=== PATIENT | male | born 1940 | race Caucasian/White ===

== ENCOUNTER 2016-07-21 14:41 | Emergency (ER) | payer MEDICARE ==
[2016-07-21 14:49] VITALS: TEMP 97
[2016-07-21] MEDS ORDERED: MORPHINE SULFATE 4 MG/ML SYRINGE IV STA (15:13)
[2016-07-21] MEDS ORDERED: SODIUM CHLORIDE 0.9% 1,000 ML IV STA ×2 (15:13)
[2016-07-21] MEDS ORDERED: HYDROcodone/APAP 10-325MG 1 EACH TAB PO ONE (16:03)
[2016-07-21 16:07] LABS: Basophils # (A) 0.1 k/uL (0-0.2); Basophils % (A) 1 %; CHCM 32.4; Eosinophils # (A) 0.5 k/uL (0-0.7); Eosinophils % (A) 4 %; HCT 34.2 % (39.0-53.0); HGB 10.5 gm/dL (13.0-17.5); Hypochromasia Slight; Luc # (Auto) 0.14; Luc % (Auto) 1; Lymphocytes # (A) 1.5 k/uL (1.0-4.8); Lymphocytes % (A) 13 %; MCH 29.5 pg (25.0-35.0); MCHC 30.6 g/dL (31.0-37.0); MCV 96.3 fL (80.0-100.0); Mean Platelet Volume 7.4; Monocytes # (A) 0.8 k/uL (0-1.0); Monocytes % (A) 7 %; Neutrophils # (A) 8.6 k/uL (1.3-7.7); Neutrophils % (A) 75 %; Poikilocytosis Slight; RBC 3.55 m/uL (4.30-5.90); RDW 14.4 % (11.5-15.5); WBC 11.6 k/uL (3.8-10.6); WBC (Perox) 11.73
[2016-07-21] MEDS ORDERED: HYDROcodone/APAP 5-325MG 1 EACH TAB PO STA (16:07)
[2016-07-21 16:19] LABS: Calcium 9.4 mg/dL (8.4-10.2); Magnesium 1.5 mg/dL (1.6-2.3); Phosphorous 4.2 mg/dL (2.5-4.5); Potassium 3.7 mmol/L (3.5-5.1); Total Bilirubin 0.6 mg/dL (0.2-1.3); Total Protein 7.1 g/dL (6.3-8.2)
[2016-07-21 16:21] LABS: INR 1.1 (<1.1); Partial Thromboplastin Time 22.4 sec (22.0-30.0)
[2016-07-21 16:27] LABS: Creatine Kinase 54 U/L (55-170)
[2016-07-21 16:39] LABS: Troponin I <0.012 ng/mL (0.000-0.034)
--- NOTE | 2016-07-21 17:01 | CT ---
EXAMINATION TYPE: CT brain wo con DATE OF EXAM: 07/21/2016 4:57 PM COMPARISON: NONE HISTORY: Patient complains of posterior head pain and left arm numbness. CT DLP: 902.4 mGycm Automated exposure control for dose reduction was used. FINDINGS: There is mild cerebral cortical atrophy. There is no mass effect or midline shift. There is no sign o f intracranial hemorrhage. The calvarium is intact. IMPRESSION: Mild atrophy. No acute intracranial abnormality.
--- NOTE | 2016-07-21 17:09 | ED ---
General Adult HPI - General Chief complaint: Headache Stated complaint: head & shoulder pain-post op Time Seen by Provider: 07/21/16 15:04 Source: patient, RN notes reviewed, old records reviewed Mode of arrival: wheelchair Limitations: no limitations - History of Present Illness Initial comments: This is a 76-year-old male here for evaluation a. Patient's coming in for evaluation of multiple complaints. Most complaints heavy-duty with weakness and fatigue. Patient received going to increased stress with severe surgery, CABG, infection to incision, and prolonged hospitalization rehab. Hospitalization and again rehab. Patient states he is having left shoulder pain which is mechanical, worse with movement. No chest pain no shortness of breath no abdominal pain occasional headaches. No modifying factors for symptoms. No fevers no trauma. - Related Data Home Medications Medication Instructions Recorded Confirmed Ipratropium-Albuterol Nebulize 3 ml INHALATION RT-TID 06/19/16 07/22/16 [Duoneb 0.5 mg-3 mg/3 ml Soln] Pantoprazole [Protonix] 40 mg PO DAILY 06/19/16 07/22/16 Sennosides-Docusate Sodium 2 tab PO HS 06/19/16 07/22/16 [Senokot-S] metFORMIN HCL [Glucophage] 500 mg PO BID 06/19/16 07/22/16 Aspirin 325 mg PO HS 07/21/16 07/22/16 Atorvastatin [Lipitor] 40 mg PO HS 07/21/16 07/22/16 Cholecalciferol [Vitamin D3] 1,000 unit PO HS 07/21/16 07/22/16 amLODIPine [Norvasc] 5 mg PO DAILY 07/21/16 07/22/16 Allopurinol [Zyloprim] 150 mg PO DAILY 07/22/16 07/22/16 Melatonin 1 mg PO HS 07/22/16 07/22/16 Psyllium Husk 100% [Metamucil 6 gm PO DAILY 07/22/16 07/22/16 Packet] Previous Rx's Medication Instructions Recorded Clopidogrel [Plavix] 75 mg PO DAILY tab 06/12/16 Metoprolol Tartrate [Lopressor] 150 mg PO BID #0 06/26/16 Vancomycin 1,750 mg IVPB Q24HR #21 bag 07/25/16 Diclofenac Sodium Gel [Voltaren 4 gm TOPICAL QID tube 07/26/16 Gel] HYDROcodone/APAP 5-325MG [[place] 1 tab PO Q4HR PRN #20 tab 07/26/16 5-325] Mupirocin 2% Oint [Bactroban 2% 1 applic TOPICAL DAILY applic 07/26/16 Oint] Petrolatum, White [Aquaphor] 1 applic TOPICAL DAILY applic 07/26/16 Allergies Allergy/AdvReac Type Severity Reaction Status Date / Time No Known Allergies Allergy Verified 07/22/16 08:22 Review of Systems ROS Statement: Those systems with pertinent positive or pertinent negative responses have been documented in the HPI. ROS Other: All systems not noted in ROS Statement are negative. Past Medical History Past Medical History: Cancer, Hyperlipidemia, Hypertension, Musculoskeletal Disorder, Sleep Apnea/CPAP/BIPAP Additional Past Medical History / Comment(s): GOUT,SKIN CA 2005, CHRONIC BACK PAIN,CONSTIPATION,BLISTERS ON LEGS, TESTICALS SWELING, BOTTOM REDDEND NO OPEN AREA History of Any Multi-Drug Resistant Organisms: None Reported Past Surgical History: Cholecystectomy, Coronary Bypass/CABG, Heart Catheterization, Joint Replacement, Tonsillectomy Additional Past Surgical History / Comment(s): COLONOSCOPY, EGD, CANCEROUS SKIN LESIONS REMOVED, TOTAL RIGHT KNEE REPLACEMENT, QUAD BYPASS Past Anesthesia/Blood Transfusion Reactions: Previous Problems w/ Anesthesia Additional Past Anesthesia/Blood Transfusion Reaction / Comment(s): HAD A HARD TIME COMING OUT OF ANESTHESIA AFTER CHOLECYSTECTOMY Past Psychological History: No Psychological Hx Reported Additional Psychological History / Comment(s): HAD CABG -WENT TO [facility] FOR REHAB. STATED THAT PT AHS BEEN GETTING UP WALKING TID. USES W/C FOR LONG DISTANCE. 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 No illnesses when he was there. No animal exposures. There is no family home with his . No extensive travels. Tobacco smoking stopped in 1988. No significant alcohol use Smoking Status: Former smoker Past Alcohol Use History: Occasional Past Drug Use History: None Reported - Past Family History Father Family Medical History: Vascular Disorder Additional Family Medical History / Comment(s): POOR CIRCULATION-HAD AMPUTATIONS D/T POOR CIRCULATION Mother Family Medical History: Cancer General Exam - General Exam Comments Initial Comments: Tenderness to left shoulder Limitations: no limitations General appearance: alert, in no apparent distress Head exam: Present: atraumatic, normocephalic, normal inspection Eye exam: Present: normal appearance, PERRL, EOMI. Absent: scleral icterus, conjunctival injection, periorbital swelling ENT exam: Present: normal exam, mucous membranes moist Neck exam: Present: normal inspection. Absent: tenderness, meningismus, lymphadenopathy Respiratory exam: Present: normal lung sounds bilaterally. Absent: respiratory distress, wheezes, rales, rhonchi, stridor Cardiovascular Exam: Present: regular rate, normal rhythm, normal heart sounds. Absent: systolic murmur, diastolic murmur, rubs, gallop, clicks GI/Abdominal exam: Present: soft, normal bowel sounds. Absent: distended, tenderness, guarding, rebound, rigid Extremities exam: Present: normal inspection, full ROM, normal capillary refill. Absent: tenderness, pedal edema, joint swelling, calf tenderness Back exam: Present: normal inspection Neurological exam: Present: alert, oriented X3, CN II-XII intact Psychiatric exam: Present: normal affect, normal mood Skin exam: Present: warm, dry, intact, normal color. Absent: rash Course Vital Signs 07/21/16 07/21/16 07/21/16 14:43 15:30 16:00 Temperature 97.0 F L Pulse Rate 90 90 Pulse Rate [ 90 Rivet Sorter ] Respiratory 22 20 Rate Blood Pressure 185/75 185/79 O2 Sat by Pulse 88 L 96 Oximetry 07/21/16 07/21/16 17:00 18:00 Temperature Pulse Rate 88 90 Pulse Rate [ Rivet Sorter ] Respiratory 18 20 Rate Blood Pressure 179/78 179/80 O2 Sat by Pulse 95 95 Oximetry EKG Findings - EKG Comments: EKG Findings:: EKG shows normal sinus rhythm rate of 91, pO2 2, QRS 86, QTC 452 Medical Decision Making - Medical Decision Making 76 male to the ER with postoperative symptoms. Patient having issues with pain left shoulder pain, chest pain. Headache. All studies are negative at this time, lab work is normal, patient does have urinary tract infection, we'll start antibiotics and patient can be discharged home outpatient spelled with greater than 15 minutes regarding medical conditions, activity level, patient feels good with plan - Lab Data Result diagrams: 07/21/16 15:55 07/21/16 15:55 Lab Results 07/21/16 07/21/16 07/21/16 Range/Units 15:55 15:55 15:55 WBC 11.6 H (3.8-10.6) k/uL RBC 3.55 L (4.30-5.90) m/uL Hgb 10.5 L (13.0-17.5) gm/dL Hct 34.2 L (39.0-53.0) % MCV 96.3 (80.0-100.0) fL MCH 29.5 (25.0-35.0) pg MCHC 30.6 L (31.0-37.0) g/dL RDW 14.4 (11.5-15.5) % Plt Count 474 H (150-450) k/uL Neutrophils % 75 % Lymphocytes % 13 % Monocytes % 7 % Eosinophils % 4 % Basophils % 1 % Neutrophils # 8.6 H (1.3-7.7) k/uL Lymphocytes # 1.5 (1.0-4.8) k/uL Monocytes # 0.8 (0-1.0) k/uL Eosinophils # 0.5 (0-0.7) k/uL Basophils # 0.1 (0-0.2) k/uL Hypochromasia Slight Poikilocytosis Slight PT (9.0-12.0) sec INR (<1.1) APTT (22.0-30.0) sec Sodium 141 (137-145) mmol/L Potassium 3.7 (3.5-5.1) mmol/L Chloride 94 L (98-107) mmol/L Carbon Dioxide 32 H (22-30) mmol/L Anion Gap 15 mmol/L BUN 16 (9-20) mg/dL Creatinine 1.42 H (0.66-1.25) mg/dL Est GFR (MDRD) Af Amer 59 (>60 ml/min/1.73 sqM) Est GFR (MDRD) Non-Af 49 (>60 ml/min/1.73 sqM) Glucose 115 H (74-99) mg/dL Plasma Lactic Acid Paul (0.7-2.0) mmol/L Calcium 9.4 (8.4-10.2) mg/dL Phosphorus 4.2 (2.5-4.5) mg/dL Magnesium 1.5 L (1.6-2.3) mg/dL Total Bilirubin 0.6 (0.2-1.3) mg/dL AST 25 (17-59) U/L ALT 29 (21-72) U/L Alkaline Phosphatase 89 (38-126) U/L Total Creatine Kinase 54 L (55-170) U/L CK-MB (CK-2) 1.0 (0.0-2.4) ng/mL CK-MB (CK-2) Rel Index 1.9 Troponin I <0.012 (0.000-0.034) ng/mL NT-Pro-B Natriuret Pep pg/mL Total Protein 7.1 (6.3-8.2) g/dL Albumin 4.2 (3.5-5.0) g/dL Urine Color Urine Appearance (Clear) Urine pH (5.0-8.0) Ur Specific [place] (1.001-1.035) Urine Protein (Negative) Urine Glucose (UA) (Negative) Urine Ketones (Negative) Urine Blood (Negative) Urine Nitrate (Negative) Urine Bilirubin (Negative) Urine Urobilinogen (<2.0) mg/dL Ur Leukocyte Esterase (Negative) Urine RBC (0-5) /hpf Urine WBC (0-5) /hpf Ur Squamous Epith Cells (0-4) /hpf Hyaline Casts (0-2) /lpf Urine Mucus (None) /hpf 07/21/16 07/21/16 07/21/16 Range/Units 15:55 15:55 15:55 WBC (3.8-10.6) k/uL RBC (4.30-5.90) m/uL Hgb (13.0-17.5) gm/dL Hct (39.0-53.0) % MCV (80.0-100.0) fL MCH (25.0-35.0) pg MCHC (31.0-37.0) g/dL RDW (11.5-15.5) % Plt Count (150-450) k/uL Neutrophils % % Lymphocytes % % Monocytes % % Eosinophils % % Basophils % % Neutrophils # (1.3-7.7) k/uL Lymphocytes # (1.0-4.8) k/uL Monocytes # (0-1.0) k/uL Eosinophils # (0-0.7) k/uL Basophils # (0-0.2) k/uL Hypochromasia Poikilocytosis PT 11.0 (9.0-12.0) sec INR 1.1 (<1.1) APTT 22.4 (22.0-30.0) sec Sodium (137-145) mmol/L Potassium (3.5-5.1) mmol/L Chloride (98-107) mmol/L Carbon Dioxide (22-30) mmol/L Anion Gap mmol/L BUN (9-20) mg/dL Creatinine (0.66-1.25) mg/dL Est GFR (MDRD) Af Amer (>60 ml/min/1.73 sqM) Est GFR (MDRD) Non-Af (>60 ml/min/1.73 sqM) Glucose (74-99) mg/dL Plasma Lactic Acid Paul 1.4 (0.7-2.0) mmol/L Calcium (8.4-10.2) mg/dL Phosphorus (2.5-4.5) mg/dL Magnesium (1.6-2.3) mg/dL Total Bilirubin (0.2-1.3) mg/dL AST (17-59) U/L ALT (21-72) U/L Alkaline Phosphatase (38-126) U/L Total Creatine Kinase (55-170) U/L CK-MB (CK-2) (0.0-2.4) ng/mL CK-MB (CK-2) Rel Index Troponin I (0.000-0.034) ng/mL NT-Pro-B Natriuret Pep 2400 pg/mL Total Protein (6.3-8.2) g/dL Albumin (3.5-5.0) g/dL Urine Color Urine Appearance (Clear) Urine pH (5.0-8.0) Ur Specific [place] (1.001-1.035) Urine Protein (Negative) Urine Glucose (UA) (Negative) Urine Ketones (Negative) Urine Blood (Negative) Urine Nitrate (Negative) Urine Bilirubin (Negative) Urine Urobilinogen (<2.0) mg/dL Ur Leukocyte Esterase (Negative) Urine RBC (0-5) /hpf Urine WBC (0-5) /hpf Ur Squamous Epith Cells (0-4) /hpf Hyaline Casts (0-2) /lpf Urine Mucus (None) /hpf 07/21/16 Range/Units 17:52 WBC (3.8-10.6) k/uL RBC (4.30-5.90) m/uL Hgb (13.0-17.5) gm/dL Hct (39.0-53.0) % MCV (80.0-100.0) fL MCH (25.0-35.0) pg MCHC (31.0-37.0) g/dL RDW (11.5-15.5) % Plt Count (150-450) k/uL Neutrophils % % Lymphocytes % % Monocytes % % Eosinophils % % Basophils % % Neutrophils # (1.3-7.7) k/uL Lymphocytes # (1.0-4.8) k/uL Monocytes # (0-1.0) k/uL Eosinophils # (0-0.7) k/uL Basophils # (0-0.2) k/uL Hypochromasia Poikilocytosis PT (9.0-12.0) sec INR (<1.1) APTT (22.0-30.0) sec Sodium (137-145) mmol/L Potassium (3.5-5.1) mmol/L Chloride (98-107) mmol/L Carbon Dioxide (22-30) mmol/L Anion Gap mmol/L BUN (9-20) mg/dL Creatinine (0.66-1.25) mg/dL Est GFR (MDRD) Af Amer (>60 ml/min/1.73 sqM) Est GFR (MDRD) Non-Af (>60 ml/min/1.73 sqM) Glucose (74-99) mg/dL Plasma Lactic Acid Paul (0.7-2.0) mmol/L Calcium (8.4-10.2) mg/dL Phosphorus (2.5-4.5) mg/dL Magnesium (1.6-2.3) mg/dL Total Bilirubin (0.2-1.3) mg/dL AST (17-59) U/L ALT (21-72) U/L Alkaline Phosphatase (38-126) U/L Total Creatine Kinase (55-170) U/L CK-MB (CK-2) (0.0-2.4) ng/mL CK-MB (CK-2) Rel Index Troponin I (0.000-0.034) ng/mL NT-Pro-B Natriuret Pep pg/mL Total Protein (6.3-8.2) g/dL Albumin (3.5-5.0) g/dL Urine Color Light Yellow Urine Appearance Clear (Clear) Urine pH 5.5 (5.0-8.0) Ur Specific [place] 1.006 (1.001-1.035) Urine Protein Trace H (Negative) Urine Glucose (UA) Negative (Negative) Urine Ketones Negative (Negative) Urine Blood Negative (Negative) Urine Nitrate Negative (Negative) Urine Bilirubin Negative (Negative) Urine Urobilinogen <2.0 (<2.0) mg/dL Ur Leukocyte Esterase Moderate H (Negative) Urine RBC 2 (0-5) /hpf Urine WBC 16 H (0-5) /hpf Ur Squamous Epith Cells 4 (0-4) /hpf Hyaline Casts 1 (0-2) /lpf Urine Mucus Rare H (None) /hpf - Radiology Data Radiology results: report reviewed (CT brain, negative for acute disease, chest shoulder), image reviewed Disposition Clinical Impression: Weakness, UTI (urinary tract infection) Disposition: HOME SELF-CARE Condition: Good Instructions: Weakness (ED), Urinary Tract Infection in Men (ED) Referrals: Martinez Yoo MD [Primary Care Provider] - 1-2 days
--- NOTE | 2016-07-21 17:21 | XR ---
EXAMINATION TYPE: XR chest 2V DATE OF EXAM: 07/21/2016 5:07 PM COMPARISON: 06/24/2016 HISTORY: Shoulder pain. Chest pain TECHNIQUE: Frontal and lateral views of the chest are obtained. FINDINGS: There is blunting of costophrenic angles. There is infiltrate at the left lung base. There is mild pulmonary congestion. There are chest leads. There are sternal wires. IMPRESSION: There are pleural effusions and mild infiltrates at the lung bases. There is probably mi ld heart failure. No change compared to last exam.
--- NOTE | 2016-07-21 17:22 | XR ---
EXAMINATION TYPE: XR clavicle LT DATE OF EXAM: 07/21/2016 5:07 PM COMPARISON: NONE HISTORY: Shoulder pain TECHNIQUE: 2 views FINDINGS: There is narrowing and spurring at the AC joint. There is obliteration of the subacromial j oint space. I see no fracture. IMPRESSION: Severe subacromial impingement consistent with chronic rotator cuff tear. Osteoarthritis of the AC joint. No fracture seen.
--- NOTE | 2016-07-21 17:23 | XR ---
EXAMINATION TYPE: XR shoulder complete LT DATE OF EXAM: 07/21/2016 5:08 PM COMPARISON: NONE HISTORY: Shoulder pain TECHNIQUE: 4 views FINDINGS: There is spurring at the glenohumeral joint. There is obliteration of subacromial joint spa ce. There is spurring at the AC joint. IMPRESSION: Osteoarthritis. No fracture. Subacromial impingement consistent with chronic rotator cuff tear.
[2016-07-21 18:24] LABS: Appearance,Urine Clear (Clear); Bilirubin,Urine Negative (Negative); Glucose,Urine (UA) Negative (Negative); Ketones,Urine Negative (Negative); Leukocyte Esterase,Urine Moderate (Negative); Mucus,Urine Rare /hpf; Nitrite,Urine Negative (Negative); PH, Urine 5.5 (5.0-8.0); Particle Count 1666; Protein,Urine Trace (Negative); RBC,Urine 2 /hpf (0-5); Specific Gravity,Urine 1.006 (1.001-1.035); Squamous Epithelial Cell,Urine 4 /hpf (0-4); UA Billing (MACRO vs. MICRO) MICRO; Urobilinogen,Urine <2.0 mg/dL (<2.0); WBC,Urine 16 /hpf (0-5)
[2016-07-21 18:47] VITALS: BP 179/80; PULSE 90; RESP 20
== END 2016-07-21 18:15 | disposition home or self-care (01) ==
LOC: EC 14:41
DX: N39.0 Urinary tract infection, site not specified (principal); R53.1 Weakness; R91.8 Other nonspecific abnormal finding of lung field; J90 Pleural effusion, not elsewhere classified; I10 Essential (primary) hypertension; E78.5 Hyperlipidemia, unspecified; M10.9 Gout, unspecified; M19.012 Primary osteoarthritis, left shoulder; Z87.891 Personal history of nicotine dependence; Z95.1 Presence of aortocoronary bypass graft; G47.30 Sleep apnea, unspecified; Z79.899 Other long term (current) drug therapy; Z79.84 Long term (current) use of oral hypoglycemic drugs; Z79.02 Long term (current) use of antithrombotics/antiplatelets
CPT/HCPCS: 36415; 70450; 71020; 80053; 81001; 82550; 82553; 83605; 83735; 83880; 84100; 84484; 85025; 85610; 85730; 87086; 93005; 99284

== ENCOUNTER 2016-07-22 05:44 | Inpatient (IN) | payer MEDICARE ==
[2016-07-22] MEDS ORDERED: IBUPROFEN 600 MG TAB PO STA (05:49)
[2016-07-22] MEDS ORDERED: ACETAMINOPHEN TAB 500 MG TAB PO STA (05:49)
[2016-07-22] MEDS ORDERED: SODIUM CHLORIDE 0.9% 1,000 ML IV STA (05:49)
[2016-07-22] MEDS ORDERED: LEVOFLOXACIN 750MG-D5W PMX 750 MG in DEXTROSE/WATER 1 150ML.BAG IVPB STA (05:53)
[2016-07-22] MEDS ORDERED: SODIUM CHLORIDE 0.9% 500 ML IV STA (05:57)
--- NOTE | 2016-07-22 05:57 | ED ---
General Adult HPI - General Source: patient, EMS, RN notes reviewed Mode of arrival: EMS Limitations: no limitations <Steve Rico - Last Filed: 07/22/16 06:41> <Joe Sanabria - Last Filed: 07/22/16 09:14> - General Chief complaint: Weakness Stated complaint: fall, diarrhea, weakness Time Seen by Provider: 07/22/16 05:45 - History of Present Illness Initial comments: This is a 76-year-old male who presents to the emergency department after having been seen within the last 24 hours and emergency department. Patient was home went to the bathroom was unable to get off the toilet he was too weak all over. Patient's was there and she was unable to assist him enough weak he could off the toilet. Patient states he just feels completely fatigued. He was told earlier that he had a urinary tract infection. Patient denies any shortness of breath or difficulty breathing he states he does have an occasional cough. Patient denies any abdominal pain he denies nausea vomiting states she did have some diarrhea tonight. Patient denies any headache. Patient denies lightheadedness or dizziness patient denies any focal weakness or numbness. Patient's only complaint is that he is generally weak and fatigued. (Steve Rico) - Related Data Home Medications Medication Instructions Recorded Confirmed Furosemide [Lasix] 40 mg PO DAILY 06/19/16 07/22/16 Ipratropium-Albuterol Nebulize 3 ml INHALATION RT-TID 06/19/16 07/22/16 [Duoneb 0.5 mg-3 mg/3 ml Soln] Pantoprazole [Protonix] 40 mg PO DAILY 06/19/16 07/22/16 Sennosides-Docusate Sodium 2 tab PO HS 06/19/16 07/22/16 [Senokot-S] metFORMIN HCL [Glucophage] 500 mg PO BID 06/19/16 07/22/16 ALPRAZolam [Xanax] 0.25 mg PO TID 07/21/16 07/22/16 Aspirin 325 mg PO HS 07/21/16 07/22/16 Atorvastatin [Lipitor] 40 mg PO HS 07/21/16 07/22/16 Cholecalciferol [Vitamin D3] 1,000 unit PO HS 07/21/16 07/22/16 amLODIPine [Norvasc] 5 mg PO DAILY 07/21/16 07/22/16 Allopurinol [Zyloprim] 150 mg PO DAILY 07/22/16 07/22/16 Melatonin 1 mg PO HS 07/22/16 07/22/16 Psyllium Husk 100% [Metamucil] 6 gm PO DAILY 07/22/16 07/22/16 Previous Rx's Medication Instructions Recorded Clopidogrel [Plavix] 75 mg PO DAILY tab 06/12/16 HYDROcodone/APAP 5-325MG [[place] 1 tab PO Q4HR PRN #20 tab 06/26/16 5-325] Metoprolol Tartrate [Lopressor] 150 mg PO BID #0 06/26/16 Allergies Allergy/AdvReac Type Severity Reaction Status Date / Time No Known Allergies Allergy Verified 07/22/16 08:22 Review of Systems ROS Other: All systems not noted in ROS Statement are negative. <Steve Rico - Last Filed: 07/22/16 06:41> ROS Other: All systems not noted in ROS Statement are negative. <Joe Sanabria - Last Filed: 07/22/16 09:14> ROS Statement: Those systems with pertinent positive or pertinent negative responses have been documented in the HPI. Past Medical History Past Medical History: Cancer, Hyperlipidemia, Hypertension, Musculoskeletal Disorder, Sleep Apnea/CPAP/BIPAP Additional Past Medical History / Comment(s): GOUT,SKIN CA 2005, CHRONIC BACK PAIN,CONSTIPATION,BLISTERS ON LEGS, TESTICALS SWELING, BOTTOM REDDEND NO OPEN AREA History of Any Multi-Drug Resistant Organisms: None Reported Past Surgical History: Cholecystectomy, Coronary Bypass/CABG, Heart Catheterization, Joint Replacement, Tonsillectomy Additional Past Surgical History / Comment(s): COLONOSCOPY, EGD, CANCEROUS SKIN LESIONS REMOVED, TOTAL RIGHT KNEE REPLACEMENT, QUAD BYPASS Past Anesthesia/Blood Transfusion Reactions: Previous Problems w/ Anesthesia Additional Past Anesthesia/Blood Transfusion Reaction / Comment(s): HAD A HARD TIME COMING OUT OF ANESTHESIA AFTER CHOLECYSTECTOMY Past Psychological History: No Psychological Hx Reported Additional Psychological History / Comment(s): HAD CABG -WENT TO [facility] FOR REHAB. STATED THAT PT AHS BEEN GETTING UP WALKING TID. USES W/C FOR LONG DISTANCE. 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 No illnesses when he was there. No animal exposures. There is no family home with his . No extensive travels. Tobacco smoking stopped in 1988. No significant alcohol use Smoking Status: Former smoker Past Alcohol Use History: Occasional Past Drug Use History: None Reported - Past Family History Father Family Medical History: Vascular Disorder Additional Family Medical History / Comment(s): POOR CIRCULATION-HAD AMPUTATIONS D/T POOR CIRCULATION Mother Family Medical History: Cancer <Steve Rico - Last Filed: 07/22/16 06:41> General Exam Limitations: no limitations <Steve Rico - Last Filed: 07/22/16 06:41> <Joe Sanabria - Last Filed: 07/22/16 09:14> - General Exam Comments Initial Comments: GENERAL: Patient is well-developed and well-nourished. Patient is nontoxic and well- hydrated and is in mild distress. Patient feels febrile ENT: Neck is soft and supple. No significant lymphadenopathy is noted. Oropharynx is clear. Moist mucous membranes. Neck has full range of motion without eliciting any pain. EYES: The sclera were anicteric and conjunctiva were pink and moist. Extraocular movements were intact and pupils were equal round and reactive to light. Eyelids were unremarkable. PULMONARY: Diminished breath sounds with some crackles in the bases CARDIOVASCULAR: There is a regular rate and rhythm without any murmurs gallops or rubs. ABDOMEN: Soft and nontender with normal bowel sounds. No palpable organomegaly was noted. There is no palpable pulsatile mass. SKIN: Skin is clear with no lesions or rashes and otherwise unremarkable. NEUROLOGIC: Patient is alert and oriented x3. Cranial nerves II through XII are grossly intact. Motor and sensory are also intact. Normal speech, volume and content. Symmetrical smile. MUSCULOSKELETAL: Normal extremities with adequate strength and full range of motion. 2+ edema. LYMPHATICS: No significant lymphadenopathy is noted PSYCHIATRIC: Normal psychiatric evaluation. (Steve Rico) Medical Decision Making <Steve Rico - Last Filed: 07/22/16 06:41> - Lab Data Result diagrams: 07/22/16 06:50 07/22/16 06:50 <Joe Sanabria - Last Filed: 07/22/16 09:14> - Medical Decision Making Dr. Ferro will be taking over care of this patient at 7 AM (Steve Rico) I receive this patient has a sign out from Dr. Rico, to arrange the patient's admission once his studies had returned. The patient's lactic acid is now elevated. Discussed the case with Dr. Barcenas, who will admit the patient. The patient will have infectious disease consultation with Dr. Lala. Antibiotic coverage started by Dr. Rico, and additional cultures are pending. ( Joe Sanabria) - Lab Data Lab Results 07/22/16 07/22/16 07/22/16 Range/Units 06:50 06:50 06:50 WBC 13.1 H (3.8-10.6) k/uL RBC 3.83 L (4.30-5.90) m/uL Hgb 11.1 L (13.0-17.5) gm/dL Hct 36.7 L (39.0-53.0) % MCV 95.8 (80.0-100.0) fL MCH 29.1 (25.0-35.0) pg MCHC 30.4 L (31.0-37.0) g/dL RDW 14.4 (11.5-15.5) % Plt Count 481 H (150-450) k/uL Neutrophils % (Manual) 86.0 % Band Neutrophils % 7.0 % Lymphocytes % (Manual) 3.0 % Monocytes % (Manual) 3.0 % Eosinophils % (Manual) 1.0 % Neutrophils # (Manual) 12.2 H (1.3-7.7) k/uL Lymphocytes # (Manual) 0.4 L (1.0-4.8) k/uL Monocytes # (Manual) 0.4 (0-1.0) k/uL Eosinophils # (Manual) 0.1 (0-0.7) k/uL Nucleated RBCs 0 (0-0) /100 WBC Manual Slide Review Performed Hypochromasia Moderate Poikilocytosis Slight Sodium 143 (137-145) mmol/L Potassium 4.2 (3.5-5.1) mmol/L Chloride 96 L (98-107) mmol/L Carbon Dioxide 29 (22-30) mmol/L Anion Gap 18 mmol/L BUN 21 H (9-20) mg/dL Creatinine 1.43 H (0.66-1.25) mg/dL Est GFR (MDRD) Af Amer 59 (>60 ml/min/1.73 sqM) Est GFR (MDRD) Non-Af 48 (>60 ml/min/1.73 sqM) Glucose 142 H (74-99) mg/dL Plasma Lactic Acid Paul 2.3 H* (0.7-2.0) mmol/L Calcium 9.4 (8.4-10.2) mg/dL Total Bilirubin 0.9 (0.2-1.3) mg/dL AST 38 (17-59) U/L ALT 30 (21-72) U/L Alkaline Phosphatase 75 (38-126) U/L Total Protein 7.4 (6.3-8.2) g/dL Albumin 4.2 (3.5-5.0) g/dL Disposition <Steve Rico - Last Filed: 07/22/16 06:41> <Joe Sanabria - Last Filed: 07/22/16 09:14> Clinical Impression: Sepsis Disposition: ADMITTED IP TO THIS [facility] Condition: Poor
[2016-07-22 07:08] LABS: CH 30.2; CHCM 31.7; HCT 36.7 % (39.0-53.0); HDW 3.85; HGB 11.1 gm/dL (13.0-17.5); Hypochromasia Moderate; Immature Gran Flag Marked; MCH 29.1 pg (25.0-35.0); MCHC 30.4 g/dL (31.0-37.0); MCV 95.8 fL (80.0-100.0); Mean Platelet Volume 7.4; Poikilocytosis Slight; RBC 3.83 m/uL (4.30-5.90); RDW 14.4 % (11.5-15.5); WBC 13.1 k/uL (3.8-10.6); WBC (Perox) 12.81
[2016-07-22 07:21] LABS: Calcium 9.4 mg/dL (8.4-10.2); Total Bilirubin 0.9 mg/dL (0.2-1.3)
[2016-07-22 07:26] LABS: Potassium 4.2 mmol/L (3.5-5.1); Total Protein 7.4 g/dL (6.3-8.2)
[2016-07-22 07:53] LABS: Add Differential Manual Differential
[2016-07-22 07:54] LABS: Manual Review Performed; Nucleated Red Blood Cells 0 /100 WBC (0-0); Total Cells Counted 100
[2016-07-22] MEDS ORDERED: IV VANCOMYCIN PER PHARMACY 1 EACH MISC MISCELLANE PRN (08:52)
[2016-07-22] MEDS ORDERED: SODIUM CHLORIDE 0.9% 1,000 ML IV ONE (08:54)
[2016-07-22] MEDS ORDERED: ENOXAPARIN 120 MG/0.8 ML SYRINGE SQ STA (09:00)
[2016-07-22] MEDS ORDERED: VANCOMYCIN 1,750 MG in SODIUM CHLORIDE 0.9% 250 ML IVPB STA (09:03)
[2016-07-22 10:15] LABS: INR 1.1 (<1.1); Prothrombin Time 10.7 sec (9.0-12.0)
[2016-07-22 10:23] LABS: Partial Thromboplastin Time 20.8 sec (22.0-30.0)
[2016-07-22 10:26] LABS: Creatine Kinase MB 1.5 ng/mL (0.0-2.4); Troponin I 0.027 ng/mL (0.000-0.034)
--- NOTE | 2016-07-22 11:35 | US ---
EXAMINATION TYPE: US venous doppler duplex LE DATE OF EXAM: 07/22/2016 10:21 AM COMPARISON: Prior leg venous Doppler 23 December 2013 CLINICAL HISTORY: Bilateral leg pain and swelling. Grayscale, color Doppler, spectral Doppler imaging performed of the deep veins of the lower extremiti es. SIDE PERFORMED: Bilateral VESSELS IMAGED: External Iliac Vein (EIV) Common Femoral Vein Deep Femoral Vein Greater Saphenous Vein * Femoral Vein Popliteal Vein Small Saphenous Vein * Proximal Calf Veins (* superficial vessels) TECHNOLOGIST IMPRESSION: Right Leg: Negative for DVT Left Leg: Negative for DVT, left popliteal fossa: 5.1 x 1.7 x 2.5cm hypoechoic area medial to vessel s, possible Newell's cyst IMPRESSION: No evidence of venous thrombosis within the deep veins of the lower extremities is visua iza. 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
[2016-07-22] MEDS ORDERED: LIDOCAINE 2% INJ 20 MG/ML SQ ONE (15:58)
--- NOTE | 2016-07-22 16:47 | IR ---
EXAMINATION TYPE: IR cvc insert >=5 years DATE OF EXAM: 07/22/2016 4:19 PM COMPARISON: NONE CLINICAL HISTORY: Sepsis Needs long-term intravenous access for antibiotics. PROCEDURE: After informed consent, the skin overlying the right brachial vein was localized with ultrasound and noted to be compressible and patent. An ultrasound image was obtained and submitted on the patient's chart. The overlying skin was prepped and draped and Lidocaine was used for local anesthesia. A sk in ilia was made with a scalpel. Access was gained to the vein under ultrasound guidance with a 21 g auge needle and a 0.018 inch wire was advanced. Access site was dilated with Peel-Away sheath and ca theter tailored to the appropriate length and advanced such that the distal tip is at the cavoatrial junction. Spot image was obtained verifying placement. Catheter was fixed to the skin with suture a nd a sterile dressing was placed following hemostasis. Catheter was aspirated and flushed with salin e. Patient was discharged in stable condition without complication. Maximal barrier technique is uti lized. Ultrasound image is documented on the chart. Ultrasound used with sterile technique. Fluoro time and fluoroscopic images submitted to document procedure: 0.7 minutes fluoroscopy time, 50 intraoperative C-arm images IMPRESSION: STATUS POST ULTRASOUND AND FLUOROSCOPIC GUIDED PICC LINE PLACEMENT, READY FOR USE. THIS PROCEDURE WAS PERFORMED BY THE UNDERSIGNED.
--- NOTE | 2016-07-22 18:49 | P.CONS ---
History of Present Illness - Reason for Consult Consult date: 07/22/16 - Chief Complaint Generalized weakness and diarrhea - History of Present Illness Pleasant 76-year-old male presented to Hospital originally on 2015. The point, he had chest pain and was having a 6 weeks timeframe of increasing shortness of breath. On the day of presentation he was outside doing yard work he develops to be in chest pain became clammy and was brought to hospital. It evidence of a non-ST myocardial infarction. Cardiac catheterization was performed evidence of severe coronary disease as well as left distal main thrombosis. He was then taken to the operating room and had a four-vessel coronary artery bypass grafting procedure his sternum required repair with a cable and plate system. He did go to [facility] rehab for rehabilitation after his stay because he was so weak. 3 days before his second admission on 06/19/2016 he was or any of some difficulty with the sternal wound. Is unable bit of drainage. As he was admitted and infectious disease consultation occurred. He had evidence of an Acientobacter infection at that site. It was treated with antibiotic therapy. Marked improvement and was discharged. Subsequently he is then brought to the home setting after his rehab stay. She'll relatively well until the last 48 hours. The patient's relates that the occupational therapist, the home and they noticed that he was unable to raise his left arm. He has been evaluated and likely has a tear to his left shoulder. Although this was noted the patient was started have increasing difficulties with not feeling well. He was becoming much more weak. He developed significant amounts of diarrhea but there is evidence of any melena or hematochezia. He became dehydrated and was brought back to the emergency room again today. He subsequently has been admitted is receiving fluids. There is concerns. The fever to 102 and there could be a urinary tract infection versus sepsis. His lactic acid was elevated. It is tender patient has been admitted to selective care. He is feeling slightly better since he received some fluids. IV access was a great difficulty and a PICC line has now been placed. Review of Systems HEENT:Denies headache or acute visual change. Denies sinus or mouth discomforts. Denies neck stiffness or pain. Denies significant oral cavity pain. Denies difficulty on swallowing. Lungs: Has dyspnea on exertion with minimal cough. He is not having severe sputum production and no hemoptysis. Cardiovascular: Not having chest pain. But does have dyspnea on exertion. Is having chest wall discomfort. He is not having syncope. Gastrointestinal:Denies nausea, vomiting, , constipation, hematemesis, melena, hematochezia. Musculoskeletal: denies significant myalgias or arthralgias. No new joint swelling. Denies new back pain. Skin: Denies new rash or lesions. No new ulcers or wounds are related.. Neuro: Denies headache or visual change. Denies any new onset weakness or difficulty with ambulation. Denies falls or seizures. Psychiatric:Denies anxiety or depression. Endocrine: Severe fatigue and has been having some mild weight loss. Past Medical History Past Medical History: Coronary Artery Disease (CAD), Cancer, Hyperlipidemia, Hypertension, Musculoskeletal Disorder, Sleep Apnea/CPAP/BIPAP Additional Past Medical History / Comment(s): Pt recently admitted to [facility] with infected sternal wound/leg blisters post CABG. He currently has a packed wound on his sternum. 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 History of Any Multi-Drug Resistant Organisms: None Reported Past Surgical History: Cholecystectomy, Coronary Bypass/CABG, Heart Catheterization, Joint Replacement, Tonsillectomy Additional Past Surgical History / Comment(s): PICC line insertion/removed, bilateral caract removals, COLONOSCOPY, EGD, CANCEROUS SKIN LESIONS REMOVED, TOTAL RIGHT KNEE REPLACEMENT, 06-04-16 QUAD BYPASS Past Anesthesia/Blood Transfusion Reactions: Previous Problems w/ Anesthesia Additional Past Anesthesia/Blood Transfusion Reaction / Comm: HAD A HARD TIME COMING OUT OF ANESTHESIA AFTER CHOLECYSTECTOMY Past Psychological History: No Psychological Hx Reported Additional Psychological History / Comment(s): Pt had CABG 06/04/16 and went to [facility] for rehab. He completed rehab and came home. Spouse states he then developed a sternal wound infection/blisters on legs and went back into [facility] and was discharged to [facility] again. He has again returned home. He was ambulating without device. His spouse was driving him to [employer]. 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 Was in the [employer] and was in the [employer] [place]. No illnesses when he was there. No animal exposures. There is no family home with his . No extensive travels. Tobacco smoking stopped in 1988. No significant alcohol use Smoking Status: Former smoker Past Alcohol Use History: Occasional Additional Past Alcohol Use History / Comment(s): Pt quit smoking in 1988 Past Drug Use History: None Reported - Past Family History Father Family Medical History: Vascular Disorder Additional Family Medical History / Comment(s): POOR CIRCULATION-HAD AMPUTATIONS D/T POOR CIRCULATION Mother Family Medical History: Cancer Medications and Allergies Home Medications and Allergies Comment(s): Laboratory Results WBC 13.1 k/uL (3.8-10.6) H 07/22/16 06:50 RBC 3.83 m/uL (4.30-5.90) L 07/22/16 06:50 Hgb 11.1 gm/dL (13.0-17.5) L 07/22/16 06:50 Hct 36.7 % (39.0-53.0) L 07/22/16 06:50 MCV 95.8 fL (80.0-100.0) 07/22/16 06:50 MCH 29.1 pg (25.0-35.0) 07/22/16 06:50 MCHC 30.4 g/dL (31.0-37.0) L 07/22/16 06:50 RDW 14.4 % (11.5-15.5) 07/22/16 06:50 Plt Count 481 k/uL (150-450) H 07/22/16 06:50 Neutrophils % (Manual) 86.0 % 07/22/16 06:50 Band Neutrophils % 7.0 % 07/22/16 06:50 Lymphocytes % (Manual) 3.0 % 07/22/16 06:50 Monocytes % (Manual) 3.0 % 07/22/16 06:50 Eosinophils % (Manual) 1.0 % 07/22/16 06:50 Neutrophils # (Manual) 12.2 k/uL (1.3-7.7) H 07/22/16 06:50 Lymphocytes # (Manual) 0.4 k/uL (1.0-4.8) L 07/22/16 06:50 Monocytes # (Manual) 0.4 k/uL (0-1.0) 07/22/16 06:50 Eosinophils # (Manual) 0.1 k/uL (0-0.7) 07/22/16 06:50 Nucleated RBCs 0 /100 WBC (0-0) 07/22/16 06:50 Manual Slide Review Performed 07/22/16 06:50 Hypochromasia Moderate 07/22/16 06:50 Poikilocytosis Slight 07/22/16 06:50 PT 10.7 sec (9.0-12.0) 07/22/16 06:50 INR 1.1 (<1.1) 07/22/16 06:50 APTT 20.8 sec (22.0-30.0) L 07/22/16 06:50 Sodium 143 mmol/L (137-145) 07/22/16 06:50 Potassium 4.2 mmol/L (3.5-5.1) 07/22/16 06:50 Chloride 96 mmol/L (98-107) L 07/22/16 06:50 Carbon Dioxide 29 mmol/L (22-30) 07/22/16 06:50 Anion Gap 18 mmol/L 07/22/16 06:50 BUN 21 mg/dL (9-20) H 07/22/16 06:50 Creatinine 1.43 mg/dL (0.66-1.25) H 07/22/16 06:50 Est GFR (MDRD) Af Amer 59 (>60 ml/min/1.73 sqM) 07/22/16 06:50 Est GFR (MDRD) Non-Af 48 (>60 ml/min/1.73 sqM) 07/22/16 06:50 Glucose 142 mg/dL (74-99) H 07/22/16 06:50 Plasma Lactic Acid Paul 1.3 mmol/L (0.7-2.0) 07/22/16 11:45 Calcium 9.4 mg/dL (8.4-10.2) 07/22/16 06:50 Total Bilirubin 0.9 mg/dL (0.2-1.3) 07/22/16 06:50 AST 38 U/L (17-59) 07/22/16 06:50 ALT 30 U/L (21-72) 07/22/16 06:50 Alkaline Phosphatase 75 U/L (38-126) 07/22/16 06:50 Total Creatine Kinase 132 U/L (55-170) 07/22/16 06:50 CK-MB (CK-2) 1.5 ng/mL (0.0-2.4) 07/22/16 06:50 CK-MB (CK-2) Rel Index 1.1 07/22/16 06:50 Troponin I 0.027 ng/mL (0.000-0.034) 07/22/16 06:50 Total Protein 7.4 g/dL (6.3-8.2) 07/22/16 06:50 Albumin 4.2 g/dL (3.5-5.0) 07/22/16 06:50 Cortisol 27 ug/dL 07/22/16 06:50 Influenza Type A RNA Not Detected (Not Detectd) 07/22/16 10:29 Influenza Type B (PCR) Not Detected (Not Detectd) 07/22/16 10:29 Home Medications Medication Instructions Recorded Confirmed Type Furosemide [Lasix] 40 mg PO DAILY 06/19/16 07/22/16 History Ipratropium-Albuterol Nebulize 3 ml INHALATION RT-TID 06/19/16 07/22/16 History [Duoneb 0.5 mg-3 mg/3 ml Soln] Pantoprazole [Protonix] 40 mg PO DAILY 06/19/16 07/22/16 History Sennosides-Docusate Sodium 2 tab PO HS 06/19/16 07/22/16 History [Senokot-S] metFORMIN HCL [Glucophage] 500 mg PO BID 06/19/16 07/22/16 History ALPRAZolam [Xanax] 0.25 mg PO TID 07/21/16 07/22/16 History Aspirin 325 mg PO HS 07/21/16 07/22/16 History Atorvastatin [Lipitor] 40 mg PO HS 07/21/16 07/22/16 History Cholecalciferol [Vitamin D3] 1,000 unit PO HS 07/21/16 07/22/16 History amLODIPine [Norvasc] 5 mg PO DAILY 07/21/16 07/22/16 History Allopurinol [Zyloprim] 150 mg PO DAILY 07/22/16 07/22/16 History Melatonin 1 mg PO HS 07/22/16 07/22/16 History Psyllium Husk 100% [Metamucil] 6 gm PO DAILY 07/22/16 07/22/16 History Allergies Allergy/AdvReac Type Severity Reaction Status Date / Time No Known Allergies Allergy Verified 07/22/16 08:22 Physical Exam Vitals: Vital Signs Temp Pulse Pulse Resp BP BP Pulse Ox 07/22/16 16:00 97.4 F L 83 18 142/67 95 07/22/16 15:00 79 16 127/55 100 07/22/16 13:45 98.1 F 86 16 151/67 07/22/16 12:57 83 18 125/59 97 07/22/16 11:27 90 18 155/70 94 L Intake and Output 07/22/16 07/22/16 07/22/16 06:59 14:59 22:59 Output Total 0 Balance 0 Output: Urine 0 Other: Voiding Method Urinal Pleasant superobese 76-year-old male who is supine in bed. Relates that he's feeling somewhat poorly but better than last night. HEENT: Anicteric conjunctiva are pink and moist nasal mucosa grossly intact without significant lesions, there is dry oral mucosa without thrush. Poor dentition Neck: The neck is supple without significant lymphadenopathy or thyromegaly. Lungs: Symmetrical air entry is noted. There are crackles in the left base. Few expiratory wheezes are noted. No lanie bronchial sounds are noted. Heart: Regular with an audible S1 and S2 soft S4 no distinct murmur click or rub is noted. PMI was not palpable Abdomen: Obese Positive bowel sounds soft and nontender without palpable masses or organomegaly. There was no guarding or rebound. Extremities: The upper extremities have excellent pulses they are symmetric, no significant petechiae or telangiectasia. No splinter hemorrhages were noted. PICC line is applied to the left arm. Does have complaint of some pain upon range of motion to the left shoulder. The bilateral extremities evidence of the chronic edema from his venous stasis. However improved from the last evaluation. There however free dry. Prior surgical wounds are all healed at this time. There is no open ulcerations or drainage. The peripheral pulses are 2+ and symmetric bilaterally. Neuro: Awake alert oriented to person place and time. There are no acute new gross focal sensory motor deficits. Results CBC & Chem 7: 07/22/16 06:50 07/22/16 06:50 Labs: Laboratory Results WBC 13.1 k/uL (3.8-10.6) H 07/22/16 06:50 RBC 3.83 m/uL (4.30-5.90) L 07/22/16 06:50 Hgb 11.1 gm/dL (13.0-17.5) L 07/22/16 06:50 Hct 36.7 % (39.0-53.0) L 07/22/16 06:50 MCV 95.8 fL (80.0-100.0) 07/22/16 06:50 MCH 29.1 pg (25.0-35.0) 07/22/16 06:50 MCHC 30.4 g/dL (31.0-37.0) L 07/22/16 06:50 RDW 14.4 % (11.5-15.5) 07/22/16 06:50 Plt Count 481 k/uL (150-450) H 07/22/16 06:50 Neutrophils % (Manual) 86.0 % 07/22/16 06:50 Band Neutrophils % 7.0 % 07/22/16 06:50 Lymphocytes % (Manual) 3.0 % 07/22/16 06:50 Monocytes % (Manual) 3.0 % 07/22/16 06:50 Eosinophils % (Manual) 1.0 % 07/22/16 06:50 Neutrophils # (Manual) 12.2 k/uL (1.3-7.7) H 07/22/16 06:50 Lymphocytes # (Manual) 0.4 k/uL (1.0-4.8) L 07/22/16 06:50 Monocytes # (Manual) 0.4 k/uL (0-1.0) 07/22/16 06:50 Eosinophils # (Manual) 0.1 k/uL (0-0.7) 07/22/16 06:50 Nucleated RBCs 0 /100 WBC (0-0) 07/22/16 06:50 Manual Slide Review Performed 07/22/16 06:50 Hypochromasia Moderate 07/22/16 06:50 Poikilocytosis Slight 07/22/16 06:50 PT 10.7 sec (9.0-12.0) 07/22/16 06:50 INR 1.1 (<1.1) 07/22/16 06:50 APTT 20.8 sec (22.0-30.0) L 07/22/16 06:50 Sodium 143 mmol/L (137-145) 07/22/16 06:50 Potassium 4.2 mmol/L (3.5-5.1) 07/22/16 06:50 Chloride 96 mmol/L (98-107) L 07/22/16 06:50 Carbon Dioxide 29 mmol/L (22-30) 07/22/16 06:50 Anion Gap 18 mmol/L 07/22/16 06:50 BUN 21 mg/dL (9-20) H 07/22/16 06:50 Creatinine 1.43 mg/dL (0.66-1.25) H 07/22/16 06:50 Est GFR (MDRD) Af Amer 59 (>60 ml/min/1.73 sqM) 07/22/16 06:50 Est GFR (MDRD) Non-Af 48 (>60 ml/min/1.73 sqM) 07/22/16 06:50 Glucose 142 mg/dL (74-99) H 07/22/16 06:50 Plasma Lactic Acid Paul 1.3 mmol/L (0.7-2.0) 07/22/16 11:45 Calcium 9.4 mg/dL (8.4-10.2) 07/22/16 06:50 Total Bilirubin 0.9 mg/dL (0.2-1.3) 07/22/16 06:50 AST 38 U/L (17-59) 07/22/16 06:50 ALT 30 U/L (21-72) 07/22/16 06:50 Alkaline Phosphatase 75 U/L (38-126) 07/22/16 06:50 Total Creatine Kinase 132 U/L (55-170) 07/22/16 06:50 CK-MB (CK-2) 1.5 ng/mL (0.0-2.4) 07/22/16 06:50 CK-MB (CK-2) Rel Index 1.1 07/22/16 06:50 Troponin I 0.027 ng/mL (0.000-0.034) 07/22/16 06:50 Total Protein 7.4 g/dL (6.3-8.2) 07/22/16 06:50 Albumin 4.2 g/dL (3.5-5.0) 07/22/16 06:50 Cortisol 27 ug/dL 07/22/16 06:50 Influenza Type A RNA Not Detected (Not Detectd) 07/22/16 10:29 Influenza Type B (PCR) Not Detected (Not Detectd) 07/22/16 10:29 Assessment and Plan (1) Sepsis Narrative/Plan: 76-year-old male presented to Hospital from home with a 48 hour history of feeling poorly. He presented emergency center and thought maybe he had a urinary tract infection. Was initiated to some oral antibiotic therapy. However the following hours continue to worsen. He became weak and was having worsening diarrhea was having difficulties trying to navigate the home. Apparently his brought him to Hospital via EMS. At presentation there was evidence of sepsis with a elevation of his leukocytosis as well as elevated lactic acid. he is responding well to fluid resuscitation. He is having some diarrhea and that is of concern and a C. difficile toxin been requested. He seems responded to fluid resuscitation. The lactic acidosis is improved. There is a concern to urinary tract infection as etiology for sepsis. Blood cultures are process. Urine cultures in process. He also has a difficulty with the erythema to the bilateral lower extremities. He constantly vancomycin therapy was initiated and also ceftriaxone is being started the possibility of a urinary tract infection. Will be monitored has cultures become available. Local wound care will be applied to the sternal wound with the Aquacel silver rope. Aquaphor to the bilateral lower extremities are wrapped. The to injury to the right foot topical mupirocin and Band-Aid is added. Status: Acute (2) UTI (urinary tract infection) Status: Acute (3) Leukocytosis Status: Acute (4) Elevated lactic acid level Status: Acute
[2016-07-22] MEDS: PETROLATUM, WHITE OINT 50 GM TUBE TOPICAL SCH (20:43)
[2016-07-22] MEDS: MUPIROCIN 2% OINT 22 GM TUBE TOPICAL SCH (20:43)
[2016-07-22] MEDS: METOPROLOL TARTRATE 50 MG TAB PO SCH (22:33)
[2016-07-22] MEDS: ALPRAZolam 0.25 MG TAB PO SCH (22:33)
[2016-07-22] MEDS: SENNOSIDES-DOCUSATE SODIUM 1 EACH TAB PO SCH (22:34)
[2016-07-22] MEDS: PSYLLIUM HUSK 100% 6 GM PACKET PO SCH (22:34)
[2016-07-23] MEDS: HYDROcodone/APAP 5-325MG 1 EACH TAB PO PRN ×2 (00:10→20:32)
[2016-07-23] MEDS: VANCOMYCIN 1,750 MG in SODIUM CHLORIDE 0.9% 250 ML IVPB SCH (05:55)
--- NOTE | 2016-07-23 06:21 | HP ---
DATE OF ADMISSION: 07/22/2016 PRESENTING COMPLAINT: Weak and tired. HISTORY OF PRESENTING COMPLAINT: This is a very pleasant 76-year-old patient known to me from prior admissions. Patient was here in the hospital also from 06/19/16 to 06/26/16. Patient recently has had a coronary artery bypass and was admitted on last admission with infection of the bypass wound. Cultures were positive for Acinetobacter baumannii and patient was discharged on ciprofloxacin 500 mg p.o. b.i.d. for 28 tablets the last tablet being yesterday. Other chronic stable medical conditions include coronary artery disease, hyperlipidemia, hypertension, sleep apnea, osteoarthritis. The patient over the last ( ) feeling very weak and tired, decreased oral intake. Did have 2 large bowel movements in the night. Denies any fever or any abdominal pain. Just run down. Decreased appetite. REVIEW OF SYSTEMS: CONSTITUTIONAL: Tired. HEENT: None. RESPIRATORY: Some shortness of breath. CARDIOVASCULAR: None. GASTROINTESTINAL: None. GENITOURINARY: None. MUSCULOSKELETAL: None. DERMATOLOGICAL: No more drainage from the incisional sternal wound site. LYMPHATICS: None. PSYCHIATRY: Feels a bit low. NEUROLOGICAL: None. Past medical history of hyperlipidemia, hypertension, sleep apnea, skin cancer, gout, osteoarthritis, diverticular disease, coronary artery disease. PAST SURGICAL HISTORY: Cholecystectomy, colonoscopy, EGD, right total knee replacement, coronary artery bypass. SOCIAL HISTORY: Smoked about a pack for about 25 years; stopped about 30 years ago. . 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 Family history of cancer. ALLERGIES: None. HOME MEDICATIONS: 1. Glucophage 500 mg p.o. b.i.d. 2. Norvasc 5 mg p.o. daily. 3. Senokot-S 2 tablets p.o. q.h.s. 4. Metamucil 6 grams p.o. daily. 5. Protonix 40 mg p.o. daily. 6. Lopressor 150 mg p.o. b.i.d. 7. Melatonin 1 mg p.o. q.h.s. 8. DuoNeb t.i.d. 9. Fairburn 5 one tablet q.4 p.r.n. 10. Lasix 40 mg p.o. daily. 11. Plavix 75 mg p.o. daily. 12. Vitamin D3, 1000 units p.o. q.h.s. 13. Lipitor 40 mg q.h.s. 14. Aspirin 325 p.o. q.h.s. 15. Allopurinol 150 mg p.o. daily. 16. Xanax 0.25 p.o. t.i.d. On examination, temperature 98.1, pulse 107, respirations 18, blood pressure 152/71, pulse ox 93% on 2 L. GENERAL APPEARANCE: Well built, BMI of 33.5. Lying in bed, very tired appearing. EYES: Pupils equal. Conjunctivae normal. HENT: Oral cavity normal. NECK: JVD unable to assess. Mass not palpable. RESPIRATORY: Effort increased. LUNGS: Diminished breath sounds. CARDIOVASCULAR: First and sounds normal. No edema. Boris wrap on the lower extremity. ABDOMEN: Soft, nontender. Liver and spleen not palpable. LYMPHATIC: No lymph nodes palpable in neck or axillae. PSYCHIATRY: Alert and oriented x3. Mood and affect slightly low-appearing. NEUROLOGICAL: Pupils equal. Cranial nerves grossly intact. Power and sensation grossly intact. INVESTIGATIONS: White count 13.1, hemoglobin 11.1, increased neutrophils. Potassium 4.2. BUN 21, creatinine 1.43. Lactic acid 2.3. ASSESSMENT: 1. This is a patient feeling extremely exhausted, weak, tired, rundown in a patient who just completed treatment for sternal wound infection with ciprofloxacin secondary to Acinetobacter baumannii. 2. Coronary artery disease with recent coronary artery bypass. 3. Morbid obesity, body mass index greater than ( ). 4. Hyperlipidemia, chronic. 5. Essential hypertension. 6. Chronic sleep apnea. 7. Primary osteoarthritis of multiple joints, bilateral. PLAN: Home medications are continued. Patient is put empirically on ceftriaxone and vancomycin. Care was discussed with the patient. Dr. Lala was consulted. Will follow.
[2016-07-23] MEDS: metFORMIN 500 MG TAB PO SCH ×2 (06:49→17:19)
[2016-07-23] MEDS: PANTOPRAZOLE 40 MG TABLET PO SCH (06:49)
[2016-07-23] MEDS ORDERED: LEVOFLOXACIN 750MG-D5W PMX 750 MG in DEXTROSE/WATER 1 150ML.BAG IVPB SCH (08:00)
[2016-07-23] MEDS: IPRATROPIUM-ALBUTEROL 3 ML NEB INHALATION SCH ×3 (08:41→20:15)
[2016-07-23] MEDS: MUPIROCIN 2% OINT 22 GM TUBE TOPICAL SCH (08:59)
[2016-07-23] MEDS ORDERED: FUROSEMIDE 40 MG TAB PO SCH (09:00)
--- NOTE | 2016-07-23 09:04 | XR ---
EXAMINATION TYPE: XR chest 2V DATE OF EXAM: 07/23/2016 8:26 AM COMPARISON: 06/24/2016 HISTORY: Shortness of breath FINDINGS: There are bilateral pleural effusions with cardiomegaly and bibasilar infiltrate. There is a diffuse interstitial pattern. Postoperative change and PICC line noted. Arthropathy of the shoulders. IMPRESSION: 1. Stable bilateral infiltrate and pleural effusion. Mild venous congestion not excluded.
[2016-07-23] MEDS: amLODIPine 5 MG TAB PO SCH (09:05)
[2016-07-23] MEDS: CLOPIDOGREL 75 MG TAB PO SCH (09:05)
[2016-07-23] MEDS: ALLOPURINOL 300 MG TAB PO SCH (09:05)
[2016-07-23] MEDS: METOPROLOL TARTRATE 50 MG TAB PO SCH ×2 (09:05→20:30)
[2016-07-23] MEDS: PSYLLIUM HUSK 100% 6 GM PACKET PO SCH (09:06)
[2016-07-23] MEDS: ALPRAZolam 0.25 MG TAB PO SCH ×3 (09:11→20:31)
[2016-07-23 09:12] LABS: Basophils # (A) 0.1 k/uL (0-0.2); Basophils % (A) 1 %; CH 30.2; CHCM 32.5; Eosinophils # (A) 0.5 k/uL (0-0.7); Eosinophils % (A) 5 %; HCT 33.4 % (39.0-53.0); HDW 4.11; HGB 10.7 gm/dL (13.0-17.5); Hypochromasia Slight; Luc # (Auto) 0.22; Luc % (Auto) 2; Lymphocytes # (A) 1.3 k/uL (1.0-4.8); Lymphocytes % (A) 12 %; MCH 29.7 pg (25.0-35.0); MCHC 31.9 g/dL (31.0-37.0); MCV 93.2 fL (80.0-100.0); Mean Platelet Volume 7.5; Monocytes # (A) 0.8 k/uL (0-1.0); Monocytes % (A) 7 %; Neutrophils # (A) 8.6 k/uL (1.3-7.7); Neutrophils % (A) 75 %; Poikilocytosis Moderate; RBC 3.59 m/uL (4.30-5.90); RDW 14.1 % (11.5-15.5); WBC 11.5 k/uL (3.8-10.6); WBC (Perox) 11.57
[2016-07-23 09:49] LABS: Anion Gap 15 mmol/L; Blood Urea Nitrogen 24 mg/dL (9-20); Calcium 9.7 mg/dL (8.4-10.2); Carbon Dioxide 31 mmol/L (22-30); Chloride 99 mmol/L (98-107); Glucose 133 mg/dL (74-99); Non-African American GFR(MDRD) 50 (>60 ml/min/1.73 sqM); Potassium 3.6 mmol/L (3.5-5.1); Sodium 145 mmol/L (137-145)
--- NOTE | 2016-07-23 12:29 | P.GSCN ---
History of Present Illness Consult date: 07/23/16 Reason for Consult: Patient known to us, status post quadruple coronary artery bypass grafting and sternal plating by Dr. Jacobs on 06/04/2016, dictated by superficial Acinetobacter sternal wound infection Requesting physician: Brannon Barcenas History of present illness: Patient is a 76 years old gentleman known to us status post quadruple coronary artery bypass grafting and sternal plating on 06/04/[address] Jacobs. Patient was readmitted early June with some drainage in the lower sternotomy aspect that grew Acinetobacter and was treated locally as it was superficial. Patient received IV antibiotics and was discharged on by mouth antibiotics that he just finished. Patient was readmitted for generalized weakness and diarrhea and near syncope. He denies fever or chills, chest pain. He overall had been feeling progressively better till this recent deterioration Past Medical History Past Medical History: Coronary Artery Disease (CAD), Cancer, Hyperlipidemia, Hypertension, Musculoskeletal Disorder, Sleep Apnea/CPAP/BIPAP Additional Past Medical History / Comment(s): Pt recently admitted to [facility] with infected sternal wound/leg blisters post CABG. He currently has a packed wound on his sternum. 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 History of Any Multi-Drug Resistant Organisms: None Reported Past Surgical History: Cholecystectomy, Coronary Bypass/CABG, Heart Catheterization, Joint Replacement, Tonsillectomy Additional Past Surgical History / Comment(s): PICC line insertion/removed, bilateral caract removals, COLONOSCOPY, EGD, CANCEROUS SKIN LESIONS REMOVED, TOTAL RIGHT KNEE REPLACEMENT, 06-04-16 QUAD BYPASS Past Anesthesia/Blood Transfusion Reactions: Previous Problems w/ Anesthesia Additional Past Anesthesia/Blood Transfusion Reaction / Comm: HAD A HARD TIME COMING OUT OF ANESTHESIA AFTER CHOLECYSTECTOMY Past Psychological History: No Psychological Hx Reported Additional Psychological History / Comment(s): Pt had CABG 06/04/16 and went to [facility] for rehab. He completed rehab and came home. Spouse states he then developed a sternal wound infection/blisters on legs and went back into [facility] and was discharged to [facility] again. He has again returned home. He was ambulating without device. His spouse was driving him to [place]. 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 No illnesses when he was there. No animal exposures. There is no family home with his . No extensive travels. Tobacco smoking stopped in 1988. No significant alcohol use Smoking Status: Former smoker Past Alcohol Use History: Occasional Additional Past Alcohol Use History / Comment(s): Pt quit smoking in 1988 Past Drug Use History: None Reported - Past Family History Father Family Medical History: Vascular Disorder Additional Family Medical History / Comment(s): POOR CIRCULATION-HAD AMPUTATIONS D/T POOR CIRCULATION Mother Family Medical History: Cancer Medications and Allergies Home Medications Medication Instructions Recorded Confirmed Type Furosemide [Lasix] 40 mg PO DAILY 06/19/16 07/22/16 History Ipratropium-Albuterol Nebulize 3 ml INHALATION RT-TID 06/19/16 07/22/16 History [Duoneb 0.5 mg-3 mg/3 ml Soln] Pantoprazole [Protonix] 40 mg PO DAILY 06/19/16 07/22/16 History Sennosides-Docusate Sodium 2 tab PO HS 06/19/16 07/22/16 History [Senokot-S] metFORMIN HCL [Glucophage] 500 mg PO BID 06/19/16 07/22/16 History ALPRAZolam [Xanax] 0.25 mg PO TID 07/21/16 07/22/16 History Aspirin 325 mg PO HS 07/21/16 07/22/16 History Atorvastatin [Lipitor] 40 mg PO HS 07/21/16 07/22/16 History Cholecalciferol [Vitamin D3] 1,000 unit PO 07/21/16 07/22/16 History amLODIPine [Norvasc] 5 mg PO DAILY 07/21/16 07/22/16 History Allopurinol [Zyloprim] 150 mg PO DAILY 07/22/16 07/22/16 History Melatonin 1 mg PO HS 07/22/16 07/22/16 History Psyllium Husk 100% [Metamucil] 6 gm PO DAILY 07/22/16 07/22/16 History Allergies Allergy/AdvReac Type Severity Reaction Status Date / Time No Known Allergies Allergy Verified 07/22/16 08:22 Surgical - Exam Vital Signs Temp Pulse Resp BP Pulse Ox 102 F H 117 H 20 178/75 93 L 07/22/16 05:46 07/22/16 05:46 07/22/16 05:46 07/22/16 05:46 07/22/16 05:46 - Genitourinary No scrotal edema - Rectum Deferred left stellate sternotomy incision is well-healed except for a very small opening in its distal aspect with scant bloody discharge. This no erythema. Sternum is solid stable. Patient has bilateral lower except edema with erythema and some blistering. Results - Labs 07/23/16 08:49 07/23/16 08:49 Abnormal Lab Results - Last 24 Hours (Table) 07/23/16 07/23/16 Range/Units 08:49 08:49 WBC 11.5 H (3.8-10.6) k/uL RBC 3.59 L (4.30-5.90) m/uL Hgb 10.7 L (13.0-17.5) gm/dL Hct 33.4 L (39.0-53.0) % Plt Count 477 H (150-450) k/uL Neutrophils # 8.6 H (1.3-7.7) k/uL Carbon Dioxide 31 H (22-30) mmol/L BUN 24 H (9-20) mg/dL Creatinine 1.40 H (0.66-1.25) mg/dL Glucose 133 H (74-99) mg/dL Microbiology - Last 24 Hours (Table) 07/22/16 23:15 Blood Culture Gram Stain - Preliminary Blood Diabetes panel 07/23/16 Range/Units 08:49 Sodium 145 (137-145) mmol/L Potassium 3.6 (3.5-5.1) mmol/L Chloride 99 (98-107) mmol/L Carbon Dioxide 31 H (22-30) mmol/L BUN 24 H (9-20) mg/dL Creatinine 1.40 H (0.66-1.25) mg/dL Glucose 133 H (74-99) mg/dL Calcium 9.7 (8.4-10.2) mg/dL Calcium panel 07/23/16 Range/Units 08:49 Calcium 9.7 (8.4-10.2) mg/dL Pituitary panel 07/23/16 Range/Units 08:49 Sodium 145 (137-145) mmol/L Potassium 3.6 (3.5-5.1) mmol/L Chloride 99 (98-107) mmol/L Carbon Dioxide 31 H (22-30) mmol/L BUN 24 H (9-20) mg/dL Creatinine 1.40 H (0.66-1.25) mg/dL Glucose 133 H (74-99) mg/dL Calcium 9.7 (8.4-10.2) mg/dL Adrenal panel 07/23/16 Range/Units 08:49 Sodium 145 (137-145) mmol/L Potassium 3.6 (3.5-5.1) mmol/L Chloride 99 (98-107) mmol/L Carbon Dioxide 31 H (22-30) mmol/L BUN 24 H (9-20) mg/dL Creatinine 1.40 H (0.66-1.25) mg/dL Glucose 133 H (74-99) mg/dL Calcium 9.7 (8.4-10.2) mg/dL Assessment and Plan Plan: 76 years old gentleman status post quadruple coronary artery bypass grafting and sternal plating, gated by superficial sternal wound infection. The sternum is solid stable and the drainage is scant. There are signs of fluid overload on top of his known's venous insufficiency. Continue local care. ID to decide regarding antibiotic therapy. Needs better afterload reduction. He would also benefit from wrapping both his lower extremities. Thank you for the privilege of this consult
[2016-07-23] MEDS: PETROLATUM, WHITE OINT 50 GM TUBE TOPICAL SCH (15:37)
--- NOTE | 2016-07-23 18:57 | P.PN ---
Subjective Principal diagnosis: Sepsis Pleasant 76-year-old male presented to Hospital originally on 2015. The point, he had chest pain and was having a 6 weeks timeframe of increasing shortness of breath. On the day of presentation he was outside doing yard work he develops to be in chest pain became clammy and was brought to hospital. It evidence of a non-ST myocardial infarction. Cardiac catheterization was performed evidence of severe coronary disease as well as left distal main thrombosis. He was then taken to the operating room and had a four-vessel coronary artery bypass grafting procedure his sternum required repair with a cable and plate system. He did go to [facility] rehab for rehabilitation after his stay because he was so weak. 3 days before his second admission on 06/19/2016 he was or any of some difficulty with the sternal wound. Is unable bit of drainage. As he was admitted and infectious disease consultation occurred. He had evidence of an Acientobacter infection at that site. It was treated with antibiotic therapy. Marked improvement and was discharged. Subsequently he is then brought to the home setting after his rehab stay. She'll relatively well until the last 48 hours. The patient's relates that the occupational therapist, the home and they noticed that he was unable to raise his left arm. He has been evaluated and likely has a tear to his left shoulder. Although this was noted the patient was started have increasing difficulties with not feeling well. He was becoming much more weak. He developed significant amounts of diarrhea but there is evidence of any melena or hematochezia. He became dehydrated and was brought back to the emergency room again today. He subsequently has been admitted is receiving fluids. There is concerns. The fever to 102 and there could be a urinary tract infection versus sepsis. His lactic acid was elevated. He is feeling definitely better today after fluids and antibiotic therapy. Would like to have a true recliner chair to sit and since he has such a bad back. IV access was a great difficulty and a PICC line has now been placed. Objective - Vital Signs Vital signs: Vital Signs Temp 98 F 07/23/16 15:36 Pulse 93 07/23/16 15:36 Resp 16 07/23/16 15:36 BP 178/75 07/23/16 15:36 Pulse Ox 93 L 07/23/16 15:36 Intake & Output 07/22/16 07/23/1607/23/17 18:59 06:59 18:59 Intake Total 100 720 Output Total 300 500 200 Balance -300 -400 520 Weight 141.4 kg Intake: Intake, IV Titration 100 Amount Sodium Chloride 0.9% 1, 100 000 ml @ 100 mls/hr IV . Q10H ONE Rx#:[id number] Oral 720 Output: Urine 0 500 200 Post Void Residual 300 Other: Voiding Method Urinal Urinal Urinal # Voids 1 - Exam Pleasant superobese 76-year-old male who is supine in bed. Relates that he's feeling somewhat poorly but better than last night. HEENT: Anicteric conjunctiva are pink and moist nasal mucosa grossly intact without significant lesions, there is dry oral mucosa without thrush. Poor dentition Neck: The neck is supple without significant lymphadenopathy or thyromegaly. Lungs: Symmetrical air entry is noted. There are crackles in the left base. Few expiratory wheezes are noted. No lanie bronchial sounds are noted. Heart: Regular with an audible S1 and S2 soft S4 no distinct murmur click or rub is noted. PMI was not palpable The sternal wound and the chest wall is small was repacked with the silver dressing yesterday, Hydrofera Blue was being used prior Abdomen: Obese Positive bowel sounds soft and nontender without palpable masses or organomegaly. There was no guarding or rebound. Extremities: The upper extremities have excellent pulses they are symmetric, no significant petechiae or telangiectasia. No splinter hemorrhages were noted. PICC line is applied to the left arm. Does have complaint of some pain upon range of motion to the left shoulder. The bilateral extremities evidence of the chronic edema from his venous stasis. However improved from the last evaluation. There however free dry. Prior surgical wounds are all healed at this time. There is no open ulcerations or drainage. The peripheral pulses are 2+ and symmetric bilaterally. Neuro: Awake alert oriented to person place and time. There are no acute new gross focal sensory motor deficits. - Labs CBC & Chem 7: 07/23/16 08:49 07/23/16 08:49 Labs: Abnormal Lab Results - Last 24 Hours (Table) 07/23/16 07/23/16 Range/Units 08:49 08:49 WBC 11.5 H (3.8-10.6) k/uL RBC 3.59 L (4.30-5.90) m/uL Hgb 10.7 L (13.0-17.5) gm/dL Hct 33.4 L (39.0-53.0) % Plt Count 477 H (150-450) k/uL Neutrophils # 8.6 H (1.3-7.7) k/uL Carbon Dioxide 31 H (22-30) mmol/L BUN 24 H (9-20) mg/dL Creatinine 1.40 H (0.66-1.25) mg/dL Glucose 133 H (74-99) mg/dL Microbiology - Last 24 Hours (Table) 07/22/16 22:25 Urine Culture - Preliminary Urine,Voided 07/22/16 23:15 Blood Culture Gram Stain - Preliminary Blood Laboratory Results WBC 11.5 k/uL (3.8-10.6) H 07/23/16 08:49 RBC 3.59 m/uL (4.30-5.90) L 07/23/16 08:49 Hgb 10.7 gm/dL (13.0-17.5) L 07/23/16 08:49 Hct 33.4 % (39.0-53.0) L 07/23/16 08:49 MCV 93.2 fL (80.0-100.0) 07/23/16 08:49 MCH 29.7 pg (25.0-35.0) 07/23/16 08:49 MCHC 31.9 g/dL (31.0-37.0) 07/23/16 08:49 RDW 14.1 % (11.5-15.5) 07/23/16 08:49 Plt Count 477 k/uL (150-450) H 07/23/16 08:49 Neutrophils % 75 % 07/23/16 08:49 Neutrophils % (Manual) 86.0 % 07/22/16 06:50 Band Neutrophils % 7.0 % 07/22/16 06:50 Lymphocytes % 12 % 07/23/16 08:49 Lymphocytes % (Manual) 3.0 % 07/22/16 06:50 Monocytes % 7 % 07/23/16 08:49 Monocytes % (Manual) 3.0 % 07/22/16 06:50 Eosinophils % 5 % 07/23/16 08:49 Eosinophils % (Manual) 1.0 % 07/22/16 06:50 Basophils % 1 % 07/23/16 08:49 Neutrophils # 8.6 k/uL (1.3-7.7) H 07/23/16 08:49 Neutrophils # (Manual) 12.2 k/uL (1.3-7.7) H 07/22/16 06:50 Lymphocytes # 1.3 k/uL (1.0-4.8) 07/23/16 08:49 Lymphocytes # (Manual) 0.4 k/uL (1.0-4.8) L 07/22/16 06:50 Monocytes # 0.8 k/uL (0-1.0) 07/23/16 08:49 Monocytes # (Manual) 0.4 k/uL (0-1.0) 07/22/16 06:50 Eosinophils # 0.5 k/uL (0-0.7) 07/23/16 08:49 Eosinophils # (Manual) 0.1 k/uL (0-0.7) 07/22/16 06:50 Basophils # 0.1 k/uL (0-0.2) 07/23/16 08:49 Nucleated RBCs 0 /100 WBC (0-0) 07/22/16 06:50 Manual Slide Review Performed 07/22/16 06:50 Hypochromasia Slight 07/23/16 08:49 Poikilocytosis Moderate 07/23/16 08:49 PT 10.7 sec (9.0-12.0) 07/22/16 06:50 INR 1.1 (<1.1) 07/22/16 06:50 APTT 20.8 sec (22.0-30.0) L 07/22/16 06:50 Sodium 145 mmol/L (137-145) 07/23/16 08:49 Potassium 3.6 mmol/L (3.5-5.1) 07/23/16 08:49 Chloride 99 mmol/L (98-107) 07/23/16 08:49 Carbon Dioxide 31 mmol/L (22-30) H 07/23/16 08:49 Anion Gap 15 mmol/L 07/23/16 08:49 BUN 24 mg/dL (9-20) H 07/23/16 08:49 Creatinine 1.40 mg/dL (0.66-1.25) H 07/23/16 08:49 Est GFR (MDRD) Af Amer >60 (>60 ml/min/1.73 sqM) 07/23/16 08:49 Est GFR (MDRD) Non-Af 50 (>60 ml/min/1.73 sqM) 07/23/16 08:49 Glucose 133 mg/dL (74-99) H 07/23/16 08:49 Plasma Lactic Acid Paul 1.3 mmol/L (0.7-2.0) 07/22/16 11:45 Calcium 9.7 mg/dL (8.4-10.2) 07/23/16 08:49 Total Bilirubin 0.9 mg/dL (0.2-1.3) 07/22/16 06:50 AST 38 U/L (17-59) 07/22/16 06:50 ALT 30 U/L (21-72) 07/22/16 06:50 Alkaline Phosphatase 75 U/L (38-126) 07/22/16 06:50 Total Creatine Kinase 132 U/L (55-170) 07/22/16 06:50 CK-MB (CK-2) 1.5 ng/mL (0.0-2.4) 07/22/16 06:50 CK-MB (CK-2) Rel Index 1.1 07/22/16 06:50 Troponin I 0.027 ng/mL (0.000-0.034) 07/22/16 06:50 Total Protein 7.4 g/dL (6.3-8.2) 07/22/16 06:50 Albumin 4.2 g/dL (3.5-5.0) 07/22/16 06:50 Cortisol 27 ug/dL 07/22/16 06:50 Influenza Type A RNA Not Detected (Not Detectd) 07/22/16 10:29 Influenza Type B (PCR) Not Detected (Not Detectd) 07/22/16 10:29 Microbiology 07/22/16 22:25 Urine,Voided Urine Culture - Preliminary 07/22/16 23:15 Blood Blood Culture Gram Stain - Preliminary 07/22/16 06:50 Blood Blood Culture - Preliminary No Growth after 24 hours Assessment and Plan (1) Sepsis Narrative/Plan: 76-year-old male presented to Hospital from home with a 48 hour history of feeling poorly. He presented emergency center and thought maybe he had a urinary tract infection. Was initiated to some oral antibiotic therapy. However the following hours continue to worsen. He became weak and was having worsening diarrhea was having difficulties trying to navigate the home. Apparently his brought him to Hospital via EMS. At presentation there was evidence of sepsis with a elevation of his leukocytosis as well as elevated lactic acid. he is responding well to fluid resuscitation. He is having some diarrhea and that is of concern and a C. difficile toxin been requested. He seems responded to fluid resuscitation. The lactic acidosis is improved. There is a concern to urinary tract infection as etiology for sepsis. Blood cultures are process. Urine cultures in process. He also has a difficulty with the erythema to the bilateral lower extremities. Consequently vancomycin therapy was initiated and also ceftriaxone is being started the possibility of a urinary tract infection. There is evidence of the positive culture with gram-positive cocci in the blood. Follow blood cultures have been requested. Await final results were plans for discharge. Local wound care will be applied to the sternal wound with the Aquacel silver rope. Aquaphor to the bilateral lower extremities are wrapped. The to injury to the right foot topical mupirocin and Band-Aid is added. Status: Acute (2) UTI (urinary tract infection) Status: Acute (3) Leukocytosis Status: Acute (4) Elevated lactic acid level Status: Acute
[2016-07-23] MEDS: ASPIRIN 325 MG TAB PO SCH (20:30)
[2016-07-23] MEDS: CHOLECALCIFEROL 1,000 UNIT TAB PO SCH (20:30)
[2016-07-23] MEDS: MELATONIN 1 MG TAB PO SCH (20:30)
[2016-07-23] MEDS: ATORVASTATIN 40 MG TAB PO SCH (20:30)
[2016-07-23] MEDS: SENNOSIDES-DOCUSATE SODIUM 1 EACH TAB PO SCH (20:33)
[2016-07-24] MEDS: PANTOPRAZOLE 40 MG TABLET PO SCH (06:28)
[2016-07-24] MEDS: metFORMIN 500 MG TAB PO SCH ×2 (06:28→17:17)
[2016-07-24] MEDS: VANCOMYCIN 1,750 MG in SODIUM CHLORIDE 0.9% 250 ML IVPB SCH (06:37)
--- NOTE | 2016-07-24 07:42 | PN ---
DATE OF SERVICE: 07/23/2016 PRESENTING COMPLAINT: Weak and tired. INTERVAL HISTORY: This patient was seen by me yesterday on 07/23/16. I had a very lengthy talk with the patient's at the bedside. She says since the patient has been home he has been very lethargic, hardly walks, appetite has gone down. The patient had one visit to the ER and then gone back home and then again had a bout of diarrhea a few times. Initial presentation to the ER the one before this admission resulted in a positive UA for which patient is on IV ceftriaxone. Patient also recently had cultures positive for Acinetobacter baumannii from the sternal wound site, which has actually healed nicely. Patient's oral intake has been low. The patient does complain of chills at home. Review of systems is done for constitutional, cardiovascular, GI, pulmonary; relevant findings as above. Also, the patient admits to being depressed. Current medications are reviewed that include IV ceftriaxone and vancomycin. On examination, temperature 97.4, pulse 103, respiration 20, blood pressure 146/67, pulse ox 91% on 2 L. GENERAL APPEARANCE: Sitting up on a chair, lethargic, but arousable. EYES: Pupils equal. Conjunctivae normal. NECK: JVD unable to assess. Mass not palpable. RESPIRATORY: Effort normal. LUNGS: Diminished breath sounds. CARDIOVASCULAR: Heart sounds muffled. ABDOMEN: Distended, soft. Liver and spleen not palpable. PSYCHIATRY: Depressed appearing, answering questions. INVESTIGATIONS: White count 11.5, hemoglobin 10.7. BUN 24, creatinine 1.4. Lactic acid has come down to 1.3. Urine culture has been negative from 07/21/16. ASSESSMENT: 1. Acute urinary tract infection with sepsis, present on admission. 2. Coronary artery disease with recent coronary artery bypass. 3. Morbid obesity, body mass index greater than 40. 4. Hyperlipidemia, chronic. 5. Essential hypertension. 6. Chronic sleep apnea. 7. Primary osteoarthritis of multiple joints, bilateral. 8. Possible significant depression. PLAN: I had a lengthy talk with the patient's . At this point, we will continue with ceftriaxone. Dr. Lala is on the case. Lactic acidosis has improved. Will get a psychiatry consultation. Other medication and treatment plan is to continue. Will keep a close eye on patient's blood pressure. Repeat labs. Also initially noted that one set of blood cultures from 07/22/16 is growing staph aureus.
[2016-07-24] MEDS: IPRATROPIUM-ALBUTEROL 3 ML NEB INHALATION SCH ×3 (08:32→21:14)
--- NOTE | 2016-07-24 08:33 | P.PN ---
Progress Note - Text CV Surgery Nursing Patient sleeping, awakens with some difficulty, no distress noted, no specific complaints. Vital Signs: Afebrile, T-max 97.6F Vital Signs - 24 hr 07/23/16 07/23/16 07/23/16 08:57 09:00 09:10 Temperature 97.4 F L Pulse Rate 84 100 Pulse Rate [ 103 H Pulse Oximetery ] Respiratory 20 Rate Blood Pressure 176/74 [Left Arm] O2 Sat by Pulse 85 L Oximetry 07/23/16 07/23/16 07/23/16 12:00 13:10 15:36 Temperature 97.5 F L 98 F Pulse Rate Pulse Rate [ 76 72 93 Pulse Oximetery ] Respiratory 16 16 Rate Blood Pressure 146/67 109/55 178/75 [Left Arm] O2 Sat by Pulse 91 L 93 L 93 L Oximetry 07/23/16 07/23/16 07/24/16 20:00 20:16 00:00 Temperature 97.3 F L 97.1 F L Pulse Rate 100 Pulse Rate [ 98 78 Pulse Oximetery ] Respiratory 18 18 Rate Blood Pressure 179/77 144/66 [Left Arm] O2 Sat by Pulse 94 L 94 L Oximetry 07/24/16 04:00 Temperature 97.6 F Pulse Rate Pulse Rate [ 79 Pulse Oximetery ] Respiratory 18 Rate Blood Pressure 140/63 [Left Arm] O2 Sat by Pulse 96 Oximetry Labs: Short CBC 07/23/16 Range/Units 08:49 WBC 11.5 H (3.8-10.6) k/uL Hgb 10.7 L (13.0-17.5) gm/dL Hct 33.4 L (39.0-53.0) % Plt Count 477 H (150-450) k/uL Neutrophils # 8.6 H (1.3-7.7) k/uL BMP 07/23/16 08:49 Sodium 145 Potassium 3.6 Chloride 99 Carbon Dioxide 31 H BUN 24 H Creatinine 1.40 H Glucose 133 H Calcium 9.7 labs today pending Lungs: Respirations are even and nonlabored, breath sounds diminished bilaterally O2 sat: 96% on 3 L of oxygen delivered via nasal cannula Heart: S1S2, regular rate and rhythm, portable telemetry shows a normal sinus rhythm to sinus tachycardia without ectopy. Sternum: stable, chest incision was small open area at the inferior end of the incision, dressing soaked with serous fluid. Abdomen: Soft, Positive bowel sounds present in all 4 quadrants. U/O: Adequate Intake & Output 07/22/16 07/23/16 07/24/16 07/25/16 06:59 06:59 06:59 06:59 Intake Total 100 720 180 Output Total 800 680 Balance -700 40 180 Weight 108.862 kg 141.4 kg 142.2 kg Active Medications Acetaminophen/Hydrocodone Bitart (Barton 5-325) 1 each PO Q4HR PRN PRN Reason: Pain Last Admin: 07/23/16 20:32 Dose: 1 each Albuterol/Ipratropium (Duoneb 0.5 Mg-3 Mg/3 Ml Soln) 3 ml INHALATION RT-TID [facility] Last Admin: 07/23/16 20:15 Dose: 3 ml Allopurinol (Zyloprim) 150 mg PO DAILY [facility] Last Admin: 07/23/16 09:05 Dose: 150 mg Amlodipine Besylate (Norvasc) 5 mg PO DAILY [facility] Last Admin: 07/23/16 09:05 Dose: 5 mg Aspirin (Aspirin) 325 mg PO HS [facility] Last Admin: 07/23/16 20:30 Dose: 325 mg Atorvastatin Calcium (Lipitor) 40 mg PO HS [facility] Last Admin: 07/23/16 20:30 Dose: 40 mg Cholecalciferol (Vitamin D3) 1,000 unit PO HS [facility] Last Admin: 07/23/16 20:30 Dose: 1,000 unit Clopidogrel Bisulfate (Plavix) 75 mg PO DAILY [facility] Last Admin: 07/23/16 09:05 Dose: 75 mg Vancomycin HCl 1,750 mg/ (Sodium Chloride) 250 mls @ 125 mls/hr IVPB Q24H [facility] Last Admin: 07/24/16 06:37 Dose: 125 mls/hr Ceftriaxone Sodium 1,000 mg/ (Sodium Chloride) 50 mls @ 100 mls/hr IVPB Q24HR [facility] Last Admin: 07/23/16 09:04 Dose: 100 mls/hr Melatonin (Melatonin) 1 mg PO HS [facility] Last Admin: 07/23/16 20:30 Dose: 1 mg Metformin HCl (Glucophage) 500 mg PO BID-W/MEALS [facility] Last Admin: 07/24/16 06:28 Dose: 500 mg Metoprolol Tartrate (Lopressor) 150 mg PO BID [facility] Last Admin: 07/23/16 20:30 Dose: 150 mg Mupirocin (Bactroban Oint) 1 applic TOPICAL DAILY [facility] Last Admin: 07/23/16 08:59 Dose: Not Given Pantoprazole Sodium (Protonix) 40 mg PO AC-BRKFST [facility] Last Admin: 07/24/16 06:28 Dose: 40 mg Petrolatum (Aquaphor) 1 applic TOPICAL DAILY [facility] Last Admin: 07/23/16 15:37 Dose: 1 applic Psyllium Hydrophilic Mucilloid (Metamucil) 6 gm PO DAILY [facility] Last Admin: 07/23/16 09:06 Dose: 6 gm Senna/Docusate Sodium (Senokot-S) 2 each PO HS [facility] Last Admin: 07/23/16 20:33 Dose: Not Given Sodium Chloride (Saline Flush) 20 ml IV Q4HR PRN PRN Reason: PICC Line Sodium Chloride (Saline Flush) 10 ml IV WEEKLY [facility] Sodium Chloride (Saline Flush) 10 ml IV Q4HR PRN PRN Reason: PICC Line Plan: Status post CABG with local superficial wound dehiscence. Shower daily, local wound care. Appreciate ID input. Monitor blood sugars
[2016-07-24 08:47] LABS: Anion Gap 15 mmol/L; Blood Urea Nitrogen 20 mg/dL (9-20); Calcium 8.9 mg/dL (8.4-10.2); Carbon Dioxide 28 mmol/L (22-30); Chloride 98 mmol/L (98-107); Glucose 124 mg/dL (74-99); Non-African American GFR(MDRD) 60 (>60 ml/min/1.73 sqM); Potassium 3.6 mmol/L (3.5-5.1); Sodium 141 mmol/L (137-145)
[2016-07-24 08:58] LABS: Basophils # (A) 0.1 k/uL (0-0.2); Basophils % (A) 1 %; CH 29.8; CHCM 30.5; Eosinophils # (A) 0.4 k/uL (0-0.7); Eosinophils % (A) 5 %; HCT 33.2 % (39.0-53.0); HDW 3.94; HGB 10.1 gm/dL (13.0-17.5); Hypochromasia Marked; Luc # (Auto) 0.13; Luc % (Auto) 2; Lymphocytes # (A) 1.3 k/uL (1.0-4.8); Lymphocytes % (A) 16 %; MCH 29.8 pg (25.0-35.0); MCHC 30.3 g/dL (31.0-37.0); Mean Platelet Volume 7.4; Monocytes # (A) 0.6 k/uL (0-1.0); Monocytes % (A) 8 %; Neutrophils # (A) 5.7 k/uL (1.3-7.7); Neutrophils % (A) 69 %; Poikilocytosis Slight; RBC 3.38 m/uL (4.30-5.90); WBC 8.2 k/uL (3.8-10.6); WBC (Perox) 8.41
[2016-07-24 08:59] LABS: MCV 98.4 fL (80.0-100.0)
[2016-07-24] MEDS: ALLOPURINOL 300 MG TAB PO SCH (09:19)
[2016-07-24] MEDS: CLOPIDOGREL 75 MG TAB PO SCH (09:20)
[2016-07-24] MEDS: METOPROLOL TARTRATE 50 MG TAB PO SCH ×2 (09:49→20:07)
[2016-07-24] MEDS: PSYLLIUM HUSK 100% 6 GM PACKET PO SCH (09:49)
[2016-07-24 12:00] LABS: Glucose,Whole Blood 130 mg/dL (75-99)
[2016-07-24] MEDS: MUPIROCIN 2% OINT 22 GM TUBE TOPICAL SCH (14:01)
[2016-07-24] MEDS: PETROLATUM, WHITE OINT 50 GM TUBE TOPICAL SCH (14:01)
[2016-07-24] MEDS: amLODIPine 5 MG TAB PO SCH (16:56)
--- NOTE | 2016-07-24 16:56 | P.CON ---
Psychiatric Consult - . Consult date: 07/24/16 Consult:: Mr. Lyn is 76-year-old male readmitted to medicines unit on 07/22/2016 with weakness, fatigue and decreased oral intake. His attending placed a psychiatry consult for evaluation of depression. He stated that he has been in the hospital "off and on" for about 45 days. He talked about incurring a heart attack, having bypass surgery, admission to a rehabilitation program, developing a infection of the bypass wound, readmission to the hospital for treatment of infection and returning to the rehabilitation program. He was "out of the rehabilitation program" for "6 or 7 days" when when he was rehospitalized. He stated he got up at night and had a episode of loss of control of his bowels. After his assisted him in cleaning himself he fell to the floor. He denied history of depression or prior mental health treatment. He denied feeling depressed prior to his physical disabilities. He stated that he feels depressed and admitted to some symptoms of depression such as decreased interest in some activities, decreased energy and decreased appetite. He denies anhedonia and talked pleasurably about his visits with family. He denied impairment in concentration or attention. He denied feeling hopeless, helpless or worthless. He denied thoughts of or suicide. His decreased energy and appetite developed over the last 2 months during his hospitalizations and rehabilitation episodes. He denied feeling anxious or having anxiety symptoms suggestive of panic attack. He denied experiencing obsessions or compulsions. He denied experiencing aberrations of perceptions suggestive of auditory, visual or tactile hallucinations. He denied experiencing a loss of control over her thoughts suggestive of psychotic symptoms. He describes rare use of alcohol and denied use of drugs to get high, help him sleep or changes mood. He denied prior episodes of depression. He denied episodes of elevated mood or sustained irritability consistent with devon or hypomania. He denied history of anxiety or panic attacks. Has been to his second for 27 years. He has 2 children from his first marriage and she brought 1 child to their marriage. 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 He described a close and supportive relationship with his and children. On mental status examination he presented as a casually groomed 76-year-old male with white hair and serrano. He was pleasant on approach, maintained eye contact and attended to the interview. He was sitting comfortably in a chair with his feet propped on the stool. He had no distinguishing features are prominent physical abnormalities. He had a depressed facial expression. He was alert and oriented to person, place and time. He had slight psychomotor retardation but no abnormal involuntary movements. His speech was spontaneous with normal rate, rhythm and volume. His affect was depressed but reactive. He denied suicidal thoughts or wishes. He denied depressive cognitions such as hopelessness, helplessness and worthlessness. He denied obsessions, ruminations and phobias. He denied ideas of reference and did not express paranoid ideation. His thinking was abstract and associations were coherent and logical. Global impression of intellect is average to above. We completed the [facility] Concentration test. His total weighted error score was 4; awaited error score greater than 10 is consistent with a dementia. He knew the month and the year. He was able to register the memory phrase "Yonathan Reyes, [address] [place] [address].". He guessed the correct time within 1 hour actual time. He was able to count backwards 20-1 and name the months of the year in reverse order beginning with June. He missed 2 elements of memory phrase. Impression: He is an elderly male with multiple and severe medical problems. He feels depressed from his medical problems and the impairment on his ability to care for himself. He has some symptoms of depression but does not meet criteria for major depressive disorder. There is no evidence of cognitive impairment or impairment of her ability to make sound medical and personal judgment. Recommendation: He does not require treatment with an antidepressant at this time. His outpatient physician should monitor his mental status and if he begins to express feelings of hopelessness, helplessness, has thoughts of suicide or suicide or withdraws from friends and families then consider a trial of an antidepressant. Thank you for this consult. 07/24/16 16:36
[2016-07-24 17:20] LABS: Glucose,Whole Blood 121 mg/dL (75-99)
[2016-07-24] MEDS: HYDROcodone/APAP 5-325MG 1 EACH TAB PO PRN (18:34)
[2016-07-24] MEDS: SENNOSIDES-DOCUSATE SODIUM 1 EACH TAB PO SCH (20:05)
[2016-07-24] MEDS: ASPIRIN 325 MG TAB PO SCH (20:06)
[2016-07-24] MEDS: CHOLECALCIFEROL 1,000 UNIT TAB PO SCH (20:06)
[2016-07-24] MEDS: ATORVASTATIN 40 MG TAB PO SCH (20:06)
[2016-07-24] MEDS: MELATONIN 1 MG TAB PO SCH (20:06)
[2016-07-24] MEDS: DICLOFENAC SODIUM GEL 100 GM TUBE TOPICAL SCH ×2 (20:08→23:17)
[2016-07-24 20:51] LABS: Glucose,Whole Blood 116 mg/dL (75-99)
--- NOTE | 2016-07-24 21:30 | PN ---
DATE OF SERVICE: 07/24/2016 INTERVAL HISTORY: This is a patient who presented with urinary tract infection. Also rather lethargic put Senna was discontinued. Patient is far more awake now. Patient has some pain in his left knee, which has known severe arthritis, deemed for surgery previously. ( ) had most of his breakfast. is quite happy with his progress diet. He is greatly improved. Review of systems done for constitutional, cardiovascular, GI, probably musculoskeletal; relevant findings as above. Current medications include IV ceftriaxone. On examination, temperature 96.4, pulse 78, respirations 16, blood pressure 120/58, pulse ox 98.3 liters. GENERAL APPEARANCE: Sitting up, awake, smiling. EYES: Pupils equal. Conjunctivae normal. Neck: JVD not raised. Mass not palpable. RESPIRATORY: Effort normal. LUNGS: Diminished breath sounds. CARDIOVASCULAR: Heart sounds muffled. Some edema. ABDOMEN: Soft, nontender. Liver and spleen not palpable. PSYCHIATRY: Alert and oriented x3. Mood and affect much improved. INVESTIGATIONS: White count 8.2, hemoglobin 10.1, BUN 20, creatinine 1.19. ASSESSMENT: 1. Acute urinary tract infection with sepsis, present on admission with clinical improvement. 2. Coronary artery disease, recent coronary artery bypass. 3. Moderate obesity body mass index greater than 40. 4. Hyperlipidemia, chronic. 5. Essential hypertension. 6. Chronic sleep apnea. 7. Primary osteoarthritis of multiple joints, bilateral, especially of the left knee. 8. Depression, ruled out per psychiatry. 9. Positive blood cultures Staph aureus 1 out of 4 could be contaminated, await further classification. PLAN: Patient overall doing much better, talked with the . We will use jesús wrap on left knee and use Voltaren gel. Patient one set of blood culture is growing Staph aureus. This could well be a contaminate. We will await formal results of the same. Physical therapy seen the patient. Will follow.
--- NOTE | 2016-07-24 22:10 | P.PN ---
Subjective Principal diagnosis: Sepsis Pleasant 76-year-old male presented to Hospital originally on 2015. The point, he had chest pain and was having a 6 weeks timeframe of increasing shortness of breath. On the day of presentation he was outside doing yard work he develops to be in chest pain became clammy and was brought to hospital. It evidence of a non-ST myocardial infarction. Cardiac catheterization was performed evidence of severe coronary disease as well as left distal main thrombosis. He was then taken to the operating room and had a four-vessel coronary artery bypass grafting procedure his sternum required repair with a cable and plate system. He did go to [facility] rehab for rehabilitation after his stay because he was so weak. 3 days before his second admission on 06/19/2016 he was or any of some difficulty with the sternal wound. Is unable bit of drainage. As he was admitted and infectious disease consultation occurred. He had evidence of an Acientobacter infection at that site. It was treated with antibiotic therapy. Marked improvement and was discharged. Subsequently he is then brought to the home setting after his rehab stay. She'll relatively well until the last 48 hours. The patient's relates that the occupational therapist, the home and they noticed that he was unable to raise his left arm. He has been evaluated and likely has a tear to his left shoulder. Although this was noted the patient was started have increasing difficulties with not feeling well. He was becoming much more weak. He developed significant amounts of diarrhea but there is evidence of any melena or hematochezia. He became dehydrated and was brought back to the emergency room again today. He subsequently has been admitted is receiving fluids. And now doing much better except complains of pain in the left knee with walking. He is feeling definitely better today after fluids and antibiotic therapy. Would like to have a true recliner chair to sit and since he has such a bad back. IV access was a great difficulty and a PICC line has now been placed. Objective - Vital Signs Vital signs: Vital Signs Temp 97.9 F 07/24/16 20:00 Pulse 80 07/24/16 21:23 Resp 18 07/24/16 20:00 BP 164/70 07/24/16 20:00 Pulse Ox 93 L 07/24/16 20:00 Intake & Output 07/24/16 07/24/16 07/25/16 06:59 18:59 06:59 Intake Total 360 350 Output Total 480 300 900 Balance -480 60 -550 Weight 142.2 kg Intake: Oral 360 350 Output: Urine 100 300 900 Post Void Residual 380 Other: Voiding Method Urinal Urinal Urinal # Voids 1 - Exam Pleasant superobese 76-year-old male who is supine in bed. Relates that he's feeling somewhat poorly but better than last night. HEENT: Anicteric conjunctiva are pink and moist nasal mucosa grossly intact without significant lesions, there is dry oral mucosa without thrush. Poor dentition Neck: The neck is supple without significant lymphadenopathy or thyromegaly. Lungs: Symmetrical air entry is noted. There are crackles in the left base. Few expiratory wheezes are noted. No lanie bronchial sounds are noted. Heart: Regular with an audible S1 and S2 soft S4 no distinct murmur click or rub is noted. PMI was not palpable The sternal wound and the chest wall is small was repacked with the silver dressing yesterday, Hydrofera Blue was being used prior Abdomen: Obese Positive bowel sounds soft and nontender without palpable masses or organomegaly. There was no guarding or rebound. Extremities: The upper extremities have excellent pulses they are symmetric, no significant petechiae or telangiectasia. No splinter hemorrhages were noted. PICC line is applied to the left arm. Does have complaint of some pain upon range of motion to the left shoulder. The bilateral extremities evidence of the chronic edema from his venous stasis. However improved from the last evaluation. No new ulcerations. Prior surgical wounds are all healed at this time. There is no open ulcerations or drainage. The peripheral pulses are 2+ and symmetric bilaterally. Complains of left knee pain but no effusion orn exam, no warmth or erythema of joint. Neuro: Awake alert oriented to person place and time. There are no acute new gross focal sensory motor deficits. - Labs CBC & Chem 7: 07/24/16 08:15 07/24/16 08:15 Labs: Abnormal Lab Results - Last 24 Hours (Table) 07/24/16 07/24/16 07/24/16 Range/Units 08:15 08:15 11:57 RBC 3.38 L (4.30-5.90) m/uL Hgb 10.1 L (13.0-17.5) gm/dL Hct 33.2 L (39.0-53.0) % MCHC 30.3 L (31.0-37.0) g/dL Glucose 124 H (74-99) mg/dL POC Glucose (mg/dL) 130 H (75-99) mg/dL 07/24/16 07/24/16 Range/Units 16:59 20:50 RBC (4.30-5.90) m/uL Hgb (13.0-17.5) gm/dL Hct (39.0-53.0) % MCHC (31.0-37.0) g/dL Glucose (74-99) mg/dL POC Glucose (mg/dL) 121 H 116 H (75-99) mg/dL Microbiology - Last 24 Hours (Table) 07/22/16 23:15 Blood Culture Gram Stain - Final Blood Blood Culture - Final Methicillin resist S. aureus 07/22/16 22:25 Urine Culture - Final Urine,Voided 07/23/16 10:53 Blood Culture - Preliminary Blood No Growth after 24 hours 07/23/16 09:36 Blood Culture - Preliminary Blood No Growth after 24 hours Laboratory Results WBC 8.2 k/uL (3.8-10.6) 07/24/16 08:15 RBC 3.38 m/uL (4.30-5.90) L 07/24/16 08:15 Hgb 10.1 gm/dL (13.0-17.5) L 07/24/16 08:15 Hct 33.2 % (39.0-53.0) L 07/24/16 08:15 MCV 98.4 fL (80.0-100.0) D 07/24/16 08:15 MCH 29.8 pg (25.0-35.0) 07/24/16 08:15 MCHC 30.3 g/dL (31.0-37.0) L 07/24/16 08:15 RDW 14.0 % (11.5-15.5) 07/24/16 08:15 Plt Count 409 k/uL (150-450) 07/24/16 08:15 Neutrophils % 69 % 07/24/16 08:15 Neutrophils % (Manual) 86.0 % 07/22/16 06:50 Band Neutrophils % 7.0 % 07/22/16 06:50 Lymphocytes % 16 % 07/24/16 08:15 Lymphocytes % (Manual) 3.0 % 07/22/16 06:50 Monocytes % 8 % 07/24/16 08:15 Monocytes % (Manual) 3.0 % 07/22/16 06:50 Eosinophils % 5 % 07/24/16 08:15 Eosinophils % (Manual) 1.0 % 07/22/16 06:50 Basophils % 1 % 07/24/16 08:15 Neutrophils # 5.7 k/uL (1.3-7.7) 07/24/16 08:15 Neutrophils # (Manual) 12.2 k/uL (1.3-7.7) H 07/22/16 06:50 Lymphocytes # 1.3 k/uL (1.0-4.8) 07/24/16 08:15 Lymphocytes # (Manual) 0.4 k/uL (1.0-4.8) L 07/22/16 06:50 Monocytes # 0.6 k/uL (0-1.0) 07/24/16 08:15 Monocytes # (Manual) 0.4 k/uL (0-1.0) 07/22/16 06:50 Eosinophils # 0.4 k/uL (0-0.7) 07/24/16 08:15 Eosinophils # (Manual) 0.1 k/uL (0-0.7) 07/22/16 06:50 Basophils # 0.1 k/uL (0-0.2) 07/24/16 08:15 Nucleated RBCs 0 /100 WBC (0-0) 07/22/16 06:50 Manual Slide Review Performed 07/22/16 06:50 Hypochromasia Marked 07/24/16 08:15 Poikilocytosis Slight 07/24/16 08:15 PT 10.7 sec (9.0-12.0) 07/22/16 06:50 INR 1.1 (<1.1) 07/22/16 06:50 APTT 20.8 sec (22.0-30.0) L 07/22/16 06:50 Sodium 141 mmol/L (137-145) 07/24/16 08:15 Potassium 3.6 mmol/L (3.5-5.1) 07/24/16 08:15 Chloride 98 mmol/L (98-107) 07/24/16 08:15 Carbon Dioxide 28 mmol/L (22-30) 07/24/16 08:15 Anion Gap 15 mmol/L 07/24/16 08:15 BUN 20 mg/dL (9-20) 07/24/16 08:15 Creatinine 1.19 mg/dL (0.66-1.25) 07/24/16 08:15 Est GFR (MDRD) Af Amer >60 (>60 ml/min/1.73 sqM) 07/24/16 08:15 Est GFR (MDRD) Non-Af 60 (>60 ml/min/1.73 sqM) 07/24/16 08:15 Glucose 124 mg/dL (74-99) H 07/24/16 08:15 POC Glucose (mg/dL) 116 mg/dL (75-99) H 07/24/16 20:50 POC Glu Telemarketing Agent ID Lore Costello 07/24/16 20:50 Plasma Lactic Acid Paul 1.3 mmol/L (0.7-2.0) 07/22/16 11:45 Calcium 8.9 mg/dL (8.4-10.2) 07/24/16 08:15 Total Bilirubin 0.9 mg/dL (0.2-1.3) 07/22/16 06:50 AST 38 U/L (17-59) 07/22/16 06:50 ALT 30 U/L (21-72) 07/22/16 06:50 Alkaline Phosphatase 75 U/L (38-126) 07/22/16 06:50 Total Creatine Kinase 132 U/L (55-170) 07/22/16 06:50 CK-MB (CK-2) 1.5 ng/mL (0.0-2.4) 07/22/16 06:50 CK-MB (CK-2) Rel Index 1.1 07/22/16 06:50 Troponin I 0.027 ng/mL (0.000-0.034) 07/22/16 06:50 Total Protein 7.4 g/dL (6.3-8.2) 07/22/16 06:50 Albumin 4.2 g/dL (3.5-5.0) 07/22/16 06:50 Cortisol 27 ug/dL 07/22/16 06:50 Influenza Type A RNA Not Detected (Not Detectd) 07/22/16 10:29 Influenza Type B (PCR) Not Detected (Not Detectd) 07/22/16 10:29 Microbiology 07/22/16 23:15 Blood Blood Culture Gram Stain - Final 07/22/16 23:15 Blood Blood Culture - Final Methicillin resist S. aureus 07/22/16 22:25 Urine,Voided Urine Culture - Final 07/23/16 10:53 Blood Blood Culture - Preliminary No Growth after 24 hours 07/23/16 09:36 Blood Blood Culture - Preliminary No Growth after 24 hours 07/22/16 06:50 Blood Blood Culture - Preliminary No Growth after 48 hours The blood culture was just annoitated Assessment and Plan (1) Sepsis Narrative/Plan: 76-year-old male presented to Hospital from home with a 48 hour history of feeling poorly. He presented emergency center and thought maybe he had a urinary tract infection. Was initiated to some oral antibiotic therapy. However the following hours continue to worsen. He became weak and was having worsening diarrhea was having difficulties trying to navigate the home. Apparently his brought him to Hospital via EMS. At presentation there was evidence of sepsis with a elevation of his leukocytosis as well as elevated lactic acid. he is responding well to fluid resuscitation. He is having some diarrhea and that is of concern and a C. difficile toxin been requested. He seems responded to fluid resuscitation. The lactic acidosis is improved. There is a concern to urinary tract infection as etiology for sepsis. Blood cultures are process. Urine cultures in process. He also has a difficulty with the erythema to the bilateral lower extremities. Consequently vancomycin therapy was initiated and also ceftriaxone is being started the possibility of a urinary tract infection. There is evidence of the positive culture with gram-positive cocci in the blood. Follow blood cultures have been requested. Await final results were to arrange plans for discharge. Local wound care will be applied to the sternal wound with the Aquacel silver rope. Aquaphor to the bilateral lower extremities are wrapped. The to injury to the right foot topical mupirocin and Band-Aid is added. earlier today the laboratory reported coagulase negative staph and the final LUCIANA was pending. Consequently the plan would've been and converted to an oral antibiotic. However the laboratory is now annotated the blood culture result. There is evidence of MRSA in the blood culture report This cannot be ignored patient does have IV access. We'll plan a 2 week course of vancomycin therapy for the current bacteremia make of that. This was the bacteremia is not completely clear. The sternal wound is looking quite well at this time. An injured right toe occurred upon his transfer to the hospital and does not appear to be etiology. Edema in the lower extremities is very improved today. To be the source. Status: Acute (2) UTI (urinary tract infection) Status: Acute (3) Leukocytosis Status: Acute (4) Elevated lactic acid level Status: Acute
[2016-07-25] MEDS ORDERED: VANCOMYCIN TROUGH DUE 1 EACH MISC MISCELLANE ONE (05:00)
[2016-07-25 06:04] LABS: Glucose,Whole Blood 117 mg/dL (75-99)
[2016-07-25 06:28] LABS: Anion Gap 14 mmol/L; Blood Urea Nitrogen 19 mg/dL (9-20); Calcium 9.5 mg/dL (8.4-10.2); Carbon Dioxide 30 mmol/L (22-30); Chloride 99 mmol/L (98-107); Glucose 118 mg/dL (74-99); Non-African American GFR(MDRD) >60 (>60 ml/min/1.73 sqM); Potassium 3.6 mmol/L (3.5-5.1); Sodium 143 mmol/L (137-145)
[2016-07-25] MEDS: VANCOMYCIN 1,750 MG in SODIUM CHLORIDE 0.9% 250 ML IVPB SCH ×2 (06:41→21:18)
[2016-07-25] MEDS: PANTOPRAZOLE 40 MG TABLET PO SCH (06:42)
[2016-07-25] MEDS: metFORMIN 500 MG TAB PO SCH ×2 (06:42→17:11)
[2016-07-25] MEDS: IPRATROPIUM-ALBUTEROL 3 ML NEB INHALATION SCH ×3 (07:04→20:40)
[2016-07-25] MEDS ORDERED: Potassium Replacement Protocol 1 EACH MISC MISCELLANE PRN (07:26)
[2016-07-25] MEDS ORDERED: POTASSIUM CHLORIDE ER 20 MEQ TAB.ER PO SCH (08:00)
[2016-07-25] MEDS: PETROLATUM, WHITE OINT 50 GM TUBE TOPICAL SCH (08:14)
[2016-07-25] MEDS: MUPIROCIN 2% OINT 22 GM TUBE TOPICAL SCH (08:14)
[2016-07-25] MEDS: amLODIPine 5 MG TAB PO SCH (08:16)
[2016-07-25] MEDS: DICLOFENAC SODIUM GEL 100 GM TUBE TOPICAL SCH ×4 (08:16→21:18)
[2016-07-25] MEDS: CLOPIDOGREL 75 MG TAB PO SCH (08:16)
[2016-07-25] MEDS: ALLOPURINOL 300 MG TAB PO SCH (08:18)
[2016-07-25] MEDS: METOPROLOL TARTRATE 50 MG TAB PO SCH ×2 (08:19→19:59)
[2016-07-25] MEDS: PSYLLIUM HUSK 100% 6 GM PACKET PO SCH (08:25)
[2016-07-25] MEDS: HYDROcodone/APAP 5-325MG 1 EACH TAB PO PRN ×4 (08:32→20:38)
--- NOTE | 2016-07-25 08:45 | P.PN ---
Subjective Principal diagnosis: Sepsis. Patient's sitting up in a chair in no apparent distress. States he feels a little better than when he came in. Objective - Vital Signs Vital signs: Vital Signs Temp 97.7 F 07/25/16 03:40 Pulse 88 07/25/16 07:19 Resp 18 07/25/16 03:40 BP 166/72 07/25/16 03:40 Pulse Ox 94 L 07/25/16 03:40 Intake & Output 07/24/16 07/25/16 07/25/16 18:59 06:59 18:59 Intake Total 360 1550 180 Output Total 300 1140 Balance 60 410 180 Weight 145.2 kg Intake: Oral 360 1550 180 Output: Urine 300 1140 Other: Voiding Method Urinal Urinal # Voids 1 - Constitutional General appearance: Present: cooperative, morbidly obese, no acute distress - Respiratory Details: Lungs diminished bilaterally. Respirations even and nonlabored. Oxygen saturation on room air 88%, 2 L nasal cannula replaced with rebound oxygen saturation to 94%. Able to achieve 1000 mL on incentive spirometry. - Cardiovascular Details: Clear S1-S2. No murmurs rubs or gallops. Regular rate and rhythm. Sinus rhythm on telemetry. Heart hugger in place. Sternum stable. Pitting edema present bilateral lower extremities, wrapped with Boris wraps. - Gastrointestinal Gastrointestinal Comment(s): Abdomen soft, nontender, nondistended. Active bowel sounds 4 quadrants. No bowel movement in 2 days. Currently on stool softeners. Tolerating diet. - Genitourinary Genitourinary Comment(s): Voiding clear yellow urine per urinal. - Integumentary Integumentary Comment(s): Skin warm, dry. Anterior chest incision healed except open at the inferior site , packed with Aquacel per ID. - Neurologic Neurologic Comment(s): Alert and oriented 3. Following all commands. - Musculoskeletal Musculoskeletal Comment(s): Able to ambulate to and from the bathroom with minimal assistance. - Psychiatric Psychiatric: Present: appropriate affect, intact judgment & insight - Allied health notes Allied health notes reviewed: social work - Labs CBC & Chem 7: 07/24/16 08:15 07/25/16 05:19 Labs: Abnormal Lab Results - Last 24 Hours (Table) 07/24/16 07/24/16 07/24/16 Range/Units 08:15 08:15 11:57 RBC 3.38 L (4.30-5.90) m/uL Hgb 10.1 L (13.0-17.5) gm/dL Hct 33.2 L (39.0-53.0) % MCHC 30.3 L (31.0-37.0) g/dL Glucose 124 H (74-99) mg/dL POC Glucose (mg/dL) 130 H (75-99) mg/dL 07/24/16 07/24/16 07/25/16 Range/Units 16:59 20:50 05:19 RBC (4.30-5.90) m/uL Hgb (13.0-17.5) gm/dL Hct (39.0-53.0) % MCHC (31.0-37.0) g/dL Glucose 118 H (74-99) mg/dL POC Glucose (mg/dL) 121 H 116 H (75-99) mg/dL 07/25/16 Range/Units 06:03 RBC (4.30-5.90) m/uL Hgb (13.0-17.5) gm/dL Hct (39.0-53.0) % MCHC (31.0-37.0) g/dL Glucose (74-99) mg/dL POC Glucose (mg/dL) 117 H (75-99) mg/dL Microbiology - Last 24 Hours (Table) 07/22/16 23:15 Blood Culture Gram Stain - Final Blood Blood Culture - Final Methicillin resist S. aureus 07/22/16 22:25 Urine Culture - Final Urine,Voided 07/23/16 10:53 Blood Culture - Preliminary Blood No Growth after 24 hours 07/23/16 09:36 Blood Culture - Preliminary Blood No Growth after 24 hours Assessment and Plan (1) Coronary artery disease Status: Acute (2) HTN (hypertension) Status: Acute (3) Leukocytosis Status: Acute (4) Sepsis Status: Acute Plan: 1. Continue aspirin, Plavix, Lopressor. 2. Continue vancomycin per infectious disease recommendations. 3. Continue to encourage incentive spirometry use, coughing and deep breathing. 4. Continue to encourage heart hugger use. 5. Increase activity, continue with physical therapy. 6. Monitor labs, vitals. 7. GI, DVT prophylaxis. 8. May transfer to [facility]. with telemetry from our standpoint. Time with Patient: Greater than 30
[2016-07-25 11:54] LABS: Glucose,Whole Blood 100 mg/dL (75-99)
--- NOTE | 2016-07-25 15:13 | XR ---
Left knee HISTORY: Left knee pain 2 views of the left knee No comparisons Marginal spurring is greatest in medial compartment with associated joint space loss, spurring and tonya int space loss also present at the patellofemoral joint. There is likely a small joint effusion. Surg ical clips are present in the soft tissues medially. There are vascular calcifications present. Align ment and bone mineralization are maintained. Enthesophytes present at the insertion of the quadriceps tendon, patellar tendon. Difficult to exclude chondrocalcinosis. 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
[2016-07-25] MEDS ORDERED: LIDOCAINE 1% INJ 10MG/ML (20 ML MDV) SQ ONE (16:28)
--- NOTE | 2016-07-25 16:32 | P.CNOR ---
History of Present Illness - [facility] Consult date: 07/25/16 Requesting physician: Yonathan Lala Consult reason: joint pain (Left knee pain) History of present illness: The patient is a 76-year-old male with a history of multiple medical conditions including gout and osteoarthritis. The patient is status post CABG in June 2016. He was admitted to [facility] on 07/22/2015 due to weakness, sepsis, and possible pneumonia. The patient is currently being followed by medical management, cardiothoracic surgery, and infectious disease. The patient does have a history of a sternal wound and infection post CABG. We were consulted for left knee pain. The patient states the pain started suddenly 2 days ago while ambulating. The patient has had continued weakness since surgery and has not ambulated much post surgery. Dr. Lala recommended orthopedic consultation due to positive blood cultures with MRSA without a clear source of infection. He is recommending a knee aspiration to rule out infection. The patient is a known patient to Dr. Darvin Erickson. He has a history of a right total knee arthroplasty 2 years ago and states the left knee needs to be replaced as well. Today, the patient was evaluated at the bedside with family present. He states overall his is feeling well but complaining of knee pain currently. He denies fever, chills, rigors, chest pain, shortness of breath, and abdominal pain. He states that he does get gout flareups and the last flareup was about 1 year ago. He takes colchicine during his flareups that seems to work well and takes allopurinol daily for gout maintenance. Review of Systems Constitutional: Denies chills, Denies fever, Denies lethargy Cardiovascular: Denies chest pain Respiratory: Denies dyspnea Musculoskeletal: left: knee pain, knee stiffness, knee swelling Past Medical History Past Medical History: Coronary Artery Disease (CAD), Cancer, Hyperlipidemia, Hypertension, Musculoskeletal Disorder, Sleep Apnea/CPAP/BIPAP Additional Past Medical History / Comment(s): Pt recently admitted to [facility] with infected sternal wound/leg blisters post CABG. He currently has a packed wound on his sternum. 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 History of Any Multi-Drug Resistant Organisms: None Reported Past Surgical History: Cholecystectomy, Coronary Bypass/CABG, Heart Catheterization, Joint Replacement, Tonsillectomy Additional Past Surgical History / Comment(s): PICC line insertion/removed, bilateral caract removals, COLONOSCOPY, EGD, CANCEROUS SKIN LESIONS REMOVED, TOTAL RIGHT KNEE REPLACEMENT, 06-04-16 QUAD BYPASS Past Anesthesia/Blood Transfusion Reactions: Previous Problems w/ Anesthesia Additional Past Anesthesia/Blood Transfusion Reaction / Comm: HAD A HARD TIME COMING OUT OF ANESTHESIA AFTER CHOLECYSTECTOMY Past Psychological History: No Psychological Hx Reported Additional Psychological History / Comment(s): Pt had CABG 06/04/16 and went to [facility] for rehab. He completed rehab and came home. Spouse states he then developed a sternal wound infection/blisters on legs and went back into [facility] and was discharged to [facility] again. He has again returned home. He was ambulating without device. His spouse was driving him to [place]. 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 Was in the [employer] and was in the [place] [place]. No illnesses when he was there. No animal exposures. There is no family home with his . No extensive travels. Tobacco smoking stopped in 1988. No significant alcohol use Smoking Status: Former smoker Past Alcohol Use History: Occasional Additional Past Alcohol Use History / Comment(s): Pt quit smoking in 1988 Past Drug Use History: None Reported - Past Family History Father Family Medical History: Vascular Disorder Additional Family Medical History / Comment(s): POOR CIRCULATION-HAD AMPUTATIONS D/T POOR CIRCULATION Mother Family Medical History: Cancer Medications and Allergies Home Medications Medication Instructions Recorded Confirmed Type Furosemide [Lasix] 40 mg PO DAILY 06/19/16 07/22/16 History Ipratropium-Albuterol Nebulize 3 ml INHALATION RT-TID 06/19/16 07/22/16 History [Duoneb 0.5 mg-3 mg/3 ml Soln] Pantoprazole [Protonix] 40 mg PO DAILY 06/19/16 07/22/16 History Sennosides-Docusate Sodium 2 tab PO HS 06/19/16 07/22/16 History [Senokot-S] metFORMIN HCL [Glucophage] 500 mg PO BID 06/19/16 07/22/16 History ALPRAZolam [Xanax] 0.25 mg PO TID 07/21/16 07/22/16 History Aspirin 325 mg PO HS 07/21/16 07/22/16 History Atorvastatin [Lipitor] 40 mg PO HS 07/21/16 07/22/16 History Cholecalciferol [Vitamin D3] 1,000 unit PO HS 07/21/16 07/22/16 History amLODIPine [Norvasc] 5 mg PO DAILY 07/21/16 07/22/16 History Allopurinol [Zyloprim] 150 mg PO DAILY 07/22/16 07/22/16 History Melatonin 1 mg PO HS 07/22/16 07/22/16 History Psyllium Husk 100% [Metamucil] 6 gm PO DAILY 07/22/16 07/22/16 History Allergies Allergy/AdvReac Type Severity Reaction Status Date / Time No Known Allergies Allergy Verified 07/22/16 08:22 Physical Examination The patient is a 76 year old male in no acute distress. He is alert and oriented x3. Focused exam of the left leg reveals a compressive boris wrap to the left lower leg. The knee has mild edema. Small effusion present. Pain on palpation of the lateral and medial joint line. ACL, PCL, MCL, LCL all appear intact. Nato's is mildly positive. Active range of motion of the left knee reveals full extension and flexion to 90 while sitting in chair. Calf is soft nontender. Patient has good foot and ankle motion. There is a small healing wound to the medial aspect of the knee from prior CABG surgery without signs or symptoms of infection. Neurological and circulatory status is intact. Results - Labs Labs: Abnormal Lab Results - Last 24 Hours (Table) 07/24/16 07/24/16 07/25/16 Range/Units 16:59 20:50 05:19 Glucose 118 H (74-99) mg/dL POC Glucose (mg/dL) 121 H 116 H (75-99) mg/dL 07/25/16 07/25/16 Range/Units 06:03 11:31 Glucose (74-99) mg/dL POC Glucose (mg/dL) 117 H 100 H (75-99) mg/dL Microbiology - Last 24 Hours (Table) 07/23/16 10:53 Blood Culture - Preliminary Blood No Growth after 48 hours 07/23/16 09:36 Blood Culture - Preliminary Blood No Growth after 48 hours 07/22/16 23:15 Blood Culture Gram Stain - Final Blood Blood Culture - Final Methicillin resist S. aureus 07/22/16 22:25 Urine Culture - Final Urine,Voided H & H 07/23/16 07/24/16 Range/Units 08:49 08:15 Hgb 10.7 L 10.1 L (13.0-17.5) gm/dL Hct 33.4 L 33.2 L (39.0-53.0) % Result Diagrams: 07/24/16 08:15 07/25/16 05:19 - Diagnostic results Knee x-ray: image reviewed (Medial and patellofemoral osteoarthritis present. There are some skin clips to the medial aspect of the knee. Calcifications are present to the quad tendon and patellar tendon.) Assessment and Plan (1) Left knee pain Status: Acute (2) Primary osteoarthritis of left knee Status: Acute (3) Gout Status: Acute Plan: The clinical and x-ray findings were discussed with the patient and the patient' s family the bedside. The case was also discussed at length with Dr. Newman. Dr. Lala is recommending a knee aspiration to rule out infection. The patient also has a history of gout which may be contributing to acute onset of knee pain. The patient agrees to go forward with a knee aspiration at the bedside. A left knee aspiration was performed under sterile conditions. The patient was injected with lidocaine 1% plain for local anesthesia. I used a 18- gauge needle with a 10 mL syringe to aspirate approximately 1 mL of clear joint fluid with a small amount of sanguinous drainage. No obvious pus noted. No obvious gouty arthritis fluid noted. The fluid was not sent to lab due to lack of adequate fluid aspirated. The patient's leg was wrapped with an Boris wrap. The patient tolerated the procedure well. A septic knee joint is not suspected at this time. We recommend medical management of gout at this time. Continue pain control. The patient will likely be discharged to rehab tomorrow. He is orthopedically stable for discharge. The patient will follow-up on an outpatient basis with Dr. Darvin Erickson once medical current issues have resolved.
[2016-07-25] MEDS ORDERED: LIDOCAINE 2% INJ 20 MG/ML (20 ML MDV) ONE (16:36)
[2016-07-25 17:01] LABS: Glucose,Whole Blood 106 mg/dL (75-99)
--- NOTE | 2016-07-25 19:14 | P.PN ---
Subjective Principal diagnosis: Sepsis Pleasant 76-year-old male presented to Hospital originally on 2015. The point, he had chest pain and was having a 6 weeks timeframe of increasing shortness of breath. On the day of presentation he was outside doing yard work he develops to be in chest pain became clammy and was brought to hospital. It evidence of a non-ST myocardial infarction. Cardiac catheterization was performed evidence of severe coronary disease as well as left distal main thrombosis. He was then taken to the operating room and had a four-vessel coronary artery bypass grafting procedure his sternum required repair with a cable and plate system. He did go to [facility] rehab for rehabilitation after his stay because he was so weak. 3 days before his second admission on 06/19/2016 he was or any of some difficulty with the sternal wound. Is unable bit of drainage. As he was admitted and infectious disease consultation occurred. He had evidence of an Acientobacter infection at that site. It was treated with antibiotic therapy. Marked improvement and was discharged. Subsequently he is then brought to the home setting after his rehab stay. She'll relatively well until the last 48 hours. The patient's relates that the occupational therapist, the home and they noticed that he was unable to raise his left arm. He has been evaluated and likely has a tear to his left shoulder. Although this was noted the patient was started have increasing difficulties with not feeling well. He was becoming much more weak. He developed significant amounts of diarrhea but there is evidence of any melena or hematochezia. He became dehydrated and was brought back to the emergency room again today. He subsequently has been admitted is receiving fluids. And now doing much better except complains of pain in the left knee with walking. He is feeling better today after fluids and antibiotic therapy. Would like to have a true recliner chair to sit and since he has such a bad back. IV access was a great difficulty and a PICC line has now been placed. Is however complaining of some worsening left knee pain. Some warmth was applied yesterday but is still bothering him considerably. With evidence of the MRSA bacteremia at further concern. Objective - Vital Signs Vital signs: Vital Signs Temp 96 F L 07/25/16 16:00 Pulse 91 07/25/16 16:00 Resp 18 07/25/16 16:00 BP 190/79 07/25/16 16:00 Pulse Ox 86 L 07/25/16 11:13 Intake & Output 07/25/16 07/25/16 07/26/16 06:59 18:59 06:59 Intake Total 1550 460 Output Total 1140 Balance 410 460 Weight 145.2 kg Intake: Intake, IV Titration 0 Amount Vancomycin 1,750 mg In 0 Sodium Chloride 0.9% 250 ml @ 125 mls/hr IVPB Q16H JONY Rx#:[id number] Vancomycin 1,750 mg In 0 Sodium Chloride 0.9% 250 ml @ 125 mls/hr IVPB Q24H JONY Rx#:[id number] cefTRIAXone 1,000 mg In 0 Sodium Chloride 0.9% 50 ml @ 100 mls/hr IVPB Q24HR JONY Rx#:[id number] Oral 1550 460 Output: Urine 1140 Other: Voiding Method Urinal Urinal # Voids 1 - Exam Pleasant superobese 76-year-old male who is supine in bed. Relates that he's feeling somewhat poorly but better than last night. HEENT: Anicteric conjunctiva are pink and moist nasal mucosa grossly intact without significant lesions, there is dry oral mucosa without thrush. Poor dentition Neck: The neck is supple without significant lymphadenopathy or thyromegaly. Lungs: Symmetrical air entry is noted. There are crackles in the left base. Few expiratory wheezes are noted. No lanie bronchial sounds are noted. Heart: Regular with an audible S1 and S2 soft S4 no distinct murmur click or rub is noted. PMI was not palpable The sternal wound and the chest wall is small was repacked with the silver dressing yesterday, Hydrofera Blue was being used prior Abdomen: Obese Positive bowel sounds soft and nontender without palpable masses or organomegaly. There was no guarding or rebound. Extremities: The upper extremities have excellent pulses they are symmetric, no significant petechiae or telangiectasia. No splinter hemorrhages were noted. PICC line is applied to the left arm. Does have complaint of some pain upon range of motion to the left shoulder. The bilateral extremities evidence of the chronic edema from his venous stasis. However improved from the last evaluation. No new ulcerations. Prior surgical wounds are all healed at this time. There is no open ulcerations or drainage. The peripheral pulses are 2+ and symmetric bilaterally. Complains of left knee pain but no effusion on exam, or erythema of joint. There is some scant warmth today. The pain did limit his ability to walk. Neuro: Awake alert oriented to person place and time. There are no acute new gross focal sensory motor deficits. - Labs CBC & Chem 7: 07/24/16 08:15 07/25/16 05:19 Labs: Abnormal Lab Results - Last 24 Hours (Table) 07/24/16 07/25/16 07/25/16 Range/Units 20:50 05:19 06:03 Glucose 118 H (74-99) mg/dL POC Glucose (mg/dL) 116 H 117 H (75-99) mg/dL 07/25/16 07/25/16 Range/Units 11:31 16:40 Glucose (74-99) mg/dL POC Glucose (mg/dL) 100 H 106 H (75-99) mg/dL Microbiology - Last 24 Hours (Table) 07/23/16 10:53 Blood Culture - Preliminary Blood No Growth after 48 hours 07/23/16 09:36 Blood Culture - Preliminary Blood No Growth after 48 hours 07/22/16 23:15 Blood Culture Gram Stain - Final Blood Blood Culture - Final Methicillin resist S. aureus Laboratory Results WBC 8.2 k/uL (3.8-10.6) 07/24/16 08:15 RBC 3.38 m/uL (4.30-5.90) L 07/24/16 08:15 Hgb 10.1 gm/dL (13.0-17.5) L 07/24/16 08:15 Hct 33.2 % (39.0-53.0) L 07/24/16 08:15 MCV 98.4 fL (80.0-100.0) D 07/24/16 08:15 MCH 29.8 pg (25.0-35.0) 07/24/16 08:15 MCHC 30.3 g/dL (31.0-37.0) L 07/24/16 08:15 RDW 14.0 % (11.5-15.5) 07/24/16 08:15 Plt Count 409 k/uL (150-450) 07/24/16 08:15 Neutrophils % 69 % 07/24/16 08:15 Neutrophils % (Manual) 86.0 % 07/22/16 06:50 Band Neutrophils % 7.0 % 07/22/16 06:50 Lymphocytes % 16 % 07/24/16 08:15 Lymphocytes % (Manual) 3.0 % 07/22/16 06:50 Monocytes % 8 % 07/24/16 08:15 Monocytes % (Manual) 3.0 % 07/22/16 06:50 Eosinophils % 5 % 07/24/16 08:15 Eosinophils % (Manual) 1.0 % 07/22/16 06:50 Basophils % 1 % 07/24/16 08:15 Neutrophils # 5.7 k/uL (1.3-7.7) 07/24/16 08:15 Neutrophils # (Manual) 12.2 k/uL (1.3-7.7) H 07/22/16 06:50 Lymphocytes # 1.3 k/uL (1.0-4.8) 07/24/16 08:15 Lymphocytes # (Manual) 0.4 k/uL (1.0-4.8) L 07/22/16 06:50 Monocytes # 0.6 k/uL (0-1.0) 07/24/16 08:15 Monocytes # (Manual) 0.4 k/uL (0-1.0) 07/22/16 06:50 Eosinophils # 0.4 k/uL (0-0.7) 07/24/16 08:15 Eosinophils # (Manual) 0.1 k/uL (0-0.7) 07/22/16 06:50 Basophils # 0.1 k/uL (0-0.2) 07/24/16 08:15 Nucleated RBCs 0 /100 WBC (0-0) 07/22/16 06:50 Manual Slide Review Performed 07/22/16 06:50 Hypochromasia Marked 07/24/16 08:15 Poikilocytosis Slight 07/24/16 08:15 PT 10.7 sec (9.0-12.0) 07/22/16 06:50 INR 1.1 (<1.1) 07/22/16 06:50 APTT 20.8 sec (22.0-30.0) L 07/22/16 06:50 Sodium 143 mmol/L (137-145) 07/25/16 05:19 Potassium 3.6 mmol/L (3.5-5.1) 07/25/16 05:19 Chloride 99 mmol/L (98-107) 07/25/16 05:19 Carbon Dioxide 30 mmol/L (22-30) 07/25/16 05:19 Anion Gap 14 mmol/L 07/25/16 05:19 BUN 19 mg/dL (9-20) 07/25/16 05:19 Creatinine 1.13 mg/dL (0.66-1.25) 07/25/16 05:19 Est GFR (MDRD) Af Amer >60 (>60 ml/min/1.73 sqM) 07/25/16 05:19 Est GFR (MDRD) Non-Af >60 (>60 ml/min/1.73 sqM) 07/25/16 05:19 Glucose 118 mg/dL (74-99) H 07/25/16 05:19 POC Glucose (mg/dL) 106 mg/dL (75-99) H 07/25/16 16:40 POC Glu Livestock Producer ID Donny Lemon 07/25/16 16:40 Plasma Lactic Acid Paul 1.3 mmol/L (0.7-2.0) 07/22/16 11:45 Calcium 9.5 mg/dL (8.4-10.2) 07/25/16 05:19 Total Bilirubin 0.9 mg/dL (0.2-1.3) 07/22/16 06:50 AST 38 U/L (17-59) 07/22/16 06:50 ALT 30 U/L (21-72) 07/22/16 06:50 Alkaline Phosphatase 75 U/L (38-126) 07/22/16 06:50 Total Creatine Kinase 132 U/L (55-170) 07/22/16 06:50 CK-MB (CK-2) 1.5 ng/mL (0.0-2.4) 07/22/16 06:50 CK-MB (CK-2) Rel Index 1.1 07/22/16 06:50 Troponin I 0.027 ng/mL (0.000-0.034) 07/22/16 06:50 Total Protein 7.4 g/dL (6.3-8.2) 07/22/16 06:50 Albumin 4.2 g/dL (3.5-5.0) 07/22/16 06:50 Cortisol 27 ug/dL 07/22/16 06:50 Vancomycin Trough 12.0 ug/mL 07/25/16 05:19 Influenza Type A RNA Not Detected (Not Detectd) 07/22/16 10:29 Influenza Type B (PCR) Not Detected (Not Detectd) 07/22/16 10:29 Microbiology 07/23/16 10:53 Blood Blood Culture - Preliminary No Growth after 48 hours 07/23/16 09:36 Blood Blood Culture - Preliminary No Growth after 48 hours 07/22/16 23:15 Blood Blood Culture Gram Stain - Final 07/22/16 23:15 Blood Blood Culture - Final Methicillin resist S. aureus 07/22/16 06:50 Blood Blood Culture - Preliminary No Growth after 72 hours 07/22/16 22:25 Urine,Voided Urine Culture - Final Assessment and Plan (1) Sepsis Narrative/Plan: 76-year-old male presented to Hospital from home with a 48 hour history of feeling poorly. He presented emergency center and thought maybe he had a urinary tract infection. Was initiated to some oral antibiotic therapy. However the following hours continue to worsen. He became weak and was having worsening diarrhea was having difficulties trying to navigate the home. Apparently his brought him to Hospital via EMS. At presentation there was evidence of sepsis with a elevation of his leukocytosis as well as elevated lactic acid. he is responding well to fluid resuscitation. He is having some diarrhea and that is of concern and a C. difficile toxin been requested. He seems responded to fluid resuscitation. The lactic acidosis is improved. There is a concern to urinary tract infection as etiology for sepsis. Blood cultures are process. Urine cultures in process. He also has a difficulty with the erythema to the bilateral lower extremities. Consequently vancomycin therapy was initiated and also ceftriaxone is being started the possibility of a urinary tract infection. There is evidence of the positive culture with gram-positive cocci in the blood. Follow blood cultures have been requested. Await final results were to arrange plans for discharge. Local wound care will be applied to the sternal wound with the Aquacel silver rope. Aquaphor to the bilateral lower extremities are wrapped. The to injury to the right foot topical mupirocin and Band-Aid is added. earlier today the laboratory reported coagulase negative staph and the final LUCIANA was pending. Consequently the plan would've been and converted to an oral antibiotic. However the laboratory annotated the blood culture result. There is evidence of MRSA in the blood culture report This cannot be ignored patient does have IV access. We'll plan a 2 week course of vancomycin therapy for the current bacteremia identified. The source of the bacteremia is not completely clear. The sternal wound is looking quite well at this time. An injured right toe occurred upon his transfer to the hospital and does not appear to be etiology. Edema in the lower extremities is very improved today. Source is not clear but he is at high risk given his many difficulties over time. Fortunately thought blood cultures are negative. Likely will go to extended care. Patient was having significant discomfort in the left knee. Because of this we' ll ask for orthopedic intervention. He does have a known history of gout but with the bacteremia would be concerning the possibility of a septic arthritis and aspiration may be indicated to further evaluate. Status: Acute (2) UTI (urinary tract infection) Status: Acute (3) Leukocytosis Status: Acute (4) Elevated lactic acid level Status: Acute
[2016-07-25] MEDS: CHOLECALCIFEROL 1,000 UNIT TAB PO SCH (19:59)
[2016-07-25] MEDS: SENNOSIDES-DOCUSATE SODIUM 1 EACH TAB PO SCH (19:59)
[2016-07-25] MEDS: ATORVASTATIN 40 MG TAB PO SCH (19:59)
[2016-07-25] MEDS: ASPIRIN 325 MG TAB PO SCH (19:59)
[2016-07-25] MEDS: MELATONIN 1 MG TAB PO SCH (19:59)
[2016-07-25 20:27] LABS: Glucose,Whole Blood 122 mg/dL (75-99)
--- NOTE | 2016-07-25 21:48 | PN ---
DATE OF SERVICE: 07/25/2016 PRESENTING COMPLAINT: This patient presented with UTI; also was encephalopathic, probably from Xanax that was discontinued. Doing much better. Patient also has severe arthritis in the left knee. Awaiting surgery down the road. Patient's blood culture did come back showing MRSA; hence vancomycin has been started. Review systems done for constitutional, cardiovascular, GI, pulmonary; relevant findings as above. Current medications are reviewed that include IV vancomycin. On examination, temperature 96, pulse 99, respiration 18, blood pressure 156/72, pulse ox 93% on 3 L. GENERAL APPEARANCE: Sitting up in a chair. Awake. EYES: Pupils equal. Conjunctivae normal. NECK: JVD not raised. Mass not palpable. RESPIRATORY: Effort normal. LUNGS: Diminished breath sounds. CARDIOVASCULAR: Heart sounds muffled. Mild edema. ABDOMEN: Soft, nontender. Liver and spleen not palpable. PSYCHIATRY: Alert and oriented x3. Mood and affect normal. MUSCULOSKELETAL: Evidence of severe osteoarthritis in the left knee. INVESTIGATIONS: BUN and creatinine are normal. Patient's blood culture from 07/22/16 is growing MRSA. ASSESSMENT: 1. Acute urinary tract infection with sepsis, present on admission. 2. Sepsis with positive methicillin-resistant Staphylococcus aureus in one set. 3. Coronary artery disease with recent coronary artery bypass. 4. Morbid obesity; body mass index greater than 40. 5. Hyperlipidemia, chronic. 6. Essential hypertension. 7. Chronic sleep apnea. 8. Primary osteoarthritis in multiple joints bilaterally, especially in the left knee, severe; due for surgery down the road. 9. Depression ruled out by Psychiatry. PLAN: Patient was put on vancomycin. Continue with Boris wraps on the left knee and Voltaren gel. Orthopedics was consulted, and they did try to tap the left knee; not much was obtained. Looking at placement in ECF. Patient will need about 2 weeks of antibiotics in the form of vancomycin.
[2016-07-26 06:03] LABS: Anion Gap 11 mmol/L; Blood Urea Nitrogen 17 mg/dL (9-20); Calcium 9.5 mg/dL (8.4-10.2); Carbon Dioxide 29 mmol/L (22-30); Chloride 101 mmol/L (98-107); Glucose 111 mg/dL (74-99); Non-African American GFR(MDRD) >60 (>60 ml/min/1.73 sqM); Potassium 3.7 mmol/L (3.5-5.1); Sodium 141 mmol/L (137-145)
[2016-07-26] MEDS: metFORMIN 500 MG TAB PO SCH ×2 (06:42→16:43)
[2016-07-26] MEDS ORDERED: Potassium Replacement Protocol 1 EACH MISC MISCELLANE PRN (06:56)
[2016-07-26] MEDS ORDERED: POTASSIUM CHLORIDE ER 20 MEQ TAB.ER PO SCH (07:00)
--- NOTE | 2016-07-26 07:58 | P.PN ---
Subjective Principal diagnosis: Sepsis. Patient's sitting up in a chair in no apparent distress. States he feels a little better than when he came in. Currently eating breakfast states his knee pain is about the same Objective - Vital Signs Vital signs: Vital Signs Temp 96.9 F L 07/26/16 04:00 Pulse 81 07/26/16 04:00 Resp 18 07/26/16 04:00 BP 144/66 07/26/16 04:00 Pulse Ox 95 07/26/16 04:00 Intake & Output 07/25/16 07/26/16 07/26/16 18:59 06:59 18:59 Intake Total 460 960 220 Balance 460 960 220 Weight 146 kg Intake: Intake, IV Titration 0 Amount Vancomycin 1,750 mg In 0 Sodium Chloride 0.9% 250 ml @ 125 mls/hr IVPB Q16H JONY Rx#:[id number] Vancomycin 1,750 mg In 0 Sodium Chloride 0.9% 250 ml @ 125 mls/hr IVPB Q24H JONY Rx#:[id number] cefTRIAXone 1,000 mg In 0 Sodium Chloride 0.9% 50 ml @ 100 mls/hr IVPB Q24HR JONY Rx#:[id number] Oral 460 960 220 Other: Voiding Method Urinal Urinal # Voids 1 - Constitutional General appearance: Present: morbidly obese, no acute distress - Respiratory Details: Lungs sounds diminished. Respirations even and nonlabored. Currently remains on 3 L nasal cannula. Able to achieve 1000 mL on incentive spirometry. - Cardiovascular Details: Clear S1-S2. No murmurs rubs or gallops. Regular rate and rhythm. Normal sinus rhythm on telemetry. Bilateral lower extremity edema remains with legs Boris wrapped. Heart hugger in place, patient exhibits good use of heart hugger. - Gastrointestinal Gastrointestinal Comment(s): Abdomen soft, nontender, nondistended. Bowel sounds active 4 quadrants. Patient tolerating diet okay. Denies bowel movement 3 days - Genitourinary Genitourinary Comment(s): Voiding clear yellow urine per urinal - Musculoskeletal Musculoskeletal Comment(s): Ambulating to and from the bathroom without incident. - Psychiatric Psychiatric: Present: appropriate affect, intact judgment & insight - Allied health notes Allied health notes reviewed: PT - Labs CBC & Chem 7: 07/24/16 08:15 07/26/16 05:27 Labs: Abnormal Lab Results - Last 24 Hours (Table) 07/25/16 07/25/16 07/25/16 Range/Units 11:31 16:40 20:26 Glucose (74-99) mg/dL POC Glucose (mg/dL) 100 H 106 H 122 H (75-99) mg/dL 07/26/16 Range/Units 05:27 Glucose 111 H (74-99) mg/dL POC Glucose (mg/dL) (75-99) mg/dL Microbiology - Last 24 Hours (Table) 07/23/16 10:53 Blood Culture - Preliminary Blood No Growth after 48 hours 07/23/16 09:36 Blood Culture - Preliminary Blood No Growth after 48 hours 07/22/16 23:15 Blood Culture Gram Stain - Final Blood Blood Culture - Final Methicillin resist S. aureus Assessment and Plan (1) Coronary artery disease Status: Acute (2) HTN (hypertension) Status: Acute (3) Leukocytosis Status: Acute (4) Sepsis Status: Acute Plan: 1. Continue aspirin, Plavix, Lopressor. 2. Continue vancomycin per infectious disease recommendations. 3. Continue to encourage incentive spirometry use, coughing and deep breathing. 4. Continue to encourage heart hugger use. 5. Increase activity, continue with physical therapy. 6. Monitor labs, vitals. 7. GI, DVT prophylaxis. 8. May transfer to W. with telemetry from our standpoint. Time with Patient: Greater than 30
[2016-07-26] MEDS: IPRATROPIUM-ALBUTEROL 3 ML NEB INHALATION SCH ×2 (08:51→12:46)
[2016-07-26] MEDS: PSYLLIUM HUSK 100% 6 GM PACKET PO SCH (09:17)
[2016-07-26] MEDS: DICLOFENAC SODIUM GEL 100 GM TUBE TOPICAL SCH ×3 (09:18→16:43)
[2016-07-26] MEDS: CLOPIDOGREL 75 MG TAB PO SCH (09:19)
[2016-07-26] MEDS: MUPIROCIN 2% OINT 22 GM TUBE TOPICAL SCH (09:19)
[2016-07-26] MEDS: METOPROLOL TARTRATE 50 MG TAB PO SCH (09:19)
[2016-07-26] MEDS: amLODIPine 5 MG TAB PO SCH (09:20)
[2016-07-26] MEDS: ALLOPURINOL 300 MG TAB PO SCH (09:20)
[2016-07-26] MEDS: PETROLATUM, WHITE OINT 50 GM TUBE TOPICAL SCH (09:22)
[2016-07-26] MEDS: HYDROcodone/APAP 5-325MG 1 EACH TAB PO PRN ×3 (10:10→16:47)
[2016-07-26 11:47] LABS: Glucose,Whole Blood 107 mg/dL (75-99)
[2016-07-26 12:09] VITALS: BP 148/66; TEMP 97.5
[2016-07-26 12:43] VITALS: PULSE 80
[2016-07-26] MEDS: VANCOMYCIN 1,750 MG in SODIUM CHLORIDE 0.9% 250 ML IVPB SCH (13:28)
--- NOTE | 2016-07-26 14:56 | DS ---
DATE OF ADMISSION: 07/22/2016 DATE OF DISCHARGE: 07/26/2016 FINAL DIAGNOSES: 1. Sepsis with positive blood cultures growing methicillin-resistant Staphylococcus aureus, present on admission. 2. Possible urinary tract infection on admission. 3. Coronary artery disease with recent coronary artery bypass. 4. Morbid obesity; body mass index greater than 40. 5. Acute metabolic encephalopathy, probably from sepsis and Xanax. 6. Hyperlipidemia, chronic. 7. Essential hypertension. 8. Chronic sleep apnea. 9. Primary osteoarthritis of multiple joints bilaterally, especially the left knee, severe, pending surgery down the road. HOSPITAL COURSE: This is a very pleasant gentleman who recently had a coronary artery bypass, then had a sternal wound infection with Acinetobacter baumannii; completed a course for the same with Deepika. He presented with a sepsis picture. Blood cultures were positive for MRSA; hence he was put on vancomycin. Patient's sternal wound has healed completely. Source could be the leg, though that is healing pretty well. On the day of discharge, care was discussed in detail with the patient and his . Patient was also seen by Psychiatry, who does not feel there is any depression. Overall doing much better. Walked with Physical Therapy. CONSULTATIONS: 1. Dr. Lala, Infectious Disease. 2. Dr. Newman, [facility]. 3. Dr. Gaviria, Cardiothoracic Surgery. DISCHARGE MEDICATIONS: 1. Plavix 75 mg a day. 2. DuoNeb t.i.d. 3. Protonix 40 mg a day. 4. Senokot S two tablets p.o. at bedtime. 5. Glucophage 500 mg p.o. b.i.d. 6. Lopressor 150 mg p.o. b.i.d. 7. Aspirin 325 mg p.o. at bedtime. 8. Lipitor 40 mg at bedtime. 9. Vitamin D3 1000 units p.o. at bedtime. 10. Norvasc 5 mg p.o. daily. 11. Allopurinol 150 mg p.o. daily. 12. Melatonin 1 to 3 mg p.o. at bedtime. 13. Metamucil 6 grams p.o. daily. 14. Vancomycin 750 mg IV piggyback q.24 for a total of 21 days. 15. Voltaren gel 4 grams topically q.i.d. to the left knee. 16. Oxford 5 one tablet p.o. q.4 p.r.n. 17. Bactroban 2% topically daily. 18. Aquaphor topically daily. DISPOSITION: [facility]. LABS: CBC, BMP weekly. Vancomycin trough determined by local pharmacy. Follow up with Dr. Lala in 2 weeks. Follow up with Dr. Yoo after discharge from [facility]. Follow up with Dr. Erickson as needed. Follow up with Dr. Moe at [facility]. On examination, lungs have fair air entry. CARDIOVASCULAR: First and second sounds normal. PSYCH: Alert and oriented x3. Care was discussed in detail with the patient and his . Questions were answered. Discharge planning more than 35 minutes. ADDITIONAL NOTE: Please use Boris wrap on the left knee to improve mobility and stability of the knee.
[2016-07-26 16:42] VITALS: RESP 20
--- NOTE | 2016-07-26 21:22 | P.PN ---
Subjective Principal diagnosis: Sepsis Pleasant 76-year-old male presented to Hospital originally on 2015. The point, he had chest pain and was having a 6 weeks timeframe of increasing shortness of breath. On the day of presentation he was outside doing yard work he develops to be in chest pain became clammy and was brought to hospital. It evidence of a non-ST myocardial infarction. Cardiac catheterization was performed evidence of severe coronary disease as well as left distal main thrombosis. He was then taken to the operating room and had a four-vessel coronary artery bypass grafting procedure his sternum required repair with a cable and plate system. He did go to [facility] rehab for rehabilitation after his stay because he was so weak. 3 days before his second admission on 06/19/2016 he was or any of some difficulty with the sternal wound. Is unable bit of drainage. As he was admitted and infectious disease consultation occurred. He had evidence of an Acientobacter infection at that site. It was treated with antibiotic therapy. Marked improvement and was discharged. Subsequently he is then brought to the home setting after his rehab stay. She'll relatively well until the last 48 hours. The patient's relates that the occupational therapist, the home and they noticed that he was unable to raise his left arm. He has been evaluated and likely has a tear to his left shoulder. Although this was noted the patient was started have increasing difficulties with not feeling well. He was becoming much more weak. He developed significant amounts of diarrhea but there is evidence of any melena or hematochezia. He became dehydrated and was brought back to the emergency room again today. He subsequently has been admitted is receiving fluids. And now doing much better except complains of pain in the left knee with walking. He is feeling better today after fluids and antibiotic therapy. Would like to have a true recliner chair to sit and since he has such a bad back. IV access was a great difficulty and a PICC line has now been placed. did complain of some worsening left knee pain. Because of this orthopedics was consulted. Aspiration was performed without evidence of septic arthritis or of significant gout. Patient is feeling somewhat better today mood is Objective - Vital Signs Vital signs: Vital Signs Temp 97.5 F L 07/26/16 11:59 Pulse 77 07/26/16 11:59 Resp 20 07/26/16 16:00 BP 148/66 07/26/16 11:59 Pulse Ox 96 07/26/16 11:59 Intake & Output 07/26/16 07/26/16 07/27/16 06:59 18:59 06:59 Intake Total 960 595 Balance 960 595 Weight 146 kg Intake: Oral 960 595 Blood Product 0 Other: Voiding Method Urinal Urinal # Voids 1 - Exam Pleasant superobese 76-year-old male who is supine in bed. Relates that he's feeling somewhat poorly but better than last night. HEENT: Anicteric conjunctiva are pink and moist nasal mucosa grossly intact without significant lesions, there is dry oral mucosa without thrush. Poor dentition Neck: The neck is supple without significant lymphadenopathy or thyromegaly. Lungs: Symmetrical air entry is noted. There are crackles in the left base. Few expiratory wheezes are noted. No lanie bronchial sounds are noted. Heart: Regular with an audible S1 and S2 soft S4 no distinct murmur click or rub is noted. PMI was not palpable The sternal wound and the chest wall is small was repacked with the silver dressing yesterday, Hydrofera Blue was being used prior Abdomen: Obese Positive bowel sounds soft and nontender without palpable masses or organomegaly. There was no guarding or rebound. Extremities: The upper extremities have excellent pulses they are symmetric, no significant petechiae or telangiectasia. No splinter hemorrhages were noted. PICC line is applied to the left arm. Does have complaint of some pain upon range of motion to the left shoulder. The bilateral extremities evidence of the chronic edema from his venous stasis. However improved from the last evaluation. No new ulcerations. Prior surgical wounds are all healed at this time. There is no open ulcerations or drainage. The peripheral pulses are 2+ and symmetric bilaterally. Complains of left knee pain but no effusion on exam, or erythema of joint. There is some scant warmth today. The pain is improved today with range of motion of Neuro: Awake alert oriented to person place and time. There are no acute new gross focal sensory motor deficits. - Labs CBC & Chem 7: 07/24/16 08:15 07/26/16 05:27 Labs: Abnormal Lab Results - Last 24 Hours (Table) 07/26/16 07/26/16 Range/Units 05:27 11:44 Glucose 111 H (74-99) mg/dL POC Glucose (mg/dL) 107 H (75-99) mg/dL Microbiology - Last 24 Hours (Table) 07/23/16 10:53 Blood Culture - Preliminary Blood No Growth after 72 hours 07/23/16 09:36 Blood Culture - Preliminary Blood No Growth after 72 hours Laboratory Results WBC 8.2 k/uL (3.8-10.6) 07/24/16 08:15 RBC 3.38 m/uL (4.30-5.90) L 07/24/16 08:15 Hgb 10.1 gm/dL (13.0-17.5) L 07/24/16 08:15 Hct 33.2 % (39.0-53.0) L 07/24/16 08:15 MCV 98.4 fL (80.0-100.0) D 07/24/16 08:15 MCH 29.8 pg (25.0-35.0) 07/24/16 08:15 MCHC 30.3 g/dL (31.0-37.0) L 07/24/16 08:15 RDW 14.0 % (11.5-15.5) 07/24/16 08:15 Plt Count 409 k/uL (150-450) 07/24/16 08:15 Neutrophils % 69 % 07/24/16 08:15 Neutrophils % (Manual) 86.0 % 07/22/16 06:50 Band Neutrophils % 7.0 % 07/22/16 06:50 Lymphocytes % 16 % 07/24/16 08:15 Lymphocytes % (Manual) 3.0 % 07/22/16 06:50 Monocytes % 8 % 07/24/16 08:15 Monocytes % (Manual) 3.0 % 07/22/16 06:50 Eosinophils % 5 % 07/24/16 08:15 Eosinophils % (Manual) 1.0 % 07/22/16 06:50 Basophils % 1 % 07/24/16 08:15 Neutrophils # 5.7 k/uL (1.3-7.7) 07/24/16 08:15 Neutrophils # (Manual) 12.2 k/uL (1.3-7.7) H 07/22/16 06:50 Lymphocytes # 1.3 k/uL (1.0-4.8) 07/24/16 08:15 Lymphocytes # (Manual) 0.4 k/uL (1.0-4.8) L 07/22/16 06:50 Monocytes # 0.6 k/uL (0-1.0) 07/24/16 08:15 Monocytes # (Manual) 0.4 k/uL (0-1.0) 07/22/16 06:50 Eosinophils # 0.4 k/uL (0-0.7) 07/24/16 08:15 Eosinophils # (Manual) 0.1 k/uL (0-0.7) 07/22/16 06:50 Basophils # 0.1 k/uL (0-0.2) 07/24/16 08:15 Nucleated RBCs 0 /100 WBC (0-0) 07/22/16 06:50 Manual Slide Review Performed 07/22/16 06:50 Hypochromasia Marked 07/24/16 08:15 Poikilocytosis Slight 07/24/16 08:15 PT 10.7 sec (9.0-12.0) 07/22/16 06:50 INR 1.1 (<1.1) 07/22/16 06:50 APTT 20.8 sec (22.0-30.0) L 07/22/16 06:50 Sodium 141 mmol/L (137-145) 07/26/16 05:27 Potassium 3.7 mmol/L (3.5-5.1) 07/26/16 05:27 Chloride 101 mmol/L (98-107) 07/26/16 05:27 Carbon Dioxide 29 mmol/L (22-30) 07/26/16 05:27 Anion Gap 11 mmol/L 07/26/16 05:27 BUN 17 mg/dL (9-20) 07/26/16 05:27 Creatinine 1.10 mg/dL (0.66-1.25) 07/26/16 05:27 Est GFR (MDRD) Af Amer >60 (>60 ml/min/1.73 sqM) 07/26/16 05:27 Est GFR (MDRD) Non-Af >60 (>60 ml/min/1.73 sqM) 07/26/16 05:27 Glucose 111 mg/dL (74-99) H 07/26/16 05:27 POC Glucose (mg/dL) 107 mg/dL (75-99) H 07/26/16 11:44 POC Glu Gum Cook ID Donny Lemon 07/26/16 11:44 Plasma Lactic Acid Paul 1.3 mmol/L (0.7-2.0) 07/22/16 11:45 Calcium 9.5 mg/dL (8.4-10.2) 07/26/16 05:27 Total Bilirubin 0.9 mg/dL (0.2-1.3) 07/22/16 06:50 AST 38 U/L (17-59) 07/22/16 06:50 ALT 30 U/L (21-72) 07/22/16 06:50 Alkaline Phosphatase 75 U/L (38-126) 07/22/16 06:50 Total Creatine Kinase 132 U/L (55-170) 07/22/16 06:50 CK-MB (CK-2) 1.5 ng/mL (0.0-2.4) 07/22/16 06:50 CK-MB (CK-2) Rel Index 1.1 07/22/16 06:50 Troponin I 0.027 ng/mL (0.000-0.034) 07/22/16 06:50 Total Protein 7.4 g/dL (6.3-8.2) 07/22/16 06:50 Albumin 4.2 g/dL (3.5-5.0) 07/22/16 06:50 Cortisol 27 ug/dL 07/22/16 06:50 Vancomycin Trough 12.0 ug/mL 07/25/16 05:19 Influenza Type A RNA Not Detected (Not Detectd) 07/22/16 10:29 Influenza Type B (PCR) Not Detected (Not Detectd) 07/22/16 10:29 Microbiology 07/23/16 10:53 Blood Blood Culture - Preliminary No Growth after 72 hours 07/23/16 09:36 Blood Blood Culture - Preliminary No Growth after 72 hours 07/22/16 06:50 Blood Blood Culture - Preliminary No Growth after 96 hours 07/22/16 23:15 Blood Blood Culture Gram Stain - Final 07/22/16 23:15 Blood Blood Culture - Final Methicillin resist S. aureus 07/22/16 22:25 Urine,Voided Urine Culture - Final Assessment and Plan (1) Sepsis Narrative/Plan: 76-year-old male presented to Hospital from home with a 48 hour history of feeling poorly. He presented emergency center and thought maybe he had a urinary tract infection. Was initiated to some oral antibiotic therapy. However the following hours continue to worsen. He became weak and was having worsening diarrhea was having difficulties trying to navigate the home. Apparently his brought him to Hospital via EMS. At presentation there was evidence of sepsis with a elevation of his leukocytosis as well as elevated lactic acid. he is responding well to fluid resuscitation. He is having some diarrhea and that is of concern and a C. difficile toxin been requested. He seems responded to fluid resuscitation. The lactic acidosis is improved. There is a concern to urinary tract infection as etiology for sepsis. Blood cultures are process. Urine cultures in process. He also has a difficulty with the erythema to the bilateral lower extremities. Consequently vancomycin therapy was initiated and also ceftriaxone is being started the possibility of a urinary tract infection. There is evidence of the positive culture with gram-positive cocci in the blood. Follow blood cultures have been requested. Await final results were to arrange plans for discharge. Local wound care will be applied to the sternal wound with the Aquacel silver rope. Aquaphor to the bilateral lower extremities are wrapped. The to injury to the right foot topical mupirocin and Band-Aid is added. earlier today the laboratory reported coagulase negative staph and the final LUCIANA was pending. Consequently the plan would've been and converted to an oral antibiotic. However the laboratory annotated the blood culture result. There is evidence of MRSA in the blood culture report This cannot be ignored patient does have IV access. We'll plan a 2 week course of vancomycin therapy for the current bacteremia identified. The source of the bacteremia is not completely clear. The sternal wound is looking quite well at this time. An injured right toe occurred upon his transfer to the hospital and does not appear to be etiology. Edema in the lower extremities is very improved today. Source is not clear but he is at high risk given his many difficulties over time. Fortunately thought blood cultures are negative. Likely will go to extended care. Patient did significant discomfort in the left knee. now much better today. Orthopedics evaluated with no evidence of joint infection We'll go to extended care to complete is 2 weeks of antibiotic therapy. Is in need of further treatment of his underlying gout Colchicine has been reordered. Status: Acute (2) UTI (urinary tract infection) Status: Acute (3) Leukocytosis Status: Acute (4) Elevated lactic acid level Status: Acute
== END 2016-07-26 17:58 | DRG 871 ==
LOC: EC 05:44 → 6SEL 08:54
PROVIDERS: ADMIT Hospitalist; ATTEND Hospitalist
PROC: 02HV33Z Insertion of Infusion Device into Superior Vena Cava, Percutaneous Approach (ICD-10-PCS; principal; 2016-07-22 15:47)
DX: A41.02 Sepsis due to Methicillin resistant Staphylococcus aureus (principal); G93.41 Metabolic encephalopathy; N39.0 Urinary tract infection, site not specified; E86.0 Dehydration; F03.90 Unspecified dementia, unspecified severity, without behavioral disturbance, psychotic disturbance, mood disturbance, and anxiety; E66.01 Morbid (severe) obesity due to excess calories; E78.5 Hyperlipidemia, unspecified; G47.30 Sleep apnea, unspecified; I10 Essential (primary) hypertension; I25.10 Atherosclerotic heart disease of native coronary artery without angina pectoris; I25.2 Old myocardial infarction; M10.9 Gout, unspecified; G89.29 Other chronic pain; R19.7 Diarrhea, unspecified; M54.9 Dorsalgia, unspecified; K57.90 Diverticulosis of intestine, part unspecified, without perforation or abscess without bleeding; M15.9 Polyosteoarthritis, unspecified; I87.2 Venous insufficiency (chronic) (peripheral); T42.4X5A Adverse effect of benzodiazepines, initial encounter; Z79.02 Long term (current) use of antithrombotics/antiplatelets; Z68.41 Body mass index [BMI] 40.0-44.9, adult; Z79.82 Long term (current) use of aspirin; Z79.899 Other long term (current) drug therapy; Z87.891 Personal history of nicotine dependence; Z95.1 Presence of aortocoronary bypass graft; Z96.651 Presence of right artificial knee joint; Z85.828 Personal history of other malignant neoplasm of skin
CPT/HCPCS: 36415; 36569; 70450; 71020; 76937; 77001; 80048; 80053; 80202; 81001; 82533; 82550; 82553; 83605; 83735; 83880; 84100; 84484; 85025; 85610; 85730; 87040; 87077; 87086; 87186; 87502; 93005; 93965; 93970; 94640; 94760; 96361; 96365; 96372; 99285

== ENCOUNTER 2016-10-25 07:39 | Emergency (ER) | payer MEDICARE ==
--- NOTE | 2016-10-25 08:18 | ED ---
General Adult HPI - General Chief complaint: ENT Stated complaint: NOSEBLEED Time Seen by Provider: 10/25/16 08:07 Source: patient, family, RN notes reviewed Mode of arrival: ambulatory Limitations: no limitations - History of Present Illness Initial comments: Patient is a 76-year-old male who presents emergency room today with a chief complaint of a nosebleed. Patient does admit that it started approximately 7 AM. Patient states he was sitting a chair began bleeding on the left side. States he has had nosebleeds once the past proximate one year ago that he was seen here in the emergency room for. Does admit that he had some nasal clams that he clamped his nose off. States not feeling any bleeding going down the back of throat. At this time does not seem to be bleeding anymore. Patient states is not on any blood thinners. Did noticed that his blood pressure was elevated. Patient denies any other complaints or symptoms. Patient denies any recent fever, chills, shortness of breath, chest pain, back pain, abdominal pain , nausea or vomiting, numbness or tingling, dysuria or hematuria, constipation or diarrhea, headaches or visual changes, or any other complaints. - Related Data Home Medications Medication Instructions Recorded Confirmed Ipratropium-Albuterol Nebulize 3 ml INHALATION RT-TID PRN 06/19/16 10/25/16 [Duoneb 0.5 mg-3 mg/3 ml Soln] Pantoprazole [Protonix] 40 mg PO DAILY 06/19/16 10/25/16 Sennosides-Docusate Sodium 2 tab PO DAILY 06/19/16 10/25/16 [Senokot-S] metFORMIN HCL [Glucophage] 500 mg PO BID 06/19/16 10/25/16 Aspirin 325 mg PO HS 07/21/16 10/25/16 Atorvastatin [Lipitor] 40 mg PO HS 07/21/16 10/25/16 Cholecalciferol [Vitamin D3] 1,000 unit PO HS 07/21/16 10/25/16 amLODIPine [Norvasc] 5 mg PO DAILY 07/21/16 10/25/16 Allopurinol [Zyloprim] 150 mg PO HS 07/22/16 10/25/16 Melatonin 1 mg PO HS 07/22/16 10/25/16 Metoprolol Tartrate [Lopressor] 150 mg PO BID 10/25/16 10/25/16 Previous Rx's Medication Instructions Recorded Clopidogrel [Plavix] 75 mg PO DAILY tab 06/12/16 HYDROcodone/APAP 5-325MG [Bowen 1 tab PO Q4HR PRN #20 tab 07/26/16 5-325] Allergies Allergy/AdvReac Type Severity Reaction Status Date / Time No Known Allergies Allergy Verified 10/25/16 08:28 Review of Systems ROS Statement: Those systems with pertinent positive or pertinent negative responses have been documented in the HPI. ROS Other: All systems not noted in ROS Statement are negative. Past Medical History Past Medical History: Coronary Artery Disease (CAD), Cancer, Hyperlipidemia, Hypertension, Musculoskeletal Disorder, Sleep Apnea/CPAP/BIPAP Additional Past Medical History / Comment(s): Pt recently admitted to [facility] with infected sternal wound/leg blisters post CABG. He currently has a packed wound on his sternum. 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 History of Any Multi-Drug Resistant Organisms: MRSA Date of last positivie culture/infection: 07/22/16 MDRO Source:: Blood Past Surgical History: Cholecystectomy, Coronary Bypass/CABG Additional Past Surgical History / Comment(s): PICC line insertion/removed, bilateral caract removals, COLONOSCOPY, EGD, CANCEROUS SKIN LESIONS REMOVED, TOTAL RIGHT KNEE REPLACEMENT, 06-04-16 QUAD BYPASS Past Anesthesia/Blood Transfusion Reactions: Previous Problems w/ Anesthesia Additional Past Anesthesia/Blood Transfusion Reaction / Comment(s): HAD A HARD TIME COMING OUT OF ANESTHESIA AFTER CHOLECYSTECTOMY Past Psychological History: No Psychological Hx Reported Additional Psychological History / Comment(s): Pt had CABG 06/04/16 and went to [facility] for rehab. He completed rehab and came home. Spouse states he then developed a sternal wound infection/blisters on legs and went back into [facility] and was discharged to [facility] again. He has again returned home. He was ambulating without device. His spouse was driving him to [employer]. 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 Was in the [employer] and was in the [place] [place]. No illnesses when he was there. No animal exposures. There is no family home with his . No extensive travels. Tobacco smoking stopped in 1988. No significant alcohol use Smoking Status: Former smoker Past Alcohol Use History: Occasional Additional Past Alcohol Use History / Comment(s): Pt quit smoking in 1988 Past Drug Use History: None Reported - Past Family History Father Family Medical History: Vascular Disorder Additional Family Medical History / Comment(s): POOR CIRCULATION-HAD AMPUTATIONS D/T POOR CIRCULATION Mother Family Medical History: Cancer General Exam - General Exam Comments Initial Comments: General: The patient is awake and alert, in no distress, and does not appear acutely ill. Eye: Pupils are equal, round and reactive to light, extra-ocular movements are intact. No nystagmus. There is normal conjunctiva bilaterally. No signs of icterus. Ears, nose, mouth and throat: There are moist mucous membranes and no oral lesions. No blood in the posterior pharynx. No active bleeding on the left or right nostril. Neck: The neck is supple, there is no tenderness or JVD. Cardiovascular: There is a regular rate and rhythm. No murmur, rub or gallop is appreciated. Respiratory: Lungs are clear to auscultation, respirations are non-labored, breath sounds are equal. No wheezes, stridor, rales, or rhonchi. Musculoskeletal: Normal ROM, no tenderness. Strength 5/5. Sensation intact. Pulses equal bilaterally 2+. Neurological: A&O x 3. CN II-XII intact, There are no obvious motor or sensory deficits. Coordination appears grossly intact. Speech is normal. Skin: Skin is warm and dry and no rashes or lesions are noted. Psychiatric: Cooperative, appropriate mood & affect, normal judgment. Limitations: no limitations Course Vital Signs 10/25/16 10/25/16 07:44 08:26 Temperature 99.2 F 96.9 F L Pulse Rate 68 62 Respiratory 20 18 Rate Blood Pressure 199/79 149/67 O2 Sat by Pulse 96 Oximetry Medical Decision Making - Medical Decision Making Patient reexamined at this time shows no signs of bleeding. He is been observed here for over an hour in the ER is been up and moving around freely no rebleeding. Posterior pharynx clear. Patient will be discharged home with nasal clams. Advised to cleanse nose for 20 minutes return if bleeding uncontrolled at home. Disposition Clinical Impression: Epistaxis Disposition: HOME SELF-CARE Condition: Good Instructions: Nosebleed (ED) Additional Instructions: Please use nasal clamp the bleeding recurs for 20 minutes. If rebleeding is uncontrolled at home please return here to the emergency room. Please follow- up with ENT as discussed. Please return for any other concerns. Referrals: Martinez Yoo MD [Primary Care Provider] - 1-2 days Sourav Jacobson MD [STAFF PHYSICIAN] - 1-2 days Time of Disposition: 09:15
[2016-10-25 09:38] VITALS: BP 133/59; PULSE 59; RESP 16; TEMP 97.2
== END 2016-10-25 09:26 | disposition home or self-care (01) ==
LOC: EC 07:39
DX: R04.0 Epistaxis (principal); I10 Essential (primary) hypertension; E78.5 Hyperlipidemia, unspecified; M10.9 Gout, unspecified; I25.10 Atherosclerotic heart disease of native coronary artery without angina pectoris; Z95.1 Presence of aortocoronary bypass graft; Z86.14 Personal history of Methicillin resistant Staphylococcus aureus infection; Z85.828 Personal history of other malignant neoplasm of skin; Z87.891 Personal history of nicotine dependence; Z79.82 Long term (current) use of aspirin; Z79.84 Long term (current) use of oral hypoglycemic drugs; Z79.899 Other long term (current) drug therapy
CPT/HCPCS: 99283

== ENCOUNTER 2017-01-11 02:45 | Emergency (ER) | payer MEDICARE ==
[2017-01-11] MEDS ORDERED: NAPROXEN 250 MG TAB PO STA (03:27)
[2017-01-11] MEDS ORDERED: HYDROcodone/APAP 10-325MG 1 EACH TAB PO ONE (03:27)
--- NOTE | 2017-01-11 03:27 | ED ---
General Adult HPI - General Chief complaint: ENT Stated complaint: EAR PAIN POST SURGERY Time Seen by Provider: 01/11/17 03:06 Source: patient, RN notes reviewed, old records reviewed Mode of arrival: ambulatory Limitations: no limitations - History of Present Illness Initial comments: This is a 76-year-old male to ER for evaluation of left ear pain, left sided headache. 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 Symptoms have been going on for 2 days but increasing. No fevers. No other complaints. Patient denies bleeding from the site, patient is taking pain medication at home but with increased pain is concern for abscess - Related Data Home Medications Medication Instructions Recorded Confirmed Ipratropium-Albuterol Nebulize 3 ml INHALATION RT-TID PRN 06/19/16 01/11/17 [Duoneb 0.5 mg-3 mg/3 ml Soln] Pantoprazole [Protonix] 40 mg PO DAILY 06/19/16 01/11/17 Sennosides-Docusate Sodium 2 tab PO DAILY 06/19/16 01/11/17 [Senokot-S] metFORMIN HCL [Glucophage] 500 mg PO BID 06/19/16 01/11/17 Aspirin 325 mg PO HS 07/21/16 01/11/17 Atorvastatin [Lipitor] 40 mg PO HS 07/21/16 01/11/17 Cholecalciferol [Vitamin D3] 1,000 unit PO HS 07/21/16 01/11/17 amLODIPine [Norvasc] 5 mg PO DAILY 07/21/16 01/11/17 Allopurinol [Zyloprim] 150 mg PO HS 07/22/16 01/11/17 Melatonin 1 mg PO HS 07/22/16 01/11/17 Metoprolol Tartrate [Lopressor] 150 mg PO BID 10/25/16 01/11/17 Colchicine [Colcrys] 0.6 mg PO DAILY 01/11/17 01/11/17 Furosemide [Lasix] 40 mg PO DAILY 01/11/17 01/11/17 Psyllium Husk [Metamucil] 0.4 gm PO DAILY PRN 01/11/17 01/11/17 traMADol HCL [Ultram] 50 mg PO Q6HR PRN 01/11/17 01/11/17 Previous Rx's Medication Instructions Recorded Clopidogrel [Plavix] 75 mg PO DAILY tab 06/12/16 Allergies Allergy/AdvReac Type Severity Reaction Status Date / Time No Known Allergies Allergy Verified 01/11/17 02:57 Review of Systems ROS Statement: Those systems with pertinent positive or pertinent negative responses have been documented in the HPI. ROS Other: All systems not noted in ROS Statement are negative. Past Medical History Past Medical History: Coronary Artery Disease (CAD), Cancer, Hyperlipidemia, Hypertension, Musculoskeletal Disorder, Sleep Apnea/CPAP/BIPAP Additional Past Medical History / Comment(s): Pt recently admitted to [facility] with infected sternal wound/leg blisters post CABG. He currently has a packed wound on his sternum. 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: MRSA Date of last positivie culture/infection: 07/22/16 MDRO Source:: Blood Past Surgical History: Cholecystectomy, Coronary Bypass/CABG Additional Past Surgical History / Comment(s): PICC line insertion/removed, bilateral caract removals, COLONOSCOPY, EGD, CANCEROUS SKIN LESIONS REMOVED, TOTAL RIGHT KNEE REPLACEMENT, 06-04-16 QUAD BYPASS Past Anesthesia/Blood Transfusion Reactions: Previous Problems w/ Anesthesia Additional Past Anesthesia/Blood Transfusion Reaction / Comment(s): HAD A HARD TIME COMING OUT OF ANESTHESIA AFTER CHOLECYSTECTOMY Past Psychological History: No Psychological Hx Reported Smoking Status: Former smoker Past Alcohol Use History: Occasional Past Drug Use History: None Reported - Past Family History Father Family Medical History: Vascular Disorder Additional Family Medical History / Comment(s): POOR CIRCULATION-HAD AMPUTATIONS D/T POOR CIRCULATION Mother Family Medical History: Cancer General Exam Limitations: no limitations General appearance: alert, in no apparent distress Head exam: Present: atraumatic, normocephalic, normal inspection Eye exam: Present: normal appearance, PERRL, EOMI. Absent: scleral icterus, conjunctival injection, periorbital swelling ENT exam: Present: normal exam, mucous membranes moist, other (Left ear wound is healing appropriately with good granulation tissue, no surrounding erythema or warmth) Neck exam: Present: normal inspection. Absent: tenderness, meningismus, lymphadenopathy Respiratory exam: Present: normal lung sounds bilaterally. Absent: respiratory distress, wheezes, rales, rhonchi, stridor Cardiovascular Exam: Present: regular rate, normal rhythm, normal heart sounds. Absent: systolic murmur, diastolic murmur, rubs, gallop, clicks GI/Abdominal exam: Present: soft, normal bowel sounds. Absent: distended, tenderness, guarding, rebound, rigid Extremities exam: Present: normal inspection, full ROM, normal capillary refill. Absent: tenderness, pedal edema, joint swelling, calf tenderness Back exam: Present: normal inspection Neurological exam: Present: alert, oriented X3, CN II-XII intact Psychiatric exam: Present: normal affect, normal mood Skin exam: Present: warm, dry, intact, normal color. Absent: rash Course Vital Signs 01/11/17 02:52 Temperature 98.0 F Pulse Rate 64 Respiratory 18 Rate Blood Pressure 194/75 O2 Sat by Pulse 95 Oximetry - Reevaluation(s) Reevaluation #1: 01/11/17 03:45 Patient discussed healing, will follow up with surgeon Medical Decision Making - Medical Decision Making 76 male to the ED with left ear postop from squamous surgery pain. Patient's pain is improved at this time, patient will be discharged home, no signs of infection at this time Disposition Clinical Impression: Postoperative pain Disposition: HOME SELF-CARE Instructions: Earache (ED) Referrals: Martinez Yoo MD [Primary Care Provider] - 1-2 days
[2017-01-11 04:01] VITALS: BP 119/58; PULSE 59; RESP 20; TEMP 97.8
== END 2017-01-11 04:01 | disposition home or self-care (01) ==
LOC: EC 02:45
DX: H92.02 Otalgia, left ear (principal); G89.18 Other acute postprocedural pain; R51 Headache; I25.10 Atherosclerotic heart disease of native coronary artery without angina pectoris; E78.5 Hyperlipidemia, unspecified; I10 Essential (primary) hypertension; M10.9 Gout, unspecified; Z87.891 Personal history of nicotine dependence; Z79.82 Long term (current) use of aspirin; Z79.84 Long term (current) use of oral hypoglycemic drugs; Z79.899 Other long term (current) drug therapy; Z85.828 Personal history of other malignant neoplasm of skin; Z98.61 Coronary angioplasty status; Z98.890 Other specified postprocedural states; Y83.8 Other surgical procedures as the cause of abnormal reaction of the patient, or of later complication, without mention of misadventure at the time of the procedure
CPT/HCPCS: 99283

== ENCOUNTER → 2017-07-09 | Outpatient (CLI) | payer MEDICARE ==
--- NOTE | 2017-07-09 09:48 | US ---
EXAMINATION TYPE: US duplex aorta DATE OF EXAM: 07/09/2017 COMPARISON: US 2011 CLINICAL HISTORY: Z13.6 encounter for screening cardiovascular disease. EXAM MEASUREMENTS: Exam is technically limited by patient body habitus at 308lbs and HT 6'0. Abdominal Aorta: Proximal: 2.1cm Transverse Mid: not visualized Distal: not visualized Bifurcation: not visualized Limitations in imaging are noted. IMPRESSION: Exam is limited by patient body habitus. Consider CT abdomen for better evaluation. No pr oximal abdominal aortic aneurysm evident.
== END | disposition home or self-care (01) ==
LOC: RADUSMAIN 07:22
PROVIDERS: ATTEND Internal Medicine
DX: Z13.6 Encounter for screening for cardiovascular disorders (principal)
CPT/HCPCS: 93979

== ENCOUNTER → 2017-07-22 | Outpatient (CLI) | payer MEDICARE ==
[2017-07-22 15:24] LABS: Blood Urea Nitrogen 26 mg/dL (9-20)
--- NOTE | 2017-07-23 15:06 | CT ---
EXAMINATION TYPE: CT chest abdomen w con DATE OF EXAM: 07/22/2017 INDICATION: Patient complains of difficulty breathing. COMPARISON: 06/19/2016 CT DLP: 2542.7 mGycm CONTRAST: Performed with Oral Contrast and with IV Contrast, patient injected with 80 mL of Omnipaque 300. TECHNIQUE: Axial images at 5 mm thick sections. Reconstructed images in the coronal plane. Delayed images through the kidneys. FINDINGS: CT CHEST: Portion of the thyroid visualized is normal. There is a pleural-based nodule along the mediastinum left measuring 1.8 cm in diameter. This appears better visualized on the current examination at the level of the main pulmonary artery. There is a 1.2 cm pretracheal lymph node. Few scattered small additional lymph nodes are present. The ascending aorta diameter at the level of the main pulmonary artery is 3.9 cm. The main pulmonary artery diameter at the bifurcation is 3.7 cm. Coronary artery calcifications present. CT ABDOMEN: There is an ill-defined density within the mid abdomen. This area measures approximately 6.3 x 2.8 cm size. Series 3 image 77 Portion of this may be volume averaging with adjacent loops of b owel. Contrast within this structure is not evident. This was out of the [id number] on the prior e xams. This was not present on 03/02/2010 CTA of the abdominal aorta. Liver: Normal Spleen: Normal Pancreas: Normal Adrenal glands: The adrenal glands are normal. Gallbladder: Surgically absent Kidneys: No masses are evident. No hydronephrosis is present. Extrarenal pelvis on the left is prese nt. No cysts are present. Delayed images were obtained through the kidneys, which remain unremarkabl e. Aorta: Vascular calcification is within the aorta. Inferior vena cava: Normal. IMPRESSIONS: 1. 1.8 cm mediastinal pleural based nodule at the level of the main pulmonary artery on the left is s omewhat smaller than the prior examination. 2. Resolution of previous pleural effusions and cardiomediastinal junction infiltrate. 3. Ill-defined area within the mid mesenteric abdomen of uncertain etiology. There is a suggestion of some desmoplastic type reaction within this region suspicious for underlying neoplasm. Volume averag ing with adjacent loops of bowel make evaluation of this area difficult. Consider additional workup.
== END ==
LOC: RADCTMAIN 14:38
PROVIDERS: ATTEND Internal Medicine
DX: R91.1 Solitary pulmonary nodule (principal)
CPT/HCPCS: 82565; 84520; 71260; 74160; 36415; Q9967

== ENCOUNTER 2017-09-24 09:04 | Day surgery (SDC) | payer MEDICARE ==
[2017-09-22 10:15] VITALS: BMI 42.0
--- NOTE | 2017-09-24 07:36 | P.GSHP ---
History of Present Illness H&P Date: 09/24/17 CHIEF COMPLAINT: GERD and colon screen HISTORY OF PRESENT ILLNESS: The patient is a 77-year-old male who presents with gastroesophageal reflux disease and need for colon screen. Upper and lower endoscopy were offered for further evaluation and management. PAST MEDICAL HISTORY: Please see list. PAST SURGICAL HISTORY: Please see list. MEDICATIONS: Please see list. ALLERGIES: Please see list. SOCIAL HISTORY: No illicit drug use FAMILY HISTORY: No reports of Crohn disease or ulcerative colitis. REVIEW OF ORGAN SYSTEMS: CONSTITUTIONAL: No reports of fevers or chills. GI: Denies any blood in stools or constipation. PHYSICAL EXAM: VITAL SIGNS: Stable GENERAL: Well-developed pleasant in no acute distress. HEENT: No scleral icterus. Extraocular movements grossly intact. Moist buccal mucosa. NECK: Supple without lymphadenopathy. CHEST: Unlabored respirations. Equal bilateral excursions. CARDIOVASCULAR: Regular rate and rhythm. Distal 2+ pulses. ABDOMEN: Soft, nondistended. MUSCULOSKELETAL: No clubbing, cyanosis, or edema. ASSESSMENT: 1. Gastroesophageal reflux disease 2. Colon screen. PLAN: 1. Recommend proceeding with an upper and lower endoscopy Past Medical History Past Medical History: Coronary Artery Disease (CAD), Cancer, Diabetes Mellitus, GERD/Reflux, Hyperlipidemia, Hypertension, Myocardial Infarction (LA), Musculoskeletal Disorder, Osteoarthritis (OA), Sleep Apnea/CPAP/BIPAP Additional Past Medical History / Comment(s): SKIN CANCER , GOUT CHRONIC BACK, SKIN LESIONS , Last Myocardial Infarction Date:: MAY 2016 History of Any Multi-Drug Resistant Organisms: MRSA Date of last positivie culture/infection: 07/22/16 MDRO Source:: LOWER LEGS Past Surgical History: Cholecystectomy, Coronary Bypass/CABG, Heart Catheterization Additional Past Surgical History / Comment(s): PICC line insertion/removed, bilateral caract removals, COLONOSCOPY, EGD, CANCEROUS SKIN LESIONS REMOVED, TOTAL RIGHT KNEE REPLACEMENT, 06-04-16 QUAD BYPASS Past Anesthesia/Blood Transfusion Reactions: Previous Problems w/ Anesthesia Additional Past Anesthesia/Blood Transfusion Reaction / Comment(s): HAD A HARD TIME COMING OUT OF ANESTHESIA AFTER CHOLECYSTECTOMY Smoking Status: Former smoker - Past Family History Father Family Medical History: Vascular Disorder Additional Family Medical History / Comment(s): POOR CIRCULATION-HAD AMPUTATIONS D/T POOR CIRCULATION Mother Family Medical History: Cancer Additional Family Medical History / Comment(s): STOMACH CANCER Medications and Allergies Home Medications Medication Instructions Recorded Confirmed Type Pantoprazole [Protonix] 40 mg PO DAILY 06/19/16 09/22/17 History metFORMIN HCL [Glucophage] 500 mg PO BID 06/19/16 09/22/17 History Atorvastatin [Lipitor] 40 mg PO HS 07/21/16 09/22/17 History amLODIPine [Norvasc] 5 mg PO DAILY 07/21/16 09/22/17 History Allopurinol [Zyloprim] 150 mg PO DAILY 07/22/16 09/22/17 History Melatonin 1 mg PO HS PRN 07/22/16 09/22/17 History Metoprolol Tartrate [Lopressor] 150 mg PO BID 10/25/16 09/22/17 History Furosemide [Lasix] 40 mg PO DAILY 01/11/17 09/22/17 History Psyllium Husk [Metamucil] 0.4 gm PO DAILY PRN 01/11/17 09/22/17 History traMADol HCL [Ultram] 50 mg PO Q6HR PRN 01/11/17 09/22/17 History Allergies Allergy/AdvReac Type Severity Reaction Status Date / Time No Known Allergies Allergy Verified 09/22/17 09:40
[~2017-09-24 09:04] MED LIST: LACTATED RINGERS 1,000 ML IV SCH
[2017-09-24 10:52] VITALS: TEMP 98.5
[2017-09-24 11:32] LABS: Glucose,Whole Blood 101 mg/dL (75-99)
[2017-09-24] MEDS ORDERED: fentaNYL (PF) 50 MCG/ML 2 ML AMP ONE (11:35)
[2017-09-24] MEDS ORDERED: LIDOCAINE 1% INJ 10MG/ML (20 ML MDV) ONE (11:35)
[2017-09-24] MEDS ORDERED: PROPOFOL 10 MG/ML 20 ML VIAL IV ONE (11:35)
[2017-09-24 12:19] VITALS: RESP 18
[2017-09-24 13:02] VITALS: BP 168/74; PULSE 72
[2017-09-24 13:06] LABS: Glucose,Whole Blood 121 mg/dL (75-99)
--- NOTE | 2017-10-01 10:41 | P.PCN ---
Date of Procedure: 09/24/17 Description of Procedure: PREOPERATIVE DIAGNOSIS: History of intra-abdominal malignancy Abnormal MRI of the abdomen Morbid obesity due to excess calories POSTOPERATIVE DIAGNOSIS: History of intra-abdominal malignancy Abnormal MRI of the abdomen Morbid obesity due to excess calories OPERATION: Esophagogastroduodenoscopy SURGEON: Dana Morales MD ANESTHESIA: MAC. INDICATIONS: The patient is a 77-year-old male who presents with intra-abdominal malignancy. Benefits and risks of the procedure were described. Informed consent was obtained. DESCRIPTION: The patient was brought into the endoscopy suite and laid in the left lateral decubitus position. An Olympus gastroscope was passed along the posterior oropharynx down to the distal esophagus where the squamocolumnar junction was encountered at 45 cm from the incisors. The stomach was entered and no bile reflux was found. Additional findings are listed below. The first through third portion of the duodenum was examined and unremarkable. Retroflexion of the scope confirmed Hill grade 2 lower esophageal valve. The squamocolumnar junction demostrated LA grade A erosive esophagitis. The stomach was desufflated. The patient tolerated the procedure well. FINDINGS: Squamocolumnar junction 45 cm from the incisors. Diaphragmatic hiatus at 45 cm. Hill grade 2 lower esophageal valve. LA grade A erosive esophagitis. No active duodenitis. No active superficial gastritis. RECOMMENDATIONS: Upper endoscopy as needed.
--- NOTE | 2017-10-01 10:46 | P.PCN ---
Date of Procedure: 09/24/17 Description of Procedure: PREOPERATIVE DIAGNOSIS: Colonoscopy screening. Personal history of colon polyps. POSTOPERATIVE DIAGNOSIS: Colonoscopy screening. Personal history of colon polyps. Multiple tubular adenomas throughout the colon. Scattered diverticulosis. OPERATION: Colonoscopy to the ileocecal valve and appendiceal orifice. Colonoscopy with multiple cold forceps biopsies. SURGEON: Dana Morales MD. ANESTHESIA: MAC. INDICATIONS: The patient is a 77-year-old male who presents intra-abdominal malignancy. Benefits and risks were described and informed consent was obtained. DESCRIPTION OF PROCEDURE: The patient had undergone Gatorade, MiraLAX and Dulcolax prep. He had been brought into the operating room and laid in the left lateral decubitus position. After adequate intravenous sedation, the rectum was examined with 2% lidocaine jelly. The prostate was smooth and without abnormality. External hemorrhoids were encountered. The rectal tone was within normal limits. No lesions were palpated in the rectal vault. An Olympus colonoscope was advanced until the ileocecal valve and appendiceal orifice were clearly viewed. The prep was fair with visualization of the mucosal folds. The scope was removed with visualization of each mucosal fold. Scattered diverticulosis was encountered. Multiple colonic polyps were found. No evidence of focal colitis was found. Retroflexion of the scope demonstrated no grade 1 internal hemorrhoids without active bleeding or inflammation. The colon was desufflated. The patient had tolerated the procedure well. Withdrawal time was over 6 minutes. FINDINGS: No internal hemorrhoids. No external hemorrhoids. No arteriovenous malformations. Removal of 3 polyps: - Cold forceps biopsy at cecum, 4 mm polyp. - Cold forceps biopsy at ascending colon, 5 mm polyp. - Cold forceps biopsy at mid transverse colon, 4 mm polyp. Multiple diverticulosis. No focal colitis. RECOMMENDATIONS: Given severity of tubular adenomas, recommend repeat colonoscopy in 3 years, 2020. Plan - Discharge Summary New Discharge Prescriptions: No Action Pantoprazole [Protonix] 40 mg PO DAILY metFORMIN HCL [Glucophage] 500 mg PO BID amLODIPine [Norvasc] 5 mg PO DAILY Atorvastatin [Lipitor] 40 mg PO HS Allopurinol [Zyloprim] 150 mg PO DAILY Melatonin 1 mg PO HS PRN PRN Reason: SLEEP Metoprolol Tartrate [Lopressor] 150 mg PO BID traMADol HCL [Ultram] 50 mg PO Q6HR PRN PRN Reason: Pain Psyllium Husk [Metamucil] 0.4 gm PO DAILY PRN PRN Reason: Constipation Furosemide [Lasix] 40 mg PO DAILY Discharge Medication List Pantoprazole [Protonix] 40 mg PO DAILY 06/19/16 [History] metFORMIN HCL [Glucophage] 500 mg PO BID 06/19/16 [History] Atorvastatin [Lipitor] 40 mg PO HS 07/21/16 [History] amLODIPine [Norvasc] 5 mg PO DAILY 07/21/16 [History] Allopurinol [Zyloprim] 150 mg PO DAILY 07/22/16 [History] Melatonin 1 mg PO HS PRN 07/22/16 [History] Metoprolol Tartrate [Lopressor] 150 mg PO BID 10/25/16 [History] Furosemide [Lasix] 40 mg PO DAILY 01/11/17 [History] Psyllium Husk [Metamucil] 0.4 gm PO DAILY PRN 01/11/17 [History] traMADol HCL [Ultram] 50 mg PO Q6HR PRN 01/11/17 [History] Follow up Appointment(s)/Referral(s): Dana Morales MD [STAFF PHYSICIAN] - 10/14/17 Patient Instructions/Handouts: *Surgery [facility] - (Anesthesia) Endoscopy Discharge Instructions, Colonoscopy (DC), Upper Endoscopy (DC), Colorectal Polyps (GEN) Discharge Disposition: HOME SELF-CARE
== END 2017-09-24 12:40 | disposition home or self-care (01) ==
LOC: ORWHC2ENDO 09:04
PROVIDERS: ATTEND Surgery Plastic and Reconstructive Surgery
DX: Z12.11 Encounter for screening for malignant neoplasm of colon (principal); D12.2 Benign neoplasm of ascending colon; D12.3 Benign neoplasm of transverse colon; K57.90 Diverticulosis of intestine, part unspecified, without perforation or abscess without bleeding; K22.10 Ulcer of esophagus without bleeding; K21.9 Gastro-esophageal reflux disease without esophagitis; Z86.010 Personal history of colon polyps; E66.01 Morbid (severe) obesity due to excess calories; Z68.41 Body mass index [BMI] 40.0-44.9, adult; I25.10 Atherosclerotic heart disease of native coronary artery without angina pectoris; E11.9 Type 2 diabetes mellitus without complications; Z79.84 Long term (current) use of oral hypoglycemic drugs; E78.5 Hyperlipidemia, unspecified; I10 Essential (primary) hypertension; I25.2 Old myocardial infarction; M19.90 Unspecified osteoarthritis, unspecified site; G47.30 Sleep apnea, unspecified; Z99.89 Dependence on other enabling machines and devices; M79.9 Soft tissue disorder, unspecified; M10.9 Gout, unspecified; Z85.828 Personal history of other malignant neoplasm of skin; Z86.14 Personal history of Methicillin resistant Staphylococcus aureus infection; Z95.1 Presence of aortocoronary bypass graft; Z87.891 Personal history of nicotine dependence; Z79.899 Other long term (current) drug therapy
CPT/HCPCS: 88305; 45380; 43235; J2001; J3010; J2704

== ENCOUNTER → 2017-11-01 | Outpatient (CLI) | payer MEDICARE ==
--- NOTE | 2017-11-01 17:25 | PE ---
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 Images are reviewed on the computer in the coronal, a xial, and sagittal planes. Reconstructed rotating images are created on independent workstation and reviewed on the computer. A noncontrast CT is performed in conjunction with the PET scan. SCAN: Initial Scan FINDINGS: SKULL BASE AND NECK: No suspicious hypermetabolic uptake is seen. CHEST, MEDIASTINUM, AND HILAR REGION: No suspicious hypermetabolic uptake is noted. ABDOMEN AND PELVIS: Evaluation is suboptimal due to patient's large body habitus and streak artifact from adjacent upper extremities. In the right posterior mid to lower abdomen there is oval soft tissu e mass measuring roughly 7.3 x 5.8 cm on axial image 161 with heterogeneous mild hypermetabolic uptak e, max SUV values is 5.95. Craniocaudal dimension of mass is roughly 8.2 cm. This appears to have enl arged from Erum CT study. Smaller nodules seen on diagnostic CT are less well seen on current study, significant artifact is no william. OSSEOUS STRUCTURES: No suspicious hypermetabolic uptake is seen. OTHER CT: There is moderate to severe calcified plaque at both carotid bulbs which have medial course . There is moderate to severe glenohumeral joint arthropathy bilaterally. Post CABG changes with mediastinal clips and sternal wires is redemonstrated. Cholecystectomy clips are redemonstrated. Fairly moderate to severe calcified plaque of aorta extending into branch vessels is redemonstrated. There are diverticula suspected in the sigmoid colon. Scattered pelvic phleboliths are noted. Prostate gland is felt enlarged bulging on bladder base, unde rlying BPH is suspected. Correlate clinically. There is moderate to severe multilevel spurring in the thoracolumbar spine with multilevel disc space narrowing. There is moderate to severe joint space loss in both hips. IMPRESSION: Suboptimal study, there is heterogeneous slightly hypermetabolic uptake in biopsy-proven mass or lymphoma right midabdomen. There is no evidence of lymphoma involvement above the diaphragm.
== END | disposition home or self-care (01) ==
LOC: RADPETMAIN 13:58
PROVIDERS: ATTEND Internal Medicine Hematology & Oncology
DX: C96.Z Other specified malignant neoplasms of lymphoid, hematopoietic and related tissue (principal)
CPT/HCPCS: 78815; A9552

== ENCOUNTER 2017-11-12 13:43 | Emergency (ER) | payer MEDICARE ==
--- NOTE | 2017-11-12 15:11 | ED ---
Male Urogenital HPI - General Chief complaint: Urogenital Stated complaint: post op trouble urinating Time Seen by Provider: 11/12/17 14:49 Source: patient, RN notes reviewed Mode of arrival: ambulatory Limitations: no limitations - History of Present Illness Initial comments: This is a 77-year-old male who presents to the emergency department with chief complaint of difficulty urinating. 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 Patient states that the last time he urinated was before surgery yesterday. He states that since that time he has only been dribbling. He denies any pain or discomfort in the suprapubic area. He states he is tender over surgical incision site. He does state that he has been having episodes of dribbling and was able to urinate about "the size of a shot glass." Denies fever, chills, chest pain, shortness of breath, nausea or vomiting, constipation or diarrhea, numbness or tingling, headache or vision changes. - Related Data Home Medications Medication Instructions Recorded Confirmed Pantoprazole [Protonix] 40 mg PO DAILY 06/19/16 09/24/17 metFORMIN HCL [Glucophage] 500 mg PO BID 06/19/16 09/24/17 Atorvastatin [Lipitor] 40 mg PO HS 07/21/16 09/24/17 amLODIPine [Norvasc] 5 mg PO DAILY 07/21/16 09/24/17 Allopurinol [Zyloprim] 150 mg PO DAILY 07/22/16 09/24/17 Melatonin 1 mg PO HS PRN 07/22/16 09/24/17 Metoprolol Tartrate [Lopressor] 150 mg PO BID 10/25/16 09/24/17 Furosemide [Lasix] 40 mg PO DAILY 01/11/17 09/24/17 Psyllium Husk [Metamucil] 0.4 gm PO DAILY PRN 01/11/17 09/24/17 traMADol HCL [Ultram] 50 mg PO Q6HR PRN 01/11/17 09/24/17 Allergies Allergy/AdvReac Type Severity Reaction Status Date / Time No Known Allergies Allergy Verified 09/24/17 10:51 Review of Systems ROS Statement: Those systems with pertinent positive or pertinent negative responses have been documented in the HPI. ROS Other: All systems not noted in ROS Statement are negative. Past Medical History Past Medical History: Coronary Artery Disease (CAD), Cancer, Diabetes Mellitus, GERD/Reflux, Hyperlipidemia, Hypertension, Myocardial Infarction (IA), Musculoskeletal Disorder, Osteoarthritis (OA), Sleep Apnea/CPAP/BIPAP Additional Past Medical History / Comment(s): SKIN CANCER , GOUT CHRONIC BACK, SKIN LESIONS , Last Myocardial Infarction Date:: MAY 2016 History of Any Multi-Drug Resistant Organisms: MRSA Date of last positivie culture/infection: 07/22/16 MDRO Source:: LOWER LEGS Past Surgical History: Cholecystectomy, Coronary Bypass/CABG, Heart Catheterization Additional Past Surgical History / Comment(s): PICC line insertion/removed, bilateral caract removals, COLONOSCOPY, EGD, CANCEROUS SKIN LESIONS REMOVED, TOTAL RIGHT KNEE REPLACEMENT, 06-04-16 QUAD BYPASS Past Anesthesia/Blood Transfusion Reactions: Previous Problems w/ Anesthesia Additional Past Anesthesia/Blood Transfusion Reaction / Comment(s): HAD A HARD TIME COMING OUT OF ANESTHESIA AFTER CHOLECYSTECTOMY Past Psychological History: No Psychological Hx Reported Smoking Status: Former smoker Past Alcohol Use History: None Reported Past Drug Use History: None Reported - Past Family History Father Family Medical History: Vascular Disorder Additional Family Medical History / Comment(s): POOR CIRCULATION-HAD AMPUTATIONS D/T POOR CIRCULATION Mother Family Medical History: Cancer Additional Family Medical History / Comment(s): STOMACH CANCER General Exam - General Exam Comments Initial Comments: General: Awake and alert, well-developed; in no apparent distress. is at bedside. HEENT: Head atraumatic, normocephalic. Pupils are equal, round and reactive to light. Extraocular movements intact. Oropharynx moist without erythema or exudate. Neck: Supple. Normal ROM. Cardiovascular: Regular rate and rhythm. No murmurs, rubs or gallops. Chest symmetrical. Respiratory: Lungs clear to auscultation bilaterally. No wheezes, rales or rhonchi. Normal respiratory effort with no use of accessory muscles. Abdomen: Soft, non-distended. Normal bowel sounds in all 4 quadrants. Incision site dressing in place at mid-abdomen. Musculoskeletal: Normal ROM, no tenderness bilateral upper and lower extremities. Skin: [place], warm and dry without rashes or lesions. Neurological: Alert and oriented x3. CN II-XII grossly intact. Speech is fluent and answers are appropriate. No focal neuro deficits. Psychiatric: Normal mood and affect. No overt signs of depression or anxiety noted. Limitations: no limitations Course Vital Signs 11/12/17 14:41 Temperature 98.3 F Pulse Rate 78 Respiratory 18 Rate Blood Pressure 163/60 O2 Sat by Pulse 95 Oximetry Medical Decision Making - Medical Decision Making This is a 77-year-old male who presented to the emergency department with chief complaint of difficulty urinating. Patient had a laparotomy performed yesterday at [place] where intra-abdominal tumor was biopsied. Patient states that he has not urinated since before surgery yesterday. A Bosch catheter was inserted and there was an output of 700 mL. Patient states that he does not want to drive all the way to [place] to follow up for this urinary retention. He will be given contact information for follow-up with local urology. Patient' s vital signs are stable and he is in no acute distress. He will be discharged home at this time. Recommended following up with urology within 1-2 days. Patient is in agreement with plan and voices understanding. All questions are answered. Disposition Clinical Impression: Acute retention of urine Disposition: HOME SELF-CARE Condition: Good Instructions: Urinary Retention in Men (ED) Additional Instructions: Please follow-up with Dr. Velazquez, urology within 1-2 days. Please follow up with primary care provider within 1-2 days. Return to emergency department if symptoms should worsen or any concerns arise. Is patient prescribed a controlled substance at d/c from ED?: No Referrals: Martinez Yoo MD [Primary Care Provider] - 1-2 days Shaq Velazquez MD [STAFF PHYSICIAN] - 1-2 days Time of Disposition: 15:30
[2017-11-12 15:59] VITALS: BP 154/63; PULSE 72; RESP 16; TEMP 98.2
== END 2017-11-12 15:57 | disposition home or self-care (01) ==
LOC: EC 13:43
DX: R33.9 Retention of urine, unspecified (principal); I25.10 Atherosclerotic heart disease of native coronary artery without angina pectoris; E11.9 Type 2 diabetes mellitus without complications; K21.9 Gastro-esophageal reflux disease without esophagitis; E78.5 Hyperlipidemia, unspecified; I25.2 Old myocardial infarction; I10 Essential (primary) hypertension; M10.9 Gout, unspecified; Z98.890 Other specified postprocedural states; Z86.14 Personal history of Methicillin resistant Staphylococcus aureus infection; Z95.1 Presence of aortocoronary bypass graft; Z79.84 Long term (current) use of oral hypoglycemic drugs; Z79.899 Other long term (current) drug therapy; Z87.891 Personal history of nicotine dependence
CPT/HCPCS: 51702; 99283

== ENCOUNTER → 2017-11-21 | Outpatient (CLI) | payer MEDICARE ==
--- NOTE | 2017-11-21 11:49 | ECHOF ---
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 This was a technically difficult study with suboptimal views. The left ventricular size is normal. There is mild concentric left ventricular hypertrophy. Overa ll left ventricular systolic function is normal with, an EF between 55 - 60 %. The right ventricle is normal in size and function. The left atrium is normal in size. The right atrium is normal in size. Lumason used The aortic valve is trileaflet and appears structurally normal. There is trace mitral regurgitation. Trace tricuspid regurgitation present. The right ventricular systolic pressure, as measured by Dopp ler, is 28.30mmHg. The pulmonic valve was not well visualized. The aortic root size is normal. The pericardium is normal. CONCLUSIONS -------- 1. Sinus rhythm. 2. This was a technically difficult study with suboptimal views. 3. The left ventricular size is normal. 4. There is mild concentric left ventricular hypertrophy. 5. Overall left ventricular systolic function is normal with, an EF between 55 - 60 %. 6. The right ventricle is normal in size and function. 7. The left atrium is normal in size. 8. The right atrium is normal in size. 9. Lumason used 10. The aortic valve is trileaflet and appears structurally normal. 11. There is trace mitral regurgitation. 12. Trace tricuspid regurgitation present. 13. The right ventricular systolic pressure, as measured by Doppler, is 28.30mmHg. 14. The pulmonic valve was not well visualized. 15. The aortic root size is normal. 16. The pericardium is normal. JOB SERVICE SPECIALIST: Chaya Clark RDCS
== END | disposition home or self-care (01) ==
LOC: RADECHMAIN 11:03
PROVIDERS: ATTEND Internal Medicine Hematology & Oncology
DX: Z01.810 Encounter for preprocedural cardiovascular examination (principal); I51.7 Cardiomegaly; C83.33 Diffuse large B-cell lymphoma, intra-abdominal lymph nodes
CPT/HCPCS: 93306; Q9950

== ENCOUNTER → 2017-12-03 | Outpatient (CLI) | payer MEDICARE ==
--- NOTE | 2017-12-03 11:54 | XR ---
EXAMINATION TYPE: XR chest 2V DATE OF EXAM: 12/03/2017 COMPARISON: Prior chest x-ray dated 07/23/2016, chest CT 07/22/2017 HISTORY: Shortness of breath, lymphoma TECHNIQUE: Frontal and lateral views of the chest are obtained. FINDINGS: There is been interval placement of a left subclavian central venous port, the distal tip of the port may be within the superior vena cava or possibly mediastinal vein. There is no evident pn eumothorax. Patchy basilar density is present, patient is post median sternotomy. Heart remains enlar ged. No pneumothorax. Aorta is dense. IMPRESSION: Probable basilar atelectasis. Postop changes, catheter tip as described, cardiomegaly. F ollow-up as indicated.
== END | disposition home or self-care (01) ==
LOC: RADXRMAIN 11:36
PROVIDERS: ATTEND Nurse Practitioner Adult Health
DX: I51.7 Cardiomegaly (principal); C83.33 Diffuse large B-cell lymphoma, intra-abdominal lymph nodes; I10 Essential (primary) hypertension; E78.5 Hyperlipidemia, unspecified; Z95.9 Presence of cardiac and vascular implant and graft, unspecified; Z71.3 Dietary counseling and surveillance
CPT/HCPCS: 71046

== ENCOUNTER → 2018-01-15 | Outpatient (CLI) | payer MEDICARE ==
--- NOTE | 2018-01-16 10:08 | ECHOF ---
Referral Reason:C83.33 Z01.818 MEASUREMENTS -------- HEIGHT: 180.3 cm WEIGHT: 145.1 kg BP: IVSd: 1.3 cm (0.6 - 1.1) LVIDd: 5.1 cm (3.9 - 5.3) LVPWd: 1.2 cm (0.6 - 1.1) IVSs: 1.6 cm LVIDs: 3.2 cm LVPWs: 1.5 cm LAESV Index (A-L): 31.02 ml/m Ao Diam: 3.7 cm (2.0 - 3.7) AV Cusp: 1.8 cm (1.5 - 2.6) LA Diam: 3.5 cm (2.7 - 3.8) MV E Mike: 1.21 m/s MV DecT: 245 ms MV A Mike: 1.19 m/s MV E/A Ratio: 1.02 RAP: 5.00 mmHg RVSP: 53.18 mmHg MV EF SLOPE: 138.87 mm/s (70 - 150) MV EXCURSION: 2.45 cm (> 18.000) FINDINGS -------- Sinus rhythm. This was a technically difficult study with suboptimal views. The left ventricular size is normal. There is mild concentric left ventricular hypertrophy. Overa ll left ventricular systolic function is normal with, an EF between 55 - 60 %. The RV was not well visualized. LA is midly dilated 29-33ml/m2. The right atrium was not well visualized. 3ml of Lumason was utilized for enhancement of images. There is mild aortic valve sclerosis. There is no evidence of aortic regurgitation. There is no e vidence of aortic stenosis. The mitral valve leaflets are mildly thickened. Mild mitral regurgitation is present. Mild tricuspid regurgitation present. There is mild pulmonary hypertension. The right ventricular systolic pressure, as measured by Doppler, is 53.18mmHg. The pulmonic valve was not well visualized. The aortic root size is normal. Normal inferior vena cava with normal inspiratory collapse consistent with estimated right atrial pre ssure of 5 mmHg. There is no pericardial effusion. CONCLUSIONS -------- 1. Sinus rhythm. 2. This was a technically difficult study with suboptimal views. 3. The left ventricular size is normal. 4. There is mild concentric left ventricular hypertrophy. 5. Overall left ventricular systolic function is normal with, an EF between 55 - 60 %. 6. The RV was not well visualized. 7. LA is midly dilated 29-33ml/m2. 8. The right atrium was not well visualized. 9. 3ml of Lumason was utilized for enhancement of images. 10. There is mild aortic valve sclerosis. 11. The mitral valve leaflets are mildly thickened. 12. Mild mitral regurgitation is present. 13. Mild tricuspid regurgitation present. 14. There is mild pulmonary hypertension. 15. The right ventricular systolic pressure, as measured by Doppler, is 53.18mmHg. 16. The pulmonic valve was not well visualized. 17. The aortic root size is normal. 18. There is no pericardial effusion. AIRCRAFT MACHINIST HELPER: Rylan Bueno RDCS
== END | disposition home or self-care (01) ==
LOC: RADECHMAIN 14:55
PROVIDERS: ATTEND Internal Medicine Hematology & Oncology
DX: Z01.818 Encounter for other preprocedural examination (principal); C83.33 Diffuse large B-cell lymphoma, intra-abdominal lymph nodes; I08.3 Combined rheumatic disorders of mitral, aortic and tricuspid valves
CPT/HCPCS: C8929; J1642; Q9950; 93306

== ENCOUNTER → 2018-01-24 | Outpatient (CLI) | payer MEDICARE ==
--- NOTE | 2018-01-24 12:58 | PE ---
EXAMINATION TYPE: PET CT fusion skull to thigh DATE OF EXAM: 01/24/2018 COMPARISON: Prior PET/CT November 01, 2017. CT chest and abdomen July 22, 2017. HISTORY: History of lymphoma diagnosed in abdomen September 2017 completed chemotherapy January 07, 2018 TECHNIQUE: Following the intravenous administration of 12.068 mCi of F-18 FDG, whole body images are performed from the skull base to the midthigh. Images are reviewed on the computer in the coronal, axial, and sagittal planes. Reconstructed rotating images are created on independent workstation and reviewed on the computer. A noncontrast CT is performed in conjunction with the PET scan. SCAN: Subsequent Scan FINDINGS: MEAN SUV MEDIASTINUM: 1.74 MEAN SUV LIVER: 3.34 SKULL BASE AND NECK: No suspicious hypermetabolic uptake is present. CHEST, MEDIASTINUM, AND HILAR REGION: No suspicious hypermetabolic uptake is present. ABDOMEN AND PELVIS: CT exam is suboptimal due to significant artifact related to patient's body habit us and scanning through adjacent upper extremities similar to prior PET/CT. There is persistent centr al mid abdominal soft tissue mass measuring roughly 7.5 x 4.7 cm axial image 167 without hypermetabol ic uptake. No significant change in size from prior PET/CT but enlarged from original PET/CT as noted on prior PET/CT report. Smaller adjacent nodules with mesenteric fat stranding seen on the diagnosti c CT are less well-seen on current PET/CT similar to prior. There is single subcentimeter hypermetabolic focus deep liver with max SUV 5.31 on axial image [address] correlate, this area can be followed. No suspicious areas of hypermetabolic uptake are present. Normal bowel and bladder uptake is seen. OSSEOUS STRUCTURES: No new areas of suspicious hypermetabolic uptake are present. OTHER CT: There is moderate to severe calcified plaque at both carotid bulbs redemonstrated which hav e medial course unchanged from prior. There is moderate to severe glenohumeral joint arthropathy bilaterally redemonstrated. Post CABG changes with mediastinal clips and sternal wires is redemonstrated. Cardiomegaly is again s een. Cholecystectomy clips are redemonstrated. Some generalized mild fat replaced atrophy of pancreas is p resent. Fairly moderate to severe calcified plaque of aorta extending into branch vessels is redemonstrated. There are scattered diverticula in the sigmoid colon. Scattered pelvic phleboliths are noted. Prostate gland is felt enlarged bulging on bladder base, unde rlying BPH is suspected. Correlate clinically. There is moderate to severe multilevel spurring in the thoracolumbar spine with multilevel disc space narrowing. There is moderate to severe joint space loss in both hips. IMPRESSION: No abnormal hypermetabolic uptake in right mid abdominal malignancy or lymphoma on curren t study consistent with positive treatment response. Overall size is stable. New nonspecific subcenti meter hypermetabolic liver focus is noted and can be followed. No convincing evidence of new hypermet abolic adenopathy or metastatic disease elsewise. EORTC Response Criteria: Complete Metabolic Response. MaxSUV <2.5 or equivalent to background Partial Metabolic Response. Primary Tumor Response WHO Category: NC: No Change.
== END | disposition home or self-care (01) ==
LOC: RADPETMAIN 07:24
PROVIDERS: ATTEND Internal Medicine Hematology & Oncology
DX: R93.2 Abnormal findings on diagnostic imaging of liver and biliary tract (principal); C83.33 Diffuse large B-cell lymphoma, intra-abdominal lymph nodes
CPT/HCPCS: 78815; A9552

== ENCOUNTER → 2018-04-25 | Outpatient (CLI) | payer MEDICARE ==
--- NOTE | 2018-04-25 16:46 | PE ---
EXAMINATION TYPE: PET CT fusion skull to thigh DATE OF EXAM: 04/25/2018 COMPARISON: PET/CT January 24, 2018 and older studies November 01, 2017 HISTORY: Lymphoma progress study completed chemotherapy March 11. TECHNIQUE: Following the intravenous administration of 12.347 mCi of F-18 FDG, whole body images are performed from the skull base to the midthigh. Images are reviewed on the computer in the coronal, axial, and sagittal planes. Reconstructed rotating images are created on independent workstation and reviewed on the computer. A noncontrast CT is performed in conjunction with the PET scan. SCAN: Subsequent Scan FINDINGS: Exam noted suboptimal due to artifact related to patient's large body habitus. AVERAGE SUV MEDIASTINUM: 1.42 AVERAGE SUV LIVER: 3.16 SKULL BASE AND NECK: No new areas of suspicious hypermetabolic uptake are seen CHEST, MEDIASTINUM, AND HILAR REGION: No new areas of suspicious hypermetabolic uptake are present. ABDOMEN AND PELVIS: There is redemonstration of central mediastinal masses, reference or largest mass measures roughly 8.3 x 4.0 cm on axial image 168 and remains ametabolic, no significant change from most recent CT. No areas of new hypermetabolic uptake are present. Scattered small soft tissue nodule s remain present. Significant artifact degradation related to patient's body habitus and artifact fro m adjacent upper extremities is once again noted. No suspicious areas of hypermetabolic uptake in the liver are present. Scattered bowel uptake is redemonstrated. OSSEOUS STRUCTURES: No new suspicious hypermetabolic uptake is present. OTHER CT: There is moderate to severe calcified plaque at both carotid bulbs redemonstrated which hav e medial course unchanged from prior. There is moderate to severe glenohumeral joint arthropathy bilaterally redemonstrated. Post CABG changes with mediastinal clips and sternal wires is redemonstrated. Cardiomegaly is again s een. There is stable left subclavian Mediport catheter terminating in SVC. Cholecystectomy clips are redemonstrated. Some generalized mild fat replaced atrophy of pancreas is present. Fairly moderate to severe calcified plaque of aorta extending into branch vessels is redemonstrated. There are scattered diverticula in the sigmoid colon. Scattered pelvic phleboliths are noted. Prostate gland is redemonstrated enlarged bulging on bladder base, underlying BPH is suspected. Correlate clinically. Adjacent pelvic phleboliths are redemonstrat ed. There is moderate to severe multilevel spurring in the thoracolumbar spine with multilevel disc space narrowing. There is moderate to severe joint space loss in both hips. IMPRESSION: Suboptimal study, largest midabdominal lesion stable in size and appearance. No new areas of abnormal hypermetabolic uptake identified. EORTC Response Criteria: Complete Metabolic Response. MaxSUV <2.5 or equivalent to background Primary Tumor Response WHO Category: NC: No Change.
== END | disposition home or self-care (01) ==
LOC: RADPETMAIN 09:42
PROVIDERS: ATTEND Internal Medicine Hematology & Oncology
DX: C83.33 Diffuse large B-cell lymphoma, intra-abdominal lymph nodes (principal)
CPT/HCPCS: 78815; A9552

== ENCOUNTER 2018-07-11 02:05 | Emergency (ER) | payer MEDICARE ==
[2018-07-11 02:14] VITALS: RESP 18
[2018-07-11] MEDS ORDERED: SODIUM CHLORIDE 0.9% 500 ML 500 ML IV STA (02:25)
[2018-07-11] MEDS ORDERED: ONDANSETRON 4 MG/2 ML VIAL IVP STA (02:25)
--- NOTE | 2018-07-11 02:36 | ED ---
General Adult HPI - General Source: patient, family, EMS, RN notes reviewed Mode of arrival: EMS Limitations: no limitations <Tonio Franklin - Last Filed: 07/11/18 04:08> <Joe Sanabria - Last Filed: 07/15/18 09:35> - General Chief complaint: Nausea/Vomiting/Diarrhea Stated complaint: Vomiting Time Seen by Provider: 07/11/18 02:09 - History of Present Illness Initial comments: Patient is a 78-year-old male presenting to the emergency room today by EMS, with chief complaint of symptoms of nausea vomiting started earlier tonight. He admits that approximately 6 hours ago at a p.m. began having some nausea. States he was followed by vomiting. Patient does admit that he became diaphoretic with episodes of vomiting. States that they did call EMS because he does have some generalized weakness that has been a chronic issue being treated for lymphoma. Last dose of chemo with his back in March. Also receiving infusions for chronic lymphoma that he last received in May. Patient's stating they felt that he was given half difficult time getting up the stairs so they called EMS. Patient does admit that he is feeling much better at this time. He states that nausea is improved. Denies any abdominal pain. Denies any other symptoms or complaints. Patient denies any recent fever , chills, shortness of breath, chest pain, back pain, numbness or tingling, headaches or visual changes, or any other complaints. (Tonio Franklin) - Related Data Home Medications Medication Instructions Recorded Confirmed Pantoprazole [Protonix] 40 mg PO DAILY 06/19/16 09/24/17 metFORMIN HCL [Glucophage] 500 mg PO BID 06/19/16 09/24/17 Atorvastatin [Lipitor] 40 mg PO HS 07/21/16 09/24/17 amLODIPine [Norvasc] 5 mg PO DAILY 07/21/16 09/24/17 Allopurinol [Zyloprim] 150 mg PO DAILY 07/22/16 09/24/17 Melatonin 1 mg PO HS PRN 07/22/16 09/24/17 Metoprolol Tartrate [Lopressor] 150 mg PO BID 10/25/16 09/24/17 Furosemide [Lasix] 40 mg PO DAILY 01/11/17 09/24/17 Psyllium Husk [Metamucil] 0.4 gm PO DAILY PRN 01/11/17 09/24/17 traMADol HCL [Ultram] 50 mg PO Q6HR PRN 01/11/17 09/24/17 Previous Rx's Medication Instructions Recorded Ondansetron Odt [Zofran ODT] 4 mg PO Q8HR PRN #10 tab 07/11/18 Allergies Allergy/AdvReac Type Severity Reaction Status Date / Time No Known Allergies Allergy Verified 02/05/18 12:23 Review of Systems ROS Other: All systems not noted in ROS Statement are negative. <Tonio Franklin - Last Filed: 07/11/18 04:08> ROS Other: All systems not noted in ROS Statement are negative. <Joe Sanabria - Last Filed: 07/15/18 09:35> ROS Statement: Those systems with pertinent positive or pertinent negative responses have been documented in the HPI. Past Medical History Past Medical History: Coronary Artery Disease (CAD), Cancer, Diabetes Mellitus, GERD/Reflux, Hyperlipidemia, Hypertension, Myocardial Infarction (VA), Musculoskeletal Disorder, Osteoarthritis (OA), Sleep Apnea/CPAP/BIPAP Additional Past Medical History / Comment(s): SKIN CANCER , GOUT CHRONIC BACK, SKIN LESIONS , Last treatment march 2018. Last Myocardial Infarction Date:: MAY 2016 History of Any Multi-Drug Resistant Organisms: MRSA Date of last positivie culture/infection: 07/22/16 MDRO Source:: LOWER LEGS Past Surgical History: Cholecystectomy, Coronary Bypass/CABG, Heart Catheterization Additional Past Surgical History / Comment(s): PICC line insertion/removed, bilateral caract removals, COLONOSCOPY, EGD, CANCEROUS SKIN LESIONS REMOVED, TOTAL RIGHT KNEE REPLACEMENT, 06-04-16 QUAD BYPASS Past Anesthesia/Blood Transfusion Reactions: Previous Problems w/ Anesthesia Additional Past Anesthesia/Blood Transfusion Reaction / Comment(s): HAD A HARD TIME COMING OUT OF ANESTHESIA AFTER CHOLECYSTECTOMY Past Psychological History: No Psychological Hx Reported Smoking Status: Former smoker - Past Family History Father Family Medical History: Vascular Disorder Additional Family Medical History / Comment(s): POOR CIRCULATION-HAD AMPUTATIONS D/T POOR CIRCULATION Mother Family Medical History: Cancer Additional Family Medical History / Comment(s): STOMACH CANCER <Tonio Franklin - Last Filed: 07/11/18 04:08> General Exam Limitations: no limitations <Tonio Franklin - Last Filed: 07/11/18 04:08> <Joe Sanabria - Last Filed: 07/15/18 09:35> - General Exam Comments Initial Comments: General: The patient is awake and alert, in no distress, and does not appear acutely ill. Eye: There is normal conjunctiva bilaterally. No signs of icterus. Ears, nose, mouth and throat: There are moist mucous membranes and no oral lesions. Neck: The neck is supple, there is no tenderness or JVD. Cardiovascular: There is a regular rate and rhythm. No murmur, rub or gallop is appreciated. Respiratory: Lungs are clear to auscultation, respirations are non-labored, breath sounds are equal. No wheezes, stridor, rales, or rhonchi. Gastrointestinal: Abdomen soft nontender. No rebound or guarding. Musculoskeletal: Normal ROM, no tenderness. Radial pulses equal bilaterally 2+ . Neurological: A&O x 3. CN II-XII intact, There are no obvious motor or sensory deficits. Coordination appears grossly intact. Speech is normal. Skin: Skin is warm and dry and no rashes or lesions are noted. Psychiatric: Cooperative, appropriate mood & affect, normal judgment. (Tonio Franklin) Course <Tonio Franklin - Last Filed: 07/11/18 04:08> <Joe Sanabria - Last Filed: 07/15/18 09:35> Vital Signs 07/11/18 07/11/18 02:09 08:30 Temperature 97.6 F 98.7 F Pulse Rate 90 83 Respiratory 18 18 Rate Blood Pressure 148/68 133/66 O2 Sat by Pulse 97 Oximetry - Reevaluation(s) Reevaluation #1: 07/11/18 04:09 Case discussed and signed out to Dr. Sanabria (Tonio Franklin) EKG Findings - EKG Results: EKG: interpreted by ERMD, sinus rhythm (Rate 96 bpm), normal axis, normal ST/T - VA, Pacemaker, Normal: Myocardial infarction: inferior VA (old age indeterminate) <Joe Sanabria - Last Filed: 07/15/18 09:35> Medical Decision Making - Lab Data Result diagrams: 07/11/18 03:08 <Tonio Franklin - Last Filed: 07/11/18 04:08> - Lab Data Result diagrams: 07/11/18 03:08 07/11/18 07:09 <Joe Sanabria - Last Filed: 07/15/18 09:35> - Medical Decision Making I saw this patient in conjunction with the physician operator/assistant foreman. I performed independent history and physical exam. Agree with case management. I did see the patient and was preparing to admit patient for further symptomatic control but he stated that he is feeling better and would like to go home. Discussed appropriate follow-up and return parameters. (Joe Sanabria) - Lab Data Lab Results 07/11/18 07/11/18 07/11/18 Range/Units 03:08 04:18 07:09 WBC 13.9 H (3.8-10.6) k/uL RBC 3.72 L (4.30-5.90) m/uL Hgb 11.7 L (13.0-17.5) gm/dL Hct 34.3 L (39.0-53.0) % MCV 92.3 (80.0-100.0) fL MCH 31.4 (25.0-35.0) pg MCHC 34.0 (31.0-37.0) g/dL RDW 16.3 H (11.5-15.5) % Plt Count 266 (150-450) k/uL Neutrophils % 87 % Lymphocytes % 6 % Monocytes % 5 % Eosinophils % 1 % Basophils % 0 % Neutrophils # 12.1 H (1.3-7.7) k/uL Lymphocytes # 0.9 L (1.0-4.8) k/uL Monocytes # 0.6 (0-1.0) k/uL Eosinophils # 0.1 (0-0.7) k/uL Basophils # 0.0 (0-0.2) k/uL Poikilocytosis Slight Anisocytosis Slight PT 10.1 (9.0-12.0) sec INR 0.9 (<1.2) APTT 22.1 (22.0-30.0) sec Sodium (137-145) mmol/L Potassium (3.5-5.1) mmol/L Chloride (98-107) mmol/L Carbon Dioxide (22-30) mmol/L Anion Gap mmol/L BUN (9-20) mg/dL Creatinine (0.66-1.25) mg/dL Est GFR (CKD-EPI)AfAm (>60 ml/min/1.73 sqM) Est GFR (CKD-EPI)NonAf (>60 ml/min/1.73 sqM) Glucose (74-99) mg/dL Calcium (8.4-10.2) mg/dL Total Bilirubin (0.2-1.3) mg/dL AST (17-59) U/L ALT (21-72) U/L Alkaline Phosphatase (38-126) U/L Total Creatine Kinase (55-170) U/L CK-MB (CK-2) (0.0-2.4) ng/mL CK-MB (CK-2) Rel Index Troponin I (0.000-0.034) ng/mL Total Protein (6.3-8.2) g/dL Albumin (3.5-5.0) g/dL Amylase (30-110) U/L Lipase (23-300) U/L Urine Color Yellow Urine Appearance Clear (Clear) Urine pH 6.0 (5.0-8.0) Ur Specific [place] 1.014 (1.001-1.035) Urine Protein 1+ H (Negative) Urine Glucose (UA) Negative (Negative) Urine Ketones Negative (Negative) Urine Blood Negative (Negative) Urine Nitrite Negative (Negative) Urine Bilirubin Negative (Negative) Urine Urobilinogen <2.0 (<2.0) mg/dL Ur Leukocyte Esterase Negative (Negative) Urine RBC 1 (0-5) /hpf Urine WBC <1 (0-5) /hpf Urine Bacteria Rare H (None) /hpf Hyaline Casts 3 H (0-2) /lpf Urine Mucus Rare H (None) /hpf 07/11/18 07/11/18 Range/Units 07:09 07:09 WBC (3.8-10.6) k/uL RBC (4.30-5.90) m/uL Hgb (13.0-17.5) gm/dL Hct (39.0-53.0) % MCV (80.0-100.0) fL MCH (25.0-35.0) pg MCHC (31.0-37.0) g/dL RDW (11.5-15.5) % Plt Count (150-450) k/uL Neutrophils % % Lymphocytes % % Monocytes % % Eosinophils % % Basophils % % Neutrophils # (1.3-7.7) k/uL Lymphocytes # (1.0-4.8) k/uL Monocytes # (0-1.0) k/uL Eosinophils # (0-0.7) k/uL Basophils # (0-0.2) k/uL Poikilocytosis Anisocytosis PT (9.0-12.0) sec INR (<1.2) APTT (22.0-30.0) sec Sodium 141 (137-145) mmol/L Potassium 3.4 L (3.5-5.1) mmol/L Chloride 97 L (98-107) mmol/L Carbon Dioxide 33 H (22-30) mmol/L Anion Gap 11 mmol/L BUN 36 H (9-20) mg/dL Creatinine 1.25 (0.66-1.25) mg/dL Est GFR (CKD-EPI)AfAm 65 (>60 ml/min/1.73 sqM) Est GFR (CKD-EPI)NonAf 56 (>60 ml/min/1.73 sqM) Glucose 171 H (74-99) mg/dL Calcium 9.1 (8.4-10.2) mg/dL Total Bilirubin 0.5 (0.2-1.3) mg/dL AST 25 (17-59) U/L ALT 20 L (21-72) U/L Alkaline Phosphatase 82 (38-126) U/L Total Creatine Kinase 73 (55-170) U/L CK-MB (CK-2) 1.3 (0.0-2.4) ng/mL CK-MB (CK-2) Rel Index 1.8 Troponin I 0.018 (0.000-0.034) ng/mL Total Protein 6.7 (6.3-8.2) g/dL Albumin 4.0 (3.5-5.0) g/dL Amylase 56 (30-110) U/L Lipase 274 (23-300) U/L Urine Color Urine Appearance (Clear) Urine pH (5.0-8.0) Ur Specific [place] (1.001-1.035) Urine Protein (Negative) Urine Glucose (UA) (Negative) Urine Ketones (Negative) Urine Blood (Negative) Urine Nitrite (Negative) Urine Bilirubin (Negative) Urine Urobilinogen (<2.0) mg/dL Ur Leukocyte Esterase (Negative) Urine RBC (0-5) /hpf Urine WBC (0-5) /hpf Urine Bacteria (None) /hpf Hyaline Casts (0-2) /lpf Urine Mucus (None) /hpf Disposition <Tonio Franklin - Last Filed: 07/11/18 04:08> Is patient prescribed a controlled substance at d/c from ED?: No <Joe Sanabria - Last Filed: 07/15/18 09:35> Clinical Impression: Vomiting Disposition: HOME SELF-CARE Condition: Fair Instructions: Acute Nausea and Vomiting (ED) Prescriptions: Ondansetron Odt [Zofran ODT] 4 mg PO Q8HR PRN #10 tab PRN Reason: Nausea Referrals: Martinez Yoo MD [Primary Care Provider] - 1-2 days
--- NOTE | 2018-07-11 03:25 | XR ---
EXAMINATION TYPE: XR chest 2V DATE OF EXAM: 07/11/2018 COMPARISON: 12/03/2017 HISTORY: Nausea and vomiting TECHNIQUE: Frontal and lateral views of the chest are obtained. FINDINGS: There is relatively poor inspiration. There is no heart failure. Lungs are clear of infilt rate. There is left subclavian catheter with the tip in the superior vena cava. There are sternal wir es. Bony thorax appears intact. There is small linear density at the right lung base. IMPRESSION: Minimal scarring or subsegmental atelectasis at right lung base without change. Normal h eart.
[2018-07-11 03:32] LABS: Anisocytosis Slight; Basophils % (A) 0 %; Eosinophils # (A) 0.1 k/uL (0-0.7); Eosinophils % (A) 1 %; HCT 34.3 % (39.0-53.0); HGB 11.7 gm/dL (13.0-17.5); Lymphocytes # (A) 0.9 k/uL (1.0-4.8); Lymphocytes % (A) 6 %; MCH 31.4 pg (25.0-35.0); MCV 92.3 fL (80.0-100.0); Mean Platelet Volume 7.6; Monocytes # (A) 0.6 k/uL (0-1.0); Monocytes % (A) 5 %; Neutrophils # (A) 12.1 k/uL (1.3-7.7); Neutrophils % (A) 87 %; Platelet Count 266 k/uL (150-450); Poikilocytosis Slight; RBC 3.72 m/uL (4.30-5.90); RDW 16.3 % (11.5-15.5); WBC 13.9 k/uL (3.8-10.6)
[2018-07-11 04:52] LABS: Appearance,Urine Clear (Clear); Bacteria,Urine Rare /hpf; Bilirubin,Urine Negative (Negative); Blood,Urine Negative (Negative); Color,Urine Yellow; Glucose,Urine (UA) Negative (Negative); Hyaline Casts,Urine 3 /lpf (0-2); Ketones,Urine Negative (Negative); Leukocyte Esterase,Urine Negative (Negative); Mucus,Urine Rare /hpf; Nitrite,Urine Negative (Negative); Protein,Urine 1+ (Negative); RBC,Urine 1 /hpf (0-5); Specific Gravity,Urine 1.014 (1.001-1.035); Urobilinogen,Urine <2.0 mg/dL (<2.0)
[2018-07-11 07:40] LABS: Calcium 9.1 mg/dL (8.4-10.2); Total Bilirubin 0.5 mg/dL (0.2-1.3); Total Protein 6.7 g/dL (6.3-8.2)
[2018-07-11 07:41] LABS: Potassium 3.4 mmol/L (3.5-5.1)
[2018-07-11 07:43] LABS: INR 0.9 (<1.2); Partial Thromboplastin Time 22.1 sec (22.0-30.0); Prothrombin Time 10.1 sec (9.0-12.0)
[2018-07-11 08:01] LABS: Creatine Kinase MB 1.3 ng/mL (0.0-2.4); Troponin I 0.018 ng/mL (0.000-0.034)
[2018-07-11 08:46] VITALS: BP 133/66; PULSE 83; TEMP 98.7
== END 2018-07-11 08:44 | disposition home or self-care (01) ==
LOC: EC 02:05
DX: R11.2 Nausea with vomiting, unspecified (principal); R19.7 Diarrhea, unspecified; R61 Generalized hyperhidrosis; R53.1 Weakness; I25.10 Atherosclerotic heart disease of native coronary artery without angina pectoris; E11.9 Type 2 diabetes mellitus without complications; K21.9 Gastro-esophageal reflux disease without esophagitis; E78.5 Hyperlipidemia, unspecified; I10 Essential (primary) hypertension; I25.2 Old myocardial infarction; M10.9 Gout, unspecified; G47.30 Sleep apnea, unspecified; Z99.89 Dependence on other enabling machines and devices; Z86.14 Personal history of Methicillin resistant Staphylococcus aureus infection; Z85.72 Personal history of non-Hodgkin lymphomas; Z85.828 Personal history of other malignant neoplasm of skin; Z92.21 Personal history of antineoplastic chemotherapy; Z95.1 Presence of aortocoronary bypass graft; Z95.818 Presence of other cardiac implants and grafts; Z96.651 Presence of right artificial knee joint; Z87.891 Personal history of nicotine dependence; Z79.84 Long term (current) use of oral hypoglycemic drugs; Z79.899 Other long term (current) drug therapy
CPT/HCPCS: 99284; 96374; 96375; 82075; 36415; 93005; 80053; 82150; 82550; 82553; 83690; 84484; 85025; 85610; 85730; 81001; 71046; J2405; J1642

== ENCOUNTER 2018-09-20 03:16 | Inpatient (IN) | payer MEDICARE ==
--- NOTE | 2018-09-20 05:28 | ED ---
General Adult HPI - General Chief complaint: Shortness of Breath Stated complaint: SOB Lt Arm Numbness Hx STEMI Time Seen by Provider: 09/20/18 03:34 Source: patient Mode of arrival: wheelchair Limitations: no limitations - History of Present Illness Initial comments: Dictation was produced using [employer] dictation software. please excuse any grammatical, word or spelling errors. Chief Complaint: 78 yo male past medical history multivessel coronary artery bypass grafting, diabetes, GERD, dyslipidemia presents with episode of shortness of breath with left upper extremity paresthesias. History of Present Illness: Patient is 78-year-old male with multiple comorbidities. Patient was admitted today when he awoke because he had episode of shortness of breath. He states along with shortness of breath occurred some left upper extremity paresthesias. He states that his symptoms are similar to when he was diagnosed initially with myocardial infarction. He was then at that time went on to get multiple vessel bypass grafting. Patient states that his symptoms persisted for 30-40 minutes then resolve spontaneously. Patient denied any numbness or weakness to the upper extremity and it occurred after his episode of shortness of breath. Patient was brought by his significant other and their concern for cardiac illness. The ROS documented in this emergency department record has been reviewed and confirmed by me. Those systems with pertinent positive or negative responses have been documented in the HPI. All other systems are other negative and/or noncontributory. PHYSICAL EXAM: General Impression: Alert and oriented x3, not in acute distress HEENT: Normocephalic atraumatic, extra-ocular movements intact, pupils equal and reactive to light bilaterally, mucous membranes moist. Cardiovascular: Heart regular rate and rhythm, S1&S2 audible, no murmurs, rubs or gallops Chest: Lungs clear to auscultation bilaterally, no rhonchi, no wheeze, no rales Abdomen: Bowel sounds present, abdomen soft, non-tender, non-distended, no organomegaly Musculoskeletal: Pulses present and equal in all extremities, no peripheral edema Motor: Power 5/5 bilaterally, no focal deficits noted Neurological: CN II-XII grossly intact, no focal motor or sensory deficits noted Skin: Intact with no visualized rashes Psych: Normal affect and mood ED course: 78-year-old male presents with episode of shortness of breath and lef t upper extremity paresthesias. Vital signs upon arrival are within acceptable limits. Patient denies any symptoms at this time. Laboratory evaluation obtained. CBC shows mild leukocytosis 11.8 likely secondary to stress. Coag panel is unremarkable. Metabolic panel shows baseline elevation of renal markers. Magnesium 1.2. Troponin 0.099. No alternate reason for elevation of troponin at this time. Patient continues to endorse no chest pain and no shortness of breath at this time. There is concern is that patient's symptoms reflect NSTEMI. There is no clinical suspicion of pulmonary embolus at this time given that patient is asymptomatic of chest pain and shortness of breath at this time. Patient started on low-dose heparin. Patient given aspirin. Patient admitted with cardiology consultation. EKG interpretation: Ventricular rate 72, normal sinus rhythm,. Interval 176, QS 90, QTc 459. No AR prolongation, no QTC prolongation, no ST or T-wave changes noted. Overall, this EKG is unremarkable - Related Data Home Medications Medication Instructions Recorded Confirmed Pantoprazole [Protonix] 40 mg PO DAILY 06/19/16 09/24/17 metFORMIN HCL [Glucophage] 500 mg PO BID 06/19/16 09/24/17 Atorvastatin [Lipitor] 40 mg PO HS 07/21/16 09/24/17 amLODIPine [Norvasc] 5 mg PO DAILY 07/21/16 09/24/17 Allopurinol [Zyloprim] 150 mg PO DAILY 07/22/16 09/24/17 Melatonin 1 mg PO HS PRN 07/22/16 09/24/17 Metoprolol Tartrate [Lopressor] 150 mg PO BID 10/25/16 09/24/17 Furosemide [Lasix] 40 mg PO DAILY 01/11/17 09/24/17 Psyllium Husk [Metamucil] 0.4 gm PO DAILY PRN 01/11/17 09/24/17 traMADol HCL [Ultram] 50 mg PO Q6HR PRN 01/11/17 09/24/17 Previous Rx's Medication Instructions Recorded Ondansetron Odt [Zofran ODT] 4 mg PO Q8HR PRN #10 tab 07/11/18 Allergies Allergy/AdvReac Type Severity Reaction Status Date / Time No Known Allergies Allergy Verified 09/20/18 03:32 Review of Systems ROS Statement: Those systems with pertinent positive or pertinent negative responses have been documented in the HPI. ROS Other: All systems not noted in ROS Statement are negative. Past Medical History Past Medical History: Coronary Artery Disease (CAD), Cancer, Diabetes Mellitus, GERD/Reflux, Hyperlipidemia, Hypertension, Myocardial Infarction (CT), Musculoskeletal Disorder, Osteoarthritis (OA), Sleep Apnea/CPAP/BIPAP Additional Past Medical History / Comment(s): SKIN CANCER , GOUT CHRONIC BACK,SKIN LESIONS , Last treatment march 2018. Last Myocardial Infarction Date:: MAY 2016 History of Any Multi-Drug Resistant Organisms: MRSA Date of last positivie culture/infection: 07/22/16 MDRO Source:: LOWER LEGS Past Surgical History: Cholecystectomy, Coronary Bypass/CABG, Heart Catheteri zation Additional Past Surgical History / Comment(s): PICC line insertion/removed, bilateral caract removals, COLONOSCOPY, EGD, CANCEROUS SKIN LESIONS REMOVED, TOTAL RIGHT KNEE REPLACEMENT, 06-04-16 QUAD BYPASS Past Anesthesia/Blood Transfusion Reactions: Previous Problems w/ Anesthesia Additional Past Anesthesia/Blood Transfusion Reaction / Comment(s): HAD A HARD TIME COMING OUT OF ANESTHESIA AFTER CHOLECYSTECTOMY Past Psychological History: No Psychological Hx Reported Smoking Status: Former smoker Past Alcohol Use History: None Reported Past Drug Use History: None Reported - Past Family History Father Family Medical History: Vascular Disorder Additional Family Medical History / Comment(s): POOR CIRCULATION-HAD AMPUTATIONS D/T POOR CIRCULATION Mother Family Medical History: Cancer Additional Family Medical History / Comment(s): STOMACH CANCER General Exam Limitations: no limitations Course Vital Signs 09/20/18 03:29 Temperature 98.0 F Pulse Rate 64 Respiratory 18 Rate Blood Pressure 110/57 O2 Sat by Pulse 95 Oximetry Medical Decision Making - Lab Data Result diagrams: 09/20/18 05:30 09/20/18 05:30 Lab Results 09/20/18 09/20/18 09/20/18 Range/Units 05:30 05:30 05:30 WBC 11.8 H (3.8-10.6) k/uL RBC 4.01 L (4.30-5.90) m/uL Hgb 12.7 L (13.0-17.5) gm/dL Hct 38.2 L (39.0-53.0) % MCV 95.2 (80.0-100.0) fL MCH 31.7 (25.0-35.0) pg MCHC 33.3 (31.0-37.0) g/dL RDW 16.8 H (11.5-15.5) % Plt Count 337 (150-450) k/uL Neutrophils % 74 % Lymphocytes % 16 % Monocytes % 6 % Eosinophils % 2 % Basophils % 1 % Neutrophils # 8.8 H (1.3-7.7) k/uL Lymphocytes # 1.9 (1.0-4.8) k/uL Monocytes # 0.7 (0-1.0) k/uL Eosinophils # 0.3 (0-0.7) k/uL Basophils # 0.1 (0-0.2) k/uL Poikilocytosis Slight Anisocytosis Slight PT 10.2 (9.0-12.0) sec INR 0.9 (<1.2) APTT 19.4 L (22.0-30.0) sec Sodium 140 (137-145) mmol/L Potassium 4.3 (3.5-5.1) mmol/L Chloride 97 L (98-107) mmol/L Carbon Dioxide 29 (22-30) mmol/L Anion Gap 14 mmol/L BUN 44 H (9-20) mg/dL Creatinine 1.34 H (0.66-1.25) mg/dL Est GFR (CKD-EPI)AfAm 59 (>60 ml/min/1.73 sqM) Est GFR (CKD-EPI)NonAf 51 (>60 ml/min/1.73 sqM) Glucose 140 H (74-99) mg/dL Calcium 9.3 (8.4-10.2) mg/dL Magnesium 1.2 L (1.6-2.3) mg/dL Total Bilirubin 0.8 (0.2-1.3) mg/dL AST 37 (17-59) U/L ALT 30 (21-72) U/L Alkaline Phosphatase 75 (38-126) U/L Troponin I (0.000-0.034) ng/mL Total Protein 7.2 (6.3-8.2) g/dL Albumin 4.5 (3.5-5.0) g/dL 09/20/18 Range/Units 05:30 WBC (3.8-10.6) k/uL RBC (4.30-5.90) m/uL Hgb (13.0-17.5) gm/dL Hct (39.0-53.0) % MCV (80.0-100.0) fL MCH (25.0-35.0) pg MCHC (31.0-37.0) g/dL RDW (11.5-15.5) % Plt Count (150-450) k/uL Neutrophils % % Lymphocytes % % Monocytes % % Eosinophils % % Basophils % % Neutrophils # (1.3-7.7) k/uL Lymphocytes # (1.0-4.8) k/uL Monocytes # (0-1.0) k/uL Eosinophils # (0-0.7) k/uL Basophils # (0-0.2) k/uL Poikilocytosis Anisocytosis PT (9.0-12.0) sec INR (<1.2) APTT (22.0-30.0) sec Sodium (137-145) mmol/L Potassium (3.5-5.1) mmol/L Chloride (98-107) mmol/L Carbon Dioxide (22-30) mmol/L Anion Gap mmol/L BUN (9-20) mg/dL Creatinine (0.66-1.25) mg/dL Est GFR (CKD-EPI)AfAm (>60 ml/min/1.73 sqM) Est GFR (CKD-EPI)NonAf (>60 ml/min/1.73 sqM) Glucose (74-99) mg/dL Calcium (8.4-10.2) mg/dL Magnesium (1.6-2.3) mg/dL Total Bilirubin (0.2-1.3) mg/dL AST (17-59) U/L ALT (21-72) U/L Alkaline Phosphatase (38-126) U/L Troponin I 0.099 H* (0.000-0.034) ng/mL Total Protein (6.3-8.2) g/dL Albumin (3.5-5.0) g/dL Disposition Clinical Impression: NSTEMI (non-ST elevated myocardial infarction) Disposition: ADMITTED IP TO THIS [facility] Condition: Critical Is patient prescribed a controlled substance at d/c from ED?: No Referrals: Martinez Yoo MD [Primary Care Provider] - 1-2 days Decision Time: 06:54
[2018-09-20 05:56] LABS: Albumin 4.5 g/dL (3.5-5.0); Calcium 9.3 mg/dL (8.4-10.2); Total Bilirubin 0.8 mg/dL (0.2-1.3); Total Protein 7.2 g/dL (6.3-8.2)
--- NOTE | 2018-09-20 05:56 | XR ---
EXAM: XR Chest, 2 Views CLINICAL HISTORY: Reason: Chest Pain TECHNIQUE: Frontal and lateral views of the chest. COMPARISON: Chest radiographs 07/11/2018 FINDINGS: Lungs: Lungs are clear of focal infiltrates or consolidations. Mild right base subsegmental atelectasis. Pleural space: No evidence of pleural effusion or pneumothorax. Heart: Heart size is within normal limits. Mediastinum: Mediastinal structures are unremarkable. Bones/joints: Post surgical changes of previous median sternotomy. Hypertrophic changes throughout the thoracic spine suggesting diffuse hepatic skeletal hyperostosis. Tubes, lines and devices: Indwelling left sided central venous catheter extends to region of superior vena cava near junction of innominate vein and superior vena cava, unchanged. No significant change since chest x-ray 07/11/2018. IMPRESSION: No evidence of acute cardiopulmonary disease.
[2018-09-20 05:59] LABS: Magnesium 1.2 mg/dL (1.6-2.3); Potassium 4.3 mmol/L (3.5-5.1)
[2018-09-20 06:04] LABS: INR 0.9 (<1.2); Prothrombin Time 10.2 sec (9.0-12.0)
[2018-09-20 06:08] LABS: Anisocytosis Slight; Basophils # (A) 0.1 k/uL (0-0.2); Basophils % (A) 1 %; Eosinophils # (A) 0.3 k/uL (0-0.7); Eosinophils % (A) 2 %; HCT 38.2 % (39.0-53.0); HGB 12.7 gm/dL (13.0-17.5); Lymphocytes # (A) 1.9 k/uL (1.0-4.8); Lymphocytes % (A) 16 %; MCH 31.7 pg (25.0-35.0); MCHC 33.3 g/dL (31.0-37.0); MCV 95.2 fL (80.0-100.0); Mean Platelet Volume 7.2; Monocytes # (A) 0.7 k/uL (0-1.0); Monocytes % (A) 6 %; Neutrophils # (A) 8.8 k/uL (1.3-7.7); Neutrophils % (A) 74 %; Platelet Count 337 k/uL (150-450); Poikilocytosis Slight; RBC 4.01 m/uL (4.30-5.90); RDW 16.8 % (11.5-15.5); WBC 11.8 k/uL (3.8-10.6)
[2018-09-20] MEDS ORDERED: SODIUM CHLORIDE 0.9% 1,000 ML IV STA (06:21)
[2018-09-20 06:40] LABS: Partial Thromboplastin Time 19.4 sec (22.0-30.0)
[2018-09-20] MEDS ORDERED: ASPIRIN 81 MG PO STA (06:51)
[2018-09-20] MEDS: MAGNESIUM SULFATE-D5W PMX 1 GM in DEXTROSE/WATER 1 100ML.BAG IVPB SCH ×2 (06:54→08:35)
[2018-09-20] MEDS ORDERED: NITROGLYCERIN SL TABS 0.4 MG TAB SUBLINGUAL PRN (06:55)
[2018-09-20 07:05] LABS: Creatine Kinase MB 1.1 ng/mL (0.0-2.4)
[2018-09-20 11:23] LABS: Glucose,Whole Blood 187 mg/dL (75-99)
[2018-09-20] MEDS ORDERED: ASPIRIN 81 MG PO PRN (14:33)
[2018-09-20] MEDS ORDERED: HYDROcodone/APAP 5-325MG 1 EACH TAB PO PRN (14:33)
[2018-09-20] MEDS ORDERED: COLCHICINE 0.6 MG EACH PO PRN (14:33)
[2018-09-20] MEDS: amLODIPine 5 MG TAB PO SCH (15:53)
[2018-09-20] MEDS: PANTOPRAZOLE 40 MG TABLET PO SCH (15:53)
[2018-09-20] MEDS: ALLOPURINOL 300 MG TAB PO SCH (15:53)
--- NOTE | 2018-09-20 16:08 | P.CRDCN ---
History of Present Illness Consult date: 09/20/18 History of present illness: This is a 78-year-old gentleman with history of ischemic heart disease with previous bypass surgery done about 2 years ago. Post surgery. Patient developed a sternal infection and had a long rehabitation time. For the last year, Patient has been treated with chemotherapy for lymphoma. Patient is now admitted to the hospital with complaints of intermittent shortness of breath with exertion. Before admission, patient woke up with shortness of breath and some tingling in the left arm. This shortness of breath is not severe as it was when he had myocardial infarctions. Denied any chest pain. His creatinine is 1.3. His troponin was mildly elevated. We're asked to see the patient for further evaluation. Patient had another troponin which is lower than the the troponin that he was was admitted with. The pattern is not consistent with acute myocardial infarctions. EKGs did not reveal any acute changes. His proBNP is within normal limits. His shortness of breath Could be multifactorial but there is no active evidence of CHF, or myocardial infarctions. I will obtain an echocardiogram to assess LV function. Further condition depend upon clinical course Review of Systems As per the chart Past Medical History Past Medical History: Coronary Artery Disease (CAD), Cancer, GERD/Reflux, Hyperlipidemia, Hypertension, Myocardial Infarction (VT), Musculoskeletal Disorder, Osteoarthritis (OA), Sleep Apnea/CPAP/BIPAP Additional Past Medical History / Comment(s): SKIN CANCER , GOUT CHRONIC BACK,SKIN LESIONS , chemo 09/18/2018 Last Myocardial Infarction Date:: MAY 2016 History of Any Multi-Drug Resistant Organisms: MRSA Date of last positivie culture/infection: 07/22/16 MDRO Source:: LOWER LEGS Past Surgical History: Cholecystectomy, Coronary Bypass/CABG, Heart Catheterization Additional Past Surgical History / Comment(s): PICC line insertion/removed, bilateral caract removals, COLONOSCOPY, EGD, CANCEROUS SKIN LESIONS REMOVED, TOTAL RIGHT KNEE REPLACEMENT, 06-04-16 QUAD BYPASS Past Anesthesia/Blood Transfusion Reactions: Previous Problems w/ Anesthesia Additional Past Anesthesia/Blood Transfusion Reaction / Comment(s): HAD A HARD TIME COMING OUT OF ANESTHESIA AFTER CHOLECYSTECTOMY Past Psychological History: No Psychological Hx Reported Smoking Status: Former smoker Past Alcohol Use History: None Reported Additional Past Alcohol Use History / Comment(s): Pt quit smoking in 1988, STARTED SMOKING AT AGE 18 SMOKED 1 PPD Past Drug Use History: None Reported - Past Family History Father Family Medical History: Vascular Disorder Additional Family Medical History / Comment(s): POOR CIRCULATION-HAD AMPUTATIONS D/T POOR CIRCULATION Mother Family Medical History: Cancer Additional Family Medical History / Comment(s): STOMACH CANCER Medications and Allergies Home Medications Medication Instructions Recorded Confirmed Type Pantoprazole [Protonix] 40 mg PO DAILY 06/19/16 09/20/18 History metFORMIN HCL [Glucophage] 500 mg PO BID 06/19/16 09/20/18 History Atorvastatin [Lipitor] 40 mg PO HS 07/21/16 09/20/18 History amLODIPine [Norvasc] 5 mg PO DAILY 07/21/16 09/20/18 History Allopurinol [Zyloprim] 300 mg PO DAILY 07/22/16 09/20/18 History Metoprolol Tartrate [Lopressor] 150 mg PO BID 10/25/16 09/20/18 History Furosemide [Lasix] 40 mg PO DAILY 01/11/17 09/20/18 History Aspirin EC [Ecotrin Low Dose] 162 mg PO DAILY PRN 09/20/18 09/20/18 History Colchicine 0.6 mg PO DAILY PRN 09/20/18 09/20/18 History HYDROcodone/APAP 5-325MG [[place] 1 tab PO DAILY PRN 09/20/18 09/20/18 History 5-325] Metolazone Unknown Dose 1 tab PO DAILY 09/20/18 09/20/18 History Allergies Allergy/AdvReac Type Severity Reaction Status Date / Time No Known Allergies Allergy Verified 09/20/18 07:07 Physical Exam Vitals: Vital Signs Temp Pulse Pulse Resp BP BP Pulse Ox 09/20/18 15:46 97.4 F L 80 19 156/67 94 L 09/20/18 11:04 98.7 F 77 16 125/58 99 09/20/18 10:58 77 18 09/20/18 08:35 97.2 F L 65 18 137/57 96 09/20/18 08:00 98.7 F 77 16 125/58 99 09/20/18 06:51 66 16 127/65 98 09/20/18 03:29 98.0 F 64 18 110/57 95 Intake and Output 09/20/18 09/20/18 09/20/18 06:59 14:59 22:59 Output Total 0 Balance 0 Output: Urine 0 Other: Weight GENERAL EXAM: Patient is alert and oriented and doesn't appear to be in any acute distress HEENT: Normocephalic. Normal reaction of pupils, equal size, normal range of extraocular motion. No erythema or exudates in the throat. NECK: No masses, no nuchal rigidity. CHEST: No chest wall deformity. LUNGS: Diminished air exchang HEART: S1 and S2 normal with no audible mumurs or gallops. Regular rhythm, femorals equal on both sides.. ABDOMEN: No hepatosplenomegaly, normal bowel sounds, no guarding or rigidity. SKIN: No rashes CENTRAL NERVOUS SYSTEM: No focal deficits. EXTREMITIES: Mild edema Results 09/20/18 05:30 09/20/18 05:30 Cardiac Enzymes 09/20/18 09/20/18 09/20/18 Range/Units 05:30 05:30 05:30 AST 37 (17-59) U/L CK-MB (CK-2) 1.1 (0.0-2.4) ng/mL Troponin I 0.099 H* (0.000-0.034) ng/mL 09/20/18 Range/Units 11:40 AST (17-59) U/L CK-MB (CK-2) (0.0-2.4) ng/mL Troponin I 0.071 H* (0.000-0.034) ng/mL Coagulation 09/20/18 Range/Units 05:30 PT 10.2 (9.0-12.0) sec APTT 19.4 L (22.0-30.0) sec CBC 09/20/18 Range/Units 05:30 WBC 11.8 H (3.8-10.6) k/uL RBC 4.01 L (4.30-5.90) m/uL Hgb 12.7 L (13.0-17.5) gm/dL Hct 38.2 L (39.0-53.0) % Plt Count 337 (150-450) k/uL Comprehensive Metabolic Panel 09/20/18 Range/Units 05:30 Sodium 140 (137-145) mmol/L Potassium 4.3 (3.5-5.1) mmol/L Chloride 97 L (98-107) mmol/L Carbon Dioxide 29 (22-30) mmol/L BUN 44 H (9-20) mg/dL Creatinine 1.34 H (0.66-1.25) mg/dL Glucose 140 H (74-99) mg/dL Calcium 9.3 (8.4-10.2) mg/dL AST 37 (17-59) U/L ALT 30 (21-72) U/L Alkaline Phosphatase 75 (38-126) U/L Total Protein 7.2 (6.3-8.2) g/dL Albumin 4.5 (3.5-5.0) g/dL Current Medications Generic Name Dose Route Start Last Admin Trade Name Freq PRN Reason Stop Dose Admin Hydrocodone Bitart/Acetaminophen 1 each 09/20/18 14:33 [place] 5-325 PO DAILY PRN Pain Allopurinol 300 mg 09/20/18 14:45 09/20/18 15:53 Zyloprim PO 300 mg DAILY [facility] Administration Amlodipine Besylate 5 mg 09/20/18 14:45 09/20/18 15:53 Norvasc PO 5 mg DAILY [facility] Administration Aspirin 325 mg 09/21/18 09:00 Aspirin PO DAILY [facility] Aspirin 162 mg 09/20/18 14:33 Aspirin PO DAILY PRN Pain Atorvastatin Calcium 40 mg 09/20/18 21:00 Lipitor PO HS [facility] Colchicine 0.6 mg 09/20/18 14:33 Colcrys PO DAILY PRN GOUT Furosemide 40 mg 09/21/18 09:00 Lasix PO DAILY [facility] Metformin HCl 500 mg 09/20/18 21:00 Glucophage PO BID [facility] Metoprolol Tartrate 150 mg 09/20/18 21:00 Lopressor PO BID [facility] Nitroglycerin 0.4 mg 09/20/18 06:55 Nitrostat SUBLINGUAL Q5M PRN Chest Pain Pantoprazole Sodium 40 mg 09/20/18 14:45 09/20/18 15:53 Protonix PO 40 mg DAILY [facility] Administration Intake and Output 09/20/18 09/20/18 09/20/18 06:59 14:59 22:59 Output Total 0 Balance 0 Output: Urine 0 Other: Weight 09/20/18 05:30 09/20/18 05:30 EKG Interpretations (text) Sinus rhythm Assessment and Plan (1) Dyspnea Current Visit: Yes Status: Acute Code(s): R06.00 - DYSPNEA, UNSPECIFIED SNOMED Code(s): 751698226 (2) Elevated troponin Current Visit: Yes Status: Acute Code(s): R74.8 - ABNORMAL LEVELS OF OTHER SERUM ENZYMES SNOMED Code(s): 958232801 (3) COPD (chronic obstructive pulmonary disease) Current Visit: No Status: Acute Code(s): J44.9 - CHRONIC OBSTRUCTIVE PULMONARY DISEASE, UNSPECIFIED SNOMED Code(s): 01480478 (4) Coronary artery disease Current Visit: No Status: Acute Priority: High Code(s): I25.10 - ATHSCL HEART DISEASE OF [place] CORONARY ARTERY W/O ANG PCTRS SNOMED Code(s): 21058395 Plan: Patient's symptoms are not explained by CHF or myocardial infarctions. No troponins are mildly elevated, the pattern is not consistent with myocardial infarctions. The proBNP is within normal limits. A chest x-ray did not reveal any acute CHF findings. May obtain d-dimer and computed tomography scan to rule out pulmonary emboli. I'll obtain an echocardiogram. Further examination depend upon the clinical course
--- NOTE | 2018-09-20 16:13 | HP ---
HISTORY AND PHYSICAL DATE OF ADMISSION: September 20, 2018. DATE OF SERVICE: September 20, 2018. PRESENTING COMPLAINT: Shortness of breath. HISTORY OF PRESENTING COMPLAINT: A very pleasant 78-year-old patient who follows with Dr. Martinez Yoo. Chronic stable medical conditions include coronary artery disease, hypertension, hyperlipidemia, obstructive sleep apnea, osteoarthritis, GERD, gout. The patient also being treated for lymphoma with chemotherapy. Patient did have induction therapy, nonspontaneous therapy by Dr. Burton. Last night the patient became short of breath and developed pain in the left arm that lasted for a good hour and a half. There was no chest pain. No fever. No chills. No cough. Did feel a bit dizzy and lightheaded. The patient's appetite has been okay. The patient presented to the ER. Patient did have a slight troponin rise, though patient has underlying renal failure. The patient is admitted to rule out a cardiac cause especially in the setting of prior coronary artery disease. The patient normally uses a cane to get about. REVIEW OF SYSTEMS: CONSTITUTIONAL: Tired. HEENT: None. RESPIRATORY as above. CARDIOVASCULAR: As above. GASTROINTESTINAL: Heartburn. GENITOURINARY: None. MUSCULOSKELETAL: Arthritic pain in joints. DERMATOLOGICAL: Some chronic skin changes on the lower extremity. HEMATOLOGICAL: None. LYMPHATICS: none. PSYCHIATRY none. NEUROLOGICAL: None. PAST MEDICAL HISTORY: Coronary artery disease with bypass. Hypertension, hyperlipidemia, obstructive sleep apnea, osteoarthritis, GERD, gout. PAST SURGICAL HISTORY: Cholecystectomy, coronary artery bypass, PICC line, bilateral cataract removed, skin cancer removed, right total knee replacement, coronary artery bypass in 2016. 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 Alcohol occasionally. Smoked a pack a day for over 30 years. Stopped in 1988. Patient is . Uses a cane. FAMILY HISTORY: Stomach cancer. HOME MEDICATIONS: 1. Aspirin 162 mg daily p.r.n. 2. Metolazone 1 tablet p.o. daily. 3. Glucophage 500 mg p.o. b.i.d. 4. Norvasc 5 mg p.o. daily. 5. Protonix 40 mg p.o. daily. 6. Lopressor 50 mg b.i.d. 7. Dexter 5 one tablet p.o. daily p.r.n. 8. Lasix 40 mg p.o. daily. 9. Colchicine 0.6 mg p.o. daily p.r.n. 10.Lipitor 40 mg q.h.s. 11.Allopurinol 300 mg p.o. daily. The patient's BUN and creatinine was 36/1.25 back in June. ASSESSMENT: 1. This patient presented with what could be possible unstable angina with manifesting short of breath, left arm pain with no obvious EKG changes. There was some troponin positive in the setting of renal failure. Will need to rule out a present cardiac cause. 2. Coronary artery disease with prior history of coronary bypass. 3. Hypertension. 4. Hyperlipidemia. 5. Obstructive sleep apnea. 6. Primary osteoarthritis. 7. Chronic gout. 8. Gastroesophageal reflux disease. 9. Lymphoma undergoing chemotherapy. 10.Chronic kidney disease stage 3 probably from nephrosclerosis. 11.Morbid obesity BMI 41.8. 12.Normocytic anemia probably from underlying lymphoma. PLAN: Home medications are resumed. Cardiology was consulted. We will order a 2-D echocardiogram. Serial cardiac enzymes are in place. The patient has no active chest pain at the present time. I will hold off any heparinization. Care was discussed with the patient. Questions were answered. Copy to Dr. Yoo. JOSE J / MENDY: [id number] /
--- NOTE | 2018-09-20 16:13 | HP ---
HISTORY AND PHYSICAL ADDENDUM: DATE OF ADMISSION/DATE OF SERVICE: September 20, 2018 Addendum: EKG tracing personally reviewed by me shows normal sinus rhythm. Chest x-ray film personally reviewed by me shows some chronic changes. Report was read. It says no different from the prior film. MMODL / IJN: [id number] /
[2018-09-20] MEDS: metFORMIN 500 MG TAB PO SCH (20:08)
[2018-09-20] MEDS: METOPROLOL TARTRATE 50 MG TAB PO SCH (20:20)
[2018-09-20] MEDS: ATORVASTATIN 40 MG TAB PO SCH (20:21)
[2018-09-20] MEDS: MELATONIN 5 MG TABLET PO SCH (23:43)
--- NOTE | 2018-09-21 09:00 | P.CONS ---
History of Present Illness - Reason for Consult Consult date: 09/21/18 Possible cellulitis of the lower extremities - History of Present Illness This is a 78-year-old male well-known to ID service as he has history of previous non-ST MO and on heart catheterization was found to have severe coronary artery disease and left distal main thrombosis and subsequently underwent a four-vessel coronary artery bypass graft procedure and sternal repair with cable and plate system. He was in rehab at [facility] for extensive period treated for sternal wound infection with Acientobacter and MRSA bacteremia. Patient has more recently been treated for lower extremity cellulitis and nonhealing ulcers. Patient states his lower extremities were doing very well until about 3 weeks ago and then he developed increasing redness swelling and open wounds. The patient came into the hospital regarding shortness of breath and tingling of his left arm. He has been seen by cardiology and has been cleared of myocardial infarction or heart failure. Echocardiogram is being performed at this time. Patient is expecting to go home later today. He has been afebrile and denies any fever or chills at home. Vital signs have been stable. White count 11.8, creatinine 1.34. No antibiotics have been given. No local wound care has been addressed. The patient also has known history of lymphoma on chemotherapy under the care of Dr. Dr. Burton with most recent PET scan in April 2018 showing the largest mid abdomen region stable in size and appearance. No new abnormal hypermetabolic uptake. Review of Systems All systems: negative Constitutional: Denies anorexia, Denies chills, Denies fatigue, Denies fever, Denies lethargy, Denies malaise, Denies poor appetite, Denies weight loss Eyes: denies blurred vision, denies pain Ears, nose, mouth and throat: Denies dental pain, Denies headache, Denies sore throat, Denies vertigo Cardiovascular: Denies chest pain, Denies shortness of breath Respiratory: Denies cough, Denies cough with sputum, Denies dyspnea, Denies excessive sputum, Denies hemoptysis, Denies home oxygen, Denies respiratory infections, Denies wheezing Gastrointestinal: Reports constipation, Denies abdominal pain, Denies diarrhea, Denies loss of appetite, Denies melena, Denies nausea, Denies vomiting Genitourinary: Denies dysuria Musculoskeletal: Denies frequent falls, Denies myalgias Integumentary: Reports color changes, Reports darkening of skin, Reports sores, Reports wounds, Denies pruritus, Denies rash Neurological: Denies aphasia, Denies change in mentation, Denies change in speech, Denies gait dysfunction, Denies numbness, Denies seizures, Denies weakness Psychiatric: Denies anxiety, Denies depression Endocrine: Denies fatigue, Denies weight change Past Medical History Past Medical History: Coronary Artery Disease (CAD), Cancer, GERD/Reflux, Hyperlipidemia, Hypertension, Myocardial Infarction (MO), Musculoskeletal Disorder, Osteoarthritis (OA), Sleep Apnea/CPAP/BIPAP Additional Past Medical History / Comment(s): SKIN CANCER , GOUT CHRONIC BACK,SKIN LESIONS , chemo 09/18/2018 Last Myocardial Infarction Date:: MAY 2016 History of Any Multi-Drug Resistant Organisms: MRSA Year Discovered:: 07/22/16 MDRO Source:: LOWER LEGS Past Surgical History: Cholecystectomy, Coronary Bypass/CABG, Heart Catheterization Additional Past Surgical History / Comment(s): PICC line insertion/removed, bilateral caract removals, COLONOSCOPY, EGD, CANCEROUS SKIN LESIONS REMOVED, TOTAL RIGHT KNEE REPLACEMENT, 06-04-16 QUAD BYPASS Past Anesthesia/Blood Transfusion Reactions: Previous Problems w/ Anesthesia Additional Past Anesthesia/Blood Transfusion Reaction / Comm: HAD A HARD TIME COMING OUT OF ANESTHESIA AFTER CHOLECYSTECTOMY Past Psychological History: No Psychological Hx Reported Smoking Status: Former smoker Past Alcohol Use History: None Reported Additional Past Alcohol Use History / Comment(s): Pt quit smoking in 1988, STARTED SMOKING AT AGE 18 SMOKED 1 PPD. He denies any illicit drug use, no alcohol use. He is currently living at home with his but did go to [facility] in the past due to sternal wound infection and IV antibiotic needs. He is ambulating without device. 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 He was in the [employer] and was in the [place]. No animal exposures. No extensive travels. Past Drug Use History: None Reported - Past Family History Father Family Medical History: Vascular Disorder Additional Family Medical History / Comment(s): POOR CIRCULATION-HAD AMPUTATIONS D/T POOR CIRCULATION Mother Family Medical History: Cancer Additional Family Medical History / Comment(s): STOMACH CANCER Medications and Allergies Home Medications Medication Instructions Recorded Confirmed Type Pantoprazole [Protonix] 40 mg PO DAILY 06/19/16 09/20/18 History metFORMIN HCL [Glucophage] 500 mg PO BID 06/19/16 09/20/18 History Atorvastatin [Lipitor] 40 mg PO HS 07/21/16 09/20/18 History amLODIPine [Norvasc] 5 mg PO DAILY 07/21/16 09/20/18 History Allopurinol [Zyloprim] 300 mg PO DAILY 07/22/16 09/20/18 History Metoprolol Tartrate [Lopressor] 150 mg PO BID 10/25/16 09/20/18 History Furosemide [Lasix] 40 mg PO DAILY 01/11/17 09/20/18 History Aspirin EC [Ecotrin Low Dose] 162 mg PO DAILY PRN 09/20/18 09/20/18 History Colchicine 0.6 mg PO DAILY PRN 09/20/18 09/20/18 History HYDROcodone/APAP 5-325MG [[place] 1 tab PO DAILY PRN 09/20/18 09/20/18 History 5-325] Metolazone Unknown Dose 1 tab PO DAILY 09/20/18 09/20/18 History Allergies Allergy/AdvReac Type Severity Reaction Status Date / Time No Known Allergies Allergy Verified 09/20/18 07:07 Physical Exam Vitals: Vital Signs Temp Pulse Resp BP Pulse Ox 09/21/18 07:57 95 09/21/18 04:00 98.3 F 70 18 145/60 95 09/21/18 00:00 98.2 F 75 18 144/61 95 09/20/18 20:00 98 F 91 17 153/67 96 09/20/18 16:23 94 L 09/20/18 16:00 80 09/20/18 15:46 97.4 F L 80 19 156/67 94 L 09/20/18 11:04 98.7 F 77 16 125/58 99 09/20/18 10:58 77 18 Intake and Output 09/20/18 09/21/18 09/21/18 22:59 06:59 14:59 Intake Total 180 1240 240 Balance 180 1240 240 Intake: IV 440 normal saline 440 Oral 180 800 240 Other: Voiding Method Toilet Toilet # Voids 1 2 Weight 140.7 kg Gen: This is a morbidly obese 78-year-old male. He is resting in a recliner and appears to be comfortable and in no acute distress. No respiratory distress is noted. HEENT: Head is atraumatic, normocephalic. Pupils equal, round. Sclerae is anicteric. NECK: Supple. No JVD. No lymphadenopathy. No thyromegaly. LUNGS: Clear to auscultation. No wheezes or rhonchi. No intercostal retractions. No accessory muscle usage. HEART: Regular rate and rhythm. No murmur. ABDOMEN: Soft. Bowel sounds are present. No masses. No tenderness. EXTREMITIES: 1+ bilateral lower extreme edema. There is erythema and warmth to bilateral lower extremities more so on the left with few areas of scabbing. Dorsalis pedis is +1 bilaterally. No ulcers on the heels or feet. NEUROLOGICAL: Patient is awake, alert and oriented x3. Cranial nerves 2 through 12 are grossly intact. Results Results: Laboratory Results WBC 11.8 k/uL (3.8-10.6) H 09/20/18 05:30 RBC 4.01 m/uL (4.30-5.90) L 09/20/18 05:30 Hgb 12.7 gm/dL (13.0-17.5) L 09/20/18 05:30 Hct 38.2 % (39.0-53.0) L 09/20/18 05:30 MCV 95.2 fL (80.0-100.0) 09/20/18 05:30 MCH 31.7 pg (25.0-35.0) 09/20/18 05:30 MCHC 33.3 g/dL (31.0-37.0) 09/20/18 05:30 RDW 16.8 % (11.5-15.5) H 09/20/18 05:30 Plt Count 337 k/uL (150-450) 09/20/18 05:30 Neutrophils % 74 % 09/20/18 05:30 Lymphocytes % 16 % 09/20/18 05:30 Monocytes % 6 % 09/20/18 05:30 Eosinophils % 2 % 09/20/18 05:30 Basophils % 1 % 09/20/18 05:30 Neutrophils # 8.8 k/uL (1.3-7.7) H 09/20/18 05:30 Lymphocytes # 1.9 k/uL (1.0-4.8) 09/20/18 05:30 Monocytes # 0.7 k/uL (0-1.0) 09/20/18 05:30 Eosinophils # 0.3 k/uL (0-0.7) 09/20/18 05:30 Basophils # 0.1 k/uL (0-0.2) 09/20/18 05:30 Poikilocytosis Slight 09/20/18 05:30 Anisocytosis Slight 09/20/18 05:30 PT 10.2 sec (9.0-12.0) 09/20/18 05:30 INR 0.9 (<1.2) 09/20/18 05:30 APTT 19.4 sec (22.0-30.0) L 09/20/18 05:30 D-Dimer 0.66 mg/L FEU (<0.60) H 09/20/18 05:30 Sodium 140 mmol/L (137-145) 09/20/18 05:30 Potassium 4.3 mmol/L (3.5-5.1) 09/20/18 05:30 Chloride 97 mmol/L (98-107) L 09/20/18 05:30 Carbon Dioxide 29 mmol/L (22-30) 09/20/18 05:30 Anion Gap 14 mmol/L 09/20/18 05:30 BUN 44 mg/dL (9-20) H 09/20/18 05:30 Creatinine 1.34 mg/dL (0.66-1.25) H 09/20/18 05:30 Est GFR (CKD-EPI)AfAm 59 (>60 ml/min/1.73 sqM) 09/20/18 05:30 Est GFR (CKD-EPI)NonAf 51 (>60 ml/min/1.73 sqM) 09/20/18 05:30 Glucose 140 mg/dL (74-99) H 09/20/18 05:30 POC Glucose (mg/dL) 187 mg/dL (75-99) H 09/20/18 11:21 POC Glu Press Service Reader ID Adarsh, Zaida 09/20/18 11:21 Calcium 9.3 mg/dL (8.4-10.2) 09/20/18 05:30 Magnesium 1.2 mg/dL (1.6-2.3) L 09/20/18 05:30 Total Bilirubin 0.8 mg/dL (0.2-1.3) 09/20/18 05:30 AST 37 U/L (17-59) 09/20/18 05:30 ALT 30 U/L (21-72) 09/20/18 05:30 Alkaline Phosphatase 75 U/L (38-126) 09/20/18 05:30 Total Creatine Kinase 62 U/L (55-170) 09/20/18 05:30 CK-MB (CK-2) 1.1 ng/mL (0.0-2.4) 09/20/18 05:30 CK-MB (CK-2) Rel Index 1.8 09/20/18 05:30 Troponin I 0.055 ng/mL (0.000-0.034) H* 09/20/18 18:05 NT-Pro-B Natriuret Pep 570 pg/mL 09/20/18 11:40 Total Protein 7.2 g/dL (6.3-8.2) 09/20/18 05:30 Albumin 4.5 g/dL (3.5-5.0) 09/20/18 05:30 CBC & Chem 7: 09/20/18 05:30 09/20/18 05:30 Labs: Abnormal Lab Results - Last 24 Hours (Table) 09/20/18 09/20/18 09/20/18 Range/Units 05:30 11:21 11:40 D-Dimer 0.66 H (<0.60) mg/L FEU POC Glucose (mg/dL) 187 H (75-99) mg/dL Troponin I 0.071 H* (0.000-0.034) ng/mL 09/20/18 Range/Units 18:05 D-Dimer (<0.60) mg/L FEU POC Glucose (mg/dL) (75-99) mg/dL Troponin I 0.055 H* (0.000-0.034) ng/mL Assessment and Plan Plan: This is a 78-year-old male well known to ID service due to previous post CABG sternal wound infection with Acinetobacter and MRSA bacteremia. He has recently been treated for lower extremity cellulitis. Patient presents to hospital with complaints of sudden onset of shortness of breath and tingling of the left arm. Acute MO and heart failure have been ruled out by cardiology. Echocardiogram is pending. Patient also presents with bilateral lower extremity cellulitis. Local wound care and antibiotics will be addressed. Continue supportive care. Further recommendations as patient presses. The above dictated assessment and findings were discussed with Dr. Lala. The impression and plan of care have been directed as dictated. Rosa Gray nurse practitioner acting as scribe for Dr. Lala.
[2018-09-21] MEDS: metFORMIN 500 MG TAB PO SCH (09:35)
[2018-09-21] MEDS: ASPIRIN 325 MG TAB PO SCH (09:46)
[2018-09-21] MEDS: METOPROLOL TARTRATE 50 MG TAB PO SCH ×2 (09:46→20:28)
[2018-09-21] MEDS: amLODIPine 5 MG TAB PO SCH (09:46)
[2018-09-21] MEDS: ALLOPURINOL 300 MG TAB PO SCH (09:46)
[2018-09-21] MEDS: PANTOPRAZOLE 40 MG TABLET PO SCH (09:46)
[2018-09-21] MEDS: FUROSEMIDE 40 MG TAB PO SCH (09:46)
[2018-09-21] MEDS ORDERED: LACTULOSE 20 GM/30 ML CUP PO ONE (10:20)
[2018-09-21 11:04] LABS: Anisocytosis Slight; Basophils % (A) 0 %; Eosinophils # (A) 0.2 k/uL (0-0.7); Eosinophils % (A) 2 %; HCT 33.8 % (39.0-53.0); HGB 11.3 gm/dL (13.0-17.5); Lymphocytes # (A) 1.1 k/uL (1.0-4.8); Lymphocytes % (A) 11 %; MCH 32.1 pg (25.0-35.0); MCHC 33.5 g/dL (31.0-37.0); MCV 95.8 fL (80.0-100.0); Mean Platelet Volume 6.4; Monocytes # (A) 0.5 k/uL (0-1.0); Monocytes % (A) 6 %; Neutrophils # (A) 7.8 k/uL (1.3-7.7); Neutrophils % (A) 80 %; Platelet Count 300 k/uL (150-450); Poikilocytosis Slight; RBC 3.53 m/uL (4.30-5.90); RDW 16.8 % (11.5-15.5); WBC 9.8 k/uL (3.8-10.6)
[2018-09-21 11:15] LABS: Anion Gap 10 mmol/L; Blood Urea Nitrogen 29 mg/dL (9-20); Carbon Dioxide 30 mmol/L (22-30); Chloride 100 mmol/L (98-107); Cholesterol 129 mg/dL (<200); Glucose 154 mg/dL (74-99); HDL Cholesterol 34 mg/dL (40-60); LDL Cholesterol,Calculated 54 mg/dL (0-99); Magnesium 1.6 mg/dL (1.6-2.3); Potassium 3.4 mmol/L (3.5-5.1); Sodium 140 mmol/L (137-145); Triglycerides 207 mg/dL (<150)
--- NOTE | 2018-09-21 11:32 | US ---
EXAMINATION TYPE: US venous doppler duplex LE BI DATE OF EXAM: 09/21/2018 11:12 AM COMPARISON: Bilateral lower extremity venous ultrasound July 22, 2016 CLINICAL HISTORY: elevated DD. Patient receiving chemo. Swelling, redness. Difficult exam due to dom ent body habitus SIDE PERFORMED: Bilateral TECHNIQUE: The lower extremity deep venous system is examined utilizing real time linear array sonog pablo with graded compression, doppler sonography and color-flow sonography. VESSELS IMAGED: External Iliac Vein (EIV) Common Femoral Vein Deep Femoral Vein Greater Saphenous Vein * Femoral Vein Popliteal Vein Small Saphenous Vein * Proximal Calf Veins (* superficial vessels) Right Leg: Negative for DVT as visualized Left Leg: Negative for DVT as visualized Grayscale, color doppler, spectral doppler imaging performed of the deep veins of the bilateral lowe r extremities. There is normal flow, compressibility, vascular waveforms. IMPRESSION: Suboptimal study without convincing evidence of acute DVT on this study.
--- NOTE | 2018-09-21 11:51 | ECHOF ---
Referral Reason:Chest pain and cardiomyopathy MEASUREMENTS -------- HEIGHT: 180.3 cm WEIGHT: 140.6 kg BP: 145/60 RVIDd: 3.4 cm (< 3.3) IVSd: 1.7 cm (0.6 - 1.1) LVIDd: 4.0 cm (3.9 - 5.3) LVPWd: 1.4 cm (0.6 - 1.1) IVSs: 1.6 cm LVIDs: 3.4 cm LVPWs: 1.6 cm LA Diam: 3.3 cm (2.7 - 3.8) LAESV Index (A-L): 16.56 ml/m Ao Diam: 3.8 cm (2.0 - 3.7) AV Cusp: 2.5 cm (1.5 - 2.6) MV EXCURSION: 18.221 mm (> 18.000) MV EF SLOPE: 56 mm/s (70 - 150) EPSS: 0.9 cm MV E Mike: 0.79 m/s MV DecT: 257 ms MV A Mike: 1.00 m/s MV E/A Ratio: 0.79 RAP: 5.00 mmHg RVSP: 27.81 mmHg FINDINGS -------- Sinus rhythm. This was a technically adequate study. The left ventricular size is normal. There is moderate concentric left ventricular hypertrophy. O verall left ventricular systolic function is normal with, an EF between 55 - 60 %. The right ventricle is mildly enlarged. Normal LA size by volume 22+/-6 ml/m2. The right atrial size is normal. There is mild aortic valve sclerosis. Moderate mitral annular calcification present. Mild tricuspid regurgitation present. Right ventricular systolic pressure is normal at < 35 mmHg. Trace/mild (physiologic) pulmonic regurgitation. The aortic root is dilated measuring 3.8cm. IVC Not well visulized. There is no pericardial effusion. CONCLUSIONS -------- 1. Sinus rhythm. 2. This was a technically adequate study. 3. The left ventricular size is normal. 4. There is moderate concentric left ventricular hypertrophy. 5. Overall left ventricular systolic function is normal with, an EF between 55 - 60 %. 6. The right ventricle is mildly enlarged. 7. Normal LA size by volume 22+/-6 ml/m2. 8. There is mild aortic valve sclerosis. 9. Moderate mitral annular calcification present. 10. Mild tricuspid regurgitation present. 11. Right ventricular systolic pressure is normal at < 35 mmHg. 12. Trace/mild (physiologic) pulmonic regurgitation. 13. The aortic root is dilated measuring 3.8cm. 14. IVC Not well visulized. 15. There is no pericardial effusion. PORTAINER OPERATOR: Yanet Rockwell RDCS
[2018-09-21] MEDS ORDERED: POTASSIUM CHLORIDE ER 20 MEQ TAB.ER PO STA (13:00)
[2018-09-21] MEDS ORDERED: ALPRAZolam 0.5 MG TAB PO STA (14:35)
--- NOTE | 2018-09-21 15:32 | P.PN ---
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 Post surgery. Patient developed a sternal infection and had a long rehabitation time. For the last year, Patient has been treated with chemotherapy for lymphoma. Patient is now a dmitted to the hospital with complaints of intermittent shortness of breath with exertion. Before admission, patient woke up with shortness of breath and some tingling in the left arm. This shortness of breath is not severe as it was when he had myocardial infarctions. Denied any chest pain. His creatinine is 1.3. His troponin was mildly elevated. We're asked to see the patient for further e valuation. Patient had another troponin which is lower than the the troponin that he was was admitted with. The pattern is not consistent with acute myocardial infarctions. EKGs did not reveal any acute changes. His proBNP is within normal limits. His shortness of breath Could be multifactorial but there is no active evidence of CHF, or myocardial infarctions. I will obtain an echocardiogram to assess LV function. Further condition depend upon clinical course. 09/21/2018 A shunt had an echo cardiac gram with Doppler study performed which revealed a normal left ventricular systolic function. Troponins not consistent with acute coronary syndrome. Venous duplex study was performed today of the lower extremities which was negative for any DVT. BNP level was normal. Patient overall feels well today, we will obtain a CTA of the chest to rule out pulmonary embolism. Objective - Vital Signs Vital signs: Vital Signs Temp 97.3 F L 09/21/18 09:54 Pulse 74 09/21/18 09:54 Resp 18 09/21/18 09:54 BP 149/67 09/21/18 09:54 Pulse Ox 95 09/21/18 09:54 Intake & Output 09/20/18 09/21/18 09/21/18 18:59 06:59 18:59 Intake Total 360 1240 480 Output Total 0 Balance 360 1240 480 Weight 140.7 kg Intake: IV 440 normal saline 440 Oral 360 800 480 Output: Urine 0 Other: Voiding Method Toilet Toilet # Voids 1 2 2 # Bowel Movements 0 - Exam GENERAL EXAM: Patient is alert and oriented and doesn't appear to be in any acute distress HEENT: Normocephalic. Normal reaction of pupils, equal size, normal range of extraocular motion. No erythema or exudates in the throat. NECK: No masses, no nuchal rigidity. CHEST: No chest wall deformity. LUNGS: Diminished air exchang HEART: S1 and S2 normal with no audible mumurs or gallops. Regular rhythm, femorals equal on both sides.. ABDOMEN: No hepatosplenomegaly, normal bowel sounds, no guarding or rigidity. SKIN: No rashes CENTRAL NERVOUS SYSTEM: No focal deficits. EXTREMITIES: Mild edema - Labs CBC & Chem 7: 09/21/18 10:45 09/21/18 06:00 Labs: Abnormal Lab Results - Last 24 Hours (Table) 09/20/18 09/21/18 09/21/18 Range/Units 18:05 06:00 10:45 RBC 3.53 L (4.30-5.90) m/uL Hgb 11.3 L (13.0-17.5) gm/dL Hct 33.8 L (39.0-53.0) % RDW 16.8 H (11.5-15.5) % Neutrophils # 7.8 H (1.3-7.7) k/uL Potassium 3.4 L (3.5-5.1) mmol/L BUN 29 H (9-20) mg/dL Glucose 154 H (74-99) mg/dL Troponin I 0.055 H* (0.000-0.034) ng/mL Triglycerides 207 H (<150) mg/dL HDL Cholesterol 34 L (40-60) mg/dL Assessment and Plan Plan: Assessment and plan #1 shortness of breath, no evidence of congestive cardiac failure. #2 troponin abnormality not consistent with acute coronary syndrome. Echo revealed normal left ventricular systolic function #3 COPD #4 coronary artery disease history Plan Venous duplex study of the lower extremities was negative for DVT, we would recommend patient undergo a CT of the chest to rule out pulmonary embolism. D- dimer came back mildly elevated at 0.66. DNP note has been reviewed, I agree with a documented findings and plan of care. Patient was seen and examined.
--- NOTE | 2018-09-21 15:43 | P.CON ---
Consult Note - . Consult date: 09/21/18 Assessment/Plan:: This is a 78-year-old male well-known to ID service as he has history of previous non-ST HI and on heart catheterization was found to have severe coronary artery disease and left distal main thrombosis and subsequently underwe nt a four-vessel coronary artery bypass graft procedure and sternal repair with cable and plate system. He was in rehab at [facility] for extensive period treated for sternal wound infection with Acientobacter and MRSA bacteremia. Patient has more recently been treated for lower extremity cellulitis and nonhealing ulcers. Patient states his lower extremities were doing very well until about 3 weeks ago and then he developed increasing redness swelling and open wounds. The patient came into the hospital regarding shortness of breath and tingling of his left arm. He has been seen by cardiology and has been cleared of myocardial infarction or heart failure. Echocardiogram is being performed at this time. Patient is expecting to go home later today. He has been afebrile and denies any fever or chills at home. Vital signs have been stable. White count 11.8, creatinine 1.34. No antibiotics have been given. No local wound care has been addressed. The patient also has known history of lymphoma on chemotherapy under the care of Dr. Dr. Burton with most recent PET scan in April 2018 showing the largest mid abdomen region stable in size and appearance. No new abnormal hypermetabolic uptake. Please see the consult note as dictated by CASTING MACHINE SERVICE OPERATOR Mrs Rosa Gray. Pleasant 78-year-old male presents to Hospital with the difficulty of the increasing lower extremity edema no associated with some redness and dry cracked skin lower extremities. The patient has a known history of significant coronary artery disease status post CABG in the extensive prior sternal wound infection. He's had some difficulty with lower extremity edema that is now considerably worse. As noted he has a history of the B-cell lymphoma under the care of Dr. Burton. He last received chemotherapy a few days prior. In general is doing relatively well without high-grade fevers, chills or rigors but he did have the difficulty with the fatigue malaise and increasing lower extremity edema and some tingling to his left arm. With his history of significant coronary disease who presented to Hospital. He has now had some diuresis and feels better. We'll ensure the bilateral lower extremities are treated with Silvadene rolled gauze and wraps which he is tolerating very well in the past. This continued to his legs improved. And then he needs to continue elevation and compression. Given the left leg has evidence of the bit of erythema, the fact is immunocompromised oral cephalosporin with Keflex will be utilized. He should follow-up in the office to ensure that he has had a good recovery if he is discharged home the next short period of time. Fortunately does not appear to have sepsis. Cardiology is following. I agree with the evaluation assessment and plan as dictated by CASTING MACHINE SERVICE OPERATOR Mrs. Rosa Gray.
--- NOTE | 2018-09-21 16:27 | NM ---
EXAMINATION TYPE: NM pul vent and perfuse DATE OF EXAM: 09/21/2018 COMPARISON: NONE HISTORY: Shortness of breath TECHNIQUE: Utilizing inhalation of 70.1 mCi Tc 99m DTPA aerosol and intravenous injection of 5.19 mC i of Tc 99m MAA, ventilation and perfusion images are acquired post injection in multiple projections . FINDINGS: Normal radiotracer distribution is noted in the lungs. There is no evidence of mismatched defects. IMPRESSION: Very low probability for pulmonary embolism.
[2018-09-21] MEDS: CEPHALEXIN 500 MG CAP PO SCH ×2 (17:51→20:28)
[2018-09-21] MEDS: MELATONIN 5 MG TABLET PO SCH (20:28)
[2018-09-21] MEDS: ATORVASTATIN 40 MG TAB PO SCH (20:28)
[2018-09-21] MEDS: SILVER sulfADIAZINE Cream 400 GM 1 APPLIC APPLIC TOPICAL SCH (20:28)
[2018-09-22 06:50] LABS: Anisocytosis Slight; HCT 36.1 % (39.0-53.0); HGB 11.9 gm/dL (13.0-17.5); MCH 32.2 pg (25.0-35.0); MCHC 33.1 g/dL (31.0-37.0); MCV 97.4 fL (80.0-100.0); Macrocytosis Slight; Mean Platelet Volume 6.2; Platelet Count 266 k/uL (150-450); Poikilocytosis Slight; RDW 16.8 % (11.5-15.5)
[2018-09-22 06:59] LABS: Calcium 9.1 mg/dL (8.4-10.2); Magnesium 1.5 mg/dL (1.6-2.3); Potassium 3.3 mmol/L (3.5-5.1)
[2018-09-22] MEDS: FUROSEMIDE 40 MG TAB PO SCH (09:00)
[2018-09-22] MEDS: ALLOPURINOL 300 MG TAB PO SCH (09:00)
[2018-09-22] MEDS: METOPROLOL TARTRATE 50 MG TAB PO SCH (09:00)
[2018-09-22] MEDS: ASPIRIN 325 MG TAB PO SCH ×2 (09:00→09:04)
[2018-09-22] MEDS: CEPHALEXIN 500 MG CAP PO SCH (09:00)
[2018-09-22] MEDS: amLODIPine 5 MG TAB PO SCH (09:00)
[2018-09-22] MEDS: PANTOPRAZOLE 40 MG TABLET PO SCH (09:01)
[2018-09-22] MEDS: SILVER sulfADIAZINE Cream 400 GM 1 APPLIC APPLIC TOPICAL SCH (09:01)
--- NOTE | 2018-09-22 13:30 | P.PN ---
Subjective Progress Note Date: 09/22/18 This is a 78-year-old male well-known to ID service as he has history of previous non-ST MA and on heart catheterization was found to have severe coronary artery disease and left distal main thrombosis and subsequently underwent a four-vessel coronary artery bypass graft procedure and sternal re pair with cable and plate system. He was in rehab at [facility] for extensive period treated for sternal wound infection with Acientobacter and MRSA bacteremia. Patient has more recently been treated for lower extremity cellulitis and nonhealing ulcers. Patient states his lower extremities were doing very well until about 3 weeks ago and then he developed increasing redness swelling and open wounds. The patient came into the hospital regarding shortness of breath and tingling of his left arm. He has been seen by cardiology and has been cleared of myocardial infarction or heart failure. Echo cardiogram is being performed at this time. Patient is expecting to go home later today. He has been afebrile and denies any fever or chills at home. Vital signs have been stable. White count 11.8, creatinine 1.34. No antibiotics have been given. No local wound care has been addressed. The pat dawn also has known history of lymphoma on chemotherapy under the care of Dr. Dr. Burton with most recent PET scan in April 2018 showing the largest mid abdomen region stable in size and appearance. No new abnormal hypermetabolic uptake. 09/22/2018 patient is feeling somewhat better today. He is having no difficulties as fevers or chills. He relates no significant new discomforts. Leg swelling and edema has improved. No no chest pains, shortness of breath is improved, left arm tingling is resolved. The patient overall is feeling better than this admission. Potential for discharge home soon. Relates that the wraps and elevation of the legs has helped the swelling quite a bit. Objective - Vital Signs Vital signs: Vital Signs Temp 98.1 F 09/22/18 08:15 Pulse 72 09/22/18 08:15 Resp 18 09/22/18 08:15 BP 140/55 09/22/18 08:15 Pulse Ox 95 09/22/18 08:15 Intake & Output 09/21/18 09/22/18 09/22/18 18:59 06:59 18:59 Intake Total 480 480 Balance 480 480 Weight 140 kg Intake: Oral 480 480 Other: Voiding Method Toilet Toilet # Voids 2 2 # Bowel Movements 0 - Exam Gen: This is a morbidly obese 78-year-old male. He is resting in a recliner and appears to be comfortable and in no acute distress. No respiratory distress is noted. HEENT: Head is atraumatic, normocephalic. Pupils equal, round. Sclerae is anicteric. NECK: Supple. No JVD. No lymphadenopathy. No thyromegaly. LUNGS: Clear to auscultation. No wheezes or rhonchi. No intercostal retractions. No accessory muscle usage. HEART: Regular rate and rhythm. No murmur. ABDOMEN: Soft. Bowel sounds are present. No masses. No tenderness. EXTREMITIES: 1+ bilateral lower extreme edema. There is erythema and warmth to bilateral lower extremities more so on the left with few areas of scabbing, are improving. Dorsalis pedis is +1 bilaterally. No ulcers on the heels or feet. NEUROLOGICAL: Patient is awake, alert and oriented x3. - Labs CBC & Chem 7: 09/22/18 06:27 09/22/18 06:27 Labs: Abnormal Lab Results - Last 24 Hours (Table) 09/22/18 09/22/18 Range/Units 06:27 06:27 WBC 11.0 H (3.8-10.6) k/uL RBC 3.70 L (4.30-5.90) m/uL Hgb 11.9 L (13.0-17.5) gm/dL Hct 36.1 L (39.0-53.0) % RDW 16.8 H (11.5-15.5) % Potassium 3.3 L (3.5-5.1) mmol/L BUN 26 H (9-20) mg/dL Glucose 137 H (74-99) mg/dL Magnesium 1.5 L (1.6-2.3) mg/dL Laboratory Results WBC 11.0 k/uL (3.8-10.6) H 09/22/18 06:27 RBC 3.70 m/uL (4.30-5.90) L 09/22/18 06:27 Hgb 11.9 gm/dL (13.0-17.5) L 09/22/18 06:27 Hct 36.1 % (39.0-53.0) L 09/22/18 06:27 MCV 97.4 fL (80.0-100.0) 09/22/18 06:27 MCH 32.2 pg (25.0-35.0) 09/22/18 06:27 MCHC 33.1 g/dL (31.0-37.0) 09/22/18 06:27 RDW 16.8 % (11.5-15.5) H 09/22/18 06:27 Plt Count 266 k/uL (150-450) 09/22/18 06:27 Neutrophils % 80 % 09/21/18 10:45 Lymphocytes % 11 % 09/21/18 10:45 Monocytes % 6 % 09/21/18 10:45 Eosinophils % 2 % 09/21/18 10:45 Basophils % 0 % 09/21/18 10:45 Neutrophils # 7.8 k/uL (1.3-7.7) H 09/21/18 10:45 Lymphocytes # 1.1 k/uL (1.0-4.8) 09/21/18 10:45 Monocytes # 0.5 k/uL (0-1.0) 09/21/18 10:45 Eosinophils # 0.2 k/uL (0-0.7) 09/21/18 10:45 Basophils # 0.0 k/uL (0-0.2) 09/21/18 10:45 Poikilocytosis Slight 09/22/18 06:27 Anisocytosis Slight 09/22/18 06:27 Macrocytosis Slight 09/22/18 06:27 PT 10.2 sec (9.0-12.0) 09/20/18 05:30 INR 0.9 (<1.2) 09/20/18 05:30 APTT 19.4 sec (22.0-30.0) L 09/20/18 05:30 D-Dimer 0.66 mg/L FEU (<0.60) H 09/20/18 05:30 Sodium 140 mmol/L (137-145) 09/22/18 06:27 Potassium 3.3 mmol/L (3.5-5.1) L 09/22/18 06:27 Chloride 100 mmol/L (98-107) 09/22/18 06:27 Carbon Dioxide 30 mmol/L (22-30) 09/22/18 06:27 Anion Gap 10 mmol/L 09/22/18 06:27 BUN 26 mg/dL (9-20) H 09/22/18 06:27 Creatinine 1.01 mg/dL (0.66-1.25) 09/22/18 06:27 Est GFR (CKD-EPI)AfAm 83 (>60 ml/min/1.73 sqM) 09/22/18 06:27 Est GFR (CKD-EPI)NonAf 72 (>60 ml/min/1.73 sqM) 09/22/18 06:27 Glucose 137 mg/dL (74-99) H 09/22/18 06:27 POC Glucose (mg/dL) 187 mg/dL (75-99) H 09/20/18 11:21 POC Glu Button Cutting Machine Operator ID Zaida Altamirano 09/20/18 11:21 Calcium 9.1 mg/dL (8.4-10.2) 09/22/18 06:27 Magnesium 1.5 mg/dL (1.6-2.3) L 09/22/18 06:27 Total Bilirubin 0.8 mg/dL (0.2-1.3) 09/20/18 05:30 AST 37 U/L (17-59) 09/20/18 05:30 ALT 30 U/L (21-72) 09/20/18 05:30 Alkaline Phosphatase 75 U/L (38-126) 09/20/18 05:30 Total Creatine Kinase 62 U/L (55-170) 09/20/18 05:30 CK-MB (CK-2) 1.1 ng/mL (0.0-2.4) 09/20/18 05:30 CK-MB (CK-2) Rel Index 1.8 09/20/18 05:30 Troponin I 0.055 ng/mL (0.000-0.034) H* 09/20/18 18:05 NT-Pro-B Natriuret Pep 570 pg/mL 09/20/18 11:40 Total Protein 7.2 g/dL (6.3-8.2) 09/20/18 05:30 Albumin 4.5 g/dL (3.5-5.0) 09/20/18 05:30 Triglycerides 207 mg/dL (<150) H 09/21/18 06:00 Cholesterol 129 mg/dL (<200) 09/21/18 06:00 LDL Cholesterol, Calc 54 mg/dL (0-99) 09/21/18 06:00 HDL Cholesterol 34 mg/dL (40-60) L 09/21/18 06:00 Assessment and Plan (1) Venous stasis of both lower extremities Narrative/Plan: Pleasant 78-year-old male presents to Hospital with the difficulty of the increasing lower extremity edema no associated with some redness and dry cracked skin lower extremities. The patient has a known history of significant coronary artery disease status post CABG in the extensive prior sternal wound infection. He's had some difficulty with lower extremity edema that is now considerably worse. As noted he has a history of the B-cell lymphoma under the care of Dr. Burton. He last received chemotherapy a few days prior. In general is doing relatively well without high-grade fevers, chills or rigors but he did have the difficulty with the fatigue malaise and increasing lower extremity edema and some tingling to his left arm. With his history of sign ificant coronary disease who presented to Hospital. He has now had some diuresis and feels better. We'll ensure the bilateral lower extremities are treated with Silvadene rolled gauze and wraps which he is tolerating very well in the past. This continued to his legs improved. And then he needs to continue elevation and compression. Given the left leg has evidence of the bit of erythema, the fact is immunocompromised oral cephalosporin with Keflex will be utilized. He should follow-up in the office to ensure that he has had a good recovery if he is discharged home the next short period of time. Fortunately does not appear to have sepsis. Cardiology is following. 09/22/2018 has improved the leg swelling is improved and is tolerating the wraps and Silvadene well. He is being evaluated by cardiology and medicine likely for discharge home today. She continued to utilize a Silvadene wrap the legs on a daily basis in the outpatient setting. Would be happy to see him in the office in the next few weeks to see if is completely resolved. Keflex sent to his home pharmacy also. Current Visit: No Status: Acute Code(s): I87.8 - OTHER SPECIFIED DISORDERS OF VEINS SNOMED Code(s): 243249591
[2018-09-22] MEDS: MAGNESIUM SULFATE-D5W PMX 1 GM in DEXTROSE/WATER 1 100ML.BAG IVPB SCH ×2 (13:52→14:56)
[2018-09-22] MEDS ORDERED: POTASSIUM CHLORIDE ER 20 MEQ TAB.ER PO SCH (14:00)
[2018-09-22] MEDS ORDERED: POTASSIUM CHLORIDE ER 20 MEQ TAB.ER PO STA (14:08)
--- NOTE | 2018-09-22 14:09 | P.PN ---
Subjective Progress Note Date: 09/22/18 This is a 78-year-old gentleman with history of ischemic heart disease with previous bypass surgery done about 2 years ago. Post surgery. Patient developed a sternal infection and had a long rehabitation time. For the last year, Patient has been treated with chemotherapy for lymphoma. Patient is now a dmitted to the hospital with complaints of intermittent shortness of breath with exertion. Before admission, patient woke up with shortness of breath and some tingling in the left arm. This shortness of breath is not severe as it was when he had myocardial infarctions. Denied any chest pain. His creatinine is 1.3. His troponin was mildly elevated. We're asked to see the patient for further e valuation. Patient had another troponin which is lower than the the troponin that he was was admitted with. The pattern is not consistent with acute myocardial infarctions. EKGs did not reveal any acute changes. His proBNP is within normal limits. His shortness of breath Could be multifactorial but there is no active evidence of CHF, or myocardial infarctions. I will obtain an echocardiogram to assess LV function. Further condition depend upon clinical course. 09/21/2018 Patient had an echo cardiac gram with Doppler study performed which revealed a normal left ventricular systolic function. Troponins not consistent with acute coronary syndrome. Venous duplex study was performed today of the lower extremities which was negative for any DVT. BNP level was normal. Patient overall feels well today, we will obtain a CTA of the chest to rule out pulmonary embolism. 09/22/2017 Patient seen and examined this morning, VQ scan low probability for PE, no evidence of DVT on venous duplex. Feels well, no shortness of breath. Eager to be discharged today. is at questioning regarding the cause of the shortness of breath. He has seen Dr. Ferreira in the past, we will request him to see him today. He may be able to be discharged home from our perspective. Objective - Vital Signs Vital signs: Vital Signs Temp 98.1 F 09/22/18 08:15 Pulse 67 09/22/18 12:10 Resp 18 09/22/18 12:10 BP 113/59 09/22/18 12:10 Pulse Ox 94 L 09/22/18 12:10 Intake & Output 09/21/18 09/22/18 09/22/18 18:59 06:59 18:59 Intake Total 480 480 Balance 480 480 Weight 140 kg Intake: Oral 480 480 Other: Voiding Method Toilet Toilet # Voids 2 2 # Bowel Movements 0 - Exam GENERAL EXAM: Patient is alert and oriented and doesn't appear to be in any acute distress HEENT: Normocephalic. Normal reaction of pupils, equal size, normal range of extraocular motion. No erythema or exudates in the throat. NECK: No masses, no nuchal rigidity. CHEST: No chest wall deformity. LUNGS: Diminished air exchang HEART: S1 and S2 normal with no audible mumurs or gallops. Regular rhythm, femorals equal on both sides.. ABDOMEN: No hepatosplenomegaly, normal bowel sounds, no guarding or rigidity. SKIN: No rashes CENTRAL NERVOUS SYSTEM: No focal deficits. EXTREMITIES: Mild edema - Labs CBC & Chem 7: 09/22/18 06:27 09/22/18 06:27 Labs: Abnormal Lab Results - Last 24 Hours (Table) 09/22/18 09/22/18 Range/Units 06:27 06:27 WBC 11.0 H (3.8-10.6) k/uL RBC 3.70 L (4.30-5.90) m/uL Hgb 11.9 L (13.0-17.5) gm/dL Hct 36.1 L (39.0-53.0) % RDW 16.8 H (11.5-15.5) % Potassium 3.3 L (3.5-5.1) mmol/L BUN 26 H (9-20) mg/dL Glucose 137 H (74-99) mg/dL Magnesium 1.5 L (1.6-2.3) mg/dL Assessment and Plan Plan: Assessment and plan #1 shortness of breath, no evidence of congestive cardiac failure. #2 troponin abnormality not consistent with acute coronary syndrome. Echo revealed normal left ventricular systolic function #3 COPD #4 coronary artery disease history Plan Venous duplex study of the lower extremities was negative for DVT, VQ scan low probability for PE. We will consult with pulmonary, patient may be able to be discharged home today from our perspective. We'll make a follow-up appointment in the office with Dr. Lara post discharge. DNP note has been reviewed, I agree with a documented findings and plan of care. Patient was seen and examined.
--- NOTE | 2018-09-22 14:44 | P.CNPUL ---
History of Present Illness Consult date: 09/22/18 Requesting physician: Oliva Ferris Reason for consult: dyspnea, cough, other Chief complaint: Dyspnea, cough, phlegm production History of present illness: This is a 78-year-old white male patient with past medical history significant for coronary artery disease with history of four-vessel bypass grafting in 2017, patient had a complicated postoperative course, he developed a sternal infection with Acinetobacter and MRSA bacteremia, had a long rehabilitation time. Patient has history of lymphoma on chemotherapy under the care of Dr. Burton. Other medical history includes hypertension, hyperlipidemia, recurrent infarction, osteoarthritis, sleep apnea not on CPAP therapy. Patient does have history of smoking, currently in remission, he quit smoking 35 years ago, but did smoke for 25 years a pack a day. Patient is not on oxygen, he was seen by Dr. Dr. Ferreira in the past, but had not seen him in the last 2 years, he had outpatient PFT in the office, which showed FEV1 of 56% of predicted, an FVC of 58%, with good response to bronchodilators, and diffusion capacity of 88%, moderately severe obstruction, with a component of restriction, more likely related to asthma than COPD, a stent good response to bronchodilators, and normal diffusion capacity. Patient was prescribed Symbicort, and Combivent, but patient has been noncompliant with Symbicort, and the results are unknown. He states he had a sleep study on an outpatient basis twice, and he could not complete those. Does not currently wear CPAP, he has been sleeping in the recliner for the past 2 years, related to his back pain, other medical history includes type 2 diabetes mellitus, morbid obesity, gout, iron deficiency anemia, history of lower extremity cellulitis. Patient came into the hospital on 09/20/2018 with complaints of dyspnea, some cough, some phlegm production, and patient was having some left upper extremity numbness, which resembled his past chest pain with NM. Chest x-ray showed no evidence of acute cardiopulmonary disease, EKG showed normal sinus rhythm with a rate of 72, with no evidence of acute ischemic changes, repeat EKG showed normal sinus rhythm with evidence of inferior infarct of undetermined age. Echocardiogram showed EF of 55-60%, mild aortic valve sclerosis, mild TR, evidence of pulmonary hypertension. Labs showed no significant leukocytosis, white blood cell count was 11.8, hemoglobin is 12.7, d-dimer was mildly elevated to 0.66, BUN was 44, creatinine is 1.34, there was mild elevation of troponins, and 0.099, 0.071, 0.055. BNP within normal limits at 570. VQ scan showed very low probability for pulmonary embolism. Sound of lower extremities show no evidence of DVT. Patient was evaluated by cardiology, and no significant abnormality was found, and patient is cleared by cardiology for discharge. ID service is seen the patient for lower extremity cellulitis. We were asked to see the patient in consultation for investigation of pulmonary causes for shortness of breath. During her evaluation patient is sitting up in the recliner, in no acute distress, lung sounds are relatively clear to auscultation, no wheezing, no rhonchi or rales, with air pulse ox is 94%, no fever or chills, hemodynamically stable, no chest pain. No cough, chest congestion, no phlegm production. He is on oral Lasix, oral Keflex, the patient is on Silvadene cream with dry dressings for local care to lower extremity cellulitis. Review of Systems All systems: negative Constitutional: Denies chills, Denies fever Eyes: denies blurred vision, denies pain Ears, nose, mouth and throat: Denies headache, Denies sore throat Cardiovascular: Denies chest pain, Denies shortness of breath Respiratory: Reports cough, Reports cough with sputum, Reports dyspnea Gastrointestinal: Denies abdominal pain, Denies diarrhea, Denies nausea, Denies vomiting Musculoskeletal: Denies myalgias Musculoskeletal: bilateral: knee swelling Integumentary: Denies pruritus, Denies rash Neurological: Denies numbness, Denies weakness Psychiatric: Denies anxiety, Denies depression Endocrine: Denies fatigue, Denies weight change Past Medical History Past Medical History: Coronary Artery Disease (CAD), Cancer, GERD/Reflux, Hyperlipidemia, Hypertension, Myocardial Infarction (NM), Musculoskeletal Disorder, Osteoarthritis (OA), Sleep Apnea/CPAP/BIPAP Additional Past Medical History / Comment(s): SKIN CANCER , GOUT CHRONIC BACK,SKIN LESIONS , chemo 09/18/2018 Last Myocardial Infarction Date:: MAY 2016 History of Any Multi-Drug Resistant Organisms: MRSA Date of last positivie culture/infection: 07/22/16 MDRO Source:: LOWER LEGS Past Surgical History: Cholecystectomy, Coronary Bypass/CABG, Heart Catheterization Additional Past Surgical History / Comment(s): PICC line insertion/removed, bilateral caract removals, COLONOSCOPY, EGD, CANCEROUS SKIN LESIONS REMOVED, TOTAL RIGHT KNEE REPLACEMENT, 06-04-16 QUAD BYPASS Past Anesthesia/Blood Transfusion Reactions: Previous Problems w/ Anesthesia Additional Past Anesthesia/Blood Transfusion Reaction / Comment(s): HAD A HARD TIME COMING OUT OF ANESTHESIA AFTER CHOLECYSTECTOMY Past Psychological History: No Psychological Hx Reported Smoking Status: Former smoker Past Alcohol Use History: None Reported Additional Past Alcohol Use History / Comment(s): Pt quit smoking in 1988, STARTED SMOKING AT AGE 18 SMOKED 1 PPD. He denies any illicit drug use, no alcohol use. He is currently living at home with his but did go to [facility] in the past due to sternal wound infection and IV antibiotic needs. He is ambulating without device. 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 He was in the [employer] and was in [place]. No animal exposures. No extensive travels. Past Drug Use History: None Reported - Past Family History Father Family Medical History: Vascular Disorder Additional Family Medical History / Comment(s): POOR CIRCULATION-HAD AMPUTATIONS D/T POOR CIRCULATION Mother Family Medical History: Cancer Additional Family Medical History / Comment(s): STOMACH CANCER Medications and Allergies Home Medications Medication Instructions Recorded Confirmed Type Pantoprazole [Protonix] 40 mg PO DAILY 06/19/16 09/20/18 History metFORMIN HCL [Glucophage] 500 mg PO BID 06/19/16 09/20/18 History Atorvastatin [Lipitor] 40 mg PO HS 07/21/16 09/20/18 History amLODIPine [Norvasc] 5 mg PO DAILY 07/21/16 09/20/18 History Allopurinol [Zyloprim] 300 mg PO DAILY 07/22/16 09/20/18 History Metoprolol Tartrate [Lopressor] 150 mg PO BID 10/25/16 09/20/18 History Furosemide [Lasix] 40 mg PO DAILY 01/11/17 09/20/18 History Aspirin EC [Ecotrin Low Dose] 162 mg PO DAILY PRN 09/20/18 09/20/18 History Colchicine 0.6 mg PO DAILY PRN 09/20/18 09/20/18 History HYDROcodone/APAP 5-325MG [[place] 1 tab PO DAILY PRN 09/20/18 09/20/18 History 5-325] Cephalexin [Keflex] 500 mg PO Q8HR #21 cap 09/22/18 Rx Metolazone [Zaroxolyn] 5 mg PO DAILY 09/22/18 09/22/18 History Allergies Allergy/AdvReac Type Severity Reaction Status Date / Time No Known Allergies Allergy Verified 09/20/18 07:07 Physical Exam Vitals: Vital Signs Temp Pulse Resp BP Pulse Ox 09/22/18 12:10 67 18 113/59 94 L 09/22/18 08:15 98.1 F 72 18 140/55 95 09/22/18 04:00 97.8 F 82 18 145/72 97 09/22/18 00:00 89 18 135/63 96 09/21/18 20:00 98 F 86 18 180/79 95 09/21/18 16:00 98.0 F 69 18 112/53 95 Intake and Output 09/21/18 09/22/18 09/22/18 22:59 06:59 14:59 Intake Total 480 Balance 480 Intake: Oral 480 Other: Voiding Method Toilet Toilet # Voids 1 2 Weight 140 kg GENERAL EXAM: Alert, doesn't, morbidly obese 78-year-old white male, on room air, comfortable in no apparent distress. HEAD: Normocephalic/atraumatic. EYES: Normal reaction of pupils, equal size. Conjunctiva pink, sclera white. NOSE: Clear with pink turbinates. THROAT: No erythema or exudates. NECK: No masses, no JVD, no thyroid enlargement, no adenopathy. CHEST: No chest wall deformity. Symmetrical expansion. LUNGS: Equal air entry with no crackles, wheeze, rhonchi or dullness. CVS: Regular rate and rhythm, normal S1 and S2, no gallops, no murmurs, no rubs ABDOMEN: Soft, nontender. No hepatosplenomegaly, normal bowel sounds, no guarding or rigidity. EXTREMITIES: No clubbing, lower extremity edema, and redness in the lower extremities, no cyanosis, 2+ pulses and upper and lower extremities. MUSCULOSKELETAL: Muscle strength and tone normal. SPINE: No scoliosis or deformity SKIN: No rashes CENTRAL NERVOUS SYSTEM: Alert and oriented -3. No focal deficits, tone is normal in all 4 extremities. PSYCHIATRIC: Alert and oriented -3. Appropriate affect. Intact judgment and insight. Results - Laboratory Findings CBC and BMP: 09/22/18 06:27 09/22/18 06:27 PT/INR, D-dimer PT 10.2 sec (9.0-12.0) 09/20/18 05:30 INR 0.9 (<1.2) 09/20/18 05:30 D-Dimer 0.66 mg/L FEU (<0.60) H 09/20/18 05:30 Abnormal lab findings: Abnormal Labs 09/20/18 09/20/18 09/20/18 05:30 05:30 05:30 WBC 11.8 H RBC 4.01 L Hgb 12.7 L Hct 38.2 L RDW 16.8 H Neutrophils # 8.8 H APTT 19.4 L D-Dimer Potassium Chloride 97 L BUN 44 H Creatinine 1.34 H Glucose 140 H POC Glucose (mg/dL) Magnesium 1.2 L Troponin I Triglycerides HDL Cholesterol 09/20/18 09/20/18 09/20/18 05:30 05:30 11:21 WBC RBC Hgb Hct RDW Neutrophils # APTT D-Dimer 0.66 H Potassium Chloride BUN Creatinine Glucose POC Glucose (mg/dL) 187 H Magnesium Troponin I 0.099 H* Triglycerides HDL Cholesterol 09/20/18 09/20/18 09/21/18 11:40 18:05 06:00 WBC RBC Hgb Hct RDW Neutrophils # APTT D-Dimer Potassium 3.4 L Chloride BUN 29 H Creatinine Glucose 154 H POC Glucose (mg/dL) Magnesium Troponin I 0.071 H* 0.055 H* Triglycerides 207 H HDL Cholesterol 34 L 09/21/18 09/22/18 09/22/18 10:45 06:27 06:27 WBC 11.0 H RBC 3.53 L 3.70 L Hgb 11.3 L 11.9 L Hct 33.8 L 36.1 L RDW 16.8 H 16.8 H Neutrophils # 7.8 H APTT D-Dimer Potassium 3.3 L Chloride BUN 26 H Creatinine Glucose 137 H POC Glucose (mg/dL) Magnesium 1.5 L Troponin I Triglycerides HDL Cholesterol - Diagnostic Findings Chest x-ray: report reviewed, image reviewed Additional studies: VQ scan results, echocardiogram results, EKG Assessment and Plan Plan: Assessment: #1. Dyspnea, and left arm numbness, the patient was ruled out for acute coronary event #2. Mild elevation of troponins, with negative EKG, which no acute ischemic changes, no evidence of CHF on the chest x-ray, BMP was within normal limits #3. History of COPD/asthma, outpatient PFT in 2017, showed moderately severe COPD, with FEV1 of 56%, FVC of 58%, good response to bronchodilators, and normal diffusion capacity. 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 History of coronary artery disease, with history of four-vessel bypass grafting in 2017 with subsequent sternal infection, with MDR, Acinetobacter, and MRSA, and had a complicated postoperative course and prolonged recovery #5. Probable underlying obstructive sleep apnea, patient had 2 sleep studies which he could not complete, currently not on CPAP therapy #6. Medical noncompliance, patient has not been taking his inhalers 9 #7. Nicotine dependence, patient quit smoking 35 years ago, but does carry [id number] smoking history #8. Lymphoma, on chemotherapy #9. Hypertension, hyperlipidemia, morbid obesity #10. Lower extremity cellulitis Plan: Patient denies any shortness of breath, vital signs are stable, no wheezing, no chest congestion or coughing, from pulmonary perspective he is stable for discharge home, if he is cleared by cardiology. He will need outpatient follow- up with Dr. Hendreson in the office, he has not been taking his inhalers, he has not been able to complete sleep studies. We will have to address that on an outpatient basis, currently his COPD is inactive. Chest x-ray has been reviewed and showed no evidence of CHF, or pneumonic infiltrate. VQ scan was low probability for pulmonary embolism, he is being treated for lower extremity cellulitis, his vitals have been stable. Follow-up with Dr. Ferreira in the office in 7-10 days I performed a history & physical examination of the patient and discussed their management with my nurse practitioner, Eve Pettit. I reviewed the nurse practitioner's note and agree with the documented findings and plan of care. Lung sounds are positive for clear breath sounds. The findings and the impression was discussed with the patient. I attest to the documentation by the nurse practitioner. Time with Patient: Greater than 30
[2018-09-22 16:01] VITALS: BP 139/65; PULSE 75; RESP 17; TEMP 98
[2018-09-23] MEDS ORDERED: ASPIRIN 81 MG PO SCH (09:00)
--- NOTE | 2018-09-24 14:21 | PN ---
PROGRESS NOTE DATE OF SERVICE: 09/21/2018 PRESENTING COMPLAINT: Redness in the legs. INTERVAL HISTORY: This patient was seen by me on 09/21/2018. Patient presented with some shortness of breath, slight congestion in the chest. PE is felt to be unlikely. Cardiology was consulted. Patient's Doppler ultrasound did come back negative for any DVT and V/Q scan that was ordered showed low probability. The patient otherwise is feeling much better. Lower extremity redness is felt to be from venous stasis for which patient is seen by Dr. Spike kulkarni. REVIEW OF SYSTEMS: Done for constitutional, cardiovascular, GI, pulmonary; relevant findings as above. CURRENT MEDICATIONS: Reviewed. Silvadene cream was also ordered. PHYSICAL EXAMINATION: Temperature 97.3, pulse 74, respiratory 18, blood pressure 149/67, pulse ox 95% on room air. Sitting up, comfortable. EYES: Pupils equal, conjunctivae are normal. NECK: JVD not raised. Mass not palpable. RESPIRATORY: Effort normal. LUNGS: Slightly decreased breath sounds. CARDIOVASCULAR: First and second sounds are normal, some edema. ABDOMEN: Soft, nontender. Liver and spleen not palpable. LOWER EXTREMITIES: Some venous prominence and some redness of lower extremity. INVESTIGATIONS: White count 9.8, hemoglobin 11.3, potassium 3.4, BUN 29, creatinine 0.88, LDL 54. ProBNP was 570. Doppler ultrasound lower extremity negative for DVT. V/Q scan, low probability. ASSESSMENT: 1. Bilateral lower extremity cellulitis from chronic bilateral venous insufficiency. 2. Shortness of breath, probably from acute bronchitis, likely viral. 3. Pulmonary embolism very unlikely. 4. Coronary artery disease, prior history of coronary bypass, nil acute. 5. Essential hypertension. 6. Hyperlipidemia. 7. Obstructive sleep apnea. 8. Primary osteoarthritis. 9. Chronic gout. 10.Gastroesophageal reflux disease. 11.Lymphoma undergoing chemotherapy. 12.Chronic kidney disease from nephrosclerosis. 13.Morbid obesity, body mass index 41.8. 14.Normocytic anemia, probably from underlying lymphoma. PLAN: Continue current medication and treatment plan. Overall patient is feeling better. Continue with topical Silvadene, dressing, and antibiotic. Patient encouraged to ambulate. MMODL / IJN: [id number] /
--- NOTE | 2018-09-24 14:27 | HP ---
HISTORY AND PHYSICAL ADDENDUM: DATE OF ADMISSION SERVICES: 09/20/2018 PHYSICAL EXAMINATION: Temperature 98, pulse 65, respiratory 18, blood pressure 110/57, pulse ox 95% on room GENERAL APPEARANCE: Well built, BMI 43, lying in bed tired-appearing. EYES: Pupils equal, conjunctivae normal. NECK: JVD unable to assess. Mass not palpable. RESPIRATORY: Effort increased. LUNGS: Decreased breath sounds. CARDIOVASCULAR: First and second sounds are normal. Edema present. ABDOMEN: Distended, soft. Liver and spleen not palpable. LYMPHATIC: No lymph node palpable in neck or axillae. PSYCHIATRY: Alert and oriented x3. Mood and affect normal. NEUROLOGICAL: Pupils equal. Cranial nerves grossly intact. Power and sensation grossly intact. EXTREMITIES: Lower extremities, some edema is present. Some redness is present and evidence of varicose veins. MMODL / IJN: [id number] /
--- NOTE | 2018-09-24 18:32 | DS ---
DISCHARGE SUMMARY DATE OF ADMISSION: September 20, 2018 DATE OF DISCHARGE: September 22, 2018 FINAL DIAGNOSES: 1. Acute bilateral lower extremity cellulitis probably secondary to venous insufficiency and varicose veins. 2. Chest pain, probably from acute viral bronchitis. 3. Pulmonary embolism ruled out. 4. Coronary artery disease prior history of coronary bypass. 5. Troponin leak not felt to be acute coronary syndrome. 6. Essential hypertension. 7. Hyperlipidemia. 8. Obstructive sleep apnea. 9. Primary osteoarthritis. 10.Chronic gout. 11.Gastroesophageal reflux disease. 12.Lymphoma undergoing chemotherapy. 13.The patient does not have chronic kidney disease. 14.Acute renal failure prerenal corrected. 15.Morbid obesity BMI 41.8. 16.Normocytic anemia probably from underlying lymphoma. CONSULTATIONS: Dr. Ferreira from Pulmonary. Dr. Ferris from Cardiology, Dr. Lala from ID. HOSPITAL COURSE: This very pleasant gentleman presents with some shortness of breath. Possibility of PE was felt to be less likely. Doppler ultrasound of lower extremity was negative. V/Q scan was low probability. The patient's creatinine was bumped up when he came in to 1.34, did come down to 0.888. The patient has lower extremity cellulitis for which he did get antibiotics and Silvadene cream by Dr. Lala. The patient is feeling much better the day of discharge, up and about. Very keen to go home. PHYSICAL EXAMINATION: Temperature 98, pulse 75, respirations 17, blood pressure 110/65, pulse ox 95% on room air. Lungs slightly decreased breath sounds. Cardiovascular: First and second sounds normal. Lower extremities some redness, erythema. INVESTIGATIONS: White count 11, hemoglobin 11.9, potassium 3.3, BUN 26, creatinine 1.01. DISCHARGE MEDICATIONS: 1. Protonix 40 mg daily. 2. Metformin 500 mg mg b.i.d. 3. Lipitor 40 mg at bedtime. 4. Norvasc 5 mg p.o. daily. 5. Allopurinol 300 mg p.o. daily. 6. Lopressor 150 mg p.o. b.i.d. 7. Lasix 40 mg daily. 8. Aspirin 162 mg daily p.r.n. 9. Colchicine 0.6 mg p.o. daily p.r.n. 10.[place] 5 one tablet daily p.r.n. 11.Keflex 500 mg q.8, 21 capsules. 12.Zaroxolyn 5 mg p.o. daily. FOLLOWUP: Follow up with Dr. Lala on 10/08/2018. Follow up with Dr. Ferreira on October 06, 2018; follow Dr. Yoo on September 29, 2018. Follow up with Dr. Jasper Teran on 10/20/2018. Silvadene leg wraps to continue. The patient should have a BMP done by Dr. Yoo in about a week's time. Copy to Dr. Yoo. MMODL / IJN: [id number] /
== END 2018-09-22 16:40 | disposition home or self-care (01) | DRG 303 ==
LOC: EC 03:16 → 3SCARD 06:56
PROVIDERS: ADMIT Hospitalist; ATTEND Hospitalist
DX: I25.10 Atherosclerotic heart disease of native coronary artery without angina pectoris (principal); Z68.41 Body mass index [BMI] 40.0-44.9, adult; C85.10 Unspecified B-cell lymphoma, unspecified site; L03.115 Cellulitis of right lower limb; L03.116 Cellulitis of left lower limb; E66.01 Morbid (severe) obesity due to excess calories; D89.9 Disorder involving the immune mechanism, unspecified; E11.22 Type 2 diabetes mellitus with diabetic chronic kidney disease; N18.3 Chronic kidney disease, stage 3 (moderate); J44.9 Chronic obstructive pulmonary disease, unspecified; I27.20 Pulmonary hypertension, unspecified; D63.0 Anemia in neoplastic disease; I08.2 Rheumatic disorders of both aortic and tricuspid valves; I87.8 Other specified disorders of veins; G47.33 Obstructive sleep apnea (adult) (pediatric); I12.9 Hypertensive chronic kidney disease with stage 1 through stage 4 chronic kidney disease, or unspecified chronic kidney disease; I25.2 Old myocardial infarction; E78.5 Hyperlipidemia, unspecified; K21.9 Gastro-esophageal reflux disease without esophagitis; M19.91 Primary osteoarthritis, unspecified site; M1A.9XX0 Chronic gout, unspecified, without tophus (tophi); Z79.82 Long term (current) use of aspirin; Z79.84 Long term (current) use of oral hypoglycemic drugs; Z79.899 Other long term (current) drug therapy; Z95.1 Presence of aortocoronary bypass graft; Z85.828 Personal history of other malignant neoplasm of skin; Z86.14 Personal history of Methicillin resistant Staphylococcus aureus infection; Z90.49 Acquired absence of other specified parts of digestive tract; Z87.891 Personal history of nicotine dependence; Z92.21 Personal history of antineoplastic chemotherapy; Z96.651 Presence of right artificial knee joint; Z98.42 Cataract extraction status, left eye; Z98.41 Cataract extraction status, right eye; Z80.0 Family history of malignant neoplasm of digestive organs; Z82.49 Family history of ischemic heart disease and other diseases of the circulatory system; Z91.19 Patient's noncompliance with other medical treatment and regimen
CPT/HCPCS: 36415; 71046; 78582; 80048; 80053; 80061; 82550; 82553; 83735; 83880; 84484; 85025; 85027; 85379; 85610; 85730; 93005; 93306; 93970; 94760; 96365; 99285

== ENCOUNTER → 2018-09-25 | Outpatient (CLI) | payer MEDICARE ==
[2018-09-25 19:51] LABS: Anion Gap 13.7 mmol/L (4.00-12.00); Calcium 9.2 mg/dL (8.7-10.3); Carbon Dioxide 29.3 mmol/L (21.6-31.8); Magnesium 1.5 mg/dL (1.5-2.4); Potassium 3.5 mmol/L (3.5-5.5)
== END | disposition home or self-care (01) ==
LOC: LABWHC1 13:08
PROVIDERS: ATTEND Hospitalist
DX: I25.10 Atherosclerotic heart disease of native coronary artery without angina pectoris (principal); R06.02 Shortness of breath
CPT/HCPCS: 36415; 80048; 83735

== ENCOUNTER → 2018-12-05 | Outpatient (CLI) | payer MEDICARE ==
--- NOTE | 2018-12-08 10:30 | PE ---
Nuclear medicine PET/CT HISTORY: Diffuse large B-cell lymphoma, subsequent Patient received 8 mCi F-18 FDG intravenously in delayed scanning was performed from the skull base t o the mid thighs. Localization and attenuation correction CT scan was performed. Correlation to prior nuclear medicine PET/CT 04/25/2018 Exam somewhat limited by patient body habitus. Neck and chest: There is no mediastinal, cervical, axillary, or hilar adenopathy. No suspicious hyper metabolic uptake. Port-A-Cath is present in the left pectoral region via subclavian approach coursing into the superior vena cava. No evident lung mass. No pleural or pericardial effusion. There are cor onary artery calcifications. Patient is post median sternotomy. ABDOMEN: No evident liver mass. Patient is post cholecystectomy. No retroperitoneal adenopathy. There is mild hypermetabolic uptake noted within the patient's abdominal mass, SUV 3.7-4, portions of the mass do not show hypermetabolic uptake. Mass shows a similar appearance to prior exam. There may be s ome slight interval reduction in size. The exam is not optimal due to patient's body habitus. No candace tional hypermetabolic uptake. Osseous structures are stable. IMPRESSION: Exam is again limited. Mild hypermetabolic uptake associated with patient's abdominal mas s.
== END | disposition home or self-care (01) ==
LOC: RADPETMAIN 09:53
PROVIDERS: ATTEND Internal Medicine Hematology & Oncology
DX: C83.33 Diffuse large B-cell lymphoma, intra-abdominal lymph nodes (principal); Z92.21 Personal history of antineoplastic chemotherapy
CPT/HCPCS: 78815; A9552

== ENCOUNTER 2019-07-10 07:38 | Observation (INO) | payer MEDICARE ==
[2019-07-10] MEDS ORDERED: HYDROmorphone 1 MG/ML 1 ML SYRINGE IVP STA (07:57)
[2019-07-10] MEDS ORDERED: ASPIRIN 81 MG PO STA (07:57)
--- NOTE | 2019-07-10 07:57 | ED ---
General Adult HPI - General Chief complaint: Shortness of Breath Stated complaint: SOB Time Seen by Provider: 07/10/19 07:45 Source: patient, RN notes reviewed, old records reviewed Mode of arrival: wheelchair Limitations: no limitations - History of Present Illness Initial comments: This is a 79-year-old male who presents emergency department stating that he has chronic back pain. Patient states all night long his back pain was bothering him since taking some [place] was. Patient then started having shortness of breath and he decided come the emergency department. Patient states last time he had shortness of breath a few years ago he did have bypass surgery. Patient states this episode of shortness of breath reminded him of his previous visit just prior to his bypass surgery. Patient states she had a quadruple bypass. Patient states he never had chest pain at that time and he has no chest pain today. Patient denies any palpitations. Patient denies any recent fever chills or cough. Patient denies any abdominal pain patient denies any nausea vomiting diarrhea. Patient states he does have back pain but it's the same pain he always has and there is no difference. Patient denies any increased swelling in legs he states he always has some swelling. - Related Data Home Medications Medication Instructions Recorded Confirmed Pantoprazole [Protonix] 40 mg PO DAILY 06/19/16 09/20/18 metFORMIN HCL [Glucophage] 500 mg PO BID 06/19/16 09/20/18 Atorvastatin [Lipitor] 40 mg PO HS 07/21/16 09/20/18 amLODIPine [Norvasc] 5 mg PO DAILY 07/21/16 09/20/18 Allopurinol [Zyloprim] 300 mg PO DAILY 07/22/16 09/20/18 Metoprolol Tartrate [Lopressor] 150 mg PO BID 10/25/16 09/20/18 Furosemide [Lasix] 40 mg PO DAILY 01/11/17 09/20/18 Aspirin EC [Ecotrin Low Dose] 162 mg PO DAILY PRN 09/20/18 09/20/18 Colchicine 0.6 mg PO DAILY PRN 09/20/18 09/20/18 HYDROcodone/APAP 5-325MG [[place] 1 tab PO DAILY PRN 09/20/18 09/20/18 5-325] Metolazone [Zaroxolyn] 5 mg PO DAILY 09/22/18 09/22/18 Previous Rx's Medication Instructions Recorded Cephalexin [Keflex] 500 mg PO Q8HR #21 cap 09/22/18 Allergies Allergy/AdvReac Type Severity Reaction Status Date / Time No Known Allergies Allergy Verified 07/10/19 07:43 Review of Systems ROS Statement: Those systems with pertinent positive or pertinent negative responses have been documented in the HPI. ROS Other: All systems not noted in ROS Statement are negative. Past Medical History Past Medical History: Coronary Artery Disease (CAD), Cancer, GERD/Reflux, Hyperlipidemia, Hypertension, Myocardial Infarction ([place]), Musculoskeletal Disorder, Osteoarthritis (OA), Sleep Apnea/CPAP/BIPAP Additional Past Medical History / Comment(s): SKIN CANCER , GOUT CHRONIC BACK,SKIN LESIONS , chemo 09/18/2018 Last Myocardial Infarction Date:: MAY 2016 History of Any Multi-Drug Resistant Organisms: MRSA Date of last positivie culture/infection: 07/22/16 MDRO Source:: LOWER LEGS Past Surgical History: Cholecystectomy, Coronary Bypass/CABG, Heart Catheterization Additional Past Surgical History / Comment(s): PICC line insertion/removed, bilateral caract removals, COLONOSCOPY, EGD, CANCEROUS SKIN LESIONS REMOVED, TOTAL RIGHT KNEE REPLACEMENT, 06-04-16 QUAD BYPASS Past Anesthesia/Blood Transfusion Reactions: Previous Problems w/ Anesthesia Additional Past Anesthesia/Blood Transfusion Reaction / Comment(s): HAD A HARD TIME COMING OUT OF ANESTHESIA AFTER CHOLECYSTECTOMY Past Psychological History: No Psychological Hx Reported Smoking Status: Former smoker Past Alcohol Use History: None Reported Past Drug Use History: None Reported - Past Family History Father Family Medical History: Vascular Disorder Additional Family Medical History / Comment(s): POOR CIRCULATION-HAD AMPUTATIONS D/T POOR CIRCULATION Mother Family Medical History: Cancer Additional Family Medical History / Comment(s): STOMACH CANCER General Exam - General Exam Comments Initial Comments: GENERAL: Patient is well-developed and well-nourished. Patient is nontoxic and well- hydrated and is in no acute distress. ENT: Neck is soft and supple. No significant lymphadenopathy is noted. Oropharynx is clear. Moist mucous membranes. Neck has full range of motion without eliciting any pain. EYES: The sclera were anicteric and conjunctiva were pink and moist. Extraocular movements were intact and pupils were equal round and reactive to light. Eyelids were unremarkable. PULMONARY: Unlabored respirations. Good breath sounds bilaterally. No audible rales rhonchi or wheezing was noted. CARDIOVASCULAR: There is a regular rate and rhythm without any murmurs gallops or rubs. ABDOMEN: Soft and nontender with normal bowel sounds. No palpable organomegaly was noted. There is no palpable pulsatile mass. SKIN: Skin is clear with no lesions or rashes and otherwise unremarkable. NEUROLOGIC: Patient is alert and oriented x3. Cranial nerves II through XII are grossly intact. Motor and sensory are also intact. Normal speech, volume and content. Symmetrical smile. MUSCULOSKELETAL: Normal extremities with adequate strength and full range of motion. 1+ bilaterally LYMPHATICS: No significant lymphadenopathy is noted PSYCHIATRIC: Normal psychiatric evaluation. Limitations: no limitations Course Vital Signs 07/10/19 07/10/19 07/10/19 07:41 07:42 09:15 Temperature 97.8 F Pulse Rate 75 81 Respiratory 18 18 16 Rate Blood Pressure 181/76 151/76 O2 Sat by Pulse 98 96 Oximetry 07/10/19 10:44 Temperature Pulse Rate 66 Respiratory 16 Rate Blood Pressure 142/62 O2 Sat by Pulse 98 Oximetry Medical Decision Making - Medical Decision Making EKG shows a sinus rhythm with an occasional PVC at 77 bpm HI interval is 154 QRS is 96 QT interval 398 QTC is 450. Patient's EKG shows no ST segment elevation or depression. Chest x-ray shows no acute abnormality. I spoke with Dr. St she agreed to admit the patient and the patient and I wrote admitting orders. I consult cardiology. She is not short of breath upon admission. - Lab Data Result diagrams: 07/10/19 09:01 07/10/19 09:01 Lab Results 07/10/19 07/10/19 07/10/19 Range/Units 09:01 09:01 09:01 WBC 12.1 H (3.8-10.6) k/uL RBC 3.95 L (4.30-5.90) m/uL Hgb 13.2 (13.0-17.5) gm/dL Hct 38.3 L (39.0-53.0) % MCV 96.9 (80.0-100.0) fL MCH 33.3 (25.0-35.0) pg MCHC 34.3 (31.0-37.0) g/dL RDW 15.2 (11.5-15.5) % Plt Count 338 (150-450) k/uL Neutrophils % 77 % Lymphocytes % 11 % Monocytes % 6 % Eosinophils % 3 % Basophils % 2 % Neutrophils # 9.3 H (1.3-7.7) k/uL Lymphocytes # 1.4 (1.0-4.8) k/uL Monocytes # 0.7 (0-1.0) k/uL Eosinophils # 0.4 (0-0.7) k/uL Basophils # 0.3 H (0-0.2) k/uL Hyperchromasia Slight Poikilocytosis Slight PT (9.0-12.0) sec INR (<1.2) APTT (22.0-30.0) sec Sodium 139 (137-145) mmol/L Potassium 3.1 L (3.5-5.1) mmol/L Chloride 94 L (98-107) mmol/L Carbon Dioxide 30 (22-30) mmol/L Anion Gap 15 mmol/L BUN 29 H (9-20) mg/dL Creatinine 1.30 H (0.66-1.25) mg/dL Est GFR (CKD-EPI)AfAm 61 (>60 ml/min/1.73 sqM) Est GFR (CKD-EPI)NonAf 53 (>60 ml/min/1.73 sqM) Glucose 172 H (74-99) mg/dL Calcium 9.4 (8.4-10.2) mg/dL Magnesium 1.4 L (1.6-2.3) mg/dL Total Bilirubin 0.8 (0.2-1.3) mg/dL AST 41 (17-59) U/L ALT 23 (4-49) U/L Alkaline Phosphatase 98 (38-126) U/L Troponin I (0.000-0.034) ng/mL NT-Pro-B Natriuret Pep 721 pg/mL Total Protein 6.9 (6.3-8.2) g/dL Albumin 4.5 (3.5-5.0) g/dL 07/10/19 07/10/19 Range/Units 09:01 09:01 WBC (3.8-10.6) k/uL RBC (4.30-5.90) m/uL Hgb (13.0-17.5) gm/dL Hct (39.0-53.0) % MCV (80.0-100.0) fL MCH (25.0-35.0) pg MCHC (31.0-37.0) g/dL RDW (11.5-15.5) % Plt Count (150-450) k/uL Neutrophils % % Lymphocytes % % Monocytes % % Eosinophils % % Basophils % % Neutrophils # (1.3-7.7) k/uL Lymphocytes # (1.0-4.8) k/uL Monocytes # (0-1.0) k/uL Eosinophils # (0-0.7) k/uL Basophils # (0-0.2) k/uL Hyperchromasia Poikilocytosis PT 9.9 (9.0-12.0) sec INR 0.9 (<1.2) APTT 22.2 (22.0-30.0) sec Sodium (137-145) mmol/L Potassium (3.5-5.1) mmol/L Chloride (98-107) mmol/L Carbon Dioxide (22-30) mmol/L Anion Gap mmol/L BUN (9-20) mg/dL Creatinine (0.66-1.25) mg/dL Est GFR (CKD-EPI)AfAm (>60 ml/min/1.73 sqM) Est GFR (CKD-EPI)NonAf (>60 ml/min/1.73 sqM) Glucose (74-99) mg/dL Calcium (8.4-10.2) mg/dL Magnesium (1.6-2.3) mg/dL Total Bilirubin (0.2-1.3) mg/dL AST (17-59) U/L ALT (4-49) U/L Alkaline Phosphatase (38-126) U/L Troponin I <0.012 (0.000-0.034) ng/mL NT-Pro-B Natriuret Pep pg/mL Total Protein (6.3-8.2) g/dL Albumin (3.5-5.0) g/dL Disposition Clinical Impression: Anginal equivalent, Chronic back pain Disposition: ADMITTED IP TO THIS [facility] Referrals: Martinez Yoo MD [Primary Care Provider] - 1-2 days Time of Disposition: 11:50
[2019-07-10 09:19] LABS: Basophils # (A) 0.3 k/uL (0-0.2); Basophils % (A) 2 %; Eosinophils # (A) 0.4 k/uL (0-0.7); Eosinophils % (A) 3 %; HCT 38.3 % (39.0-53.0); HGB 13.2 gm/dL (13.0-17.5); Hyperchromasia Slight; Lymphocytes # (A) 1.4 k/uL (1.0-4.8); Lymphocytes % (A) 11 %; MCH 33.3 pg (25.0-35.0); MCHC 34.3 g/dL (31.0-37.0); MCV 96.9 fL (80.0-100.0); Mean Platelet Volume 8.3; Monocytes # (A) 0.7 k/uL (0-1.0); Monocytes % (A) 6 %; Neutrophils # (A) 9.3 k/uL (1.3-7.7); Neutrophils % (A) 77 %; Platelet Count 338 k/uL (150-450); Poikilocytosis Slight; RBC 3.95 m/uL (4.30-5.90); RDW 15.2 % (11.5-15.5); WBC 12.1 k/uL (3.8-10.6)
[2019-07-10 09:26] LABS: INR 0.9 (<1.2); Partial Thromboplastin Time 22.2 sec (22.0-30.0); Prothrombin Time 9.9 sec (9.0-12.0)
[2019-07-10 09:32] LABS: Albumin 4.5 g/dL (3.5-5.0); Calcium 9.4 mg/dL (8.4-10.2); Magnesium 1.4 mg/dL (1.6-2.3); Potassium 3.1 mmol/L (3.5-5.1); Total Bilirubin 0.8 mg/dL (0.2-1.3); Total Protein 6.9 g/dL (6.3-8.2)
--- NOTE | 2019-07-10 09:38 | XR ---
EXAMINATION TYPE: XR chest 2V DATE OF EXAM: 07/10/2019 COMPARISON: Chest x-ray September 20, 2018. PET/CT December 05, 2018. HISTORY: History of lymphoma with difficulty in breathing. TECHNIQUE: Frontal and lateral views of the chest are obtained. FINDINGS: Redemonstration of elevated left hemidiaphragm. Stable left subclavian Mediport catheter. O verlying sternal wires and mediastinal clips. Persistent patchy bibasilar linear scarring and/or atel ectasis. There is no new suspicious focal air space opacity, pleural effusion, or pneumothorax seen. The cardiac silhouette size is stable and upper limits of normal. Multilevel spurring in thoracic sp ine. IMPRESSION: Chronic changes without new acute pulmonary process.
[2019-07-10] MEDS ORDERED: POTASSIUM CHLORIDE ER 20 MEQ TAB.ER PO STA (10:06)
[2019-07-10] MEDS ORDERED: NITROGLYCERIN SL TABS 0.4 MG TAB SUBLINGUAL PRN (11:53)
[2019-07-10] MEDS: NITROGLYCERIN OINT 1 INCH/GM PACKET TOPICAL SCH ×3 (13:34→23:54)
[2019-07-10] MEDS ORDERED: NALOXONE 0.4 MG/ML 1 ML VIAL IV PRN (14:15)
[2019-07-10] MEDS ORDERED: ASPIRIN 81 MG PO PRN (14:17)
--- NOTE | 2019-07-10 14:24 | P.HPIM ---
History of Present Illness H&P Date: 07/10/19 Chief Complaint: sob 79-year-old male who presents emergency department because of an episode of shortness of breath this morning. He has severe chronic back pain at baseline and did not sleep last night because of it.. He denied chest pain. No dizziness, diaphoresis. No vomiting. Patient states that he had shortness of breath back in 2016 when he had quadruple bypass, at that time he did not have chest pain. No palpitation, recent fever chills or cough. In the emergency department he was evaluated, troponin was negative, EKG and chest x-ray were both unremarkable. He was admitted for further cardiac evaluation. Review of Systems Complete review of system performed, pertinent positives per HPI, otherwise negative Past Medical History Past Medical History: Coronary Artery Disease (CAD), Cancer, GERD/Reflux, Hyperlipidemia, Hypertension, Myocardial Infarction ([place]), Musculoskeletal Disor patricia, Osteoarthritis (OA), Sleep Apnea/CPAP/BIPAP Additional Past Medical History / Comment(s): SKIN CANCER , GOUT CHRONIC BACK,SKIN LESIONS , chemo 09/18/2018 Last Myocardial Infarction Date:: MAY 2016 History of Any Multi-Drug Resistant Organisms: MRSA Date of last positivie culture/infection: 07/22/16 MDRO Source:: LOWER LEGS Past Surgical History: Cholecystectomy, Coronary Bypass/CABG, Heart Catheterization Additional Past Surgical History / Comment(s): PICC line insertion/removed, bilateral caract removals, COLONOSCOPY, EGD, CANCEROUS SKIN LESIONS REMOVED, TOTAL RIGHT KNEE REPLACEMENT, 06-04-16 QUAD BYPASS Past Anesthesia/Blood Transfusion Reactions: Previous Problems w/ Anesthesia Additional Past Anesthesia/Blood Transfusion Reaction / Comment(s): HAD A HARD T EDD COMING OUT OF ANESTHESIA AFTER CHOLECYSTECTOMY Past Psychological History: No Psychological Hx Reported Smoking Status: Former smoker Past Alcohol Use History: None Reported Past Drug Use History: None Reported - Past Family History Father Family Medical History: Vascular Disorder Additional Family Medical History / Comment(s): POOR CIRCULATION-HAD AMPUTATIONS D/T POOR CIRCULATION Mother Family Medical History: Cancer Additional Family Medical History / Comment(s): STOMACH CANCER Medications and Allergies Home Medications Medication Instructions Recorded Confirmed Type Pantoprazole [Protonix] 40 mg PO DAILY 06/19/16 07/10/19 History Atorvastatin [Lipitor] 40 mg PO HS 07/21/16 07/10/19 History amLODIPine [Norvasc] 5 mg PO DAILY 07/21/16 07/10/19 History Allopurinol [Zyloprim] 300 mg PO DAILY 07/22/16 07/10/19 History Metoprolol Tartrate [Lopressor] 150 mg PO BID 10/25/16 07/10/19 History Furosemide [Lasix] 40 mg PO DAILY 01/11/17 07/10/19 History Aspirin EC [Ecotrin Low Dose] 162 mg PO DAILY PRN 09/20/18 07/10/19 History Metolazone [Zaroxolyn] 5 mg PO DAILY 09/22/18 07/10/19 History B Complex-Vit C-Vit E-Zinc [Z-Bec] 1 tab PO DAILY 07/10/19 07/10/19 History Cholecalciferol [Vitamin D3 (25 1,000 unit PO DAILY 07/10/19 07/10/19 History Mcg = 1000 Iu)] Potassium Chloride ER [K-Dur 10] 10 meq PO DAILY 07/10/19 07/10/19 History traMADol HCL 50 mg PO DAILY PRN 07/10/19 07/10/19 History Allergies Allergy/AdvReac Type Severity Reaction Status Date / Time No Known Allergies Allergy Verified 07/10/19 07:43 Physical Exam Vitals: Vital Signs Temp Pulse Resp BP Pulse Ox 07/10/19 10:44 66 16 142/62 98 07/10/19 09:15 81 16 151/76 96 07/10/19 07:42 18 07/10/19 07:41 97.8 F 75 18 181/76 98 Intake and Output 07/09/19 07/10/19 07/10/19 22:59 06:59 14:59 Other: Weight 142.882 kg Constitutional: No acute distress, conversant, pleasant Eyes:Anicteric sclerae, moist conjunctiva, no lid-lag, PERRLA, ENMT: Oropharynx clear, no erythema, exudates Neck: Supple, FROM, no masses, or JVD, No carotid bruits, No thyromegaly Lungs: Clear to auscultation, Clear to percussion, Normal respiratory effort, no accessory muscle use Cardiovascular: Heart regular in rate and rhythm, No murmurs, gallops, or rubs, 1+ peripheral edema Abdominal: Soft, Nontender, no guarding, rebound or rigidity, Normoactive bowel sounds, No hepatomegaly, No splenomegaly, No palpable mass Skin: Normal temperature, tone, texture, turgor, no induration, No subcutaneous nodules, No rash, lesions, No ulcers Extremities: No digital cyanosis, No clubbing, Pedal pulses intact and symmetrical, Radial pulses intact and symmetrical, No calf tenderness Psychiatric: Alert and oriented to person, place and time, appropriate affect, intact judgement Neuro: Muscles Strength 5/5 in all 4 extremities, Sensation to light touch grossly present throughout, Cranial nerves II-XII grossly intact, no focal sensory deficits Results CBC & Chem 7: 07/10/19 09:01 07/10/19 09:01 Labs: Abnormal Lab Results - Last 24 Hours (Table) 07/10/19 07/10/19 Range/Units 09:01 09:01 WBC 12.1 H (3.8-10.6) k/uL RBC 3.95 L (4.30-5.90) m/uL Hct 38.3 L (39.0-53.0) % Neutrophils # 9.3 H (1.3-7.7) k/uL Basophils # 0.3 H (0-0.2) k/uL Potassium 3.1 L (3.5-5.1) mmol/L Chloride 94 L (98-107) mmol/L BUN 29 H (9-20) mg/dL Creatinine 1.30 H (0.66-1.25) mg/dL Glucose 172 H (74-99) mg/dL Magnesium 1.4 L (1.6-2.3) mg/dL Assessment and Plan Plan: Shortness of breath With hx of CAD Admit to observation Cycle troponins Telemetry Rule out angina equivalent Consult cardiology Chronic GERD/Reflux, Hyperlipidemia, Hypertension All stable Resume meds Anticipated length of stay less than to midnight Anticipated disposition: home
[2019-07-10] MEDS: traMADol 50 MG TAB PO PRN (15:42)
[2019-07-10] MEDS: HYDROcodone/APAP 7.5-325MG 1 EACH TAB PO PRN ×2 (16:44→22:27)
[2019-07-10] MEDS: METOLAZONE 5 MG TAB PO SCH (17:42)
[2019-07-10] MEDS: METOPROLOL TARTRATE 50 MG TAB PO SCH (19:33)
[2019-07-10] MEDS: ATORVASTATIN 40 MG TAB PO SCH (19:34)
[2019-07-11] MEDS: NITROGLYCERIN OINT 1 INCH/GM PACKET TOPICAL SCH ×3 (03:29→18:30)
[2019-07-11] MEDS: HYDROcodone/APAP 7.5-325MG 1 EACH TAB PO PRN ×4 (04:26→23:54)
[2019-07-11 06:21] LABS: Calcium 9.2 mg/dL (8.4-10.2); Magnesium 1.4 mg/dL (1.6-2.3)
[2019-07-11 06:37] LABS: Basophils # (A) 0.1 k/uL (0-0.2); Basophils % (A) 1 %; Eosinophils # (A) 0.3 k/uL (0-0.7); Eosinophils % (A) 3 %; HCT 35.1 % (39.0-53.0); HGB 12.1 gm/dL (13.0-17.5); Lymphocytes # (A) 1.5 k/uL (1.0-4.8); Lymphocytes % (A) 14 %; MCH 33.9 pg (25.0-35.0); MCHC 34.6 g/dL (31.0-37.0); MCV 98.1 fL (80.0-100.0); Macrocytosis Slight; Mean Platelet Volume 7.8; Monocytes # (A) 0.6 k/uL (0-1.0); Monocytes % (A) 5 %; Neutrophils % (A) 76 %; Platelet Count 298 k/uL (150-450); Poikilocytosis Slight; RBC 3.58 m/uL (4.30-5.90); RDW 15.5 % (11.5-15.5); WBC 10.6 k/uL (3.8-10.6)
[2019-07-11] MEDS ORDERED: POTASSIUM CHLORIDE ER 20 MEQ TAB.ER PO STA (07:32)
[2019-07-11] MEDS: MAGNESIUM SULFATE-D5W PMX 1 GM in DEXTROSE/WATER 1 100ML.BAG IVPB SCH ×2 (08:46→10:24)
[2019-07-11] MEDS: POTASSIUM CHLORIDE ER 10 MEQ TAB.ER.PRT PO SCH (08:54)
[2019-07-11] MEDS ORDERED: ASPIRIN 325 MG TAB PO SCH (09:00)
[2019-07-11] MEDS ORDERED: METOLAZONE 5 MG TAB PO SCH (09:00)
[2019-07-11] MEDS: ALLOPURINOL 300 MG TAB PO SCH (09:09)
[2019-07-11] MEDS: FUROSEMIDE 40 MG TAB PO SCH (09:09)
[2019-07-11] MEDS: amLODIPine 5 MG TAB PO SCH (09:09)
[2019-07-11] MEDS: METOLAZONE 5 MG TAB PO SCH (09:10)
[2019-07-11] MEDS: PANTOPRAZOLE 40 MG TABLET PO SCH (09:10)
[2019-07-11] MEDS: METOPROLOL TARTRATE 50 MG TAB PO SCH ×2 (09:10→19:43)
--- NOTE | 2019-07-11 10:33 | P.CRDCN ---
History of Present Illness History of present illness: This is Rosa Villatoro PA-C dictating a consult on this patient The patient was interviewed and examined by me as well as by Dr. Dutton Case discussed with Dr. Dutton and he agrees with the plan of care IMPRESSION / ASSESSMENT: sudden-onset shortness of breath, troponins normal 3, EKG showing no acute ST or T-wave abnormalities, symptoms have resolved History of CAD status post CABG History of [place] Hypertension Dyslipidemia Former smoker Chronic back pain Hypokalemia, hypomagnesemia PLAN: Check d-dimer recommend stress test Continue aspirin, statin, metoprolol and antihypertensive medications Management of electrolyte abnormalities per primary care team HPI Patient is a 79-year-old male with a past medical history significant for CAD status post CABG 4, AL, hypertension, dyslipidemia, former smoker, chronic back pain who presented with complaints of shortness of breath. He follows with Dr. Teran in the office. Patient was sitting at home on his couch when he exp erienced a sudden onset of shortness of breath. He denied any associated chest pain, chest pressure, nausea, diaphoresis, palpitations or dizziness. He does have chronic back pain which has been more severe lately. States the shortness of breath was nonexertional although he his activity is limited secondary to his severe back pain. The shortness of breath reminded him of the shortness of breath that brought him into the hospital before his CABG so he came into the emergency department for further evaluation. Upon presentation to the emergency department his blood pressure was 181/76, pulse was 75. Chest x-ray showed chronic changes without any acute process. EKG showed sinus rhythm with occasional PVCs, no acute ST segment abnormalities. Labs were significant for hypokalemia, BUN was 29, creatinine was 1.3. Troponin 0.0-1, 0.0-2, less than 0.012. BNP 721. Patient seen and examined sitting up in the chair. He states that shortness of breath resolved spontaneously while on his way to the hospital and he has not had any since. Denies any chest pain, chest pressure, dizziness, palpitations, syncope. He sleeps in a chair secondary to his back pain but states he would be able to breathe comfortably lying flat. He is not able to lie flat only because of his back pain. Denies orthopnea or PND. ROS: No fevers, chills or rigors, no cough, phlegm or expectoration, no nausea, vomiting or diarrhea, no hematuria, dysuria, Positive for back pain no strokes or seizures, no skin lesions. EXAMINATION: Temperature 98.0F, pulse 73, respirations 18, blood pressure 122/72, oxygen saturation 94% on room air Patient seen and examined sitting up in the chair, in no acute distress Lungs clear to auscultation bilaterally, no wheezing rhonchi or crackles appreciated Heart is regular, no audible murmurs No elevated JVD Trace lower extremity edema bilaterally Abdomen soft and nontender to palpation REVIEW OF LABS, ECG & MEDICAL DATA WBC 10.6, hemoglobin 12.2, platelets 298, potassium 3.0, BUN 33, creatinine 0.28, magnesium 1.4, LDL 85 Troponin 0.0-1, 0.0-2, less than 0.012. Echocardiogram in September showed EF 55-60%, moderate concentric hypertrophy Past Medical History Past Medical History: Coronary Artery Disease (CAD), Cancer, GERD/Reflux, Hyperlipidemia, Hypertension, Myocardial Infarction ([place]), Musculoskeletal Disorder, Osteoarthritis (OA), Sleep Apnea/CPAP/BIPAP Additional Past Medical History / Comment(s): SKIN CANCER , GOUT CHRONIC BACK,SKIN LESIONS , chemo 09/18/2018 Last Myocardial Infarction Date:: MAY 2016 History of Any Multi-Drug Resistant Organisms: MRSA Date of last positivie culture/infection: 07/22/16 MDRO Source:: LOWER LEGS Past Surgical History: Cholecystectomy, Coronary Bypass/CABG, Heart Catheterization Additional Past Surgical History / Comment(s): PICC line insertion/removed, bilateral caract removals, COLONOSCOPY, EGD, CANCEROUS SKIN LESIONS REMOVED, TOTAL RIGHT KNEE REPLACEMENT, 06-04-16 QUAD BYPASS Past Anesthesia/Blood Transfusion Reactions: Previous Problems w/ Anesthesia Additional Past Anesthesia/Blood Transfusion Reaction / Comment(s): HAD A HARD TIME COMING OUT OF ANESTHESIA AFTER CHOLECYSTECTOMY Past Psychological History: No Psychological Hx Reported Smoking Status: Former smoker Past Alcohol Use History: None Reported Past Drug Use History: None Reported - Past Family History Father Family Medical History: Vascular Disorder Additional Family Medical History / Comment(s): POOR CIRCULATION-HAD AMPUTATIONS D/T POOR CIRCULATION Mother Family Medical History: Cancer Additional Family Medical History / Comment(s): STOMACH CANCER Medications and Allergies Home Medications Medication Instructions Recorded Confirmed Type Pantoprazole [Protonix] 40 mg PO DAILY 06/19/16 07/10/19 History Atorvastatin [Lipitor] 40 mg PO HS 07/21/16 07/10/19 History amLODIPine [Norvasc] 5 mg PO DAILY 07/21/16 07/10/19 History Allopurinol [Zyloprim] 300 mg PO DAILY 07/22/16 07/10/19 History Metoprolol Tartrate [Lopressor] 150 mg PO BID 10/25/16 07/10/19 History Furosemide [Lasix] 40 mg PO DAILY 01/11/17 07/10/19 History Aspirin EC [Ecotrin Low Dose] 162 mg PO DAILY PRN 09/20/18 07/10/19 History Metolazone [Zaroxolyn] 5 mg PO DAILY 09/22/18 07/10/19 History B Complex-Vit C-Vit E-Zinc [Z-Bec] 1 tab PO DAILY 07/10/19 07/10/19 History Cholecalciferol [Vitamin D3 (25 1,000 unit PO DAILY 07/10/19 07/10/19 History Mcg = 1000 Iu)] HYDROcodone/APAP 7.5-325MG [[place] 1 tab PO Q8H PRN 07/10/19 07/10/19 History 7.5-325] Potassium Chloride ER [K-Dur 10] 10 meq PO DAILY 07/10/19 07/10/19 History traMADol HCL 50 mg PO DAILY PRN 07/10/19 07/10/19 History Allergies Allergy/AdvReac Type Severity Reaction Status Date / Time No Known Allergies Allergy Verified 07/10/19 07:43 Physical Exam Vitals: Vital Signs Temp Pulse Pulse Resp BP BP BP 07/11/19 08:00 73 18 07/11/19 07:00 98.0 F 73 18 122/72 07/11/19 04:00 97.8 F 82 18 182/75 07/11/19 03:21 18 07/11/19 00:00 18 07/10/19 23:53 97.8 F 60 18 130/71 07/10/19 20:00 18 07/10/19 19:15 98.1 F 79 18 139/70 07/10/19 16:00 78 18 07/10/19 13:48 97.6 F 78 18 130/77 07/10/19 13:35 76 20 131/65 07/10/19 10:44 66 16 142/62 Pulse Ox 07/11/19 08:00 07/11/19 07:00 94 L 07/11/19 04:00 95 07/11/19 03:21 07/11/19 00:00 07/10/19 23:53 95 07/10/19 20:00 07/10/19 19:15 94 L 07/10/19 16:00 07/10/19 13:48 94 L 07/10/19 13:35 96 07/10/19 10:44 98 Intake and Output 07/10/19 07/11/19 07/11/19 22:59 06:59 14:59 Other: Voiding Method Toilet Toilet Toilet # Voids 1 1 Results 07/11/19 05:51 07/11/19 05:51 Cardiac Enzymes 07/10/19 07/10/19 Range/Units 15:16 21:03 Troponin I 0.022 0.021 (0.000-0.034) ng/mL Lipids 07/11/19 Range/Units 05:51 Triglycerides 221 H (<150) mg/dL Cholesterol 167 (<200) mg/dL HDL Cholesterol 38 L (40-60) mg/dL CBC 07/11/19 Range/Units 05:51 WBC 10.6 (3.8-10.6) k/uL RBC 3.58 L (4.30-5.90) m/uL Hgb 12.1 L (13.0-17.5) gm/dL Hct 35.1 L (39.0-53.0) % Plt Count 298 (150-450) k/uL Comprehensive Metabolic Panel 07/11/19 Range/Units 05:51 Sodium 137 (137-145) mmol/L Potassium 3.0 L (3.5-5.1) mmol/L Chloride 95 L (98-107) mmol/L Carbon Dioxide 30 (22-30) mmol/L BUN 33 H (9-20) mg/dL Creatinine 1.28 H (0.66-1.25) mg/dL Glucose 166 H (74-99) mg/dL Calcium 9.2 (8.4-10.2) mg/dL Current Medications Generic Name Dose Route Start Last Admin Trade Name Freq PRN Reason Stop Dose Admin Hydrocodone Bitart/Acetaminophen 1 each 07/10/19 16:34 07/11/19 04:26 [place] 7.5-325 PO 1 each Q6H PRN Administration SEVERE Pain Allopurinol 300 mg 07/11/19 09:00 07/11/19 09:09 Zyloprim PO 300 mg DAILY JONY Administration Amlodipine Besylate 5 mg 07/11/19 09:00 07/11/19 09:09 Norvasc PO 5 mg DAILY JONY Administration Aspirin 325 mg 07/11/19 09:00 07/11/19 09:09 Aspirin PO 325 mg DAILY JONY Administration Aspirin 162 mg 07/10/19 14:17 Aspirin PO DAILY PRN Pain Atorvastatin Calcium 40 mg 07/10/19 21:00 07/10/19 19:34 Lipitor PO 40 mg HS JONY Administration Furosemide 40 mg 07/11/19 09:00 07/11/19 09:09 Lasix PO 40 mg DAILY [facility] Administration Metolazone 5 mg 07/10/19 16:45 07/11/19 09:10 Zaroxolyn PO 5 mg DAILY [facility] Administration Metoprolol Tartrate 150 mg 07/10/19 21:00 07/11/19 09:10 Lopressor PO 150 mg BID [facility] Administration Naloxone HCl 0.2 mg 07/10/19 14:15 Narcan IV Q2M PRN Opioid Reversal Nitroglycerin 0.4 mg 07/10/19 11:53 Nitrostat SUBLINGUAL Q5M PRN Chest Pain Nitroglycerin 1 inch 07/10/19 12:00 07/11/19 03:29 Nitro-Bid Oint TOPICAL Not Given Q6HR [facility] Pantoprazole Sodium 40 mg 07/11/19 07:30 07/11/19 09:10 Protonix PO 40 mg [id number] [facility] Administration Potassium Chloride 10 meq 07/11/19 09:00 07/11/19 08:54 K-Dur 10 PO 10 meq DAILY [facility] Administration Tramadol HCl 50 mg 07/10/19 14:17 07/10/19 15:42 Ultram PO 50 mg DAILY PRN Administration MODERATE Pain Intake and Output 07/10/19 07/11/19 07/11/19 22:59 06:59 14:59 Other: Voiding Method Toilet Toilet Toilet # Voids 1 1 07/11/19 05:51 07/11/19 05:51
--- NOTE | 2019-07-11 12:34 | P.PN ---
Subjective Progress Note Date: 07/11/19 Principal diagnosis: Shortness of breath No further episodes of shortness of breath since he came in. No chest pain. No dizziness. No palpitations. Has been constipated and was asking for laxative today. Objective - Vital Signs Vital signs: Vital Signs Temp 97.8 F 07/11/19 11:08 Pulse 72 07/11/19 11:08 Resp 18 07/11/19 11:08 BP 126/74 07/11/19 11:08 Pulse Ox 96 07/11/19 11:08 Intake & Output 07/10/19 07/11/19 07/11/19 18:59 06:59 18:59 Intake Total 200 Balance 200 Weight 142.882 kg Intake: Other 200 Other: Voiding Method Toilet Toilet Toilet # Voids 1 - Exam Constitutional: No acute distress, conversant, pleasant Eyes:Anicteric sclerae, moist conjunctiva, no lid-lag, PERRLA, ENMT: Oropharynx clear, no erythema, exudates Neck: Supple, FROM, no masses, or JVD, No carotid bruits, No thyromegaly Lungs: Clear to auscultation, Clear to percussion, Normal respiratory effort, no accessory muscle use Cardiovascular: Heart regular in rate and rhythm, No murmurs, gallops, or rubs, 1+ peripheral edema Abdominal: Soft, Nontender, no guarding, rebound or rigidity, Normoactive bowel sounds, No hepatomegaly, No splenomegaly, No palpable mass Skin: Normal temperature, tone, texture, turgor, no induration, No subcutaneous nodules, No rash, lesions, No ulcers Extremities: No digital cyanosis, No clubbing, Pedal pulses intact and symmetrical, Radial pulses intact and symmetrical, No calf tenderness Psychiatric: Alert and oriented to person, place and time, appropriate affect, intact judgement Neuro: Muscles Strength 5/5 in all 4 extremities, Sensation to light touch grossly present throughout, Cranial nerves II-XII grossly intact, no focal sensory deficits - Labs CBC & Chem 7: 07/11/19 05:51 07/11/19 05:51 Labs: Abnormal Lab Results - Last 24 Hours (Table) 07/11/19 07/11/19 07/11/19 Range/Units 05:51 05:51 11:17 RBC 3.58 L (4.30-5.90) m/uL Hgb 12.1 L (13.0-17.5) gm/dL Hct 35.1 L (39.0-53.0) % Neutrophils # 8.0 H (1.3-7.7) k/uL D-Dimer 0.65 H (<0.60) mg/L FEU Potassium 3.0 L (3.5-5.1) mmol/L Chloride 95 L (98-107) mmol/L BUN 33 H (9-20) mg/dL Creatinine 1.28 H (0.66-1.25) mg/dL Glucose 166 H (74-99) mg/dL Magnesium 1.4 L (1.6-2.3) mg/dL Triglycerides 221 H (<150) mg/dL HDL Cholesterol 38 L (40-60) mg/dL Assessment and Plan Plan: Shortness of breath With hx of CAD Troponins negative Cardiology recommending stress test, ordered for tomorrow Telemetry Constipation Add MiraLAX Hypokalemia and hypomagnesemia Replace and recheck in a.m. We'll probably need potassium and magnesium supplements prescription upon discharge Chronic GERD/Reflux, Hyperlipidemia, Hypertension All stable Resume meds Anticipated disposition: home Anticipated discharge: 1-2 days
[2019-07-11] MEDS ORDERED: HYDROmorphone 1 MG/ML 1 ML SYRINGE IVP STA (15:15)
[2019-07-11] MEDS ORDERED: HYDROmorphone 1 MG/ML 1 ML SYRINGE IM STA (15:15)
[2019-07-11] MEDS: POLYETHYLENE GLYCOL 3350 17 GM POWD.PACK PO SCH ×2 (16:22→18:56)
--- NOTE | 2019-07-11 16:30 | NM ---
EXAMINATION TYPE: NM pul vent and perfuse DATE OF EXAM: 07/11/2019 COMPARISON: NONE HISTORY: TECHNIQUE: Utilizing inhalation of 69.9 mCi Tc 99m DTPA aerosol and intravenous injection of 5.3 mCi of Tc 99m MAA, ventilation and perfusion images are acquired post injection in multiple projections. FINDINGS: Ventilation images are fairly normal. Perfusion images are within normal limits. IMPRESSION: Negative exam. There is very low probability of pulmonary embolism.
[2019-07-11 19:11] VITALS: RESP 18
[2019-07-11] MEDS: ATORVASTATIN 40 MG TAB PO SCH (19:43)
[2019-07-11] MEDS: traMADol 50 MG TAB PO PRN (21:35)
[2019-07-12] MEDS: NITROGLYCERIN OINT 1 INCH/GM PACKET TOPICAL SCH ×2 (01:17→01:18)
[2019-07-12] MEDS: HYDROcodone/APAP 7.5-325MG 1 EACH TAB PO PRN ×4 (05:21→23:23)
[2019-07-12] MEDS ORDERED: AMINOPHYLLINE 500 MG/20 ML VIAL IV PRN (07:00)
[2019-07-12] MEDS ORDERED: DIPYRIDAMOLE 70 MG in SODIUM CHLORIDE 0.9% 36 ML IV ONE (07:00)
[2019-07-12] MEDS ORDERED: REGADENOSON 0.4 MG/5 ML SYRINGE IV ONE (07:00)
[2019-07-12] MEDS ORDERED: CAFFEINE CITRATE 60 MG/3 ML VIAL IV PRN (07:00)
[2019-07-12 07:44] LABS: Calcium 9.4 mg/dL (8.4-10.2); Magnesium 1.9 mg/dL (1.6-2.3); Phosphorus 4.1 mg/dL (2.5-4.5); Potassium 3.2 mmol/L (3.5-5.1)
[2019-07-12] MEDS ORDERED: Potassium Replacement Protocol 1 EACH MISC MISCELLANE PRN (07:48)
--- NOTE | 2019-07-12 09:42 | PN ---
PROGRESS NOTE Mr. Lyn is a 79-year-old male with a known history of coronary artery disease, status post coronary artery bypass grafting, who presented with symptoms of back discomfort and some dyspnea. He has a known history of coronary artery disease, status post coronary artery bypass grafting with postoperative infection. He has been followed by Dr. Teran on a regular basis. He is feeling well this morning. His breathing is stable. He denies any dizziness or palpitation. He denies any nausea. He continues to be at this time on amlodipine 5 mg daily, aspirin once a day, Lipitor 40 mg daily, furosemide 40 mg daily, metolazone 5 mg daily, nitroglycerin paste, metoprolol tartrate 150 mg twice a day, potassium. PHYSICAL EXAMINATION: Blood pressure 142/70 with the heart rate in the 70s. LUNGS: Clear. HEART: Regular rate and rhythm. S1, S2. No S3 with a systolic murmur. No diastolic murmur. ABDOMEN: Soft, obese, nontender. EXTREMITIES: +2 edema. LAB DATA: Lab data revealed BUN and creatinine 34 and 1.23, potassium 3.2. Hemoglobin of 12.1. His troponins are less than 0.012, 0.022 and 0.021. IMPRESSION: 1. Dyspnea and back discomfort. No clear evidence to suggest acute ischemic event. 2. History of coronary artery disease, status post coronary artery bypass grafting. 3. Hypertension. 4. Hyperlipidemia. RECOMMENDATION: From the cardiac standpoint, will proceed with a myocardial perfusion imaging that was scheduled by Dr. Dutton and depending on those findings, further recommendation will be made. If there is no significant inducible ischemia, then no further cardiac workup will be needed at this time. MMODL / IJN: [id number] /
[2019-07-12 10:11] LABS: Hemoglobin A1C 7.4 % (4.0-6.0)
[2019-07-12] MEDS: POLYETHYLENE GLYCOL 3350 17 GM POWD.PACK PO SCH (11:02)
[2019-07-12] MEDS: POTASSIUM CHLORIDE ER 10 MEQ TAB.ER.PRT PO SCH (11:03)
[2019-07-12] MEDS: FUROSEMIDE 40 MG TAB PO SCH (11:03)
[2019-07-12] MEDS: PANTOPRAZOLE 40 MG TABLET PO SCH (11:03)
[2019-07-12] MEDS: ALLOPURINOL 300 MG TAB PO SCH (11:03)
[2019-07-12] MEDS: amLODIPine 5 MG TAB PO SCH (11:03)
[2019-07-12] MEDS: ASPIRIN 81 MG PO SCH (11:03)
[2019-07-12] MEDS: METOPROLOL TARTRATE 50 MG TAB PO SCH ×2 (11:03→21:17)
[2019-07-12] MEDS: METOLAZONE 5 MG TAB PO SCH (11:03)
[2019-07-12] MEDS ORDERED: POTASSIUM CHLORIDE ER 20 MEQ TAB.ER PO STA (14:24)
--- NOTE | 2019-07-12 17:15 | P.PN ---
Subjective Progress Note Date: 07/12/19 Principal diagnosis: Shortness of breath Patient was seen and examined. No acute events overnight. VQ scan performed yesterday and negative. Patient complains of back pain, chronic in nature, well-controlled with [place]. He denies any chest pain, current shortness of breath or palpitations. No nausea or vomiting. No fever or chills. Objective - Vital Signs Vital signs: Vital Signs Temp 98.1 F 07/12/19 15:18 Pulse 74 07/12/19 15:18 Resp 18 07/12/19 15:18 BP 121/66 07/12/19 15:18 Pulse Ox 94 L 07/12/19 15:18 Intake & Output 07/11/19 07/12/19 07/12/19 18:59 06:59 18:59 Intake Total 1600 600 540 Balance 1600 600 540 Intake: Oral 800 600 240 Other 800 300 Other: Voiding Method Toilet Toilet Toilet # Voids 1 - Exam General: [non toxic], [no distress], [appears at stated age] Derm: [warm], [dry] Head: [atraumatic], [normocephalic], [symmetric] Eyes: [EOMI], [no lid lag], [anicteric sclera] Mouth: [no lip lesion], [mucus membranes moist] Cardiovascular: [S1S2 reg], [no murmur] Lungs: [CTA bilateral], [no rhonchi, no rales] , [no accessory muscle use] Abdominal: [soft], [ nontender to palpation], [no guarding], [no appreciable organomegaly] Ext: [no gross muscle atrophy], [2+ pitting lower extremity edema with redness], [no contractures] Neuro: [no focal neuro deficits] Psych: [Alert], [oriented], [appropriate affect] - Labs CBC & Chem 7: 07/11/19 05:51 07/12/19 11:56 Labs: Abnormal Lab Results - Last 24 Hours (Table) 07/11/19 07/12/19 07/12/19 Range/Units 11:17 06:24 11:56 Potassium 3.2 L 3.4 L (3.5-5.1) mmol/L Chloride 93 L (98-107) mmol/L BUN 34 H (9-20) mg/dL Glucose 154 H (74-99) mg/dL Hemoglobin A1c 7.4 H (4.0-6.0) % Assessment and Plan Assessment: Dyspnea with history of CAD/AK post CABG Hypokalemia Hypertension Dyslipidemia Chronic lower back pain Morbid obesity with BMI 43.9 Troponins less than 0.0123 with EKG showing sinus rhythm with occasional PVCs. VQ scan negative. Plans: telemetry monitor. Plans for stress test tomorrow. Continue aspirin and Lipitor. Continue metoprolol. Potassium 3.2. Replaced via protocol. Repeat potassium 3.4. Plans: Replace potassium by mouth. Repeat BMP tomorrow morning. BP 121/66. Plans: Continue metoprolol. Continue metolazone. Continue Lasix. Monitor vitals, adjust medications as necessary. Plans: Continue Lipitor. Pain well-controlled with [place] every 6 hours. Plans: Structured weight loss program. [Patient admitted for shortness of breath. Plans for stress test tomorrow. DC his stress test negative tomorrow.]
[2019-07-12] MEDS: ATORVASTATIN 40 MG TAB PO SCH (21:17)
[2019-07-13] MEDS: HYDROcodone/APAP 7.5-325MG 1 EACH TAB PO PRN ×2 (05:08→12:20)
[2019-07-13] MEDS: amLODIPine 5 MG TAB PO SCH (10:23)
[2019-07-13] MEDS: ALLOPURINOL 300 MG TAB PO SCH (10:23)
[2019-07-13] MEDS: FUROSEMIDE 40 MG TAB PO SCH (10:23)
[2019-07-13] MEDS: METOPROLOL TARTRATE 50 MG TAB PO SCH (10:23)
[2019-07-13] MEDS: PANTOPRAZOLE 40 MG TABLET PO SCH (10:23)
[2019-07-13] MEDS: METOLAZONE 5 MG TAB PO SCH (10:23)
[2019-07-13] MEDS: POTASSIUM CHLORIDE ER 10 MEQ TAB.ER.PRT PO SCH (10:23)
[2019-07-13] MEDS: POLYETHYLENE GLYCOL 3350 17 GM POWD.PACK PO SCH (10:24)
[2019-07-13] MEDS: ASPIRIN 81 MG PO SCH (10:25)
--- NOTE | 2019-07-13 10:42 | PN ---
PROGRESS NOTE Mr. Lyn is a 79-year-old male with known history of coronary artery disease, status post coronary artery bypass grafting, history of chronic back pain, who presented with symptoms of dyspnea and back discomfort. He has no chest discomfort. His back is quite uncomfortable. He could not lay flat to undergo a myocardial perfusion imaging today. He denies any dizziness, palpitation. He denies any nausea. He denies any cough or fever. He continues to be on amlodipine 5 mg daily, aspirin once a day, Lipitor 40 mg daily, metolazone 5 mg daily, metoprolol tartrate 150 mg twice a day, potassium. PHYSICAL EXAMINATION: Blood pressure 128/50 with a heart rate in the 70s. LUNGS: Clear. HEART: Regular rate and rhythm, S1, S2. No S3 with systolic murmur, no diastolic murmur. No rub. ABDOMEN: Soft, obese, nontender. EXTREMITIES: +2 edema. LAB DATA: Revealed potassium 3.4. IMPRESSION: 1. Status post coronary artery bypass grafting with no evidence for acute coronary artery syndrome. 2. Back discomfort and shortness of breath. No evidence of angina pectoris. 3. Hypertension. 4. Hyperlipidemia. 5. Obesity. 6. Chronic back discomfort. RECOMMENDATION: From the cardiac standpoint, he is stable. He should be able to be discharged home today and to follow as an outpatient with Dr. Teran. MMMOE / MENDY: [id number] /
[2019-07-13 10:51] LABS: Calcium 9.4 mg/dL (8.4-10.2); Potassium 3.2 mmol/L (3.5-5.1)
--- NOTE | 2019-07-13 10:55 | ECHOF ---
Referral Reason:SOB MEASUREMENTS -------- HEIGHT: 157.5 cm WEIGHT: 142.9 kg BP: RVIDd: 3.0 cm (< 3.3) IVSd: 1.5 cm (0.6 - 1.1) LVIDd: 4.4 cm (3.9 - 5.3) LVPWd: 1.7 cm (0.6 - 1.1) IVSs: 2.1 cm LVIDs: 3.3 cm LVPWs: 1.9 cm LA Diam: 4.7 cm (2.7 - 3.8) Ao Diam: 3.5 cm (2.0 - 3.7) AV Cusp: 1.8 cm (1.5 - 2.6) LA Diam: 4.1 cm (2.7 - 3.8) MV E Mike: 0.59 m/s MV DecT: 229 ms MV A Mike: 1.06 m/s MV E/A Ratio: 0.55 RAP: 5.00 mmHg RVSP: 37.85 mmHg FINDINGS -------- Sinus rhythm. Morbid Obesity This was a techncally difficult study with suboptimal views, , Lumason utilized for enhancement of images. The left ventricular size is normal. There is moderate concentric left ventricular hypertrophy. O verall left ventricular systolic function is normal with, an EF between 55 - 60 %. The right ventricle is normal in size. The left atrium is moderately dilated. The right atrial size is normal. 5.0mg OF Lumason UTLIZED: 2 OR MORE WALL SEGMENTS NOT VISUALIZED. There is mild aortic valve sclerosis. There is no evidence of aortic regurgitation. Mild mitral annular calcification present. Mild mitral regurgitation is present. Mild tricuspid regurgitation present. There is mild pulmonary hypertension. The right ventricular systolic pressure, as measured by Doppler, is 37.85mmHg. The pulmonic valve was not well visualized. There is no pulmonic regurgitation present. The aortic root size is normal. There is no pericardial effusion. CONCLUSIONS -------- 1. Sinus rhythm. 2. Morbid Obesity 3. This was a techncally difficult study with suboptimal views, , Lumason utilized for enhancement of images. 4. The left ventricular size is normal. 5. There is moderate concentric left ventricular hypertrophy. 6. Overall left ventricular systolic function is normal with, an EF between 55 - 60 %. 7. 8. The left atrium is moderately dilated. 9. 5.0mg OF Lumason UTLIZED: 2 OR MORE WALL SEGMENTS NOT VISUALIZED. 10. There is mild aortic valve sclerosis. 11. Mild mitral annular calcification present. 12. Mild mitral regurgitation is present. 13. Mild tricuspid regurgitation present. 14. There is mild pulmonary hypertension. 15. The pulmonic valve was not well visualized. 16. There is no pericardial effusion. ACCESS LEAD: Diamond Dewitt RDCS
[2019-07-13 11:25] VITALS: BP 142/82; PULSE 85; TEMP 97.8
[2019-07-13] MEDS: POTASSIUM CHLORIDE ER 20 MEQ TAB.ER PO SCH ×2 (12:20→14:46)
[2019-07-13] MEDS ORDERED: FUROSEMIDE 10 MG/ML 4 ML VIAL IV STA (12:26)
--- NOTE | 2019-07-13 12:55 | P.DS ---
Providers Date of admission: 07/12/19 13:48 Expected date of discharge: 07/13/19 Attending physician: Page [facility] DO Consults: 07/10/19 11:53 Consult Physician Urgent Consulting Provider: [facility] Consult Reason/Comments: Anginal equivalent Do you want consulting provider notified?: Yes Primary care physician: [facility] Course: 79-year-old male with PMH of CAD, hypertension, dyslipidemia, sleep apnea presents the ED for an episode of shortness of breath. He had no complaints of chest pain, diaphoresis or dizziness. Of note, patient has a history of CABG in 2016. Troponins was less than 0.0123 with EKG showing sinus rhythm with occasional PVCs. VQ scan was performed and was negative for PE. Patient was continued on aspirin, Lipitor and metoprolol. Cardiology was consulted and recommended stress test. Patient was unable to complete his stress test due to physical limitations. He was cleared for discharge from cardiology standpoint. Patient was noted to have low potassium of 3.2 on admission. This was replaced by mouth. Patient was seen and examined. No acute events overnight. Patient denies any chest pain, shortness of breath or palpitations. Echocardiogram was done which showed EF 55-60% with moderate concentric LVH. Wanting to go home. General: [non toxic], [no distress], [appears at stated age] Derm: [warm], [dry] Head: [atraumatic], [normocephalic], [symmetric] Eyes: [EOMI], [no lid lag], [anicteric sclera] Mouth: [no lip lesion], [mucus membranes moist] Cardiovascular: [S1S2 reg], [no murmur] Lungs: [CTA bilateral], [no rhonchi, no rales] , [no accessory muscle use] Abdominal: [soft], [ nontender to palpation], [no guarding], [no appreciable organomegaly] Ext: [no gross muscle atrophy], [2+ pitting lower extremity edema with redness], [no contractures] Neuro: [no focal neuro deficits] Psych: [Alert], [oriented], [appropriate affect] Dyspnea with history of CAD/LA post CABG Hypokalemia Hypertension Dyslipidemia Chronic lower back pain Morbid obesity with BMI 43.9 Troponins less than 0.0123 with EKG showing sinus rhythm with occasional PVCs. VQ scan negative. Stress test unable to be complete. Plans: personnel monitor. Cleared by cardiology for discharge. Continue aspirin and Lipitor. Continue metoprolol. Potassium 3.2. Plans: Replace potassium by mouth. Repeat BMP tomorrow morning. BP 142/82. Plans: Continue metoprolol. Continue metolazone. Continue Lasix. Monitor vitals, adjust medications as necessary. Plans: Continue Lipitor. Pain well-controlled with [place] every 6 hours. Plans: Structured weight loss program. [Patient admitted for shortness of breath. Cleared by cardiology for discharge. Replacing potassium. Recheck potassium at 2 PM. DC if within normal limits.] Pertinent Studies: Chest x-ray, VQ scan, echocardiogram Patient Condition at Discharge: Stable Plan - Discharge Summary Discharge Rx Participant: No New Discharge Prescriptions: Continue Pantoprazole [Protonix] 40 mg PO DAILY amLODIPine [Norvasc] 5 mg PO DAILY Atorvastatin [Lipitor] 40 mg PO HS Allopurinol [Zyloprim] 300 mg PO DAILY Metoprolol Tartrate [Lopressor] 150 mg PO BID Furosemide [Lasix] 40 mg PO DAILY Aspirin EC [Ecotrin Low Dose] 162 mg PO DAILY PRN PRN Reason: Pain Metolazone [Zaroxolyn] 5 mg PO DAILY traMADol HCL 50 mg PO DAILY PRN PRN Reason: Pain Potassium Chloride ER [K-Dur 10] 10 meq PO DAILY B Complex-Vit C-Vit E-Zinc [Z-Bec] 1 tab PO DAILY Cholecalciferol [Vitamin D3 (25 Mcg = 1000 Iu)] 1,000 unit PO DAILY HYDROcodone/APAP 7.5-325MG [[place] 7.5-325] 1 tab PO Q8H PRN PRN Reason: pain Discharge Medication List Pantoprazole [Protonix] 40 mg PO DAILY 06/19/16 [History] Atorvastatin [Lipitor] 40 mg PO HS 07/21/16 [History] amLODIPine [Norvasc] 5 mg PO DAILY 07/21/16 [History] Allopurinol [Zyloprim] 300 mg PO DAILY 07/22/16 [History] Metoprolol Tartrate [Lopressor] 150 mg PO BID 10/25/16 [History] Furosemide [Lasix] 40 mg PO DAILY 01/11/17 [History] Aspirin EC [Ecotrin Low Dose] 162 mg PO DAILY PRN 09/20/18 [History] Metolazone [Zaroxolyn] 5 mg PO DAILY 09/22/18 [History] B Complex-Vit C-Vit E-Zinc [Z-Bec] 1 tab PO DAILY 07/10/19 [History] Cholecalciferol [Vitamin D3 (25 Mcg = 1000 Iu)] 1,000 unit PO DAILY 07/10/19 [History] HYDROcodone/APAP 7.5-325MG [[place] 7.5-325] 1 tab PO Q8H PRN 07/10/19 [History] Potassium Chloride ER [K-Dur 10] 10 meq PO DAILY 07/10/19 [History] traMADol HCL 50 mg PO DAILY PRN 07/10/19 [History] Follow up Appointment(s)/Referral(s): Martinez Yoo MD [Primary Care Provider] - 1-2 days Piotr Teran MD [STAFF PHYSICIAN] - 07/22/19 4:00 pm Activity/Diet/Wound Care/Special Instructions: Diet: Cardiac, low-salt Follow-up PCP within 3 days of discharge. Follow-up cardiology with the appointment given to you. Take all medications as advised. Discharge Disposition: HOME SELF-CARE
== END 2019-07-13 15:10 | disposition home or self-care (01) ==
LOC: EC 07:38 → UNDOADMOB 11:53 → 1SOBS 11:53 → OBSVTOIN 07-12 13:48 → INTOOBSV 07-12 13:48 → UNDODISIN 07-13 15:10
PROVIDERS: ADMIT Internal Medicine; ATTEND Internal Medicine
DX: R06.02 Shortness of breath (principal); I25.10 Atherosclerotic heart disease of native coronary artery without angina pectoris; I25.2 Old myocardial infarction; E87.6 Hypokalemia; E78.5 Hyperlipidemia, unspecified; M54.5 Low back pain; G89.29 Other chronic pain; E66.01 Morbid (severe) obesity due to excess calories; E83.42 Hypomagnesemia; Z68.41 Body mass index [BMI] 40.0-44.9, adult; I10 Essential (primary) hypertension; I49.3 Ventricular premature depolarization; K21.9 Gastro-esophageal reflux disease without esophagitis; M1A.9XX0 Chronic gout, unspecified, without tophus (tophi); K59.00 Constipation, unspecified; Z79.82 Long term (current) use of aspirin; Z79.899 Other long term (current) drug therapy; Z80.0 Family history of malignant neoplasm of digestive organs; Z85.828 Personal history of other malignant neoplasm of skin; Z87.891 Personal history of nicotine dependence; Z95.1 Presence of aortocoronary bypass graft; Z96.651 Presence of right artificial knee joint; Z92.21 Personal history of antineoplastic chemotherapy; M19.90 Unspecified osteoarthritis, unspecified site; Z98.42 Cataract extraction status, left eye; Z98.41 Cataract extraction status, right eye; Z90.49 Acquired absence of other specified parts of digestive tract; Z99.89 Dependence on other enabling machines and devices; G47.30 Sleep apnea, unspecified; Z71.3 Dietary counseling and surveillance; Z86.14 Personal history of Methicillin resistant Staphylococcus aureus infection
CPT/HCPCS: 93005 ×2; 96365; 96366; 96375 ×2; 96376; 99285; 36415; 85379; 83880; 80061; 80053; 80048 ×3; 83735 ×3; 84100 ×2; 84132 ×2; 84484; 85025 ×2; 85610; 85730; 83036; 71046; 78582; G0378 ×4; C8929; A9540; A9567; J1940; J1170 ×2; J3475; Q9950; 93306; 96374

== ENCOUNTER 2019-08-17 19:37 | Inpatient (IN) | payer MEDICARE ==
[2019-08-17] MEDS ORDERED: SODIUM CHLORIDE 0.9% 500 ML 500 ML IV STA (20:03)
[2019-08-17 20:29] LABS: Basophils # (A) 0.1 k/uL (0-0.2); Basophils % (A) 1 %; Eosinophils # (A) 0.1 k/uL (0-0.7); Eosinophils % (A) 1 %; HCT 36.5 % (39.0-53.0); HGB 12.1 gm/dL (13.0-17.5); Lymphocytes # (A) 0.6 k/uL (1.0-4.8); Lymphocytes % (A) 6 %; MCH 33.1 pg (25.0-35.0); MCHC 33.2 g/dL (31.0-37.0); MCV 99.7 fL (80.0-100.0); Macrocytosis Slight; Mean Platelet Volume 7.7; Monocytes # (A) 0.1 k/uL (0-1.0); Monocytes % (A) 1 %; Neutrophils # (A) 8.7 k/uL (1.3-7.7); Neutrophils % (A) 91 %; Platelet Count 279 k/uL (150-450); Poikilocytosis Slight; RBC 3.67 m/uL (4.30-5.90); RDW 14.8 % (11.5-15.5); WBC 9.5 k/uL (3.8-10.6)
--- NOTE | 2019-08-17 20:38 | ED ---
General Adult HPI - General Chief complaint: Chest Pain Stated complaint: Chest Pain Time Seen by Provider: 08/17/19 19:43 Source: patient, EMS Mode of arrival: EMS Limitations: no limitations - History of Present Illness Initial comments: 79-year-old male patient passed medical history significant for coronary artery disease, quadruple bypass in 2016, history of chronic B cell lymphoma currently receiving chemotherapy treatments every 6 weeks, presents to the emergency department today for evaluation of chest pain, mid upper back pain, and jaw pain. Patient states symptoms started around 6 PM. Patient states the discomfort in his chest feels like a burning sensation. States that he did attempt to take Tums and acid relieving medications without relief. Patient states he started to feel worse so he did present here for further evaluation. Patient was given aspirin and nitro tablets in the ambulance. States the nitro did improve his symptoms. Patient did receive an infusion of chemotherapy today. States he has never folic this after chemo before. He denies any cough or congestion. Denies any dizziness or weakness. Denies fevers or chills. He was evaluated in June for an episode of anginal equivalent symptoms. He underwent outpatient stress test which was was told was fine. Patient denies any recent rash, fever, chills, shortness breath, chest pain, abdominal pain, nausea, vomiting, diarrhea, constipation, back pain, numbness, tingling, dizziness, weakness, hematuria, dysuria, urinary urgency, urinary frequency, headache, visual changes, or any other complaints. - Related Data Home Medications Medication Instructions Recorded Confirmed Pantoprazole [Protonix] 40 mg PO DAILY 06/19/16 07/10/19 Atorvastatin [Lipitor] 40 mg PO HS 07/21/16 07/10/19 amLODIPine [Norvasc] 5 mg PO DAILY 07/21/16 07/10/19 Allopurinol [Zyloprim] 300 mg PO DAILY 07/22/16 07/10/19 Metoprolol Tartrate [Lopressor] 150 mg PO BID 10/25/16 07/10/19 Furosemide [Lasix] 40 mg PO DAILY 01/11/17 07/10/19 Aspirin EC [Ecotrin Low Dose] 162 mg PO DAILY PRN 09/20/18 07/10/19 Metolazone [Zaroxolyn] 5 mg PO DAILY 09/22/18 07/10/19 B Complex-Vit C-Vit E-Zinc [Z-Bec] 1 tab PO DAILY 07/10/19 07/10/19 Cholecalciferol [Vitamin D3 (25 1,000 unit PO DAILY 07/10/19 07/10/19 Mcg = 1000 Iu)] HYDROcodone/APAP 7.5-325MG [[place] 1 tab PO Q8H PRN 07/10/19 07/10/19 7.5-325] Potassium Chloride ER [K-Dur 10] 10 meq PO DAILY 07/10/19 07/10/19 traMADol HCL 50 mg PO DAILY PRN 07/10/19 07/10/19 Allergies Allergy/AdvReac Type Severity Reaction Status Date / Time No Known Allergies Allergy Verified 08/17/19 19:49 Review of Systems ROS Statement: Those systems with pertinent positive or pertinent negative responses have been documented in the HPI. ROS Other: All systems not noted in ROS Statement are negative. Past Medical History Past Medical History: Coronary Artery Disease (CAD), Cancer, GERD/Reflux, Hyperlipidemia, Hypertension, Myocardial Infarction (DE), Musculoskeletal Disorder, Osteoarthritis (OA), Sleep Apnea/CPAP/BIPAP Additional Past Medical History / Comment(s): SKIN CANCER , GOUT CHRONIC BACK,SKIN LESIONS , chemo 09/18/2018 Last Myocardial Infarction Date:: MAY 2016 History of Any Multi-Drug Resistant Organisms: MRSA Date of last positivie culture/infection: 07/22/16 MDRO Source:: LOWER LEGS Past Surgical History: Cholecystectomy, Coronary Bypass/CABG, Heart Catheterization Additional Past Surgical History / Comment(s): PICC line insertion/removed, bilateral caract removals, COLONOSCOPY, EGD, CANCEROUS SKIN LESIONS REMOVED, TOTAL RIGHT KNEE REPLACEMENT, 06-04-16 QUAD BYPASS Past Anesthesia/Blood Transfusion Reactions: Previous Problems w/ Anesthesia Additional Past Anesthesia/Blood Transfusion Reaction / Comment(s): HAD A HARD TIME COMING OUT OF ANESTHESIA AFTER CHOLECYSTECTOMY Past Psychological History: No Psychological Hx Reported Smoking Status: Former smoker Past Alcohol Use History: None Reported Past Drug Use History: None Reported - Past Family History Father Family Medical History: Vascular Disorder Additional Family Medical History / Comment(s): POOR CIRCULATION-HAD AMPUTATIONS D/T POOR CIRCULATION Mother Family Medical History: Cancer Additional Family Medical History / Comment(s): STOMACH CANCER General Exam Limitations: no limitations General appearance: alert, in no apparent distress, other (This is a well- developed, well-nourished adult male patient in no acute distress. Vital signs upon presentation are temperature 98.1F, pulse 100, respirations 18, blood p ressure 147/87, pulse ox 98% on room air.) Eye exam: Present: normal appearance, PERRL, EOMI. Absent: scleral icterus, conjunctival injection, periorbital swelling ENT exam: Present: normal exam, normal oropharynx, mucous membranes moist Respiratory exam: Present: normal lung sounds bilaterally. Absent: respiratory distress, wheezes, rales, rhonchi, stridor Cardiovascular Exam: Present: regular rate, normal rhythm, normal heart sounds. Absent: systolic murmur, diastolic murmur, rubs, gallop, clicks GI/Abdominal exam: Present: soft, normal bowel sounds. Absent: distended, tenderness, guarding, rebound, rigid Neurological exam: Present: alert, oriented X3, CN II-XII intact Psychiatric exam: Present: normal affect, normal mood Skin exam: Present: warm, dry, intact, normal color. Absent: rash Course Vital Signs 08/17/19 08/17/19 08/17/19 19:46 21:09 22:07 Temperature 98.1 F Pulse Rate 100 89 85 Respiratory 18 19 18 Rate Blood Pressure 147/87 156/66 172/70 O2 Sat by Pulse 98 97 98 Oximetry EKG Findings - EKG Comments: EKG Findings:: EKG obtained in 1942 shows sinus tachycardia with a ventricular rate of 101, GA interval 204, QRS duration 100, QT 304, QTC 394. No evidence of ST elevation or depression. Medical Decision Making - Medical Decision Making 79-year-old male patient with past medical history significant for quadruple bypass presents to the emergency department today for evaluation of chest pain and shortness of breath. Physical examination is unremarkable. Labs reviewed and did reveal elevated troponin at 0.037. EKG showed no evidence for STEMI. Patient will be admitted to the hospital for serial troponins and evaluation by cardiology in the morning. We will start heparin for possibility of NSTEMI. Patient is agreeable with this plan. - Lab Data Result diagrams: 08/17/19 20:20 08/17/19 20:20 Lab Results 08/17/19 08/17/19 08/17/19 Range/Units 20:20 20:20 20:20 WBC 9.5 (3.8-10.6) k/uL RBC 3.67 L (4.30-5.90) m/uL Hgb 12.1 L (13.0-17.5) gm/dL Hct 36.5 L (39.0-53.0) % MCV 99.7 (80.0-100.0) fL MCH 33.1 (25.0-35.0) pg MCHC 33.2 (31.0-37.0) g/dL RDW 14.8 (11.5-15.5) % Plt Count 279 (150-450) k/uL Neutrophils % 91 % Lymphocytes % 6 % Monocytes % 1 % Eosinophils % 1 % Basophils % 1 % Neutrophils # 8.7 H (1.3-7.7) k/uL Lymphocytes # 0.6 L (1.0-4.8) k/uL Monocytes # 0.1 (0-1.0) k/uL Eosinophils # 0.1 (0-0.7) k/uL Basophils # 0.1 (0-0.2) k/uL Poikilocytosis Slight Macrocytosis Slight PT 10.4 (9.0-12.0) sec INR 1.0 (<1.2) APTT 35.7 H (22.0-30.0) sec Sodium 140 (137-145) mmol/L Potassium 3.7 (3.5-5.1) mmol/L Chloride 100 (98-107) mmol/L Carbon Dioxide 26 (22-30) mmol/L Anion Gap 14 mmol/L BUN 33 H (9-20) mg/dL Creatinine 1.10 (0.66-1.25) mg/dL Est GFR (CKD-EPI)AfAm 75 (>60 ml/min/1.73 sqM) Est GFR (CKD-EPI)NonAf 65 (>60 ml/min/1.73 sqM) Glucose 372 H (74-99) mg/dL Calcium 9.4 (8.4-10.2) mg/dL Magnesium 1.4 L (1.6-2.3) mg/dL Total Bilirubin 0.6 (0.2-1.3) mg/dL AST 48 (17-59) U/L ALT 32 (4-49) U/L Alkaline Phosphatase 85 (38-126) U/L Troponin I (0.000-0.034) ng/mL Total Protein 6.6 (6.3-8.2) g/dL Albumin 4.1 (3.5-5.0) g/dL Lipase 160 (23-300) U/L 08/17/19 Range/Units 20:20 WBC (3.8-10.6) k/uL RBC (4.30-5.90) m/uL Hgb (13.0-17.5) gm/dL Hct (39.0-53.0) % MCV (80.0-100.0) fL MCH (25.0-35.0) pg MCHC (31.0-37.0) g/dL RDW (11.5-15.5) % Plt Count (150-450) k/uL Neutrophils % % Lymphocytes % % Monocytes % % Eosinophils % % Basophils % % Neutrophils # (1.3-7.7) k/uL Lymphocytes # (1.0-4.8) k/uL Monocytes # (0-1.0) k/uL Eosinophils # (0-0.7) k/uL Basophils # (0-0.2) k/uL Poikilocytosis Macrocytosis PT (9.0-12.0) sec INR (<1.2) APTT (22.0-30.0) sec Sodium (137-145) mmol/L Potassium (3.5-5.1) mmol/L Chloride (98-107) mmol/L Carbon Dioxide (22-30) mmol/L Anion Gap mmol/L BUN (9-20) mg/dL Creatinine (0.66-1.25) mg/dL Est GFR (CKD-EPI)AfAm (>60 ml/min/1.73 sqM) Est GFR (CKD-EPI)NonAf (>60 ml/min/1.73 sqM) Glucose (74-99) mg/dL Calcium (8.4-10.2) mg/dL Magnesium (1.6-2.3) mg/dL Total Bilirubin (0.2-1.3) mg/dL AST (17-59) U/L ALT (4-49) U/L Alkaline Phosphatase (38-126) U/L Troponin I 0.037 H* (0.000-0.034) ng/mL Total Protein (6.3-8.2) g/dL Albumin (3.5-5.0) g/dL Lipase (23-300) U/L - Radiology Data Radiology results: report reviewed, image reviewed Two-view x-ray of the chest is obtained. Report is reviewed in its entirety. Impression by Dr. Glynn shows subsegmental atelectasis. No heart failure. Normal heart. Disposition Clinical Impression: Chest pain, Elevated troponin Disposition: ADMITTED IP TO THIS [facility] Condition: Serious Decision to Admit Reason: Admit from EC Decision Date: 08/17/19 Decision Time: 22:00
[2019-08-17 20:49] LABS: Partial Thromboplastin Time 35.7 sec (22.0-30.0); Prothrombin Time 10.4 sec (9.0-12.0)
[2019-08-17] MEDS ORDERED: HYDROcodone/APAP 5-325MG 1 EACH TAB PO STA (20:49)
[2019-08-17] MEDS ORDERED: HYDROcodone/APAP 7.5-325MG 1 EACH TAB PO STA (20:52)
--- NOTE | 2019-08-17 20:54 | XR ---
EXAMINATION TYPE: XR chest 2V DATE OF EXAM: 08/17/2019 COMPARISON: 07/02/2019 HISTORY: Chest pain TECHNIQUE: 2 views FINDINGS: There is some linear density right lung base. Heart size is normal. There is left subclavia n catheter with tip in the superior vena cava. There are sternal wires. IMPRESSION: Subsegmental atelectasis. No heart failure. Normal heart.
[2019-08-17 20:59] LABS: Potassium 3.7 mmol/L (3.5-5.1)
[2019-08-17 21:00] LABS: Albumin 4.1 g/dL (3.5-5.0); Calcium 9.4 mg/dL (8.4-10.2); Magnesium 1.4 mg/dL (1.6-2.3); Total Bilirubin 0.6 mg/dL (0.2-1.3); Total Protein 6.6 g/dL (6.3-8.2)
[2019-08-17] MEDS ORDERED: Magnesium Replacement Protocol 1 EACH MISC MISCELLANE PRN (21:44)
[2019-08-17] MEDS ORDERED: HEPARIN SODIUM,PORCINE 5,000 UNIT/ML 1 ML VIAL IV ONE (21:52)
[2019-08-17] MEDS ORDERED: NITROGLYCERIN SL TABS 0.4 MG TAB SUBLINGUAL PRN (21:52)
[2019-08-17] MEDS: MAGNESIUM SULFATE-D5W PMX 1 GM in DEXTROSE/WATER 1 100ML.BAG IVPB SCH ×2 (22:05→23:20)
[2019-08-17] MEDS: HEPARIN SOD,PORK IN 0.45% NACL 25,000 UNIT in 0.45% NACL 1 250ML.BAG IV SCH (22:31)
[2019-08-17 22:47] LABS: Appearance,Urine Clear (Clear); Bilirubin,Urine Negative (Negative); Blood,Urine Negative (Negative); Color,Urine Light Yellow; Glucose,Urine (UA) 4+ (Negative); Ketones,Urine Negative (Negative); Leukocyte Esterase,Urine Negative (Negative); Nitrite,Urine Negative (Negative); Protein,Urine Trace (Negative); Specific Gravity,Urine 1.012 (1.001-1.035); Urobilinogen,Urine <2.0 mg/dL (<2.0)
[2019-08-18] MEDS: HYDROcodone/APAP 7.5-325MG 1 EACH TAB PO PRN ×3 (03:35→22:07)
[2019-08-18 06:49] LABS: Magnesium 1.9 mg/dL (1.6-2.3)
[2019-08-18] MEDS ORDERED: ALPRAZolam 0.25 MG TAB PO PRN (08:19)
[2019-08-18] MEDS ORDERED: NITROGLYCERIN SL TABS 0.4 MG TAB SUBLINGUAL PRN (08:19)
[2019-08-18] MEDS ORDERED: ASPIRIN 325 MG TAB PO STA (08:19)
[2019-08-18] MEDS ORDERED: SODIUM CHLORIDE 0.9% 1,000 ML in EMPTY BAG 1 BAG IV ONE (08:19)
[2019-08-18] MEDS ORDERED: ALPRAZolam 0.5 MG TAB PO PRN (08:19)
[2019-08-18] MEDS ORDERED: ATORVASTATIN 80 MG TAB PO STA (08:19)
--- NOTE | 2019-08-18 08:34 | CONS ---
HUMBERTO Rosales is a 79-year-old gentleman with history of coronary artery disease status post CABG, hypertension, dyslipidemia, and chronic back pain, who presented to hospital complaining of chest pain. He describes it as a chest pressure in the interscapular area that started yesterday. Gradually got worse. He called EMS and came to hospital. It was moderate intensity at rest. An EKG showed sinus rhythm with nonspecific ST-T wave changes. He has had cardiac enzymes and the second set of troponin came back elevated at 2.5, suggestive of non ST-segment elevation [place]. The patient was in the hospital in June with shortness of breath and ruled out for myocardial infarction and was discharged home. At the time of my evaluation this morning he appears comfortable at rest. Hemodynamically stable and symptom free. PAST MEDICAL HISTORY: Significant for CAD, status post CABG, hypertension, dyslipidemia. CURRENT MEDICATIONS: Current medications include melatonin, Norvasc, K-Dur, Protonix, Zaroxolyn, Lopressor, [place], Lasix, Lipitor and aspirin. ALLERGIES: There are no known drug allergies. FAMILY HISTORY: Negative for premature coronary artery disease. SOCIAL HISTORY: Negative for current smoking, EtOH abuse or drug abuse. REVIEW OF SYSTEMS: HEENT is unremarkable. CARDIAC: As described above. RESPIRATORY: As described above. GI: Negative. GENITOURINARY: Negative. ALLERGY/IMMUNOLOGY: Negative. SKIN: Negative. MUSCULOSKELETAL: Significant for arthritis. PSYCHOSOCIAL: Negative. ENDOCRINE: Negative. DERM: Negative. CONSTITUTIONAL: Negative. ONCOLOGICAL: Negative. MASTER PLUMBER: Negative. Rest of the system review is not relevant. PHYSICAL EXAMINATION: On exam, patient is afebrile. Heart rate is 84 beats per minute. Blood pressure is 140/60, respiratory rate is 18, O2 sat is 91% on room air. There is no jugular venous distention. Carotid upstroke is normal. There is no bruit. Chest exam reveals good air entry bilaterally. Heart exam reveals first and second heart sounds. No gallop. No murmur. Abdomen is soft, nontender. Exam of extremities revealed mild edema. Peripheral pulses are felt. LABS: Labs show a hemoglobin of 12.1, platelet count is 279. Potassium is 3.7. BUN is 33, creatinine is 1.1. Troponins are elevated at 0.03 and 2.5. Lipid profile shows an LDL cholesterol of 96. ASSESSMENT: 1. Acute non ST-segment elevation myocardial infarction. 2. Coronary artery disease, status post coronary artery bypass grafting. 3. Hypertension. 4. Dyslipidemia. PLAN: I advised the patient to undergo cardiac catheterization. It will be done later today. He understands risks, benefits and alternatives. JOSE J / MENDY: [id number] /
[2019-08-18] MEDS ORDERED: ASPIRIN 325 MG TAB PO SCH (09:00)
[2019-08-18] MEDS ORDERED: IV FLUID CONTINUATION 950 ML IV ONE (09:46)
[2019-08-18] MEDS ORDERED: LIDOCAINE 1% INJ 10MG/ML (20 ML MDV) ONE (09:49)
[2019-08-18] MEDS ORDERED: fentaNYL (PF) 50 MCG/ML 2 ML AMP ONE (09:49)
[2019-08-18] MEDS: MIDAZOLAM 2 MG/2 ML VIAL IV ONE ×2 (10:25→11:39)
[2019-08-18] MEDS ORDERED: fentaNYL (PF) 50 MCG/ML 2 ML AMP IV ONE (10:25)
[2019-08-18] MEDS ORDERED: LIDOCAINE 1% INJ 10MG/ML (20 ML MDV) SQ ONE (10:26)
[2019-08-18] MEDS ORDERED: HYDROmorphone 1 MG/ML 1 ML SYRINGE ONE (10:26)
[2019-08-18] MEDS ORDERED: HYDROmorphone 1 MG/ML 1 ML SYRINGE IVP ONE (10:27)
[2019-08-18] MEDS ORDERED: NITROGLYCERIN OINT 1 INCH/GM PACKET TOPICAL ONE ×2 (10:31→11:17)
[2019-08-18] MEDS ORDERED: IOPAMIDOL-370 125ML BTL INJ ONE ×2 (10:42)
[2019-08-18] MEDS ORDERED: ENALAPRILAT 1.25 MG/ML 1 ML VIAL ONE (11:05)
[2019-08-18] MEDS ORDERED: IOPAMIDOL-370 50ML BTL INJ ONE (11:07)
[2019-08-18] MEDS ORDERED: ENALAPRILAT 1.25 MG/ML 1 ML VIAL IV ONE (11:07)
[2019-08-18] MEDS ORDERED: IOPAMIDOL-370 100ML BTL INJ ONE ×3 (11:12→11:38)
[2019-08-18] MEDS ORDERED: NITROGLYCERIN SL TABS 0.4 MG TAB SUBLINGUAL ONE ×3 (11:20→11:21)
[2019-08-18] MEDS ORDERED: RX INFO: IV CONTRAST WAS GIVEN 1 EACH MISC MISCELLANE PRN (11:41)
--- NOTE | 2019-08-18 12:02 | CC ---
CARDIAC CATHETERIZATION REPORT INDICATION: Non ST-segment elevation WYMaureen Marquez is a 79-year-old gentleman with history of coronary artery disease, status post CABG with JUNE to LAD, venous graft to diagonal, ramus intermedius and PDA, who presented to hospital with chest pain and ruled in for myocardial infarction. He was advised to undergo cardiac catheterization for further management. He has been explained of risks, benefits and alternatives understood and accepted. PROCEDURE NOTE: After obtaining informed consent, left heart catheterization, coronary angiogram, aortogram, selective injection of the bypass grafts is performed via the right femoral artery using standard Melanie catheters. We used a Kirti catheter to engage the JUNE catheter and used right Amplatz catheter and the bypass graft catheter has remained unsuccessful attempts at finding the venous graft to the ramus intermedius. The patient tolerated the procedure well. He was hypertensive during the study was given medications to control the blood pressure. He received sedation and analgesics for back pain. The patient received moderate conscious sedation. Total sedation time was 56 minutes. FINDINGS: 1. HEMODYNAMICS: Left ventricular end-diastolic pressure is 18 to 22 mm. There is no significant gradient across the aortic valve. 2. LEFT VENTRICULOGRAM: Left ventriculogram is not performed. 3. AORTOGRAM: Aortogram was performed to locate the bypass grafts. I do not see any aortic aneurysm or dissection. We have seen one venous graft. 4. ANGIOGRAPHIC DATA: Left Main Coronary Artery: Left main coronary artery is a normal-sized vessel. There is a 95% stenosis distally. The circumflex coronary artery is totally occluded in the proximal part. LAD shows severe stenosis. There is competitive flow in the LAD system. Right coronary artery is a large dominant vessel that shows mild to moderate diffuse disease with 70% stenosis involving PDA. JUNE to LAD appears patent. Proximal and distal anastomotic sites are free of significant disease and the [place] LAD is free of significant stenosis. Venous graft to diagonal appears patent. There is a 60% to 70% stenosis in its midportion. Venous graft to the PDA appears occluded. We could not locate the venous graft to the ramus intermedius. It is possible that it is occluded. CONCLUSIONS: 1. [place] 3-vessel coronary artery disease with patent JUNE to LAD and venous graft to diagonal. 2. Patent JUNE to LAD. 3. Patent venous graft to diagonal. 4. Occluded venous graft to PDA and possible occlusion of the venous graft to ramus. PLAN: Patient will be managed with optimal medical therapy and undergo an outpatient stress test. If he has ischemia in diagonal distribution, we will consider angioplasty of the venous graft to diagonal. JOSE J / MENDY: [id number] /
--- NOTE | 2019-08-18 12:08 | LTR ---
August 18, 2019 Re: Bobby Lyn Dear Dr. Yoo: I performed cardiac catheterization on Bobby Lyn. A detailed catheterization note is enclosed for your records. In brief, cardiac catheterization revealed [place] 3-vessel coronary artery disease with patent JUNE to LAD and venous graft to diagonal with occluded venous grafts to the PDA and ramus intermedius. The plan at this stage is to treat him with optimal medical therapy and consider outpatient stress test to assess for ischemia in diagonal distribution. Thank you for allowing me to participate in the care of this pleasant gentleman. Sincerely, MD JOSE J Baca / MENDY: [id number] /
--- NOTE | 2019-08-18 12:37 | ECHOF ---
Referral Reason:chest pain MEASUREMENTS -------- HEIGHT: 182.9 cm WEIGHT: 146.1 kg BP: IVSd: 1.2 cm (0.6 - 1.1) LVIDd: 4.2 cm (3.9 - 5.3) LVPWd: 1.6 cm (0.6 - 1.1) IVSs: 1.6 cm LVIDs: 2.0 cm LVPWs: 1.3 cm Ao Diam: 3.4 cm (2.0 - 3.7) AV Cusp: 2.2 cm (1.5 - 2.6) LA Diam: 3.2 cm (2.7 - 3.8) MV EXCURSION: 18.351 mm (> 18.000) MV EF SLOPE: 77 mm/s (70 - 150) EPSS: 1.5 cm MV E Mike: 1.01 m/s MV DecT: 200 ms MV A Mike: 1.42 m/s MV E/A Ratio: 0.71 RAP: 5.00 mmHg RVSP: 30.70 mmHg FINDINGS -------- Sinus rhythm. This was a technically difficult study with suboptimal views. The left ventricular size is normal. There is mild concentric left ventricular hypertrophy. Overa ll left ventricular systolic function is normal with, an EF between 55 - 60 %. The right ventricle is normal in size. The left atrial size is normal. The right atrial size is normal. Lumason used The aortic valve was not well visualized. The mitral valve is normal. Mild mitral regurgitation is present. The tricuspid valve appears structurally normal. Trace tricuspid regurgitation present. Right samuel tricular systolic pressure is normal at < 35 mmHg. The pulmonic valve was not well visualized. The aortic root size is normal. IVC Not well visulized. There is no pericardial effusion. CONCLUSIONS -------- 1. Sinus rhythm. 2. This was a technically difficult study with suboptimal views. 3. The left ventricular size is normal. 4. There is mild concentric left ventricular hypertrophy. 5. Overall left ventricular systolic function is normal with, an EF between 55 - 60 %. 6. The right ventricle is normal in size. 7. The left atrial size is normal. 8. The right atrial size is normal. 9. Lumason used 10. The aortic valve was not well visualized. 11. The mitral valve is normal. 12. Mild mitral regurgitation is present. 13. The tricuspid valve appears structurally normal. 14. Trace tricuspid regurgitation present. 15. Right ventricular systolic pressure is normal at < 35 mmHg. 16. The pulmonic valve was not well visualized. 17. The aortic root size is normal. 18. IVC Not well visulized. 19. There is no pericardial effusion. BAR WELDER: Chaya Clark RDCS
[2019-08-18] MEDS: METOPROLOL TARTRATE 50 MG TAB PO SCH (20:40)
[2019-08-18] MEDS ORDERED: ATORVASTATIN 40 MG TAB PO SCH (21:00)
[2019-08-18] MEDS: SODIUM CHLORIDE 0.9% 1,000 ML IV SCH (23:43)
--- NOTE | 2019-08-18 23:51 | P.HPIM ---
History of Present Illness H&P Date: 08/18/19 Chief Complaint: Chest pain History of presenting complaint: This is a pleasant [address] Martinez davis. Chronic stable medical conditions include coronary artery disease with prior bypass, essential hypertension, hyperlipidemia, obstructive sleep apnea, primary osteoarthritis, chronic gout, GERD, lymphoma undergoing chemotherapy by Dr. Oneal, normocytic anemia from underlying lymphoma. Patient presented after he developed what appeared to be heartburn in the anterior chest. Subsequently is still having pain between the shoulder blades. Admitted for some time. Does some shortness of breath. No dizziness. Admitted. This happened about 6 PM yesterday. Decided to come to the hospital. Initial troponin was 0.037 subsequent one was 2.5. Patient ruled in for [place]. B retired. Patient did get a little chemotherapy infusion day prior to coming in. Review of systems: GEN.: Tired EYES: None HEENT: None NECK: None RESPIRATORY: None CARDIOVASCULAR: As above GASTROINTESTINAL: None GENITOURINARY: None MUSCULOSKELETAL: Some joint pains LYMPHATICS: None HEMATOLOGICAL: None PSYCHIATRY: None NEUROLOGICAL: None Past medical history to include: Coronary artery disease with bypass, hypertension, hyperlipidemia, obstructive sleep apnea, osteoarthritis, gout, GERD, lymphoma, lower extremity venous insufficiency with varicose veins Social history: Asacol occasionally, smoked a pack a day for 30 years stopped a while ago. . Does use a cane Physical examination: VITAL SIGNS: 98.1, 100, 18, 147/87, 98% on room air GENERAL: BMI 45, laying in bed, awake. EYES: Pupils equal. Conjunctiva normal. HEENT: External appearance of nose and ears normal, oral cavity grossly normal. NECK: JVD unable to assess; masses not palpable. HEART: First and second heart sounds are normal; some edema. LUNGS: Respiratory rate normal; decreased breath sounds. ABDOMEN: Soft, nontender, liver spleen not palpable, no masses palpable. PSYCH: Alert and oriented x3; mood and affect normal. NEUROLOGICAL: Cranial nerves grossly intact; no facial asymmetry, power and sensation grossly intact. LYMPHATICS: No lymph nodes palpable in the axilla and neck INVESTIGATIONS, reviewed in the clinical context: White count 9.5 hemoglobin 12.1 potassium 3.7 bun 33 creatinine 1.10 Troponin I 0.037, 2.5, 3.5 EKG tracing personally reviewed by me shows sinus tachycardia with some ST segment changes especially in the anterolateral leads Chest x-ray film personally reviewed by me-no CHF findings Assessment: -Acute non-ST elevation myocardial infarction -Coronary artery disease a prior history of bypass -Essential hypertension -Hyperlipidemia -Obstructive sleep apnea -Primary osteoarthritis -GERD -Chronic varicose veins with insufficiency -Lymphoma being treated with chemotherapy with Dr. Oneal -Morbid obesity BMI 45 Plan: Patient started and IV heparin. Home medications resumed. Patient was taken to cardiac cath. More details cardiology notes. Decision was managed to manage the patient medically. Care was discussed with the patient and the bedside. Questions were answered. Past Medical History Past Medical History: Coronary Artery Disease (CAD), Cancer, GERD/Reflux, Hyperlipidemia, Hypertension, Myocardial Infarction ([place]), Musculoskeletal Disorder, Osteoarthritis (OA), Sleep Apnea/CPAP/BIPAP Additional Past Medical History / Comment(s): SKIN CANCER , GOUT CHRONIC BACK,SKIN LESIONS , chemo 09/18/2018 Last Myocardial Infarction Date:: MAY 2016 History of Any Multi-Drug Resistant Organisms: None Reported, MRSA Date of last positivie culture/infection: 07/22/16 MDRO Source:: LOWER LEGS Past Surgical History: Cholecystectomy, Coronary Bypass/CABG, Heart Catheterization Additional Past Surgical History / Comment(s): PICC line insertion/removed, bilateral caract removals, COLONOSCOPY, EGD, CANCEROUS SKIN LESIONS REMOVED, TOTAL RIGHT KNEE REPLACEMENT, 06-04-16 QUAD BYPASS Past Anesthesia/Blood Transfusion Reactions: Previous Problems w/ Anesthesia Additional Past Anesthesia/Blood Transfusion Reaction / Comment(s): HAD A HARD TIME COMING OUT OF ANESTHESIA AFTER CHOLECYSTECTOMY Past Psychological History: No Psychological Hx Reported Additional Psychological History / Comment(s): Pt had CABG 06/04/16 and went to [facility] for rehab. He completed rehab and came home. Spouse states he then developed a sternal wound infection/blisters on legs and went back into [facility] and was discharged to [facility] again. He has again returned home. He was ambulating without device. His spouse was driving him to [employer]. 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 Was in the [employer] and was [place]. No illnesses when he was there. No animal exposures. There is no family home with his . No extensive travels. Tobacco smoking stopped in 1988. No significant alcohol use Smoking Status: Never smoker Past Alcohol Use History: None Reported Additional Past Alcohol Use History / Comment(s): Pt quit smoking in 1988, STARTED SMOKING AT AGE 18 SMOKED 1 PPD. He denies any illicit drug use, no alcohol use. He is currently living at home with his but did go to [facility] in the past due to sternal wound infection and IV antibiotic needs. He is ambulating with a cane. 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 He was in the [employer] and [place]. No animal exposures. No extensive travels. Past Drug Use History: None Reported - Past Family History Father Family Medical History: Vascular Disorder Additional Family Medical History / Comment(s): POOR CIRCULATION-HAD AMPUTATIONS D/T POOR CIRCULATION Mother Family Medical History: Cancer Additional Family Medical History / Comment(s): STOMACH CANCER Medications and Allergies Home Medications Medication Instructions Recorded Confirmed Type Pantoprazole [Protonix] 40 mg PO DAILY 06/19/16 08/17/19 History Atorvastatin [Lipitor] 40 mg PO HS 07/21/16 08/17/19 History amLODIPine [Norvasc] 5 mg PO DAILY 07/21/16 08/17/19 History Allopurinol [Zyloprim] 300 mg PO DAILY 07/22/16 08/17/19 History Metoprolol Tartrate [Lopressor] 150 mg PO BID 10/25/16 08/17/19 History Furosemide [Lasix] 40 mg PO DAILY 01/11/17 08/17/19 History Aspirin EC [Ecotrin Low Dose] 81 mg PO DAILY 09/20/18 08/17/19 History Metolazone [Zaroxolyn] 5 mg PO DAILY 09/22/18 08/17/19 History B Complex-Vit C-Vit E-Zinc [Z-Bec] 1 tab PO DAILY 07/10/19 08/17/19 History Cholecalciferol [Vitamin D3 (25 1,000 unit PO DAILY 07/10/19 08/17/19 History Mcg = 1000 Iu)] HYDROcodone/APAP 7.5-325MG [[place] 1 tab PO TID PRN 07/10/19 08/17/19 History 7.5-325] Potassium Chloride ER [K-Dur 10] 10 meq PO DAILY 07/10/19 08/17/19 History Colchicine [Colcrys] 0.6 mg PO DAILY PRN 08/17/19 08/17/19 History Magnesium Oxide [Magox 400] 400 mg PO DAILY 08/17/19 08/17/19 History Melatonin 5 mg PO DAILY 08/17/19 08/17/19 History Turmeric Root Extract [Turmeric] 500 mg PO DAILY 08/17/19 08/17/19 History Allergies Allergy/AdvReac Type Severity Reaction Status Date / Time No Known Allergies Allergy Verified 08/17/19 22:42 Physical Exam Vitals: Vital Signs Temp Pulse Resp BP Pulse Ox 08/18/19 20:00 97.9 F 16 138/67 08/18/19 15:26 18 133/63 90 L 08/18/19 15:20 97.5 F L 18 118/54 94 L 08/18/19 14:26 18 132/60 95 08/18/19 13:26 18 141/65 94 L 08/18/19 12:56 18 134/63 95 08/18/19 12:26 18 124/60 95 08/18/19 12:11 18 138/65 95 08/18/19 11:56 18 147/66 93 L 08/18/19 11:55 97.4 F L 18 141/65 94 L 08/18/19 08:10 98.0 F 18 134/73 97 08/18/19 03:52 97.9 F 89 16 149/63 08/18/19 00:37 97.9 F 84 16 136/61 96 Intake and Output 08/18/19 08/18/19 08/19/19 14:59 22:59 06:59 Intake Total 479.59 360 Output Total 300 Balance 179.59 360 Intake: IV 150 Intake, IV Titration 89.59 Amount Heparin Sod,Pork in 0.45% 89.59 NaCl 25,000 unit In 0.45 % NaCl 1 250ml.bag @ 6.94 UNITS/KG/HR 10.01 mls/hr IV .Q24H [facility] Rx#: [id number] Oral 240 360 Output: Urine 300 Other: # Voids 1 2 # Bowel Movements 1 0 Results CBC & Chem 7: 08/17/19 20:20 08/17/19 20:20 Labs: Abnormal Lab Results - Last 24 Hours (Table) 08/18/19 08/18/19 Range/Units 02:06 08:24 Troponin I 2.530 H* 3.570 H* (0.000-0.034) ng/mL Thrombosis Risk Factor Assmnt - Choose All That Apply Each Factor Represents 1 point: Acute [place], Obesity (BMI >25) Each Risk Factor Represents 3 Points: Age 75 years or older Other congenital or acquired thrombophilia - If yes, enter type in comment: No Thrombosis Risk Factor Assessment Total Risk Factor Score: 5 Thrombosis Risk Factor Assessment Level: High Risk
[2019-08-19] MEDS: HYDROcodone/APAP 7.5-325MG 1 EACH TAB PO PRN (05:31)
[2019-08-19] MEDS: SODIUM CHLORIDE 0.9% 1,000 ML IV SCH (05:32)
[2019-08-19] MEDS: HEPARIN SOD,PORK IN 0.45% NACL 25,000 UNIT in 0.45% NACL 1 250ML.BAG IV SCH (08:55)
[2019-08-19] MEDS ORDERED: ALLOPURINOL 300 MG TAB PO SCH (09:00)
[2019-08-19] MEDS ORDERED: ASPIRIN 81 MG PO SCH (09:00)
[2019-08-19] MEDS ORDERED: MAGNESIUM OXIDE 400 MG TAB PO SCH (09:00)
[2019-08-19] MEDS ORDERED: amLODIPine 5 MG TAB PO SCH (09:00)
[2019-08-19] MEDS: METOPROLOL TARTRATE 50 MG TAB PO SCH (09:05)
[2019-08-19 11:56] VITALS: BP 145/66; PULSE 66; TEMP 97.9
[2019-08-19 12:32] VITALS: RESP 16
--- NOTE | 2019-08-19 13:02 | P.PN ---
Subjective Progress Note Date: 08/19/19 This is a 79-year-old gentleman with history of coronary artery disease and prior bypass surgery, hypertension, hyperlipidemia, chronic back pain, who presented to the hospital with symptoms of chest discomfort. His EKG showed sinus rhythm with nonspecific ST-T wave changes, had mild abnormality in troponin and for this reason Dr. Teran took him to the cardiac catheterization lab yesterday. Catheterization showed [place] 3 vessel coronary artery disease with a patent JUNE to the LAD and venous graft to the diagonal, occluded venous graft to the PDA and possible occlusion of the venous graft to the ramus. At this time patient will be managed medically, as an outpatient he'll undergo a st ress test, if it shows ischemia in the diagonal distribution, angioplasty will then be considered. Patient was seen and examined this morning, he feels well, denies any chest discomfort and is breathing overall is stable. Blood pressure 144/66, heart rate in the 60s, 95% on room air. Objective - Vital Signs Vital signs: Vital Signs Temp 97.9 F 08/19/19 11:53 Pulse 66 08/19/19 11:53 Resp 16 08/19/19 12:30 BP 145/66 08/19/19 11:53 Pulse Ox 95 08/19/19 11:53 Intake & Output 08/18/19 08/19/19 08/19/19 18:59 06:59 18:59 Intake Total 839.59 240 600 Output Total 300 Balance 539.59 240 600 Weight 144.8 kg Intake: IV 150 Intake, IV Titration 89.59 Amount Heparin Sod,Pork in 0.45% 89.59 NaCl 25,000 unit In 0.45 % NaCl 1 250ml.bag @ 6.94 UNITS/KG/HR 10.01 mls/hr IV .Q24H [facility] Rx#: [id number] Oral 600 240 600 Output: Urine 300 Other: # Voids 2 2 # Bowel Movements 0 - Exam PHYSICAL EXAMINATION: GENERAL: 79-year-old gentleman in no acute distress at the time of my examination HEENT: Head is atraumatic, normocephalic. Pupils equal, round. Sclera anicteric. Conjunctiva are clear. Mucous membranes of the mouth are moist. Neck is supple. There is no elevated jugular venous pressure. No carotid bruit is heard. HEART EXAMINATION: Heart S1, S2 normal. No murmur or gallop heard. CHEST EXAMINATION: Lungs are clear to auscultation and precussion. No chest wall tenderness is noted on palpation or with deep breathing. ABDOMEN: Soft, obese, nontender. Bowel sounds are heard. No organomegaly noted. EXTREMITIES: 2+ peripheral pulses with trace evidence of peripheral edema and no calf tenderness noted. Right groin is soft, there is no evidence of any hematoma NEUROLOGIC patient is awake, alert and oriented 3 . . - Labs CBC & Chem 7: 08/17/19 20:20 08/17/19 20:20 Assessment and Plan Plan: Assessment and plan #1 non-ST elevation myocardial infarction, status post heart catheterization which revealed an occluded venous graft to the PDA and possible occlusion of the venous graft to the ramus, medical therapy advised at this time. #2 known history of coronary artery disease with prior bypass surgery #3 hypertension #4 hyperlipidemia #5 chronic back pain Plan From cardiology's perspective, patient may be able to be discharged home today. A stress test will be performed as an outpatient, if it does reveal ischemia in the diagonal distribution, angioplasty will at that time because it. A follow- up appointment will be made in the office. DNP note has been reviewed, I agree with a documented findings and plan of care. Patient was seen and examined.
[2019-08-19] MEDS ORDERED: ISOSORBIDE MONONITRATE ER 60 MG TAB.ER.24H PO STA (13:06)
[2019-08-20] MEDS ORDERED: ISOSORBIDE MONONITRATE ER 60 MG TAB.ER.24H PO SCH (09:00)
[2019-08-20] MEDS ORDERED: amLODIPine 10 MG TAB PO SCH (09:00)
[2019-08-20] MEDS ORDERED: CLOPIDOGREL 75 MG TAB PO SCH (09:00)
--- NOTE | 2019-08-22 23:02 | P.DS ---
Providers Date of admission: 08/19/19 09:47 Expected date of discharge: 08/22/19 Attending physician: Brannon Barcenas Consults: 08/17/19 21:54 Consult Physician Urgent Consulting Provider: [facility] Consult Reason/Comments: Chest Pain; Elevated Trop Do you want consulting provider notified?: Yes [facility] Course: Chief Complaint: Chest pain History of presenting complaint: This is a pleasant [address] Martinez yoo. Chronic stable medical conditions include coronary artery disease with prior bypass, essential hypertension, hyperlipidemia, obstructive sleep apnea, primary osteoarthritis, chronic gout, GERD, lymphoma undergoing chemotherapy by Dr. Oneal, normocytic anemia from underlying lymphoma. Patient presented after he developed what appeared to be heartburn in the anterior chest. Subsequently is still having pain between the shoulder blades. some shortness of breath. No dizziness. Admitted. This happened about 6 PM yesterday. Decided to come to the hospital. Initial troponin was 0.037 subsequent one was 2.5. Patient ruled in for [facility]. Lymphoma-received chemotherapy infusion day prior to coming in. Hospital course: Patient was taken to the cardiac blood bank laboratory technician. Based on the finding decision was made to proceed with medical management. Nitrates were added. No further cardiac symptoms. Care was discussed with the patient. Consultation: Dr. Rafael Teran from cardiology Physical examination: VITAL SIGNS: 97.9-66-18-145/66-95% on room air GENERAL: Sitting up, comfortable. EYES: Pupils equal. Conjunctiva normal. HEENT: External appearance of nose and ears normal, oral cavity grossly normal. NECK: JVD unable to assess; masses not palpable. HEART: First and second heart sounds are normal; some edema. LUNGS: Respiratory rate normal; decreased breath sounds. ABDOMEN: Soft, nontender, liver spleen not palpable, no masses palpable. PSYCH: Alert and oriented x3; mood and affect normal. INVESTIGATIONS, reviewed in the clinical context: White count 9.5 hemoglobin 12.1 potassium 3.7 bun 33 creatinine 1.10 Troponin I 0.037, 2.5, 3.5 EKG tracing personally reviewed by me shows sinus tachycardia with some ST segment changes especially in the anterolateral leads Chest x-ray film personally reviewed by me-no CHF findings Cardiac catheterization. Follows Results-cardiology notes. Briefly [place] three-vessel coronary artery disease with patent JUNE to LAD and venous graft to diagonal and occluded venous graft to the PDA and ramus intermedius. Assessment: -Acute non-ST elevation myocardial infarction -Coronary artery disease a prior history of bypass -Essential hypertension -Hyperlipidemia -Obstructive sleep apnea -Primary osteoarthritis -GERD -Chronic varicose veins with insufficiency -Lymphoma being treated with chemotherapy with Dr. Oneal -Morbid obesity BMI 45 Disposition: Home Plan - Discharge Summary Discharge Rx Participant: No New Discharge Prescriptions: New Isosorbide Mononitrate ER [Imdur] 60 mg PO DAILY #30 tab Continue Pantoprazole [Protonix] 40 mg PO DAILY amLODIPine [Norvasc] 5 mg PO DAILY Atorvastatin [Lipitor] 40 mg PO HS Allopurinol [Zyloprim] 300 mg PO DAILY Metoprolol Tartrate [Lopressor] 150 mg PO BID Furosemide [Lasix] 40 mg PO DAILY Aspirin EC [Ecotrin Low Dose] 81 mg PO DAILY Potassium Chloride ER [K-Dur 10] 10 meq PO DAILY B Complex-Vit C-Vit E-Zinc [Z-Bec] 1 tab PO DAILY Cholecalciferol [Vitamin D3 (25 Mcg = 1000 Iu)] 1,000 unit PO DAILY HYDROcodone/APAP 7.5-325MG [[place] 7.5-325] 1 tab PO TID PRN PRN Reason: Pain Melatonin 5 mg PO DAILY Colchicine [Colcrys] 0.6 mg PO DAILY PRN PRN Reason: GOUT Magnesium Oxide [Magox 400] 400 mg PO DAILY Discontinued Metolazone [Zaroxolyn] 5 mg PO DAILY No Action Turmeric Root Extract [Turmeric] 500 mg PO DAILY Discharge Medication List Pantoprazole [Protonix] 40 mg PO DAILY 06/19/16 [History] Atorvastatin [Lipitor] 40 mg PO HS 07/21/16 [History] amLODIPine [Norvasc] 5 mg PO DAILY 07/21/16 [History] Allopurinol [Zyloprim] 300 mg PO DAILY 07/22/16 [History] Metoprolol Tartrate [Lopressor] 150 mg PO BID 10/25/16 [History] Furosemide [Lasix] 40 mg PO DAILY 01/11/17 [History] Aspirin EC [Ecotrin Low Dose] 81 mg PO DAILY 09/20/18 [History] B Complex-Vit C-Vit E-Zinc [Z-Bec] 1 tab PO DAILY 07/10/19 [History] Cholecalciferol [Vitamin D3 (25 Mcg = 1000 Iu)] 1,000 unit PO DAILY 07/10/19 [History] HYDROcodone/APAP 7.5-325MG [[place] 7.5-325] 1 tab PO TID PRN 07/10/19 [History] Potassium Chloride ER [K-Dur 10] 10 meq PO DAILY 07/10/19 [History] Colchicine [Colcrys] 0.6 mg PO DAILY PRN 08/17/19 [History] Magnesium Oxide [Magox 400] 400 mg PO DAILY 08/17/19 [History] Melatonin 5 mg PO DAILY 08/17/19 [History] Turmeric Root Extract [Turmeric] 500 mg PO DAILY 08/17/19 [History] Isosorbide Mononitrate ER [Imdur] 60 mg PO DAILY #30 tab 08/19/19 [Rx] Follow up Appointment(s)/Referral(s): Rehab [facility],Cardiac [NON-STAFF] - (Your refrigeration engine operator will clear you for cardiac rehab when appropriate.) Martinez Yoo MD [Primary Care Provider] - 08/25/19 11:00 am Piotr Teran MD [STAFF PHYSICIAN] - 08/25/19 3:15 pm Patient Instructions/Handouts: *Surgery [facility] - After Heart Catheterization - [place] Cutter Helper Instructions, Heart Healthy Diet (DC) Activity/Diet/Wound Care/Special Instructions: CARDIAC CATH 1. Support your puncture site by applying firm, steady pressure whenever you cough, laugh, sneeze or bear down to have a bowel movement (2-day restriction). 2. Watch for any excessive bruising, active bleeding, a firm knot forming under your skin, extreme tenderness and signs of infection (redness, swelling, fever). 3. Shower daily, do not soak puncture in a tub bath, jacuzzi, pool, peralta etc. for 1 week. This is to prevent risk of infection. 4. Drink plenty of fluids the day of and day after your procedure to flush contrast dye out of your kidneys. 5. Take all medications as directed. Never stop any new medication without your physicians OK. 6. No driving for 2 days after procedure. 7. 10- pound weight lifting restriction for 1 week. 8. Low sodium/low fat diet. 9. Activity limited until follow up appointment with your refrigeration engine operator. In case of any problems, please call [facility] [place] @ [phone]. Discharge Disposition: HOME SELF-CARE
== END 2019-08-19 14:03 | disposition home or self-care (01) | DRG 281 ==
LOC: EC 19:37 → 3SCARD 21:50 → OBSVTOIN 08-19 09:47
PROVIDERS: ADMIT Hospitalist; ATTEND Hospitalist
PROC: B2111ZZ Fluoroscopy of Multiple Coronary Arteries using Low Osmolar Contrast (ICD-10-PCS; principal; 2019-08-18 10:45)
PROC: 4A023N7 Measurement of Cardiac Sampling and Pressure, Left Heart, Percutaneous Approach (ICD-10-PCS; principal; 2019-08-18 10:45)
PROC: B2131ZZ Fluoroscopy of Multiple Coronary Artery Bypass Grafts using Low Osmolar Contrast (ICD-10-PCS; principal; 2019-08-18 10:45)
DX: I21.4 Non-ST elevation (NSTEMI) myocardial infarction (principal); I25.810 Atherosclerosis of coronary artery bypass graft(s) without angina pectoris; C85.90 Non-Hodgkin lymphoma, unspecified, unspecified site; Z68.42 Body mass index [BMI] 45.0-49.9, adult; I10 Essential (primary) hypertension; Z95.1 Presence of aortocoronary bypass graft; E66.01 Morbid (severe) obesity due to excess calories; E78.5 Hyperlipidemia, unspecified; G47.33 Obstructive sleep apnea (adult) (pediatric); G89.29 Other chronic pain; I25.10 Atherosclerotic heart disease of native coronary artery without angina pectoris; I25.2 Old myocardial infarction; I83.90 Asymptomatic varicose veins of unspecified lower extremity; K21.9 Gastro-esophageal reflux disease without esophagitis; M19.91 Primary osteoarthritis, unspecified site; M1A.9XX0 Chronic gout, unspecified, without tophus (tophi); Z79.82 Long term (current) use of aspirin; Z79.899 Other long term (current) drug therapy; Z80.0 Family history of malignant neoplasm of digestive organs; Z85.828 Personal history of other malignant neoplasm of skin; Z87.891 Personal history of nicotine dependence; Z96.651 Presence of right artificial knee joint
CPT/HCPCS: 36415; 71046; 80053; 80061; 81003; 83690; 83735; 84484; 85025; 85610; 85730; 93005; 93306; 93459; 93567; 96361; 96365; 96366; 96368; 96376; 99285

== ENCOUNTER 2019-08-29 04:15 | Inpatient (IN) | payer MEDICARE ==
[2019-08-29] MEDS ORDERED: ASPIRIN 81 MG PO STA (04:24)
[2019-08-29] MEDS ORDERED: NITROGLYCERIN OINT 1 INCH/GM PACKET TOPICAL STA (04:24)
--- NOTE | 2019-08-29 04:29 | ED ---
SOB HPI - General Chief Complaint: Shortness of Breath Stated Complaint: SOB Time Seen by Provider: 08/29/19 04:23 Source: patient, EMS Mode of arrival: EMS Limitations: no limitations - History of Present Illness Initial Comments: Bobby is a 79-year-old male who presents to the emergency department today for evaluation of chest pressure and shortness of breath. Patient was seen and admitted to the hospital recently for an instant me, it a cardiac ca theterization which revealed possible lesion in the CABG however he was not stented and plan was to have an outpatient stress test. Patient reports that tonight he was at home resting when he developed some pressure in his chest and shortness of breath, this prompted his to call 911. EMS reports that the patient received aspirin and nitro had some improvement in the pressure in his chest and shortness of breath with the nitro. Patient was hemodynamically stable upon arrival to the emergency department. - Related Data Home Medications Medication Instructions Recorded Confirmed Pantoprazole [Protonix] 40 mg PO DAILY 06/19/16 08/17/19 Atorvastatin [Lipitor] 40 mg PO HS 07/21/16 08/17/19 amLODIPine [Norvasc] 5 mg PO DAILY 07/21/16 08/17/19 Allopurinol [Zyloprim] 300 mg PO DAILY 07/22/16 08/17/19 Metoprolol Tartrate [Lopressor] 150 mg PO BID 10/25/16 08/17/19 Furosemide [Lasix] 40 mg PO DAILY 01/11/17 08/17/19 Aspirin EC [Ecotrin Low Dose] 81 mg PO DAILY 09/20/18 08/17/19 B Complex-Vit C-Vit E-Zinc [Z-Bec] 1 tab PO DAILY 07/10/19 08/17/19 Cholecalciferol [Vitamin D3 (25 1,000 unit PO DAILY 07/10/19 08/17/19 Mcg = 1000 Iu)] HYDROcodone/APAP 7.5-325MG [[place] 1 tab PO TID PRN 07/10/19 08/17/19 7.5-325] Potassium Chloride ER [K-Dur 10] 10 meq PO DAILY 07/10/19 08/17/19 Colchicine [Colcrys] 0.6 mg PO DAILY PRN 08/17/19 08/17/19 Magnesium Oxide [Magox 400] 400 mg PO DAILY 08/17/19 08/17/19 Melatonin 5 mg PO DAILY 08/17/19 08/17/19 Turmeric Root Extract [Turmeric] 500 mg PO DAILY 08/17/19 08/17/19 Previous Rx's Medication Instructions Recorded Isosorbide Mononitrate ER [Imdur] 60 mg PO DAILY #30 tab 08/19/19 Allergies Allergy/AdvReac Type Severity Reaction Status Date / Time No Known Allergies Allergy Verified 08/17/19 22:42 Review of Systems ROS Statement: Those systems with pertinent positive or pertinent negative responses have been documented in the HPI. ROS Other: All systems not noted in ROS Statement are negative. Past Medical History Past Medical History: Coronary Artery Disease (CAD), Cancer, GERD/Reflux, Hyperlipidemia, Hypertension, Myocardial Infarction ([place]), Musculoskeletal Disorder, Osteoarthritis (OA), Sleep Apnea/CPAP/BIPAP Additional Past Medical History / Comment(s): SKIN CANCER , GOUT CHRONIC BACK,SKIN LESIONS , chemo 09/18/2018 Last Myocardial Infarction Date:: MAY 2016 History of Any Multi-Drug Resistant Organisms: None Reported, MRSA Date of last positivie culture/infection: 07/22/16 MDRO Source:: LOWER LEGS Past Surgical History: Cholecystectomy, Coronary Bypass/CABG, Heart Catheterization Additional Past Surgical History / Comment(s): PICC line insertion/removed, bilateral caract removals, COLONOSCOPY, EGD, CANCEROUS SKIN LESIONS REMOVED, TOTAL RIGHT KNEE REPLACEMENT, 06-04-16 QUAD BYPASS Past Anesthesia/Blood Transfusion Reactions: Previous Problems w/ Anesthesia Additional Past Anesthesia/Blood Transfusion Reaction / Comment(s): HAD A HARD TIME COMING OUT OF ANESTHESIA AFTER CHOLECYSTECTOMY Past Psychological History: No Psychological Hx Reported Smoking Status: Never smoker Past Alcohol Use History: None Reported Past Drug Use History: None Reported - Past Family History Father Family Medical History: Vascular Disorder Additional Family Medical History / Comment(s): POOR CIRCULATION-HAD AMPUTATIONS D/T POOR CIRCULATION Mother Family Medical History: Cancer Additional Family Medical History / Comment(s): STOMACH CANCER General Exam - General Exam Comments Initial Comments: Physical Exam GENERAL: Elderly gentleman, appears uncomfortable HENT: Normocephalic, Atraumatic. EYES: PERRL, EOMI PULMONARY: Unlabored respirations. No audible rales rhonchi or wheezing was noted. CARDIOVASCULAR: There is a regular rate and rhythm without any murmurs gallops or rubs. ABDOMEN: Soft and nontender with normal bowel sounds. SKIN: Skin is clear with no lesions or rashes and otherwise unremarkable. : Deferred NEUROLOGIC: Patient is alert and oriented x3. Moving all extremities spontaneously MUSCULOSKELETAL: Normal extremities with adequate strength and full range of motion. No lower extremity swelling or edema. No calf tenderness. PSYCHIATRIC: Normal psychiatric evaluation. Limitations: no limitations Course Vital Signs 08/29/19 08/29/19 04:17 04:23 Temperature 98.1 F Pulse Rate 67 Respiratory 20 20 Rate Blood Pressure 136/53 Medical Decision Making - Medical Decision Making The patient was seen and evaluated, history is obtained from patient and review of medical record extensively 9-year-old gentleman known coronary artery disease presenting to the ER today with chest pressure or shortness of breath approximately 2 weeks after an incident me for which she had a catheterization without intervention. has known coronary artery disease. Labs and imaging were obtained Labs resulted with mildl alkalemia and other acute abnormalities no elevation of the troponin X-rays no acute findings Considering the patient's advanced age, known coronary artery disease, no possible occlusion, EKG changes with ST depressions and symptoms of chest pre ssure and shortness of breath I do feel the patient warrants admission to the hospital for further evaluation by cardiology. Patient is in agreement with this plan. Patient care was discussed with Dr. Dixon who agrees with plan for admission with consult to cardiology. - Lab Data Result diagrams: 08/29/19 04:46 08/29/19 04:46 Lab Results 08/29/19 08/29/19 08/29/19 Range/Units 04:46 04:46 04:46 WBC 15.0 H (3.8-10.6) k/uL RBC 3.57 L (4.30-5.90) m/uL Hgb 11.8 L (13.0-17.5) gm/dL Hct 35.0 L (39.0-53.0) % MCV 97.9 (80.0-100.0) fL MCH 33.0 (25.0-35.0) pg MCHC 33.7 (31.0-37.0) g/dL RDW 14.9 (11.5-15.5) % Plt Count 284 (150-450) k/uL Neutrophils % 82 % Lymphocytes % 9 % Monocytes % 5 % Eosinophils % 1 % Basophils % 1 % Neutrophils # 12.3 H (1.3-7.7) k/uL Lymphocytes # 1.3 (1.0-4.8) k/uL Monocytes # 0.8 (0-1.0) k/uL Eosinophils # 0.2 (0-0.7) k/uL Basophils # 0.1 (0-0.2) k/uL Poikilocytosis Slight PT (9.0-12.0) sec INR (<1.2) APTT (22.0-30.0) sec Sodium 136 L (137-145) mmol/L Potassium 3.1 L (3.5-5.1) mmol/L Chloride 95 L (98-107) mmol/L Carbon Dioxide 30 (22-30) mmol/L Anion Gap 11 mmol/L BUN 35 H (9-20) mg/dL Creatinine 1.29 H (0.66-1.25) mg/dL Est GFR (CKD-EPI)AfAm 62 (>60 ml/min/1.73 sqM) Est GFR (CKD-EPI)NonAf 53 (>60 ml/min/1.73 sqM) Glucose 159 H (74-99) mg/dL Calcium 9.0 (8.4-10.2) mg/dL Magnesium 1.7 (1.6-2.3) mg/dL Total Bilirubin 0.6 (0.2-1.3) mg/dL AST 33 (17-59) U/L ALT 25 (4-49) U/L Alkaline Phosphatase 88 (38-126) U/L Troponin I (0.000-0.034) ng/mL NT-Pro-B Natriuret Pep 879 pg/mL Total Protein 6.9 (6.3-8.2) g/dL Albumin 4.2 (3.5-5.0) g/dL 08/29/19 08/29/19 Range/Units 04:46 04:46 WBC (3.8-10.6) k/uL RBC (4.30-5.90) m/uL Hgb (13.0-17.5) gm/dL Hct (39.0-53.0) % MCV (80.0-100.0) fL MCH (25.0-35.0) pg MCHC (31.0-37.0) g/dL RDW (11.5-15.5) % Plt Count (150-450) k/uL Neutrophils % % Lymphocytes % % Monocytes % % Eosinophils % % Basophils % % Neutrophils # (1.3-7.7) k/uL Lymphocytes # (1.0-4.8) k/uL Monocytes # (0-1.0) k/uL Eosinophils # (0-0.7) k/uL Basophils # (0-0.2) k/uL Poikilocytosis PT 9.7 (9.0-12.0) sec INR 0.9 (<1.2) APTT 39.2 H (22.0-30.0) sec Sodium (137-145) mmol/L Potassium (3.5-5.1) mmol/L Chloride (98-107) mmol/L Carbon Dioxide (22-30) mmol/L Anion Gap mmol/L BUN (9-20) mg/dL Creatinine (0.66-1.25) mg/dL Est GFR (CKD-EPI)AfAm (>60 ml/min/1.73 sqM) Est GFR (CKD-EPI)NonAf (>60 ml/min/1.73 sqM) Glucose (74-99) mg/dL Calcium (8.4-10.2) mg/dL Magnesium (1.6-2.3) mg/dL Total Bilirubin (0.2-1.3) mg/dL AST (17-59) U/L ALT (4-49) U/L Alkaline Phosphatase (38-126) U/L Troponin I 0.014 (0.000-0.034) ng/mL NT-Pro-B Natriuret Pep pg/mL Total Protein (6.3-8.2) g/dL Albumin (3.5-5.0) g/dL - EKG Data -: EKG Interpreted by Me EKG Comments: EKG was obtained due to complaint of chest pressure and recent acute cardiac event, EKG was obtained at 4:21 AM, rate 74 room is sinus with sinus arrhythmia, normal axis, normal intervals, UT 176, QRS 98, QTC is [address] elevations, mild ST depressions in lead V2 and V3, when this EKG was compared to EKG obtained last week no significant change in morphology. Disposition Clinical Impression: Unstable angina Disposition: ADMITTED IP TO THIS HOSP Condition: Serious Referrals: Martinez Yoo MD [Primary Care Provider] - 1-2 days
[2019-08-29 04:58] LABS: Basophils # (A) 0.1 k/uL (0-0.2); Basophils % (A) 1 %; Eosinophils # (A) 0.2 k/uL (0-0.7); Eosinophils % (A) 1 %; HGB 11.8 gm/dL (13.0-17.5); Lymphocytes # (A) 1.3 k/uL (1.0-4.8); Lymphocytes % (A) 9 %; MCHC 33.7 g/dL (31.0-37.0); MCV 97.9 fL (80.0-100.0); Mean Platelet Volume 7.6; Monocytes # (A) 0.8 k/uL (0-1.0); Monocytes % (A) 5 %; Neutrophils # (A) 12.3 k/uL (1.3-7.7); Neutrophils % (A) 82 %; Platelet Count 284 k/uL (150-450); Poikilocytosis Slight; RBC 3.57 m/uL (4.30-5.90); RDW 14.9 % (11.5-15.5)
[2019-08-29 05:06] LABS: INR 0.9 (<1.2); Partial Thromboplastin Time 39.2 sec (22.0-30.0); Prothrombin Time 9.7 sec (9.0-12.0)
--- NOTE | 2019-08-29 05:06 | XR ---
EXAMINATION TYPE: XR chest 2V DATE OF EXAM: 08/29/2019 COMPARISON: 08/17/2019 HISTORY: Chest pain TECHNIQUE: 2 views FINDINGS: There is no heart failure nor confluent pneumonic infiltrate. Costophrenic angles are clear . There is a left side central venous catheter with tip in the superior vena cava. There is no pleural effusion. IMPRESSION: No active cardiopulmonary disease. There is clearing of the atelectasis right lung base t o large extent compared to last exam.
[2019-08-29 05:08] LABS: Albumin 4.2 g/dL (3.5-5.0); Magnesium 1.7 mg/dL (1.6-2.3); Potassium 3.1 mmol/L (3.5-5.1); Total Bilirubin 0.6 mg/dL (0.2-1.3); Total Protein 6.9 g/dL (6.3-8.2)
[2019-08-29] MEDS ORDERED: Potassium Replacement Protocol 1 EACH MISC MISCELLANE PRN (05:47)
[2019-08-29] MEDS: POTASSIUM CHLORIDE ER 20 MEQ TAB.ER PO SCH ×2 (06:09→08:09)
[2019-08-29] MEDS ORDERED: NITROGLYCERIN SL TABS 0.4 MG TAB SUBLINGUAL PRN (06:39)
[2019-08-29] MEDS ORDERED: KETOROLAC 30 MG/ML 1 ML VIAL IVP STA (09:30)
[2019-08-29] MEDS ORDERED: SODIUM CHLORIDE 0.9% 1,000 ML IV STA (09:30)
--- NOTE | 2019-08-29 09:48 | P.CRDCN ---
History of Present Illness History of present illness: HISTORY OF PRESENTING ILLNESS This is a pleasant 79-year-old male past medical history significant for coronary artery disease status post bypass grafting, recent myocardial infarction, hypertension, dyslipidemia, obstructive sleep apnea, morbid obesity and chronic back pain. He follows in the office with Dr. Teran. We have been asked to see in consultation for chest pain. He was recently admitted to the hospital with a non-ST elevated myocardial infarction underwent cardiac catheterization revealing [place] 3 vessel CAD with a patent JUNE to LAD and a patent SVG to diagonal, occluded SVG to PDA and occluded SVG to ramus. SVG to diagonal did have a 60-70% stenosis in the midportion. At that time maximum medical therapy was recommended and he is scheduled for a stress test in the office next week. However, last night around 2:00 in the morning he woke up with a pressure sensation in the midsternal region. This was associated with shortness of breath. The symptoms persisted for approximately 2 hours with no specific aggravating or alleviating factor prompting him to call EMS. He did take a full dose aspirin and upon arrival EMS gave sublingual nitroglycerin. By the time he arrived at the emergency department his pain had completely resolved. He is seen and examined sitting up in the chair in no acute distress. He does have chronic low back pain for which she is following with Dr. Kirby. DIAGNOSTICS EKG reveals sinus mechanism heart rate 74, nonspecific T wave abnormalities noted. Chest xray negative for an acute cardiopulmonary process with clearing of right lung atelectasis. Laboratory reviewed, WBC 15, hemoglobin 11.8, platelets 284, sodium 136, potassium 3.1, creatinine 1.29 with a GFR of 53, magnesium 1.7, cardiac enzymes negative 1, NT proBNP 879. Current cardiac medications include atorvastatin 40 mg daily, amlodipine 5 mg daily, Lopressor 150 mg twice a day, Lasix 40 mg daily, aspirin 81 mg daily, daily potassium supplementation and Imdur 60 mg. Most recent echocardiogram obtained earlier this month reveals preserved LV syst olic function with ejection fraction 55-60%. REVIEW OF SYSTEMS At the time of my exam: CONSTITUTIONAL: Denies fever or chills. CARDIOVASCULAR: Denies chest pain, shortness of breath, orthopnea, PND or palpitations. RESPIRATORY: Denies cough. GASTROINTESTINAL: Denies abdominal pain, diarrhea, constipation, nausea or vomiting. MUSCULOSKELETAL: Denies myalgias. NEUROLOGIC: Denies numbness, tingling or weakness. ENDOCRINE: Denies fatigue, weight change, polydipsia or polyurina. GENITOURINARY: Denies burning, hematuria or urgency with micturation. HEMATOLOGIC: Denies history of anemia or bleeding. PHYSICAL EXAMINATION Blood pressure 139/74 heart rate 80 afebrile and maintaining oxygen saturation on room air. CONSTITUTIONAL: No apparent distress. HEENT: Head is normocephalic. Pupils are equal, round. Sclerae anicteric. Mucous membranes of the mouth are moist. No JVD. No carotid bruit. CHEST EXAMINATION: Lungs are clear to auscultation. No chest wall tenderness is noted on palpation or with deep breathing. HEART EXAMINATION: Regular rate and rhythm. S1, S2 heard. No murmurs, gallops or rub. ABDOMEN: Soft, nontender. Positive bowel sounds. EXTREMITIES: 2+ peripheral pulses, no lower extremity edema and no calf tenderness. NEUROLOGIC EXAMINATION: Patient is awake, alert and oriented x3. ASSESSMENT Chest pain, atypical. Hypokalemia Recent myocardial infarction, maximum medical therapy recommended. History of coronary artery disease status post bypass grafting Hypertension Dyslipidemia Chronic low back pain follows with Dr. Kirby Obstructive sleep apnea Morbid obesity, BMI 43 PLAN Continue to obtain serial cardiac enzymes to rule out an acute event. Resume aspirin, atorvastatin, Lopressor, amlodipine and potassium. Give 1 dose of Toradol for chronic low back discomfort. Hydrate with 0.9 normal saline at 75 mL per hour. Will consider stress testing tomorrow if his back discomfort can tolerate and an acute event has been ruled out. Thank you kindly for this consultation. Nurse Practitioner note has been reviewed, I agree with a documented findings and plan of care. Patient was seen and examined. Past Medical History Past Medical History: Coronary Artery Disease (CAD), Cancer, GERD/Reflux, Hyperlipidemia, Hypertension, Myocardial Infarction ([place]), Musculoskeletal Disorder, Osteoarthritis (OA), Sleep Apnea/CPAP/BIPAP Additional Past Medical History / Comment(s): SKIN CANCER , GOUT CHRONIC B ACK,SKIN LESIONS , chemo 09/18/2018, NSTEMI 08/18/2019- with heart caht no stents placed at that time. Last Myocardial Infarction Date:: MAY 2016 History of Any Multi-Drug Resistant Organisms: None Reported, MRSA Date of last positivie culture/infection: 07/22/16 MDRO Source:: LOWER LEGS Past Surgical History: Cholecystectomy, Coronary Bypass/CABG, Heart Catheterization Additional Past Surgical History / Comment(s): PICC line insertion/removed, bila teral caract removals, COLONOSCOPY, EGD, CANCEROUS SKIN LESIONS REMOVED, TOTAL RIGHT KNEE REPLACEMENT, 06-04-16 QUAD BYPASS Past Anesthesia/Blood Transfusion Reactions: Previous Problems w/ Anesthesia Additional Past Anesthesia/Blood Transfusion Reaction / Comment(s): HAD A HARD TIME COMING OUT OF ANESTHESIA AFTER CHOLECYSTECTOMY Past Psychological History: No Psychological Hx Reported Additional Psychological History / Comment(s): Pt had CABG 06/04/16 and went to [facility] for rehab. He completed rehab and came home. Spouse states he then developed a sternal wound infection/blisters on legs and went back into [facility] and was discharged to [facility] again. He has again returned home. He was ambulating without device. His spouse was driving him to [employer]. 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 Was in the [employer] and was [place]. No illnesses when he was there. No animal exposures. There is no family home with his . No extensive travels. Tobacco smoking stopped in 1988. No significant alcohol use Smoking Status: Never smoker Past Alcohol Use History: None Reported Additional Past Alcohol Use History / Comment(s): Pt quit smoking in 1988, STARTED SMOKING AT AGE 18 SMOKED 1 PPD. He denies any illicit drug use, no alcohol use. He is currently living at home with his but did go to [facility] in the past due to sternal wound infection and IV antibiotic needs. He is ambulating with a cane. 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 He was in [place] [employer] and [place] No animal exposures. No extensive travels. Past Drug Use History: None Reported - Past Family History Father Family Medical History: Vascular Disorder Additional Family Medical History / Comment(s): POOR CIRCULATION-HAD AMPUTATIONS D/T POOR CIRCULATION Mother Family Medical History: Cancer Additional Family Medical History / Comment(s): STOMACH CANCER Medications and Allergies Home Medications Medication Instructions Recorded Confirmed Type Pantoprazole [Protonix] 40 mg PO DAILY 06/19/16 08/17/19 History Atorvastatin [Lipitor] 40 mg PO HS 07/21/16 08/17/19 History amLODIPine [Norvasc] 5 mg PO DAILY 07/21/16 08/17/19 History Allopurinol [Zyloprim] 300 mg PO DAILY 07/22/16 08/17/19 History Metoprolol Tartrate [Lopressor] 150 mg PO BID 10/25/16 08/17/19 History Furosemide [Lasix] 40 mg PO DAILY 01/11/17 08/17/19 History Aspirin EC [Ecotrin Low Dose] 81 mg PO DAILY 09/20/18 08/17/19 History B Complex-Vit C-Vit E-Zinc [Z-Bec] 1 tab PO DAILY 07/10/19 08/17/19 History Cholecalciferol [Vitamin D3 (25 1,000 unit PO DAILY 07/10/19 08/17/19 History Mcg = 1000 Iu)] HYDROcodone/APAP 7.5-325MG [[place] 1 tab PO TID PRN 07/10/19 08/17/19 History 7.5-325] Potassium Chloride ER [K-Dur 10] 10 meq PO DAILY 07/10/19 08/17/19 History Colchicine [Colcrys] 0.6 mg PO DAILY PRN 08/17/19 08/17/19 History Magnesium Oxide [Magox 400] 400 mg PO DAILY 08/17/19 08/17/19 History Melatonin 5 mg PO DAILY 08/17/19 08/17/19 History Turmeric Root Extract [Turmeric] 500 mg PO DAILY 08/17/19 08/17/19 History Isosorbide Mononitrate ER [Imdur] 60 mg PO DAILY #30 tab 08/19/19 Rx Allergies Allergy/AdvReac Type Severity Reaction Status Date / Time No Known Allergies Allergy Verified 08/17/19 22:42 Physical Exam Vitals: Vital Signs Temp Pulse Pulse Resp BP BP Pulse Ox 08/29/19 07:15 97.5 F L 80 18 139/74 96 08/29/19 06:30 70 18 138/64 98 08/29/19 06:00 60 18 171/83 96 08/29/19 05:30 73 18 164/57 96 08/29/19 05:00 66 18 147/64 97 08/29/19 04:30 73 18 136/53 98 08/29/19 04:23 20 08/29/19 04:17 98.1 F 67 20 136/53 Intake and Output 08/28/19 08/29/19 08/29/19 22:59 06:59 14:59 Other: Weight 139.706 kg 139.706 kg Results 08/29/19 04:46 08/29/19 04:46 Cardiac Enzymes 08/29/19 08/29/19 Range/Units 04:46 04:46 AST 33 (17-59) U/L Troponin I 0.014 (0.000-0.034) ng/mL Coagulation 08/29/19 Range/Units 04:46 PT 9.7 (9.0-12.0) sec APTT 39.2 H (22.0-30.0) sec CBC 08/29/19 Range/Units 04:46 WBC 15.0 H (3.8-10.6) k/uL RBC 3.57 L (4.30-5.90) m/uL Hgb 11.8 L (13.0-17.5) gm/dL Hct 35.0 L (39.0-53.0) % Plt Count 284 (150-450) k/uL Comprehensive Metabolic Panel 08/29/19 Range/Units 04:46 Sodium 136 L (137-145) mmol/L Potassium 3.1 L (3.5-5.1) mmol/L Chloride 95 L (98-107) mmol/L Carbon Dioxide 30 (22-30) mmol/L BUN 35 H (9-20) mg/dL Creatinine 1.29 H (0.66-1.25) mg/dL Glucose 159 H (74-99) mg/dL Calcium 9.0 (8.4-10.2) mg/dL AST 33 (17-59) U/L ALT 25 (4-49) U/L Alkaline Phosphatase 88 (38-126) U/L Total Protein 6.9 (6.3-8.2) g/dL Albumin 4.2 (3.5-5.0) g/dL Current Medications Generic Name Dose Route Start Last Admin Trade Name Freq PRN Reason Stop Dose Admin Aspirin 325 mg 08/30/19 09:00 Aspirin PO DAILY JONY Miscellaneous Information 1 each 08/29/19 05:47 Potassium Per Protocol MISCELLANE DAILY PRN Per Protocol Protocol Nitroglycerin 0.4 mg 08/29/19 06:39 Nitrostat SUBLINGUAL Q5M PRN Chest Pain Intake and Output 08/28/19 08/29/19 08/29/19 22:59 06:59 14:59 Other: Weight 139.706 kg 139.706 kg Patient Weight 08/30/19 06:59 Weight 139.706 kg 08/29/19 04:46 08/29/19 04:46
--- NOTE | 2019-08-29 10:16 | P.HPIM ---
History of Present Illness H&P Date: 08/29/19 The patient is a 79-year-old male with a PMH of coronary artery disease status post CABG, multiple recent hospitalizations with a recent [place] (on optimal medical therapy), hypertension, hyperlipidemia, obstructive sleep apnea, and chronic lower back pain presented to the ED was an onset of substernal pressure-like chest discomfort which started earlier this morning at 2 AM. The patient reports it was 5 out of 10, nonradiating, with associated shortness of breath. The patient's subsequently activated EMS and the patient was brought to the emergency room. The patient did report improvement in his pain after taking aspirin on his way to the hospital and resolved within 2-3 hours. At time of interview, reports no further chest discomfort and is denying shortness of breath, nausea, vomiting, diaphoresis, or dizziness. The patient also denied cough, fever, chills, or diarrhea. The patient underwent an extensive evaluation in the emergency room. Vitals upon presentation were T 98.1, BP 136/53, P 67, SpO2 98% on 2L NC and RR 20. Chest x-ray revealed no acute abnormalities. EKG revealed sinus rhythm at 74 bpm with diffuse T-wave flattening and sinus arrhythmia. Laboratory evaluation revealed a troponin of 0.014, BUN 35, creatinine 1.29, potassium 3.1, BNP 879, WBC count 15, hemoglobin 11.8, and platelets 284. Review of Systems Pertinent positives and negatives as discussed in HPI, a complete review of systems was performed and all other systems are negative. Past Medical History Past Medical History: Coronary Artery Disease (CAD), Cancer, GERD/Reflux, Hyperlipidemia, Hypertension, Myocardial Infarction ([place]), Musculoskeletal Disorder, Osteoarthritis (OA), Sleep Apnea/CPAP/BIPAP Additional Past Medical History / Comment(s): SKIN CANCER , GOUT CHRONIC BACK,SKIN LESIONS , chemo 09/18/2018, NSTEMI 08/18/2019- with heart caht no stents placed at that time. Last Myocardial Infarction Date:: MAY 2016 History of Any Multi-Drug Resistant Organisms: None Reported, MRSA Date of last positivie culture/infection: 07/22/16 MDRO Source:: LOWER LEGS Past Surgical History: Cholecystectomy, Coronary Bypass/CABG, Heart Catheterization Additional Past Surgical History / Comment(s): PICC line insertion/removed, bilateral caract removals, COLONOSCOPY, EGD, CANCEROUS SKIN LESIONS REMOVED, TOTAL RIGHT KNEE REPLACEMENT, 06-04-16 QUAD BYPASS Past Anesthesia/Blood Transfusion Reactions: Previous Problems w/ Anesthesia Additional Past Anesthesia/Blood Transfusion Reaction / Comment(s): HAD A HARD TIME COMING OUT OF ANESTHESIA AFTER CHOLECYSTECTOMY Past Psychological History: No Psychological Hx Reported Additional Psychological History / Comment(s): Pt had CABG 06/04/16 and went to [facility] for rehab. He completed rehab and came home. Spouse states he then developed a sternal wound infection/blisters on legs and went back into [facility] and was discharged to [facility] again. He has again returned home. He was ambulating without device. His spouse was driving him to [place]. 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 Was in the [employer] and was [place]. No illnesses when he was there. No animal exposures. There is no family home with his . No extensive travels. Tobacco smoking stopped in 1988. No significant alcohol use Smoking Status: Never smoker Past Alcohol Use History: None Reported Additional Past Alcohol Use History / Comment(s): Pt quit smoking in 1988, STARTED SMOKING AT AGE 18 SMOKED 1 PPD. He denies any illicit drug use, no alcohol use. He is currently living at home with his but did go to [facility] in the past due to sternal wound infection and IV antibiotic needs. He is ambulating with a cane. 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 He was in the [employer] and [place] No animal exposures. No extensive travels. Past Drug Use History: None Reported - Past Family History Father Family Medical History: Vascular Disorder Additional Family Medical History / Comment(s): POOR CIRCULATION-HAD AMPUTATIONS D/T POOR CIRCULATION Mother Family Medical History: Cancer Additional Family Medical History / Comment(s): STOMACH CANCER Medications and Allergies Home Medications Medication Instructions Recorded Confirmed Type Pantoprazole [Protonix] 40 mg PO DAILY 06/19/16 08/17/19 History Atorvastatin [Lipitor] 40 mg PO HS 07/21/16 08/17/19 History amLODIPine [Norvasc] 5 mg PO DAILY 07/21/16 08/17/19 History Allopurinol [Zyloprim] 300 mg PO DAILY 07/22/16 08/17/19 History Metoprolol Tartrate [Lopressor] 150 mg PO BID 10/25/16 08/17/19 History Furosemide [Lasix] 40 mg PO DAILY 01/11/17 08/17/19 History Aspirin EC [Ecotrin Low Dose] 81 mg PO DAILY 09/20/18 08/17/19 History B Complex-Vit C-Vit E-Zinc [Z-Bec] 1 tab PO DAILY 07/10/19 08/17/19 History Cholecalciferol [Vitamin D3 (25 1,000 unit PO DAILY 07/10/19 08/17/19 History Mcg = 1000 Iu)] HYDROcodone/APAP 7.5-325MG [[place] 1 tab PO TID PRN 07/10/19 08/17/19 History 7.5-325] Potassium Chloride ER [K-Dur 10] 10 meq PO DAILY 07/10/19 08/17/19 History Colchicine [Colcrys] 0.6 mg PO DAILY PRN 08/17/19 08/17/19 History Magnesium Oxide [Magox 400] 400 mg PO DAILY 08/17/19 08/17/19 History Melatonin 5 mg PO DAILY 08/17/19 08/17/19 History Turmeric Root Extract [Turmeric] 500 mg PO DAILY 08/17/19 08/17/19 History Isosorbide Mononitrate ER [Imdur] 60 mg PO DAILY #30 tab 08/19/19 Rx Allergies Allergy/AdvReac Type Severity Reaction Status Date / Time No Known Allergies Allergy Verified 08/17/19 22:42 Physical Exam Vitals: Vital Signs Temp Pulse Pulse Resp BP BP Pulse Ox 08/29/19 07:15 97.5 F L 80 18 139/74 96 08/29/19 06:30 70 18 138/64 98 08/29/19 06:00 60 18 171/83 96 08/29/19 05:30 73 18 164/57 96 08/29/19 05:00 66 18 147/64 97 08/29/19 04:30 73 18 136/53 98 08/29/19 04:23 20 08/29/19 04:17 98.1 F 67 20 136/53 Intake and Output 08/28/19 08/29/19 08/29/19 22:59 06:59 14:59 Other: Weight 139.706 kg 139.706 kg General: non toxic, no distress, appears at stated age, morbidly obese Derm: Some chronic venous stasis changes of bilateral lower extremities, warm, dry Head: atraumatic, normocephalic, symmetric Eyes: EOMI, no lid lag, anicteric sclera, pupils equal round reactive to light ENT: Nose and ears atraumatic, no thrush, no pharyngeal erythema Neck: No thyromegaly, no cervical lymphadenopathy, trachea midline, supple Mouth: no lip lesion, mucus membranes moist Cardiovascular: S1S2 reg, no murmur, positive posterior tibial pulse bilateral, 1+ bilateral lower extremity edema, capillary refill less than 2 seconds Lungs: CTA bilateral, no rhonchi, no rales , no accessory muscle use Abdominal: soft, nontender to palpation, no guarding, no appreciable organomegaly, normal bowel sounds Ext: no gross muscle atrophy, muscle strength 5 out of 5 in all 4 extremities grossly, no contractures, Neuro: CN II-XI grossly intact, light touch intact all 4 extremities, finger to nose within normal limits, Psych: Alert, oriented, appropriate affect Results CBC & Chem 7: 08/29/19 04:46 08/29/19 04:46 Labs: Abnormal Lab Results - Last 24 Hours (Table) 08/29/19 08/29/19 08/29/19 Range/Units 04:46 04:46 04:46 WBC 15.0 H (3.8-10.6) k/uL RBC 3.57 L (4.30-5.90) m/uL Hgb 11.8 L (13.0-17.5) gm/dL Hct 35.0 L (39.0-53.0) % Neutrophils # 12.3 H (1.3-7.7) k/uL APTT 39.2 H (22.0-30.0) sec Sodium 136 L (137-145) mmol/L Potassium 3.1 L (3.5-5.1) mmol/L Chloride 95 L (98-107) mmol/L BUN 35 H (9-20) mg/dL Creatinine 1.29 H (0.66-1.25) mg/dL Glucose 159 H (74-99) mg/dL Thrombosis Risk Factor Assmnt - Choose All That Apply Any of the Below Risk Factors Present?: Yes Each Factor Represents 1 point: Obesity (BMI >25) Other Risk Factors: Yes Each Risk Factor Represents 3 Points: Age 75 years or older Thrombosis Risk Factor Assessment Total Risk Factor Score: 4 Thrombosis Risk Factor Assessment Level: Moderate Risk Assessment and Plan Plan: Chest pain, r/o ACS -Cardiology recommendations appreciated -Continue to trend troponin -Planned for likely stress test versus cardiac catheterization -Cardiac monitoring -Continue with aspirin, Lipitor, nitro Leukocytosis -No active infectious process noted -Likely due to acute stress -Monitor CBC Hypokalemia -Replace and monitor CKD Stage III, at baseline Chronic LBP -C/w home meds [place] Normocytic anemia -At baseline Chronic conditions: HTN, HLD -C/w home meds DVT prophylaxis -Heparin subq The patient is admitted with an anticipated less than 2 midnight stay for evaluation of chest pain CODE STATUS: Full Code Discussed with: Patient Anticipated discharge date: 1-[address]: home A total of 35 minutes was spent on the care of this complex patient more than 50% of the time was spent in counseling and care coordination.
[2019-08-29] MEDS: amLODIPine 5 MG TAB PO SCH (10:19)
[2019-08-29] MEDS: METOPROLOL TARTRATE 50 MG TAB PO SCH ×2 (10:19→20:01)
[2019-08-29] MEDS: ISOSORBIDE MONONITRATE ER 60 MG TAB.ER.24H PO SCH (10:19)
[2019-08-29] MEDS ORDERED: COLCHICINE 0.6 MG EACH PO PRN (11:36)
[2019-08-29] MEDS: METOLAZONE 5 MG TAB PO SCH (12:09)
[2019-08-29] MEDS: HYDROcodone/APAP 7.5-325MG 1 EACH TAB PO PRN ×2 (14:20→21:56)
[2019-08-29] MEDS: HEPARIN SODIUM,PORCINE 5,000 UNIT/ML 1 ML VIAL SQ SCH ×2 (16:31→22:52)
[2019-08-29] MEDS: MELATONIN 5 MG TABLET PO SCH (20:00)
[2019-08-29] MEDS ORDERED: ATORVASTATIN 40 MG TAB PO SCH (21:00)
[2019-08-30 07:01] LABS: Cholesterol 178 mg/dL (<200); HDL Cholesterol 41 mg/dL (40-60); LDL Cholesterol,Calculated 89 mg/dL (0-99); Triglycerides 240 mg/dL (<150)
[2019-08-30] MEDS: HEPARIN SODIUM,PORCINE 5,000 UNIT/ML 1 ML VIAL SQ SCH ×3 (08:09→23:39)
[2019-08-30] MEDS: HYDROcodone/APAP 7.5-325MG 1 EACH TAB PO PRN ×3 (08:10→23:39)
[2019-08-30] MEDS ORDERED: ASPIRIN 325 MG TAB PO SCH (09:00)
[2019-08-30] MEDS ORDERED: METOLAZONE 5 MG TAB PO SCH (09:00)
--- NOTE | 2019-08-30 09:21 | P.PN ---
Subjective Principal diagnosis: This is Dr. Dutton dictating a follow-up on this patient The patient was interviewed and examined by me IMPRESSION / ASSESSMENT: Patient admitted with chest discomfort on good medical treatment No evidence for acute myocardial infarction Minimal nonspecific ST-T changes on ECG Sitting comfortably in a chair Known coronary artery disease status post coronary artery bypass grafting and recent coronary angiogram which showed an occluded diagonal vessel Medical treatment was recommended for non-Q-wave CT Patient returns with recurrent chest discomfort Patient's creatinine is 1.29 GFR 53 potassium 3.1, hemoglobin 11.8 PLAN: Lexiscan cardio lyte stress test today and if that is significant ischemia in the lateral wall/diagonal territory then we will proceed with percutaneous intervention Increase atorvastatin to 80 mg by mouth daily. His LDL is 89 mg/dL and the goal should be lower than that, at least below 70 preferably closer to 50 mg HPI Patient presented with chest discomfort. Seen yesterday by Dr. Schmitz. Recommended proceeding with stress testing if saccadic enzymes are normal No chest discomfort overnight complains of a lot of back pain relieved with Toradol Known coronary artery disease status post coronary artery bypass grafting and recent non-Q-wave CT with an occluded diagonal vessel ROS: No fever chills or rigors, no cough, phlegm or expectoration, no nausea, vomiting or diarrhea, no hematuria, dysuria, no musculoskeletal complaints, no strokes or seizures, no skin lesions. EXAMINATION: 98.2F, pulse rate in the 60s blood pressure 135/70 mmHg Breath sounds are reduced bilaterally with no rhonchi no crackles Normal heart sounds no murmurs or gallops or rub Increased BMI REVIEW OF LABS, ECG & MEDICAL DATA Normal cardiac enzymes Nonspecific ST abnormalities on 12-lead EKG Objective - Vital Signs Vital signs: Vital Signs Temp 98.2 F 08/30/19 07:37 Pulse 69 08/30/19 07:37 Resp 19 08/30/19 07:37 BP 135/70 08/30/19 07:37 Pulse Ox 97 08/30/19 09:12 Intake & Output 08/29/19 08/30/19 08/30/19 18:59 06:59 18:59 Intake Total 476 Balance 476 Weight 139.706 kg 145.3 kg Intake: Oral 476 Other: Voiding Method Toilet Toilet Toilet # Voids 2 1 - Labs CBC & Chem 7: 08/29/19 04:46 02/16/20 04:46 Labs: Abnormal Lab Results - Last 24 Hours (Table) 08/30/19 Range/Units 05:32 Triglycerides 240 H (<150) mg/dL
[2019-08-30] MEDS ORDERED: CAFFEINE CITRATE 60 MG/3 ML VIAL IV PRN (09:22)
[2019-08-30] MEDS ORDERED: AMINOPHYLLINE 500 MG/20 ML VIAL IV PRN (09:22)
[2019-08-30] MEDS ORDERED: REGADENOSON 0.4 MG/5 ML SYRINGE IV ONE (09:22)
[2019-08-30] MEDS ORDERED: KETOROLAC 30 MG/ML 1 ML VIAL IVP STA (09:26)
[2019-08-30] MEDS ORDERED: DIPYRIDAMOLE 70 MG in SODIUM CHLORIDE 0.9% 50 ML IV ONE (09:30)
[2019-08-30 10:29] LABS: Calcium 9.7 mg/dL (8.4-10.2); Potassium 3.9 mmol/L (3.5-5.1)
[2019-08-30] MEDS ORDERED: AMINOPHYLLINE 500 MG/20 ML VIAL IV ONE (11:45)
--- NOTE | 2019-08-30 12:05 | EST ---
EXERCISE STRESS AGE: 79 SEX: M HT: 5'11" WT: 320 PROTOCOL: Lexiscan Cardiolite Stress Test. HEART RATE REST: 75 BLOOD PRESSURE REST: 146/80 MAXIMUM HEART RATE ACHIEVED: 91 MAXIMUM BLOOD PRESSURE: 194/73 85% MPHR: 122 100% MPHR: 143 INDICATIONS: Chest pain. CLINICAL INFORMATION: The patient presenting with chest discomfort, occluded diagonal vessel. Evaluation for ischemia in the diagonal territory. The patient was brought in for a stress test. Baseline heart rate 75 beats per minute. Baseline blood pressure 146/80 mmHg. Baseline 12-lead ECG showed normal sinus rhythm, normal cardiac intervals. Patient received Persantine infusion per protocol. No significant change in heart rate or blood pressure. No ECG changes. No ST-segment abnormalities. No arrhythmias. Nuclear portion will be reported separately. MMODL / IJN: [id number] /
[2019-08-30] MEDS: METOPROLOL TARTRATE 50 MG TAB PO SCH ×2 (12:53→20:09)
[2019-08-30] MEDS: FUROSEMIDE 40 MG TAB PO SCH (12:54)
[2019-08-30] MEDS: ISOSORBIDE MONONITRATE ER 60 MG TAB.ER.24H PO SCH (12:54)
[2019-08-30] MEDS: ASPIRIN 81 MG PO SCH (12:54)
[2019-08-30] MEDS: ALLOPURINOL 300 MG TAB PO SCH (12:54)
[2019-08-30] MEDS: amLODIPine 5 MG TAB PO SCH (12:54)
[2019-08-30] MEDS: METOLAZONE 5 MG TAB PO SCH (12:54)
[2019-08-30] MEDS: POTASSIUM CHLORIDE ER 10 MEQ TAB.ER.PRT PO SCH (12:54)
--- NOTE | 2019-08-30 13:08 | NM ---
EXAMINATION TYPE: NM stress lexiscan cardiolite DATE OF EXAM: 08/30/2019 COMPARISON: NONE HISTORY: Chest TECHNIQUE: After the intravenous administration of 10.7 mCi Tc 99m Sestamibi - Cardiolite resting SP ECT images acquired 45 minutes post injection. The patient received 0.4mg Lexiscan, 27.3 mCi Tc 99m Sestamibi - Stress images obtained [address] injection FINDINGS: Review of stress and rest SPECT images demonstrates perfusion defect on both rest and stress images w ithin the inferior lateral and inferior wall the myocardium. There is reduced wall motion activity in these regions.. Gated analysis shows an estimated left ventricular ejection fraction of 67 %. IMPRESSION: 1. Predominantly fixed defect involving the inferior and inferolateral myocardium. Tiny areas of stre ss-induced reversible ischemia are not excluded. Correlate clinically. 2. Ejection fraction is 67%..
--- NOTE | 2019-08-30 15:38 | P.PN ---
Subjective Progress Note Date: 08/30/19 Principal diagnosis: follow up for chest pain patient seen and examined, patient is waiting for stress test today denies any trouble breathing or ongoing chest pain Objective - Vital Signs Vital signs: Vital Signs Temp 98.2 F 08/30/19 07:37 Pulse 69 08/30/19 07:37 Resp 19 08/30/19 07:37 BP 135/70 08/30/19 07:37 Pulse Ox 97 08/30/19 09:12 Intake & Output 08/29/19 08/30/19 08/30/19 18:59 06:59 18:59 Intake Total 476 Balance 476 Weight 139.706 kg 145.3 kg Intake: Oral 476 Other: Voiding Method Toilet Toilet Toilet # Voids 2 1 - Exam Constitutional: vital signs stable, Not in acute distress, pleasant, conversant Lungs: Clear to auscultation bilaterally, clear to percussion, normal respiratory effort Cardiovascular: Regular rate and rhythm, no murmurs, no gallops, no rubs, no peripheral edema Gastrointestinal: Soft, no tenderness to palpation, no palpable hepatosplenomegally, bowel sounds positive Extremities: No digital cyanosis or clubbing, peripheral pulses palpable and equal , no calf muscle tenderness Psych: Alert, oriented to place, person and time, appropriate affect, intact judgment - Labs CBC & Chem 7: 08/29/19 04:46 08/30/19 05:32 Labs: Abnormal Lab Results - Last 24 Hours (Table) 08/30/19 08/30/19 Range/Units 05:32 05:32 BUN 32 H (9-20) mg/dL Glucose 139 H (74-99) mg/dL Triglycerides 240 H (<150) mg/dL Assessment and Plan Assessment: The patient is a 79-year-old male with a PMH of coronary artery disease status post CABG, multiple recent hospitalizations with a recent [place] (on optimal medical therapy), hypertension, hyperlipidemia, obstructive sleep apnea, and chronic lower back pain presented to the ED was an onset of substernal pressure-like chest discomfort The patient did report improvement in his pain after taking aspirin on his way to the hospital and resolved within 2-3 hours. Plan: Chest pain, r/o ACS -Cardiology following troponins negative stress test today -Cardiac monitoring -Continue with aspirin, Lipitor, nitro Leukocytosis -No active infectious process noted -Likely due to acute stress -Monitor CBC Hypokalemia -Replace and monitor CKD Stage III, at baseline Chronic LBP -C/w home meds [place] Normocytic anemia -At baseline Chronic conditions: HTN, HLD -C/w home meds DVT prophylaxis -Heparin subq
[2019-08-30 16:15] VITALS: RESP 18
--- NOTE | 2019-08-30 17:59 | P.PN ---
Progress Note - Text Stress test, Lexiscan did not show any evidence for ischemia, there was inferolateral fixed defect However the patient had an episode of nonsustained ventricular tachycardia in the presence of normal LV function He presented with chest discomfort on guideline directed medical treatment with good doses including high-dose beta blockers up to 300 mg a day In view of his recurrence of chest discomfort and nonsustained atrial tachycardia have spoken to Dr. Lara. The films will be reviewed by him once again to see if that occluded diagonal vessel be cutaneously revascularized or not In the interim I will increase the dose of atorvastatin to 80 mg by mouth daily Discussed with the nurse Clear liquids for breakfast tomorrow
[2019-08-30] MEDS: MELATONIN 5 MG TABLET PO SCH (20:08)
[2019-08-30] MEDS: ATORVASTATIN 80 MG TAB PO SCH (20:08)
[2019-08-31 06:43] LABS: Basophils # (A) 0.1 k/uL (0-0.2); Basophils % (A) 1 %; Eosinophils # (A) 0.2 k/uL (0-0.7); Eosinophils % (A) 3 %; HCT 35.9 % (39.0-53.0); HGB 11.9 gm/dL (13.0-17.5); Lymphocytes # (A) 1.5 k/uL (1.0-4.8); Lymphocytes % (A) 16 %; MCH 33.4 pg (25.0-35.0); MCHC 33.3 g/dL (31.0-37.0); MCV 100.4 fL (80.0-100.0); Macrocytosis Slight; Mean Platelet Volume 7.3; Monocytes # (A) 0.6 k/uL (0-1.0); Monocytes % (A) 6 %; Neutrophils # (A) 6.8 k/uL (1.3-7.7); Neutrophils % (A) 71 %; Platelet Count 278 k/uL (150-450); RBC 3.57 m/uL (4.30-5.90); RDW 14.7 % (11.5-15.5); WBC 9.7 k/uL (3.8-10.6)
[2019-08-31 06:58] LABS: Albumin 3.9 g/dL (3.5-5.0); Calcium 9.3 mg/dL (8.4-10.2); Magnesium 1.6 mg/dL (1.6-2.3); Potassium 3.5 mmol/L (3.5-5.1); Total Bilirubin 0.5 mg/dL (0.2-1.3); Total Protein 6.4 g/dL (6.3-8.2)
[2019-08-31] MEDS: amLODIPine 5 MG TAB PO SCH (08:06)
[2019-08-31] MEDS: ASPIRIN 81 MG PO SCH (08:06)
[2019-08-31] MEDS: HEPARIN SODIUM,PORCINE 5,000 UNIT/ML 1 ML VIAL SQ SCH ×3 (08:06→23:22)
[2019-08-31] MEDS: ALLOPURINOL 300 MG TAB PO SCH (08:06)
[2019-08-31] MEDS: METOLAZONE 5 MG TAB PO SCH (08:06)
[2019-08-31] MEDS: ISOSORBIDE MONONITRATE ER 60 MG TAB.ER.24H PO SCH (08:06)
[2019-08-31] MEDS: METOPROLOL TARTRATE 50 MG TAB PO SCH ×2 (08:06→20:21)
[2019-08-31] MEDS: FUROSEMIDE 40 MG TAB PO SCH (08:06)
[2019-08-31] MEDS: POTASSIUM CHLORIDE ER 10 MEQ TAB.ER.PRT PO SCH (08:06)
[2019-08-31] MEDS: HYDROcodone/APAP 7.5-325MG 1 EACH TAB PO PRN ×2 (12:03→20:22)
--- NOTE | 2019-08-31 14:09 | P.PN ---
Subjective Progress Note Date: 08/31/19 Principal diagnosis: follow up for chest pain patient seen and examined, had an episode of non sustained v tach yesterday denies any chest pain today denies trouble breathing Objective - Vital Signs Vital signs: Vital Signs Temp 97.4 F L 08/31/19 11:57 Pulse 61 08/31/19 11:57 Resp 18 08/31/19 11:57 BP 113/65 08/31/19 11:57 Pulse Ox 94 L 08/31/19 11:57 Intake & Output 08/30/19 08/31/19 08/31/19 18:59 06:59 18:59 Intake Total 650 Balance 650 Intake: Oral 550 Other 100 Other: Voiding Method Toilet Toilet Toilet # Voids 1 1 - Exam Constitutional: vital signs stable, Not in acute distress, pleasant, conversant Lungs: Clear to auscultation bilaterally, clear to percussion, normal respiratory effort Cardiovascular: Regular rate and rhythm, no murmurs, no gallops, no rubs, no peripheral edema Gastrointestinal: Soft, no tenderness to palpation, no palpable hepatosplenomegally, bowel sounds positive Extremities: No digital cyanosis or clubbing, peripheral pulses palpable and equal , no calf muscle tenderness Psych: Alert, oriented to place, person and time, appropriate affect, intact judgment - Labs CBC & Chem 7: 08/31/19 06:11 08/31/19 06:11 Labs: Abnormal Lab Results - Last 24 Hours (Table) 08/31/19 08/31/19 Range/Units 06:11 06:11 RBC 3.57 L (4.30-5.90) m/uL Hgb 11.9 L (13.0-17.5) gm/dL Hct 35.9 L (39.0-53.0) % MCV 100.4 H (80.0-100.0) fL BUN 27 H (9-20) mg/dL Glucose 129 H (74-99) mg/dL Assessment and Plan Assessment: The patient is a 79-year-old male with a PMH of coronary artery disease status post CABG, multiple recent hospitalizations with a recent [place] (on optimal medical therapy), hypertension, hyperlipidemia, obstructive sleep apnea, and chronic lower back pain presented to the ED was an onset of substernal pressure-like chest discomfort The patient did report improvement in his pain after taking aspirin on his way to the hospital and resolved within 2-3 hours. 08/31 stress test showed no evidence of ischemia, but suggested inferolateral fixed defect patient LVEF is preserved patient had episode of non sustained Vtach cardiology considering left heart cath in AM patient to remain under observation for that Plan: Chest pain, r/o ACS episode of nunsustained vtach -Cardiology following troponins negative stress test showed no reversible ischemia, but fixed inferolateral defect -Cardiac monitoring -Continue with aspirin, Lipitor, nitro Leukocytosis -No active infectious process noted -Likely due to acute stress -Monitor CBC Hypokalemia, resolved CKD Stage III, at baseline Chronic LBP -C/w home meds [place] Normocytic anemia -At baseline Chronic conditions: HTN, HLD -C/w home meds DVT prophylaxis -Heparin subq left heart cath in AM
[2019-08-31 16:34] LABS: Glucose,Whole Blood 212 mg/dL (75-99)
[2019-08-31] MEDS ORDERED: POLYETHYLENE GLYCOL 3350 17 GM POWD.PACK PO STA (17:46)
[2019-08-31 20:19] LABS: Glucose,Whole Blood 174 mg/dL (75-99)
[2019-08-31] MEDS: MELATONIN 5 MG TABLET PO SCH (20:22)
[2019-08-31] MEDS: ATORVASTATIN 80 MG TAB PO SCH (20:22)
[2019-09-01 06:38] LABS: Glucose,Whole Blood 155 mg/dL (75-99)
[2019-09-01] MEDS ORDERED: ALPRAZolam 0.5 MG TAB PO PRN (07:48)
[2019-09-01] MEDS ORDERED: ASPIRIN 325 MG TAB PO STA (07:48)
[2019-09-01] MEDS ORDERED: ALPRAZolam 0.25 MG TAB PO PRN (07:48)
[2019-09-01] MEDS ORDERED: SODIUM CHLORIDE 0.9% 1,000 ML in EMPTY BAG 1 BAG IV ONE (07:48)
[2019-09-01] MEDS: HEPARIN SODIUM,PORCINE 5,000 UNIT/ML 1 ML VIAL SQ SCH ×3 (08:51→23:28)
[2019-09-01] MEDS: FUROSEMIDE 40 MG TAB PO SCH (08:52)
[2019-09-01] MEDS: ISOSORBIDE MONONITRATE ER 60 MG TAB.ER.24H PO SCH (08:52)
[2019-09-01] MEDS: ALLOPURINOL 300 MG TAB PO SCH (08:52)
[2019-09-01] MEDS: amLODIPine 5 MG TAB PO SCH (08:52)
[2019-09-01] MEDS: METOLAZONE 5 MG TAB PO SCH (08:53)
[2019-09-01] MEDS: POTASSIUM CHLORIDE ER 10 MEQ TAB.ER.PRT PO SCH (08:53)
[2019-09-01] MEDS: METOPROLOL TARTRATE 50 MG TAB PO SCH ×2 (08:54→20:09)
[2019-09-01] MEDS: HYDROcodone/APAP 7.5-325MG 1 EACH TAB PO PRN ×3 (09:05→23:28)
[2019-09-01] MEDS ORDERED: KETOROLAC 30 MG/ML 1 ML VIAL IVP STA (09:31)
[2019-09-01] MEDS ORDERED: VERAPAMIL 2.5 MG/ML 2 ML AMP ONE (11:08)
[2019-09-01] MEDS ORDERED: LIDOCAINE 1% INJ 10MG/ML (20 ML MDV) ONE (11:08)
[2019-09-01] MEDS ORDERED: IV FLUID CONTINUATION 1,000 ML IV ONE (11:14)
[2019-09-01] MEDS ORDERED: LIDOCAINE 1% INJ 10MG/ML (20 ML MDV) SQ ONE (11:21)
[2019-09-01] MEDS ORDERED: MIDAZOLAM 2 MG/2 ML VIAL IV ONE (11:23)
[2019-09-01] MEDS ORDERED: VERAPAMIL SYRINGE (5 MG/10 ML) INTRAARTER ONE (11:29)
[2019-09-01] MEDS ORDERED: SODIUM CHLORIDE 0.9% IV ONE (11:49)
[2019-09-01] MEDS ORDERED: BIVALIRUDIN BOLUS 250 MG/50 ML IV ONE (11:49)
[2019-09-01] MEDS ORDERED: BIVALIRUDIN IV ONE (11:49)
[2019-09-01] MEDS ORDERED: NITROGLYCERIN 1000MCG/10ML SYRINGE INTRACORON ONE (12:03)
[2019-09-01] MEDS ORDERED: CLOPIDOGREL 75 MG TAB ONE (12:04)
[2019-09-01] MEDS ORDERED: CLOPIDOGREL 75 MG TAB PO ONE (12:13)
[2019-09-01] MEDS ORDERED: IOPAMIDOL-370 100ML BTL INJ ONE (12:13)
[2019-09-01] MEDS ORDERED: ZOLPIDEM 5 MG TAB PO PRN (12:20)
[2019-09-01] MEDS ORDERED: MAG HYDROX/AL HYDROX/SIMETH 30 ML CUP PO PRN (12:20)
[2019-09-01] MEDS ORDERED: ATROPINE SULFATE 0.1 MG/ML 10ML SYRINGE IV PRN (12:20)
[2019-09-01] MEDS ORDERED: RX INFO: IV CONTRAST WAS GIVEN 1 EACH MISC MISCELLANE PRN (12:20)
[2019-09-01] MEDS ORDERED: NITROGLYCERIN SL TABS 0.4 MG TAB SUBLINGUAL PRN (12:20)
--- NOTE | 2019-09-01 12:59 | PTCA ---
PERCUTANEOUSTRANS CORORONARY ANGIOGRAPHY DATE OF SERVICE: 09/01/2019. PROCEDURE: PTCA and stenting of saphenous vein graft to the diagonal branch of LAD with a drug- eluting stent. PERFORMED BY: Dr. Drake Schmitz. Moderate conscious sedation time was 47 minutes. Patient was administered Versed. His oxygen saturation, hemodynamics and EKG were monitored closely. CLINICAL INFORMATION: Mr. Lyn is a 79-year-old gentleman with a previous history of aortocoronary bypass surgery with sternal dehiscence requiring reinforcement. He has hypertension, hyperlipidemia and is a patient of Dr. Teran. He underwent a cardiac cath recently, which revealed that the 2 vein grafts were occluded. JUNE to LAD was patent. Vein graft to the diagonal had a 70% stenosis. His RCA was patent, but the PLV branch was stenosed and occluded. His 2 vein grafts to the RCA and OM were occluded and not visualized. He was advised medical therapy with stress test and stress test revealed predominantly fixed defect, but he continued to have chest pain and therefore he was advised stenting of the vein graft to the diagonal after due discussion with the patient and . Risks, benefits, options, and rationale were explained. PROCEDURE NOTE: Under local anesthesia and strict aseptic precautions, a placed a 6-Icelandic introducer in the right radial artery. There was extreme tortuosity and therefore I had difficulty cannulating the vein graft to the diagonal. I. therefore switched over to the femoral approach. Under strict aseptic precautions and local anesthesia, a 6- [place]ic introducer was placed in the right femoral artery. Initially, I used an AR2 guide catheter, but then because of poor guide support, I switched over to a hockey- stick type guide catheter. With this, I was able to cannulate the vein graft to the diagonal. A run-through wire was used to cross the lesion, wire was kept distally. Without predilatation a 3.5 caliber 12 mm long Xience stent was deployed at 12 atmospheres. Patient did not have chest pain or EKG changes. Excellent angiographic result without complication was achieved. The sheath was taken out and Angio- Seal device used to secure hemostasis. The right radial sheath was taken out and TR band used to secure hemostasis. Oxygen saturation of the fingers of the right hand was 94%. Patient tolerated the procedure well without complication. He received Angiomax bolus and infusion as per protocol and he also received 600 mg of Plavix. Results were discussed with the patient and family and I expect he will be discharged tomorrow if he remains stable. JOSE J / ANNN: [id number] / [email or web address]
[2019-09-01] MEDS: SODIUM CHLORIDE 0.9% 1,000 ML IV SCH (15:41)
[2019-09-01 17:06] LABS: Glucose,Whole Blood 152 mg/dL (75-99)
[2019-09-01] MEDS: ATORVASTATIN 80 MG TAB PO SCH (20:09)
[2019-09-01 20:39] LABS: Glucose,Whole Blood 361 mg/dL (75-99)
--- NOTE | 2019-09-01 21:31 | P.PN ---
Progress Note - Text History of presenting complaint: This is a pleasant [address] Martinez [place]. Chronic stable medical conditions include coronary artery disease with prior bypass, essential hypertension, hyperlipidemia, obstructive sleep apnea, primary osteoarthritis, chronic gout, GERD, lymphoma undergoing chemotherapy by Dr. Oneal, normocytic anemia from underlying lymphoma. Patient was here in August 19 with acute LA. Cardiac catheterization was carried out. Decision was made to manage medically. Patient now presents again with shortness of breath or chest pressure. Troponins were negative. Today-taken to the cardiac phlebotomist lab assistant. Angioplasty stent was done to the SVG to the diagonal branch of the LAD. Postprocedure laying in bed. Comfortable. Review of systems: Was done for constitutional, cardiovascular, GI, pulmonary. relevant finding as above Active Medications Hydrocodone Bitart/Acetaminophen ([place] 7.5-325) 1 each PO TID PRN PRN Reason: Pain Last Admin: 09/01/19 14:11 Dose: 1 each Documented by: Al Hydroxide/Mg Hydroxide (Maalox) 30 ml PO Q4HR PRN PRN Reason: Heartburn Allopurinol (Zyloprim) 300 mg PO DAILY [facility] Last Admin: 09/01/19 08:52 Dose: 300 mg Documented by: Alprazolam (Xanax) 0.25 mg PO Q6HR PRN PRN Reason: Mild Anxiety Alprazolam (Xanax) 0.5 mg PO Q6HR PRN PRN Reason: Moderate Anxiety Amlodipine Besylate (Norvasc) 5 mg PO DAILY [facility] Last Admin: 09/01/19 08:52 Dose: 5 mg Documented by: Aspirin (Aspirin) 81 mg PO DAILY [facility] Atorvastatin Calcium (Lipitor) 80 mg PO HS [facility] Last Admin: 09/01/19 20:09 Dose: 80 mg Documented by: Atropine Sulfate (Atropine) 0.5 mg IV ONCE PRN PRN Reason: Symptomatic Bradycardia Clopidogrel Bisulfate (Plavix) 75 mg PO DAILY [facility] Colchicine (Colcrys) 0.6 mg PO DAILY PRN PRN Reason: GOUT Furosemide (Lasix) 40 mg PO DAILY [facility] Last Admin: 09/01/19 08:52 Dose: 40 mg Documented by: Heparin Sodium (Porcine) (Heparin) 5,000 unit SQ Q8HR [facility] Last Admin: 09/01/19 15:42 Dose: Not Given Documented by: Sodium Chloride (Saline 0.9%) 1,000 mls @ 75 mls/hr IV .[id number] [facility] Stop: 09/02/19 06:31 Last Admin: 09/01/19 15:41 Dose: 75 mls/hr Documented by: Isosorbide Mononitrate (Imdur) 60 mg PO DAILY [facility] Last Admin: 09/01/19 08:52 Dose: 60 mg Documented by: Melatonin (Melatonin) 5 mg PO HS [facility] Last Admin: 08/31/19 20:22 Dose: 5 mg Documented by: Metolazone (Zaroxolyn) 5 mg PO DAILY [facility] Last Admin: 09/01/19 08:53 Dose: 5 mg Documented by: Metoprolol Tartrate (Lopressor) 150 mg PO BID [facility] Last Admin: 09/01/19 20:09 Dose: 150 mg Documented by: Miscellaneous Information (Potassium Per Protocol) 1 each MISCELLANE DAILY PRN; Protocol PRN Reason: Per Protocol Miscellaneous Information (Rx Info: Iv Contrast Was Given) 1 each MISCELLANE DAILY PRN PRN Reason: Per Protocol Stop: 09/03/19 12:21 Nitroglycerin (Nitrostat) 0.4 mg SUBLINGUAL Q5M PRN PRN Reason: Chest Pain Potassium Chloride (K-Dur 10) 10 meq PO DAILY [facility] Last Admin: 09/01/19 08:53 Dose: 10 meq Documented by: Zolpidem Tartrate (Ambien) 5 mg PO HS PRN PRN Reason: Insomnia Physical examination: VITAL SIGNS: 96.7, 67, 18, 125/56, 96% on room air GENERAL: Laying in bed, comfortable EYES: Pupils equal. Conjunctiva normal. HEENT: External appearance of nose and ears normal, oral cavity grossly normal. NECK: JVD unable to assess; masses not palpable. HEART: First and second heart sounds are normal; some edema. LUNGS: Respiratory rate normal; decreased breath sounds. ABDOMEN: Soft, nontender, liver spleen not palpable, no masses palpable. PSYCH: Alert and oriented x3; mood and affect normal. INVESTIGATIONS, reviewed in the clinical context: White count 9.7 hemoglobin 11.9 potassium 3.5 creatinine 1.12 Nuclear stress test possible area of reversible ischemia Previous testing: Bun 35 creatinine 1.29 potassium 3.1 Troponin I 0.01, 0.012, 0.012 Assessment: -Unstable angina in a patient known coronary artery disease -Acute non-Q-wave LA on 08/19/2019 -Coronary artery disease a prior history of bypass. -Essential hypertension -Hyperlipidemia -Obstructive sleep apnea -Primary osteoarthritis -GERD -Chronic varicose veins with insufficiency -Lymphoma being treated with chemotherapy with Dr. nOeal -Morbid obesity BMI 44.7 Plan: Patient status post cardiac cath with stent today. Home medications to continue. Care was discussed the patient and . Follow with cardiology
[2019-09-01] MEDS: MELATONIN 5 MG TABLET PO SCH (23:28)
[2019-09-02 05:41] LABS: Glucose,Whole Blood 147 mg/dL (75-99)
[2019-09-02] MEDS: SODIUM CHLORIDE 0.9% 1,000 ML IV SCH (05:59)
[2019-09-02 06:06] LABS: Basophils # (A) 0.1 k/uL (0-0.2); Basophils % (A) 1 %; Eosinophils # (A) 0.3 k/uL (0-0.7); Eosinophils % (A) 3 %; HCT 34.7 % (39.0-53.0); HGB 11.5 gm/dL (13.0-17.5); Lymphocytes # (A) 1.3 k/uL (1.0-4.8); Lymphocytes % (A) 13 %; MCH 32.6 pg (25.0-35.0); MCV 98.8 fL (80.0-100.0); Mean Platelet Volume 7.5; Monocytes # (A) 0.6 k/uL (0-1.0); Monocytes % (A) 6 %; Neutrophils # (A) 7.3 k/uL (1.3-7.7); Neutrophils % (A) 75 %; Platelet Count 258 k/uL (150-450); RBC 3.51 m/uL (4.30-5.90); RDW 14.5 % (11.5-15.5); WBC 9.7 k/uL (3.8-10.6)
[2019-09-02 06:27] LABS: Calcium 8.9 mg/dL (8.4-10.2); Potassium 3.9 mmol/L (3.5-5.1)
[2019-09-02] MEDS: HEPARIN SODIUM,PORCINE 5,000 UNIT/ML 1 ML VIAL SQ SCH (08:13)
[2019-09-02] MEDS: METOPROLOL TARTRATE 50 MG TAB PO SCH (08:13)
[2019-09-02] MEDS: METOLAZONE 5 MG TAB PO SCH (08:13)
[2019-09-02] MEDS: FUROSEMIDE 40 MG TAB PO SCH (08:14)
[2019-09-02] MEDS: ALLOPURINOL 300 MG TAB PO SCH (08:14)
[2019-09-02] MEDS: amLODIPine 5 MG TAB PO SCH (08:14)
[2019-09-02] MEDS: ISOSORBIDE MONONITRATE ER 60 MG TAB.ER.24H PO SCH (08:14)
[2019-09-02] MEDS: POTASSIUM CHLORIDE ER 10 MEQ TAB.ER.PRT PO SCH (08:14)
[2019-09-02] MEDS: HYDROcodone/APAP 7.5-325MG 1 EACH TAB PO PRN (08:20)
[2019-09-02] MEDS ORDERED: ASPIRIN 81 MG PO SCH (09:00)
[2019-09-02 09:20] VITALS: BMI 44.6
[2019-09-02 11:46] LABS: Glucose,Whole Blood 160 mg/dL (75-99)
[2019-09-02] MEDS ORDERED: CLOPIDOGREL 75 MG TAB PO SCH (12:00)
[2019-09-02 12:32] VITALS: BP 112/56; PULSE 68; TEMP 97.7
--- NOTE | 2019-09-02 12:50 | P.PN ---
Subjective Progress Note Date: 09/02/19 This is a 79-year-old gentleman who follows with Dr. Lara in the office. He has a known history of coronary artery disease with prior bypass surgery, hypertension, hyperlipidemia, obstructive sleep apnea, morbid obesity, chronic back pain. Presented to the hospital with symptoms of chest discomfort, was taken to the cardiac catheterization lab. He underwent PTCA and stenting of the saphenous vein graft to the diagonal. The patient was seen and examined this morning, sitting up at the chair bedside. He denies any chest pain, no difficulty in breathing. Blood pressure 112/60 with a heart rate in the 60s, 95% on room air. White blood cell count 9.7, hemoglobin 11.5, platelet count 258. Sodium 138, potassium 3.9, BUN 26, creatinine 1.2. Objective - Vital Signs Vital signs: Vital Signs Temp 97.7 F 09/02/19 11:40 Pulse 68 09/02/19 11:40 Resp 18 09/02/19 11:40 BP 112/56 09/02/19 11:40 Pulse Ox 95 09/02/19 11:40 Intake & Output 09/01/19 09/02/19 09/02/19 18:59 06:59 18:59 Intake Total 628 375 836 Output Total 300 Balance 328 375 836 Weight 145.3 kg Intake: IV 628 375 Sodium Chloride 0.9% 1, 375 000 ml @ 75 mls/hr IV . [id number] [facility] Rx#:[id number] Oral 836 Output: Urine 300 Other: Voiding Method Toilet Toilet - Exam CONSTITUTIONAL: No apparent distress. HEENT: Head is normocephalic. Pupils are equal, round. Sclerae anicteric. Mucous membranes of the mouth are moist. No JVD. No carotid bruit. CHEST EXAMINATION: Lungs are clear to auscultation. No chest wall tenderness is noted on palpation or with deep breathing. HEART EXAMINATION: Regular rate and rhythm. S1, S2 heard. No murmurs, gallops or rub. ABDOMEN: Soft, nontender. Positive bowel sounds. EXTREMITIES: 2+ peripheral pulses, no lower extremity edema and no calf tenderness. Right radial site and right groin are soft, no evidence of any hematoma NEUROLOGIC EXAMINATION: Patient is awake, alert and oriented x3. - Labs CBC & Chem 7: 09/02/19 05:44 09/02/19 05:44 Labs: Abnormal Lab Results - Last 24 Hours (Table) 09/01/19 09/01/19 09/02/19 Range/Units 16:59 20:36 05:38 RBC (4.30-5.90) m/uL Hgb (13.0-17.5) gm/dL Hct (39.0-53.0) % Carbon Dioxide (22-30) mmol/L BUN (9-20) mg/dL Glucose (74-99) mg/dL POC Glucose (mg/dL) 152 H 361 H 147 H (75-99) mg/dL 09/02/19 09/02/19 09/02/19 Range/Units 05:44 05:44 11:44 RBC 3.51 L (4.30-5.90) m/uL Hgb 11.5 L (13.0-17.5) gm/dL Hct 34.7 L (39.0-53.0) % Carbon Dioxide 31 H (22-30) mmol/L BUN 26 H (9-20) mg/dL Glucose 137 H (74-99) mg/dL POC Glucose (mg/dL) 160 H (75-99) mg/dL Assessment and Plan Plan: ASSESSMENT and plan #1 Chest pain status post angioplasty and stenting of the saphenous vein graft to the diagonal branch of the LAD #2 Hypokalemia #3 Recent myocardial infarction, maximum medical therapy recommended. #4 History of coronary artery disease status post bypass grafting #5 Hypertension #6Dyslipidemia #7 Chronic low back pain follows with Dr. Kirby #8 Obstructive sleep apnea #9 Morbid obesity, BMI 43 Plan From cardiology's perspective, the patient may be able to be discharged home today, we'll make a follow-up appointment in the office with Dr. Teran post discharge. DNP note has been reviewed, I agree with a documented findings and plan of care. Patient was seen and examined.
--- NOTE | 2019-09-02 17:10 | P.DS ---
Providers Date of admission: 08/31/19 09:24 Expected date of discharge: 09/02/19 Attending physician: Brannon Barcenas Consults: 08/29/19 06:39 Consult Physician Urgent Consulting Provider: Margarita López Consult Reason/Comments: chest pain, known CAD, considering angioplasty after cath 2 weeks ago Do you want consulting provider notified?: Yes, Notify in am 09/01/19 12:21 Consult Physician Routine Consulting Provider: Cardiology Maribel Consult Reason/Comments: Post Interventional patient Do you want consulting provider notified?: Already Contacted [facility]: History of presenting complaint: This is a pleasant [address] Martinez yoo. Chronic stable medical conditions include coronary artery disease with prior bypass, essential hypertension, hyperlipidemia, obstructive sleep apnea, primary osteoarthritis, chronic gout, GERD, lymphoma undergoing chemotherapy by Dr. Oneal, normocytic anemia from underlying lymphoma. Patient was here in August 19 with acute ME. Cardiac catheterization was carried out. Decision was made to manage medically. Patient now presents again with shortness of breath or chest pressure. Troponins were negative. taken to the cardiac labor and delivery registered nurse. Angioplasty stent was done to the SVG to the diagonal branch of the LAD. . today-sitting up. Comfortable. No chest pain. Please stable. Continue to go home. Discussed with the patient. Cleared by oncology. consultation: Dr. NAEL Schmitz from cardiology Physical examination: VITAL SIGNS: 97.7, 68, 18, 112/56, 95% on room air GENERAL: sitting up in a chair, comfortable EYES: Pupils equal. Conjunctiva normal. HEENT: External appearance of nose and ears normal, oral cavity grossly normal. NECK: JVD unable to assess; masses not palpable. HEART: First and second heart sounds are normal; some edema. LUNGS: Respiratory rate normal; decreased breath sounds. ABDOMEN: Soft, nontender, liver spleen not palpable, no masses palpable. PSYCH: Alert and oriented x3; mood and affect normal. INVESTIGATIONS, reviewed in the clinical context: White count 9.7 hemoglobin 11.9 potassium 3.5 creatinine 1.12 Nuclear stress test possible area of reversible ischemia Previous testing: Bun 35 creatinine 1.29 potassium 3.1 Troponin I 0.01, 0.012, 0.012 Assessment: -Unstable angina in a patient known coronary artery disease -Cardiac catheterization with-Angioplasty stent was done to the SVG to the diagonal branch of the LAD -Acute non-Q-wave ME on 08/19/2019 -Coronary artery disease a prior history of bypass. -Essential hypertension -Hyperlipidemia -Obstructive sleep apnea -Primary osteoarthritis -GERD -Chronic varicose veins with insufficiency -Lymphoma being treated with chemotherapy with Dr. Oneal -Morbid obesity BMI 44.7 Plan: home Patient Condition at Discharge: Stable Plan - Discharge Summary Discharge Rx Participant: No New Discharge Prescriptions: New Atorvastatin [Lipitor] 80 mg PO HS #30 tab Nitroglycerin Sl Tabs [Nitrostat] 0.4 mg SUBLINGUAL Q5M PRN #25 tab PRN Reason: Chest Pain Clopidogrel [Plavix] 75 mg PO DAILY #30 tab Continue Pantoprazole [Protonix] 40 mg PO DAILY amLODIPine [Norvasc] 5 mg PO DAILY Allopurinol [Zyloprim] 300 mg PO DAILY Metoprolol Tartrate [Lopressor] 150 mg PO BID Furosemide [Lasix] 40 mg PO DAILY Aspirin EC [Ecotrin Low Dose] 81 mg PO DAILY Potassium Chloride ER [K-Dur 10] 10 meq PO DAILY Cholecalciferol [Vitamin D3 (25 Mcg = 1000 Iu)] 1,000 unit PO DAILY HYDROcodone/APAP 7.5-325MG [[place] 7.5-325] 1 tab PO TID PRN PRN Reason: Pain Melatonin 5 mg PO HS Colchicine [Colcrys] 0.6 mg PO DAILY PRN PRN Reason: GOUT Magnesium Oxide [Magox 400] 400 mg PO DAILY Isosorbide Mononitrate ER [Imdur] 60 mg PO DAILY #30 tab Metolazone [Zaroxolyn] 5 mg PO DAILY Vitamin B Complex 1 cap PO DAILY Discontinued Atorvastatin [Lipitor] 40 mg PO HS No Action Turmeric Root Extract [Turmeric] 500 mg PO DAILY Discharge Medication List Pantoprazole [Protonix] 40 mg PO DAILY 06/19/16 [History] amLODIPine [Norvasc] 5 mg PO DAILY 07/21/16 [History] Allopurinol [Zyloprim] 300 mg PO DAILY 07/22/16 [History] Metoprolol Tartrate [Lopressor] 150 mg PO BID 10/25/16 [History] Furosemide [Lasix] 40 mg PO DAILY 01/11/17 [History] Aspirin EC [Ecotrin Low Dose] 81 mg PO DAILY 09/20/18 [History] Cholecalciferol [Vitamin D3 (25 Mcg = 1000 Iu)] 1,000 unit PO DAILY 07/10/19 [History] HYDROcodone/APAP 7.5-325MG [[place] 7.5-325] 1 tab PO TID PRN 07/10/19 [History] Potassium Chloride ER [K-Dur 10] 10 meq PO DAILY 07/10/19 [History] Colchicine [Colcrys] 0.6 mg PO DAILY PRN 08/17/19 [History] Magnesium Oxide [Magox 400] 400 mg PO DAILY 08/17/19 [History] Melatonin 5 mg PO HS 08/17/19 [History] Turmeric Root Extract [Turmeric] 500 mg PO DAILY 08/17/19 [History] Isosorbide Mononitrate ER [Imdur] 60 mg PO DAILY #30 tab 08/19/19 [Rx] Metolazone [Zaroxolyn] 5 mg PO DAILY 08/29/19 [History] Vitamin B Complex 1 cap PO DAILY 08/29/19 [History] Atorvastatin [Lipitor] 80 mg PO HS #30 tab 09/02/19 [Rx] Clopidogrel [Plavix] 75 mg PO DAILY #30 tab 09/02/19 [Rx] Nitroglycerin Sl Tabs [Nitrostat] 0.4 mg SUBLINGUAL Q5M PRN #25 tab 09/02/19 [Rx] Follow up Appointment(s)/Referral(s): [facility],Cardiac [NON-STAFF] - (After discharge, you will follow-up with your filler leaf cutter long. Once you have obtained a prescription for cardiac rehab and have completed a stress test, please call [phone] to set up an evaluation.) Martinez Yoo MD [Primary Care Provider] - 09/09/19 2:45 pm Piotr Teran MD [STAFF PHYSICIAN] - 09/15/19 12:45 pm (October appointment rescheduled. ) Patient Instructions/Handouts: *Surgery [facility] - After Heart Catheterization - Support Services Manager Instructions, Heart Healthy Diet (DC), Coronary Intravascular Stent Placement (DC) Activity/Diet/Wound Care/Special Instructions: CARDIAC CATH 1. Support your puncture site by applying firm, steady pressure whenever you cough, laugh, sneeze or bear down to have a bowel movement (2-day restriction). 2. Watch for any excessive bruising, active bleeding, a firm knot forming under your skin, extreme tenderness and signs of infection (redness, swelling, fever). 3. Shower daily, do not soak puncture in a tub bath, jacuzzi, pool, peralta etc. for 1 week. This is to prevent risk of infection. 4. Drink plenty of fluids the day of and day after your procedure to flush contrast dye out of your kidneys. 5. Take all medications as directed. Never stop any new medication without your physicians OK. 6. No driving for 2 days after procedure. 7. 10- pound weight lifting restriction for 1 week. 8. Low sodium/low fat diet. 9. Activity limited until follow up appointment with your filler leaf cutter long. In case of any problems, please call [facility], Adi Navarro @ [phone]. Discharge Disposition: HOME SELF-CARE Care Plan Goals (MU): New januvia being filled for diabetic coverage. Patient aware..
== END 2019-09-02 14:27 | disposition home or self-care (01) | DRG 246 ==
LOC: EC 04:15 → 1SOBS 06:39 → OBSVTOIN 08-31 09:24 → 3SCARD 09-01 13:50
PROVIDERS: ADMIT Hospitalist; ATTEND Hospitalist
PROC: 027034Z Dilation of Coronary Artery, One Artery with Drug-eluting Intraluminal Device, Percutaneous Approach (ICD-10-PCS; principal; 2019-09-01 10:00)
DX: I25.110 Atherosclerotic heart disease of native coronary artery with unstable angina pectoris (principal); I21.4 Non-ST elevation (NSTEMI) myocardial infarction; E87.3 Alkalosis; I25.810 Atherosclerosis of coronary artery bypass graft(s) without angina pectoris; Z68.41 Body mass index [BMI] 40.0-44.9, adult; I47.2 Ventricular tachycardia; C85.90 Non-Hodgkin lymphoma, unspecified, unspecified site; E66.01 Morbid (severe) obesity due to excess calories; E78.5 Hyperlipidemia, unspecified; E87.6 Hypokalemia; G47.33 Obstructive sleep apnea (adult) (pediatric); G89.29 Other chronic pain; I12.9 Hypertensive chronic kidney disease with stage 1 through stage 4 chronic kidney disease, or unspecified chronic kidney disease; K21.9 Gastro-esophageal reflux disease without esophagitis; M19.91 Primary osteoarthritis, unspecified site; N18.3 Chronic kidney disease, stage 3 (moderate); Z96.651 Presence of right artificial knee joint; I83.90 Asymptomatic varicose veins of unspecified lower extremity; M1A.9XX0 Chronic gout, unspecified, without tophus (tophi); D64.9 Anemia, unspecified; M54.5 Low back pain; M19.90 Unspecified osteoarthritis, unspecified site; I25.2 Old myocardial infarction; Z87.891 Personal history of nicotine dependence; Z85.828 Personal history of other malignant neoplasm of skin; Z80.0 Family history of malignant neoplasm of digestive organs; Z79.899 Other long term (current) drug therapy; Z79.82 Long term (current) use of aspirin; Z95.1 Presence of aortocoronary bypass graft; Z98.42 Cataract extraction status, left eye; Z98.41 Cataract extraction status, right eye; Z90.49 Acquired absence of other specified parts of digestive tract; Z99.89 Dependence on other enabling machines and devices
CPT/HCPCS: 36415; 71046; 78452; 80048; 80053; 80061; 83735; 83880; 84484; 85025; 85610; 85730; 93005; 93017; 99285

== ENCOUNTER → 2020-02-18 | Outpatient (CLI) | payer MEDICARE ==
--- NOTE | 2020-02-20 18:22 | PE ---
EXAMINATION TYPE: PET CT fusion skull to thigh DATE OF EXAM: 02/18/2020 COMPARISON: PET/CT 12/05/2018 HISTORY: Large B-cell lymphoma, subsequent treatment strategy. Undergoing treatment, last dose chemot herapy 02/01/2020. No history of radiation therapy. TECHNIQUE: Following the intravenous administration of 11.03 mCi of F-18 FDG, whole body images are performed from the skull base to the midthigh. Images are reviewed on the computer in the coronal, a xial, and sagittal planes. Reconstructed rotating images are created on independent workstation and reviewed on the computer. A localization and attenuation correction CT is performed in conjunction with the PET scan. Technologist notes vein blew at and of injection. Patient unable to put arms above head. SCAN: Subsequent Scan Blood glucose: 146 mg/dL Examination limited due to patient body habitus and positioning. FINDINGS: NECK: There is a new 2.2 x 2.3 cm right submandibular lymph node (3:50) with metabolic activity less than blood pool. THORAX: No suspicious hypermetabolic uptake. No new adenopathy. ABDOMEN/PELVIS: Left mid abdominal mass the region of the left kidney is not significantly changed in size or metabolic activity versus 12/05/2018 CT comparison. No new adenopathy or mass, although exam is significantly limited due to patient body habitus. OSSEOUS STRUCTURES: No suspicious hypermetabolic activity. LOCALIZATION CT: Cardiomegaly and calcified coronary artery disease. No splenomegaly. No abdominal ao rtic aneurysm. Severe calcified atherosclerotic disease of the abdominal aorta. Degenerative changes of the spine. IMPRESSION: Versus 12/05/2018 PET/CT comparison: 1. Limited PET CT examination. 2. New 2.3 cm right submandibular lymph node, with slight metabolic activity below blood pool. 3. Left abdominal mass with mild hypermetabolic activity appears similar.
== END | disposition home or self-care (01) ==
LOC: RADPETMAIN 08:40
PROVIDERS: ATTEND Internal Medicine Hematology & Oncology
DX: C83.33 Diffuse large B-cell lymphoma, intra-abdominal lymph nodes (principal)
CPT/HCPCS: 78815; A9552

== ENCOUNTER → 2020-03-07 | Outpatient (CLI) | payer MEDICARE ==
[2020-03-07 09:25] LABS: Basophils # (A) 0.1 k/uL (0-0.2); Basophils % (A) 1 %; Eosinophils # (A) 0.2 k/uL (0-0.7); Eosinophils % (A) 2 %; HCT 37.5 % (39.0-53.0); HGB 12.1 gm/dL (13.0-17.5); Lymphocytes # (A) 1.7 k/uL (1.0-4.8); Lymphocytes % (A) 16 %; MCH 32.8 pg (25.0-35.0); MCHC 32.1 g/dL (31.0-37.0); MCV 102.1 fL (80.0-100.0); Macrocytosis Slight; Mean Platelet Volume 7.1; Monocytes # (A) 0.6 k/uL (0-1.0); Monocytes % (A) 6 %; Neutrophils # (A) 8.1 k/uL (1.3-7.7); Neutrophils % (A) 74 %; Platelet Count 269 k/uL (150-450); RBC 3.68 m/uL (4.30-5.90); RDW 15.8 % (11.5-15.5); WBC 10.9 k/uL (3.8-10.6)
[2020-03-07 18:15] LABS: Hemoglobin A1C 7.1 % (4.0-6.0)
[2020-03-07 18:58] LABS: African American GFR (CKD) 55.8 (60.0-200.0); Albumin 4.4 g/dL (3.80-4.90); Albumin/Globulin Ratio 2.44 (1.60-3.17); BUN/Creat Ratio 24.29 Ratio (12.00-20.00); Calcium 9.5 mg/dL (8.7-10.3); Chol/HDL Ratio 4.72; Globulin 1.8 g/dL (1.6-3.3); LDL Cholesterol,Calculated 91.8 mg/dL (0.0-131.0); Non-African American GFR(CKD) 48.1 (60.0-200.0); Potassium 3.3 mmol/L (3.5-5.5); Total Bilirubin 0.6 mg/dL (0.3-1.2); Total Protein 6.2 g/dL (6.2-8.2); VLDL Calculation 27.2 mg/dL (5.00-40.00)
== END | disposition home or self-care (01) ==
LOC: LABWHC1 08:27
PROVIDERS: ATTEND Podiatrist
DX: L97.822 Non-pressure chronic ulcer of other part of left lower leg with fat layer exposed (principal); I73.9 Peripheral vascular disease, unspecified; E11.21 Type 2 diabetes mellitus with diabetic nephropathy; I10 Essential (primary) hypertension; E11.42 Type 2 diabetes mellitus with diabetic polyneuropathy; E78.2 Mixed hyperlipidemia
CPT/HCPCS: 36415; 80053; 80061; 83036; 84134; 85025

== ENCOUNTER → 2020-03-08 | Outpatient (CLI) | payer MEDICARE ==
--- NOTE | 2020-03-08 20:41 | US ---
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 Non-healing wounds bilateral lower legs SIDE PERFORMED: Bilateral 1) Color flow is present and patency is documented in the following vessels. No DVT or SVT is noted . EIV Common Femoral Vein Deep Femoral Vein Femoral Vein Popliteal Vein Proximal Calf Veins Greater Saph Vein Upper Small Saph Vein 2) There is venous reflux noted at the following venous levels: No evidence of reflux bilaterally IMPRESSION: 1. Lower extremity venous ultrasound without evidence of venous reflux.
--- NOTE | 2020-03-15 14:33 | P.ARTDOP ---
Arterial Doppler LOWER EXTREMITY ARTERIAL DOPPLER: DATE OF SERVICE: 03/08/2020 Reason for study: Bilateral leg ulcers. Doppler waveforms: Multiphasic bilaterally throughout. Pulse volume recording: []. Pressure gradients: None. Ankle-brachial indices: Cannot occlude. Toe brachial indices: 0.67 on the right, 0.94 on the left Impression: Normal study.
== END | disposition home or self-care (01) ==
LOC: RADUSWWP 13:28
PROVIDERS: ATTEND Podiatrist
DX: I73.9 Peripheral vascular disease, unspecified (principal); E11.42 Type 2 diabetes mellitus with diabetic polyneuropathy; E11.21 Type 2 diabetes mellitus with diabetic nephropathy; L97.822 Non-pressure chronic ulcer of other part of left lower leg with fat layer exposed; I10 Essential (primary) hypertension
CPT/HCPCS: 93922; 93970

== ENCOUNTER 2020-07-26 22:07 | Observation (INO) | payer MEDICARE ==
[2020-07-26] MEDS ORDERED: ONDANSETRON 4 MG/2 ML VIAL IVP STA (22:22)
--- NOTE | 2020-07-26 23:10 | XR ---
EXAM: XR Abdomen, 1 View CLINICAL HISTORY: Abdominal pain. TECHNIQUE: Frontal supine view of the abdomen/pelvis. COMPARISON: No previous study. FINDINGS: Gastrointestinal tract: The stomach is mildly distended with air. Minimal air is noted within the ascending colon proximally and the sigmoid colon. Organs: Status post cholecystectomy. Bones/joints: Moderate degenerative disc disease of the lumbar spine. Vasculature: Atherosclerotic disease. Other findings: The abdomen is relatively gasless of uncertain significance. IMPRESSION: 1. Mildly distended air-filled stomach. 2. Relatively gasless abdomen of uncertain significance. 3. If there is a high degree of concern, CT imaging of the abdomen and pelvis is advised to follow.
[2020-07-26 23:31] LABS: Basophils # (A) 0.1 k/uL (0-0.2); Basophils % (A) 1 %; Eosinophils # (A) 0.1 k/uL (0-0.7); Eosinophils % (A) 1 %; HCT 38.8 % (39.0-53.0); HGB 13.5 gm/dL (13.0-17.5); Lymphocytes # (A) 0.6 k/uL (1.0-4.8); Lymphocytes % (A) 4 %; MCHC 34.8 g/dL (31.0-37.0); Mean Platelet Volume 7.5; Monocytes # (A) 0.7 k/uL (0-1.0); Monocytes % (A) 5 %; Neutrophils # (A) 12.1 k/uL (1.3-7.7); Neutrophils % (A) 89 %; Platelet Count 258 k/uL (150-450); Poikilocytosis Slight; RBC 4.08 m/uL (4.30-5.90); RDW 15.4 % (11.5-15.5); WBC 13.7 k/uL (3.8-10.6)
[2020-07-26 23:48] LABS: Albumin 4.2 g/dL (3.5-5.0); Calcium 9.4 mg/dL (8.4-10.2); Total Bilirubin 1.2 mg/dL (0.2-1.3)
[2020-07-26 23:58] LABS: Potassium 2.5 mmol/L (3.5-5.1)
[2020-07-27 00:31] LABS: Appearance,Urine Clear (Clear); Bilirubin,Urine Negative (Negative); Blood,Urine Negative (Negative); Color,Urine Yellow; Glucose,Urine (UA) Negative (Negative); Hyaline Casts,Urine 20 /lpf (0-2); Ketones,Urine Negative (Negative); Leukocyte Esterase,Urine Negative (Negative); Mucus,Urine Rare /hpf; Nitrite,Urine Negative (Negative); PH, Urine 5.5 (5.0-8.0); Protein,Urine 2+ (Negative); RBC,Urine 1 /hpf (0-5); Specific Gravity,Urine 1.018 (1.001-1.035); Squamous Epithelial Cell,Urine <1 /hpf (0-4); Urobilinogen,Urine <2.0 mg/dL (<2.0); WBC,Urine 1 /hpf (0-5)
[2020-07-27] MEDS ORDERED: POTASSIUM CHLORIDE ER 20 MEQ TAB.ER PO STA (00:36)
[2020-07-27] MEDS ORDERED: NALOXONE 0.4 MG/ML 1 ML VIAL IV PRN (01:41)
[2020-07-27] MEDS ORDERED: ONDANSETRON 4 MG/2 ML VIAL IVP PRN (01:41)
[2020-07-27] MEDS ORDERED: MELATONIN 5 MG TABLET PO PRN (03:00)
[2020-07-27] MEDS: POTASSIUM CHLORIDE ER 20 MEQ TAB.ER PO SCH ×2 (03:02→15:59)
[2020-07-27] MEDS: SODIUM CHLORIDE 0.9% 1,000 ML IV SCH ×2 (03:40→10:56)
[2020-07-27] MEDS: HYDROcodone/APAP 7.5-325MG 1 EACH TAB PO PRN ×2 (04:08→18:02)
[2020-07-27] MEDS: MOXIFLOXACIN HCL 0.5% DROPS 3 ML BTL BOTH EYES SCH ×11 (04:59→23:39)
[2020-07-27] MEDS: PANTOPRAZOLE 40 MG TABLET PO SCH (06:54)
[2020-07-27] MEDS: CHOLECALCIFEROL 1,000 UNIT TAB PO SCH (10:51)
[2020-07-27] MEDS: MAGNESIUM OXIDE 400 MG TAB PO SCH (10:51)
[2020-07-27] MEDS: CLOPIDOGREL 75 MG TAB PO SCH (10:51)
[2020-07-27] MEDS: METOPROLOL TARTRATE 50 MG TAB PO SCH ×2 (10:52→21:10)
[2020-07-27] MEDS: hydrALAZINE HCL 50 MG TAB PO SCH ×2 (10:52→21:11)
[2020-07-27] MEDS: ASPIRIN 81 MG PO SCH (10:52)
[2020-07-27] MEDS: LINAGLIPTIN 5 MG TABLET PO SCH (10:52)
[2020-07-27] MEDS: ISOSORBIDE MONONITRATE ER 60 MG TAB.ER.24H PO SCH (10:52)
[2020-07-27] MEDS: allopurinoL 300 MG TAB PO SCH (10:52)
[2020-07-27] MEDS ORDERED: LACTATED RINGERS 1,000 ML IV SCH ×2 (12:15→19:00)
[2020-07-27 13:35] LABS: Calcium 9.5 mg/dL (8.4-10.2); Potassium 3.2 mmol/L (3.5-5.1)
[2020-07-27] MEDS: PSYLLIUM HUSK 100% 6 GM PACKET PO SCH ×2 (13:51→21:10)
--- NOTE | 2020-07-27 18:49 | P.HPIM ---
History of Present Illness H&P Date: 07/27/20 Chief Complaint: Lose bowel History of presenting complaint: This is a pleasant [address] Martinez austin. Chronic stable medical conditions include coronary artery disease with prior bypass, essential hypertension, hyperlipidemia, obstructive sleep apnea, primary osteoarthritis, chronic gout, GERD, lymphoma status post chemotherapy by Dr. Oneal, normocytic anemia from underlying lymphoma. Patient now presents with 3-4 days of loose stools. No blood. No abdominal pain. Denies any fever and chills. Feels tired rundown. Decreased appetite.. Review of systems: GEN.: Tired EYES: None HEENT: None NECK: None RESPIRATORY: None CARDIOVASCULAR: None GASTROINTESTINAL: As above GENITOURINARY: None MUSCULOSKELETAL: Joint pains LYMPHATICS: None HEMATOLOGICAL: None PSYCHIATRY: None NEUROLOGICAL: None Past medical history to include: Coronary artery disease with bypass, essential hypertension, hyperlipidemia, obstructive sleep apnea, primary osteoarthritis, chronic gout, GERD, lymphoma treated with chemotherapy, normocytic anemia Social history: Was in the [employer] and worked in the [employer] [place]. Smoked a pack a day for 30 years stopped in 1988. Lives with his . Physical examination: VITAL SIGNS: 97.9, 103, 18, 174/74, 92% room air GENERAL: BMI 39.3, sitting of age of the bed, tired. EYES: Pupils equal. Conjunctiva normal. HEENT: External appearance of nose and ears normal, oral cavity grossly normal. NECK: JVD not raised; masses not palpable. HEART: First and second heart sounds are normal; no edema. LUNGS: Respiratory rate normal; decreased breath sounds CHEST wall: Port left infraclavicular area. ABDOMEN: Soft, nontender, liver spleen not palpable, no masses palpable. PSYCH: [Alert and oriented x3; mood and affect tired l. NEUROLOGICAL: Cranial nerves grossly intact; no facial asymmetry, power and sensation grossly intact. LYMPHATICS: No lymph nodes palpable in the axilla and neck Assessment: -Acute diarrhea, likely gastroenteritis possibly viral. No fever no chills. No abdominal pain. C. diff ruled out. -Clinical dehydration -Coronary artery disease a prior history of bypass. -Essential hypertension -Hyperlipidemia -Obstructive sleep apnea -Primary osteoarthritis -GERD -Chronic varicose veins with insufficiency -Lymphoma - treated with chemotherapy with Dr. Oneal -Obesity BMI 39.3 -Severe hypokalemia from diarrhea -Chronic kidney disease stage III Plan: Will check stool for ova and parasites. Home medications resumed. Metamucil is being added to form some bulk. Patient put on IV fluids. Repeat labs in the morning. Diet full liquids. Replace potassium. Care was discussed with the patient. Hopefully can be discharged tomorrow. Past Medical History Past Medical History: Cancer Additional Past Medical History / Comment(s): SKIN CANCER , GOUT CHRONIC BACK,SKIN LESIONS , chemo 09/18/2018, NSTEMI 08/18/2019- with heart caht no stents placed at that time. Last Myocardial Infarction Date:: MAY 2016 History of Any Multi-Drug Resistant Organisms: None Reported, MRSA Date of last positivie culture/infection: 07/22/16 MDRO Source:: LOWER LEGS Past Surgical History: Cholecystectomy, Coronary Bypass/CABG, Heart Catheterization Additional Past Surgical History / Comment(s): PICC line insertion/removed, bilateral caract removals, COLONOSCOPY, EGD, CANCEROUS SKIN LESIONS REMOVED, TOTAL RIGHT KNEE REPLACEMENT, 06-04-16 QUAD BYPASS Past Anesthesia/Blood Transfusion Reactions: Previous Problems w/ Anesthesia Additional Past Anesthesia/Blood Transfusion Reaction / Comment(s): HAD A HARD TIME COMING OUT OF ANESTHESIA AFTER CHOLECYSTECTOMY Past Psychological History: No Psychological Hx Reported Additional Psychological History / Comment(s): Pt had CABG 06/04/16 and went to [facility] for rehab. He completed rehab and came home. Spouse states he then developed a sternal wound infection/blisters on legs and went back into [facility] and was discharged to [facility] again. He has again returned home. He was ambulating without device. His spouse was driving him to [email or web address]. 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 No illnesses when he was there. No animal exposures. There is no family home with his . No extensive travels. Tobacco smoking stopped in 1988. No significant alcohol use Smoking Status: Former smoker Past Alcohol Use History: None Reported Additional Past Alcohol Use History / Comment(s): Pt quit smoking in 1988, STARTED SMOKING AT AGE 18 SMOKED 1 PPD. He denies any illicit drug use, no alcohol use. He is currently living at home with his but did go to [facility] in the past due to sternal wound infection and IV antibiotic needs. He is ambulating with a cane. 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 He was in the [employer] and [place] No animal exposures. No extensive travels. Past Drug Use History: None Reported - Past Family History Father Family Medical History: Vascular Disorder Additional Family Medical History / Comment(s): POOR CIRCULATION-HAD AMPUTATIONS D/T POOR CIRCULATION Mother Family Medical History: Cancer Additional Family Medical History / Comment(s): STOMACH CANCER Medications and Allergies Home Medications Medication Instructions Recorded Confirmed Type Pantoprazole [Protonix] 40 mg PO DAILY 06/19/16 07/26/20 History allopurinoL [Zyloprim] 300 mg PO DAILY 07/22/16 07/26/20 History Metoprolol Tartrate [Lopressor] 150 mg PO BID 10/25/16 07/26/20 History Furosemide [Lasix] 40 mg PO DAILY 01/11/17 07/26/20 History Aspirin EC [Ecotrin Low Dose] 81 mg PO DAILY 09/20/18 07/26/20 History Cholecalciferol [Vitamin D3 (25 2,000 unit PO DAILY 07/10/19 07/26/20 History Mcg = 1000 Iu)] HYDROcodone/APAP 7.5-325MG [[place] 1 tab PO TID PRN 07/10/19 07/26/20 History 7.5-325] Potassium Chloride ER [K-Dur 10] 10 meq PO DAILY 07/10/19 07/26/20 History Magnesium Oxide [Magox 400] 400 mg PO DAILY 08/17/19 07/26/20 History Melatonin 5 mg PO HS PRN 08/17/19 07/26/20 History Turmeric Root Extract [Turmeric] 500 mg PO DAILY 08/17/19 07/26/20 History Isosorbide Mononitrate ER [Imdur] 60 mg PO DAILY #30 tab 08/19/19 07/26/20 Rx Vitamin B Complex 1 cap PO DAILY 08/29/19 07/26/20 History metOLazone [Zaroxolyn] 5 mg PO DAILY 08/29/19 07/26/20 History Atorvastatin [Lipitor] 80 mg PO HS #30 tab 09/02/19 07/26/20 Rx Clopidogrel [Plavix] 75 mg PO DAILY #30 tab 09/02/19 07/26/20 Rx Nitroglycerin Sl Tabs [Nitrostat] 0.4 mg SUBLINGUAL Q5M PRN #25 tab 09/02/19 07/26/20 Rx Amoxic-Pot Clav 875-125Mg 1 tab PO BID 07/26/20 07/26/20 History [Augmentin 875-125] Erythromycin Ophth Oint [Romycin 1 applic BOTH EYES HS 07/26/20 07/26/20 History Ophth Oint] Moxifloxacin HCl [Moxifloxacin] 1 drop BOTH EYES Q2H 07/26/20 07/26/20 History hydrALAZINE HCL [Apresoline] 50 mg PO BID 07/26/20 07/26/20 History sitaGLIPtin [Januvia] 50 mg PO DAILY 07/26/20 07/26/20 History Allergies Allergy/AdvReac Type Severity Reaction Status Date / Time No Known Allergies Allergy Verified 07/26/20 23:03 Physical Exam Vitals: Vital Signs Temp Pulse Pulse Resp BP BP Pulse Ox 07/27/20 03:41 98.2 F 107 H 22 148/76 97 07/27/20 03:11 105 H 16 128/68 100 07/26/20 22:08 98.4 F 95 20 140/65 93 L Intake and Output 07/26/20 07/27/20 07/27/20 22:59 06:59 14:59 Other: Voiding Method Urinal # Bowel Movements 1 Weight 131.5 kg 131.5 kg Results CBC & Chem 7: 07/26/20 23:20 07/27/20 12:36 Labs: Abnormal Lab Results - Last 24 Hours (Table) 07/26/20 07/26/20 07/26/20 Range/Units 23:20 23:20 23:20 WBC 13.7 H (3.8-10.6) k/uL RBC 4.08 L (4.30-5.90) m/uL Hct 38.8 L (39.0-53.0) % Neutrophils # 12.1 H (1.3-7.7) k/uL Lymphocytes # 0.6 L (1.0-4.8) k/uL Sodium 130 L (137-145) mmol/L Potassium 2.5 L* (3.5-5.1) mmol/L Chloride 86 L (98-107) mmol/L Carbon Dioxide 31 H (22-30) mmol/L BUN 42 H (9-20) mg/dL Creatinine 1.48 H (0.66-1.25) mg/dL Glucose 152 H (74-99) mg/dL Urine Protein 2+ H (Negative) Hyaline Casts 20 H (0-2) /lpf Urine Mucus Rare H (None) /hpf Thrombosis Risk Factor Assmnt - Choose All That Apply Each Factor Represents 1 point: Abnormal pulmonary function (COPD), Acute CO Each Risk Factor Represents 3 Points: Age 75 years or older Thrombosis Risk Factor Assessment Total Risk Factor Score: 5 Thrombosis Risk Factor Assessment Level: High Risk
[2020-07-27] MEDS ORDERED: ATORVASTATIN 80 MG TAB PO SCH (21:00)
[2020-07-27] MEDS ORDERED: ERYTHROMYCIN 5 MG/GM OPHTH OINT 3.5 GM TUBE BOTH EYES SCH (21:00)
[2020-07-27] MEDS: INSULIN ASPART (NovoLOG) 100 UNIT/ML VIAL SQ SCH (21:11)
[2020-07-27 21:13] LABS: Glucose,Whole Blood 140 mg/dL (75-99)
[2020-07-28] MEDS: MOXIFLOXACIN HCL 0.5% DROPS 3 ML BTL BOTH EYES SCH ×7 (03:08→13:31)
[2020-07-28] MEDS: POTASSIUM CHLORIDE ER 20 MEQ TAB.ER PO SCH (03:13)
[2020-07-28] MEDS: HYDROcodone/APAP 7.5-325MG 1 EACH TAB PO PRN ×2 (03:23→11:48)
[2020-07-28] MEDS: INSULIN ASPART (NovoLOG) 100 UNIT/ML VIAL SQ SCH ×2 (06:30→11:50)
[2020-07-28 06:32] LABS: Glucose,Whole Blood 127 mg/dL (75-99)
[2020-07-28] MEDS: PANTOPRAZOLE 40 MG TABLET PO SCH (06:44)
[2020-07-28 08:01] VITALS: RESP 16; TEMP 98.9
[2020-07-28] MEDS: LINAGLIPTIN 5 MG TABLET PO SCH (08:55)
[2020-07-28] MEDS: hydrALAZINE HCL 50 MG TAB PO SCH (08:55)
[2020-07-28] MEDS: CHOLECALCIFEROL 1,000 UNIT TAB PO SCH (08:56)
[2020-07-28] MEDS: CLOPIDOGREL 75 MG TAB PO SCH (08:56)
[2020-07-28] MEDS: METOPROLOL TARTRATE 50 MG TAB PO SCH (08:56)
[2020-07-28] MEDS: MAGNESIUM OXIDE 400 MG TAB PO SCH (08:56)
[2020-07-28] MEDS: ASPIRIN 81 MG PO SCH (08:56)
[2020-07-28] MEDS: allopurinoL 300 MG TAB PO SCH (08:57)
[2020-07-28 10:03] LABS: Calcium 9.1 mg/dL (8.4-10.2); Potassium 3.9 mmol/L (3.5-5.1)
[2020-07-28 11:29] LABS: Glucose,Whole Blood 130 mg/dL (75-99)
[2020-07-28 11:36] VITALS: BP 136/94; PULSE 74
[2020-07-28] MEDS: ISOSORBIDE MONONITRATE ER 60 MG TAB.ER.24H PO SCH (11:49)
[2020-07-28] MEDS: PSYLLIUM HUSK 100% 6 GM PACKET PO SCH (11:49)
[2020-07-28] MEDS ORDERED: NYSTATIN 100,000 UNIT/ML SUSP 500,000 UNIT/5 ML CUP PO SCH (13:00)
--- NOTE | 2020-07-28 13:24 | P.DS ---
Providers Date of admission: 07/27/20 01:41 Attending physician: Brannon Barcenas Primary care physician: Martinez Yoo [facility] Course: This is a pleasant [address] Martinez yoo. Chronic stable medical conditions include coronary artery disease with prior bypass, essential hypertension, hyperlipidemia, obstructive sleep apnea, primary osteoarthritis, chronic gout, GERD, lymphoma status post chemotherapy by Dr. Oneal, normocytic anemia from underlying lymphoma. Patient now presents with 3-4 days of loose stools. No blood. No abdominal pain. Denies any fever and chills. Feels tired rundown. Decreased appetite.. 07/28/2020 Patient doesn't have any more diarrhea patient awoke light imbalances were corrected. Patient is coming of sore throat patient does have oral thrush. Considering the patient was having diarrhea not resume his antibiotics. His sore throat need to be reevaluated evaluated as an outpatient and if it gets worse patient may need antibiotics at the time at this point of time and do not believe patient need antibiotics. Patient will be discharged on the nystatin swish and swallow for old Frosch. Patient is on the 2 diuretics. Patient is remains hyponatremic which is most probably hypotonic hyponatremia because of which I'm not resume his diuretics, if needed patient can be started back on the Lasix. Patient creatinine is close to his baseline baseline is around 1.4 presently 1.6. Patient is otherwise feeling well. Patient will be discharged today. PHYSICAL EXAMINATION: GENERAL: The patient is alert and oriented x3, not in any acute distress. Obese HEENT: Pupils are round and equally reacting to light. EOMI. No scleral icterus. No conjunctival pallor. Normocephalic, atraumatic. No pharyngeal erythema. No thyromegaly. CARDIOVASCULAR: S1 and S2 present. No murmurs, rubs, or gallops. PULMONARY: Chest is clear to auscultation, no wheezing or crackles. ABDOMEN: Soft, nontender, nondistended, normoactive bowel sounds. No palpable organomegaly. MUSCULOSKELETAL: No joint swelling or deformity. EXTREMITIES: No cyanosis, clubbing, or pedal edema. NEUROLOGICAL: Gross neurological examination did not reveal any focal deficits. SKIN: No rashes. Assessment: -Acute diarrhea, likely gastroenteritis possibly viral. No fever no chills. No abdominal pain. C. diff ruled out. Resolved at this time -Clinical dehydration: Holding of diuretics repeat basic metabolic profile on Friday -Oral thrush -Coronary artery disease a prior history of bypass. -Essential hypertension -Hyperlipidemia -Obstructive sleep apnea -Primary osteoarthritis -GERD -Chronic varicose veins with insufficiency -Lymphoma - treated with chemotherapy with Dr. Oneal -Obesity BMI 39.3 -Severe hypokalemia from diarrhea -Chronic kidney disease stage III Plan - Discharge Summary New Discharge Prescriptions: New Nystatin 100,000 Unit/ml Susp [Mycostatin Oral Susp] 4 ml PO QID #100 ml Benzocaine/Menthol [Cepacol Sore Throat Lozenge] 1 each MM QID PRN #30 lozenge PRN Reason: Sore Throat Continue Pantoprazole [Protonix] 40 mg PO DAILY allopurinoL [Zyloprim] 300 mg PO DAILY Metoprolol Tartrate [Lopressor] 150 mg PO BID Aspirin EC [Ecotrin Low Dose] 81 mg PO DAILY Cholecalciferol [Vitamin D3 (25 Mcg = 1000 Iu)] 2,000 unit PO DAILY HYDROcodone/APAP 7.5-325MG [[place] 7.5-325] 1 tab PO TID PRN PRN Reason: Pain Turmeric Root Extract [Turmeric] 500 mg PO DAILY Melatonin 5 mg PO HS PRN PRN Reason: SLEEP Magnesium Oxide [Magox 400] 400 mg PO DAILY Isosorbide Mononitrate ER [Imdur] 60 mg PO DAILY #30 tab Vitamin B Complex 1 cap PO DAILY Atorvastatin [Lipitor] 80 mg PO HS #30 tab Nitroglycerin Sl Tabs [Nitrostat] 0.4 mg SUBLINGUAL Q5M PRN #25 tab PRN Reason: Chest Pain Clopidogrel [Plavix] 75 mg PO DAILY #30 tab sitaGLIPtin [Januvia] 50 mg PO DAILY hydrALAZINE HCL [Apresoline] 50 mg PO BID Moxifloxacin HCl [Moxifloxacin] 1 drop BOTH EYES Q2H Erythromycin Ophth Oint [Romycin Ophth Oint] 1 applic BOTH EYES HS Discontinued Furosemide [Lasix] 40 mg PO DAILY Potassium Chloride ER [K-Dur 10] 10 meq PO DAILY metOLazone [Zaroxolyn] 5 mg PO DAILY Amoxic-Pot Clav 875-125Mg [Augmentin 875-125] 1 tab PO BID Discharge Medication List Pantoprazole [Protonix] 40 mg PO DAILY 06/19/16 [History] allopurinoL [Zyloprim] 300 mg PO DAILY 07/22/16 [History] Metoprolol Tartrate [Lopressor] 150 mg PO BID 10/25/16 [History] Aspirin EC [Ecotrin Low Dose] 81 mg PO DAILY 09/20/18 [History] Cholecalciferol [Vitamin D3 (25 Mcg = 1000 Iu)] 2,000 unit PO DAILY 07/10/19 [History] HYDROcodone/APAP 7.5-325MG [[place] 7.5-325] 1 tab PO TID PRN 07/10/19 [History] Magnesium Oxide [Magox 400] 400 mg PO DAILY 08/17/19 [History] Melatonin 5 mg PO HS PRN 08/17/19 [History] Turmeric Root Extract [Turmeric] 500 mg PO DAILY 08/17/19 [History] Isosorbide Mononitrate ER [Imdur] 60 mg PO DAILY #30 tab 08/19/19 [Rx] Vitamin B Complex 1 cap PO DAILY 08/29/19 [History] Atorvastatin [Lipitor] 80 mg PO HS #30 tab 09/02/19 [Rx] Clopidogrel [Plavix] 75 mg PO DAILY #30 tab 09/02/19 [Rx] Nitroglycerin Sl Tabs [Nitrostat] 0.4 mg SUBLINGUAL Q5M PRN #25 tab 09/02/19 [Rx] Erythromycin Ophth Oint [Romycin Ophth Oint] 1 applic BOTH EYES HS 07/26/20 [History] Moxifloxacin HCl [Moxifloxacin] 1 drop BOTH EYES Q2H 07/26/20 [History] hydrALAZINE HCL [Apresoline] 50 mg PO BID 07/26/20 [History] sitaGLIPtin [Januvia] 50 mg PO DAILY 07/26/20 [History] Benzocaine/Menthol [Cepacol Sore Throat Lozenge] 1 each MM QID PRN #30 lozenge 07/28/20 [Rx] Nystatin 100,000 Unit/ml Susp [Mycostatin Oral Susp] 4 ml PO QID #100 ml 07/28/20 [Rx] Follow up Appointment(s)/Referral(s): Martinez Yoo MD [Primary Care Provider] - 1 Week Dereje Burton MD [STAFF PHYSICIAN] - 1 Week Ambulatory/Diagnostic Orders: Basic Metabolic Panel [LAB.AMB] Time Frame: 3 Days, Location: None Selected Discharge Disposition: HOME SELF-CARE
--- NOTE | 2020-08-09 10:13 | ED ---
Nausea/Vomiting/Diarrhea HPI - General Chief complaint: Nausea/Vomiting/Diarrhea Stated complaint: nausea, vomiting Time Seen by Provider: 07/26/20 22:09 Source: EMS Mode of arrival: EMS Limitations: no limitations - History of Present Illness MD complaint: nausea, vomiting, diarrhea Onset/Timin -: days(s) Description of Vomiting: food contents Description of Diarrhea: water Associated Abdominal Pain: Yes Location: diffuse Radiation: none Severity: moderate Quality: cramping Consistency: constant Improves with: none Worsens with: none Associated Symptoms: nausea/vomiting - Related Data Home Medications Medication Instructions Recorded Confirmed Pantoprazole [Protonix] 40 mg PO DAILY 06/19/16 07/26/20 allopurinoL [Zyloprim] 300 mg PO DAILY 07/22/16 07/26/20 Metoprolol Tartrate [Lopressor] 150 mg PO BID 10/25/16 07/26/20 Aspirin EC [Ecotrin Low Dose] 81 mg PO DAILY 09/20/18 07/26/20 Cholecalciferol [Vitamin D3 (25 2,000 unit PO DAILY 07/10/19 07/26/20 Mcg = 1000 Iu)] HYDROcodone/APAP 7.5-325MG [Nursery 1 tab PO TID PRN 07/10/19 07/26/20 7.5-325] Magnesium Oxide [Magox 400] 400 mg PO DAILY 08/17/19 07/26/20 Melatonin 5 mg PO HS PRN 08/17/19 07/26/20 Turmeric Root Extract [Turmeric] 500 mg PO DAILY 08/17/19 07/26/20 Vitamin B Complex 1 cap PO DAILY 08/29/19 07/26/20 Erythromycin Ophth Oint [Romycin 1 applic BOTH EYES HS 07/26/20 07/26/20 Ophth Oint] Moxifloxacin HCl [Moxifloxacin] 1 drop BOTH EYES Q2H 07/26/20 07/26/20 hydrALAZINE HCL [Apresoline] 50 mg PO BID 07/26/20 07/26/20 sitaGLIPtin [Januvia] 50 mg PO DAILY 07/26/20 07/26/20 Previous Rx's Medication Instructions Recorded Isosorbide Mononitrate ER [Imdur] 60 mg PO DAILY #30 tab 08/19/19 Atorvastatin [Lipitor] 80 mg PO HS #30 tab 09/02/19 Clopidogrel [Plavix] 75 mg PO DAILY #30 tab 09/02/19 Nitroglycerin Sl Tabs [Nitrostat] 0.4 mg SUBLINGUAL Q5M PRN #25 tab 09/02/19 Benzocaine/Menthol [Cepacol Sore 1 each MM QID PRN #30 lozenge 07/28/20 Throat Lozenge] Nystatin 100,000 Unit/ml Susp 4 ml PO QID #100 ml 07/28/20 [Mycostatin Oral Susp] Allergies Allergy/AdvReac Type Severity Reaction Status Date / Time No Known Allergies Allergy Verified 07/26/20 23:03 Review of Systems ROS Statement: Those systems with pertinent positive or pertinent negative responses have been documented in the HPI. ROS Other: All systems not noted in ROS Statement are negative. Constitutional: Denies: fever, chills Respiratory: Denies: cough, dyspnea Cardiovascular: Denies: chest pain, palpitations Gastrointestinal: Reports: abdominal pain, nausea, diarrhea. Denies: constipation, melena, hematochezia Genitourinary: Denies: dysuria, hematuria Musculoskeletal: Denies: back pain Skin: Denies: rash Neurological: Denies: headache, weakness, numbness Past Medical History Past Medical History: Cancer Additional Past Medical History / Comment(s): SKIN CANCER , GOUT CHRONIC BACK,SKIN LESIONS , chemo 09/18/2018, NSTEMI 08/18/2019- with heart caht no stents placed at that time. Last Myocardial Infarction Date:: MAY 2016 History of Any Multi-Drug Resistant Organisms: None Reported, MRSA Date of last positivie culture/infection: 07/22/16 MDRO Source:: LOWER LEGS Past Surgical History: Cholecystectomy, Coronary Bypass/CABG, Heart Catheterization Additional Past Surgical History / Comment(s): PICC line insertion/removed, bilateral caract removals, COLONOSCOPY, EGD, CANCEROUS SKIN LESIONS REMOVED, TOTAL RIGHT KNEE REPLACEMENT, 06-04-16 QUAD BYPASS Past Anesthesia/Blood Transfusion Reactions: Previous Problems w/ Anesthesia Additional Past Anesthesia/Blood Transfusion Reaction / Comment(s): HAD A HARD TIME COMING OUT OF ANESTHESIA AFTER CHOLECYSTECTOMY Past Psychological History: No Psychological Hx Reported Additional Psychological History / Comment(s): Pt had CABG 06/04/16 and went to [facility] for rehab. He completed rehab and came home. Spouse states he then developed a sternal wound infection/blisters on legs and went back into [facility] and was discharged to [facility] again. He has again returned home. He was ambulating without device. His spouse was driving him to [place]. 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 No illnesses when he was there. No animal exposures. There is no family home with his . No extensive travels. Tobacco smoking stopped in 1988. No significant alcohol use Smoking Status: Former smoker Past Alcohol Use History: None Reported Additional Past Alcohol Use History / Comment(s): Pt quit smoking in 1988, STARTED SMOKING AT AGE 18 SMOKED 1 PPD. He denies any illicit drug use, no alcohol use. He is currently living at home with his but did go to [facility] in the past due to sternal wound infection and IV antibiotic needs. He is ambulating with a cane. 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 He was in the [employer] [place] No animal exposures. No extensive travels. Past Drug Use History: None Reported - Past Family History Father Family Medical History: Vascular Disorder Additional Family Medical History / Comment(s): POOR CIRCULATION-HAD AMPUTATIONS D/T POOR CIRCULATION Mother Family Medical History: Cancer Additional Family Medical History / Comment(s): STOMACH CANCER General Exam General appearance: alert, in no apparent distress Head exam: Present: atraumatic, normocephalic Eye exam: Present: normal appearance. Absent: scleral icterus, conjunctival injection Respiratory exam: Present: normal lung sounds bilaterally. Absent: respiratory distress, wheezes, rales, rhonchi, stridor Cardiovascular Exam: Present: regular rate, normal rhythm, normal heart sounds. Absent: systolic murmur, diastolic murmur, rubs, gallop GI/Abdominal exam: Present: soft. Absent: distended, tenderness, guarding, rebound, rigid, mass, pulsatile mass, hernia Extremities exam: Present: normal inspection, normal capillary refill. Absent: pedal edema, calf tenderness Back exam: Present: normal inspection. Absent: CVA tenderness (R), CVA tenderness (L) Neurological exam: Present: alert Skin exam: Present: warm, dry, intact, normal color. Absent: rash Course Vital Signs 07/26/20 07/27/20 22:08 03:11 Temperature 98.4 F Pulse Rate 95 105 H Respiratory 20 16 Rate Blood Pressure 140/65 128/68 O2 Sat by Pulse 93 L 100 Oximetry Medical Decision Making - Medical Decision Making This patient is 80-year-old man presenting with abdominal cramping, nausea, diarrhea. Workup does reveal what appears to be ileus. Patient also with some electrolyte abnormalities, including mild hyponatremia, moderate hypokalemia. The patient not feeling much better following initial treatments. We'll admit for symptom control and for supplementation of his electrolytes and to have the ileus resolved. - Lab Data Result diagrams: 07/26/20 23:20 07/28/20 09:38 Lab Results 07/26/20 07/26/20 07/26/20 Range/Units 23:20 23:20 23:20 WBC 13.7 H (3.8-10.6) k/uL RBC 4.08 L (4.30-5.90) m/uL Hgb 13.5 (13.0-17.5) gm/dL Hct 38.8 L (39.0-53.0) % MCV 95.0 (80.0-100.0) fL MCH 33.0 (25.0-35.0) pg MCHC 34.8 (31.0-37.0) g/dL RDW 15.4 (11.5-15.5) % Plt Count 258 (150-450) k/uL MPV 7.5 Neutrophils % 89 % Lymphocytes % 4 % Monocytes % 5 % Eosinophils % 1 % Basophils % 1 % Neutrophils # 12.1 H (1.3-7.7) k/uL Lymphocytes # 0.6 L (1.0-4.8) k/uL Monocytes # 0.7 (0-1.0) k/uL Eosinophils # 0.1 (0-0.7) k/uL Basophils # 0.1 (0-0.2) k/uL Poikilocytosis Slight Sodium 130 L (137-145) mmol/L Potassium 2.5 L* (3.5-5.1) mmol/L Chloride 86 L (98-107) mmol/L Carbon Dioxide 31 H (22-30) mmol/L Anion Gap 13 mmol/L BUN 42 H (9-20) mg/dL Creatinine 1.48 H (0.66-1.25) mg/dL Est GFR (CKD-EPI)AfAm 52 (>60 ml/min/1.73 sqM) Est GFR (CKD-EPI)NonAf 45 (>60 ml/min/1.73 sqM) Glucose 152 H (74-99) mg/dL Calcium 9.4 (8.4-10.2) mg/dL Total Bilirubin 1.2 (0.2-1.3) mg/dL AST 42 (17-59) U/L ALT 27 (4-49) U/L Alkaline Phosphatase 104 (38-126) U/L Total Protein 7.0 (6.3-8.2) g/dL Albumin 4.2 (3.5-5.0) g/dL Amylase 57 (30-110) U/L Lipase 179 (23-300) U/L Urine Color Yellow Urine Appearance Clear (Clear) Urine pH 5.5 (5.0-8.0) Ur Specific Dawn 1.018 (1.001-1.035) Urine Protein 2+ H (Negative) Urine Glucose (UA) Negative (Negative) Urine Ketones Negative (Negative) Urine Blood Negative (Negative) Urine Nitrite Negative (Negative) Urine Bilirubin Negative (Negative) Urine Urobilinogen <2.0 (<2.0) mg/dL Ur Leukocyte Esterase Negative (Negative) Urine RBC 1 (0-5) /hpf Urine WBC 1 (0-5) /hpf Ur Squamous Epith Cells <1 (0-4) /hpf Hyaline Casts 20 H (0-2) /lpf Urine Mucus Rare H (None) /hpf Disposition Clinical Impression: Ileus, Hypokalemia Disposition: ADMITTED IP TO THIS HOSP Condition: Fair Is patient prescribed a controlled substance at d/c from ED?: No
== END 2020-07-28 14:35 | disposition home or self-care (01) ==
LOC: EC 22:07 → 1SOBS 07-27 01:41
PROVIDERS: ADMIT Hospitalist; ATTEND Hospitalist
DX: E86.0 Dehydration (principal); R19.7 Diarrhea, unspecified; B37.0 Candidal stomatitis; C85.90 Non-Hodgkin lymphoma, unspecified, unspecified site; E66.9 Obesity, unspecified; E78.5 Hyperlipidemia, unspecified; E87.1 Hypo-osmolality and hyponatremia; E87.6 Hypokalemia; G47.33 Obstructive sleep apnea (adult) (pediatric); I12.9 Hypertensive chronic kidney disease with stage 1 through stage 4 chronic kidney disease, or unspecified chronic kidney disease; I25.10 Atherosclerotic heart disease of native coronary artery without angina pectoris; I25.2 Old myocardial infarction; I83.90 Asymptomatic varicose veins of unspecified lower extremity; K21.9 Gastro-esophageal reflux disease without esophagitis; K52.9 Noninfective gastroenteritis and colitis, unspecified; K56.7 Ileus, unspecified; Z20.822 Contact with and (suspected) exposure to COVID-19; M19.91 Primary osteoarthritis, unspecified site; M1A.9XX0 Chronic gout, unspecified, without tophus (tophi); N18.30 Chronic kidney disease, stage 3 unspecified; S80.821A Blister (nonthermal), right lower leg, initial encounter; S80.822A Blister (nonthermal), left lower leg, initial encounter; Z68.39 Body mass index [BMI] 39.0-39.9, adult; Z79.02 Long term (current) use of antithrombotics/antiplatelets; Z79.82 Long term (current) use of aspirin; Z79.84 Long term (current) use of oral hypoglycemic drugs; Z79.899 Other long term (current) drug therapy; Z80.0 Family history of malignant neoplasm of digestive organs; Z85.828 Personal history of other malignant neoplasm of skin; Z87.891 Personal history of nicotine dependence; Z92.21 Personal history of antineoplastic chemotherapy; Z95.1 Presence of aortocoronary bypass graft; Z96.651 Presence of right artificial knee joint
CPT/HCPCS: 96376; 96374; 99285; 36415; 80053; 80048 ×2; 82150; 83690; 85025; 81001; 87324; 87635; 74018; G0378 ×2; J2405 ×2

== ENCOUNTER → 2020-07-31 | Outpatient (CLI) | payer MEDICARE ==
[2020-07-31 19:23] LABS: African American GFR (CKD) 66.7 (60.0-200.0); Anion Gap 13.6 mmol/L (4.00-12.00); BUN/Creat Ratio 34.17 Ratio (12.00-20.00); Calcium 9.6 mg/dL (8.7-10.3); Carbon Dioxide 28.4 mmol/L (21.6-31.8); Non-African American GFR(CKD) 57.6 (60.0-200.0); Potassium 3.6 mmol/L (3.5-5.5)
== END | disposition home or self-care (01) ==
LOC: LABWHC1 11:12
PROVIDERS: ATTEND Internal Medicine
DX: Z51.81 Encounter for therapeutic drug level monitoring (principal)
CPT/HCPCS: 36415; 80048

== ENCOUNTER 2020-08-26 18:18 | Emergency (ER) | payer MEDICARE ==
[2020-08-26 18:22] VITALS: TEMP 98.4
--- NOTE | 2020-08-26 18:36 | ED ---
General Adult HPI - General Chief complaint: ENT Stated complaint: Nose bleeding Time Seen by Provider: 08/26/20 18:25 Source: patient, family Mode of arrival: ambulatory Limitations: no limitations - History of Present Illness Initial comments: Patient presents the ED with his for evaluation. Patient states that he has had intermittent left-sided epistaxis for the past 3 days. Patient states that his epistaxis returned this morning after blowing his nose, but then stopped with external pressure. Patient states that his epistaxis returned ag ain this evening "out of the blue". Patient is on Plavix, and he states that he did take his Plavix dose today. Patient's states that the patient has had issues with epistaxis in the past, and he presents to the ED with a nasal clamp in place. Patient denies trauma or injury, fever or chills, any pain, headache, focal numbness/weakness/neuro deficit, nasal pain, chest pain, cough or cold s ymptoms, dyspnea, dizziness, abdominal pain, nausea or vomiting, or any other symptoms or complaints. - Related Data Home Medications Medication Instructions Recorded Confirmed Pantoprazole [Protonix] 40 mg PO DAILY 06/19/16 07/26/20 allopurinoL [Zyloprim] 300 mg PO DAILY 07/22/16 07/26/20 Metoprolol Tartrate [Lopressor] 150 mg PO BID 10/25/16 07/26/20 Aspirin EC [Ecotrin Low Dose] 81 mg PO DAILY 09/20/18 07/26/20 Cholecalciferol [Vitamin D3 (25 2,000 unit PO DAILY 07/10/19 07/26/20 Mcg = 1000 Iu)] HYDROcodone/APAP 7.5-325MG [[place] 1 tab PO TID PRN 07/10/19 07/26/20 7.5-325] Magnesium Oxide [Magox 400] 400 mg PO DAILY 08/17/19 07/26/20 Melatonin 5 mg PO HS PRN 08/17/19 07/26/20 Turmeric Root Extract [Turmeric] 500 mg PO DAILY 08/17/19 07/26/20 Vitamin B Complex 1 cap PO DAILY 08/29/19 07/26/20 Erythromycin Ophth Oint [Romycin 1 applic BOTH EYES HS 07/26/20 07/26/20 Ophth Oint] Moxifloxacin HCl [Moxifloxacin] 1 drop BOTH EYES Q2H 07/26/20 07/26/20 hydrALAZINE HCL [Apresoline] 50 mg PO BID 07/26/20 07/26/20 sitaGLIPtin [Januvia] 50 mg PO DAILY 07/26/20 07/26/20 Previous Rx's Medication Instructions Recorded Isosorbide Mononitrate ER [Imdur] 60 mg PO DAILY #30 tab 08/19/19 Atorvastatin [Lipitor] 80 mg PO HS #30 tab 09/02/19 Clopidogrel [Plavix] 75 mg PO DAILY #30 tab 09/02/19 Nitroglycerin Sl Tabs [Nitrostat] 0.4 mg SUBLINGUAL Q5M PRN #25 tab 09/02/19 Benzocaine/Menthol [Cepacol Sore 1 each MM QID PRN #30 lozenge 07/28/20 Throat Lozenge] Nystatin 100,000 Unit/ml Susp 4 ml PO QID #100 ml 07/28/20 [Mycostatin Oral Susp] Allergies Allergy/AdvReac Type Severity Reaction Status Date / Time No Known Allergies Allergy Verified 08/26/20 18:22 Review of Systems ROS Statement: Those systems with pertinent positive or pertinent negative responses have been documented in the HPI. ROS Other: All systems not noted in ROS Statement are negative. Past Medical History Past Medical History: Cancer Additional Past Medical History / Comment(s): SKIN CANCER , GOUT CHRONIC BACK,SKIN LESIONS , chemo 09/18/2018, NSTEMI 08/18/2019- with heart caht no stents placed at that time. Last Myocardial Infarction Date:: MAY 2016 History of Any Multi-Drug Resistant Organisms: None Reported, MRSA Date of last positivie culture/infection: 07/22/16 MDRO Source:: LOWER LEGS Past Surgical History: Cholecystectomy, Coronary Bypass/CABG, Heart Catheterization Additional Past Surgical History / Comment(s): PICC line insertion/removed, bilateral caract removals, COLONOSCOPY, EGD, CANCEROUS SKIN LESIONS REMOVED, TOTAL RIGHT KNEE REPLACEMENT, 06-04-16 QUAD BYPASS Past Anesthesia/Blood Transfusion Reactions: Previous Problems w/ Anesthesia Additional Past Anesthesia/Blood Transfusion Reaction / Comment(s): HAD A HARD TIME COMING OUT OF ANESTHESIA AFTER CHOLECYSTECTOMY Past Psychological History: No Psychological Hx Reported Smoking Status: Former smoker Past Alcohol Use History: None Reported Past Drug Use History: None Reported - Past Family History Father Family Medical History: Vascular Disorder Additional Family Medical History / Comment(s): POOR CIRCULATION-HAD AMPUTATIONS D/T POOR CIRCULATION Mother Family Medical History: Cancer Additional Family Medical History / Comment(s): STOMACH CANCER General Exam Limitations: no limitations General appearance: alert, in no apparent distress Head exam: Present: atraumatic, normocephalic Eye exam: Present: normal appearance, EOMI ENT exam: Present: normal oropharynx, mucous membranes moist, other (Left nasal cavity contains a few small blood clots, no active epistaxis is appreciated, I am unable to identify the source of the patient's bleeding) Neck exam: Present: other (Trachea is in midline) Respiratory exam: Present: normal lung sounds bilaterally. Absent: respiratory distress, wheezes, rales, rhonchi, stridor Cardiovascular Exam: Present: regular rate, normal rhythm, normal heart sounds, other (Normal radial pulses bilaterally) GI/Abdominal exam: Present: soft. Absent: tenderness, guarding Neurological exam: Present: alert, oriented X3. Absent: motor sensory deficit Psychiatric exam: Present: normal affect, normal mood Skin exam: Present: warm, dry, intact, normal color Course Vital Signs 08/26/20 08/26/20 18:20 20:25 Temperature 98.4 F Pulse Rate 67 70 Respiratory 20 18 Rate Blood Pressure 193/71 156/75 O2 Sat by Pulse 99 98 Oximetry - Reevaluation(s) Reevaluation #1: 08/26/20 20:27 Patient has not had any active epistaxis while in the ED. Patient's labs are fairly unremarkable. Patient's blood pressure has now improved to 156/75. I have discussed the option to place a nasal packing in the patient's left nasal cavity in hopes to avoid any further bleeding, but patient declines at this time. He states that he will use his nasal clamp and apply external pressure should his epistaxis return, and he was instructed to return to the ED if he is unable to get his bleeding to stop with 30 minutes of pressure. Patient was also instructed to hold his Plavix dose tomorrow. Patient states that he is scheduled to see his primary care provider on Friday (in 2 days). Patient and were counseled about epistaxis, and they were clearly explained return and follow-up instructions. Patient was instructed to have a low threshold for return to the ED. Patient feels comfortable this plan. Medical Decision Making - Lab Data Result diagrams: 08/26/20 19:33 Lab Results 08/26/20 08/26/20 Range/Units 19:33 19:33 WBC 15.9 H (3.8-10.6) k/uL RBC 3.82 L (4.30-5.90) m/uL Hgb 12.6 L (13.0-17.5) gm/dL Hct 36.9 L (39.0-53.0) % MCV 96.6 (80.0-100.0) fL MCH 32.9 (25.0-35.0) pg MCHC 34.1 (31.0-37.0) g/dL RDW 15.1 (11.5-15.5) % Plt Count 392 (150-450) k/uL MPV 7.1 Neutrophils % 79 % Lymphocytes % 12 % Monocytes % 5 % Eosinophils % 2 % Basophils % 1 % Neutrophils # 12.6 H (1.3-7.7) k/uL Lymphocytes # 2.0 (1.0-4.8) k/uL Monocytes # 0.8 (0-1.0) k/uL Eosinophils # 0.3 (0-0.7) k/uL Basophils # 0.1 (0-0.2) k/uL PT 10.1 (9.0-12.0) sec INR 0.9 (<1.2) APTT 25.6 (22.0-30.0) sec Disposition Clinical Impression: Epistaxis Disposition: HOME SELF-CARE Condition: Stable Instructions (If sedation given, give patient instructions): Nosebleed (ED) Additional Instructions: Return to the ER if your nosebleed resumes and you are unable to get it to stop after 30 minutes of pressure. Return to the ER if you develop any significant pain, a fever, chest pain, shortness of breath, feeling dizzy or faint, or new or worsening symptoms. Follow up with your primary care provider on Friday (in 2 days) as scheduled. Is patient prescribed a controlled substance at d/c from ED?: No Referrals: Martinez Yoo MD [Primary Care Provider] - 1-2 days Yair Perez DO [Doctor of Osteopathic Medicine] - 1-2 days Time of Disposition: 20:31
[2020-08-26 19:51] LABS: Basophils # (A) 0.1 k/uL (0-0.2); Basophils % (A) 1 %; Eosinophils # (A) 0.3 k/uL (0-0.7); Eosinophils % (A) 2 %; HCT 36.9 % (39.0-53.0); HGB 12.6 gm/dL (13.0-17.5); Lymphocytes % (A) 12 %; MCH 32.9 pg (25.0-35.0); MCHC 34.1 g/dL (31.0-37.0); MCV 96.6 fL (80.0-100.0); Mean Platelet Volume 7.1; Monocytes # (A) 0.8 k/uL (0-1.0); Monocytes % (A) 5 %; Neutrophils # (A) 12.6 k/uL (1.3-7.7); Neutrophils % (A) 79 %; Platelet Count 392 k/uL (150-450); RBC 3.82 m/uL (4.30-5.90); RDW 15.1 % (11.5-15.5); WBC 15.9 k/uL (3.8-10.6)
[2020-08-26 20:07] LABS: INR 0.9 (<1.2); Partial Thromboplastin Time 25.6 sec (22.0-30.0); Prothrombin Time 10.1 sec (9.0-12.0)
[2020-08-26 20:26] VITALS: BP 156/75; PULSE 70; RESP 18
== END 2020-08-26 20:38 | disposition home or self-care (01) ==
LOC: EC 18:18
DX: R04.0 Epistaxis (principal); M10.9 Gout, unspecified; I25.2 Old myocardial infarction; Z79.899 Other long term (current) drug therapy; Z79.82 Long term (current) use of aspirin; Z79.84 Long term (current) use of oral hypoglycemic drugs; Z87.891 Personal history of nicotine dependence; Z96.651 Presence of right artificial knee joint; Z85.828 Personal history of other malignant neoplasm of skin
CPT/HCPCS: 36415; 85025; 85610; 85730; 99283

== ENCOUNTER → 2020-10-20 | Outpatient (CLI) | payer MEDICARE ==
--- NOTE | 2020-10-23 06:31 | PE ---
EXAMINATION TYPE: PET CT fusion skull to thigh DATE OF EXAM: 10/20/2020 COMPARISON: Prior PET/CT February 18, 2020 and older studies HISTORY: B-cell lymphoma diagnosed approximately 4 years ago. TECHNIQUE: Following the intravenous administration of 9.56 mCi of F-18 FDG, whole body images are p erformed from the skull base to the midthigh. Images are reviewed on the computer in the coronal, ax ial, and sagittal planes. Reconstructed rotating images are created on independent workstation and r eviewed on the computer. A localization and attenuation correction CT is performed in conjunction w ith the PET scan. Blood glucose level equals 126. SCAN: Subsequent Scan FINDINGS: Exam was again suboptimal secondary to patient's large body habitus. Mean SUV mediastinum: 1.33 Main SUV liver: 3.32 SKULL BASE AND NECK: There is new 2.8 x 2.6 cm thin-walled cyst or cystic lesion right submandibular region axial image 46 anterior to right submandibular gland of uncertain etiology is ametabolic. Cor relate clinically. No new areas of abnormal hypermetabolic uptake. CHEST, MEDIASTINUM, AND HILAR REGION: No new areas of abnormal hypermetabolic uptake. ABDOMEN AND PELVIS: Persistent poorly defined mass posterior upper to mid right abdomen near axial im age 89 without increased hypermetabolic uptake. Perhaps mild abnormal hypermetabolic uptake, Max SUV 3.32 on current study. Increased background hypermetabolic uptake noted. No new areas of abnormal hy permetabolic uptake. OSSEOUS STRUCTURES: No new areas of abnormal hypermetabolic uptake. OTHER CT: There is moderate to severe calcified plaque at both carotid bulbs which have medial course is redemonstrated.. There is moderate to severe glenohumeral joint arthropathy bilaterally redemonstrated. Post CABG elizabeth nges with mediastinal clips and sternal wires is redemonstrated. Stable left subclavian Mediport cath eter. Cholecystectomy clips are redemonstrated. Fairly moderate to severe calcified plaque of aorta extending into branch vessels is redemonstrated. There are diverticula suspected in the sigmoid colon. Scattered pelvic phleboliths are noted. Prostate gland is felt enlarged bulging on bladder base, unde rlying BPH is redemonstrated. There is moderate to severe multilevel spurring in the thoracolumbar spine with multilevel disc space narrowing. There is moderate to severe joint space loss in both hips. IMPRESSION: Suboptimal study similar to prior studies. No new or increasing areas of hypermetabolic u ptake to suggest active lymphoma recurrence.
== END | disposition home or self-care (01) ==
LOC: RADPETMAIN 09:32
PROVIDERS: ATTEND Internal Medicine Hematology & Oncology
DX: C83.33 Diffuse large B-cell lymphoma, intra-abdominal lymph nodes (principal)
CPT/HCPCS: 78815; A9552

== ENCOUNTER → 2020-11-01 | Outpatient (CLI) | payer MEDICARE ==
--- NOTE | 2020-11-01 14:54 | US ---
EXAMINATION TYPE: US thyroid st tissue head/neck DATE OF EXAM: 11/01/2020 COMPARISON: PET CLINICAL HISTORY: C83.33, R59.0 LYMPHADENOPATHY. Lymphoma remission. Right neck palpable x last summ er shortly after tooth extraction. Area of concern scanned. Thick walled cystic lesion visualized = 3.4 x 2.7 x 2.5 cm. Contralateral image taken. IMPRESSION: Thick walled cystic mass of uncertain origin. Correlate clinically.
== END | disposition home or self-care (01) ==
LOC: RADUSWWP 13:58
PROVIDERS: ATTEND Internal Medicine Hematology & Oncology
DX: C85.90 Non-Hodgkin lymphoma, unspecified, unspecified site (principal); R22.1 Localized swelling, mass and lump, neck
CPT/HCPCS: 76536

== ENCOUNTER 2020-11-24 06:27 | Day surgery (SDC) | payer MEDICARE ==
[2020-11-21 11:05] VITALS: BMI 38.6
[~2020-11-24 06:27] MED LIST changes: +ACETAMINOPHEN TAB 500 MG TAB PO PRN; +DEXAMETHASONE SOD PHOSPHATE 4 MG/ML 1 ML VIAL IV ONE; +HEPARIN SODIUM,PORCINE/PF 5,000 UNIT/0.5 ML SYRINGE SQ PRN; +LIDOCAINE 1% (10MG/ML) FOR IV START INTRADERMA PRN; +MIDAZOLAM 2 MG/2 ML VIAL IV PRN; +ONDANSETRON 4 MG/2 ML VIAL IVP ONE; +ceFAZolin 3 GM in SODIUM CHLORIDE 0.9% 100 ML IVPB PRN
[2020-11-24] MEDS ORDERED: HYDROmorphone 0.5 MG/0.5 ML SYRINGE IVP PRN (07:00)
[2020-11-24 07:22] LABS: Glucose,Whole Blood 114 mg/dL (75-99)
[2020-11-24] MEDS ORDERED: MIDAZOLAM 2 MG/2 ML VIAL ONE (07:36)
[2020-11-24] MEDS ORDERED: LIDOCAINE 1% INJ 10MG/ML (20 ML MDV) ONE (07:36)
[2020-11-24] MEDS ORDERED: PROPOFOL 10 MG/ML 20 ML VIAL IV ONE (07:36)
[2020-11-24] MEDS ORDERED: fentaNYL (PF) 50 MCG/ML 2 ML AMP ONE (07:36)
[2020-11-24 07:38] VITALS: TEMP 98
[2020-11-24] MEDS ORDERED: LIDOCAINE 1% INJ 10MG/ML (20 ML MDV) SQ ONE (07:41)
--- NOTE | 2020-11-24 07:45 | P.GSHP ---
History of Present Illness H&P Date: 11/24/20 Chief Complaint: lymphoma 80-year-old male here today for Port-A-Cath removal. Port was placed quite some time ago at [facility] for chemotherapy. No longer utilizing the port. No additional complaints. Past Medical History Past Medical History: Cancer, Diabetes Mellitus, Hyperlipidemia, Hypertension, Myocardial Infarction ([place]) Additional Past Medical History / Comment(s): SKIN CANCER , GOUT CHRONIC BACK Pain,SKIN LESIONS , 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 Last Myocardial Infarction Date:: 08/18/19 History of Any Multi-Drug Resistant Organisms: MRSA Date of last positivie culture/infection: 07/22/16 MDRO Source:: LOWER LEGS Past Surgical History: Cholecystectomy, Coronary Bypass/CABG, Heart Catheterization, Joint Replacement Additional Past Surgical History / Comment(s): PICC line insertion/removed, bilateral caract removals, COLONOSCOPY, EGD, CANCEROUS SKIN LESIONS REMOVED, TOTAL RIGHT KNEE REPLACEMENT, 06-04-16 QUAD BYPASS Past Anesthesia/Blood Transfusion Reactions: Previous Problems w/ Anesthesia Additional Past Anesthesia/Blood Transfusion Reaction / Comment(s): HAD A HARD TIME COMING OUT OF ANESTHESIA AFTER CHOLECYSTECTOMY Smoking Status: Former smoker - Past Family History Father Family Medical History: Vascular Disorder Additional Family Medical History / Comment(s): POOR CIRCULATION-HAD AMPUTATIONS D/T POOR CIRCULATION Mother Family Medical History: Cancer Additional Family Medical History / Comment(s): STOMACH CANCER Medications and Allergies Home Medications Medication Instructions Recorded Confirmed Type Pantoprazole [Protonix] 40 mg PO DAILY 06/19/16 11/21/20 History allopurinoL [Zyloprim] 300 mg PO DAILY 07/22/16 11/21/20 History Metoprolol Tartrate [Lopressor] 150 mg PO BID 10/25/16 11/21/20 History Aspirin EC [Ecotrin Low Dose] 81 mg PO DAILY 09/20/18 11/21/20 History Cholecalciferol [Vitamin D3 (25 2,000 unit PO DAILY 07/10/19 11/21/20 History Mcg = 1000 Iu)] HYDROcodone/APAP 7.5-325MG [[place] 1 tab PO BID 07/10/19 11/21/20 History 7.5-325] Magnesium Oxide [Magox 400] 400 mg PO DAILY 08/17/19 11/21/20 History Melatonin 5 mg PO HS PRN 08/17/19 11/21/20 History Turmeric Root Extract [Turmeric] 500 mg PO DAILY 08/17/19 11/21/20 History Isosorbide Mononitrate ER [Imdur] 60 mg PO DAILY #30 tab 08/19/19 11/21/20 Rx Vitamin B Complex 1 cap PO DAILY 08/29/19 11/21/20 History Atorvastatin [Lipitor] 80 mg PO HS #30 tab 09/02/19 11/21/20 Rx Clopidogrel [Plavix] 75 mg PO DAILY #30 tab 09/02/19 11/21/20 Rx Nitroglycerin Sl Tabs [Nitrostat] 0.4 mg SUBLINGUAL Q5M PRN #25 tab 09/02/19 11/21/20 Rx hydrALAZINE HCL [Apresoline] 50 mg PO BID 07/26/20 11/21/20 History sitaGLIPtin [Januvia] 50 mg PO DAILY 07/26/20 11/21/20 History Furosemide [Lasix] 40 mg PO DAILY 11/21/20 11/21/20 History Potacaloride Potassium 10 meq PO DAILY 11/21/20 11/21/20 History metOLazone [Zaroxolyn] 5 mg PO DAILY 11/21/20 11/21/20 History Allergies Allergy/AdvReac Type Severity Reaction Status Date / Time No Known Allergies Allergy Verified 11/24/20 06:53 Surgical - Exam Vital Signs Temp Pulse Resp BP Pulse Ox 98.0 F 58 L 16 148/65 97 11/24/20 07:33 11/24/20 07:33 11/24/20 07:33 11/24/20 07:33 11/24/20 07:33 Physical exam: General: Well-developed, well-nourished HEENT: Normocephalic, sclerae nonicteric Chest: Port present left infraclavicular location Abdomen: Nontender, nondistended Extremities: No edema Neuro: Alert and oriented Results - Labs Abnormal Lab Results - Last 24 Hours (Table) 11/24/20 Range/Units 07:20 POC Glucose (mg/dL) 114 H (75-99) mg/dL Assessment and Plan (1) Lymphoma Narrative/Plan: Will proceed with Port-A-Cath removal at this time. Current Visit: Yes Status: Acute Code(s): C85.90 - NON-HODGKIN LYMPHOMA, UNSPECIFIED, UNSPECIFIED SITE SNOMED Code(s): 740541016
[2020-11-24] MEDS ORDERED: NALOXONE 0.4 MG/ML 1 ML VIAL IV PRN (08:22)
--- NOTE | 2020-11-24 08:23 | P.OP ---
Date of Procedure: 11/24/20 Procedure(s) Performed: PREOPERATIVE DIAGNOSIS: Lymphoma POSTOPERATIVE DIAGNOSIS: Same PROCEDURE: Port-A-Cath removal SURGEON: Karmen EBL: Minimal ANESTHESIA: Sedation COMPLICATIONS: None OPERATIVE PROCEDURE: Patient was placed in the supine position. The patient was sedated per anesthesia that time. The chest was prepped and draped in the usual sterile fashion. The skin was localized with Marcaine solution. The previous incision was re-incised using a scalpel. The port was easily excised using acco mmodation of blunt dissection sharp dissection and electrocautery. The subcutaneous tissues were reapproximated using 3-0 Vicryl sutures. The skin was reapproximated using 4-0 Monocryl sutures. Skin glue was then applied. DISPOSITION: Stable to recovery room
[2020-11-24 08:41] VITALS: BP 120/55; PULSE 55; RESP 20
== END 2020-11-24 09:04 | disposition home or self-care (01) ==
LOC: OR 06:27
PROVIDERS: ATTEND Surgery
DX: Z45.2 Encounter for adjustment and management of vascular access device (principal); C85.90 Non-Hodgkin lymphoma, unspecified, unspecified site; E11.9 Type 2 diabetes mellitus without complications; E78.5 Hyperlipidemia, unspecified; I10 Essential (primary) hypertension; I25.2 Old myocardial infarction; Z85.828 Personal history of other malignant neoplasm of skin; M10.9 Gout, unspecified; G89.29 Other chronic pain; M54.9 Dorsalgia, unspecified; Z92.21 Personal history of antineoplastic chemotherapy; Z86.14 Personal history of Methicillin resistant Staphylococcus aureus infection; Z90.49 Acquired absence of other specified parts of digestive tract; Z95.1 Presence of aortocoronary bypass graft; Z96.651 Presence of right artificial knee joint; Z98.42 Cataract extraction status, left eye; Z98.41 Cataract extraction status, right eye; Z98.890 Other specified postprocedural states; Z87.891 Personal history of nicotine dependence; Z82.49 Family history of ischemic heart disease and other diseases of the circulatory system; Z80.0 Family history of malignant neoplasm of digestive organs; Z79.84 Long term (current) use of oral hypoglycemic drugs; Z79.02 Long term (current) use of antithrombotics/antiplatelets; Z79.82 Long term (current) use of aspirin; Z79.891 Long term (current) use of opiate analgesic; Z79.899 Other long term (current) drug therapy
CPT/HCPCS: 36590; J2250; J1100; J0690; J2405; J2001; J3010; J2704; J1644

== ENCOUNTER → 2021-07-23 | Outpatient (CLI) | payer MEDICARE ==
[2021-07-23 10:51] LABS: ALT 16 U/L (4-49); AST 25 U/L (17-59)
[2021-07-23 15:28] LABS: Chol/HDL Ratio 3.72 Ratio; LDL Cholesterol,Calculated 103.8 mg/dL (0.0-131.0)
== END | disposition home or self-care (01) ==
LOC: LABWHC1 08:44
PROVIDERS: ATTEND Internal Medicine Cardiovascular Disease
DX: E78.2 Mixed hyperlipidemia (principal)
CPT/HCPCS: 36415; 80061; 84450; 84460

== ENCOUNTER → 2021-10-12 | Outpatient (CLI) | payer MEDICARE ==
--- NOTE | 2021-10-13 07:21 | PE ---
EXAMINATION TYPE: PET CT fusion skull to thigh DATE OF EXAM: 10/12/2021 COMPARISON: Prior PET/CT October 30, 2020 and older studies. HISTORY: B cell Lymphoma progress study originally diagnosed 4 years ago. TECHNIQUE: Following the intravenous administration of mCi of F-18 FDG, whole body images are perfor med from the skull base to the midthigh. Images are reviewed on the computer in the coronal, axial, and sagittal planes. Reconstructed rotating images are created on independent workstation and review ed on the computer. A localization and attenuation correction CT is performed in conjunction with t he PET scan. SCAN: Subsequent Scan FINDINGS: Exam is once again again suboptimal secondary to patient's large body habitus. Mean SUV mediastinum: 1.19 Main SUV liver: 2.72 SKULL BASE AND NECK: There is slightly larger 4.0 x 2.8 cm thin-walled cyst or cystic lesion right s ubmandibular region axial image 50 anterior to right submandibular gland of uncertain etiology, mild hypermetabolic uptake along posterior aspect axial image 46 is now noted. Max SUV is 5.3. No additional new areas of abnormal hypermetabolic uptake. CHEST, MEDIASTINUM, AND HILAR REGION: No new areas of abnormal hypermetabolic uptake. ABDOMEN AND PELVIS: Persistent poorly defined mass posterior upper to mid right abdomen near axial im age 89 on current study without new increased hypermetabolic uptake. No new areas of abnormal hypermetabolic uptake. Normal excretion. OSSEOUS STRUCTURES: No new areas of abnormal hypermetabolic uptake. OTHER CT: There is moderate to severe calcified plaque at both carotid bulbs which have medial course is redemonstrated. There is moderate to severe glenohumeral joint arthropathy bilaterally redemonstrated. Post CABG elizabeth nges with mediastinal clips and sternal wires is redemonstrated. Stable left subclavian Mediport cath eter. Cholecystectomy clips are redemonstrated. Fairly moderate to severe calcified plaque of aorta extending into branch vessels is redemonstrated. There are diverticula suspected in the sigmoid colon. Scattered pelvic phleboliths are noted. Prostate gland is felt enlarged bulging on bladder base, unde rlying BPH is redemonstrated. There is moderate to severe multilevel spurring in the thoracolumbar spine with multilevel disc space narrowing. There is moderate to severe joint space loss in both hips. IMPRESSION: Suboptimal study similar to prior studies. Lesion right submandibular level of uncertain etiology redemonstrated as detailed above. It is noted increasing in size with some abnormal hypermet abolic uptake posteriorly. Correlate clinically. Otherwise no new or increasing areas of hypermetabol ic uptake to suggest active lymphoma recurrence.
== END | disposition home or self-care (01) ==
LOC: RADPETMAIN 09:37
PROVIDERS: ATTEND Internal Medicine Hematology & Oncology
DX: C83.30 Diffuse large B-cell lymphoma, unspecified site (principal)
CPT/HCPCS: 78815; A9552

== ENCOUNTER 2021-11-05 08:50 | Day surgery (SDC) | payer MEDICARE ==
--- NOTE | 2021-11-12 07:35 | US ---
ULTRASOUND GUIDED FNA AND CORE BIOPSY right submandibular mass: CLINICAL HISTORY: Right submandibular mass FINDINGS: The procedure was explained to the patient. The risks, complications, benefits and alternatives were discussed and any questions were answered. Informed consent was obtained. Patient was placed supin e on the ultrasound table and prepped and draped in the usual sterile fashion. Utilizing a 25 gauge needle, five passes were made into the right submandibular mass. 18-gauge core biopsy also obtained. Patient was stable throughout the procedure. Pathology is pending. All elements of maximal barrier technique were utilized. IMPRESSION: 1. Successful ultrasound guided FNA and core biopsy.
== END 2021-11-05 10:10 | disposition home or self-care (01) ==
LOC: RADPROMAIN 08:50
PROVIDERS: ATTEND Internal Medicine Hematology & Oncology
DX: C83.33 Diffuse large B-cell lymphoma, intra-abdominal lymph nodes (principal); C85.90 Non-Hodgkin lymphoma, unspecified, unspecified site
CPT/HCPCS: 10005; 38505; 76942; 88173; 88305; 88341; 88342

== ENCOUNTER → 2022-01-03 | Outpatient (CLI) | payer MEDICARE ==
--- NOTE | 2022-01-04 08:37 | CT ---
EXAMINATION TYPE: CT soft tissue neck w con DATE OF EXAM: 01/03/2022 COMPARISON: None HISTORY: swelling to right side of neck CT DLP: 808.5 mGycm CONTRAST: CT scan of the neck is performed with IV Contrast, patient injected with 70cc mL of Isovue 300. Contrast enhanced CT of the neck was performed from the skull base through the lung apices. AIRWAY: The supraglottic, glottic, and subglottic portions of the airway appear patent and free of mass. SALIVARY GLANDS: There is a 4.1 x 3.8 cm mass adjacent to or arising from the right submandibular gla nd with internal focus of air. This could reflect an abscess. Necrotic neoplasm is not excluded. The left submandibular gland and the parotid glands are all within normal limits. No additional masses ar e evident at this time. THYROID GLAND: Nonspecific nodule lower pole right thyroid lobe. LYMPH NODES: No adenopathy seen greater than 1cm. LUNG APICES: No nodule or mass is seen. OTHER: Vascular structures are patent. Severe degenerative change throughout the cervical spine. IMPRESSION: There is a 4.1 x 3.8 cm mass adjacent to or arising from the right submandibular gland with internal focus of air. This could reflect an abscess. Necrotic neoplasm is not excluded.
== END | disposition home or self-care (01) ==
LOC: RADCTMAIN 14:13
PROVIDERS: ATTEND Otolaryngology
DX: R22.1 Localized swelling, mass and lump, neck (principal)
CPT/HCPCS: 82565; 84520; 70491; 36415; Q9967

== ENCOUNTER 2022-01-31 11:50 | Emergency (ER) | payer MEDICARE ==
[2022-01-31 11:55] VITALS: TEMP 98.5
--- NOTE | 2022-01-31 12:20 | ED ---
Male Urogenital HPI - General Chief complaint: Urogenital Stated complaint: urinary issue Time Seen by Provider: 01/31/22 11:57 Source: patient, family, RN notes reviewed Mode of arrival: wheelchair Limitations: no limitations - History of Present Illness Initial comments: This is a 81-year-old male who presents to the emergency department for urinary retention. Patient had a right salivary gland removed on 01/22 at [facility]. He returned on 01/25 to have the drain removed. At that time, he told the provider that he had not urinated in 3 days. He was then evaluated in the emergency department and had a bladder scan revealing urinary retention. A Bosch catheter was subsequently placed. This was removed by Dr. Borjas yesterday. He was told that if he did not urinate within 12 hours after removal that he should return to the emergency department. At this point, the patient states it has been approximately 20 hours. He is dribbling but not having a steady urine stream. Also states that he has significant pressure in the abdomen and urinary urgency. He does have a follow-up scheduled with Dr. Borjas on 02/06. 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 Radiation and chemotherapy are pending. Denies any fevers, chills, sore throat, cough, dyspnea, chest pain, palpitations, abdominal pain, nausea, vomiting, diarrhea, back pain, or headaches. MD Complaint: other (urinary retention) - Related Data Home Medications Medication Instructions Recorded Confirmed Pantoprazole [Protonix] 40 mg PO DAILY 06/19/16 10/24/21 allopurinoL [Zyloprim] 300 mg PO DAILY 07/22/16 10/24/21 Metoprolol Tartrate [Lopressor] 150 mg PO BID 10/25/16 10/24/21 Aspirin EC [Ecotrin Low Dose] 81 mg PO DAILY 09/20/18 10/24/21 Cholecalciferol [Vitamin D3 (25 2,000 unit PO DAILY 07/10/19 10/24/21 Mcg = 1000 Iu)] HYDROcodone/APAP 7.5-325MG [Pettibone 1 tab PO BID 07/10/19 10/24/21 7.5-325] Magnesium Oxide [Magox 400] 400 mg PO DAILY 08/17/19 10/24/21 Melatonin 5 mg PO HS PRN 08/17/19 10/24/21 Turmeric Root Extract [Turmeric] 500 mg PO DAILY 08/17/19 10/24/21 Vitamin B Complex 1 cap PO DAILY 08/29/19 10/24/21 hydrALAZINE HCL [Apresoline] 50 mg PO BID 07/26/20 10/24/21 sitaGLIPtin [Januvia] 50 mg PO DAILY 07/26/20 10/24/21 metOLazone [Zaroxolyn] 5 mg PO DAILY 11/21/20 10/24/21 Ezetimibe [Zetia] 10 mg PO DAILY 10/24/21 10/24/21 Previous Rx's Medication Instructions Recorded Isosorbide Mononitrate ER [Imdur] 60 mg PO DAILY #30 tab 08/19/19 Atorvastatin [Lipitor] 80 mg PO HS #30 tab 09/02/19 Clopidogrel [Plavix] 75 mg PO DAILY #30 tab 09/02/19 Nitroglycerin Sl Tabs [Nitrostat] 0.4 mg SUBLINGUAL Q5M PRN #25 tab 09/02/19 HYDROcodone/APAP 5-325MG [Pettibone 1 tab PO Q6HR PRN 3 Days #12 tab 01/31/22 5-325] Tamsulosin [Flomax] 0.4 mg PO DAILY #20 cap 01/31/22 Allergies Allergy/AdvReac Type Severity Reaction Status Date / Time No Known Allergies Allergy Verified 01/31/22 11:55 Review of Systems ROS Statement: Those systems with pertinent positive or pertinent negative responses have been documented in the HPI. ROS Other: All systems not noted in ROS Statement are negative. 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 Last Myocardial Infarction Date:: 08/18/19 History of Any Multi-Drug Resistant Organisms: MRSA Date of last positivie culture/infection: 07/22/16 MDRO Source:: LOWER LEGS Past Surgical History: Cholecystectomy, Coronary Bypass/CABG, Heart Catheterization, Joint Replacement Additional Past Surgical History / Comment(s): PICC line insertion/removed, bilateral caract removals, COLONOSCOPY, EGD, CANCEROUS SKIN LESIONS REMOVED, TOTAL RIGHT KNEE REPLACEMENT, 06-04-16 QUAD BYPASS Past Anesthesia/Blood Transfusion Reactions: Previous Problems w/ Anesthesia Additional Past Anesthesia/Blood Transfusion Reaction / Comment(s): HAD A HARD TIME COMING OUT OF ANESTHESIA AFTER CHOLECYSTECTOMY Past Psychological History: No Psychological Hx Reported Smoking Status: Former smoker Past Alcohol Use History: None Reported Past Drug Use History: None Reported - Past Family History Father Family Medical History: Vascular Disorder Additional Family Medical History / Comment(s): POOR CIRCULATION-HAD AMPUTATIONS D/T POOR CIRCULATION Mother Family Medical History: Cancer Additional Family Medical History / Comment(s): STOMACH CANCER General Exam Limitations: no limitations General appearance: alert, in no apparent distress Head exam: Present: atraumatic, normocephalic, normal inspection Respiratory exam: Present: normal lung sounds bilaterally. Absent: respiratory distress, wheezes, rales, rhonchi, stridor Cardiovascular Exam: Present: regular rate, normal rhythm, normal heart sounds. Absent: systolic murmur, diastolic murmur, rubs, gallop, clicks GI/Abdominal exam: Present: distended, normal bowel sounds. Absent: tenderness Neurological exam: Present: alert, oriented X3, CN II-XII intact Psychiatric exam: Present: normal affect, normal mood Skin exam: Present: warm, dry, intact, normal color. Absent: rash Course Vital Signs 01/31/22 11:52 Temperature 98.5 F Pulse Rate 102 H Respiratory 20 Rate Blood Pressure 168/74 O2 Sat by Pulse 96 Oximetry Medical Decision Making - Medical Decision Making This is a 81-year-old male who presents to the emergency department for urinary retention. Bladder scan reveals greater than 999 mL of urine. Bosch catheter was placed. 1200 mL removed initially and the bag has continued to fill. UA reveals no signs of an infection. Ultrasound did not reveal any obvious signs of obstruction, however due to the patient's body habitus, this was not able to visualize patient's bladder or prostate. Patient will be discharged with the Bosch catheter. Prescription for Flomax provided as well. Advised to begin taking this once daily with the largest meal the day. The patient does have a lot of irritation around the urethral meatus from the previous Bosch catheter insertion, which was noted to be very traumatic. The removal and subsequent reinsertion here today has further exacerbated that pain. Short-term course of Pettibone provided. Also instructed him to contact Dr. Borjas's office to let them know about today's ER visit, and ask if he would like them to follow up in the office any sooner. Return precautions reviewed in depth, the patient is instructed to return to the emergency department with any new, worsening, or concerning symptoms. Patient verbalized understanding. This case was discussed in detail with the attending ED physician. Presentation, findings, and treatment plan discussed in detail as well. - Lab Data Lab Results 01/31/22 Range/Units 12:40 Urine Color Light Yellow Urine Appearance Clear (Clear) Urine pH 7.0 (5.0-8.0) Ur Specific [place] 1.009 (1.001-1.035) Urine Protein 1+ H (Negative) Urine Glucose (UA) Negative (Negative) Urine Ketones Negative (Negative) Urine Blood Small H (Negative) Urine Nitrite Negative (Negative) Urine Bilirubin Negative (Negative) Urine Urobilinogen <2.0 (<2.0) mg/dL Ur Leukocyte Esterase Negative (Negative) Urine RBC 28 H (0-5) /hpf Urine WBC 1 (0-5) /hpf Hyaline Casts 1 (0-2) /lpf - Radiology Data Radiology results: report reviewed, image reviewed Disposition Clinical Impression: Urinary retention Disposition: HOME SELF-CARE Instructions (If sedation given, give patient instructions): Urinary Retention in Men (ED), Bosch Catheter Placement and Care (ED) Additional Instructions: Return to the emergency department with any new, worsening, or concerning sympt oms. Take the Flomax each day with your largest meal of the day. Contact Dr. Borjas's office regarding your visit today and see if he wants you to make a sooner appointment, otherwise follow up as scheduled. Take the Pettibone sparingly when the pain is the most severe, and otherwise take the Tylenol. Prescriptions: Tamsulosin [Flomax] 0.4 mg PO DAILY #20 cap HYDROcodone/APAP 5-325MG [Pettibone 5-325] 1 tab PO Q6HR PRN 3 Days #12 tab PRN Reason: Pain Is patient prescribed a controlled substance at d/c from ED?: Yes When asked, does pt state using other controlled substances?: No If prescribed controlled substance>3 days was MAPS reviewed?: Prescribed <3 Days Referrals: Carlos Gallagher MD [Primary Care Provider] - 1-2 days
[2022-01-31] MEDS ORDERED: HYDROcodone/APAP 5-325MG 1 EACH TAB PO STA (12:42)
[2022-01-31 12:52] LABS: Appearance,Urine Clear (Clear); Bilirubin,Urine Negative (Negative); Blood,Urine Small (Negative); Color,Urine Light Yellow; Glucose,Urine (UA) Negative (Negative); Hyaline Casts,Urine 1 /lpf (0-2); Ketones,Urine Negative (Negative); Leukocyte Esterase,Urine Negative (Negative); Nitrite,Urine Negative (Negative); Protein,Urine 1+ (Negative); RBC,Urine 28 /hpf (0-5); Specific Gravity,Urine 1.009 (1.001-1.035); Urobilinogen,Urine <2.0 mg/dL (<2.0); WBC,Urine 1 /hpf (0-5)
--- NOTE | 2022-01-31 14:05 | US ---
EXAMINATION TYPE: US kidneys/renal and bladder DATE OF EXAM: 01/31/2022 COMPARISON: NONE CLINICAL HISTORY: Urinary retention. EXAM MEASUREMENTS: Right Kidney: 10.9 x 5.9 x 5.0 cm Left Kidney: 12.9 x 6.2 x 5.4 cm 300lb patient, severe technical difficulties, very limited visualization. Right Kidney: lower pole not seen, measures smaller than left but this may be due to technical diffi culty, no obvious mass or hydro Left Kidney: lobular, limited views, no hydro, possible superior cyst measuring 1.3 x 2.0 x 2.0. Bladder: not seen There is no evidence for hydronephrosis at this point in time. No nephrolithiasis is seen. No nadia s are identified. The urinary bladder is anechoic. Bilateral ureteral jets are seen. IMPRESSION: Limited exam without gross evidence for obstructive uropathy.
[2022-01-31 15:08] VITALS: BP 186/73; PULSE 56; RESP 16
== END 2022-01-31 15:10 | disposition home or self-care (01) ==
LOC: EC 11:50
DX: R33.9 Retention of urine, unspecified (principal); E11.9 Type 2 diabetes mellitus without complications; I10 Essential (primary) hypertension; E78.5 Hyperlipidemia, unspecified; I25.2 Old myocardial infarction; Z87.891 Personal history of nicotine dependence; Z79.82 Long term (current) use of aspirin; Z79.899 Other long term (current) drug therapy; Z79.84 Long term (current) use of oral hypoglycemic drugs
CPT/HCPCS: 51702; 51798; 76770; 81001; 99284

== ENCOUNTER → 2022-08-12 | Outpatient (CLI) | payer MEDICARE ==
[2022-08-12 11:50] LABS: ALT 22 U/L (4-49); AST 30 U/L (17-59)
[2022-08-12 21:20] LABS: Chol/HDL Ratio 2.23 Ratio; LDL Cholesterol,Calculated 41.3 mg/dL (0.0-131.0); VLDL Calculation 11.78 mg/dL (5.00-40.00)
== END | disposition home or self-care (01) ==
LOC: LABT 08:59
PROVIDERS: ATTEND Nurse Practitioner Family
DX: E78.2 Mixed hyperlipidemia (principal)
CPT/HCPCS: 80061; 84450; 84460

== ENCOUNTER → 2022-10-25 | Outpatient (CLI) | payer MEDICARE ==
--- NOTE | 2022-10-25 14:25 | CT ---
EXAMINATION TYPE: CT abdomen pelvis w con CT DLP: 4582.4 mGycm, Automated exposure control for dose reduction was used. DATE OF EXAM: 10/25/2022 1:30 PM COMPARISON: PET/CT 10/12/2021 , renal ultrasound 01/31/2022, CT chest abdomen 07/22/2017. CLINICAL INDICATION:Male, 82 years old with history of C83.33; F/U on lymphoma TECHNIQUE: Standard CT of the abdomen and pelvis following the administration of 100 cc of Isovue 3 00 IV contrast material and oral contrast. Coronal and sagittal reformats were performed. FINDINGS: LOWER CHEST: Visualized lungs are clear. Dilation of the main pulmonary artery measuring up to 3.9 cm which can be seen in the setting of pulmonary arterial hypertension. Moderate coronary artery calcif ications. No pericardial effusion. ABDOMEN LIVER: Unremarkable GALLBLADDER AND BILE DUCTS: The gallbladder is surgically absent. PANCREAS: Unremarkable. SPLEEN: Unremarkable. ADRENAL GLANDS: Unremarkable. KIDNEYS AND URETERS: No evidence of hydronephrosis or renal calculus. The enhance symmetrically. Nons pecific bilateral perinephric fat stranding. Left renal cyst. Prominent left extra renal pelvis. PELVIS BLADDER: Incompletely distended but grossly unremarkable. REPRODUCTIVE: Prostate is enlarged in size measuring 6.4 cm in transverse dimension. ABDOMEN & PELVIS STOMACH AND BOWEL: Stomach and duodenum are unremarkable. The appendix is within normal limits. Enter ic contrast reaches the mid small bowel. Distal colonic diverticulosis without evidence for acute div erticulitis. No evidence of bowel obstruction. PERITONEUM: No evidence of pneumoperitoneum or free fluid. VASCULATURE: Moderate atherosclerotic calcifications are present throughout the abdominal aorta and i ts branches. No evidence of aortic aneurysm. MUSCULOSKELETAL: No acute osseous abnormalities. Partial visualization of median sternotomy wires. No aggressive osseous lesion. Moderate multilevel degenerative disc disease of the visualized spine. Mi ld retrolisthesis of L2 on L3 and L3 on L4. LYMPH NODES: There is less solid appearance with fat stranding demonstrated within the mesentery at p revious lymphoma site. Adjacent small stable lymph nodes identified. SOFT TISSUE/ABDOMINAL WALL: Inferior ventral wall hernia containing a portion of nonobstructive colon . IMPRESSION: Less solid appearance with stranding identified at previous site of mesenteric mass corresponding to known lymphoma. This is favored to represent positive treatment response. Continued follow-up is ofelia mmended. No new lymphadenopathy.
== END | disposition home or self-care (01) ==
LOC: RADCTMAIN 10:19
PROVIDERS: ATTEND Internal Medicine Hematology & Oncology
DX: C83.33 Diffuse large B-cell lymphoma, intra-abdominal lymph nodes (principal)
CPT/HCPCS: 82565; 84520; 74177; 36415; Q9967

== ENCOUNTER 2022-11-28 17:53 | Observation (INO) | payer MEDICARE ==
--- NOTE | 2022-11-28 19:25 | ED ---
General Adult HPI - General Source: patient, family, RN notes reviewed Mode of arrival: wheelchair <Linda Kim - Last Filed: 11/28/22 19:23> <Gerson Yen - Last Filed: 11/29/22 00:16> - General Chief complaint: Recheck/Abnormal Lab/Rx Stated complaint: sent by DR ascencio CHF Time Seen by Provider: 11/28/22 19:23 - History of Present Illness Initial comments: Patient is an 82 year old male who presents to the emergency department for possible CHF exacerbation. Patient apparently sent by the wound clinic for weeping legs. Patient feels a little short of breath. No chest pain. (Linda Kim) Patient is an 82-year-old male presenting with chief complaint of swelling to the lower extremities. Patient states that he has had worsening edema as well as shortness of breath ongoing for a few days. He notes that shortness of breath is worse with exertion. He denies any chest pain or palpitations. No cough, congestion, sore throat, fever, chills. He was recently seen by graphic manager Dr. Alba who advised that he report to the ER and be evaluated for congestive heart failure due to his significant lower extremity edema and weeping from the legs. (Gerson Yen) - Related Data Home Medications Medication Instructions Recorded Confirmed allopurinoL [Zyloprim] 300 mg PO DAILY 07/22/16 11/28/22 Metoprolol Tartrate [Lopressor] 150 mg PO BID 10/25/16 11/28/22 Aspirin EC [Ecotrin Low Dose] 81 mg PO DAILY 09/20/18 11/28/22 HYDROcodone/APAP 7.5-325MG [[place] 1 tab PO BID 07/10/19 11/28/22 7.5-325] Magnesium Oxide [Magox 400] 400 mg PO DAILY 08/17/19 11/28/22 Turmeric Root Extract [Turmeric] 500 mg PO DAILY 08/17/19 11/28/22 Vitamin B Complex 1 cap PO DAILY 08/29/19 11/28/22 hydrALAZINE HCL [Apresoline] 50 mg PO BID 07/26/20 11/28/22 sitaGLIPtin [Januvia] 50 mg PO DAILY 07/26/20 11/28/22 metOLazone [Zaroxolyn] 5 mg PO DAILY 11/21/20 11/28/22 Ezetimibe [Zetia] 10 mg PO DAILY 10/24/21 11/28/22 Albuterol Inhaler [Ventolin Hfa 2 puff INHALATION RT-Q6H PRN 11/28/22 11/28/22 Inhaler] Atorvastatin [Lipitor] 80 mg PO DAILY 11/28/22 11/28/22 Cholecalciferol [Vitamin D3 (25 50 mcg PO DAILY 11/28/22 11/28/22 Mcg = 1000 Iu)] Diclofenac Sodium Gel [Voltaren 2 gm TOPICAL QID PRN 11/28/22 11/28/22 Gel] Levothyroxine Sodium [Synthroid] 88 mcg PO DAILY 11/28/22 11/28/22 Silver Sulfadiazine [SSD 1% Cream] 1 applic TOPICAL BID PRN 11/28/22 11/28/22 Tamsulosin [Flomax] 0.4 mg PO BID 11/28/22 11/28/22 Previous Rx's Medication Instructions Recorded Isosorbide Mononitrate ER [Imdur] 60 mg PO DAILY #30 tab 08/19/19 Nitroglycerin Sl Tabs [Nitrostat] 0.4 mg SUBLINGUAL Q5M PRN #25 tab 09/02/19 Allergies Allergy/AdvReac Type Severity Reaction Status Date / Time No Known Allergies Allergy Verified 11/28/22 21:34 Review of Systems ROS Other: All systems not noted in ROS Statement are negative. <Linda Kim - Last Filed: 11/28/22 19:23> ROS Other: All systems not noted in ROS Statement are negative. <Gerson Yen - Last Filed: 11/29/22 00:16> ROS Statement: Those systems with pertinent positive or pertinent negative responses have been documented in the HPI. Past Medical History Past Medical History: Cancer, Diabetes Mellitus, Hyperlipidemia, Hypertension, Myocardial Infarction ([place]) Additional Past Medical History / Comment(s): SKIN CANCER , GOUT CHRONIC BACK Pain,SKIN LESIONS , 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 Last Myocardial Infarction Date:: 08/18/19 History of Any Multi-Drug Resistant Organisms: MRSA Date of last positivie culture/infection: 07/22/16 MDRO Source:: LOWER LEGS Past Surgical History: Cholecystectomy, Coronary Bypass/CABG, Heart Catheterization, Joint Replacement Additional Past Surgical History / Comment(s): PICC line insertion/removed, bilateral caract removals, COLONOSCOPY, EGD, CANCEROUS SKIN LESIONS REMOVED, TOTAL RIGHT KNEE REPLACEMENT, 06-04-16 QUAD BYPASS Past Anesthesia/Blood Transfusion Reactions: Previous Problems w/ Anesthesia Additional Past Anesthesia/Blood Transfusion Reaction / Comment(s): HAD A HARD TIME COMING OUT OF ANESTHESIA AFTER CHOLECYSTECTOMY Past Psychological History: No Psychological Hx Reported Smoking Status: Former smoker Past Alcohol Use History: None Reported Past Drug Use History: None Reported - Past Family History Father Family Medical History: Vascular Disorder Additional Family Medical History / Comment(s): POOR CIRCULATION-HAD AMPUTATIONS D/T POOR CIRCULATION Mother Family Medical History: Cancer Additional Family Medical History / Comment(s): STOMACH CANCER <Linda Kim - Last Filed: 11/28/22 19:23> General Exam <Linda Kim - Last Filed: 11/28/22 19:23> Limitations: no limitations General appearance: alert, in no apparent distress Head exam: Present: atraumatic, normocephalic, normal inspection Eye exam: Present: normal appearance, EOMI. Absent: scleral icterus, per iorbital swelling Neck exam: Present: normal inspection, full ROM Respiratory exam: Present: normal lung sounds bilaterally. Absent: respiratory distress, wheezes, rales, rhonchi, stridor Cardiovascular Exam: Present: regular rate, normal rhythm, normal heart sounds. Absent: systolic murmur, diastolic murmur, rubs, gallop, clicks Extremities exam: Present: pedal edema Neurological exam: Present: alert, oriented X3, CN II-XII intact Psychiatric exam: Present: normal affect, normal mood Skin exam: Present: warm, dry, intact, normal color. Absent: rash <Gerson Yen - Last Filed: 11/29/22 00:16> - General Exam Comments Initial Comments: Visual Physical Exam Vital signs reviewed General: Well-appearing, nontoxic, no acute distress. Head: Normocephalic, atraumatic Eyes: PERRLA, EOMI ENT: Airway patent Chest: Nonlabored breathing Skin: No visual rash, normal skin tone Neuro: Alert and oriented 3 Musculoskeletal: No gross abnormalities (Linda Kim) Course Vital Signs 11/28/22 11/28/22 11/28/22 18:42 20:23 21:12 Temperature 98 F 97.7 F Pulse Rate 50 L 58 L 64 Respiratory 18 18 18 Rate Blood Pressure 157/65 188/85 186/72 O2 Sat by Pulse 95 98 94 L Oximetry 11/28/22 11/28/22 22:13 22:40 Temperature Pulse Rate 50 L 55 L Respiratory 20 Rate Blood Pressure 181/67 O2 Sat by Pulse 94 L Oximetry EKG Findings - EKG Comments: EKG Findings:: Sinus rhythm ventricular rate 64. CA interval 199. QRS 105. QT 412. QTc 422. Left axis deviation. No ischemic changes. <Gerson Yen - Last Filed: 11/29/22 00:16> Medical Decision Making - Lab Data Result diagrams: 11/28/22 19:15 11/28/22 19:15 <Gerson Yen - Last Filed: 11/29/22 00:16> - Medical Decision Making Was pt. sent in by a medical professional or institution (, PA, COMPENSATION AND BENEFITS ANALYST, urgent care, hospital, or fpc...) When possible be specific @ -Patient sent by his graphic manager Did you speak to anyone other than the patient for history (EMS, parent, family, police, friend...)? What history was obtained from this source @ -No Did you review nursing and triage notes (agree or disagree)? Why? @ -I reviewed and agree with nursing and triage notes Were old charts reviewed (outside hosp., previous admission, EMS record, old EKG, old radiological studies, urgent care reports/EKG's, fpc records)? Report findings @ -No old charts were reviewed Differential Diagnosis (chest pain, altered mental status, abdominal pain women, abdominal pain men, vaginal bleeding, weakness, fever, dyspnea, syncope, headache, dizziness, GI bleed, back pain, seizure, CVA, palpatations, mental health, musculoskeletal)? @ -MDM Differential Dyspnea: Coronary syndrome, arrhythmia, tamponade, asthma, COPD, pulmonary embolism, pneumonia, pneumothorax, pulmonary effusion, anaphylaxis, diabetic ketoacidosis, flailed chest, pulmonary contusion, diaphragmatic rupture, anemia, neuromuscular this is not meant to be an all-inclusive list. EKG interpreted by me (3pts min.). @ -As above X-rays interpreted by me (1pt min.). @ -Chest x-ray shows no acute process CT interpreted by me (1pt min.). @ -None done U/S interpreted by me (1pt. min.). @ -None done What testing was considered but not performed or refused? (CT, X-rays, U/S, labs)? Why? @ -None What meds were considered but not given or refused? Why? @ -None Did you discuss the management of the patient with other professionals (professionals i.e. , PA, COMPENSATION AND BENEFITS ANALYST, lab, RT, psych nurse, social staff worker, director asset, teacher, commercial loan collection officer, case finisher)? Give summary @ -I spoke with Yumiko from [facility] hospitalist group accepted admission of this patient Was smoking cessation discussed for >3mins.? @ -No Was critical care preformed (if so, how long)? @ -No Were there social determinants of health that impacted care today? How? (Homelessness, low income, unemployed, alcoholism, drug addiction, transportation, low edu. Level, literacy, decrease access to med. care, [facility], rehab)? @ -No Was there de-escalation of care discussed even if they declined (Discuss DNR or withdrawal of care, Hospice)? DNR status @ -No What co-morbidities impacted this encounter? (DM, HTN, Smoking, COPD, CAD, Cancer, CVA, ARF, Chemo, Hep., AIDS, mental health diagnosis, sleep apnea, morbid obesity)? @ -Diabetes, hypertension, hyperlipidemia, history of OR Was patient admitted / discharged? Hospital course, mention meds given and route, prescriptions, significant lab abnormalities, going to OR and other pertinent info. @ -Patient is an 82-year-old male presenting with chief complaint of shortness of breath on exertion and lower extremity swelling. Sent here by his graphic manager. On physical examination there is a significant lower extremity edema. No respiratory distress at rest, however patient states with mild e xertion he becomes quite winded. Lab work shows WBC 11.4. BNP is 3380. Troponin is negative. Chest x-ray shows no acute process. Given the patient's BNP and clinical presentation we will admit and treat for CHF exacerbation. He is given 40 mg of Lasix. Spoke with Yumiko from [facility] hospitalist group accepted admission. Patient is agreeable with this plan. I discussed this case with my attending Dr. Sanabria Undiagnosed new problem with uncertain prognosis? @ -No Drug Therapy requiring intensive monitoring for toxicity (Heparin, Nitro, Insulin, Cardizem)? @ -No Were any procedures done? @ -No Diagnosis/symptom? @ -CHF Acute, or Chronic, or Acute on Chronic? @ -Acute Uncomplicated (without systemic symptoms) or Complicated (systemic symptoms)? @ -Complicated Side effects of treatment? @ -No Exacerbation, Progression, or Severe Exacerbation? @ -Exacerbation Poses a threat to life or bodily function? How? (Chest pain, [place], OR, pneumonia, PE, COPD, DKA, ARF, appy, cholecystitis, CVA, Diverticulitis, Homicidal, Suicidal, threat to staff... and all critical care pts) @ -Yes (Gerson Yen) - Lab Data Lab Results 11/28/22 11/28/22 11/28/22 Range/Units 19:15 19:15 19:15 WBC 11.4 H (3.8-10.6) k/uL RBC 3.63 L (4.30-5.90) m/uL Hgb 13.1 (13.0-17.5) gm/dL Hct 36.1 L (39.0-53.0) % MCV 99.4 (80.0-100.0) fL MCH 36.2 H (25.0-35.0) pg MCHC 36.4 (31.0-37.0) g/dL RDW 14.1 (11.5-15.5) % Plt Count (150-450) k/uL MPV 9.3 Neutrophils % 76 % Lymphocytes % 11 % Monocytes % 11 % Eosinophils % 2 % Basophils % 0 % Neutrophils # 8.6 H (1.3-7.7) k/uL Lymphocytes # 1.2 (1.0-4.8) k/uL Monocytes # 1.2 H (0-1.0) k/uL Eosinophils # 0.2 (0-0.7) k/uL Basophils # 0.0 (0-0.2) k/uL Manual Slide Review Performed Sodium 135 L (137-145) mmol/L Potassium 4.2 (3.5-5.1) mmol/L Chloride 97 L (98-107) mmol/L Carbon Dioxide 28 (22-30) mmol/L Anion Gap 10 mmol/L BUN 27 H (9-20) mg/dL Creatinine 1.08 (0.66-1.25) mg/dL Est GFR (CKD-EPI)AfAm 75 (>60 ml/min/1.73 sqM) Est GFR (CKD-EPI)NonAf 64 (>60 ml/min/1.73 sqM) Glucose 110 H (74-99) mg/dL Plasma Lactic Acid Paul 1.0 (0.7-2.0) mmol/L Calcium 8.8 (8.4-10.2) mg/dL Total Bilirubin 0.8 (0.2-1.3) mg/dL AST 31 (17-59) U/L ALT 26 (4-49) U/L Alkaline Phosphatase 116 (38-126) U/L Troponin I (0.000-0.034) ng/mL NT-Pro-B Natriuret Pep pg/mL Total Protein 6.6 (6.3-8.2) g/dL Albumin 4.2 (3.5-5.0) g/dL 11/28/22 11/28/22 Range/Units 19:15 21:55 WBC (3.8-10.6) k/uL RBC (4.30-5.90) m/uL Hgb (13.0-17.5) gm/dL Hct (39.0-53.0) % MCV (80.0-100.0) fL MCH (25.0-35.0) pg MCHC (31.0-37.0) g/dL RDW (11.5-15.5) % Plt Count (150-450) k/uL MPV Neutrophils % % Lymphocytes % % Monocytes % % Eosinophils % % Basophils % % Neutrophils # (1.3-7.7) k/uL Lymphocytes # (1.0-4.8) k/uL Monocytes # (0-1.0) k/uL Eosinophils # (0-0.7) k/uL Basophils # (0-0.2) k/uL Manual Slide Review Sodium (137-145) mmol/L Potassium (3.5-5.1) mmol/L Chloride (98-107) mmol/L Carbon Dioxide (22-30) mmol/L Anion Gap mmol/L BUN (9-20) mg/dL Creatinine (0.66-1.25) mg/dL Est GFR (CKD-EPI)AfAm (>60 ml/min/1.73 sqM) Est GFR (CKD-EPI)NonAf (>60 ml/min/1.73 sqM) Glucose (74-99) mg/dL Plasma Lactic Acid Paul (0.7-2.0) mmol/L Calcium (8.4-10.2) mg/dL Total Bilirubin (0.2-1.3) mg/dL AST (17-59) U/L ALT (4-49) U/L Alkaline Phosphatase (38-126) U/L Troponin I <0.012 (0.000-0.034) ng/mL NT-Pro-B Natriuret Pep 3380 pg/mL Total Protein (6.3-8.2) g/dL Albumin (3.5-5.0) g/dL Disposition <Linda Kim - Last Filed: 11/28/22 19:23> Time of Disposition: 23:54 <Gerson Yen - Last Filed: 11/29/22 00:16> Clinical Impression: CHF (congestive heart failure) Disposition: ADMITTED IP TO THIS HOSP Condition: Fair Referrals: Crow Caceres DO [Primary Care Provider] - 1-2 days
--- NOTE | 2022-11-28 19:42 | XR ---
EXAMINATION TYPE: XR chest 2V DATE OF EXAM: 11/28/2022 7:30 PM COMPARISON: Chest radiographs from 10/11/2019 TECHNIQUE: XR chest 2V Frontal and lateral views of the chest. CLINICAL INDICATION:Male, 82 years old with history of sob; FINDINGS: Lungs/Pleura: Bibasilar atelectasis. No evidence for pneumothorax, pleural effusion or focal consolid ation. Pulmonary vascularity: Unremarkable. Heart/mediastinum: Cardiomediastinal silhouette is unremarkable. Atherosclerotic calcifications are seen in the aorta. Musculoskeletal: No acute osseous pathology. Midline sternotomy wires are noted. Other findings: None IMPRESSION: No acute cardiopulmonary disease/process.
[2022-11-28 19:45] LABS: Albumin 4.2 g/dL (3.5-5.0); Calcium 8.8 mg/dL (8.4-10.2); Potassium 4.2 mmol/L (3.5-5.1); Total Bilirubin 0.8 mg/dL (0.2-1.3); Total Protein 6.6 g/dL (6.3-8.2)
[2022-11-28 20:05] LABS: Basophils % (A) 0 %; Eosinophils # (A) 0.2 k/uL (0-0.7); Eosinophils % (A) 2 %; HCT 36.1 % (39.0-53.0); HGB 13.1 gm/dL (13.0-17.5); Lymphocytes # (A) 1.2 k/uL (1.0-4.8); Lymphocytes % (A) 11 %; MCH 36.2 pg (25.0-35.0); MCHC 36.4 g/dL (31.0-37.0); MCV 99.4 fL (80.0-100.0); Mean Platelet Volume 9.3; Monocytes # (A) 1.2 k/uL (0-1.0); Monocytes % (A) 11 %; Neutrophils # (A) 8.6 k/uL (1.3-7.7); Neutrophils % (A) 76 %; RBC 3.63 m/uL (4.30-5.90); RDW 14.1 % (11.5-15.5); WBC 11.4 k/uL (3.8-10.6)
[2022-11-28] MEDS ORDERED: METOPROLOL TARTRATE 50 MG TAB PO STA ×2 (20:58)
[2022-11-28] MEDS ORDERED: hydrALAZINE HCL 50 MG TAB PO STA (20:58)
[2022-11-28] MEDS ORDERED: NALOXONE 0.4 MG/ML 1 ML VIAL IV PRN (23:52)
[2022-11-28] MEDS ORDERED: NITROGLYCERIN SL TABS 0.4 MG TAB SUBLINGUAL PRN (23:54)
[2022-11-28] MEDS ORDERED: DICLOFENAC SODIUM GEL 100 GM TUBE TOPICAL PRN (23:54)
[2022-11-28] MEDS ORDERED: ALBUTEROL NEBULIZED 2.5 MG/3 ML INHALATION PRN (23:54)
[2022-11-29] MEDS ORDERED: FUROSEMIDE 10 MG/ML 4 ML VIAL IV STA (00:11)
[2022-11-29 04:12] LABS: Prothrombin Time 10.8 sec (9.0-12.0)
[2022-11-29] MEDS ORDERED: hydrALAZINE HCL 50 MG TAB PO SCH (09:00)
[2022-11-29] MEDS ORDERED: METOPROLOL TARTRATE 50 MG TAB PO SCH (09:00)
[2022-11-29] MEDS ORDERED: NON FORMULARY DRUG (Vitamin B Complex [Vitamin B Complex] 1 EACH Capsule) PO SCH (09:00)
[2022-11-29] MEDS: hydrALAZINE HCL 50 MG TAB PO SCH ×2 (09:01→16:53)
[2022-11-29] MEDS: MAGNESIUM OXIDE 400 MG TAB PO SCH (09:02)
[2022-11-29] MEDS: LINAGLIPTIN 5 MG TABLET PO SCH (09:02)
[2022-11-29] MEDS: EZETIMIBE 10 MG TAB PO SCH (09:02)
[2022-11-29] MEDS: CHOLECALCIFEROL 25 MCG (1000 IU) TABLET PO SCH (09:02)
[2022-11-29] MEDS: FUROSEMIDE 10 MG/ML 10 ML VIAL IV SCH ×2 (09:02→16:49)
[2022-11-29] MEDS: LEVOTHYROXINE 88 MCG TAB PO SCH (09:02)
[2022-11-29] MEDS: allopurinoL 300 MG TAB PO SCH (09:02)
[2022-11-29] MEDS: ISOSORBIDE MONONITRATE ER 60 MG TAB.ER.24H PO SCH (09:02)
[2022-11-29] MEDS: TAMSULOSIN 0.4 MG CAP.ER.24H PO SCH ×2 (09:03→21:36)
[2022-11-29] MEDS: HEPARIN SODIUM,PORCINE/PF 5,000 UNIT/0.5 ML SYRINGE SQ SCH ×2 (09:03→21:37)
[2022-11-29] MEDS: ASPIRIN 81 MG PO SCH (09:03)
[2022-11-29] MEDS: PANTOPRAZOLE 40 MG/10 ML VIAL IVP SCH ×2 (09:03→21:37)
[2022-11-29] MEDS: ATORVASTATIN 80 MG TAB PO SCH (09:03)
--- NOTE | 2022-11-29 13:44 | P.HPIM ---
History of Present Illness 82-year-old male was sent in the ER because of bilateral lower extremity edema appears to be secondary to venous insufficiency patient doesn't have significant shortness of breath may has sleep apnea was never tested for this, chest x-ray did not show any pulmonary edema patient had a normal echocardiogram in the past patient does have a lower extremity skin breakdown and will need wound care redness in the right bilateral lower extremity significant in the right lower extremity without any local is of temperature. Patient has seen in pediatrics who sent him here to the hospital for volume overload. REVIEW OF SYSTEMS: CONSTITUTIONAL: No fever, no malaise, no fatigue. HEENT: No recent visual problems or hearing problems. Denied any sore throat. CARDIOVASCULAR: No chest pain, orthopnea, PND, no palpitations, no syncope. PULMONARY: No shortness of breath, no cough, no hemoptysis. GASTROINTESTINAL: No diarrhea, no nausea, no vomiting, no abdominal pain. NEUROLOGICAL: No headaches, no weakness, no numbness. HEMATOLOGICAL: Denies any bleeding or petechiae. GENITOURINARY: Denies any burning micturition, frequency, or urgency. MUSCULOSKELETAL/RHEUMATOLOGICAL: Denies any joint pain, swelling, or any muscle pain. ENDOCRINE: Denies any polyuria or polydipsia. The rest of the 14-point review of systems is negative. PHYSICAL EXAMINATION: GENERAL: The patient is alert and oriented x3, not in any acute distress. Well developed, well nourished. HEENT: Pupils are round and equally reacting to light. EOMI. No scleral icterus. No conjunctival pallor. Normocephalic, atraumatic. No pharyngeal erythema. No thyromegaly. CARDIOVASCULAR: S1 and S2 present. No murmurs, rubs, or gallops. PULMONARY: Chest is clear to auscultation, no wheezing or crackles. ABDOMEN: Soft, nontender, nondistended, normoactive bowel sounds. No palpable organomegaly. MUSCULOSKELETAL: No joint swelling or deformity. EXTREMITIES: No cyanosis, clubbing, independent bilateral lower extremity edema with multiple areas of skin breakdown with serous drainage pitting pedal edema patient has 4+ pitting edema extending up to mid thigh area. NEUROLOGICAL: Gross neurological examination did not reveal any focal deficits. SKIN: Redness in bilateral lower extremities without any local is of temperature with skin breakdown significant redness predominantly in the right lower extremity Assessment and plan -Volume overload secondary to chronic venous insufficiency patient has extensive edema bilateral lower extremity will need IV Lasix patient will be continued on 40 mg of IV Lasix and can you to monitor. No clear evidence of heart failure at this time cardiology evaluated the patient. Patient does take Zaroxolyn at home -Type 2 diabetes mellitus: Patient will be started on his home medications along with sliding scale next and-have B next and-hypertension -Obesity -Coronary artery disease CABG in the past -Bilateral lower extremity venous stasis with skin breakdown will need local wound care DVT prophylaxis: Subcutaneous heparin Past Medical History Past Medical History: Cancer, Diabetes Mellitus, Hyperlipidemia, Hypertension, Myocardial Infarction ([place]) Additional Past Medical History / Comment(s): SKIN CANCER , GOUT CHRONIC BACK Pain,SKIN LESIONS , 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 Last Myocardial Infarction Date:: 08/18/19 History of Any Multi-Drug Resistant Organisms: MRSA Date of last positivie culture/infection: 07/22/16 MDRO Source:: LOWER LEGS Past Surgical History: Cholecystectomy, Coronary Bypass/CABG, Heart Catheterization, Joint Replacement Additional Past Surgical History / Comment(s): PICC line insertion/removed, bilateral caract removals, COLONOSCOPY, EGD, CANCEROUS SKIN LESIONS REMOVED, TOTAL RIGHT KNEE REPLACEMENT, 06-04-16 QUAD BYPASS Past Anesthesia/Blood Transfusion Reactions: Previous Problems w/ Anesthesia Additional Past Anesthesia/Blood Transfusion Reaction / Comment(s): HAD A HARD TIME COMING OUT OF ANESTHESIA AFTER CHOLECYSTECTOMY Past Psychological History: No Psychological Hx Reported Additional Psychological History / Comment(s): Was in the [employer] and was in the [place]. Smoking Status: Former smoker Past Alcohol Use History: None Reported Additional Past Alcohol Use History / Comment(s): Pt quit smoking in 1982, STARTED SMOKING AT AGE 18 SMOKED 1 PPD. Past Drug Use History: None Reported - Past Family History Father Family Medical History: Vascular Disorder Additional Family Medical History / Comment(s): POOR CIRCULATION-HAD AMPUTATIONS D/T POOR CIRCULATION Mother Family Medical History: Cancer Additional Family Medical History / Comment(s): STOMACH CANCER Medications and Allergies Home Medications Medication Instructions Recorded Confirmed Type allopurinoL [Zyloprim] 300 mg PO DAILY 07/22/16 11/28/22 History Metoprolol Tartrate [Lopressor] 150 mg PO BID 10/25/16 11/28/22 History Aspirin EC [Ecotrin Low Dose] 81 mg PO DAILY 09/20/18 11/28/22 History HYDROcodone/APAP 7.5-325MG [[place] 1 tab PO BID 07/10/19 11/28/22 History 7.5-325] Magnesium Oxide [Magox 400] 400 mg PO DAILY 08/17/19 11/28/22 History Turmeric Root Extract [Turmeric] 500 mg PO DAILY 08/17/19 11/28/22 History Isosorbide Mononitrate ER [Imdur] 60 mg PO DAILY #30 tab 08/19/19 11/28/22 Rx Vitamin B Complex 1 cap PO DAILY 08/29/19 11/28/22 History Nitroglycerin Sl Tabs [Nitrostat] 0.4 mg SUBLINGUAL Q5M PRN #25 tab 09/02/19 11/28/22 Rx hydrALAZINE HCL [Apresoline] 50 mg PO BID 07/26/20 11/28/22 History sitaGLIPtin [Januvia] 50 mg PO DAILY 07/26/20 11/28/22 History metOLazone [Zaroxolyn] 5 mg PO DAILY 11/21/20 11/28/22 History Ezetimibe [Zetia] 10 mg PO DAILY 10/24/21 11/28/22 History Albuterol Inhaler [Ventolin Hfa 2 puff INHALATION RT-Q6H PRN 11/28/22 11/28/22 History Inhaler] Atorvastatin [Lipitor] 80 mg PO DAILY 11/28/22 11/28/22 History Cholecalciferol [Vitamin D3 (25 50 mcg PO DAILY 11/28/22 11/28/22 History Mcg = 1000 Iu)] Diclofenac Sodium Gel [Voltaren 2 gm TOPICAL QID PRN 11/28/22 11/28/22 History Gel] Levothyroxine Sodium [Synthroid] 88 mcg PO DAILY 11/28/22 11/28/22 History Silver Sulfadiazine [SSD 1% Cream] 1 applic TOPICAL BID PRN 11/28/22 11/28/22 History Tamsulosin [Flomax] 0.4 mg PO BID 11/28/22 11/28/22 History Allergies Allergy/AdvReac Type Severity Reaction Status Date / Time No Known Allergies Allergy Verified 11/28/22 21:34 Physical Exam Vitals: Vital Signs Temp Pulse Pulse Resp BP BP Pulse Ox 11/29/22 11:30 52 L 16 152/60 96 11/29/22 07:51 97.0 F L 52 L 16 172/74 96 11/29/22 06:53 98.7 F 60 20 186/72 98 11/29/22 01:05 49 L 16 137/90 97 11/28/22 22:40 55 L 11/28/22 22:13 50 L 20 181/67 94 L 11/28/22 21:12 64 18 186/72 94 L 11/28/22 20:23 97.7 F 58 L 18 188/85 98 11/28/22 18:42 98 F 50 L 18 157/65 95 Intake and Output 11/28/22 11/29/22 11/29/22 22:59 06:59 14:59 Other: Weight 136.078 kg 136 kg Results CBC & Chem 7: 11/28/22 19:15 11/28/22 19:15 Labs: Abnormal Lab Results - Last 24 Hours (Table) 11/28/22 11/28/22 Range/Units 19:15 19:15 WBC 11.4 H (3.8-10.6) k/uL RBC 3.63 L (4.30-5.90) m/uL Hct 36.1 L (39.0-53.0) % MCH 36.2 H (25.0-35.0) pg Neutrophils # 8.6 H (1.3-7.7) k/uL Monocytes # 1.2 H (0-1.0) k/uL Sodium 135 L (137-145) mmol/L Chloride 97 L (98-107) mmol/L BUN 27 H (9-20) mg/dL Glucose 110 H (74-99) mg/dL Thrombosis Risk Factor Assmnt - Choose All That Apply Each Factor Represents 1 point: Obesity (BMI >25) Each Risk Factor Represents 3 Points: Age 75 years or older Thrombosis Risk Factor Assessment Total Risk Factor Score: 4 Thrombosis Risk Factor Assessment Level: Moderate Risk
[2022-11-29] MEDS ORDERED: DEXTROSE 50% SYRINGE 50 ML IVP PRN ×2 (14:40)
--- NOTE | 2022-11-29 15:57 | CONS ---
CONSULTATION HISTORY OF PRESENT ILLNESS: Bobby Lyn is an 82-year-old gentleman with history of coronary artery disease, status post prior bypass surgery, hypertension, dyslipidemia, morbid obesity, and obstructive sleep apnea, who is sent to the hospital primarily because of right leg swelling, cellulitis, and weeping. Cardiology has been consulted because of cardiac history and the possibility of congestive heart failure given the elevated BNP at 3380. At the time of my evaluation this morning, the patient appears comfortable at rest. Denies any chest pain or difficulty in breathing. Has right leg swelling that is much more than the left and has weeping. His clinical presentation is consistent with acute exacerbation of chronic congestive heart failure and a component of stasis and cellulitis. I will treat the patient with IV Lasix, obtain a 2D echo and consult Wound Care at the hospital. PAST MEDICAL HISTORY: Significant for coronary artery disease, status post bypass surgery, hypothyroidism, dyslipidemia, hypertension and diabetes. MEDICATIONS: Medications at home are as charted and I reviewed them. ALLERGIES: No known drug allergies. FAMILY HISTORY: Negative for premature coronary artery disease. SOCIAL HISTORY: Negative for current smoking, EtOH abuse or drug abuse. REVIEW OF SYSTEMS: 14 out of 14 review of systems has been performed, Pertinents are as documented. PHYSICAL EXAMINATION: GENERAL: The patient is comfortable at rest. VITAL SIGNS: Afebrile. Vital signs are stable. Blood pressure is elevated. NECK: There is no jugular venous distention. Carotid upstroke is diminished. There is no bruit. CHEST: Reveals diminished air entry at the bases. I do not hear any crackles or rhonchi. HEART: Reveals first and second heart sounds and a systolic murmur at the apex. ABDOMEN: Soft. EXTREMITIES: Exam of extremities reveals [id number] leg edema, primarily involving the right leg. DIAGNOSTIC DATA: EKG shows sinus rhythm with nonspecific ST-T wave changes. ASSESSMENT AND PLAN: 1. Acute exacerbation of chronic congestive heart failure. 2. Coronary artery disease, status post coronary artery bypass grafting. 3. Cellulitis of the right leg. PLAN: We will treat the patient with IV Lasix. Consult ID. Resume his medications. MMODL / IJN: [id number] /
[2022-11-29 16:42] LABS: Glucose,Whole Blood 122 mg/dL (70-110)
[2022-11-29] MEDS: INSULIN ASPART (NovoLOG) 100 UNIT/ML VIAL SQ SCH ×2 (16:42→21:28)
[2022-11-29] MEDS: HYDROcodone/APAP 7.5-325MG 1 EACH TAB PO PRN (21:37)
--- NOTE | 2022-11-29 21:47 | P.CONS ---
History of Present Illness - Reason for Consult Consult date: 11/29/22 Weeping edema, scabbed area and concern for cellulitis Requesting physician: Piotr Teran - Chief Complaint Increasing swelling to bilateral lower extremity x days - History of Present Illness Patient is a 84-year old male with a past medical history sniffing for diabetes mellitus hypertension hyperlipidemia [place] history of skin cancer patient has been dealing with excess swelling to bilateral lower extremity that seem to have been getting worse patient apparently did have a few small areas of ruptured blister that has been draining some clear fluid patient mention he went to see his trap setter who advised him to go to the hospital for fluid overload, patient currently denies having any fever or any chills has been complaining of increasing swelling to the lower extremity that seem to be getting worse and the patient also have some erythema to bilateral extremity per the at the bedside patient mention the drainage has been mostly clear no foul-smelling drainage patient on presentation to the hospital was afebrile and no fever has been recorded subsequently did have vital of 11.4 with a left shift creatinine has been normal liver enzymes are normal patient did have a chest x-ray no acute cardiopulmonary disease process infectious disease was consulted concerning for lower extremity cellulitis and antibiotic therapy Review of Systems Positive point and negatives has been mentioned in the HPI, complete review of systems was performed and all other systems are negative Past Medical History Past Medical History: Cancer, Diabetes Mellitus, Hyperlipidemia, Hypertension, Myocardial Infarction ([place]) Additional Past Medical History / Comment(s): SKIN CANCER , GOUT CHRONIC BACK Pain,SKIN LESIONS , 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 Last Myocardial Infarction Date:: 08/18/19 History of Any Multi-Drug Resistant Organisms: MRSA Year Discovered:: 07/22/16 MDRO Source:: LOWER LEGS Past Surgical History: Cholecystectomy, Coronary Bypass/CABG, Heart Catheterization, Joint Replacement Additional Past Surgical History / Comment(s): PICC line insertion/removed, bilateral caract removals, COLONOSCOPY, EGD, CANCEROUS SKIN LESIONS REMOVED, TOTAL RIGHT KNEE REPLACEMENT, 06-04-16 QUAD BYPASS Past Anesthesia/Blood Transfusion Reactions: Previous Problems w/ Anesthesia Additional Past Anesthesia/Blood Transfusion Reaction / Comm: HAD A HARD TIME COMING OUT OF ANESTHESIA AFTER CHOLECYSTECTOMY Past Psychological History: No Psychological Hx Reported Additional Psychological History / Comment(s): Was in the [employer] and was in the [place]. Smoking Status: Former smoker Past Alcohol Use History: None Reported Additional Past Alcohol Use History / Comment(s): Pt quit smoking in 1982, STARTED SMOKING AT AGE 18 SMOKED 1 PPD. Past Drug Use History: None Reported - Past Family History Father Family Medical History: Vascular Disorder Additional Family Medical History / Comment(s): POOR CIRCULATION-HAD AMPUTATIONS D/T POOR CIRCULATION Mother Family Medical History: Cancer Additional Family Medical History / Comment(s): STOMACH CANCER Medications and Allergies Home Medications Medication Instructions Recorded Confirmed Type allopurinoL [Zyloprim] 300 mg PO DAILY 07/22/16 11/28/22 History Metoprolol Tartrate [Lopressor] 150 mg PO BID 10/25/16 11/28/22 History Aspirin EC [Ecotrin Low Dose] 81 mg PO DAILY 09/20/18 11/28/22 History HYDROcodone/APAP 7.5-325MG [C[place]der 1 tab PO BID 07/10/19 11/28/22 History 7.5-325] Magnesium Oxide [Magox 400] 400 mg PO DAILY 08/17/19 11/28/22 History Turmeric Root Extract [Turmeric] 500 mg PO DAILY 08/17/19 11/28/22 History Isosorbide Mononitrate ER [Imdur] 60 mg PO DAILY #30 tab 08/19/19 11/28/22 Rx Vitamin B Complex 1 cap PO DAILY 08/29/19 11/28/22 History Nitroglycerin Sl Tabs [Nitrostat] 0.4 mg SUBLINGUAL Q5M PRN #25 tab 09/02/19 11/28/22 Rx hydrALAZINE HCL [Apresoline] 50 mg PO BID 07/26/20 11/28/22 History sitaGLIPtin [Januvia] 50 mg PO DAILY 07/26/20 11/28/22 History Ezetimibe [Zetia] 10 mg PO DAILY 10/24/21 11/28/22 History Albuterol Inhaler [Ventolin Hfa 2 puff INHALATION RT-Q6H PRN 11/28/22 11/28/22 History Inhaler] Atorvastatin [Lipitor] 80 mg PO DAILY 11/28/22 11/28/22 History Cholecalciferol [Vitamin D3 (25 50 mcg PO DAILY 11/28/22 11/28/22 History Mcg = 1000 Iu)] Diclofenac Sodium Gel [Voltaren 2 gm TOPICAL QID PRN 11/28/22 11/28/22 History Gel] Levothyroxine Sodium [Synthroid] 88 mcg PO DAILY 11/28/22 11/28/22 History Silver Sulfadiazine [SSD 1% Cream] 1 applic TOPICAL BID PRN 11/28/22 11/28/22 History Tamsulosin [Flomax] 0.4 mg PO BID 11/28/22 11/28/22 History Cephalexin [Keflex] 500 mg PO Q8HR 7 Days #21 cap 12/01/22 Rx Furosemide [Lasix] 40 mg PO BID@0900,1600 #60 tab 12/01/22 Rx Allergies Allergy/AdvReac Type Severity Reaction Status Date / Time No Known Allergies Allergy Verified 11/28/22 21:34 Physical Exam Vitals: Vital Signs Temp Pulse Pulse Resp BP BP Pulse Ox 11/29/22 11:30 52 L 16 152/60 96 11/29/22 07:51 97.0 F L 52 L 16 172/74 96 11/29/22 06:53 98.7 F 60 20 186/72 98 11/29/22 01:05 49 L 16 137/90 97 11/28/22 22:40 55 L 11/28/22 22:13 50 L 20 181/67 94 L 11/28/22 21:12 64 18 186/72 94 L 11/28/22 20:23 97.7 F 58 L 18 188/85 98 11/28/22 18:42 98 F 50 L 18 157/65 95 Intake and Output 11/28/22 11/29/22 11/29/22 22:59 06:59 14:59 Other: Weight 136.078 kg 136 kg GENERAL DESCRIPTION: Elderly male lying in bed, no distress. No tachypnea or accessory muscle of respiration use. HEENT: Shows Pallor , no scleral icterus. Oral mucous membrane is dry. No pharyngeal erythema or thrush NECK: Trachea central, no thyromegaly. LUNGS: Unlabored breathing. Decreased breath sound the bases. HEART: S1, S2, regular rate and rhythm. No loud murmur ABDOMEN: Soft, no tenderness , guarding or rigidity, no organomegaly EXTREMITIES: Diffuse swelling bilaterally extremity with some erythema warm to touch SKIN: No rash, no masses palpable. NEUROLOGICAL: The patient is awake, alert, oriented x3, mood and affect normal. Results CBC & Chem 7: 12/01/22 08:36 12/01/22 08:36 Labs: Abnormal Lab Results - Last 24 Hours (Table) 11/28/22 11/28/22 Range/Units 19:15 19:15 WBC 11.4 H (3.8-10.6) k/uL RBC 3.63 L (4.30-5.90) m/uL Hct 36.1 L (39.0-53.0) % MCH 36.2 H (25.0-35.0) pg Neutrophils # 8.6 H (1.3-7.7) k/uL Monocytes # 1.2 H (0-1.0) k/uL Sodium 135 L (137-145) mmol/L Chloride 97 L (98-107) mmol/L BUN 27 H (9-20) mg/dL Glucose 110 H (74-99) mg/dL Assessment and Plan (1) Bilateral lower leg cellulitis Current Visit: Yes Status: Acute Code(s): L03.116 - CELLULITIS OF LEFT LOWER LIMB; L03.115 - CELLULITIS OF RIGHT LOWER LIMB SNOMED Code(s): 983393325 Plan: 1patient presented to hospital with increasing swelling to bilateral lower extremity in this patient who did have evidence of fluid overload possible cardiac etiology in this patient with multiple Comorbidities, patient also have mild erythema to bilateral lower extremity slightly warm to touch concerning for cellulitis as the patient did have elevated white count likely from gram- positive skin ayan 2-we will start the patient on cefazolin 2 g every 8 hours 3-Boris wrap to the left to keep the swelling down We will follow on clinical condition and cultures to further adjust medication if needed Thank you for this consultation we will follow the patient along with you Time with Patient: Greater than 30
[2022-11-30] MEDS: hydrALAZINE HCL 50 MG TAB PO SCH ×3 (00:21→12:47)
[2022-11-30] MEDS: FUROSEMIDE 10 MG/ML 10 ML VIAL IV SCH ×2 (00:21→08:33)
[2022-11-30 06:02] LABS: Glucose,Whole Blood 117 mg/dL (70-110)
[2022-11-30] MEDS: INSULIN ASPART (NovoLOG) 100 UNIT/ML VIAL SQ SCH ×4 (06:09→20:07)
[2022-11-30] MEDS: LEVOTHYROXINE 88 MCG TAB PO SCH (06:18)
[2022-11-30] MEDS: allopurinoL 300 MG TAB PO SCH (08:23)
[2022-11-30] MEDS: ISOSORBIDE MONONITRATE ER 60 MG TAB.ER.24H PO SCH (08:23)
[2022-11-30] MEDS: PANTOPRAZOLE 40 MG/10 ML VIAL IVP SCH ×2 (08:24→20:14)
[2022-11-30] MEDS: ATORVASTATIN 80 MG TAB PO SCH (08:24)
[2022-11-30] MEDS: EZETIMIBE 10 MG TAB PO SCH (08:24)
[2022-11-30] MEDS: MAGNESIUM OXIDE 400 MG TAB PO SCH (08:24)
[2022-11-30] MEDS: LINAGLIPTIN 5 MG TABLET PO SCH (08:24)
[2022-11-30] MEDS: CHOLECALCIFEROL 25 MCG (1000 IU) TABLET PO SCH (08:24)
[2022-11-30] MEDS: TAMSULOSIN 0.4 MG CAP.ER.24H PO SCH ×2 (08:24→20:14)
[2022-11-30] MEDS: ASPIRIN 81 MG PO SCH (08:24)
[2022-11-30] MEDS: HEPARIN SODIUM,PORCINE/PF 5,000 UNIT/0.5 ML SYRINGE SQ SCH ×2 (08:25→20:14)
[2022-11-30] MEDS: HYDROcodone/APAP 7.5-325MG 1 EACH TAB PO PRN (08:32)
[2022-11-30 09:10] LABS: Basophils # (A) 0.1 k/uL (0-0.2); Basophils % (A) 1 %; Eosinophils # (A) 0.2 k/uL (0-0.7); Eosinophils % (A) 2 %; HCT 38.1 % (39.0-53.0); HGB 12.8 gm/dL (13.0-17.5); Lymphocytes # (A) 1.2 k/uL (1.0-4.8); Lymphocytes % (A) 14 %; MCH 33.8 pg (25.0-35.0); MCHC 33.6 g/dL (31.0-37.0); MCV 100.5 fL (80.0-100.0); Macrocytosis Slight; Mean Platelet Volume 7.9; Monocytes # (A) 0.5 k/uL (0-1.0); Monocytes % (A) 6 %; Neutrophils # (A) 6.7 k/uL (1.3-7.7); Neutrophils % (A) 77 %; Platelet Count 227 k/uL (150-450); RBC 3.79 m/uL (4.30-5.90); RDW 14.3 % (11.5-15.5); WBC 8.8 k/uL (3.8-10.6)
[2022-11-30 09:23] LABS: Calcium 8.9 mg/dL (8.4-10.2); Potassium 3.3 mmol/L (3.5-5.1)
[2022-11-30 11:42] LABS: Glucose,Whole Blood 129 mg/dL (70-110)
[2022-11-30] MEDS ORDERED: Potassium Replacement Protocol 1 EACH MISC MISCELLANE PRN ×2 (11:52→14:52)
[2022-11-30] MEDS: POTASSIUM CHLORIDE 10 MEQ in WATER FOR INJECTION 1 100ML.BAG IVPB SCH ×2 (12:12→19:21)
--- NOTE | 2022-11-30 13:16 | P.PN ---
Subjective Progress Note Date: 11/30/22 History of present illness: This is an 82 year old male with past history of coronary artery disease status post prior bypass surgery, hypertension, hyperlipidemia, morbid obesity, obstructive sleep apnea. Patient was sent into the hospital primarily due to right leg swelling cellulitis and weeping. Cardiology was consulted due to cardiac history and possibility of congestive heart failure with BNP of 3380. Patient was started on IV Lasix currently at 40 mg every 8 hours. His swelling is improved today with less weeping of the left lower extremity. Patient states that he has been urinating quite a bit through the past 24 hours. He denies feeling any lightheadedness or dizziness and no shortness of breath with ambulating. In general he is feeling better and hoping to go home today. EKG sinus rhythm with nonspecific ST-T wave changes. Echocardiogram has been obtained and report is pending. WBC 8.8, hemoglobin 12.8, potassium 3.3 and replaced, BUN 29 creatinine 1.43. Blood pressure this morning is low at 90/43 and hydralazine will be changed to 25 mg every 8 hours. Physical examination: Gen: This is a morbidly obese 82-year-old male. He is resting and recliner and appears to be comfortable, no acute respiratory distress noted VS: reviewed HEENT: Head is atraumatic, normocephalic. Pupils equal, round. Sclerae is anicteric. NECK: Supple. No JVD. . LUNGS: Diminished air entry to the bilateral bases. No intercostal retractions. HEART: Regular rate and rhythm. Systolic murmur at the apex. ABDOMEN: Soft No tenderness. EXTREMITIES: Moderate lower pedal edema. NEUROLOGICAL: Patient is awake, alert and oriented x3. Assessment: Acute exacerbation of chronic systolic heart failure Coronary artery disease status post CABG Cellulitis of the right leg Plan: Decrease hydralazine to 25 mg every 8 hours Change IV Lasix to 40 mg oral twice daily Continue other cardiac medications including metolazone Patient is cleared from cardiology for discharge home and may follow-up in the office in one to 2 weeks. Nurse practitioner note has been reviewed, I agree with documented findings and plan of care. Patient was seen and examined. Objective - Vital Signs Vital signs: Vital Signs Temp 97.7 F 11/30/22 08:00 Pulse 84 11/30/22 08:00 Resp 18 11/30/22 08:00 BP 101/66 11/30/22 08:00 Pulse Ox 97 11/30/22 08:00 FiO2 Intake & Output 11/29/22 11/30/22 11/30/22 18:59 06:59 18:59 Intake Total 200 10 180 Output Total 600 Balance 200 -590 180 Weight 136 kg 137.35 kg Intake: IV 10 Invasive Line 2 10 Oral 200 180 Output: Urine 600 Other: Voiding Method Urinal # Voids 1 - Labs CBC & Chem 7: 11/30/22 08:04 11/30/22 08:04 Labs: Abnormal Lab Results - Last 24 Hours (Table) 11/29/22 11/30/22 11/30/22 Range/Units 16:40 06:01 08:04 RBC 3.79 L (4.30-5.90) m/uL Hgb 12.8 L (13.0-17.5) gm/dL Hct 38.1 L (39.0-53.0) % MCV 100.5 H (80.0-100.0) fL Potassium (3.5-5.1) mmol/L Chloride (98-107) mmol/L Carbon Dioxide (22-30) mmol/L BUN (9-20) mg/dL Creatinine (0.66-1.25) mg/dL Glucose (74-99) mg/dL POC Glucose (mg/dL) 122 H 117 H (70-110) mg/dL 11/30/22 Range/Units 08:04 RBC (4.30-5.90) m/uL Hgb (13.0-17.5) gm/dL Hct (39.0-53.0) % MCV (80.0-100.0) fL Potassium 3.3 L (3.5-5.1) mmol/L Chloride 94 L (98-107) mmol/L Carbon Dioxide 31 H (22-30) mmol/L BUN 29 H (9-20) mg/dL Creatinine 1.43 H (0.66-1.25) mg/dL Glucose 119 H (74-99) mg/dL POC Glucose (mg/dL) (70-110) mg/dL
--- NOTE | 2022-11-30 13:51 | CA ---
Transthoracic Echo Report Name: Bobyb Lyn Age: 82 Gender: M : 1940 Exam Date: 11/29/2022 10:17 Exam Location: [facility] Ht (in): 72 Wt (lb): 300 Ordering Physician: Piotr Teran MD ([id number]) Attending/Referring Phys: Jeffry ROGERS [employer] Yanet Rockwell RDCS Procedure CPT: Indications: LV function Cardiac Hx: hx of CABG, DC Technical Quality: Technically difficult study Contrast 1: Lumason Total Dose (mL): 3 Contrast 2: Total Dose (mL): MEASUREMENTS (Male / Female) Normal Values 2D ECHO LV Diastolic Diameter PLAX 4.4 cm 4.2 - 5.9 / 3.9 - 5.3 cm LV Systolic Diameter PLAX 2.7 cm IVS Diastolic Thickness 1.7 cm 0.6 - 1.0 / 0.6 - 0.9 cm LVPW Diastolic Thickness 1.6 cm 0.6 - 1.0 / 0.6 - 0.9 cm LV Relative Wall Thickness 0.8 RV Internal Dim ED PLAX 3.5 cm LA Systolic Diameter LX 3.9 cm 3.0 - 4.0 / 2.7 - 3.8 cm LA Volume 57.7 cm??? 18 - 58 / 22 - 52 cm??? M-MODE Aortic Root Diameter MM 3.8 cm MV E Point Septal Separation 2.4 cm AV Cusp Separation MM 2.2 cm DOPPLER AV Peak Velocity 135.3 cm/s AV Peak Gradient 7.3 mmHg MV Area PHT 2.3 cm??? MV Deceleration Time 312.6 ms TR Peak Velocity 253.5 cm/s TR Peak Gradient 25.7 mmHg Right Ventricular Systolic Press 30.7 mmHg FINDINGS Left Ventricle Left ventricular ejection fraction is estimated at 50-55 %. Left ventricular cavity size normal. Moderate concentric left ventricular hypertrophy. Right Ventricle Mild right ventricular dilatation. Right ventricular systolic pressure within normal limits. Right Atrium Normal right atrial size. Left Atrium Normal left atrial size. Mitral Valve Mitral valve thickened. Mild mitral annular calcification. Mild mitral regurgitation. Aortic Valve Trileaflet aortic valve. No aortic valve stenosis or regurgitation. Tricuspid Valve Structurally normal tricuspid valve. Mild tricuspid regurgitation. Pulmonic Valve Structurally normal pulmonic valve. Trace to mild pulmonic regurgitation. Pericardium Normal pericardium. No pericardial effusion. Aorta Mild aortic dilatation at the level of the sinuses of valsalva 38 mm CONCLUSIONS Concentric left ventricular hypertrophy with normal LV function Mild mitral regurgitation Mild tricuspid regurgitation Previewed by: Dr. Piotr Teran MD (Electronically Signed) Final Date: 30 Nov 2022 13:50
[2022-11-30] MEDS: FUROSEMIDE 40 MG TAB PO SCH (15:03)
[2022-11-30] MEDS: POTASSIUM CHLORIDE ER 20 MEQ TAB.ER PO SCH ×4 (15:03→21:32)
[2022-11-30] MEDS: hydrALAZINE HCL 25 MG TAB PO SCH (15:57)
[2022-11-30 16:37] LABS: Glucose,Whole Blood 152 mg/dL (70-110)
[2022-11-30 18:02] LABS: Magnesium 1.8 mg/dL (1.6-2.3); Potassium 3.4 mmol/L (3.5-5.1)
[2022-11-30] MEDS ORDERED: Magnesium Replacement Protocol 1 EACH MISC MISCELLANE PRN (18:44)
[2022-11-30] MEDS ORDERED: MAGNESIUM SULFATE-D5W PMX 1 GM in DEXTROSE/WATER 1 100ML.BAG IVPB ONE (18:44)
[2022-11-30 20:00] LABS: Glucose,Whole Blood 135 mg/dL (70-110)
--- NOTE | 2022-11-30 23:25 | PN ---
PROGRESS NOTE DATE OF SERVICE: 11/30/2022 SUBJECTIVE: This is an 82-year-old gentleman, who has bilateral leg edema, also had some CHF acute exacerbation. No chest pain. No palpitations. No fever. OBJECTIVE: VITAL SIGNS: Pulse is 69, blood pressure n, respirations 18. CHEST: A few scattered rhonchi. ABDOMEN: Soft. NERVOUS SYSTEM: No focal deficits. LEGS: Minimal edema. LABORATORY DATA: Reviewed. ASSESSMENT: 1. Congestive heart failure acute exacerbation with acute on chronic systolic heart failure. 2. Coronary artery disease, coronary artery bypass graft. 3. Cellulitis of the right leg. RECOMMENDATIONS: Recommend to continue current medications and continue symptomatic treatment. Continue with Lasix. Closely follow with Cardiology. The patient is on cefazolin. Infectious Disease is on. We will resume the home medications and repeat labs in the morning. Further recommendations to follow. JOSE J / ANNN: [id number] / MTDD
[2022-12-01] MEDS: hydrALAZINE HCL 25 MG TAB PO SCH (00:36)
[2022-12-01] MEDS: HYDROcodone/APAP 7.5-325MG 1 EACH TAB PO PRN ×2 (00:36→10:34)
[2022-12-01] MEDS: INSULIN ASPART (NovoLOG) 100 UNIT/ML VIAL SQ SCH ×2 (06:22→12:23)
[2022-12-01] MEDS: LEVOTHYROXINE 88 MCG TAB PO SCH (06:23)
[2022-12-01 06:25] LABS: Glucose,Whole Blood 122 mg/dL (70-110)
[2022-12-01] MEDS ORDERED: hydrALAZINE HCL 50 MG TAB PO SCH (09:30)
[2022-12-01 10:00] LABS: Basophils # (A) 0.1 k/uL (0-0.2); Basophils % (A) 1 %; Eosinophils # (A) 0.2 k/uL (0-0.7); Eosinophils % (A) 2 %; HCT 37.5 % (39.0-53.0); HGB 12.6 gm/dL (13.0-17.5); Lymphocytes # (A) 1.3 k/uL (1.0-4.8); Lymphocytes % (A) 13 %; MCH 34.2 pg (25.0-35.0); MCHC 33.5 g/dL (31.0-37.0); MCV 102.1 fL (80.0-100.0); Macrocytosis Slight; Mean Platelet Volume 7.8; Monocytes # (A) 0.5 k/uL (0-1.0); Monocytes % (A) 6 %; Neutrophils # (A) 7.3 k/uL (1.3-7.7); Neutrophils % (A) 77 %; Platelet Count 214 k/uL (150-450); RBC 3.68 m/uL (4.30-5.90); RDW 14.2 % (11.5-15.5); WBC 9.5 k/uL (3.8-10.6)
[2022-12-01] MEDS: LINAGLIPTIN 5 MG TABLET PO SCH (10:22)
[2022-12-01] MEDS: FUROSEMIDE 40 MG TAB PO SCH ×2 (10:22→15:34)
[2022-12-01] MEDS: MAGNESIUM OXIDE 400 MG TAB PO SCH (10:22)
[2022-12-01] MEDS: TAMSULOSIN 0.4 MG CAP.ER.24H PO SCH (10:22)
[2022-12-01] MEDS: ISOSORBIDE MONONITRATE ER 60 MG TAB.ER.24H PO SCH (10:22)
[2022-12-01] MEDS: EZETIMIBE 10 MG TAB PO SCH (10:22)
[2022-12-01] MEDS: ATORVASTATIN 80 MG TAB PO SCH (10:22)
[2022-12-01] MEDS: allopurinoL 300 MG TAB PO SCH (10:22)
[2022-12-01] MEDS: ASPIRIN 81 MG PO SCH (10:22)
[2022-12-01] MEDS: PANTOPRAZOLE 40 MG/10 ML VIAL IVP SCH (10:23)
[2022-12-01] MEDS: HEPARIN SODIUM,PORCINE/PF 5,000 UNIT/0.5 ML SYRINGE SQ SCH (10:23)
[2022-12-01 10:26] LABS: Calcium 8.6 mg/dL (8.4-10.2)
[2022-12-01] MEDS: CHOLECALCIFEROL 25 MCG (1000 IU) TABLET PO SCH (10:34)
[2022-12-01 10:35] LABS: Magnesium 2.1 mg/dL (1.6-2.3); Potassium 4.3 mmol/L (3.5-5.1)
[2022-12-01 11:51] LABS: Glucose,Whole Blood 114 mg/dL (70-110)
--- NOTE | 2022-12-01 12:02 | P.PN ---
Subjective Progress Note Date: 12/01/22 History of present illness: This is an 82 year old male with past history of coronary artery disease status post prior bypass surgery, hypertension, hyperlipidemia, morbid obesity, obstructive sleep apnea. Patient was sent into the hospital primarily due to right leg swelling cellulitis and weeping. Cardiology was consulted due to cardiac history and possibility of congestive heart failure with BNP of 3380. Patient was started on IV Lasix currently at 40 mg every 8 hours. His swelling is improved today with less weeping of the left lower extremity. Patient states that he has been urinating quite a bit through the past 24 hours. He denies feeling any lightheadedness or dizziness and no shortness of breath with ambulating. In general he is feeling better and hoping to go home today. EKG sinus rhythm with nonspecific ST-T wave changes. Echocardiogram has been obtained and report is pending. WBC 8.8, hemoglobin 12.8, potassium 3.3 and replaced, BUN 29 creatinine 1.43. Blood pressure this morning is low at 90/43 and hydralazine will be changed to 25 mg every 8 hours. 12/01 Patient is seen today in follow-up. His heart rate is running 80s and 90s, blood pressure 154/60, pulse ox 100% on room air. Yesterday, Lasix was switched to oral. Plan to increase hydralazine to 50 mg every 8 hours. Physical examination: Gen: This is a morbidly obese 82-year-old male. He is resting and recliner and appears to be comfortable, no acute respiratory distress noted VS: reviewed HEENT: Head is atraumatic, normocephalic. Pupils equal, round. Sclerae is anicteric. NECK: Supple. No JVD. . LUNGS: Diminished air entry to the bilateral bases. No intercostal retractions. HEART: Regular rate and rhythm. Systolic murmur at the apex. ABDOMEN: Soft No tenderness. EXTREMITIES: Moderate lower pedal edema. NEUROLOGICAL: Patient is awake, alert and oriented x3. Assessment: Acute exacerbation of chronic systolic heart failure Coronary artery disease status post CABG Cellulitis of the right leg Plan: Increase hydralazine to 50 mg every 8 hours Continue oral Lasix 40 mg oral twice daily Continue other cardiac medications including metolazone Patient is cleared from cardiology for discharge home and may follow-up in the office in one to 2 weeks. Nurse practitioner note has been reviewed, I agree with documented findings and plan of care. Patient was seen and examined. Objective - Vital Signs Vital signs: Vital Signs Temp 98.1 F 12/01/22 04:00 Pulse 87 12/01/22 04:00 Resp 18 12/01/22 04:00 BP 162/92 12/01/22 04:00 Pulse Ox 96 12/01/22 04:00 FiO2 Intake & Output 11/30/22 12/01/22 12/01/22 18:59 06:59 18:59 Intake Total 540 10 480 Output Total 350 300 Balance 190 -290 480 Intake: IV 10 Invasive Line 2 10 Oral 540 480 Output: Urine 350 300 Other: Voiding Method Toilet # Voids 1 # Bowel Movements 1 - Labs CBC & Chem 7: 12/01/22 08:36 12/01/22 08:36 Labs: Abnormal Lab Results - Last 24 Hours (Table) 11/30/22 11/30/22 11/30/22 Range/Units 08:04 08:04 11:41 Potassium 3.3 L (3.5-5.1) mmol/L Chloride 94 L (98-107) mmol/L Carbon Dioxide 31 H (22-30) mmol/L BUN 29 H (9-20) mg/dL Creatinine 1.43 H (0.66-1.25) mg/dL Glucose 119 H (74-99) mg/dL POC Glucose (mg/dL) 129 H (70-110) mg/dL Hemoglobin A1c 6.1 H (0.0-6.0) % 11/30/22 11/30/22 11/30/22 Range/Units 16:36 17:31 19:58 Potassium 3.4 L (3.5-5.1) mmol/L Chloride (98-107) mmol/L Carbon Dioxide (22-30) mmol/L BUN (9-20) mg/dL Creatinine (0.66-1.25) mg/dL Glucose (74-99) mg/dL POC Glucose (mg/dL) 152 H 135 H (70-110) mg/dL Hemoglobin A1c (0.0-6.0) % 12/01/22 Range/Units 06:22 Potassium (3.5-5.1) mmol/L Chloride (98-107) mmol/L Carbon Dioxide (22-30) mmol/L BUN (9-20) mg/dL Creatinine (0.66-1.25) mg/dL Glucose (74-99) mg/dL POC Glucose (mg/dL) 122 H (70-110) mg/dL Hemoglobin A1c (0.0-6.0) %
--- NOTE | 2022-12-01 13:43 | DS ---
DISCHARGE SUMMARY FINAL DIAGNOSES: 1. Congestive heart failure, acute exacerbation. 2. Acute on chronic systolic heart failure. 3. Coronary artery disease with coronary artery bypass grafting. 4. Cellulitis of the right leg. DISCHARGE DISPOSITION: The patient will be discharged in stable condition with guarded prognosis. HISTORY OF PRESENT ILLNESS: This is an 82-year-old gentleman with a past medical history admitted with CHF acute exacerbation, treated with IV Lasix, and improved significantly. Infectious Disease also saw the patient. PHYSICAL EXAMINATION: VITAL SIGNS: Stable. CARDIOVASCULAR: S1, S2. ABDOMEN: Soft. NERVOUS SYSTEM: Nonfocal. DISCHARGE MEDICATIONS: Resume the home medications. Lasix 40 mg p.o. b.i.d. Antibiotics per ID. FOLLOWUP: With Dr. Caceres in 2 to 3 days. Follow up with Cardiology and Infectious Disease. Recommended limit fluid intake to 1200 cc per 24 hours. Follow up labs with the primary physician. MMODL / IJN: [id number] / MTDD
--- NOTE | 2022-12-01 15:28 | P.PN ---
Subjective Progress Note Date: 11/30/22 Principal diagnosis: Bilateral lower extremity cellulitis Patient is a 84-year old male with a past medical history sniffing for diabetes mellitus hypertension hyperlipidemia [place] history of skin cancer patient has been dealing with excess swelling to bilateral lower extremity, patient did have evidence of fluid overload and bilateral lower extremity cellulitis. on today's evaluation that is 11/30/2022, the patient denies having any fever or any chills, the patient is breathing slightly comfortably today on nasal cannula oxygen the patient denies having any chest pain or cough no nausea no vomiting no abdominal pain or pain to bilateral lower extremity Objective - Vital Signs Vital signs: Vital Signs Temp 97.7 F 11/30/22 08:00 Pulse 84 11/30/22 08:00 Resp 18 11/30/22 08:00 BP 101/66 11/30/22 08:00 Pulse Ox 97 11/30/22 08:00 FiO2 Intake & Output 11/29/22 11/30/22 11/30/22 18:59 06:59 18:59 Intake Total 200 10 180 Output Total 600 Balance 200 -590 180 Weight 136 kg 137.35 kg Intake: IV 10 Invasive Line 2 10 Oral 200 180 Output: Urine 600 Other: Voiding Method Urinal # Voids 1 - Exam GENERAL DESCRIPTION: An elderly male lying in bed in no distress RESPIRATORY SYSTEM: Unlabored breathing , decreased breath sounds at bases HEART: S1 S2 regular rate and rhythm , ABDOMEN: Soft , no tenderness EXTREMITIES: Bilateral lower extremity currently wrapped in Boris wrap - Labs CBC & Chem 7: 12/01/22 08:36 12/01/22 08:36 Labs: Abnormal Lab Results - Last 24 Hours (Table) 11/29/22 11/30/22 11/30/22 Range/Units 16:40 06:01 08:04 RBC 3.79 L (4.30-5.90) m/uL Hgb 12.8 L (13.0-17.5) gm/dL Hct 38.1 L (39.0-53.0) % MCV 100.5 H (80.0-100.0) fL Potassium (3.5-5.1) mmol/L Chloride (98-107) mmol/L Carbon Dioxide (22-30) mmol/L BUN (9-20) mg/dL Creatinine (0.66-1.25) mg/dL Glucose (74-99) mg/dL POC Glucose (mg/dL) 122 H 117 H (70-110) mg/dL 11/30/22 Range/Units 08:04 RBC (4.30-5.90) m/uL Hgb (13.0-17.5) gm/dL Hct (39.0-53.0) % MCV (80.0-100.0) fL Potassium 3.3 L (3.5-5.1) mmol/L Chloride 94 L (98-107) mmol/L Carbon Dioxide 31 H (22-30) mmol/L BUN 29 H (9-20) mg/dL Creatinine 1.43 H (0.66-1.25) mg/dL Glucose 119 H (74-99) mg/dL POC Glucose (mg/dL) (70-110) mg/dL Assessment and Plan (1) Bilateral lower leg cellulitis Current Visit: Yes Status: Acute Code(s): L03.116 - CELLULITIS OF LEFT LOWER LIMB; L03.115 - CELLULITIS OF RIGHT LOWER LIMB SNOMED Code(s): 668970290 Plan: 1patient presented to hospital with increasing swelling to bilateral lower extremity in this patient who did have evidence of fluid overload possible cardiac etiology in this patient with multiple Comorbidities, patient also have mild erythema to bilateral lower extremity slightly warm to touch concerning for cellulitis as the patient did have elevated white count likely from gram- positive skin ayan 2-patient to continue with cefazolin 2 g every 8 hours, along with Boris wrap to the left to keep the swelling down and monitor clinical course closely Time with Patient: Less than 30
--- NOTE | 2022-12-01 15:29 | P.PN ---
Subjective Progress Note Date: 12/01/22 Principal diagnosis: Bilateral lower extremity cellulitis Patient is a 84-year old male with a past medical history sniffing for diabetes mellitus hypertension hyperlipidemia NM history of skin cancer patient has been dealing with excess swelling to bilateral lower extremity, patient did have evidence of fluid overload and bilateral lower extremity cellulitis. on today's evaluation that is 12/01/2022, the patient remains to be afebrile, the patient is breathing comfortably on room air the patient denies having any chest pain or cough no nausea no vomiting no abdominal pain or pain to bilateral lower extremity, overall swelling has improved patient feeling better wants to go home Objective - Vital Signs Vital signs: Vital Signs Temp 97.2 F L 12/01/22 10:00 Pulse 96 12/01/22 10:00 Resp 18 12/01/22 10:00 BP 154/68 12/01/22 10:00 Pulse Ox 100 12/01/22 10:00 FiO2 Intake & Output 11/30/22 12/01/22 12/01/22 18:59 06:59 18:59 Intake Total 540 10 480 Output Total 350 300 650 Balance 190 -290 -170 Intake: IV 10 Invasive Line 2 10 Oral 540 480 Output: Urine 350 300 650 Other: Voiding Method Toilet Toilet Urinal # Voids 1 # Bowel Movements 1 - Exam GENERAL DESCRIPTION: An elderly male lying in bed in no distress RESPIRATORY SYSTEM: Unlabored breathing , decreased breath sounds at bases HEART: S1 S2 regular rate and rhythm , ABDOMEN: Soft , no tenderness EXTREMITIES: Bilateral lower extremity currently wrapped in Boris wrap - Labs CBC & Chem 7: 12/01/22 08:36 12/01/22 08:36 Labs: Abnormal Lab Results - Last 24 Hours (Table) 11/30/22 11/30/22 11/30/22 Range/Units 08:04 16:36 17:31 RBC (4.30-5.90) m/uL Hgb (13.0-17.5) gm/dL Hct (39.0-53.0) % MCV (80.0-100.0) fL Potassium 3.4 L (3.5-5.1) mmol/L Chloride (98-107) mmol/L BUN (9-20) mg/dL Creatinine (0.66-1.25) mg/dL Glucose (74-99) mg/dL POC Glucose (mg/dL) 152 H (70-110) mg/dL Hemoglobin A1c 6.1 H (0.0-6.0) % 11/30/22 12/01/22 12/01/22 Range/Units 19:58 06:22 08:36 RBC 3.68 L (4.30-5.90) m/uL Hgb 12.6 L (13.0-17.5) gm/dL Hct 37.5 L (39.0-53.0) % MCV 102.1 H (80.0-100.0) fL Potassium (3.5-5.1) mmol/L Chloride (98-107) mmol/L BUN (9-20) mg/dL Creatinine (0.66-1.25) mg/dL Glucose (74-99) mg/dL POC Glucose (mg/dL) 135 H 122 H (70-110) mg/dL Hemoglobin A1c (0.0-6.0) % 12/01/22 12/01/22 Range/Units 08:36 11:50 RBC (4.30-5.90) m/uL Hgb (13.0-17.5) gm/dL Hct (39.0-53.0) % MCV (80.0-100.0) fL Potassium (3.5-5.1) mmol/L Chloride 97 L (98-107) mmol/L BUN 32 H (9-20) mg/dL Creatinine 1.53 H (0.66-1.25) mg/dL Glucose 117 H (74-99) mg/dL POC Glucose (mg/dL) 114 H (70-110) mg/dL Hemoglobin A1c (0.0-6.0) % Assessment and Plan (1) Bilateral lower leg cellulitis Current Visit: Yes Status: Acute Code(s): L03.116 - CELLULITIS OF LEFT LOWER LIMB; L03.115 - CELLULITIS OF RIGHT LOWER LIMB SNOMED Code(s): 808513061 Plan: 1patient presented to hospital with increasing swelling to bilateral lower extremity in this patient who did have evidence of fluid overload possible cardiac etiology in this patient with multiple Comorbidities, patient also have mild erythema to bilateral lower extremity slightly warm to touch concerning for cellulitis as the patient did have elevated white count likely from gram- positive skin ayan 2-patient seemed to have her clinical improvement with cefazolin 2 g every 8 hours, along with Boris wrap, plan to finish therapy with oral Keflex and a close patient follow prescription sent to pharmacy Time with Patient: Less than 30
[2022-12-01 15:34] VITALS: BP 144/60; PULSE 92; RESP 16
[2022-12-01 16:48] VITALS: TEMP 96.9
== END 2022-12-01 16:21 | disposition home or self-care (01) ==
LOC: EC 17:53 → 3SCARD 23:53 → INTOOBSV 11-30 17:14 → OBSVTOIN 11-30 17:14 → UNDODISIN 11-30 17:14 → UNDODISOB 12-01 16:31
PROVIDERS: ADMIT Hospitalist; ATTEND Hospitalist
DX: I11.0 Hypertensive heart disease with heart failure (principal); I50.23 Acute on chronic systolic (congestive) heart failure; L03.115 Cellulitis of right lower limb; E11.9 Type 2 diabetes mellitus without complications; E78.5 Hyperlipidemia, unspecified; I25.2 Old myocardial infarction; M10.9 Gout, unspecified; M54.9 Dorsalgia, unspecified; J98.11 Atelectasis; I70.0 Atherosclerosis of aorta; G89.29 Other chronic pain; E03.9 Hypothyroidism, unspecified; I87.2 Venous insufficiency (chronic) (peripheral); E66.01 Morbid (severe) obesity due to excess calories; G47.33 Obstructive sleep apnea (adult) (pediatric); I08.1 Rheumatic disorders of both mitral and tricuspid valves; I37.1 Nonrheumatic pulmonary valve insufficiency; Z85.828 Personal history of other malignant neoplasm of skin; Z79.899 Other long term (current) drug therapy; Z79.82 Long term (current) use of aspirin; Z85.79 Personal history of other malignant neoplasms of lymphoid, hematopoietic and related tissues; Z92.21 Personal history of antineoplastic chemotherapy; Z90.49 Acquired absence of other specified parts of digestive tract; Z95.1 Presence of aortocoronary bypass graft; Z98.42 Cataract extraction status, left eye; Z98.41 Cataract extraction status, right eye; Z96.651 Presence of right artificial knee joint; Z87.891 Personal history of nicotine dependence; Z80.0 Family history of malignant neoplasm of digestive organs; Z82.49 Family history of ischemic heart disease and other diseases of the circulatory system; Z68.41 Body mass index [BMI] 40.0-44.9, adult
CPT/HCPCS: 96376 ×4; 96366 ×2; 96372 ×4; 96365 ×2; 96375; 99285; 36415; 93005; 83880; 80053; 80048 ×2; 83605; 83735 ×2; 84132; 84484; 85025 ×3; 85610; 83036; 71046; G0378 ×3; C8929; J1940 ×2; J0690 ×3; J3475; J3480; C9113 ×3; Q9950; J1644 ×3; 93306; 96374

== ENCOUNTER → 2022-12-13 | Outpatient (CLI) | payer MEDICARE ==
[2022-12-13 16:41] LABS: African American GFR (CKD) 43.2 (60.0-200.0); Anion Gap 15.5 mmol/L (10.00-18.00); BUN/Creat Ratio 51.59 Ratio (12.00-20.00); Blood Urea Nitrogen 87.7 mg/dL (9.0-27.0); Calcium 9.6 mg/dL (8.7-10.3); Carbon Dioxide 31.5 mmol/L (20.0-27.5); Non-African American GFR(CKD) 37.3 (60.0-200.0); Potassium 3.2 mmol/L (3.5-5.5)
[2022-12-13 16:58] LABS: Basophils # (A) 0.07 X 10*3/uL (0.00-0.10); Basophils % (A) 0.6 %; Eosinophils # (A) 0.21 X 10*3/uL (0.04-0.35); Eosinophils % (A) 1.8 %; HCT 34.8 % (39.6-50.0); HGB 11.8 g/dL (13.0-17.0); Immature Grans, Automated 0.9 %; Lymphocytes # (A) 1.37 X 10*3/uL (0.90-5.00); Lymphocytes % (A) 11.6 %; MCH 34.7 pg (27.0-32.0); MCHC 33.9 g/dL (32.0-37.0); MCV 102.4 fL (80.0-97.0); Mean Platelet Volume 10.7 fL (9.5-12.2); Monocytes # (A) 0.72 X 10*3/uL (0.20-1.00); Monocytes % (A) 6.1 %; NRBC Per 100 WBC 0 /100 WBCS (0.0-0.0); Neutrophils # (A) 9.29 X 10*3/uL (1.80-7.70); Platelet Count 218 X 10*3/uL (140-440); RDW 14.6 % (11.5-14.5); WBC 11.77 X 10*3/uL (4.50-10.00)
[2022-12-13 16:59] LABS: Acanthocytes 2+
== END | disposition home or self-care (01) ==
LOC: LABWHC1 10:38
PROVIDERS: ATTEND Hospitalist
DX: I50.9 Heart failure, unspecified (principal)
CPT/HCPCS: 36415; 80048; 85025

== ENCOUNTER → 2022-12-26 | Outpatient (CLI) | payer MEDICARE ==
[2022-12-26 16:14] LABS: BUN/Creat Ratio 20.62 Ratio (12.00-20.00); Blood Urea Nitrogen 26.8 mg/dL (9.0-27.0); Calcium 8.9 mg/dL (8.7-10.3); Carbon Dioxide 25.6 mmol/L (21.6-31.8); Chloride 104 mmol/L (96-109); Glucose 112 mg/dL (70-110); Sodium 139 mmol/L (135-145)
== END | disposition home or self-care (01) ==
LOC: LABWHC1 10:15
PROVIDERS: ATTEND Internal Medicine Cardiovascular Disease
DX: I50.32 Chronic diastolic (congestive) heart failure (principal)
CPT/HCPCS: 36415; 80048; 83880

== ENCOUNTER → 2023-01-06 | Outpatient (CLI) | payer MEDICARE ==
[2023-01-06 20:59] LABS: Blood Urea Nitrogen 37.8 mg/dL (9.0-27.0); Calcium 9.1 mg/dL (8.7-10.3); Carbon Dioxide 24.6 mmol/L (21.6-31.8); Chloride 100 mmol/L (96-109); Glucose 102 mg/dL (70-110); Potassium 4.7 mmol/L (3.5-5.5); Sodium 140 mmol/L (135-145)
== END | disposition home or self-care (01) ==
LOC: LABWHC1 13:10
PROVIDERS: ATTEND Internal Medicine Cardiovascular Disease
DX: I50.32 Chronic diastolic (congestive) heart failure (principal)
CPT/HCPCS: 36415; 80048

== ENCOUNTER 2023-02-14 11:58 | Emergency (ER) | payer MEDICARE ==
[2023-02-14 12:17] VITALS: RESP 18
--- NOTE | 2023-02-14 12:23 | ED ---
Fall HPI - General Chief Complaint: Fall Stated Complaint: fall Time Seen by Provider: 02/14/23 12:02 Source: patient, EMS, RN notes reviewed Mode of arrival: EMS Limitations: no limitations - History of Present Illness Initial Comments: This is an 82-year-old male who presents to the emergency department for a fall. Patient states that he was wearing socks that were slippery, and his legs slipped out from underneath him, causing him to fall face first on the ground. Currently complaining of pain to the forehead and left knee. Denies any loss consciousness. He is not taking any blood thinners. Tetanus vaccine is up-to-date. Denies any fevers, chills, sore throat, cough, dyspnea, chest pain, palpitations, abdominal pain, nausea, vomiting, diarrhea, or back pain. MD Complaint: fall Fall From: standing - Related Data Home Medications Medication Instructions Recorded Confirmed allopurinoL [Zyloprim] 300 mg PO DAILY 07/22/16 11/28/22 Metoprolol Tartrate [Lopressor] 150 mg PO BID 10/25/16 11/28/22 Aspirin EC [Ecotrin Low Dose] 81 mg PO DAILY 09/20/18 11/28/22 HYDROcodone/APAP 7.5-325MG [[place] 1 tab PO BID 07/10/19 11/28/22 7.5-325] Magnesium Oxide [Magox 400] 400 mg PO DAILY 08/17/19 11/28/22 Turmeric Root Extract [Turmeric] 500 mg PO DAILY 08/17/19 11/28/22 Vitamin B Complex 1 cap PO DAILY 08/29/19 11/28/22 hydrALAZINE HCL [Apresoline] 50 mg PO BID 07/26/20 11/28/22 sitaGLIPtin [Januvia] 50 mg PO DAILY 07/26/20 11/28/22 Ezetimibe [Zetia] 10 mg PO DAILY 10/24/21 11/28/22 Albuterol Inhaler [Ventolin Hfa 2 puff INHALATION RT-Q6H PRN 11/28/22 11/28/22 Inhaler] Atorvastatin [Lipitor] 80 mg PO DAILY 11/28/22 11/28/22 Cholecalciferol [Vitamin D3 (25 50 mcg PO DAILY 11/28/22 11/28/22 Mcg = 1000 Iu)] Diclofenac Sodium Gel [Voltaren 2 gm TOPICAL QID PRN 11/28/22 11/28/22 Gel] Levothyroxine Sodium [Synthroid] 88 mcg PO DAILY 11/28/22 11/28/22 Silver Sulfadiazine [SSD 1% Cream] 1 applic TOPICAL BID PRN 11/28/22 11/28/22 Tamsulosin [Flomax] 0.4 mg PO BID 11/28/22 11/28/22 Previous Rx's Medication Instructions Recorded Isosorbide Mononitrate ER [Imdur] 60 mg PO DAILY #30 tab 08/19/19 Nitroglycerin Sl Tabs [Nitrostat] 0.4 mg SUBLINGUAL Q5M PRN #25 tab 09/02/19 Cephalexin [Keflex] 500 mg PO Q8HR 7 Days #21 cap 12/01/22 Furosemide [Lasix] 40 mg PO BID@0900,1600 #60 tab 12/01/22 Allergies Allergy/AdvReac Type Severity Reaction Status Date / Time No Known Allergies Allergy Verified 11/28/22 21:34 Review of Systems ROS Statement: Those systems with pertinent positive or pertinent negative responses have been documented in the HPI. ROS Other: All systems not noted in ROS Statement are negative. 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 Last Myocardial Infarction Date:: 08/18/19 History of Any Multi-Drug Resistant Organisms: MRSA Date of last positivie culture/infection: 07/22/16 MDRO Source:: LOWER LEGS Past Surgical History: Cholecystectomy, Coronary Bypass/CABG, Heart Catheterization, Joint Replacement Additional Past Surgical History / Comment(s): PICC line insertion/removed, bilateral caract removals, COLONOSCOPY, EGD, CANCEROUS SKIN LESIONS REMOVED, TOTAL RIGHT KNEE REPLACEMENT, 06-04-16 QUAD BYPASS Past Anesthesia/Blood Transfusion Reactions: Previous Problems w/ Anesthesia Additional Past Anesthesia/Blood Transfusion Reaction / Comment(s): HAD A HARD TIME COMING OUT OF ANESTHESIA AFTER CHOLECYSTECTOMY Past Psychological History: No Psychological Hx Reported Smoking Status: Former smoker Past Alcohol Use History: None Reported Past Drug Use History: None Reported - Past Family History Father Family Medical History: Vascular Disorder Additional Family Medical History / Comment(s): POOR CIRCULATION-HAD AMPUTATIONS D/T POOR CIRCULATION Mother Family Medical History: Cancer Additional Family Medical History / Comment(s): STOMACH CANCER General Exam Limitations: no limitations General appearance: alert, in no apparent distress Head exam: Present: other (1 cm laceration of the forehead with mild active bleeding) Eye exam: Present: normal appearance, PERRL, EOMI. Absent: scleral icterus, conjunctival injection, periorbital swelling Respiratory exam: Present: normal lung sounds bilaterally. Absent: respiratory distress, wheezes, rales, rhonchi, stridor Cardiovascular Exam: Present: regular rate, normal rhythm, normal heart sounds. Absent: systolic murmur, diastolic murmur, rubs, gallop, clicks Extremities exam: Present: other (Superficial abrasion to the left knee with minor active bleeding) Neurological exam: Present: alert, oriented X3, CN II-XII intact Psychiatric exam: Present: normal affect, normal mood Course Vital Signs 02/14/23 02/14/23 12:01 14:24 Temperature 98.4 F 97.8 F Pulse Rate 49 L 56 L Respiratory 18 18 Rate Blood Pressure 108/95 114/52 O2 Sat by Pulse 96 97 Oximetry Medical Decision Making - Medical Decision Making This is an 82-year-old male who presents to the emergency department for a fall. Was pt. sent in by a medical professional or institution? @ -No Did you speak to anyone other than the patient for history? @ -No Did you review nursing and triage notes? @ -Yes, and I agree, it is accurate with regards to the patient's symptoms. Were old charts reviewed? @ -No Differential Diagnosis? @ -Differential Diagnosis Head Injury: -Contusion, hematoma, intracranial hemorrhage, skull fracture, whiplash, concussion, this is not meant to be an all-inclusive list. EKG interpreted by me (3pts min.)? @ -Not obtained X-rays interpreted by me (1pt min.)? @ -X-ray of the left knee obtained. My dictation identifies no acute fractures or dislocations. CT interpreted by me (1pt min.)? @ -Computed tomography scan of the brain and c-spine obtained. My interpretation identifies no evidence of an acute intracranial hemorrhage, skull fracture, or cervical spine fracture. U/S interpreted by me (1pt. min.)? @ -Not obtained What testing was considered but not performed? (CT, X-rays, U/S, labs)? Why? @ -None What meds were considered but not given? Why? @ -None Did you discuss the management of the patient with other professionals? @ -No Did you reconcile home meds? @ -No Was smoking cessation discussed for >3mins.? @ -No Was critical care preformed (if so, how long)? @ -No Were there social determinants of health that impacted care today? How? (Homelessness, low income, unemployed, alcoholism, drug addiction, transportation, low edu. Level, literacy, decrease access to med. care, shelter, rehab)? @ -No Was there de-escalation of care discussed even if they declined? (Discuss DNR or withdrawal of care, Hospice)? @ -No What co-morbidities impacted this encounter? (DM, HTN, Smoking, COPD, CAD, Cancer, CVA, Hep., AIDS, mental health diagnosis, sleep apnea, morbid obesity)? @ -Osteoarthritis Was patient admitted / discharged? @ -Discharged. Computed tomography scan of the brain/c-spine and x-ray of the left knee obtained revealing no acute findings. Patient declined the need for any pain medication in the emergency department. His abrasions were all superficial and no repair was required. Tetanus vaccine is already up-to-date. Advised ibuprofen and Tylenol as needed for pain relief and applying ice to the affected areas for 15-20 minutes every 2-3 hours. Undiagnosed new problem with uncertain prognosis? @ -None Drug Therapy requiring intensive monitoring for toxicity (Heparin, Nitro, Insulin, Cardizem)? @ -None Were any procedures done? @ -None Diagnosis/symptom? @ -Fall, head injury, left knee pain Acute, or Chronic, or Acute on Chronic? @ -Acute Uncomplicated (without systemic symptoms) or Complicated (systemic symptoms)? @ -Uncomplicated Side effects of treatment? @ -None Exacerbation, Progression, or Severe Exacerbation] @ -Not applicable Poses a threat to life or bodily function? @ -No Return precautions reviewed in depth, the patient is instructed to return to the emergency department with any new, worsening, or concerning symptoms. Patient verbalized understanding. This case was discussed in detail with the attending ED physician, Dr. Rico. Presentation, findings, and treatment plan discussed in detail as well. - Radiology Data Radiology results: report reviewed, image reviewed Disposition Clinical Impression: Fall, Head injury, Left knee pain Disposition: HOME SELF-CARE Instructions (If sedation given, give patient instructions): Fall Prevention for Older Adults (ED), Head Injury (ED) Additional Instructions: Return to the emergency department with any new, worsening, or concerning symptoms. Alternate with ibuprofen and Tylenol as needed for pain relief. Follow up with your primary care provider in 1-2 days. Is patient prescribed a controlled substance at d/c from ED?: No Referrals: Nonstaff,Physician [REFERRING] - 1-2 days
--- NOTE | 2023-02-14 13:31 | XR ---
EXAMINATION TYPE: XR knee complete LT DATE OF EXAM: 02/14/2023 COMPARISON: 07/25/2016 HISTORY: Pain TECHNIQUE: Three views are submitted. FINDINGS: Severe narrowing of medial compartment knee joint with moderate changes of lateral compartment and pa tellofemoral joint. There are marginal spurs involving the medial lateral compartments. Chronic appearing deformity of the tibial tubercle. Large spurs involving the anterior margins of pat jamal. There is a small amount of fluid in the suprapatellar bursa. Vascular details. Osseous structu res are intact. No acute fracture seen. IMPRESSION: 1. No acute fracture or dislocation. 2. Severe osteoarthritis
--- NOTE | 2023-02-14 13:45 | CT ---
EXAMINATION TYPE: CT brain cspine wo con DATE OF EXAM: 02/14/2023 COMPARISON: HISTORY: None CT DLP: 1665.9 mGycm Automated exposure control for dose reduction was used. TECHNIQUE: CT scan of the head and cervical spine are performed without contrast. FINDINGS: There is no acute intracranial hemorrhage, mass effect, or midline shift identified. Mode rate generalized degenerative change. Low attenuation in the white matter is nonspecific but most typ ical remote white matter ischemia. Asymmetry to the frontal soft tissue suggest a tiny subcutaneous a armando of edema or hematoma.. The globes are intact and the visualized sinuses are clear. Assessment spinal canal is limited due to artifact resolution there is multilevel degenerative change with facet arthropathy in posterior spondylosis. Large anterior hypertrophic spurring. Advanced dege nerative changes atlantoaxial joint. There is a moderate posterior pannus. There is a 5 mm right parotid nodule possibly related to a small lymph node. There is moderate athero sclerotic change of the bilateral carotid bifurcation. Postsurgical change involving the sternum. IMPRESSION: 1. There is no acute fracture or dislocation evident in the cervical spine. There is multilevel sever e degenerative disc disease, facet arthropathy and multilevel foraminal encroachment. 2. No acute intracranial hemorrhage, mass effect, or midline shift is seen.
[2023-02-14 14:26] VITALS: BP 114/52; PULSE 56; TEMP 97.8
== END 2023-02-14 14:25 | disposition home or self-care (01) ==
LOC: EC 11:58
DX: S01.81XA Laceration without foreign body of other part of head, initial encounter (principal); M25.562 Pain in left knee; E11.9 Type 2 diabetes mellitus without complications; E78.5 Hyperlipidemia, unspecified; I10 Essential (primary) hypertension; I21.9 Acute myocardial infarction, unspecified; Z87.891 Personal history of nicotine dependence; Z79.82 Long term (current) use of aspirin; Z79.899 Other long term (current) drug therapy; W01.0XXA Fall on same level from slipping, tripping and stumbling without subsequent striking against object, initial encounter
CPT/HCPCS: 70450; 72125

== ENCOUNTER 2023-05-19 05:01 | Observation (INO) | payer MEDICARE ==
[2023-05-19 05:10] LABS: Glucose,Whole Blood 111 mg/dL (70-110)
--- NOTE | 2023-05-19 05:16 | ED ---
Chest Pain HPI - General Stated Complaint: Chest pain Time Seen by Provider: 05/19/23 05:12 Source: RN notes reviewed, old records reviewed Mode of arrival: EMS Limitations: no limitations - History of Present Illness Initial Comments: This is a 83-year-old male to the emergency department for evaluation. Patient presents today for evaluation regards to weakness headache fatigue and chest pain. Patient had episodic chest pain throughout the night persistent here in the emergency for a but improved. Also some occasional shortness of breath. MD Complaint: chest pain -: hour(s) Onset: during rest, awoke with symptoms Pain Location: substernal Pain Radiation: none Severity: moderate Severity scale (1-10): 4 Consistency: intermittent Improves With: nothing, eating Anginal Symptoms: dyspnea Treatments Prior to Arrival: none - Related Data Home Medications Medication Instructions Recorded Confirmed allopurinoL [Zyloprim] 300 mg PO DAILY 07/22/16 05/19/23 Aspirin EC [Ecotrin Low Dose] 81 mg PO DAILY 09/20/18 05/19/23 HYDROcodone/APAP 7.5-325MG [[place] 1 tab PO BID 07/10/19 05/19/23 7.5-325] Magnesium Oxide [Magox 400] 400 mg PO HS 08/17/19 05/19/23 Turmeric Root Extract [Turmeric] 500 mg PO BID 08/17/19 05/19/23 Vitamin B Complex 1 cap PO DAILY 08/29/19 05/19/23 Ezetimibe [Zetia] 10 mg PO HS 10/24/21 05/19/23 Albuterol Inhaler [Ventolin Hfa 2 puff INHALATION RT-Q6H PRN 11/28/22 05/19/23 Inhaler] Atorvastatin [Lipitor] 80 mg PO HS 11/28/22 05/19/23 Levothyroxine Sodium [Synthroid] 88 mcg PO DAILY 11/28/22 05/19/23 Tamsulosin [Flomax] 0.4 mg PO BID 11/28/22 05/19/23 Cholecalciferol (Vitamin D3) 75 mcg PO HS 05/19/23 05/19/23 [Vitamin D3 (3000 Iu)] Colchicine [Colcrys] 0.6 mg PO DAILY 05/19/23 05/19/23 [place]-3 Fatty Acids [[place]-3] 1,000 mg PO HS 05/19/23 05/19/23 sitaGLIPtin [Januvia] 50 mg PO DAILY 05/19/23 05/19/23 Previous Rx's Medication Instructions Recorded Isosorbide Mononitrate ER [Imdur] 60 mg PO DAILY #30 tab 08/19/19 Nitroglycerin Sl Tabs [Nitrostat] 0.4 mg SUBLINGUAL Q5M PRN #25 tab 09/02/19 Dapagliflozin Propanediol [Farxiga] 10 mg PO DAILY 30 Days #30 tab 05/20/23 Furosemide [Lasix] 40 mg PO BID@0900,1600 30 Days #60 05/20/23 tab Metoprolol Tartrate [Lopressor] 100 mg PO BID 30 Days #120 tab 05/20/23 Allergies Allergy/AdvReac Type Severity Reaction Status Date / Time No Known Allergies Allergy Verified 05/19/23 07:12 Review of Systems ROS Statement: Those systems with pertinent positive or pertinent negative responses have been documented in the HPI. ROS Other: All systems not noted in ROS Statement are negative. EKG Findings - EKG Comments: EKG Findings:: EKG is A. fib 73 QRS 101 QTC 418 - EKG Results: EKG: interpreted by ERMD Past Medical History Past Medical History: Cancer, Diabetes Mellitus, Hyperlipidemia, Hypertension, Myocardial Infarction ([place]) Additional Past Medical History / Comment(s): SKIN CANCER , GOUT CHRONIC BACK Pain,SKIN LESIONS , 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 Last Myocardial Infarction Date:: 08/18/19 History of Any Multi-Drug Resistant Organisms: MRSA Date of last positivie culture/infection: 07/22/16 MDRO Source:: LOWER LEGS Past Surgical History: Cholecystectomy, Coronary Bypass/CABG, Heart Catheterization, Joint Replacement Additional Past Surgical History / Comment(s): PICC line insertion/removed, bilateral caract removals, COLONOSCOPY, EGD, CANCEROUS SKIN LESIONS REMOVED, TOTAL RIGHT KNEE REPLACEMENT, 06-04-16 QUAD BYPASS Past Anesthesia/Blood Transfusion Reactions: Previous Problems w/ Anesthesia Additional Past Anesthesia/Blood Transfusion Reaction / Comment(s): HAD A HARD TIME COMING OUT OF ANESTHESIA AFTER CHOLECYSTECTOMY Past Psychological History: No Psychological Hx Reported Smoking Status: Former smoker Past Alcohol Use History: None Reported Past Drug Use History: None Reported - Past Family History Father Family Medical History: Vascular Disorder Additional Family Medical History / Comment(s): POOR CIRCULATION-HAD AMPUTATIONS D/T POOR CIRCULATION Mother Family Medical History: Cancer Additional Family Medical History / Comment(s): STOMACH CANCER General Exam General appearance: alert, in no apparent distress, anxious Head exam: Present: atraumatic, normocephalic, normal inspection Eye exam: Present: normal appearance, PERRL, EOMI. Absent: scleral icterus, conjunctival injection, periorbital swelling ENT exam: Present: normal exam, mucous membranes moist Neck exam: Present: normal inspection. Absent: tenderness, meningismus, lymphadenopathy Respiratory exam: Present: normal lung sounds bilaterally. Absent: respiratory distress, wheezes, rales, rhonchi, stridor Cardiovascular Exam: Present: regular rate, normal rhythm, normal heart sounds. Absent: systolic murmur, diastolic murmur, rubs, gallop, clicks GI/Abdominal exam: Present: soft, normal bowel sounds. Absent: distended, tenderness, guarding, rebound, rigid Extremities exam: Present: normal inspection, full ROM, normal capillary refill. Absent: tenderness, pedal edema, joint swelling, calf tenderness Back exam: Present: normal inspection Neurological exam: Present: alert, oriented X3, CN II-XII intact Psychiatric exam: Present: normal affect, normal mood Skin exam: Present: warm, dry, intact, normal color. Absent: rash Course Vital Signs 05/19/23 05/19/23 05/19/23 05:02 06:13 08:45 Temperature 98.8 F Pulse Rate 76 63 65 Respiratory 20 18 20 Rate Blood Pressure 155/67 153/63 101/85 O2 Sat by Pulse 95 96 95 Oximetry - Reevaluation(s) Reevaluation #1: 05/19/23 05:51 Medical records reviewed Reevaluation #2: Patient symptoms remain here in the ER Reevaluation #3: Patient informed results questions answered Studies Chest x-rays negative for acute disease Reevaluation #4: 05/19/23 05:51 7Was pt. sent in by a medical professional or institution (, PA, AUTOMATIC STACKER, urgent care, hospital, or retirement...) When possible be specific @ -no Did you speak to anyone other than the patient for history (EMS, parent, family, police, friend...)? What history was obtained from this source @ -no Did you review nursing and triage notes (agree or disagree)? Why? @ -agree Are old charts reviewed (outside hosp., previous admission, EMS record, old EKG, old radiological studies, urgent care reports/EKG's, retirement records)? Report findings @ -yes Differential Diagnosis (chest pain, altered mental status, abdominal pain women, abdominal pain men, vaginal bleeding, weakness, fever, dyspnea, syncope, headache, dizziness, GI bleed, back pain, seizure, CVA, palpatations, mental health, musculoskeletal)? @ -prior EKG interpreted by me (3pts min.). @ -yes X-rays interpreted by me (1pt min.). @ -yes CT interpreted by me (1pt min.). @ -no U/S interpreted by me (1pt. min.). @ -no What testing was considered but not performed or refused? (CT, X-rays, U/S, labs)? Why? @ -none What meds were considered but not given or refused? Why? @ -none Did you discuss the management of the patient with other professionals (professionals i.e. , PA, AUTOMATIC STACKER, lab, RT, psych nurse, social service worker, primary substance abuse counselor, teacher, mortgage loan officer originator, senior case manager)? Give summary @ -no Was smoking cessation discussed for >3mins.? @ -no Was critical care preformed (if so, how long)? @ -no Were there social determinants of health that impacted care today? How? (Homelessness, low income, unemployed, alcoholism, drug addiction, transportation, low edu. Level, literacy, decrease access to med. care, half-way, rehab)? @ -none Was there de-escalation of care discussed even if they declined (Discuss DNR or withdrawal of care, Hospice)? DNR status @ -no What co-morbidities impacted this encounter? (DM, HTN, Smoking, COPD, CAD, Cancer, CVA, ARF, Chemo, Hep., AIDS, mental health diagnosis, sleep apnea, morbid obesity)? @ -none Was patient admitted / discharged? Hospital course, mention meds given and route, prescriptions, significant lab abnormalities, going to OR and other pertinent info. @ - Undiagnosed new problem with uncertain prognosis? @ -no Drug Therapy requiring intensive monitoring for toxicity (Heparin, Nitro, Insulin, Cardizem)? @ -no Were any procedures done? @ -no Diagnosis/symptom? @ - Acute, or Chronic, or Acute on Chronic? @ -Acute Uncomplicated (without systemic symptoms) or Complicated (systemic symptoms)? @ -Complicated Side effects of treatment? @ -no Exacerbation, Progression, or Severe Exacerbation? @ -exacerbation Poses a threat to life or bodily function? How? (Chest pain, [place], [place], pneumonia, PE, COPD, DKA, ARF, appy, cholecystitis, CVA, Diverticulitis, Homicidal, Suicidal, threat to staff... and all critical care pts) @ -yes Reevaluation #5: 05/19/23 05:52 Differential Chest Pain: Stable Angina, Unstable Angina, STEMI, NSTEMI Aortic Dissection, Pneumothorax, Musculoskeletal, Esophageal Spasm GERD, Cholecystitis, Pancreatitis, Zoster, this is not meant to be an all-inclusive list. - Consultations Consultation #1: Spoke with admitting physicians will admit Chest Pain MDM - [facility] 83 male to be admitted for chest pain, chest pain observation with history of CABG and CAD Disposition Clinical Impression: Obesities, morbid, S/P CABG (coronary artery bypass graft), Chest pain Disposition: ADMITTED IP TO THIS HOSP Condition: Fair Is patient prescribed a controlled substance at d/c from ED?: No Time of Disposition: 06:40
[2023-05-19 05:39] LABS: Basophils # (A) 0.1 k/uL (0-0.2); Basophils % (A) 1 %; Eosinophils # (A) 0.3 k/uL (0-0.7); Eosinophils % (A) 4 %; HCT 35.6 % (39.0-53.0); Lymphocytes # (A) 1.6 k/uL (1.0-4.8); Lymphocytes % (A) 18 %; MCH 34.9 pg (25.0-35.0); MCHC 33.6 g/dL (31.0-37.0); Macrocytosis Moderate; Monocytes # (A) 0.5 k/uL (0-1.0); Monocytes % (A) 5 %; Neutrophils # (A) 6.7 k/uL (1.3-7.7); Neutrophils % (A) 72 %; Platelet Count 208 k/uL (150-450); RBC 3.43 m/uL (4.30-5.90); RDW 14.4 % (11.5-15.5); WBC 9.3 k/uL (3.8-10.6)
[2023-05-19 05:56] LABS: Partial Thromboplastin Time 22.4 sec (22.0-30.0); Prothrombin Time 10.7 sec (10.0-12.5)
[2023-05-19 06:13] LABS: ALT 21 U/L (4-49); AST 23 U/L (17-59); African American GFR (CKD) 54 (>60 ml/min/1.73 sqM); Albumin 3.8 g/dL (3.5-5.0); Alkaline Phosphatase 88 U/L (38-126); Anion Gap 11 mmol/L; Blood Urea Nitrogen 45 mg/dL (9-20); Calcium 9.1 mg/dL (8.4-10.2); Carbon Dioxide 23 mmol/L (22-30); Chloride 107 mmol/L (98-107); Glucose 109 mg/dL (74-99); Lipase 241 U/L (23-300); Magnesium 1.9 mg/dL (1.6-2.3); Non-African American GFR(CKD) 47 (>60 ml/min/1.73 sqM); Potassium 4.5 mmol/L (3.5-5.1); Sodium 141 mmol/L (137-145); Total Bilirubin 0.6 mg/dL (0.2-1.3); Total Protein 6.2 g/dL (6.3-8.2)
[2023-05-19 06:20] LABS: NT-Pro-B-Type Natriuretic Pept 3830 pg/mL
[2023-05-19] MEDS ORDERED: SODIUM CHLORIDE 0.9% 1,000 ML IV ONE (06:20)
[2023-05-19] MEDS ORDERED: NALOXONE 0.4 MG/ML 1 ML VIAL IV PRN (06:39)
[2023-05-19] MEDS ORDERED: ONDANSETRON 4 MG/2 ML VIAL IVP PRN (06:39)
[2023-05-19] MEDS ORDERED: MORPHINE SULFATE 4 MG/ML SYRINGE IV PRN (06:39)
--- NOTE | 2023-05-19 07:06 | XR ---
EXAM: XR Chest, 1 View CLINICAL HISTORY: Chest Pain TECHNIQUE: Frontal view of the chest. COMPARISON: No relevant prior studies available. FINDINGS: Lungs: Appearance of a band of atelectasis in the right lung. Pleural space: Unremarkable. No pneumothorax or pleural fluid. Heart: Unremarkable. No cardiomegaly. Mediastinum: Unremarkable. Bones/joints: Degenerative changes in both shoulders, worse on the right. IMPRESSION: Appearance of a band of atelectasis in the right lung.
[2023-05-19] MEDS ORDERED: REGADENOSON 0.4 MG/5 ML SYRINGE IV PRN (08:18)
[2023-05-19] MEDS ORDERED: AMINOPHYLLINE 500 MG/20 ML VIAL IV PRN (08:18)
[2023-05-19] MEDS ORDERED: CAFFEINE CITRATE 60 MG/3 ML VIAL IV PRN (08:18)
--- NOTE | 2023-05-19 08:39 | P.CRDCN ---
History of Present Illness Consult date: 05/19/23 History of present illness: History of Present Illness: The patient is an 83-year-old male with a known history of CAD who presented with symptoms of chest discomfort, left-sided in addition to severe back discomfort. He is followed on a regular basis by Dr. Teran, status post CABG with 4 bypasses in 2016 and recent stenting [place] [address] Schmitz to the SVG to the diagonal branch. At that time the JUNE to the LAD and SVG to the diagonal were patent was chronic occlusion of the SVG to the RCA and ramus intermedius. He had the discomfort yesterday, persistent. He is very limited in his physical activity, he has dyspnea on exertion and significant peripheral edema. He was admitted to the hospital in November of this year with symptoms of CHF and cellulitis. An echocardiogram obtained during that admission showed a preserved systolic function with mild mitral and tricuspid regurgitation. The patient denies any dizziness or palpitations, he denies any syncope. He has a history of hypertension, hyperlipidemia and diabetes. He is a nonsmoker. Medications: Januvia, hydralazine 50 g twice a day, Flomax, metoprolol 150 g twice a day, Synthroid, Lasix 40 mg daily, Lipitor 80 mg daily, aspirin once a day,Ezetimibe 10 mg daily, Ventolin, colchicine Review of Systems: Respiratory: He has dyspnea on exertion with occasional cough GI: No nausea or vomiting . No history of peptic ulcer disease. No recent GI bleed. : No hematuria or dysuria. Nervous System: No stroke or seizure. He has severe back discomfort Physical Examination: 83-year-old male, alert and oriented and severe back discomfort ,Blood pressure 153/63, Heart rate 63 Head: Normocephalic. Eyes: Sclerae nonicteric. Neck: Good carotid upstroke, no bruit, no jugular venous distention. Lungs: Clear to auscultation with few crackles at the bases. Heart: Irregular rate and rhythm, S1-S2, no S3, no rub. Systolic ejection murmur. Abdomen: Soft nontender, positive bowel sounds no organomegaly. Obese Extremities: +2 edema, intact distal pulses. Chronic skin changes Labs: Hemoglobin 12, BUN 45, creatinine 1.41, potassium 4.5, troponin less than 0.012, NT proBNP 3830. Chest x-ray was possible atelectasis EKG: We'll baseline multiple PVCs, A. fib versus sinus with PACs, on the monitor appears to be sinus Impression: 1. Symptoms of chest discomfort, rule out angina pectoris in a patient with known history of severe CAD status post CABG and PCI 2. Rule out atrial fibrillation 3. History of hypertension 4. CHF with preserved systolic function 5. History of diabetes 6. History of hypertension 7. History of hyperlipidemia Plan: 1. Obtain an echocardiogram with Doppler 2. Obtain a nuclear stress test 3. Repeat EKG 4. IV diuretics 5. Start Farxiga 10 mg daily 6. Depending on the results of the testing further recommendations will be made, thank you for this consult we will follow with you. Past Medical History Past Medical History: Cancer, Diabetes Mellitus, Hyperlipidemia, Hypertension, Myocardial Infarction ([place]) Additional Past Medical History / Comment(s): SKIN CANCER , GOUT CHRONIC BACK Pain,SKIN LESIONS , 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 Last Myocardial Infarction Date:: 08/18/19 History of Any Multi-Drug Resistant Organisms: MRSA Date of last positivie culture/infection: 07/22/16 MDRO Source:: LOWER LEGS Past Surgical History: Cholecystectomy, Coronary Bypass/CABG, Heart Catheterization, Joint Replacement Additional Past Surgical History / Comment(s): PICC line insertion/removed, bilateral caract removals, COLONOSCOPY, EGD, CANCEROUS SKIN LESIONS REMOVED, TOTAL RIGHT KNEE REPLACEMENT, 06-04-16 QUAD BYPASS Past Anesthesia/Blood Transfusion Reactions: Previous Problems w/ Anesthesia Additional Past Anesthesia/Blood Transfusion Reaction / Comment(s): HAD A HARD TIME COMING OUT OF ANESTHESIA AFTER CHOLECYSTECTOMY Past Psychological History: No Psychological Hx Reported Smoking Status: Former smoker Past Alcohol Use History: None Reported Past Drug Use History: None Reported - Past Family History Father Family Medical History: Vascular Disorder Additional Family Medical History / Comment(s): POOR CIRCULATION-HAD AMPUTATIONS D/T POOR CIRCULATION Mother Family Medical History: Cancer Additional Family Medical History / Comment(s): STOMACH CANCER Medications and Allergies Home Medications Medication Instructions Recorded Confirmed Type allopurinoL [Zyloprim] 300 mg PO DAILY 07/22/16 05/19/23 History Metoprolol Tartrate [Lopressor] 150 mg PO BID 10/25/16 05/19/23 History Aspirin EC [Ecotrin Low Dose] 81 mg PO DAILY 09/20/18 05/19/23 History HYDROcodone/APAP 7.5-325MG [[place] 1 tab PO BID 07/10/19 05/19/23 History 7.5-325] Magnesium Oxide [Magox 400] 400 mg PO HS 08/17/19 05/19/23 History Turmeric Root Extract [Turmeric] 500 mg PO BID 08/17/19 05/19/23 History Isosorbide Mononitrate ER [Imdur] 60 mg PO DAILY #30 tab 08/19/19 05/19/23 Rx Vitamin B Complex 1 cap PO DAILY 08/29/19 05/19/23 History Nitroglycerin Sl Tabs [Nitrostat] 0.4 mg SUBLINGUAL Q5M PRN #25 tab 09/02/19 05/19/23 Rx hydrALAZINE HCL [Apresoline] 50 mg PO BID 07/26/20 05/19/23 History Ezetimibe [Zetia] 10 mg PO HS 10/24/21 05/19/23 History Albuterol Inhaler [Ventolin Hfa 2 puff INHALATION RT-Q6H PRN 11/28/22 05/19/23 History Inhaler] Atorvastatin [Lipitor] 80 mg PO HS 11/28/22 05/19/23 History Levothyroxine Sodium [Synthroid] 88 mcg PO DAILY 11/28/22 05/19/23 History Tamsulosin [Flomax] 0.4 mg PO BID 11/28/22 05/19/23 History Cholecalciferol (Vitamin D3) 75 mcg PO HS 05/19/23 05/19/23 History [Vitamin D3 (3000 Iu)] Colchicine [Colcrys] 0.6 mg PO DAILY 05/19/23 05/19/23 History Furosemide [Lasix] 40 mg PO DAILY 05/19/23 05/19/23 History [place]-3 Fatty Acids [[place]-3] 1,000 mg PO HS 05/19/23 05/19/23 History sitaGLIPtin [Januvia] 50 mg PO DAILY 05/19/23 05/19/23 History Allergies Allergy/AdvReac Type Severity Reaction Status Date / Time No Known Allergies Allergy Verified 05/19/23 07:12 Physical Exam Vitals: Vital Signs Temp Pulse Resp BP Pulse Ox 05/19/23 06:13 63 18 153/63 96 05/19/23 05:02 98.8 F 76 20 155/67 95 Intake and Output 05/18/23 05/19/23 05/19/23 22:59 06:59 14:59 Other: Weight 134.263 kg Results 05/19/23 05:15 05/19/23 05:15 Cardiac Enzymes 05/19/23 05/19/23 Range/Units 05:15 05:15 AST 23 (17-59) U/L Troponin I <0.012 (0.000-0.034) ng/mL Coagulation 05/19/23 Range/Units 05:15 PT 10.7 (10.0-12.5) sec APTT 22.4 (22.0-30.0) sec CBC 05/19/23 Range/Units 05:15 WBC 9.3 (3.8-10.6) k/uL RBC 3.43 L (4.30-5.90) m/uL Hgb 12.0 L (13.0-17.5) gm/dL Hct 35.6 L (39.0-53.0) % Plt Count 208 (150-450) k/uL Comprehensive Metabolic Panel 05/19/23 Range/Units 05:15 Sodium 141 (137-145) mmol/L Potassium 4.5 (3.5-5.1) mmol/L Chloride 107 (98-107) mmol/L Carbon Dioxide 23 (22-30) mmol/L BUN 45 H (9-20) mg/dL Creatinine 1.41 H (0.66-1.25) mg/dL Glucose 109 H (74-99) mg/dL Calcium 9.1 (8.4-10.2) mg/dL AST 23 (17-59) U/L ALT 21 (4-49) U/L Alkaline Phosphatase 88 (38-126) U/L Total Protein 6.2 L (6.3-8.2) g/dL Albumin 3.8 (3.5-5.0) g/dL Current Medications Generic Name Dose Route Start Last Admin Trade Name Freq PRN Reason Stop Dose Admin Aminophylline 100 mg 05/19/23 08:18 Aminophylline 500 Mg/20 Ml Vial IV 05/19/23 12:18 ONCE PRN Patient Response Aspirin 81 mg 05/19/23 09:00 Aspirin 81 Mg PO DAILY [facility] Atorvastatin Calcium 80 mg 05/19/23 21:00 Atorvastatin 80 Mg Tab PO HS [facility] Caffeine Citrate 60 mg 05/19/23 08:18 Caffeine Citrate 60 Mg/3 Ml Vial IV 05/19/23 12:18 ONCE PRN Patient Response Ezetimibe 10 mg 05/19/23 21:00 Ezetimibe 10 Mg Tab PO HS [facility] Furosemide 40 mg 05/19/23 09:00 Furosemide 10 Mg/Ml 4 Ml Vial IV Q12HR [facility] Hydralazine HCl 50 mg 05/19/23 09:00 Hydralazine Hcl 50 Mg Tab PO BID [facility] Isosorbide Mononitrate 60 mg 05/19/23 09:00 Isosorbide Mononitrate Er 60 Mg Tab.Er.24h PO DAILY [facility] Levothyroxine Sodium 88 mcg 05/19/23 09:00 Levothyroxine 88 Mcg Tab PO DAILY@0630 [facility] Linagliptin 5 mg 05/19/23 09:00 Linagliptin 5 Mg Tablet PO DAILY [facility] Metoprolol Tartrate 100 mg 05/19/23 09:00 Metoprolol Tartrate 50 Mg Tab PO BID [facility] Morphine Sulfate 4 mg 05/19/23 06:39 05/19/23 07:52 Morphine Sulfate 4 Mg/Ml Syringe IV 4 mg Q4HR PRN Administration Severe Pain (Scale 7 to 10) Naloxone HCl 0.2 mg 05/19/23 06:39 Naloxone 0.4 Mg/Ml 1 Ml Vial IV Q2M PRN Opioid Reversal Ondansetron HCl 4 mg 05/19/23 06:39 05/19/23 07:51 Ondansetron 4 Mg/2 Ml Vial IVP 4 mg Q8HR PRN Administration Nausea And Vomiting Regadenoson 0.4 mg 05/19/23 08:18 Regadenoson 0.4 Mg/5 Ml Syringe IV 05/19/23 12:18 ONCE PRN Per Protocol Tamsulosin HCl 0.4 mg 05/19/23 09:00 Tamsulosin 0.4 Mg Cap.Er.24h PO BID [facility] Intake and Output 05/18/23 05/19/23 05/19/23 22:59 06:59 14:59 Other: Weight 134.263 kg 05/19/23 05:15 05/19/23 05:15
[2023-05-19] MEDS ORDERED: hydrALAZINE HCL 50 MG TAB PO SCH (09:00)
--- NOTE | 2023-05-19 09:27 | CT ---
EXAMINATION TYPE: CT angio chest CT DLP: 913.6 mGycm, Automated exposure control for dose reduction was used. DATE OF EXAM: 05/19/2023 9:16 AM COMPARISON: Pet/CT 10/12/2021, CT abdomen pelvis 10/25/2022, CT Angio 05/31/2016. CLINICAL INDICATION:Male, 83 years old with history of PE; PE TECHNIQUE/CONTRAST: CTA scan of the thorax is performed without and with IV Contrast, patient injected with 100 ml mL of Isovue 370, MIP images are created and reviewed these are created on a separate workstation.. FINDINGS: Pulmonary Artery: There is no evidence for a filling defect within the pulmonary vasculature to sugge st acute pulmonary embolism. The pulmonary artery is enlarged measuring up to 3.8 cm Lungs/Pleura: No evidence of focal consolidation, pleural effusion or pneumothorax. There is a new pu lmonary nodule in the middle lobe measuring 9 x 7 mm. Airway: Large airways are patent. Heart: No evidence mildly enlarged for size with moderate to severe coronary artery atherosclerosis. Vasculature: No evidence of aortic aneurysm. Mediastinum: No gross evidence of adenopathy. Musculoskeletal: No acute osseous abnormalities, sternotomy changes. Multilevel degeneration changes to the spine with bridging osteophytes/calcification of the anterior longitudinal ligament compatible with diffuse idiopathic skeletal hyperostosis. Soft Tissues: Unremarkable. Lower neck: No significant findings. Upper Abdomen: No significant findings. IMPRESSION: 1. No evidence of pulmonary embolism. 2. Pulmonary hypertension 3. Spiculated right middle lobe pulmonary nodule. New from prior 10/12/2021. Further workup recommended consider pet/CT or short-term follow up in 3 months. 4. Diffuse idiopathic skeletal hyperostosis.
--- NOTE | 2023-05-19 11:51 | CA ---
Lexiscan Nuclear Stress Test Report Name: Bobby Lyn Exam Date: 05/19/2023 11:12 Exam Location: [place] Stress Ht (in): 72 Wt (lb): 296 BSA: 2.52 Ordering Phys: Feliz Rausch MD Referring Phys: MARCELINO, Technologist: REINA, Age: 83 Gender: M : 1940 Procedure CPT: Indications: Reflex order-Stress test ICD-10 Codes: Patient History: Chest pain Medications: Meds past 24 hrs: Pretest Chest Pain: STRESS TEST Lexiscan Protocol Exercise Duration (min:sec): 02:[address] Depressions (mm): Angina Score: Avelar Score: Resting HR (bpm): 73 Peak HR (bpm): 87 Resting BP (mmHg): 148 / 107 Peak BP (mmHg): 186 / 61 MPHR: 139 Target HR: 118 % MPHR: 63 METS: 1.0 Total Dose: Peak Dose: Atropine: Double Product: 72234 BP Response: Stress Termination: Infusion complete Stress Symptoms: No chest pain or symptoms Stress Summary: ECG ANALYSIS Resting ECG: Sinus rhythm. Normal conduction. Ventricular premature contraction. Normal repolarization. Stress ECG: No ECG changes from baseline with Lexiscan infusion. Ventricular premature contraction. CONCLUSIONS No ECG evidence of ischemia with Lexiscan infusion. Frequent ventricular ectopic activity was episodes of bigeminy nuclear test results to follow. Dr. Feliz Rausch MD (Electronically Signed) Final Date: 19 May 2023 11:51
[2023-05-19 12:43] LABS: Glucose,Whole Blood 129 mg/dL (70-110)
--- NOTE | 2023-05-19 12:47 | NM ---
EXAMINATION TYPE: NM stress lexiscan cardiolite DATE OF EXAM: 05/19/2023 COMPARISON: NONE CLINICAL INDICATION: Male, 83 years old with history of chest pain; TECHNIQUE: After the intravenous administration of 10.5 mCi Tc 99m Sestamibi - Cardiolite resting SP ECT images acquired 45 minutes post injection. The patient received 0.4mg Lexiscan, 26.8 mCi Tc 99m Sestamibi - Stress images obtained [address] injection FINDINGS: Review of stress and rest SPECT images demonstrates predominantly fixed defect involving the inferior lateral myocardium. Gated analysis shows normal wall motion with an estimated left ventricular ejec tion fraction of 43 %. IMPRESSION: 1. Predominantly fixed defect involving the inferior lateral myocardium. Tiny area of stress-induced reversible ischemia are not entirely excluded. 2. Ejection fraction 43%..
[2023-05-19] MEDS: FUROSEMIDE 10 MG/ML 4 ML VIAL IV SCH ×2 (12:49→23:38)
[2023-05-19] MEDS: ISOSORBIDE MONONITRATE ER 60 MG TAB.ER.24H PO SCH (12:49)
[2023-05-19] MEDS: METOPROLOL TARTRATE 50 MG TAB PO SCH ×2 (12:50→23:38)
[2023-05-19] MEDS: DAPAGLIFLOZIN PROPANEDIOL 10 MG TABLET PO SCH (12:50)
[2023-05-19] MEDS: TAMSULOSIN 0.4 MG CAP.ER.24H PO SCH ×2 (12:50→21:06)
[2023-05-19] MEDS: LINAGLIPTIN 5 MG TABLET PO SCH (12:50)
[2023-05-19] MEDS: ASPIRIN 81 MG PO SCH (12:50)
[2023-05-19 12:54] VITALS: RESP 16
[2023-05-19] MEDS: LEVOTHYROXINE 88 MCG TAB PO SCH (13:28)
[2023-05-19] MEDS ORDERED: ALBUTEROL NEBULIZED 2.5 MG/3 ML INHALATION PRN (14:02)
[2023-05-19] MEDS: HYDROcodone/APAP 7.5-325MG 1 EACH TAB PO SCH ×2 (15:06→21:00)
[2023-05-19] MEDS ORDERED: DEXTROSE 50% SYRINGE 50 ML IVP PRN ×2 (18:10)
--- NOTE | 2023-05-19 18:10 | P.HPIM ---
History of Present Illness H&P Date: 05/19/23 This is a pleasant 83-year-old male who presented to the emergency department via EMS with increased weakness and fatigue and chest pain with increased shortness of breath. Patient follows with Dr. Caceres in the outpatient setting with a past medical history of diabetes mellitus, hyperlipidemia, hypertension, previous myocardial infarction, history of skin cancer, gout, chronic back pain, lymphoma, admits to being a former smoker and denies illicit drug use or alcohol use. EKG showed atrial fibrillation with PVCs, chest x-ray showed appearance of a band of atelectasis in the right lung. Labs reviewed with no white count of 9.3, hemoglobin was stable at 12.0, platelets are 208, d-dimer was done which was 1.40, sodium 141 with a potassium of 4.5, BUN is 45 with a creatinine of 1.41 although does have chronic kidney disease, magnesium 1.9, troponins 2 were negative, BNP was 3830 and lipase was 241. Patient was admitted for cardiac evaluation under observation status. Review Of Systems: Constitutional: No fever, no chills, no night sweats. No weight change. Reports of increased weakness, fatigue and lethargy. No daytime sleepiness. EENT: No headache. No blurred vision or double vision, no loss of vision. No loss of Hearing, no ringing in the ears, no dizziness. No nasal drainage or congestion. No epistaxis. No sore throat. Lungs: Reports increased shortness of breath, cough, no sputum production. No wheezing. Cardiovascular: Reports chest pain, reports bilateral lower extremity edema. No palpitations. No paroxysmal nocturnal dyspnea. No orthopnea. No lig htheadedness or dizziness. No syncopal episodes. Abdominal: No abdominal pain. No nausea, vomiting. No diarrhea. No constipation. No bloody or tarry stools.. No loss of appetite. Genitourinary: No dysuria, increased frequency, urgency. No urinary retention. Musculoskeletal: No myalgias. No muscle weakness, no gait dysfunction, no frequent falls. No back pain. No neck pain. Integumentary: No wounds, no lesions. No rash or pruritus. No unusual bruising. No change in hair or nails. Neurologic: No aphasia. No facial droop. No change in mentation. No head injury. No headache. No paralysis. No paresthesia. Psychiatric: No depression. No anxiety. No mood swings. Endocrine: No abnormal blood sugars. No weight change. No excessive sweating or thirst. No cold intolerance. PHYSICAL EXAMINATION: GENERAL: The patient is alert and oriented x4, Well developed, well nourished. Morbidly obese HEENT: Pupils are round and equally reacting to light. EOMI. no scleral icterus. No conjunctival pallor. Normocephalic, atraumatic. No pharyngeal erythema. No thyromegaly. CARDIOVASCULAR: S1 and S2 muffled PULMONARY: diminished breath sounds bilaterally with some scattered rhonchi noted. ABDOMEN: soft. Nontender on exam. obese. non-distended, normoactive bowel sounds. No palpable organomegaly. MUSCULOSKELETAL: No joint swelling or deformity. EXTREMITIES: No cyanosis, clubbing, or pedal edema. Bilateral lower extremity edema NEUROLOGICAL: Gross neurological examination did not reveal any focal deficits. Diffuse weakness SKIN: No rashes. Assessment: Chest pain , rule out acute coronary syndrome Abnormal stress testing with possible area of reversible ischemia noted and patient will undergo cardiac catheterization in a.m. History of coronary artery disease status post CABG and PCI stenting Acute on chronic systolic heart failure with acute exacerbation with preserved systolic function History of diabetes mellitus Hypertension history Hyperlipidemia Former smoker Morbid obesity with a BMI of 40.1 GI prophylaxis DVT prophylaxis Full code Plan: Recommend to continue with current medications and management with cardiology following. Patient was evaluated by cardiology recommending undergoing stress test which showed concerns of a predominantly fixed defect involving the inferior lateral myocardium at tiny area of stress induced reversible ischemia not entirely excluded, EF was 43%. Patient will be placed on IV heparin and cardiology recommending cardiac catheterization. Patient will be nothing by mouth at midnight Patient with chronic kidney disease currently at his baseline was started on IV Lasix for an acute CHF exacerbation. BNP was over 3000 Will follow-up on repeat labs in the a.m. Recommend PT/OT therapy evaluation Will add sliding scale with Accu-Cheks before meals and at bedtime The impression and plan of care has been dictated by Yumiko Eller, nurse practitioner as directed. Dr. Mona MD I have performed a history and examination and MDM of this patient, discussed the same with the dictator, and agree with the dictator's assessment and plan as written ,documented as a scribe. Based on total visit time, I have performed more than 50% of the visit. Any additional findings or plans will be noted. Past Medical History Past Medical History: Cancer, Diabetes Mellitus, Hyperlipidemia, Hypertension, Myocardial Infarction (MS) Additional Past Medical History / Comment(s): SKIN CANCER , GOUT CHRONIC BACK Pain,SKIN LESIONS , 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 Last Myocardial Infarction Date:: 08/18/19 History of Any Multi-Drug Resistant Organisms: MRSA Date of last positivie culture/infection: 07/22/16 MDRO Source:: LOWER LEGS Past Surgical History: Cholecystectomy, Coronary Bypass/CABG, Heart Catheterization, Joint Replacement Additional Past Surgical History / Comment(s): PICC line insertion/removed, bilateral caract removals, COLONOSCOPY, EGD, CANCEROUS SKIN LESIONS REMOVED, TOTAL RIGHT KNEE REPLACEMENT, 06-04-16 QUAD BYPASS Past Anesthesia/Blood Transfusion Reactions: Previous Problems w/ Anesthesia Additional Past Anesthesia/Blood Transfusion Reaction / Comment(s): HAD A HARD TIME COMING OUT OF ANESTHESIA AFTER CHOLECYSTECTOMY Past Psychological History: No Psychological Hx Reported Smoking Status: Former smoker Past Alcohol Use History: None Reported Past Drug Use History: None Reported - Past Family History Father Family Medical History: Vascular Disorder Additional Family Medical History / Comment(s): POOR CIRCULATION-HAD AMPUTATIONS D/T POOR CIRCULATION Mother Family Medical History: Cancer Additional Family Medical History / Comment(s): STOMACH CANCER Medications and Allergies Home Medications Medication Instructions Recorded Confirmed Type allopurinoL [Zyloprim] 300 mg PO DAILY 07/22/16 05/19/23 History Metoprolol Tartrate [Lopressor] 150 mg PO BID 10/25/16 05/19/23 History Aspirin EC [Ecotrin Low Dose] 81 mg PO DAILY 09/20/18 05/19/23 History HYDROcodone/APAP 7.5-325MG [[place] 1 tab PO BID 07/10/19 05/19/23 History 7.5-325] Magnesium Oxide [Magox 400] 400 mg PO HS 08/17/19 05/19/23 History Turmeric Root Extract [Turmeric] 500 mg PO BID 08/17/19 05/19/23 History Isosorbide Mononitrate ER [Imdur] 60 mg PO DAILY #30 tab 08/19/19 05/19/23 Rx Vitamin B Complex 1 cap PO DAILY 08/29/19 05/19/23 History Nitroglycerin Sl Tabs [Nitrostat] 0.4 mg SUBLINGUAL Q5M PRN #25 tab 09/02/19 05/19/23 Rx hydrALAZINE HCL [Apresoline] 50 mg PO BID 07/26/20 05/19/23 History Ezetimibe [Zetia] 10 mg PO HS 10/24/21 05/19/23 History Albuterol Inhaler [Ventolin Hfa 2 puff INHALATION RT-Q6H PRN 11/28/22 05/19/23 History Inhaler] Atorvastatin [Lipitor] 80 mg PO HS 11/28/22 05/19/23 History Levothyroxine Sodium [Synthroid] 88 mcg PO DAILY 11/28/22 05/19/23 History Tamsulosin [Flomax] 0.4 mg PO BID 11/28/22 05/19/23 History Cholecalciferol (Vitamin D3) 75 mcg PO HS 05/19/23 05/19/23 History [Vitamin D3 (3000 Iu)] Colchicine [Colcrys] 0.6 mg PO DAILY 05/19/23 05/19/23 History Furosemide [Lasix] 40 mg PO DAILY 05/19/23 05/19/23 History [place]-3 Fatty Acids [[place]-3] 1,000 mg PO HS 05/19/23 05/19/23 History sitaGLIPtin [Januvia] 50 mg PO DAILY 05/19/23 05/19/23 History Allergies Allergy/AdvReac Type Severity Reaction Status Date / Time No Known Allergies Allergy Verified 05/19/23 07:12 Physical Exam Vitals: Vital Signs Temp Pulse Resp BP Pulse Ox 05/19/23 08:45 65 20 101/85 95 05/19/23 06:13 63 18 153/63 96 05/19/23 05:02 98.8 F 76 20 155/67 95 Intake and Output 05/18/23 05/19/23 05/19/23 22:59 06:59 14:59 Other: Weight 134.263 kg Results CBC & Chem 7: 05/19/23 05:15 05/19/23 05:15 Labs: Abnormal Lab Results - Last 24 Hours (Table) 05/19/23 05/19/23 05/19/23 Range/Units 05:08 05:15 05:15 RBC 3.43 L (4.30-5.90) m/uL Hgb 12.0 L (13.0-17.5) gm/dL Hct 35.6 L (39.0-53.0) % MCV 104.0 H (80.0-100.0) fL D-Dimer 1.40 H (<0.60) mg/L FEU BUN (9-20) mg/dL Creatinine (0.66-1.25) mg/dL Glucose (74-99) mg/dL POC Glucose (mg/dL) 111 H (70-110) mg/dL Total Protein (6.3-8.2) g/dL 05/19/23 Range/Units 05:15 RBC (4.30-5.90) m/uL Hgb (13.0-17.5) gm/dL Hct (39.0-53.0) % MCV (80.0-100.0) fL D-Dimer (<0.60) mg/L FEU BUN 45 H (9-20) mg/dL Creatinine 1.41 H (0.66-1.25) mg/dL Glucose 109 H (74-99) mg/dL POC Glucose (mg/dL) (70-110) mg/dL Total Protein 6.2 L (6.3-8.2) g/dL Thrombosis Risk Factor Assmnt - DVT/VTE Prophylaxis DVT/VTE Prophylaxis: Pharmacologic Prophylaxis ordered Assessment and Plan Time with Patient: Greater than 30
[2023-05-19] MEDS ORDERED: CHOLECALCIFEROL 25 MCG (1000 IU) TABLET PO SCH (21:00)
[2023-05-19] MEDS ORDERED: ATORVASTATIN 80 MG TAB PO SCH (21:00)
[2023-05-19] MEDS ORDERED: NON FORMULARY DRUG (Omega-3 Fatty Acids [Omega-3] 1,000 MG Capsule) PO SCH (21:00)
[2023-05-19] MEDS ORDERED: NON FORMULARY DRUG (Turmeric Root Extract [Turmeric] 500 MG Capsule) PO SCH (21:00)
[2023-05-19] MEDS ORDERED: EZETIMIBE 10 MG TAB PO SCH (21:00)
[2023-05-19] MEDS: HEPARIN SODIUM,PORCINE 5,000 UNIT/ML 1 ML VIAL SQ SCH (21:06)
[2023-05-19 21:19] LABS: Glucose,Whole Blood 112 mg/dL (70-110)
[2023-05-19] MEDS: INSULIN ASPART (NovoLOG) 100 UNIT/ML VIAL SQ SCH (21:20)
[2023-05-20] MEDS: LEVOTHYROXINE 88 MCG TAB PO SCH (06:18)
[2023-05-20 06:25] LABS: Glucose,Whole Blood 109 mg/dL (70-110)
[2023-05-20] MEDS: INSULIN ASPART (NovoLOG) 100 UNIT/ML VIAL SQ SCH ×2 (06:35→13:11)
--- NOTE | 2023-05-20 07:01 | CA ---
Transthoracic Echo Report Name: Bobby Lyn Age: 83 Gender: M : 1940 Exam Date: 05/19/2023 13:23 Exam Location: [place] [facility] Ht (in): 72 Wt (lb): 296 Ordering Physician: Feliz Rausch MD ([id number]) Attending/Referring Phys: [facility] Mindy Robles RDCS Procedure CPT: Indications: CAD Cardiac Hx: Technical Quality: Technically difficult study Contrast 1: Definity Total Dose (mL): 2 Contrast 2: Total Dose (mL): MEASUREMENTS (Male / Female) Normal Values 2D ECHO LV Diastolic Diameter PLAX 5.0 cm 4.2 - 5.9 / 3.9 - 5.3 cm LV Systolic Diameter PLAX 3.2 cm IVS Diastolic Thickness 1.7 cm 0.6 - 1.0 / 0.6 - 0.9 cm LVPW Diastolic Thickness 1.7 cm 0.6 - 1.0 / 0.6 - 0.9 cm LV Relative Wall Thickness 0.7 LA Volume 92.2 cm??? 18 - 58 / 22 - 52 cm??? LA Volume Index 34.5 cm???/m??? 16 - 28 cm???/m??? M-MODE Aortic Root Diameter MM 4.0 cm LA Systolic Diameter MM 4.8 cm LA Ao Ratio MM 1.2 AV Cusp Separation MM 2.2 cm DOPPLER AV Peak Velocity 101.9 cm/s AV Peak Gradient 4.1 mmHg AV Mean Velocity 61.0 cm/s AV Mean Gradient 1.7 mmHg AV Velocity Time Integral 22.8 cm LVOT Peak Velocity 87.3 cm/s LVOT Peak Gradient 3.0 mmHg LVOT Velocity Time Integral 18.5 cm MV Area PHT 2.4 cm??? Mitral E Point Velocity 80.9 cm/s Mitral A Point Velocity 80.9 cm/s Mitral E to A Ratio 1.0 MV Deceleration Time 322.5 ms MV E' Velocity 4.9 cm/s Mitral E to MV E' Ratio 16.4 FINDINGS Left Ventricle Severely increased left ventricular wall thickness. Left ventricular cavity size normal. Normal left ventricular systolic function with no obvious regional wall motion abnormalities. Left ventricular ejection fraction is estimated at 50-55 %. Right Ventricle Right ventricle not well visualized. Right Atrium Right atrium not well visualized. Left Atrium Moderately increased left atrial volume. Mildly increased left atrial area. Mitral Valve Mitral valve not well visualized. . Mild mitral regurgitation. Aortic Valve Aortic valve not well visualized. Tricuspid Valve Tricuspid valve not well visualized. Pulmonic Valve Pulmonic valve not well visualized. Pericardium No pericardial effusion. Aorta Normal size aortic root and proximal ascending aorta. CONCLUSIONS Technically difficult study. Definity ECHO contrast used for improved visualization of the endocardial borders (inadequate visualization of two or more contiguous segments). Left ventricle systolic function borderline normal with no clear segmental wall motion abnormalities Very limited Doppler study Previewed by: Dr. Feliz Rausch MD (Electronically Signed) Final Date: 20 May 2023 07:00
[2023-05-20 07:30] LABS: African American GFR (CKD) 45 (>60 ml/min/1.73 sqM); Anion Gap 11 mmol/L; Blood Urea Nitrogen 42 mg/dL (9-20); Calcium 9.1 mg/dL (8.4-10.2); Carbon Dioxide 24 mmol/L (22-30); Chloride 106 mmol/L (98-107); Glucose 100 mg/dL (74-99); Non-African American GFR(CKD) 39 (>60 ml/min/1.73 sqM); Potassium 4.3 mmol/L (3.5-5.1); Sodium 141 mmol/L (137-145)
[2023-05-20] MEDS ORDERED: allopurinoL 300 MG TAB PO SCH (09:00)
[2023-05-20] MEDS ORDERED: COLCHICINE 0.6 MG EACH PO SCH (09:00)
[2023-05-20] MEDS ORDERED: NON FORMULARY DRUG (Vitamin B Complex [Vitamin B Complex] 1 EACH Capsule) PO SCH (09:00)
[2023-05-20] MEDS: ASPIRIN 81 MG PO SCH (09:16)
[2023-05-20] MEDS: METOPROLOL TARTRATE 50 MG TAB PO SCH (09:16)
[2023-05-20] MEDS: LINAGLIPTIN 5 MG TABLET PO SCH (09:17)
[2023-05-20] MEDS: FUROSEMIDE 10 MG/ML 4 ML VIAL IV SCH (09:17)
[2023-05-20] MEDS: HEPARIN SODIUM,PORCINE 5,000 UNIT/ML 1 ML VIAL SQ SCH (09:17)
[2023-05-20] MEDS: ISOSORBIDE MONONITRATE ER 60 MG TAB.ER.24H PO SCH (09:17)
[2023-05-20] MEDS: DAPAGLIFLOZIN PROPANEDIOL 10 MG TABLET PO SCH (09:17)
[2023-05-20] MEDS: TAMSULOSIN 0.4 MG CAP.ER.24H PO SCH (09:18)
--- NOTE | 2023-05-20 09:58 | P.PN ---
Subjective Progress Note Date: 05/20/23 The patient is an 83-year-old male with a known history of CAD who presented with symptoms of chest discomfort, left-sided in addition to severe back discomfort. He is followed on a regular basis by Dr. Teran, status post CABG with 4 bypasses in 2015 and recent stenting [place] [address] Schmitz to the SVG to the diagonal branch. At that time the JUNE to the LAD and SVG to the diagonal were patent was chronic occlusion of the SVG to the RCA and ramus intermedius. He had the discomfort yesterday, persistent. He is very limited in his physical activity, he has dyspnea on exertion and significant peripheral edema. He was admitted to the hospital in November of this year with symptoms of CHF and cellulitis. An echocardiogram obtained during that admission showed a preserved systolic function with mild mitral and tricuspid regurgitation. The patient denies any dizziness or palpitations, he denies any syncope. He has a history of hypertension, hyperlipidemia and diabetes. He is a nonsmoker. 05/20/2023 Patient was seen and examined resting in a chair. He is overall feeling better. His edema has improved. He continues on IV Lasix 40 mg twice a day. Lexiscan MPI showed a predominantly fixed defect involving the inferior lateral wall with an ejection fraction of 43%. Echocardiogram with Doppler study of a very limited and Definity was used showed a borderline normal LV systolic function with an ejection fraction of 50-55% and no clear segmental wall motion abnormalities. Objective - Vital Signs Vital signs: Vital Signs Temp 98.0 F 05/20/23 07:00 Pulse 65 05/20/23 07:00 Resp 16 05/20/23 07:00 BP 140/58 05/20/23 07:00 Pulse Ox 95 05/20/23 07:00 FiO2 Intake & Output 05/19/23 05/20/23 05/20/23 18:59 06:59 18:59 Intake Total 118 Balance 118 Weight 134.263 kg Intake: Oral 118 Other: # Voids 1 3 1 - Exam Head: Normocephalic. Eyes: Sclerae nonicteric. Neck: Good carotid upstroke, no bruit, no jugular venous distention. Lungs: Clear to auscultation with few crackles at the bases. Heart: Regular rate and rhythm, S1-S2, no S3, no rub. Systolic ejection murmur. Abdomen: Soft nontender, positive bowel sounds no organomegaly. Obese Extremities: +1 edema, intact distal pulses. Chronic skin changes - Labs CBC & Chem 7: 05/19/23 05:15 05/20/23 06:18 Labs: Abnormal Lab Results - Last 24 Hours (Table) 05/19/23 05/19/23 05/20/23 Range/Units 12:41 21:17 06:18 BUN 42 H (9-20) mg/dL Creatinine 1.62 H (0.66-1.25) mg/dL Glucose 100 H (74-99) mg/dL POC Glucose (mg/dL) 129 H 112 H (70-110) mg/dL Assessment and Plan Assessment: 1. Symptoms of chest discomfort, acute coronary event has been ruled out 2. History of hypertension 3. CHF with preserved systolic function 4. History of diabetes 5. History of hypertension 6. History of hyperlipidemia Plan: From cardiology's perspective medications were reviewed. We'll switch to oral Lasix. We anticipate the patient will be discharged home in the next 24 hours. CONDENSER OPERATOR note has been reviewed, I agree with a documented findings and plan of care. Patient was seen and examined.
[2023-05-20] MEDS: HYDROcodone/APAP 7.5-325MG 1 EACH TAB PO SCH (12:03)
[2023-05-20 12:12] LABS: Glucose,Whole Blood 117 mg/dL (70-110)
[2023-05-20 14:49] VITALS: BP 92/45; PULSE 60; TEMP 97.6
[2023-05-20] MEDS ORDERED: FUROSEMIDE 40 MG TAB PO SCH (16:00)
--- NOTE | 2023-05-23 09:58 | P.DS ---
Providers Date of admission: 05/19/23 18:17 Expected date of discharge: 05/20/23 Attending physician: Luwdig Le Consults: 05/19/23 06:39 Consult Physician Routine Consulting Provider: Feliz Rausch Consult Reason/Comments: cp Do you want consulting provider notified?: Yes Primary care physician: Crow Caceres Hospital Course: Final diagnosis Chest pain , ruled out acute coronary syndrome Abnormal stress testing with possible area of reversible ischemia, patient follow-up with cardiology outpatient per cardiology recommendations History of coronary artery disease status post CABG and PCI stenting Acute on chronic systolic heart failure with acute exacerbation with preserved systolic function History of diabetes mellitus Hypertension history Hyperlipidemia Former smoker Morbid obesity with a BMI of 40.1 GI prophylaxis DVT prophylaxis Full code Discharge disposition Patient is being discharged in a stable condition with guarded prognosis to home. Patient will follow-up with Dr. Caceres in the outpatient setting upon discharge. Patient is to continue with oral Lasix 40 mg twice daily and outpatient follow-up with labs. Cardiology recommending follow-up in 1-2 weeks as scheduled. Patient to follow-up with pulmonary outpatient as well. Total time taken is greater than 35 minutes. Hospital course This is a 83-year-old male who was recently admitted with chest pain, ACS ruled out with history of CHF. Patient evaluated by cardiology with lower extremity edema in acute CHF exacerbation. Patient was diuresed with IV Lasix and will continue on oral Lasix with close outpatient follow-up in 1-2 weeks. Patient reports to feeling significantly improved in his lower extremity swelling is improved. Patient would like to go home. Patient has been cleared by cardiology. Please refer to cardiology consult notes for further HPI. Patient also instructed to use compression stockings and/or Boris wraps from the toes up to the knees bilaterally of lower extremities and elevating while at rest. Patient currently on room air and denies any chest pain. Patient did undergo stress testing with concerns of a possible acute area of reversible ischemia although cardiology feels the stress testing was within normal limits. Again patient will follow-up with cardiology in 1-2 weeks. Currently no reports of chest pain, shortness of breath, or palpitations. Patient is afebrile. No reports of nausea or vomiting and patient is tolerating diet. Patient will be discharged home today. High risk for readmissions given patient's significant comorbidities. Physical exam: Gen: This is a 83-year-old male who is awake, alert and oriented 3, well- developed, well-nourished, morbidly obese HEENT: Head is atraumatic, normocephalic. Pupils equal, round. Sclerae is anicteric. NECK: Supple. No JVD. No lymphadenopathy. No thyromegaly. LUNGS: Clear to auscultation. No wheezes or rhonchi. No crackles noted No intercostal retractions. HEART: Regular rate and rhythm. No murmur. ABDOMEN: Soft. Obese. Bowel sounds are present. No masses. No tenderness. EXTREMITIES: No pedal edema. No calf tenderness. Bilateral lower extremity edema has improved NEUROLOGICAL: Patient is awake, alert and oriented x3. Cranial nerves 2 through 12 are grossly intact. Please refer to medication reconciliation sheet for a list of medications. The impression and plan of care has been dictated by Yumiko Eller, Nurse Practitioner as directed. Dr. Mona MD I have performed a history and examination and MDM of this patient, discussed th e same with the dictator, and agree with the dictator's assessment and plan as written ,documented as a scribe. Based on total visit time, I have performed more than 50% of the visit. Patient Condition at Discharge: Fair Plan - Discharge Summary New Discharge Prescriptions: New Metoprolol Tartrate [Lopressor] 100 mg PO BID 30 Days #120 tab Dapagliflozin Propanediol [Farxiga] 10 mg PO DAILY 30 Days #30 tab Furosemide [Lasix] 40 mg PO BID@0900,1600 30 Days #60 tab Continue allopurinoL [Zyloprim] 300 mg PO DAILY Aspirin EC [Ecotrin Low Dose] 81 mg PO DAILY HYDROcodone/APAP 7.5-325MG [[place] 7.5-325] 1 tab PO BID Turmeric Root Extract [Turmeric] 500 mg PO BID Magnesium Oxide [Magox 400] 400 mg PO HS Isosorbide Mononitrate ER [Imdur] 60 mg PO DAILY #30 tab Vitamin B Complex 1 cap PO DAILY Nitroglycerin Sl Tabs [Nitrostat] 0.4 mg SUBLINGUAL Q5M PRN #25 tab PRN Reason: Chest Pain Ezetimibe [Zetia] 10 mg PO HS Albuterol Inhaler [Ventolin Hfa Inhaler] 2 puff INHALATION RT-Q6H PRN PRN Reason: Shortness Of Breath Tamsulosin [Flomax] 0.4 mg PO BID Colchicine [Colcrys] 0.6 mg PO DAILY Cholecalciferol (Vitamin D3) [Vitamin D3 (3000 Iu)] 75 mcg PO HS Levothyroxine Sodium [Synthroid] 88 mcg PO DAILY Atorvastatin [Lipitor] 80 mg PO HS [place]-3 Fatty Acids [[place]-3] 1,000 mg PO HS sitaGLIPtin [Januvia] 50 mg PO DAILY Discontinued Metoprolol Tartrate [Lopressor] 150 mg PO BID hydrALAZINE HCL [Apresoline] 50 mg PO BID Furosemide [Lasix] 40 mg PO DAILY Discharge Medication List allopurinoL [Zyloprim] 300 mg PO DAILY 07/22/16 [History] Aspirin EC [Ecotrin Low Dose] 81 mg PO DAILY 09/20/18 [History] HYDROcodone/APAP 7.5-325MG [[place] 7.5-325] 1 tab PO BID 07/10/19 [History] Magnesium Oxide [Magox 400] 400 mg PO HS 08/17/19 [History] Turmeric Root Extract [Turmeric] 500 mg PO BID 08/17/19 [History] Isosorbide Mononitrate ER [Imdur] 60 mg PO DAILY #30 tab 08/19/19 [Rx] Vitamin B Complex 1 cap PO DAILY 08/29/19 [History] Nitroglycerin Sl Tabs [Nitrostat] 0.4 mg SUBLINGUAL Q5M PRN #25 tab 09/02/19 [Rx] Ezetimibe [Zetia] 10 mg PO HS 10/24/21 [History] Albuterol Inhaler [Ventolin Hfa Inhaler] 2 puff INHALATION RT-Q6H PRN 11/28/22 [History] Atorvastatin [Lipitor] 80 mg PO HS 11/28/22 [History] Levothyroxine Sodium [Synthroid] 88 mcg PO DAILY 11/28/22 [History] Tamsulosin [Flomax] 0.4 mg PO BID 11/28/22 [History] Cholecalciferol (Vitamin D3) [Vitamin D3 (3000 Iu)] 75 mcg PO HS 05/19/23 [History] Colchicine [Colcrys] 0.6 mg PO DAILY 05/19/23 [History] [place]-3 Fatty Acids [[place]-3] 1,000 mg PO HS 05/19/23 [History] sitaGLIPtin [Januvia] 50 mg PO DAILY 05/19/23 [History] Dapagliflozin Propanediol [Farxiga] 10 mg PO DAILY 30 Days #30 tab 05/20/23 [Rx] Furosemide [Lasix] 40 mg PO BID@0900,1600 30 Days #60 tab 05/20/23 [Rx] Metoprolol Tartrate [Lopressor] 100 mg PO BID 30 Days #120 tab 05/20/23 [Rx] Follow up Appointment(s)/Referral(s): Felice Ferreira DO [Doctor of Osteopathic Medicine] - 1 Week (please call for an appointment ) Crow Caceres DO [Primary Care Provider] - 1-2 days (please call for an appointment ) [facility] [place] [NON-STAFF] - 1-2 Days (Staff will call to schedule an appointment 24-48 hours after discharge. ) Piotr Teran MD [STAFF PHYSICIAN] - 05/29/23 3:15 pm Patient Instructions/Handouts: Chest Pain (GEN) Activity/Diet/Wound Care/Special Instructions: Activity Limited until follow-up Follow-up with primary care provider on discharge Follow-up of pulmonary outpatient Follow up with cardiology in one week Continue taking medications as prescribed Continue to use Boris wraps to lower extremities from the toes up to the knees and elevate, rest and will use compression stockings Discharge Disposition: HOME WITH HOME HEALTH SERVICES
== END 2023-05-20 15:15 | disposition home health service (06) ==
LOC: EC 05:01 → 6NMEDSUR 06:39 → OBSVTOIN 18:17 → INTOOBSV 18:17 → UNDODISIN 05-20 15:15
PROVIDERS: ADMIT Hospitalist; ATTEND Hospitalist
DX: R07.89 Other chest pain (principal); I13.0 Hypertensive heart and chronic kidney disease with heart failure and stage 1 through stage 4 chronic kidney disease, or unspecified chronic kidney disease; I25.810 Atherosclerosis of coronary artery bypass graft(s) without angina pectoris; I50.33 Acute on chronic diastolic (congestive) heart failure; N18.9 Chronic kidney disease, unspecified; E11.22 Type 2 diabetes mellitus with diabetic chronic kidney disease; E66.01 Morbid (severe) obesity due to excess calories; Z68.41 Body mass index [BMI] 40.0-44.9, adult; R94.39 Abnormal result of other cardiovascular function study; I25.10 Atherosclerotic heart disease of native coronary artery without angina pectoris; E78.5 Hyperlipidemia, unspecified; I25.2 Old myocardial infarction; G89.29 Other chronic pain; M54.9 Dorsalgia, unspecified; M10.9 Gout, unspecified; Z96.651 Presence of right artificial knee joint; Z87.891 Personal history of nicotine dependence; Z95.5 Presence of coronary angioplasty implant and graft; Z95.1 Presence of aortocoronary bypass graft; Z85.72 Personal history of non-Hodgkin lymphomas; Z92.21 Personal history of antineoplastic chemotherapy; Z85.828 Personal history of other malignant neoplasm of skin; Z86.14 Personal history of Methicillin resistant Staphylococcus aureus infection; Z90.49 Acquired absence of other specified parts of digestive tract; Z79.899 Other long term (current) drug therapy; Z79.82 Long term (current) use of aspirin; Z79.891 Long term (current) use of opiate analgesic; Z79.890 Hormone replacement therapy; Z79.84 Long term (current) use of oral hypoglycemic drugs
CPT/HCPCS: 96376 ×2; 96361 ×3; 96372 ×2; 96375 ×2; 96374; 99285; 36415; 93005; 93017; 85379; 83880; 80053; 80048; 83690; 83735; 84484; 85025; 85610; 85730; 83036; 71045; 71275; 78452; G0378 ×2; C8929; A9500; J2270; J1644 ×2; J1940 ×2; J2405; Q9957; J2785; Q9967; 93306

== ENCOUNTER → 2023-08-14 | Outpatient (CLI) | payer MEDICARE ==
--- NOTE | 2023-08-14 19:49 | US ---
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 Bilateral Jets seen: Yes Normal Post Void Residual: NA IMPRESSION: Limited detailed assessment of the kidneys due to patient body habitus. No evident hydronephrosis.
== END | disposition home or self-care (01) ==
LOC: RADUSWWP 15:28
PROVIDERS: ATTEND Internal Medicine
DX: N18.32 Chronic kidney disease, stage 3b (principal)
CPT/HCPCS: 76770

== ENCOUNTER → 2023-08-27 | Outpatient (CLI) | payer MEDICARE ==
[2023-08-27 16:54] LABS: ALT 14 U/L (10-49); AST 18 U/L (14-35); Albumin 4.2 g/dL (3.8-4.9); Alkaline Phosphatase 98 U/L (41-126); Blood Urea Nitrogen 18.8 mg/dL (9.0-27.0); Calcium 9.3 mg/dL (8.7-10.3); Carbon Dioxide 23.2 mmol/L (21.6-31.8); Chloride 103 mmol/L (96-109); Chol/HDL Ratio 2.46 Ratio; Globulin 2.1 g/dL (1.6-3.3); Glucose 94 mg/dL (70-110); LDL Cholesterol,Calculated 49.8 mg/dL (0.0-131.0); Magnesium 1.9 mg/dL (1.5-2.4); Phosphorus 3.3 mg/dL (2.4-5.1); Potassium 4.1 mmol/L (3.5-5.5); Sodium 139 mmol/L (135-145); Total Bilirubin 0.6 mg/dL (0.3-1.2); Total Protein 6.3 g/dL (6.2-8.2); VLDL Calculation 10.72 mg/dL (5.00-40.00)
== END | disposition home or self-care (01) ==
LOC: LABWHC1 09:06
PROVIDERS: ATTEND Internal Medicine
DX: N18.32 Chronic kidney disease, stage 3b (principal)
CPT/HCPCS: 36415; 80053; 80061; 83735; 83970; 84100; 84443

== ENCOUNTER 2023-08-31 12:59 | Inpatient (IN) | payer MEDICARE ==
--- NOTE | 2023-08-31 13:36 | ED ---
Chest Pain HPI - General Chief Complaint: Chest Pain Stated Complaint: chest pain Time Seen by Provider: 08/31/23 13:10 Source: patient Mode of arrival: ambulatory Limitations: no limitations - History of Present Illness Initial Comments: 83-year-old male with past medical history of congestive heart failure, diabetes, coronary disease with bypass who presents emergency department reporting chest pain. States that he had a left-sided stabbing pain in his chest which started around 2 AM. Pain only last for a couple of seconds before it resolves. Has been going on throughout the morning. has noticed that he has had a nonproductive cough and appears to be more short of breath. Patient has some lower extremity edema however they state that it is chronic for him. He does take Lasix 40 mg daily. Denies any numbness, tingling or weakness into his extremities. No fevers. states that he has been extremely weak overall and this is what prompted her to bring him into the emergency department. - Related Data Home Medications Medication Instructions Recorded Confirmed allopurinoL [Zyloprim] 300 mg PO DAILY 07/22/16 08/31/23 Aspirin EC [Ecotrin Low Dose] 81 mg PO DAILY 09/20/18 08/31/23 HYDROcodone/APAP 7.5-325MG [[place] 1 tab PO BID 07/10/19 08/31/23 7.5-325] Magnesium Oxide [Magox 400] 400 mg PO HS 08/17/19 08/31/23 Turmeric Root Extract [Turmeric] 500 mg PO BID 08/17/19 08/31/23 Vitamin B Complex 1 cap PO DAILY 08/29/19 08/31/23 Ezetimibe [Zetia] 10 mg PO HS 10/24/21 08/31/23 Albuterol Inhaler [Ventolin Hfa 2 puff INHALATION RT-Q6H PRN 11/28/22 08/31/23 Inhaler] Atorvastatin [Lipitor] 80 mg PO HS 11/28/22 08/31/23 Levothyroxine Sodium [Synthroid] 88 mcg PO DAILY 11/28/22 08/31/23 Tamsulosin [Flomax] 0.4 mg PO BID 11/28/22 08/31/23 Cholecalciferol (Vitamin D3) 75 mcg PO HS 05/19/23 08/31/23 [Vitamin D3 (3000 Iu)] Colchicine [Colcrys] 0.6 mg PO DAILY PRN 05/19/23 08/31/23 sitaGLIPtin [Januvia] 50 mg PO DAILY 05/19/23 08/31/23 Albuterol Nebulized [Ventolin 2.5 mg INHALATION RT-Q6H PRN 08/31/23 08/31/23 Nebulized] Empagliflozin [Jardiance] 10 mg PO DIRECTED 08/31/23 08/31/23 Furosemide [Lasix] 40 mg PO DAILY 08/31/23 08/31/23 Melatonin 5 mg PO HS PRN 08/31/23 08/31/23 Previous Rx's Medication Instructions Recorded Isosorbide Mononitrate ER [Imdur] 60 mg PO DAILY #30 tab 08/19/19 Nitroglycerin Sl Tabs [Nitrostat] 0.4 mg SUBLINGUAL Q5M PRN #25 tab 09/02/19 Metoprolol Tartrate [Lopressor] 100 mg PO BID 30 Days #120 tab 05/20/23 Allergies Allergy/AdvReac Type Severity Reaction Status Date / Time No Known Allergies Allergy Verified 08/31/23 16:04 Review of Systems ROS Statement: Those systems with pertinent positive or pertinent negative responses have been documented in the HPI. ROS Other: All systems not noted in ROS Statement are negative. Past Medical History Past Medical History: Cancer, Diabetes Mellitus, Hyperlipidemia, Hypertension, Myocardial Infarction (OR) Additional Past Medical History / Comment(s): SKIN CANCER , GOUT CHRONIC BACK Pain,SKIN LESIONS , 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 Last Myocardial Infarction Date:: 08/18/19 History of Any Multi-Drug Resistant Organisms: MRSA Date of last positivie culture/infection: 07/22/16 MDRO Source:: LOWER LEGS Past Surgical History: Cholecystectomy, Coronary Bypass/CABG, Heart Catheterization, Joint Replacement Additional Past Surgical History / Comment(s): PICC line insertion/removed, bilateral caract removals, COLONOSCOPY, EGD, CANCEROUS SKIN LESIONS REMOVED, TOTAL RIGHT KNEE REPLACEMENT, 06-04-16 QUAD BYPASS Past Anesthesia/Blood Transfusion Reactions: Previous Problems w/ Anesthesia Additional Past Anesthesia/Blood Transfusion Reaction / Comment(s): HAD A HARD TIME COMING OUT OF ANESTHESIA AFTER CHOLECYSTECTOMY Past Psychological History: No Psychological Hx Reported Smoking Status: Former smoker Past Alcohol Use History: None Reported Past Drug Use History: None Reported - Past Family History Father Family Medical History: Vascular Disorder Additional Family Medical History / Comment(s): POOR CIRCULATION-HAD AMPUTATIONS D/T POOR CIRCULATION Mother Family Medical History: Cancer Additional Family Medical History / Comment(s): STOMACH CANCER General Exam Limitations: no limitations General appearance: alert, in no apparent distress Head exam: Present: atraumatic, normocephalic, normal inspection Eye exam: Present: normal appearance, PERRL, EOMI. Absent: scleral icterus, conjunctival injection, periorbital swelling ENT exam: Present: normal exam, mucous membranes moist Neck exam: Present: normal inspection. Absent: tenderness, meningismus, lymphadenopathy Respiratory exam: Present: rales. Absent: respiratory distress, wheezes, rhonchi, stridor Cardiovascular Exam: Present: regular rate, normal rhythm, normal heart sounds. Absent: systolic murmur, diastolic murmur, rubs, gallop, clicks GI/Abdominal exam: Present: soft, normal bowel sounds. Absent: distended, tenderness, guarding, rebound, rigid Extremities exam: Present: normal inspection, full ROM, normal capillary refill, pedal edema. Absent: tenderness, joint swelling, calf tenderness Back exam: Present: normal inspection Neurological exam: Present: alert, oriented X3, CN II-XII intact Psychiatric exam: Present: normal affect, normal mood Skin exam: Present: warm, dry, intact, normal color. Absent: rash Course Vital Signs 08/31/23 08/31/23 08/31/23 13:07 14:24 15:33 Temperature 98.4 F Pulse Rate 64 61 59 L Respiratory 22 18 18 Rate Blood Pressure 189/94 174/79 174/82 O2 Sat by Pulse 94 L 95 95 Oximetry 08/31/23 16:13 Temperature Pulse Rate 52 L Respiratory 18 Rate Blood Pressure 164/87 O2 Sat by Pulse 97 Oximetry Chest Pain MDM - MDM Was pt. sent in by a medical professional or institution (, PA, ASSISTANT NURSE MANAGER, urgent care, hospital, or longterm...) When possible be specific @ -No Did you speak to anyone other than the patient for history (EMS, parent, family, police, friend...)? What history was obtained from this source @ -Spoke with the for history Did you review nursing and triage notes (agree or disagree)? Why? @ -I reviewed and agree with nursing and triage notes Were old charts reviewed (outside hosp., previous admission, EMS record, old EKG, old radiological studies, urgent care reports/EKG's, longterm records)? Report findings @ -No old charts were reviewed Differential Diagnosis (chest pain, altered mental status, abdominal pain women, abdominal pain men, vaginal bleeding, weakness, fever, dyspnea, syncope, headache, dizziness, GI bleed, back pain, seizure, CVA, palpatations, mental health, musculoskeletal)? @ -Differential Chest Pain: Stable Angina, Unstable Angina, STEMI, NSTEMI Aortic Dissection, Pneumothorax, Musculoskeletal, Esophageal Spasm GERD, Cholecystitis, Pancreatitis, Zoster, this is not meant to be an all-inclusive list. EKG interpreted by me (3pts min.). @ -Yes and demonstrates normal sinus rhythm with PVCs with a rate of 75. QRS 105. QTc of 427. No acute ST segment elevations or depressions X-rays interpreted by me (1pt min.). @ -Yes and demonstrates pulmonary vascular edema CT interpreted by me (1pt min.). @ -None done U/S interpreted by me (1pt. min.). @ -None done What testing was considered but not performed or refused? (CT, X-rays, U/S, labs)? Why? @ -None What meds were considered but not given or refused? Why? @ -None Did you discuss the management of the patient with other professionals (professionals i.e. , PA, ASSISTANT NURSE MANAGER, lab, RT, psych nurse, transition social worker, nut sorter, teacher, senior escrow officer, case resource manager)? Give summary @ -Spoke with Dr. Pruitt for admission Was smoking cessation discussed for >3mins.? @ -No Was critical care preformed (if so, how long)? @ -No Were there social determinants of health that impacted care today? How? (Homelessness, low income, unemployed, alcoholism, drug addiction, transportati on, low edu. Level, literacy, decrease access to med. care, nursing home, rehab)? @ -No Was there de-escalation of care discussed even if they declined (Discuss DNR or withdrawal of care, Hospice)? DNR status @ -No What co-morbidities impacted this encounter? (DM, HTN, Smoking, COPD, CAD, Cancer, CVA, ARF, Chemo, Hep., AIDS, mental health diagnosis, sleep apnea, morbid obesity)? @ -CHF Was patient admitted / discharged? Hospital course, mention meds given and route, prescriptions, significant lab abnormalities, going to OR and other pertinent info. @ -Admitted. Upon arrival patient was placed into room 7. Thorough history and physical exam was performed. IV access established and laboratory studies are conducted. Twelve-lead EKG was completed. Chest x-ray was performed. Patient does demonstrate signs of congestive heart failure. He was given a dose of Lasix. Recommended admission for cardiology consultation. Spoke with Dr. Fermin for admission Undiagnosed new problem with uncertain prognosis? @ -Yes Drug Therapy requiring intensive monitoring for toxicity (Heparin, Nitro, Insulin, Cardizem)? @ -No Were any procedures done? @ -No Diagnosis/symptom? @ -Acute chest pain, acute exacerbation of CHF, accelerated hypertension Acute, or Chronic, or Acute on Chronic? @ -Acute Uncomplicated (without systemic symptoms) or Complicated (systemic symptoms)? @ -Complicated Side effects of treatment? @ -No Exacerbation, Progression, or Severe Exacerbation? @ -Yes Poses a threat to life or bodily function? How? (Chest pain, [place], OR, pneumonia, PE, COPD, DKA, ARF, appy, cholecystitis, CVA, Diverticulitis, Homicidal, Suicidal, threat to staff... and all critical care pts) @ -No Disposition Clinical Impression: Chest pain, Acute exacerbation of CHF (congestive heart failure) Disposition: ADMITTED IP TO THIS [facility] Condition: Stable Is patient prescribed a controlled substance at d/c from ED?: No Time of Disposition: 15:49 Decision to Admit Reason: Admit from EC Decision Date: 08/31/23 Decision Time: 15:49
[2023-08-31 13:46] LABS: Basophils # (A) 0.1 k/uL (0-0.2); Basophils % (A) 1 %; Eosinophils # (A) 0.4 k/uL (0-0.7); Eosinophils % (A) 4 %; HCT 40.2 % (39.0-53.0); HGB 13.4 gm/dL (13.0-17.5); Lymphocytes # (A) 1.5 k/uL (1.0-4.8); Lymphocytes % (A) 13 %; MCH 34.2 pg (25.0-35.0); MCHC 33.2 g/dL (31.0-37.0); MCV 102.8 fL (80.0-100.0); Macrocytosis Slight; Mean Platelet Volume 7.6; Monocytes # (A) 0.6 k/uL (0-1.0); Monocytes % (A) 5 %; Neutrophils # (A) 8.7 k/uL (1.3-7.7); Neutrophils % (A) 76 %; Platelet Count 231 k/uL (150-450); RBC 3.91 m/uL (4.30-5.90); RDW 14.4 % (11.5-15.5); WBC 11.4 k/uL (3.8-10.6)
[2023-08-31 13:57] LABS: Prothrombin Time 11.2 sec (10.0-12.5)
[2023-08-31 14:21] LABS: ALT 15 U/L (4-49); AST 28 U/L (17-59); African American GFR (CKD) 86 (>60 ml/min/1.73 sqM); Albumin 4.1 g/dL (3.5-5.0); Alkaline Phosphatase 97 U/L (38-126); Anion Gap 9 mmol/L; Blood Urea Nitrogen 23 mg/dL (9-20); Calcium 9.3 mg/dL (8.4-10.2); Carbon Dioxide 23 mmol/L (22-30); Chloride 107 mmol/L (98-107); Glucose 100 mg/dL (74-99); Lipase 266 U/L (23-300); Magnesium 1.8 mg/dL (1.6-2.3); Non-African American GFR(CKD) 74 (>60 ml/min/1.73 sqM); Potassium 4.3 mmol/L (3.5-5.1); Sodium 139 mmol/L (137-145); Total Bilirubin 0.8 mg/dL (0.2-1.3); Total Protein 6.4 g/dL (6.3-8.2)
[2023-08-31 14:30] LABS: NT-Pro-B-Type Natriuretic Pept 8570 pg/mL
--- NOTE | 2023-08-31 14:35 | XR ---
EXAMINATION TYPE: XR chest 2V DATE OF EXAM: 08/31/2023 2:06 PM CLINICAL INDICATION:Male, 83 years old with history of Chest Pain; [facility] COMPARISON: Chest radiographs from 05/19/2023. TECHNIQUE: XR chest 2V Frontal and lateral views of the chest. FINDINGS: Lungs/Pleura: There is no evidence of pleural effusion, focal consolidation, or pneumothorax. Pulmonary vascularity: Pulmonary vascular congestion. Heart/mediastinum: Cardiomediastinal silhouette is enlarged and stable. Musculoskeletal: No acute osseous pathology. Midline sternotomy wires are noted. Other findings: None IMPRESSION: Cardiomegaly and mild pulmonary vascular congestion. Correlate with BNP for congestive heart failure.
[2023-08-31 15:40] LABS: Appearance,Urine Clear (Clear); Bilirubin,Urine Negative (Negative); Blood,Urine Negative (Negative); Color,Urine Yellow; Glucose,Urine (UA) 3+ (Negative); Ketones,Urine Negative (Negative); Leukocyte Esterase,Urine Negative (Negative); Mucus,Urine Rare /hpf; Nitrite,Urine Negative (Negative); PH, Urine 6.5 (5.0-8.0); Protein,Urine 2+ (Negative); RBC,Urine <1 /hpf (0-5); Specific Gravity,Urine 1.009 (1.001-1.035); Squamous Epithelial Cell,Urine <1 /hpf (0-4); Urobilinogen,Urine <2.0 mg/dL (<2.0); WBC,Urine 2 /hpf (0-5)
[2023-08-31] MEDS ORDERED: NALOXONE 0.4 MG/ML 1 ML VIAL IV PRN (15:49)
[2023-08-31] MEDS: FUROSEMIDE 10 MG/ML 10 ML VIAL IV STA (16:37)
[2023-08-31] MEDS ORDERED: ALBUTEROL HFA INHALER INHALATION PRN (19:15)
[2023-08-31] MEDS ORDERED: MELATONIN 5 MG TABLET PO PRN (19:15)
[2023-08-31] MEDS ORDERED: ALBUTEROL NEBULIZED 2.5 MG/3 ML INHALATION PRN (19:15)
[2023-08-31] MEDS ORDERED: COLCHICINE 0.6 MG EACH PO PRN (19:15)
[2023-08-31] MEDS ORDERED: NITROGLYCERIN SL TABS 0.4 MG TAB SUBLINGUAL PRN (19:15)
[2023-08-31] MEDS ORDERED: ACETAMINOPHEN TAB 325 MG TAB PO PRN (19:17)
[2023-08-31] MEDS ORDERED: ONDANSETRON 4 MG/2 ML VIAL IVP PRN (19:17)
[2023-08-31] MEDS: FUROSEMIDE 10 MG/ML 4 ML VIAL IV SCH (20:21)
[2023-08-31] MEDS: CHOLECALCIFEROL 25 MCG (1000 IU) TABLET PO SCH (20:21)
[2023-08-31] MEDS: EZETIMIBE 10 MG TAB PO SCH (20:21)
[2023-08-31] MEDS: TAMSULOSIN 0.4 MG CAP.ER.24H PO SCH (20:21)
[2023-08-31] MEDS: ATORVASTATIN 80 MG TAB PO SCH (20:21)
[2023-08-31] MEDS: MAGNESIUM OXIDE 400 MG TAB PO SCH (20:21)
[2023-08-31] MEDS: HYDROcodone/APAP 7.5-325MG 1 EACH TAB PO SCH (20:21)
[2023-08-31] MEDS: METOPROLOL TARTRATE 50 MG TAB PO SCH (20:21)
[2023-09-01] MEDS: HEPARIN SODIUM,PORCINE 5,000 UNIT/ML 1 ML VIAL SQ SCH (00:07)
[2023-09-01] MEDS: ISOSORBIDE MONONITRATE ER 60 MG TAB.ER.24H PO SCH (08:40)
[2023-09-01] MEDS: allopurinoL 300 MG TAB PO SCH (08:40)
[2023-09-01] MEDS: LEVOTHYROXINE 88 MCG TAB PO SCH (08:40)
[2023-09-01] MEDS: ASPIRIN 81 MG PO SCH (08:41)
[2023-09-01] MEDS: LINAGLIPTIN 5 MG TABLET PO SCH (08:41)
[2023-09-01] MEDS: DAPAGLIFLOZIN PROPANEDIOL 10 MG TABLET PO SCH (08:41)
[2023-09-01] MEDS ORDERED: DAPAGLIFLOZIN PROPANEDIOL 10 MG TABLET PO SCH (09:00)
[2023-09-01] MEDS: RANOLAZINE 500 MG TAB.ER.12H PO SCH (09:03)
--- NOTE | 2023-09-01 10:58 | P.CRDCN ---
History of Present Illness Consult date: 09/01/23 Consult reason: chest pain History of present illness: History of present illness: This is an 83-year-old male patient of Dr. Rafael Teran with past medical history of hypertension, dyslipidemia, hypothyroidism, diabetes mellitus type 2, history of lymphoma, remote history of tobacco use and dependence, coronary artery disease with previous CABG and known severe three-vessel coronary artery disease with patent JUNE to LAD, venous graft to diagonal and a chronically occluded venous graft to PDA and venous graft to the ramus. He had angioplasty with stent placement of the venous graft to the diagonal in 2019. We have been asked to evaluate the patient for chest pain. Patient gives history of having some chest pain and shortness of breath that started Friday evening at 2 AM. It was a sharp in nature. It was different than what he experienced with his previous myocardial infarction. He denies having any dizziness. He states he has not been active and has home care and PT coming in. He has chronic lower extremity edema which is was most severe 1 year ago was treated by Dr. Sinha for wounds. He denies palpitations. He denies smoking. No cough or fever. No wheezing. He denies any blood in his stools no nausea. No stroke or seizure activity. Patient is status post 1 dose of IV Lasix 60 mg followed by 40 mg every 12 hour s. EKG sinus rhythm with PVCs Chest x-ray: Cardiomegaly with mild pulmonary vascular congestion. WBC 11.4, hemoglobin 13.4, platelet count 231. INR 1. Electrolytes normal. BUN 23 creatinine 0.96. Troponin negative x 3. Glucose 100. Magnesium 1.8. Liver function test are normal. proBNP 8570. UA 3+ glucose and 2+ protein. Influenza A, influenza B, RSV, COVID-19 not detected. Home cardiac medications: Aspirin 81 mg daily, Lipitor 80 mg at bedtime, Zetia 10 mg at bedtime, Lasix 40 mg daily, Imdur 60 mg daily, magnesium oxide 400 mg at bedtime, Lopressor 100 mg twice daily, Nitrostat as needed. Patient is also on levothyroxine 88 mcg daily and scheduled to start Jardiance. Echocardiogram performed 05/19/2023 revealed EF of 50 to 55%. Limited Doppler study. Lexiscan stress test performed 05/19/2023 revealed predominantly fixed defect involving the inferior lateral myocardium. Tiny area of stress-induced reversible ischemia not entirely excluded. EF 43%. Review Of Systems: At the time of my exam: CONSTITUTIONAL: Denies fever or chills. HEENT: Denies blurred vision, vision changes, or eye pain. Denies hemoptysis CARDIOVASCULAR: Denies chest pain. Denies orthopnea. Denies PND. Denies palpitations. Reports chronic lower extremity edema RESPIRATORY: Reports chronic shortness of breath. GASTROINTESTINAL: Denies abdominal pain. Denies nausea or vomiting. HEMATOLOGIC: Denies bleeding disorders. GENITOURINARY: Denies any blood in urine. SKIN: Denies pruitis. Denies rash. Physical examination: Gen: This is an 83-year-old male in no acute distress. VS: reviewed blood pressure 177/56, heart rate 55, pulse ox 95% on room air. HEENT: Head is atraumatic, normocephalic. Pupils equal, round. Sclerae is anicteric. NECK: Supple. No JVD. LUNGS: Clear to auscultation. No wheezes or rhonchi. No intercostal retractions. HEART: Regular rate and rhythm. No murmur. ABDOMEN: Soft No tenderness. EXTREMITIES: 2+ pedal edema. No calf tenderness. NEUROLOGICAL: Patient is awake, alert and oriented x3. Assessment: Acute on chronic diastolic heart failure Chest pain, acute coronary syndrome ruled out Known history of coronary artery disease Hypertension Dyslipidemia Hypothyroidism Diabetes mellitus type 2 Plan: Resume patient's home cardiac medications Continue IV Lasix 40 mg every 12 hours for another 24 hours Monitor SHANKAR, daily weights, electrolytes and renal function No need to repeat echocardiogram as this was done in May Increase Farxiga to 10 mg daily Add Ranexa 500 mg twice daily Because patient had a recent unremarkable Lexiscan stress test in May, no ischemic workup at this time Further recommendations to follow based upon clinical course Thank you kindly for this consultation. Nurse practitioner note has been reviewed, I agree with documented findings and plan of care. Patient was seen and examined. Past Medical History Past Medical History: Cancer, Diabetes Mellitus, Hyperlipidemia, Hypertension, Myocardial Infarction (OR) Additional Past Medical History / Comment(s): SKIN CANCER , GOUT CHRONIC BACK Pain,SKIN LESIONS , 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 Last Myocardial Infarction Date:: 08/18/19 History of Any Multi-Drug Resistant Organisms: MRSA Date of last positivie culture/infection: 07/22/16 MDRO Source:: LOWER LEGS Past Surgical History: Cholecystectomy, Coronary Bypass/CABG, Heart Catheterization, Joint Replacement Additional Past Surgical History / Comment(s): PICC line insertion/removed, bilateral caract removals, COLONOSCOPY, EGD, CANCEROUS SKIN LESIONS REMOVED, TOTAL RIGHT KNEE REPLACEMENT, 06-04-16 QUAD BYPASS Past Anesthesia/Blood Transfusion Reactions: Previous Problems w/ Anesthesia Additional Past Anesthesia/Blood Transfusion Reaction / Comment(s): HAD A HARD TIME COMING OUT OF ANESTHESIA AFTER CHOLECYSTECTOMY Past Psychological History: No Psychological Hx Reported Additional Psychological History / Comment(s): Was in the [employer] and was in the [employer]. Smoking Status: Former smoker Past Alcohol Use History: None Reported Additional Past Alcohol Use History / Comment(s): Pt quit smoking in 1982, STARTED SMOKING AT AGE 18 SMOKED 1 PPD. Past Drug Use History: None Reported - Past Family History Father Family Medical History: Vascular Disorder Additional Family Medical History / Comment(s): POOR CIRCULATION-HAD AMPUTATIONS D/T POOR CIRCULATION Mother Family Medical History: Cancer Additional Family Medical History / Comment(s): STOMACH CANCER Medications and Allergies Home Medications Medication Instructions Recorded Confirmed Type allopurinoL [Zyloprim] 300 mg PO DAILY 07/22/16 08/31/23 History Aspirin EC [Ecotrin Low Dose] 81 mg PO DAILY 09/20/18 08/31/23 History HYDROcodone/APAP 7.5-325MG [[place] 1 tab PO BID 07/10/19 08/31/23 History 7.5-325] Magnesium Oxide [Magox 400] 400 mg PO HS 08/17/19 08/31/23 History Turmeric Root Extract [Turmeric] 500 mg PO BID 08/17/19 08/31/23 History Isosorbide Mononitrate ER [Imdur] 60 mg PO DAILY #30 tab 08/19/19 08/31/23 Rx Vitamin B Complex 1 cap PO DAILY 08/29/19 08/31/23 History Nitroglycerin Sl Tabs [Nitrostat] 0.4 mg SUBLINGUAL Q5M PRN #25 tab 09/02/19 08/31/23 Rx Ezetimibe [Zetia] 10 mg PO HS 10/24/21 08/31/23 History Albuterol Inhaler [Ventolin Hfa 2 puff INHALATION RT-Q6H PRN 11/28/22 08/31/23 History Inhaler] Atorvastatin [Lipitor] 80 mg PO HS 11/28/22 08/31/23 History Levothyroxine Sodium [Synthroid] 88 mcg PO DAILY 11/28/22 08/31/23 History Tamsulosin [Flomax] 0.4 mg PO BID 11/28/22 08/31/23 History Cholecalciferol (Vitamin D3) 75 mcg PO HS 05/19/23 08/31/23 History [Vitamin D3 (3000 Iu)] Colchicine [Colcrys] 0.6 mg PO DAILY PRN 05/19/23 08/31/23 History sitaGLIPtin [Januvia] 50 mg PO DAILY 05/19/23 08/31/23 History Metoprolol Tartrate [Lopressor] 100 mg PO BID 30 Days #120 tab 05/20/23 08/31/23 Rx Albuterol Nebulized [Ventolin 2.5 mg INHALATION RT-Q6H PRN 08/31/23 08/31/23 History Nebulized] Empagliflozin [Jardiance] 10 mg PO DIRECTED 08/31/23 08/31/23 History Furosemide [Lasix] 40 mg PO DAILY 08/31/23 08/31/23 History Melatonin 5 mg PO HS PRN 08/31/23 08/31/23 History Allergies Allergy/AdvReac Type Severity Reaction Status Date / Time No Known Allergies Allergy Verified 08/31/23 16:04 Physical Exam Vitals: Vital Signs Temp Pulse Pulse Resp BP BP Pulse Ox 09/01/23 06:34 97.5 F L 55 L 16 177/56 95 09/01/23 02:00 55 L 09/01/23 01:34 98.2 F 55 L 16 112/42 94 L 08/31/23 20:21 70 08/31/23 19:35 97.4 F L 70 16 195/65 96 08/31/23 17:32 97.5 F L 62 16 186/79 97 08/31/23 16:13 52 L 18 164/87 97 08/31/23 15:33 59 L 18 174/82 95 08/31/23 14:24 61 18 174/79 95 08/31/23 13:07 98.4 F 64 22 189/94 94 L Intake and Output 08/31/23 09/01/23 09/01/23 22:59 06:59 14:59 Intake Total 118 Balance 118 Intake: Oral 118 Other: Voiding Method Toilet # Voids 3 Weight 136.078 kg Results 08/31/23 13:20 08/31/23 13:20 Cardiac Enzymes 08/31/23 08/31/23 08/31/23 Range/Units 13:20 13:20 17:43 AST 28 (17-59) U/L Troponin I <0.012 <0.012 (0.000-0.034) ng/mL 08/31/23 Range/Units 22:09 AST (17-59) U/L Troponin I <0.012 (0.000-0.034) ng/mL Coagulation 08/31/23 Range/Units 13:20 PT 11.2 (10.0-12.5) sec APTT 26.0 (22.0-30.0) sec CBC 08/31/23 Range/Units 13:20 WBC 11.4 H (3.8-10.6) k/uL RBC 3.91 L (4.30-5.90) m/uL Hgb 13.4 (13.0-17.5) gm/dL Hct 40.2 (39.0-53.0) % Plt Count 231 (150-450) k/uL Comprehensive Metabolic Panel 08/31/23 Range/Units 13:20 Sodium 139 (137-145) mmol/L Potassium 4.3 (3.5-5.1) mmol/L Chloride 107 (98-107) mmol/L Carbon Dioxide 23 (22-30) mmol/L BUN 23 H (9-20) mg/dL Creatinine 0.96 (0.66-1.25) mg/dL Glucose 100 H (74-99) mg/dL Calcium 9.3 (8.4-10.2) mg/dL AST 28 (17-59) U/L ALT 15 (4-49) U/L Alkaline Phosphatase 97 (38-126) U/L Total Protein 6.4 (6.3-8.2) g/dL Albumin 4.1 (3.5-5.0) g/dL Current Medications Generic Name Dose Route Start Last Admin Trade Name Freq PRN Reason Stop Dose Admin Acetaminophen 650 mg 08/31/23 19:17 Acetaminophen Tab 325 Mg Tab PO Q6HR PRN Fever and/ or Pain Hydrocodone Bitart/Acetaminophen 1 each 08/31/23 21:00 08/31/23 20:21 Hydrocodone/Apap 7.5-325mg 1 Each Tab PO 1 each BID JONY Administration Albuterol Sulfate 2 puff 08/31/23 19:15 Albuterol Hfa Inhaler INHALATION RT-Q6H PRN Shortness Of Breath Albuterol Sulfate 2.5 mg 08/31/23 19:15 Albuterol Nebulized 2.5 Mg/3 Ml INHALATION RT-Q6H PRN Shortness Of Breath Allopurinol 300 mg 09/01/23 09:00 Allopurinol 300 Mg Tab PO DAILY JONY Aspirin 81 mg 09/01/23 09:00 Aspirin 81 Mg PO DAILY JONY Atorvastatin Calcium 80 mg 08/31/23 21:00 08/31/23 20:21 Atorvastatin 80 Mg Tab PO 80 mg HS JONY Administration Cholecalciferol 75 mcg 08/31/23 21:00 08/31/23 20:21 Cholecalciferol 25 Mcg (1000 Iu) Tablet PO 75 mcg HS JONY Administration Colchicine 0.6 mg 08/31/23 19:15 Colchicine 0.6 Mg Each PO DAILY PRN Gout Dapagliflozin 5 mg 09/01/23 09:00 Dapagliflozin Propanediol 10 Mg Tablet PO DAILY JONY Ezetimibe 10 mg 08/31/23 21:00 08/31/23 20:21 Ezetimibe 10 Mg Tab PO 10 mg HS JONY Administration Furosemide 40 mg 08/31/23 21:00 08/31/23 20:21 Furosemide 10 Mg/Ml 4 Ml Vial IV 40 mg Q12HR JONY Administration Heparin Sodium (Porcine) 5,000 unit 09/01/23 00:00 09/01/23 00:07 Heparin Sodium,Porcine 5,000 Unit/Ml 1 Ml Vial SQ 5,000 unit Q8HR JONY Administration Isosorbide Mononitrate 60 mg 09/01/23 09:00 Isosorbide Mononitrate Er 60 Mg Tab.Er.24h PO DAILY [facility] Levothyroxine Sodium 88 mcg 09/01/23 09:00 Levothyroxine 88 Mcg Tab PO DAILY JONY Linagliptin 5 mg 09/01/23 09:00 Linagliptin 5 Mg Tablet PO DAILY JONY Magnesium Oxide 400 mg 08/31/23 21:00 08/31/23 20:21 Magnesium Oxide 400 Mg Tab PO 400 mg HS JONY Administration Melatonin 5 mg 08/31/23 19:15 Melatonin 5 Mg Tablet PO HS PRN Insomnia Metoprolol Tartrate 100 mg 08/31/23 21:00 08/31/23 20:21 Metoprolol Tartrate 50 Mg Tab PO 100 mg BID JONY Administration Naloxone HCl 0.2 mg 08/31/23 15:49 Naloxone 0.4 Mg/Ml 1 Ml Vial IV Q2M PRN Opioid Reversal Nitroglycerin 0.4 mg 08/31/23 19:15 Nitroglycerin Sl Tabs 0.4 Mg Tab SUBLINGUAL Q5M PRN Chest Pain Ondansetron HCl 4 mg 08/31/23 19:17 Ondansetron 4 Mg/2 Ml Vial IVP Q6HR PRN Nausea And Vomiting Tamsulosin HCl 0.4 mg 08/31/23 21:00 08/31/23 20:21 Tamsulosin 0.4 Mg Cap.Er.24h PO 0.4 mg BID JONY Administration Intake and Output 08/31/23 09/01/23 09/01/23 22:59 06:59 14:59 Intake Total 118 Balance 118 Intake: Oral 118 Other: Voiding Method Toilet # Voids 3 Weight 136.078 kg 08/31/23 13:20 08/31/23 13:20
--- NOTE | 2023-09-01 11:23 | P.HPIM ---
History of Present Illness 89-year-old male with history of coronary disease and congestive heart failure chronic diastolic Haemocomplettan shortness of breath and chest pain chest pain appears noncardiac EKG did not ST-T wave changes troponins were negative. Patient had a recent stress test which was negative. 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 Patient takes CorMatrix on daily basis at home patient was started on 40 mg IV twice a day. Chest x-ray did show pulmonary serum creatinine within normal limits. He was slightly low patient paraseptal edema. Patient had an echocardiogram in over 2022 which were normal ejection fraction stress test was were done and normal 2022 which showed a fixed defect involving inferior lateral myocardium which is very small. REVIEW OF SYSTEMS: CONSTITUTIONAL: No fever, no malaise, no fatigue. HEENT: No recent visual problems or hearing problems. Denied any sore throat. CARDIOVASCULAR: As mentioned in HPI PULMONARY no cough, no hemoptysis. GASTROINTESTINAL: No diarrhea, no nausea, no vomiting, no abdominal pain. NEUROLOGICAL: No headaches, no weakness, no numbness. HEMATOLOGICAL: Denies any bleeding or petechiae. GENITOURINARY: Denies any burning micturition, frequency, or urgency. MUSCULOSKELETAL/RHEUMATOLOGICAL: Denies any joint pain, swelling, or any muscle pain. ENDOCRINE: Denies any polyuria or polydipsia. The rest of the 14-point review of systems is negative. PHYSICAL EXAMINATION: GENERAL: The patient is alert and oriented x3, not in any acute distress. Obese HEENT: Pupils are round and equally reacting to light. EOMI. No scleral icterus. No conjunctival pallor. Normocephalic, atraumatic. No pharyngeal erythema. No thyromegaly. CARDIOVASCULAR: S1 and S2 present. No murmurs, rubs, or gallops. PULMONARY: Chest is clear to auscultation, no wheezing or crackles. ABDOMEN: Soft, nontender, nondistended, normoactive bowel sounds. No palpable organomegaly. MUSCULOSKELETAL: No joint swelling or deformity. EXTREMITIES: No cyanosis, clubbing, 1-2+ pitting pedal Lomexin up to the mid tamayo area. NEUROLOGICAL: Gross neurological examination did not reveal any focal deficits. SKIN: No rashes. Assessment and plan -Acute on chronic diastolic function. Exacerbation: Continue with IV Lasix 40 mg twice a day monitor lites and kidney function -Chest pain patient had a stress test which showed tiny area of inducible ischemia in the left but no further intervention is recommended with radiology continue with present cardiac medications. -Leukocytosis reactive without any evidence of infection at this time patient is not having UTI. -Hypertension -Hyperlipidemia -Type 2 diabetes mellitus -Coronary disease DVT prophylaxis: Will give subcutaneous Lovenox Past Medical History Past Medical History: Cancer, Diabetes Mellitus, Hyperlipidemia, Hypertension, Myocardial Infarction ([place]) Additional Past Medical History / Comment(s): SKIN CANCER , GOUT CHRONIC BACK Pain,SKIN LESIONS , 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 Last Myocardial Infarction Date:: 08/18/19 History of Any Multi-Drug Resistant Organisms: MRSA Date of last positivie culture/infection: 07/22/16 MDRO Source:: LOWER LEGS Past Surgical History: Cholecystectomy, Coronary Bypass/CABG, Heart Cathete rization, Joint Replacement Additional Past Surgical History / Comment(s): PICC line insertion/removed, bilateral caract removals, COLONOSCOPY, EGD, CANCEROUS SKIN LESIONS REMOVED, TOTAL RIGHT KNEE REPLACEMENT, 06-04-16 QUAD BYPASS Past Anesthesia/Blood Transfusion Reactions: Previous Problems w/ Anesthesia Additional Past Anesthesia/Blood Transfusion Reaction / Comment(s): HAD A HARD TIME COMING OUT OF ANESTHESIA AFTER CHOLECYSTECTOMY Past Psychological History: No Psychological Hx Reported Additional Psychological History / Comment(s): Was in the [employer] and was in the [place]. Smoking Status: Former smoker Past Alcohol Use History: None Reported Additional Past Alcohol Use History / Comment(s): Pt quit smoking in 1982, STARTED SMOKING AT AGE 18 SMOKED 1 PPD. Past Drug Use History: None Reported - Past Family History Father Family Medical History: Vascular Disorder Additional Family Medical History / Comment(s): POOR CIRCULATION-HAD AMPUTATIONS D/T POOR CIRCULATION Mother Family Medical History: Cancer Additional Family Medical History / Comment(s): STOMACH CANCER Medications and Allergies Home Medications Medication Instructions Recorded Confirmed Type allopurinoL [Zyloprim] 300 mg PO DAILY 07/22/16 08/31/23 History Aspirin EC [Ecotrin Low Dose] 81 mg PO DAILY 09/20/18 08/31/23 History HYDROcodone/APAP 7.5-325MG [Lane 1 tab PO BID 07/10/19 08/31/23 History 7.5-325] Magnesium Oxide [Magox 400] 400 mg PO HS 08/17/19 08/31/23 History Turmeric Root Extract [Turmeric] 500 mg PO BID 08/17/19 08/31/23 History Isosorbide Mononitrate ER [Imdur] 60 mg PO DAILY #30 tab 08/19/19 08/31/23 Rx Vitamin B Complex 1 cap PO DAILY 08/29/19 08/31/23 History Nitroglycerin Sl Tabs [Nitrostat] 0.4 mg SUBLINGUAL Q5M PRN #25 tab 09/02/19 08/31/23 Rx Ezetimibe [Zetia] 10 mg PO HS 10/24/21 08/31/23 History Albuterol Inhaler [Ventolin Hfa 2 puff INHALATION RT-Q6H PRN 11/28/22 08/31/23 History Inhaler] Atorvastatin [Lipitor] 80 mg PO HS 11/28/22 08/31/23 History Levothyroxine Sodium [Synthroid] 88 mcg PO DAILY 11/28/22 08/31/23 History Tamsulosin [Flomax] 0.4 mg PO BID 11/28/22 08/31/23 History Cholecalciferol (Vitamin D3) 75 mcg PO HS 05/19/23 08/31/23 History [Vitamin D3 (3000 Iu)] Colchicine [Colcrys] 0.6 mg PO DAILY PRN 05/19/23 08/31/23 History sitaGLIPtin [Januvia] 50 mg PO DAILY 05/19/23 08/31/23 History Metoprolol Tartrate [Lopressor] 100 mg PO BID 30 Days #120 tab 05/20/23 08/31/23 Rx Albuterol Nebulized [Ventolin 2.5 mg INHALATION RT-Q6H PRN 08/31/23 08/31/23 History Nebulized] Empagliflozin [Jardiance] 10 mg PO DIRECTED 08/31/23 08/31/23 History Furosemide [Lasix] 40 mg PO DAILY 08/31/23 08/31/23 History Melatonin 5 mg PO HS PRN 08/31/23 08/31/23 History Allergies Allergy/AdvReac Type Severity Reaction Status Date / Time No Known Allergies Allergy Verified 08/31/23 16:04 Physical Exam Vitals: Vital Signs Temp Pulse Pulse Resp BP BP Pulse Ox 09/01/23 06:34 97.5 F L 55 L 16 177/56 95 09/01/23 02:00 55 L 09/01/23 01:34 98.2 F 55 L 16 112/42 94 L 08/31/23 20:21 70 08/31/23 19:35 97.4 F L 70 16 195/65 96 08/31/23 17:32 97.5 F L 62 16 186/79 97 08/31/23 16:13 52 L 18 164/87 97 08/31/23 15:33 59 L 18 174/82 95 08/31/23 14:24 61 18 174/79 95 08/31/23 13:07 98.4 F 64 22 189/94 94 L Intake and Output 08/31/23 09/01/23 09/01/23 22:59 06:59 14:59 Intake Total 118 Balance 118 Intake: Oral 118 Other: Voiding Method Toilet Toilet # Voids 3 Weight 136.078 kg Results CBC & Chem 7: 08/31/23 13:20 08/31/23 13:20 Labs: Abnormal Lab Results - Last 24 Hours (Table) 08/31/23 08/31/23 08/31/23 Range/Units 13:20 13:20 15:22 WBC 11.4 H (3.8-10.6) k/uL RBC 3.91 L (4.30-5.90) m/uL MCV 102.8 H (80.0-100.0) fL Neutrophils # 8.7 H (1.3-7.7) k/uL BUN 23 H (9-20) mg/dL Glucose 100 H (74-99) mg/dL Urine Protein 2+ H (Negative) Urine Glucose (UA) 3+ H (Negative) Urine Mucus Rare H (None) /hpf
[2023-09-01 11:31] LABS: Basophils # (A) 0.07 X 10*3/uL (0.00-0.10); Basophils % (A) 0.6 %; Crenated RBC 2+; Elliptocytes 2+; Eosinophils # (A) 0.32 X 10*3/uL (0.04-0.35); Eosinophils % (A) 2.9 %; HGB 12.8 g/dL (13.0-17.0); Lymphocytes # (A) 1.51 X 10*3/uL (0.90-5.00); Lymphocytes % (A) 13.8 %; MCH 34.8 pg (27.0-32.0); MCHC 33.7 g/dL (32.0-37.0); MCV 103.3 FL (80.0-97.0); Mean Platelet Volume 11.2 FL (9.5-12.2); Monocytes # (A) 0.97 X 10*3/uL (0.20-1.00); Monocytes % (A) 8.9 %; NRBC Per 100 WBC 0 X 10*3/uL (0.00-0.01); Neutrophils # (A) 8.02 X 10*3/uL (1.80-7.70); Neutrophils % (A) 73.5 %; Platelet Count 199 X 10*3/uL (140-440); RBC 3.68 X 10*6/uL (4.40-5.60); RDW 14.6 % (11.5-14.5); WBC 10.92 X 10*3/uL (4.50-10.00)
[2023-09-01 12:38] LABS: BUN/Creat Ratio 19.77 Ratio (12.00-20.00); Blood Urea Nitrogen 25.7 mg/dL (9.0-27.0); Calcium 9.4 mg/dL (8.7-10.3); Carbon Dioxide 24.2 mmol/L (21.6-31.8); Chloride 101 mmol/L (96-109); Glucose 102 mg/dL (70-110); Potassium 4.3 mmol/L (3.5-5.5); Sodium 140 mmol/L (135-145)
[2023-09-01 13:03] LABS: Glucose,Whole Blood 132 mg/dL (70-110)
[2023-09-01] MEDS ORDERED: HALOPERIDOL LACTATE 5 MG/ML 1 ML VIAL IVP PRN (13:56)
--- NOTE | 2023-09-01 18:09 | CT ---
EXAMINATION TYPE: CT brain cspine wo con DATE OF EXAM: 09/01/2023 COMPARISON: 02/14/2023 HISTORY: back pain CT DLP: 1898 mGycm. Automated Exposure Control for Dose Reduction was Utilized. TECHNIQUE: CT scan of the head and cervical spine are performed without contrast. FINDINGS: There is no acute intracranial hemorrhage, mass effect, or midline shift identified. The v entricles and sulci are within normal limits in size. The globes are intact and the visualized sinuse s are clear. Cervical spine is visualized in its entirety from C1 through upper thoracic levels and demonstrates s atisfactory alignment without evidence of acute fracture or dislocation. Multilevel advanced cervical spondylosis changes appreciated. Prevertebral soft tissue appears within normal limits. The C1-C2 ar ticulation is unremarkable. IMPRESSION: 1. There is no acute fracture or dislocation evident in the cervical spine. 2. No acute intracranial hemorrhage, mass effect, or midline shift is seen.
[2023-09-01] MEDS: QUEtiapine 25 MG TAB PO SCH (20:24)
[2023-09-02 06:16] LABS: African American GFR (CKD) 44 (>60 ml/min/1.73 sqM); Anion Gap 6 mmol/L; Blood Urea Nitrogen 37 mg/dL (9-20); Calcium 9.1 mg/dL (8.4-10.2); Carbon Dioxide 28 mmol/L (22-30); Chloride 104 mmol/L (98-107); Glucose 110 mg/dL (74-99); Non-African American GFR(CKD) 38 (>60 ml/min/1.73 sqM); Potassium 4.3 mmol/L (3.5-5.1); Sodium 138 mmol/L (137-145)
[2023-09-02 06:25] LABS: NT-Pro-B-Type Natriuretic Pept 3750 pg/mL
[2023-09-02 08:43] LABS: Basophils # (A) 0.06 X 10*3/uL (0.00-0.10); Basophils % (A) 0.6 %; Eosinophils # (A) 0.36 X 10*3/uL (0.04-0.35); Eosinophils % (A) 3.4 %; HCT 38.2 % (39.6-50.0); HGB 12.7 g/dL (13.0-17.0); Lymphocytes # (A) 1.62 X 10*3/uL (0.90-5.00); Lymphocytes % (A) 15.1 %; MCH 34.3 pg (27.0-32.0); MCHC 33.2 g/dL (32.0-37.0); MCV 103.2 FL (80.0-97.0); Mean Platelet Volume 10.4 FL (9.5-12.2); Monocytes # (A) 0.89 X 10*3/uL (0.20-1.00); Monocytes % (A) 8.3 %; NRBC Per 100 WBC 0 X 10*3/uL (0.00-0.01); Neutrophils # (A) 7.74 X 10*3/uL (1.80-7.70); Neutrophils % (A) 71.9 %; Platelet Count 207 X 10*3/uL (140-440); RDW 14.6 % (11.5-14.5); WBC 10.74 X 10*3/uL (4.50-10.00)
--- NOTE | 2023-09-02 09:45 | P.PN ---
Subjective Progress Note Date: 09/02/23 Consult reason: chest pain History of present illness: History of present illness: This is an 83-year-old male patient of Dr. Rafael Teran with past medical history of hypertension, dyslipidemia, hypothyroidism, diabetes mellitus type 2, history of lymphoma, remote history of tobacco use and dependence, coronary artery disease with previous CABG and known severe three-vessel coronary artery disease with patent JUNE to LAD, venous graft to diagonal and a chronically occluded venous graft to PDA and venous graft to the ramus. He had angioplasty with stent placement of the venous graft to the diagonal in 2019. We have been asked to evaluate the patient for chest pain. Patient gives history of having some chest pain and shortness of breath that started Friday evening at 2 AM. It was a sharp in nature. It was different than what he experienced with his previous myocardial infarction. He denies having any dizziness. He states he has not been active and has home care and PT coming in. He has chronic lower extremity edema which is was most severe 1 year ago was treated by Dr. Sinha for wounds. He denies palpitations. He denies smoking. No cough or fever. No wheezing. He denies any blood in his stools no nausea. No stroke or seizure activity. Patient is status post 1 dose of IV Lasix 60 mg followed by 40 mg every 12 hours. EKG sinus rhythm with PVCs Chest x-ray: Cardiomegaly with mild pulmonary vascular congestion. WBC 11.4, hemoglobin 13.4, platelet count 231. INR 1. Electrolytes normal. BUN 23 creatinine 0.96. Troponin negative x 3. Glucose 100. Magnesium 1.8. Liver function test are normal. proBNP 8570. UA 3+ glucose and 2+ protein. Influenza A, influenza B, RSV, COVID-19 not detected. Home cardiac medications: Aspirin 81 mg daily, Lipitor 80 mg at bedtime, Zetia 10 mg at bedtime, Lasix 40 mg daily, Imdur 60 mg daily, magnesium oxide 400 mg at bedtime, Lopressor 100 mg twice daily, Nitrostat as needed. Patient is also on levothyroxine 88 mcg daily and scheduled to start Jardiance. Echocardiogram performed 05/19/2023 revealed EF of 50 to 55%. Limited Doppler study. Lexiscan stress test performed 05/19/2023 revealed predominantly fixed defect involving the inferior lateral myocardium. Tiny area of stress-induced reversible ischemia not entirely excluded. EF 43%. 09/02 Patient states that he is not feeling well today. He complains of feeling weak and dizzy. He denies having any chest pain. He feels that the lower extremity edema is about the same. Blood pressure 135/51, heart rate 70, pulse ox 96% on room air. Repeat blood work reveals WBC 10.7, hemoglobin 12.7, platelet count 207. Sodium 138, potassium 4.3, BUN 37 creatinine 1.65. proBNP 3750. Physical examination: Gen: This is an 83-year-old male in no acute distress. VS: reviewed blood pressure 177/56, heart rate 55, pulse ox 95% on room air. HEENT: Head is atraumatic, normocephalic. Pupils equal, round. Sclerae is anicteric. NECK: Supple. No JVD. LUNGS: Diminished breath sounds. No intercostal retractions. HEART: Regular rate and rhythm. No murmur. ABDOMEN: Soft No tenderness. EXTREMITIES: 2+ pedal edema. No calf tenderness. NEUROLOGICAL: Patient is awake, alert and oriented x3. Assessment: Acute on chronic diastolic heart failure Chest pain, acute coronary syndrome ruled out Known history of coronary artery disease Hypertension Dyslipidemia Hypothyroidism Diabetes mellitus type 2 Acute kidney injury Plan: Continue patient's home cardiac medications Transition IV Lasix to oral 40 mg twice daily Monitor SHANKAR, daily weights, electrolytes and renal function No need to repeat echocardiogram as this was done in May Continue Farxiga 10 mg daily and Ranexa 500 mg twice daily Because patient had a recent unremarkable Lexiscan stress test in May, no ischemic workup at this time Further recommendations to follow based upon clinical course Nurse practitioner note has been reviewed, I agree with documented findings and plan of care. Patient was seen and examined. Objective - Vital Signs Vital signs: Vital Signs Temp 97.7 F 09/02/23 07:00 Pulse 70 09/02/23 07:00 Resp 16 09/02/23 07:00 BP 135/51 09/02/23 07:00 Pulse Ox 96 09/02/23 07:00 FiO2 Intake & Output 09/01/23 09/02/23 09/02/23 18:59 06:59 18:59 Intake Total 598 Output Total 200 Balance 398 Intake: Oral 598 Output: Urine 200 Other: Voiding Method Toilet Toilet # Voids 2 - Labs CBC & Chem 7: 09/02/23 05:44 09/02/23 05:44 Labs: Abnormal Lab Results - Last 24 Hours (Table) 09/01/23 09/01/23 09/01/23 Range/Units 06:17 06:17 13:02 WBC 10.92 H (4.50-10.00) X 10*3/uL RBC 3.68 L (4.40-5.60) X 10*6/uL Hgb 12.8 L (13.0-17.0) g/dL Hct 38.0 L (39.6-50.0) % MCV 103.3 H (80.0-97.0) FL MCH 34.8 H (27.0-32.0) pg RDW 14.6 H (11.5-14.5) % Neutrophils # 8.02 H (1.80-7.70) X 10*3/uL Crenated Cell 2+ A Elliptocytes 2+ A Anion Gap 14.80 H (4.00-12.00) mmol/L BUN (9-20) mg/dL Creatinine (0.66-1.25) mg/dL Est GFR (CKD-EPI) 55 L (>=60) Glucose (74-99) mg/dL POC Glucose (mg/dL) 132 H (70-110) mg/dL 09/02/23 Range/Units 05:44 WBC (4.50-10.00) X 10*3/uL RBC (4.40-5.60) X 10*6/uL Hgb (13.0-17.0) g/dL Hct (39.6-50.0) % MCV (80.0-97.0) FL MCH (27.0-32.0) pg RDW (11.5-14.5) % Neutrophils # (1.80-7.70) X 10*3/uL Crenated Cell Elliptocytes Anion Gap (4.00-12.00) mmol/L BUN 37 H (9-20) mg/dL Creatinine 1.65 H (0.66-1.25) mg/dL Est GFR (CKD-EPI) (>=60) Glucose 110 H (74-99) mg/dL POC Glucose (mg/dL) (70-110) mg/dL
[2023-09-02] MEDS: FUROSEMIDE 40 MG TAB PO SCH (10:03)
--- NOTE | 2023-09-02 21:21 | P.PN ---
Subjective Progress Note Date: 09/02/23 89-year-old male with history of coronary disease and congestive heart failure chronic diastolic Haemocomplettan shortness of breath and chest pain chest pain appears noncardiac EKG did not ST-T wave changes troponins were negative. Patient had a recent stress test which was negative. 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 Patient takes CorMatrix on daily basis at home patient was started on 40 mg IV twice a day. Chest x-ray did show pulmonary serum creatinine within normal limits. He was slightly low patient paraseptal edema. Patient had an echocardiogram in over 2022 which were normal ejection fraction stress test was were done and normal 2022 which showed a fixed defect involving inferior lateral myocardium which is very small. 09/02/2023 Patient is evaluated today sitting up in the chair. Continues to report some shortness of breath however has improved overall, Patient is alert x 3 today less confused. He does have lower extremity pitting edema up to the thighs, mildly improved. Continues on IV lasix. Creatinine increased today and nursing reports patient has had decreased urine output. Review of Systems Constitutional: Denied any fatigue denied any fever. Cardio vascular: denied any chest pain, palpitations Gastrointestinal: denied any nausea, vomiting, diarrhea Pulmonary: Reports shortness of breath cough Neurologic denied any new focal deficits All inpatient medications were reviewed and appropriate changes in these medications as dictated in the interval history and assessment and plan. PHYSICAL EXAMINATION: GENERAL: The patient is alert and oriented x3, not in any acute distress. Well developed, well nourished. HEENT: Pupils are round and equally reacting to light. EOMI. No scleral icterus. No conjunctival pallor. Normocephalic, atraumatic. No pharyngeal erythema. No thyromegaly. CARDIOVASCULAR: S1 and S2 present. No murmurs, rubs, or gallops. PULMONARY: Chest is clear to auscultation, no wheezing or crackles. ABDOMEN: Soft, nontender, nondistended, normoactive bowel sounds. No palpable or ganomegaly. MUSCULOSKELETAL: No joint swelling or deformity. EXTREMITIES: No cyanosis, clubbing, or pedal edema. LE edema from feet to mid thigh. NEUROLOGICAL: Gross neurological examination did not reveal any focal deficits. SKIN: No rashes. Assessment and Plan -Acute on chronic diastolic function. Exacerbation: Continue with IV Lasix 40 mg twice a day monitor lites and kidney function -Chest pain patient had a stress test which showed tiny area of inducible ischemia in the left but no further intervention is recommended by medical economics consultant. continue with present cardiac medications. -Leukocytosis reactive without any evidence of infection at this time patient is not having UTI. -General medical debility and weakness PT/OT evaluation -Hypertension -Hyperlipidemia -Type 2 diabetes mellitus -Coronary disease DVT prophylaxis: subcutaneous heparin GI prophylaxis: pepcid Full Code The impression and plan of care has been dictated by Amirah Kruse, Nurse Practitioner as directed. Dr. Mona MD I have performed a history and physical examination and medical decision making of this patient, discussed the same with the dictator, and agree with the dictators assessment and plan as written, documented as a scribe. Based on total visit time, I have performed more than 50% of this visit. Right radiocephalic Objective - Vital Signs Vital signs: Vital Signs Temp 97.8 F 09/02/23 19:27 Pulse 70 09/02/23 19:27 Resp 16 09/02/23 19:27 BP 182/63 09/02/23 19:27 Pulse Ox 98 09/02/23 19:27 FiO2 Intake & Output 09/02/23 09/02/23 09/03/23 06:59 18:59 06:59 Intake Total 118 Output Total 400 Balance -282 Intake: Oral 118 Output: Urine 400 Other: Voiding Method Toilet Toilet - Labs CBC & Chem 7: 09/02/23 05:44 09/02/23 05:44 Labs: Abnormal Lab Results - Last 24 Hours (Table) 09/02/23 09/02/23 Range/Units 05:44 05:44 WBC 10.74 H (4.50-10.00) X 10*3/uL RBC 3.70 L (4.40-5.60) X 10*6/uL Hgb 12.7 L (13.0-17.0) g/dL Hct 38.2 L (39.6-50.0) % MCV 103.2 H (80.0-97.0) FL MCH 34.3 H (27.0-32.0) pg RDW 14.6 H (11.5-14.5) % Immature Gran # 0.07 H (0.00-0.04) X 10*3/uL Neutrophils # 7.74 H (1.80-7.70) X 10*3/uL Eosinophils # 0.36 H (0.04-0.35) X 10*3/uL BUN 37 H (9-20) mg/dL Creatinine 1.65 H (0.66-1.25) mg/dL Glucose 110 H (74-99) mg/dL Assessment and Plan Time with Patient: Less than 30
[2023-09-03] MEDS: HYDROcodone/APAP 7.5-325MG 1 EACH TAB PO PRN (04:02)
[2023-09-03 08:46] LABS: Basophils # (A) 0.07 X 10*3/uL (0.00-0.10); Basophils % (A) 0.7 %; Eosinophils # (A) 0.41 X 10*3/uL (0.04-0.35); Eosinophils % (A) 3.9 %; HCT 36.3 % (39.6-50.0); Lymphocytes # (A) 1.65 X 10*3/uL (0.90-5.00); Lymphocytes % (A) 15.8 %; MCH 33.5 pg (27.0-32.0); MCHC 33.1 g/dL (32.0-37.0); MCV 101.4 FL (80.0-97.0); Mean Platelet Volume 10.7 FL (9.5-12.2); Monocytes # (A) 0.98 X 10*3/uL (0.20-1.00); Monocytes % (A) 9.4 %; NRBC Per 100 WBC 0 X 10*3/uL (0.00-0.01); Neutrophils # (A) 7.23 X 10*3/uL (1.80-7.70); Neutrophils % (A) 69.3 %; Platelet Count 212 X 10*3/uL (140-440); RBC 3.58 X 10*6/uL (4.40-5.60); RDW 14.5 % (11.5-14.5); WBC 10.43 X 10*3/uL (4.50-10.00)
[2023-09-03 08:48] LABS: BUN/Creat Ratio 22.06 Ratio (12.00-20.00); Blood Urea Nitrogen 39.7 mg/dL (9.0-27.0); Carbon Dioxide 25.1 mmol/L (21.6-31.8); Chloride 99 mmol/L (96-109); Glucose 108 mg/dL (70-110); Sodium 138 mmol/L (135-145)
[2023-09-03] MEDS: FAMOTIDINE 20 MG TAB PO SCH (09:03)
[2023-09-03] MEDS: NYSTATIN 100,000 UNIT/GM POWD 15 GM TOPICAL SCH (09:17)
[2023-09-03] MEDS: BUMETANIDE 1 MG TAB PO SCH (09:17)
--- NOTE | 2023-09-03 11:57 | P.PN ---
Subjective Progress Note Date: 09/03/23 Consult reason: chest pain History of present illness: History of present illness: This is an 83-year-old male patient of Dr. Rafael Teran with past medical history of hypertension, dyslipidemia, hypothyroidism, diabetes mellitus type 2, history of lymphoma, remote history of tobacco use and dependence, coronary artery disease with previous CABG and known severe three-vessel coronary artery disease with patent JUNE to LAD, venous graft to diagonal and a chronically occluded venous graft to PDA and venous graft to the ramus. He had angioplasty with stent placement of the venous graft to the diagonal in 2019. We have been asked to evaluate the patient for chest pain. Patient gives history of having some chest pain and shortness of breath that started Friday evening at 2 AM. It was a sharp in nature. It was different than what he experienced with his previous myocardial infarction. He denies having any dizziness. He states he has not been active and has home care and PT coming in. He has chronic lower extremity edema which is was most severe 1 year ago was treated by Dr. Sinha for wounds. He denies palpitations. He denies smoking. No cough or fever. No wheezing. He denies any blood in his stools no nausea. No stroke or seizure activity. Patient is status post 1 dose of IV Lasix 60 mg followed by 40 mg every 12 hours. EKG sinus rhythm with PVCs Chest x-ray: Cardiomegaly with mild pulmonary vascular congestion. WBC 11.4, hemoglobin 13.4, platelet count 231. INR 1. Electrolytes normal. BUN 23 creatinine 0.96. Troponin negative x 3. Glucose 100. Magnesium 1.8. Liver function test are normal. proBNP 8570. UA 3+ glucose and 2+ protein. Influenza A, influenza B, RSV, COVID-19 not detected. Home cardiac medications: Aspirin 81 mg daily, Lipitor 80 mg at bedtime, Zetia 10 mg at bedtime, Lasix 40 mg daily, Imdur 60 mg daily, magnesium oxide 400 mg at bedtime, Lopressor 100 mg twice daily, Nitrostat as needed. Patient is also on levothyroxine 88 mcg daily and scheduled to start Jardiance. Echocardiogram performed 05/19/2023 revealed EF of 50 to 55%. Limited Doppler study. Lexiscan stress test performed 05/19/2023 revealed predominantly fixed defect involving the inferior lateral myocardium. Tiny area of stress-induced reversible ischemia not entirely excluded. EF 43%. 09/02 Patient states that he is not feeling well today. He complains of feeling weak and dizzy. He denies having any chest pain. He feels that the lower extremity edema is about the same. Blood pressure 135/51, heart rate 70, pulse ox 96% on room air. Repeat blood work reveals WBC 10.7, hemoglobin 12.7, platelet count 207. Sodium 138, potassium 4.3, BUN 37 creatinine 1.65. proBNP 3750. 09/03 Patient states that his breathing is improved. He denies chest pain. In general, he is feeling a little better from yesterday. Yesterday, patient was transition from IV Lasix twice daily to oral twice daily. Is noted to have worsening renal function for which his BUN is 39 and creatinine 1.8. Blood pressure is 160/60 previous blood pressure 105/71. Heart rate is 51, pulse ox 97% on room air. Physical examination: Gen: This is an 83-year-old male in no acute distress. VS: reviewed blood pressure 177/56, heart rate 55, pulse ox 95% on room air. HEENT: Head is atraumatic, normocephalic. Pupils equal, round. Sclerae is anic teric. NECK: Supple. No JVD. LUNGS: Diminished breath sounds. No intercostal retractions. HEART: Regular rate and rhythm. No murmur. ABDOMEN: Soft No tenderness. EXTREMITIES: 2+ pedal edema. No calf tenderness. NEUROLOGICAL: Patient is awake, alert and oriented x3. Assessment: Acute on chronic diastolic heart failure Chest pain, acute coronary syndrome ruled out Known history of coronary artery disease Hypertension Dyslipidemia Hypothyroidism Diabetes mellitus type 2 Acute kidney injury Plan: Continue patient's home cardiac medications Transition oral Lasix to Bumex 1 mg daily Monitor SHANKAR, daily weights, electrolytes and renal function No need to repeat echocardiogram as this was done in May Continue Farxiga 10 mg daily and Ranexa 500 mg twice daily Because patient had a recent unremarkable Lexiscan stress test in May, no ischemic workup at this time Further recommendations to follow based upon clinical course Nurse practitioner note has been reviewed, I agree with documented findings and plan of care. Patient was seen and examined. Objective - Vital Signs Vital signs: Vital Signs Temp 97.6 F 09/03/23 07:00 Pulse 51 L 09/03/23 07:00 Resp 16 09/03/23 07:00 BP 160/60 09/03/23 07:00 Pulse Ox 97 09/03/23 07:00 FiO2 Intake & Output 09/02/23 09/03/23 09/03/23 18:59 06:59 18:59 Intake Total 118 Output Total 400 200 Balance -282 -200 Weight 134.9 kg Intake: Oral 118 Output: Urine 400 200 Other: Voiding Method Toilet - Labs CBC & Chem 7: 09/03/23 05:59 09/03/23 05:59 Labs: Abnormal Lab Results - Last 24 Hours (Table) 09/03/23 09/03/23 Range/Units 05:59 05:59 WBC 10.43 H (4.50-10.00) X 10*3/uL RBC 3.58 L (4.40-5.60) X 10*6/uL Hgb 12.0 L (13.0-17.0) g/dL Hct 36.3 L (39.6-50.0) % MCV 101.4 H (80.0-97.0) FL MCH 33.5 H (27.0-32.0) pg Immature Gran # 0.09 H (0.00-0.04) X 10*3/uL Eosinophils # 0.41 H (0.04-0.35) X 10*3/uL Anion Gap 13.90 H (4.00-12.00) mmol/L BUN 39.7 H (9.0-27.0) mg/dL Creatinine 1.8 H (0.6-1.5) mg/dL Est GFR (CKD-EPI) 37 L (>=60) BUN/Creatinine Ratio 22.06 H (12.00-20.00) Ratio
--- NOTE | 2023-09-03 18:19 | P.NPCON ---
History of Present Illness - Reason for Consult acute renal failure - History of Present Illness Patient is an 83-year-old male with history of chronic kidney disease and Stage IIIb with baseline creatinine around 1.4-1.6 mg/dL secondary to diabetic kidney disease and nephrosclerosis. Serum creatinine was 1.2 on 08/19/2023 during last office visit. Patient is admitted to the hospital with complaints of shortness of chest pain. Patient also complained of mild shortness of breath. Chest x-ray showed evidence of pulmonary vascular congestion and patient is currently maintained on IV Lasix. Blood pressure has not been low in fact it is on the higher side. Patient is voiding. Serum creatinine was 1.3 on admission and increased to 1.8 today. 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 Last Myocardial Infarction Date:: 08/18/19 History of Any Multi-Drug Resistant Organisms: MRSA Date of last positivie culture/infection: 07/22/16 MDRO Source:: LOWER LEGS Past Surgical History: Cholecystectomy, Coronary Bypass/CABG, Heart Catheterization, Joint Replacement Additional Past Surgical History / Comment(s): PICC line insertion/removed, bilateral caract removals, COLONOSCOPY, EGD, CANCEROUS SKIN LESIONS REMOVED, TOTAL RIGHT KNEE REPLACEMENT, 06-04-16 QUAD BYPASS Past Anesthesia/Blood Transfusion Reactions: Previous Problems w/ Anesthesia Additional Past Anesthesia/Blood Transfusion Reaction / Comment(s): HAD A HARD TIME COMING OUT OF ANESTHESIA AFTER CHOLECYSTECTOMY Past Psychological History: No Psychological Hx Reported Smoking Status: Former smoker Past Alcohol Use History: None Reported Past Drug Use History: None Reported - Past Family History Father Family Medical History: Vascular Disorder Additional Family Medical History / Comment(s): POOR CIRCULATION-HAD AMPUTATIONS D/T POOR CIRCULATION Mother Family Medical History: Cancer Additional Family Medical History / Comment(s): STOMACH CANCER Medications and Allergies Home Medications Medication Instructions Recorded Confirmed Type allopurinoL [Zyloprim] 300 mg PO DAILY 07/22/16 08/31/23 History Aspirin EC [Ecotrin Low Dose] 81 mg PO DAILY 09/20/18 08/31/23 History HYDROcodone/APAP 7.5-325MG [[place] 1 tab PO BID 07/10/19 08/31/23 History 7.5-325] Magnesium Oxide [Magox 400] 400 mg PO HS 08/17/19 08/31/23 History Turmeric Root Extract [Turmeric] 500 mg PO BID 08/17/19 08/31/23 History Isosorbide Mononitrate ER [Imdur] 60 mg PO DAILY #30 tab 08/19/19 08/31/23 Rx Vitamin B Complex 1 cap PO DAILY 08/29/19 08/31/23 History Nitroglycerin Sl Tabs [Nitrostat] 0.4 mg SUBLINGUAL Q5M PRN #25 tab 09/02/19 08/31/23 Rx Ezetimibe [Zetia] 10 mg PO HS 10/24/21 08/31/23 History Albuterol Inhaler [Ventolin Hfa 2 puff INHALATION RT-Q6H PRN 11/28/22 08/31/23 History Inhaler] Atorvastatin [Lipitor] 80 mg PO HS 11/28/22 08/31/23 History Levothyroxine Sodium [Synthroid] 88 mcg PO DAILY 11/28/22 08/31/23 History Tamsulosin [Flomax] 0.4 mg PO BID 11/28/22 08/31/23 History Cholecalciferol (Vitamin D3) 75 mcg PO HS 05/19/23 08/31/23 History [Vitamin D3 (3000 Iu)] Colchicine [Colcrys] 0.6 mg PO DAILY PRN 05/19/23 08/31/23 History sitaGLIPtin [Januvia] 50 mg PO DAILY 05/19/23 08/31/23 History Metoprolol Tartrate [Lopressor] 100 mg PO BID 30 Days #120 tab 05/20/23 08/31/23 Rx Albuterol Nebulized [Ventolin 2.5 mg INHALATION RT-Q6H PRN 08/31/23 08/31/23 History Nebulized] Empagliflozin [Jardiance] 10 mg PO DIRECTED 08/31/23 08/31/23 History Furosemide [Lasix] 40 mg PO DAILY 08/31/23 08/31/23 History Melatonin 5 mg PO HS PRN 08/31/23 08/31/23 History Allergies Allergy/AdvReac Type Severity Reaction Status Date / Time No Known Allergies Allergy Verified 08/31/23 16:04 Physical Exam Vitals: Vital Signs Temp Pulse Resp BP Pulse Ox 09/03/23 13:55 98.3 F 73 16 150/70 98 09/03/23 07:00 97.6 F 51 L 16 160/60 97 09/03/23 02:00 97.3 F L 60 16 105/71 96 09/02/23 19:27 97.8 F 70 16 182/63 98 Intake and Output 09/03/23 09/03/23 09/03/23 06:59 14:59 22:59 Intake Total 260 Output Total 200 200 Balance -200 60 Intake: Oral 260 Output: Urine 200 200 Other: # Voids 2 # Bowel Movements 1 Weight 134.9 kg Patient is awake, comfortable, no acute distress Examination of the heart S1 and S2 Examination of the lungs bilateral breath sounds are heard Abdomen is soft obese nontender Examination of lower extremity shows edema 1+ bilaterally PLUMBER'S ASSISTANT exam grossly intact Results - Lab Results Most recent lab results Calcium 9.0 mg/dL (8.7-10.3) 09/03/23 05:59 Magnesium 2.0 mg/dL (1.6-2.3) 09/02/23 05:44 09/03/23 05:59 09/03/23 05:59 Assessment and Plan Assessment: 1. Acute kidney injury, rule out urine retention. Possible component of cardiorenal syndrome. UA is benign. Recent ultrasound on 08/14/2023 did not show any evidence of hydronephrosis. 2. Chronic kidney disease and stage IIIa/IIIb secondary to diabetic kidney disease and nephrosclerosis with baseline creatinine around 1.4 to 1.6 mg/dL but recently 1.2 on last office visit on 08/19/2023. Recently started on Jardiance. 3. Volume overload 4. Acute on chronic diastolic CHF Plan: Continue current dose of diuretic. Consider switching to long-acting loop diuretic like torsemide on discharge. Repeat labs in a.m. Check postvoid bladder scan Continue SGLT2 i Thank you for the consultation. We will continue to follow the patient with you during his hospitalization.
--- NOTE | 2023-09-04 06:53 | P.PN ---
Subjective Progress Note Date: 09/03/23 89-year-old male with history of coronary disease and congestive heart failure chronic diastolic Haemocomplettan shortness of breath and chest pain chest pain appears noncardiac EKG did not ST-T wave changes troponins were negative. Patient had a recent stress test which was negative. 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 Patient takes CorMatrix on daily basis at home patient was started on 40 mg IV twice a day. Chest x-ray did show pulmonary serum creatinine within normal limits. He was slightly low patient paraseptal edema. Patient had an echocardiogram in over 2022 which were normal ejection fraction stress test was were done and normal 2022 which showed a fixed defect involving inferior lateral myocardium which is very small. 09/02/2023 Patient is evaluated today sitting up in the chair. Continues to report some shortness of breath however has improved overall, Patient is alert x 3 today less confused. He does have lower extremity pitting edema up to the thighs, mildly improved. Continues on IV lasix. Creatinine increased today and nursing reports patient has had decreased urine output. 09/03/2023 Patient is evaluated sitting up in the chair. He does not want to get into the bed. He continues to report some shortness of breath. His leg edema is improving. Patient has been evaluated by nephrology he does continue on oral Bumex 1 mg daily. He has had about 600 mLs of urine output in the last 24 hours. His creatinine is up to 1.8 . he is also refusing subacute rehab and he will return home on discharge with his . Review of Systems Constitutional: Denied any fatigue denied any fever. Cardio vascular: denied any chest pain, palpitations Gastrointestinal: denied any nausea, vomiting, diarrhea Pulmonary: Reports shortness of breath cough Neurologic denied any new focal deficits All inpatient medications were reviewed and appropriate changes in these medications as dictated in the interval history and assessment and plan. PHYSICAL EXAMINATION: GENERAL: The patient is alert and oriented x3, not in any acute distress. Well developed, well nourished. HEENT: Pupils are round and equally reacting to light. EOMI. No scleral icterus. No conjunctival pallor. Normocephalic, atraumatic. No pharyngeal erythema. No thyromegaly. CARDIOVASCULAR: S1 and S2 present. No murmurs, rubs, or gallops. PULMONARY: Chest is clear to auscultation, no wheezing or crackles. ABDOMEN: Soft, nontender, nondistended, normoactive bowel sounds. No palpable organomegaly. MUSCULOSKELETAL: No joint swelling or deformity. EXTREMITIES: No cyanosis, clubbing, or pedal edema. LE edema from feet to mid thigh. NEUROLOGICAL: Gross neurological examination did not reveal any focal deficits. SKIN: No rashes. Assessment and Plan -Acute on chronic diastolic function. Exacerbation: Continue with IV Lasix 40 mg twice a day monitor lites and kidney function -Chest pain patient had a stress test which showed tiny area of inducible ischemia in the left but no further intervention is recommended by tread tuber machine operator. continue with present cardiac medications. -Leukocytosis reactive without any evidence of infection at this time patient is not having UTI. -General medical debility and weakness PT/OT evaluation -Chronic kidney disease stage IIIb -Hypertension -Hyperlipidemia -Type 2 diabetes mellitus -Coronary disease DVT prophylaxis: subcutaneous heparin GI prophylaxis: pepcid Full Code The impression and plan of care has been dictated by Amirah Kruse, Nurse Practitioner as directed. Dr. Mona MD I have performed a history and physical examination and medical decision making of this patient, discussed the same with the dictator, and agree with the dictators assessment and plan as written, documented as a scribe. Based on total visit time, I have performed more than 50% of this visit. Right radiocephalic Objective - Vital Signs Vital signs: Vital Signs Temp 98.3 F 09/03/23 13:55 Pulse 73 09/03/23 13:55 Resp 16 09/03/23 13:55 BP 150/70 09/03/23 13:55 Pulse Ox 98 09/03/23 13:55 FiO2 Intake & Output 09/02/23 09/03/23 09/03/23 18:59 06:59 18:59 Intake Total 118 260 Output Total 400 200 200 Balance -282 -200 60 Weight 134.9 kg Intake: Oral 118 260 Output: Urine 400 200 200 Other: Voiding Method Toilet # Voids 2 # Bowel Movements 1 - Labs CBC & Chem 7: 09/03/23 05:59 09/03/23 05:59 Labs: Abnormal Lab Results - Last 24 Hours (Table) 09/03/23 09/03/23 Range/Units 05:59 05:59 WBC 10.43 H (4.50-10.00) X 10*3/uL RBC 3.58 L (4.40-5.60) X 10*6/uL Hgb 12.0 L (13.0-17.0) g/dL Hct 36.3 L (39.6-50.0) % MCV 101.4 H (80.0-97.0) FL MCH 33.5 H (27.0-32.0) pg Immature Gran # 0.09 H (0.00-0.04) X 10*3/uL Eosinophils # 0.41 H (0.04-0.35) X 10*3/uL Anion Gap 13.90 H (4.00-12.00) mmol/L BUN 39.7 H (9.0-27.0) mg/dL Creatinine 1.8 H (0.6-1.5) mg/dL Est GFR (CKD-EPI) 37 L (>=60) BUN/Creatinine Ratio 22.06 H (12.00-20.00) Ratio Assessment and Plan Time with Patient: Less than 30
[2023-09-04 08:48] LABS: BUN/Creat Ratio 22.94 Ratio (12.00-20.00); Blood Urea Nitrogen 41.3 mg/dL (9.0-27.0); Carbon Dioxide 22.8 mmol/L (21.6-31.8); Chloride 98 mmol/L (96-109); Glucose 104 mg/dL (70-110); Potassium 4.9 mmol/L (3.5-5.5); Sodium 137 mmol/L (135-145)
--- NOTE | 2023-09-04 11:17 | P.PN ---
Subjective Progress Note Date: 09/04/23 Consult reason: chest pain History of present illness: History of present illness: This is an 83-year-old male patient of Dr. Rafael Teran with past medical history of hypertension, dyslipidemia, hypothyroidism, diabetes mellitus type 2, history of lymphoma, remote history of tobacco use and dependence, coronary artery disease with previous CABG and known severe three-vessel coronary artery disease with patent JUNE to LAD, venous graft to diagonal and a chronically occluded venous graft to PDA and venous graft to the ramus. He had angioplasty with stent placement of the venous graft to the diagonal in 2019. We have been asked to evaluate the patient for chest pain. Patient gives history of having some chest pain and shortness of breath that started Friday evening at 2 AM. It was a sharp in nature. It was different than what he experienced with his previous myocardial infarction. He denies having any dizziness. He states he has not been active and has home care and PT coming in. He has chronic lower extremity edema which is was most severe 1 year ago was treated by Dr. Sinha for wounds. He denies palpitations. He denies smoking. No cough or fever. No wheezing. He denies any blood in his stools no nausea. No stroke or seizure activity. Patient is status post 1 dose of IV Lasix 60 mg followed by 40 mg every 12 hours. EKG sinus rhythm with PVCs Chest x-ray: Cardiomegaly with mild pulmonary vascular congestion. WBC 11.4, hemoglobin 13.4, platelet count 231. INR 1. Electrolytes normal. BUN 23 creatinine 0.96. Troponin negative x 3. Glucose 100. Magnesium 1.8. Liver function test are normal. proBNP 8570. UA 3+ glucose and 2+ protein. Influenza A, influenza B, RSV, COVID-19 not detected. Home cardiac medications: Aspirin 81 mg daily, Lipitor 80 mg at bedtime, Zetia 10 mg at bedtime, Lasix 40 mg daily, Imdur 60 mg daily, magnesium oxide 400 mg at bedtime, Lopressor 100 mg twice daily, Nitrostat as needed. Patient is also on levothyroxine 88 mcg daily and scheduled to start Jardiance. Echocardiogram performed 05/19/2023 revealed EF of 50 to 55%. Limited Doppler study. Lexiscan stress test performed 05/19/2023 revealed predominantly fixed defect involving the inferior lateral myocardium. Tiny area of stress-induced reversible ischemia not entirely excluded. EF 43%. 09/02 Patient states that he is not feeling well today. He complains of feeling weak and dizzy. He denies having any chest pain. He feels that the lower extremity edema is about the same. Blood pressure 135/51, heart rate 70, pulse ox 96% on room air. Repeat blood work reveals WBC 10.7, hemoglobin 12.7, platelet count 207. Sodium 138, potassium 4.3, BUN 37 creatinine 1.65. proBNP 3750. 09/03 Patient states that his breathing is improved. He denies chest pain. In general, he is feeling a little better from yesterday. Yesterday, patient was transition from IV Lasix twice daily to oral twice daily. Is noted to have worsening renal function for which his BUN is 39 and creatinine 1.8. Blood pressure is 160/60 previous blood pressure 105/71. Heart rate is 51, pulse ox 97% on room air. 09/04 Patient remains in a sinus rhythm. He continues to have lower extremity edema but stable. Blood pressure 116/48, heart rate 67, pulse ox 96% on room air. Patient's weight is down 6 kg since admission. Repeat blood work reveals sodium 137, potassium 4.9, BUN 41 creatinine 1.8. Physical examination: Gen: This is an 83-year-old male in no acute distress. VS: reviewed blood pressure 177/56, heart rate 55, pulse ox 95% on room air. HEENT: Head is atraumatic, normocephalic. Pupils equal, round. Sclerae is anicteric. NECK: Supple. No JVD. LUNGS: Diminished breath sounds. No intercostal retractions. HEART: Regular rate and rhythm. No murmur. ABDOMEN: Soft No tenderness. EXTREMITIES: 2+ pedal edema. No calf tenderness. NEUROLOGICAL: Patient is awake, alert and oriented x3. Assessment: Acute on chronic diastolic heart failure Chest pain, acute coronary syndrome ruled out Known history of coronary artery disease Hypertension Dyslipidemia Hypothyroidism Diabetes mellitus type 2 Acute kidney injury Plan: Continue patient's current cardiac medications Patient is cleared for discharge home and may follow-up with Dr. Rafael Teran in 2 weeks. Cardiology will sign off this case and follow on an as-needed basis. Please reconsult for any new concerns. Nurse practitioner note has been reviewed, I agree with documented findings and plan of care. Patient was seen and examined. Objective - Vital Signs Vital signs: Vital Signs Temp 98.0 F 09/04/23 02:37 Pulse 67 09/04/23 02:37 Resp 18 09/04/23 02:37 BP 116/49 09/04/23 02:37 Pulse Ox 96 09/04/23 02:37 FiO2 Intake & Output 09/03/23 09/04/23 09/04/23 18:59 06:59 18:59 Intake Total 440 Output Total 200 500 Balance 240 -500 Weight 130 kg Intake: Oral 440 Output: Urine 200 500 Other: Voiding Method Toilet # Voids 2 # Bowel Movements 1 - Labs CBC & Chem 7: 09/03/23 05:59 09/04/23 05:30 Labs: Abnormal Lab Results - Last 24 Hours (Table) 09/03/23 09/03/23 Range/Units 05:59 05:59 WBC 10.43 H (4.50-10.00) X 10*3/uL RBC 3.58 L (4.40-5.60) X 10*6/uL Hgb 12.0 L (13.0-17.0) g/dL Hct 36.3 L (39.6-50.0) % MCV 101.4 H (80.0-97.0) FL MCH 33.5 H (27.0-32.0) pg Immature Gran # 0.09 H (0.00-0.04) X 10*3/uL Eosinophils # 0.41 H (0.04-0.35) X 10*3/uL Anion Gap 13.90 H (4.00-12.00) mmol/L BUN 39.7 H (9.0-27.0) mg/dL Creatinine 1.8 H (0.6-1.5) mg/dL Est GFR (CKD-EPI) 37 L (>=60) BUN/Creatinine Ratio 22.06 H (12.00-20.00) Ratio
--- NOTE | 2023-09-04 18:06 | P.PN ---
Subjective Patient is seen for follow-up for chronic kidney disease and acute kidney injury. Serum creatinine staying at about 1.8 mg/dL. Patient was noted to have urine retention and Bosch catheter was placed today. Maintained on oral Bumex. No significant complaints today. Objective - Vital Signs Vital signs: Vital Signs Temp 98.0 F 09/04/23 15:00 Pulse 64 09/04/23 15:00 Resp 20 09/04/23 15:00 BP 173/65 09/04/23 15:00 Pulse Ox 98 09/04/23 07:00 FiO2 Intake & Output 09/03/23 09/04/23 09/04/23 18:59 06:59 18:59 Intake Total 440 420 Output Total 875 948 7381 Balance 240 500 -1962 Weight 130 kg Intake: Oral 440 420 Output: Urine 570 748 6875 Uretheral (Bosch) 850 Post Void Residual 832 Other: Voiding Method Toilet Indwelling Catheter # Voids 2 # Bowel Movements 1 - Exam Patient is awake, comfortable, no acute distress Examination of the heart S1 and S2 Examination of the lungs decreased breath sounds at the bases Abdomen is soft nontender obese Examination lower extremity shows edema 2+ bilaterally with chronic skin changes COMBATANT DIVER QUALIFIED exam grossly intact - Labs CBC & Chem 7: 09/03/23 05:59 09/04/23 05:30 Labs: Abnormal Lab Results - Last 24 Hours (Table) 09/04/23 Range/Units 05:30 Anion Gap 16.20 H (4.00-12.00) mmol/L BUN 41.3 H (9.0-27.0) mg/dL Creatinine 1.8 H (0.6-1.5) mg/dL Est GFR (CKD-EPI) 37 L (>=60) BUN/Creatinine Ratio 22.94 H (12.00-20.00) Ratio Assessment and Plan Assessment: 1. Acute kidney injury, nonoliguric. Patient is noted to have urine retention. Bosch catheter placed today. Possible component of cardiorenal syndrome. UA is benign. Recent ultrasound on 08/14/2023 did not show any evidence of hydronephrosis. 2. Chronic kidney disease and stage IIIa/IIIb secondary to diabetic kidney disease and nephrosclerosis with baseline creatinine around 1.4 to 1.6 mg/dL but recently 1.2 on last office visit on 08/19/2023. Recently started on Jardiance. 3. Volume overload 4. Acute on chronic diastolic CHF Plan: Increase Bumex Continue with Bosch catheter Repeat labs in a.m. Patient can likely be discharged tomorrow and follow-up as outpatient. He can be switched to torsemide upon discharge.
[2023-09-04] MEDS: BUMETANIDE 0.25 MG/ML 4 ML VIAL IV SCH (20:16)
--- NOTE | 2023-09-04 22:07 | P.PN ---
Subjective Progress Note Date: 09/04/23 89-year-old male with history of coronary disease and congestive heart failure chronic diastolic Haemocomplettan shortness of breath and chest pain chest pain appears noncardiac EKG did not ST-T wave changes troponins were negative. Patient had a recent stress test which was negative. 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 Patient takes CorMatrix on daily basis at home patient was started on 40 mg IV twice a day. Chest x-ray did show pulmonary serum creatinine within normal limits. He was slightly low patient paraseptal edema. Patient had an echocardiogram in over 2022 which were normal ejection fraction stress test was were done and normal 2022 which showed a fixed defect involving inferior lateral myocardium which is very small. 09/02/2023 Patient is evaluated today sitting up in the chair. Continues to report some shortness of breath however has improved overall, Patient is alert x 3 today less confused. He does have lower extremity pitting edema up to the thighs, mildly improved. Continues on IV lasix. Creatinine increased today and nursing reports patient has had decreased urine output. 09/03/2023 Patient is evaluated sitting up in the chair. He does not want to get into the bed. He continues to report some shortness of breath. His leg edema is improving. Patient has been evaluated by nephrology he does continue on oral Bumex 1 mg daily. He has had about 600 mLs of urine output in the last 24 hours. His creatinine is up to 1.8 . he is also refusing subacute rehab and he will return home on discharge with his . 09/04/2023 Patient is evaluated today sitting up in the chair. Maintained on oral bumex. Creatinine 1.8. Bladder scan for greater than 800 today and indwelling catheter was placed with 1.9L of urine output. Review of Systems Constitutional: Denied any fatigue denied any fever. Cardio vascular: denied any chest pain, palpitations Gastrointestinal: denied any nausea, vomiting, diarrhea Pulmonary: Reports shortness of breath cough Neurologic denied any new focal deficits All inpatient medications were reviewed and appropriate changes in these medications as dictated in the interval history and assessment and plan. PHYSICAL EXAMINATION: GENERAL: The patient is alert and oriented x3, not in any acute distress. Well developed, well nourished. HEENT: Pupils are round and equally reacting to light. EOMI. No scleral icterus. No conjunctival pallor. Normocephalic, atraumatic. No pharyngeal erythema. No thyromegaly. CARDIOVASCULAR: S1 and S2 present. No murmurs, rubs, or gallops. PULMONARY: Chest is clear to auscultation, no wheezing or crackles. ABDOMEN: Soft, nontender, nondistended, normoactive bowel sounds. No palpable organomegaly. MUSCULOSKELETAL: No joint swelling or deformity. EXTREMITIES: No cyanosis, clubbing, or pedal edema. LE edema from feet to mid thigh. NEUROLOGICAL: Gross neurological examination did not reveal any focal deficits. SKIN: No rashes. Assessment and Plan -Acute on chronic diastolic function. Exacerbation: Continue with IV Lasix 40 mg twice a day monitor lites and kidney function -Chest pain patient had a stress test which showed tiny area of inducible ischemia in the left but no further intervention is recommended by donation worker. continue with present cardiac medications. -Urinary retention indwelling catheter placed. Pt refused renal ultrasound. -Leukocytosis reactive without any evidence of infection at this time patient is not having UTI. -General medical debility and weakness PT/OT evaluation -Chronic kidney disease stage IIIb -Hypertension -Hyperlipidemia -Type 2 diabetes mellitus -Coronary disease DVT prophylaxis: subcutaneous heparin GI prophylaxis: pepcid Full Code Repeat labs in the AM. Recommend to continue with indwelling catheter. Discharge in the next 24 hours The impression and plan of care has been dictated by Amirah Kruse, Nurse Practitioner as directed. Dr. Mona MD I have performed a history and physical examination and medical decision making of this patient, discussed the same with the dictator, and agree with the dictators assessment and plan as written, documented as a scribe. Based on total visit time, I have performed more than 50% of this visit. Right radiocephalic Objective - Vital Signs Vital signs: Vital Signs Temp 98.0 F 09/04/23 15:00 Pulse 64 09/04/23 15:00 Resp 20 09/04/23 15:00 BP 173/65 09/04/23 15:00 Pulse Ox 98 09/04/23 07:00 FiO2 Intake & Output 09/04/23 09/04/23 09/05/23 06:59 18:59 06:59 Intake Total 660 Output Total 500 3282 Balance -500 -2622 Weight 130 kg Intake: Oral 660 Output: Urine 500 2450 Uretheral (Bosch) 850 Post Void Residual 832 Other: Voiding Method Toilet Indwelling Catheter # Voids 1 - Labs CBC & Chem 7: 09/03/23 05:59 09/04/23 05:30 Labs: Abnormal Lab Results - Last 24 Hours (Table) 09/04/23 Range/Units 05:30 Anion Gap 16.20 H (4.00-12.00) mmol/L BUN 41.3 H (9.0-27.0) mg/dL Creatinine 1.8 H (0.6-1.5) mg/dL Est GFR (CKD-EPI) 37 L (>=60) BUN/Creatinine Ratio 22.94 H (12.00-20.00) Ratio Assessment and Plan Time with Patient: Less than 30
[2023-09-05 11:04] LABS: Blood Urea Nitrogen 40.8 mg/dL (9.0-27.0); Calcium 9.2 mg/dL (8.7-10.3); Carbon Dioxide 24.9 mmol/L (21.6-31.8); Chloride 101 mmol/L (96-109); Glucose 133 mg/dL (70-110); Potassium 4.1 mmol/L (3.5-5.5); Sodium 139 mmol/L (135-145)
--- NOTE | 2023-09-05 11:16 | P.PN ---
Subjective Patient is seen for follow-up for chronic kidney disease and acute kidney injury. Patient was noted to have urine retention and currently with indwelling Bosch catheter. Serum creatinine staying at about 1.8 mg/dL. Today it is at 2.0 mg/dL. Bumex was changed to IV yesterday and patient has received 2 doses of IV Bumex. Family reports that patient is slightly confused today. Patient states he wants to go home. No complaints of shortness of breath. No fever noted. Objective - Vital Signs Vital signs: Vital Signs Temp 97.7 F 09/05/23 08:00 Pulse 50 L 09/05/23 08:00 Resp 16 09/05/23 08:00 BP 167/51 09/05/23 08:00 Pulse Ox 95 09/05/23 08:00 FiO2 Intake & Output 09/04/23 09/05/23 09/05/23 18:59 06:59 18:59 Intake Total 660 240 Output Total 3282 900 Balance -2622 -900 240 Weight 136.2 kg Intake: Oral 660 240 Output: Urine 2450 900 Uretheral (Bosch) 850 Post Void Residual 832 Other: Voiding Method Indwelling Catheter Indwelling Catheter Indwelling Catheter # Voids 1 - Exam Patient is awake, comfortable, no acute distress Examination of the heart S1 and S2 Examination of the lungs decreased breath sounds at the bases Abdomen is soft nontender obese Examination lower extremity shows edema 2+ bilaterally with chronic skin changes GEOSPATIAL SYSTEMS INTEGRATOR exam grossly intact - Labs CBC & Chem 7: 09/03/23 05:59 09/05/23 06:36 Labs: Abnormal Lab Results - Last 24 Hours (Table) 09/05/23 Range/Units 06:36 Anion Gap 13.10 H (4.00-12.00) mmol/L BUN 40.8 H (9.0-27.0) mg/dL Creatinine 2.0 H (0.6-1.5) mg/dL Est GFR (CKD-EPI) 33 L (>=60) BUN/Creatinine Ratio 20.40 H (12.00-20.00) Ratio Glucose 133 H (70-110) mg/dL Assessment and Plan Assessment: 1. Acute kidney injury, nonoliguric. Patient is noted to have urine retention. Bosch catheter placed. Possible component of cardiorenal syndrome. UA is benign. Recent ultrasound on 08/14/2023 did not show any evidence of hydronephrosis. UA showed 2+ protein otherwise benign on 08/31/2023 2. Chronic kidney disease and stage IIIa/IIIb secondary to diabetic kidney disease and nephrosclerosis with baseline creatinine around 1.4 to 1.6 mg/dL but recently 1.2 on last office visit on 08/19/2023. Recently started on Jardiance. 3. Volume overload 4. Acute on chronic diastolic CHF Plan: Okay to discharge patient on torsemide 20 mg daily if mentation improves throughout the day. Consider repeating UA if patient remains confused or with worsening mentation. Follow-up as outpatient in 1 to 2 weeks.
--- NOTE | 2023-09-05 16:51 | P.PN ---
Subjective Progress Note Date: 09/05/23 89-year-old male with history of coronary disease and congestive heart failure chronic diastolic Haemocomplettan shortness of breath and chest pain chest pain appears noncardiac EKG did not ST-T wave changes troponins were negative. Patient had a recent stress test which was negative. 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 Patient takes CorMatrix on daily basis at home patient was started on 40 mg IV twice a day. Chest x-ray did show pulmonary serum creatinine within normal limits. He was slightly low patient paraseptal edema. Patient had an echocardiogram in over 2022 which were normal ejection fraction stress test was were done and normal 2022 which showed a fixed defect involving inferior lateral myocardium which is very small. 09/02/2023 Patient is evaluated today sitting up in the chair. Continues to report some shortness of breath however has improved overall, Patient is alert x 3 today less confused. He does have lower extremity pitting edema up to the thighs, mildly improved. Continues on IV lasix. Creatinine increased today and nursing reports patient has had decreased urine output. 09/03/2023 Patient is evaluated sitting up in the chair. He does not want to get into the bed. He continues to report some shortness of breath. His leg edema is improving. Patient has been evaluated by nephrology he does continue on oral Bumex 1 mg daily. He has had about 600 mLs of urine output in the last 24 hours. His creatinine is up to 1.8 . he is also refusing subacute rehab and he will return home on discharge with his . 09/04/2023 Patient is evaluated today sitting up in the chair. Maintained on oral bumex. Creatinine 1.8. Bladder scan for greater than 800 today and indwelling catheter was placed with 1.9L of urine output. 09/05/2022 Patient is evaluated today sitting in the chair. is at the bedside. He was seen in consultation by nephrology recommending to transition to IV diuretics will monitor the patient overnight and possibly home in the morning. He has had indwelling catheter placed urine is a dark jerrica color. His creatinine today is 2.0. Review of Systems Constitutional: Denied any fatigue denied any fever. Cardio vascular: denied any chest pain, palpitations Gastrointestinal: denied any nausea, vomiting, diarrhea Pulmonary: Reports shortness of breath cough Neurologic denied any new focal deficits All inpatient medications were reviewed and appropriate changes in these medications as dictated in the interval history and assessment and plan. PHYSICAL EXAMINATION: GENERAL: The patient is alert and oriented x3, not in any acute distress. Well developed, well nourished. HEENT: Pupils are round and equally reacting to light. EOMI. No scleral icterus. No conjunctival pallor. Normocephalic, atraumatic. No pharyngeal erythema. No thyromegaly. CARDIOVASCULAR: S1 and S2 present. No murmurs, rubs, or gallops. PULMONARY: Chest is clear to auscultation, no wheezing or crackles. ABDOMEN: Soft, nontender, nondistended, normoactive bowel sounds. No palpable organomegaly. MUSCULOSKELETAL: No joint swelling or deformity. EXTREMITIES: No cyanosis, clubbing, or pedal edema. LE edema from feet to mid thigh. NEUROLOGICAL: Gross neurological examination did not reveal any focal deficits. SKIN: No rashes. Assessment and Plan -Acute on chronic diastolic function. Exacerbation: Patient will continue with IV Bumex twice a day and repeat labs in the morning. -Chest pain patient had a stress test which showed tiny area of inducible ischemia in the left but no further intervention is recommended by automotive quality engineer. continue with present cardiac medications. -Urinary retention indwelling catheter placed. Pt refused renal ultrasound. -Leukocytosis reactive without any evidence of infection at this time patient is not having UTI. -General medical debility and weakness PT/OT evaluation -Chronic kidney disease stage IIIb -Hypertension -Hyperlipidemia -Type 2 diabetes mellitus -Stage I pressure injury coccyx patient will continue with zinc paste and recommend pressure offloading -Coronary disease DVT prophylaxis: subcutaneous heparin GI prophylaxis: pepcid Full Code Repeat labs in the AM. Recommend to continue with indwelling catheter. Discharge in the next 24 hours The impression and plan of care has been dictated by Amirah Kruse Nurse Practitioner as directed. Dr. Mona MD I have performed a history and physical examination and medical decision making of this patient, discussed the same with the dictator, and agree with the dictators assessment and plan as written, documented as a scribe. Based on total visit time, I have performed more than 50% of this visit. Right radiocephalic Objective - Vital Signs Vital signs: Vital Signs Temp 97.9 F 09/05/23 14:00 Pulse 71 09/05/23 14:00 Resp 16 09/05/23 14:00 BP 114/55 09/05/23 14:00 Pulse Ox 96 09/05/23 14:00 FiO2 Intake & Output 09/04/23 09/05/23 09/05/23 18:59 06:59 18:59 Intake Total 660 720 Output Total 3282 900 250 Balance -2622 -900 470 Weight 136.2 kg Intake: Oral 660 720 Output: Urine 2450 900 250 Uretheral (Bosch) 850 Post Void Residual 832 Other: Voiding Method Indwelling Catheter Indwelling Catheter Indwelling Catheter # Voids 1 - Labs CBC & Chem 7: 09/03/23 05:59 09/05/23 06:36 Labs: Abnormal Lab Results - Last 24 Hours (Table) 09/05/23 Range/Units 06:36 Anion Gap 13.10 H (4.00-12.00) mmol/L BUN 40.8 H (9.0-27.0) mg/dL Creatinine 2.0 H (0.6-1.5) mg/dL Est GFR (CKD-EPI) 33 L (>=60) BUN/Creatinine Ratio 20.40 H (12.00-20.00) Ratio Glucose 133 H (70-110) mg/dL Assessment and Plan Time with Patient: Less than 30
[2023-09-06 07:57] VITALS: RESP 20
[2023-09-06 10:29] LABS: Blood Urea Nitrogen 39.9 mg/dL (9.0-27.0); Calcium 9.1 mg/dL (8.7-10.3); Carbon Dioxide 25.2 mmol/L (21.6-31.8); Chloride 100 mmol/L (96-109); Glucose 103 mg/dL (70-110); Potassium 4.2 mmol/L (3.5-5.5); Sodium 139 mmol/L (135-145)
--- NOTE | 2023-09-06 11:18 | P.PN ---
Subjective Patient is seen for follow-up for chronic kidney disease and acute kidney injury. Patient was noted to have urine retention and currently with indwelling Bosch catheter. Serum creatinine staying at about 1.8 mg/dL, increased to 2.0 yesterday and it is 1.9 today. According to nursing staff it appears that patient walked into a different room last night. He may still have confusion on and off. Objective - Vital Signs Vital signs: Vital Signs Temp 97.8 F 09/06/23 07:40 Pulse 68 09/06/23 07:40 Resp 20 09/06/23 07:40 BP 183/77 09/06/23 07:40 Pulse Ox 98 09/06/23 07:40 FiO2 Intake & Output 09/05/23 09/06/23 09/06/23 18:59 06:59 18:59 Intake Total 720 Output Total 350 500 Balance 370 -500 Weight 135.4 kg Intake: Oral 720 Output: Urine 350 500 Other: Voiding Method Indwelling Catheter Indwelling Catheter Indwelling Catheter - Exam Patient is awake, comfortable, no acute distress Answers all questions appropriately this morning. Examination of the heart S1 and S2 Examination of the lungs decreased breath sounds at the bases Abdomen is soft nontender obese Examination lower extremity shows edema 2+ bilaterally with chronic skin changes SYSTEMS SECURITY CONSULTANT exam grossly intact - Labs CBC & Chem 7: 09/03/23 05:59 09/06/23 06:12 Labs: Abnormal Lab Results - Last 24 Hours (Table) 09/06/23 Range/Units 06:12 Anion Gap 13.80 H (4.00-12.00) mmol/L BUN 39.9 H (9.0-27.0) mg/dL Creatinine 1.9 H (0.6-1.5) mg/dL Est GFR (CKD-EPI) 35 L (>=60) BUN/Creatinine Ratio 21.00 H (12.00-20.00) Ratio Assessment and Plan Assessment: 1. Acute kidney injury, nonoliguric. Patient is noted to have urine retention. Bosch catheter placed. Possible component of cardiorenal syndrome. UA is benign. Recent ultrasound on 08/14/2023 did not show any evidence of hydronephrosis. UA showed 2+ protein otherwise benign on 08/31/2023 2. Chronic kidney disease and stage IIIa/IIIb secondary to diabetic kidney disease and nephrosclerosis with baseline creatinine around 1.4 to 1.6 mg/dL but recently 1.2 on last office visit on 08/19/2023. Recently started on Jardiance. 3. Volume overload 4. Acute on chronic diastolic CHF Plan: Switch IV Bumex to torsemide Repeat UA
[2023-09-06] MEDS: polyethylene glycoL 3350 17 GM POWD.PACK PO SCH (11:56)
[2023-09-06 12:15] LABS: Appearance,Urine Cloudy (Clear); Bilirubin,Urine Negative (Negative); Blood,Urine Large (Negative); Color,Urine Light Red; Glucose,Urine (UA) 2+ (Negative); Ketones,Urine Negative (Negative); Leukocyte Esterase,Urine Small (Negative); Nitrite,Urine Negative (Negative); PH, Urine 5.5 (5.0-8.0); Protein,Urine 1+ (Negative); RBC,Urine >182 /hpf (0-5); Specific Gravity,Urine 1.015 (1.001-1.035); Urobilinogen,Urine <2.0 mg/dL (<2.0); WBC,Urine 9 /hpf (0-5)
[2023-09-06 14:55] VITALS: BP 120/57; PULSE 62; TEMP 98.3
[2023-09-07] MEDS ORDERED: TORSEMIDE 20 MG TAB PO SCH (09:00)
--- NOTE | 2023-09-08 21:31 | P.DS ---
Providers Date of admission: 09/02/23 13:07 Attending physician: Frederick Mcfarlane MD Consults: 08/31/23 15:49 Consult Physician Urgent Consulting Provider: [facility] Consult Reason/Comments: acute chest pain, aechf Do you want consulting provider notified?: Yes 09/02/23 13:00 Consult Physician Routine Consulting Provider: Elizabeth Fraire Consult Reason/Comments: MARTIN Do you want consulting provider notified?: Yes Primary care physician: Crow Caceres [facility] Course: Final Diagnosis -Acute on chronic diastolic function. Exacerbation: -Chest pain patient had a stress test which showed tiny area of inducible ischemia in the left but no further intervention is recommended by backhoe operator. -Urinary retention indwelling catheter placed. Pt refused renal ultrasound. -Leukocytosis reactive without any evidence of infection at this time patient is not having UTI. -General medical debility and weakness PT/OT evaluation -Chronic kidney disease stage IIIb -Hypertension -Hyperlipidemia -Type 2 diabetes mellitus -Stage I pressure injury coccyx patient will continue with zinc paste and recommend pressure offloading -Coronary disease Discharge Disposition Patient stable for discharge home on oral torsemide. He will follow-up with nephrology and cardiology in the office. Patient instructed to monitor his sodium intake and to monitor his daily weight. He has also been started on R anexa every 12 hours. Repeat BMP MP and CBC in 2 to 3 days. Follow-up with his PCP Dr. Maddie Caceres on discharge. Hospital Course This is a 89-year-old male with history of coronary disease and congestive heart failure chronic diastolic dysfunction. Patient comes in with complaitns of shortness of breath and chest pain, chest pain appears noncardiac EKG did not ST-T wave changes troponins were negative. Patient had a recent stress test which was negative. 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 Patient felt to be in volume overload on admission with elevated proBNP 3750. Creatinine 1.65. WBC 10.74. Chest x-ray did show pulmonary congestion. Patient does have significant lower extremity edema pitting. Patient had an echocardiogram in over 2022 which were normal ejection fraction stress test was were done and normal 2022 which showed a fixed defect involving inferior lateral myocardium which is very small. He was admitted to the hospital under medicine with consult placed to cardiology, nephrology was also consulted. Patient diuresed well, was also found to have urinary retention and requiring placement of indwelling Castillo catheter. He is already maintained on Flomax as an outpatient basis has follow-up with urology in the past. Patient will discharge with a Castillo catheter in place nephrology is also recommended transition to torsemide daily on discharge. Patient is not requiring any oxygen he has been up ambulating. He does not want to go to subacute rehab. Hemodynamically he is stable. He is not reporting any shortness of breath and his lung sounds are clear. Please see medicati on reconciliation for a list of current medications. Thank you for allowing us to participate in the care of this patient. The impression and plan of care has been dictated by Amirah Kruse, Nurse Practitioner as directed. Dr. Mona MD I have performed a history and physical examination and medical decision making of this patient, discussed the same with the dictator, and agree with the dictators assessment and plan as written, documented as a scribe. Based on total visit time, I have performed more than 50% of this visit. Right radiocephalic Patient Condition at Discharge: Stable Plan - Discharge Summary New Discharge Prescriptions: New Torsemide [Demadex] 20 mg PO DAILY #30 tab Famotidine [Pepcid] 20 mg PO DAILY #30 tab Ranolazine [Ranexa] 500 mg PO Q12HR #30 tab polyethylene glycoL 3350 [Miralax] 17 gm PO DAILY packet Nystatin 100,000 Unit/gm Powd [Mycostatin Powder] 1 applic TOPICAL BID #1 each Acetaminophen Tab [Tylenol] 650 mg PO Q6HR PRN tab PRN Reason: Fever And/ Or Pain Continue allopurinoL [Zyloprim] 300 mg PO DAILY Aspirin EC [Ecotrin Low Dose] 81 mg PO DAILY HYDROcodone/APAP 7.5-325MG [[place] 7.5-325] 1 tab PO BID Turmeric Root Extract [Turmeric] 500 mg PO BID Magnesium Oxide [Magox 400] 400 mg PO HS Isosorbide Mononitrate ER [Imdur] 60 mg PO DAILY #30 tab Vitamin B Complex 1 cap PO DAILY Nitroglycerin Sl Tabs [Nitrostat] 0.4 mg SUBLINGUAL Q5M PRN #25 tab PRN Reason: Chest Pain Ezetimibe [Zetia] 10 mg PO HS Albuterol Inhaler [Ventolin Hfa Inhaler] 2 puff INHALATION RT-Q6H PRN PRN Reason: Shortness Of Breath Tamsulosin [Flomax] 0.4 mg PO BID Colchicine [Colcrys] 0.6 mg PO DAILY PRN PRN Reason: Gout Cholecalciferol (Vitamin D3) [Vitamin D3 (3000 Iu)] 75 mcg PO HS Metoprolol Tartrate [Lopressor] 100 mg PO BID 30 Days #120 tab Melatonin 5 mg PO HS PRN PRN Reason: Insomnia Levothyroxine Sodium [Synthroid] 88 mcg PO DAILY Atorvastatin [Lipitor] 80 mg PO HS sitaGLIPtin [Januvia] 50 mg PO DAILY Empagliflozin [Jardiance] 10 mg PO DIRECTED Albuterol Nebulized [Ventolin Nebulized] 2.5 mg INHALATION RT-Q6H PRN PRN Reason: Shortness Of Breath Discontinued Furosemide [Lasix] 40 mg PO DAILY Discharge Medication List allopurinoL [Zyloprim] 300 mg PO DAILY 07/22/16 [History] Aspirin EC [Ecotrin Low Dose] 81 mg PO DAILY 09/20/18 [History] HYDROcodone/APAP 7.5-325MG [[place] 7.5-325] 1 tab PO BID 07/10/19 [History] Magnesium Oxide [Magox 400] 400 mg PO HS 08/17/19 [History] Turmeric Root Extract [Turmeric] 500 mg PO BID 08/17/19 [History] Isosorbide Mononitrate ER [Imdur] 60 mg PO DAILY #30 tab 08/19/19 [Rx] Vitamin B Complex 1 cap PO DAILY 08/29/19 [History] Nitroglycerin Sl Tabs [Nitrostat] 0.4 mg SUBLINGUAL Q5M PRN #25 tab 09/02/19 [Rx] Ezetimibe [Zetia] 10 mg PO HS 10/24/21 [History] Albuterol Inhaler [Ventolin Hfa Inhaler] 2 puff INHALATION RT-Q6H PRN 11/28/22 [History] Atorvastatin [Lipitor] 80 mg PO HS 11/28/22 [History] Levothyroxine Sodium [Synthroid] 88 mcg PO DAILY 11/28/22 [History] Tamsulosin [Flomax] 0.4 mg PO BID 11/28/22 [History] Cholecalciferol (Vitamin D3) [Vitamin D3 (3000 Iu)] 75 mcg PO HS 05/19/23 [History] Colchicine [Colcrys] 0.6 mg PO DAILY PRN 05/19/23 [History] sitaGLIPtin [Januvia] 50 mg PO DAILY 05/19/23 [History] Metoprolol Tartrate [Lopressor] 100 mg PO BID 30 Days #120 tab 05/20/23 [Rx] Albuterol Nebulized [Ventolin Nebulized] 2.5 mg INHALATION RT-Q6H PRN 08/31/23 [History] Empagliflozin [Jardiance] 10 mg PO DIRECTED 08/31/23 [History] Melatonin 5 mg PO HS PRN 08/31/23 [History] Acetaminophen Tab [Tylenol] 650 mg PO Q6HR PRN tab 09/06/23 [Rx] Famotidine [Pepcid] 20 mg PO DAILY #30 tab 09/06/23 [Rx] Nystatin 100,000 Unit/gm Powd [Mycostatin Powder] 1 applic TOPICAL BID #1 each 09/06/23 [Rx] Ranolazine [Ranexa] 500 mg PO Q12HR #30 tab 09/06/23 [Rx] Torsemide [Demadex] 20 mg PO DAILY #30 tab 09/06/23 [Rx] polyethylene glycoL 3350 [Miralax] 17 gm PO DAILY packet 09/06/23 [Rx] Follow up Appointment(s)/Referral(s): Crow Caceres DO [Primary Care Provider] - 1-2 days (please call and make follow up appt. offices closed) [facility] [NON-[facility]FF] - 1 Week Yong Mendosa DO [STAFF PHYSICIAN] - 1 Week (please call and make follow up appt. offices closed) Piotr Teran MD [STAFF PHYSICIAN] - 2 Weeks (please call and make follow up appt. offices closed) Denver Borjas MD [STAFF PHYSICIAN] - 1 Week (please call and make follow up appt. offices closed) Ambulatory/Diagnostic Orders: Basic Metabolic Panel [LAB.AMB] Location: None Selected Complete Blood Count w/diff [LAB.AMB] Time Frame: 3 Days, Location: None Selected Patient Instructions/Handouts: Heart Failure (DC), Chest Pain (DC), Castillo Catheter Placement and Care (DC) Activity/Diet/Wound Care/Special Instructions: Continue with indwelling catheter. Repeat labs in 2 to 3 days. Follow up with urology on discharge regarding the castillo and urinary retention. Follow up with your taping machine operator and backhoe operator Continue with zinc barrier paste and pressure offloading to the buttock. Discharge/Stand Alone Forms: Community Resources, Help In The Home Discharge Disposition: HOME WITH HOME HEALTH SERVICES
== END 2023-09-06 16:45 | disposition home health service (06) | DRG 291 ==
LOC: EC 12:59 → 6NMEDSUR 15:51 → OBSVTOIN 09-02 13:07
PROVIDERS: ADMIT Internal Medicine; ATTEND Internal Medicine
DX: I13.0 Hypertensive heart and chronic kidney disease with heart failure and stage 1 through stage 4 chronic kidney disease, or unspecified chronic kidney disease (principal); I50.33 Acute on chronic diastolic (congestive) heart failure; N17.9 Acute kidney failure, unspecified; I25.110 Atherosclerotic heart disease of native coronary artery with unstable angina pectoris; I25.2 Old myocardial infarction; E03.9 Hypothyroidism, unspecified; E11.22 Type 2 diabetes mellitus with diabetic chronic kidney disease; M54.9 Dorsalgia, unspecified; E78.5 Hyperlipidemia, unspecified; L89.151 Pressure ulcer of sacral region, stage 1; Z87.891 Personal history of nicotine dependence; R33.9 Retention of urine, unspecified; G89.29 Other chronic pain; I49.3 Ventricular premature depolarization; M1A.9XX0 Chronic gout, unspecified, without tophus (tophi); Z11.52 Encounter for screening for COVID-19; Z85.828 Personal history of other malignant neoplasm of skin; N18.32 Chronic kidney disease, stage 3b; Z79.82 Long term (current) use of aspirin; Z79.84 Long term (current) use of oral hypoglycemic drugs; Z79.890 Hormone replacement therapy; Z79.899 Other long term (current) drug therapy; Z85.72 Personal history of non-Hodgkin lymphomas; Z96.651 Presence of right artificial knee joint; Z95.1 Presence of aortocoronary bypass graft; Z86.14 Personal history of Methicillin resistant Staphylococcus aureus infection; Z92.21 Personal history of antineoplastic chemotherapy; R53.81 Other malaise
CPT/HCPCS: 36415; 70450; 71046; 72125; 80048; 80053; 81001; 83690; 83735; 83880; 84484; 85025; 85610; 85730; 87636; 93005; 96374; 99285

== ENCOUNTER 2023-09-09 23:59 | Emergency (ER) | payer MEDICARE ==
[2023-09-10 00:24] LABS: Basophils # (A) 0.1 k/uL (0-0.2); Basophils % (A) 1 %; Eosinophils # (A) 0.5 k/uL (0-0.7); Eosinophils % (A) 4 %; HCT 35.7 % (39.0-53.0); Lymphocytes # (A) 1.5 k/uL (1.0-4.8); Lymphocytes % (A) 13 %; MCHC 33.5 g/dL (31.0-37.0); MCV 101.4 fL (80.0-100.0); Macrocytosis Slight; Mean Platelet Volume 8.2; Monocytes # (A) 0.8 k/uL (0-1.0); Monocytes % (A) 7 %; Neutrophils # (A) 8.2 k/uL (1.3-7.7); Neutrophils % (A) 73 %; Platelet Count 244 k/uL (150-450); RBC 3.52 m/uL (4.30-5.90); RDW 14.6 % (11.5-15.5); WBC 11.2 k/uL (3.8-10.6)
[2023-09-10 00:34] VITALS: TEMP 97.8
[2023-09-10 00:37] LABS: ALT 16 U/L (4-49); AST 24 U/L (17-59); African American GFR (CKD) 48 (>60 ml/min/1.73 sqM); Albumin 3.6 g/dL (3.5-5.0); Alkaline Phosphatase 90 U/L (38-126); Anion Gap 7 mmol/L; Blood Urea Nitrogen 40 mg/dL (9-20); Carbon Dioxide 27 mmol/L (22-30); Chloride 102 mmol/L (98-107); Glucose 112 mg/dL (74-99); Magnesium 2.5 mg/dL (1.6-2.3); Non-African American GFR(CKD) 42 (>60 ml/min/1.73 sqM); Potassium 4.2 mmol/L (3.5-5.1); Sodium 136 mmol/L (137-145); Total Bilirubin 0.7 mg/dL (0.2-1.3); Total Protein 5.9 g/dL (6.3-8.2)
[2023-09-10 00:45] LABS: NT-Pro-B-Type Natriuretic Pept 6740 pg/mL
[2023-09-10 00:55] LABS: INR 0.9 (<1.2); Partial Thromboplastin Time 25.2 sec (22.0-30.0); Prothrombin Time 10.5 sec (10.0-12.5)
--- NOTE | 2023-09-10 01:00 | CT ---
EXAM: CT Head Without Intravenous Contrast CLINICAL HISTORY: ITS.REASON CT Reason: fall TECHNIQUE: Axial computed tomography images of the head/brain without intravenous contrast. CTDI is 45.3 mGy and DLP is 1071 mGy-cm. This CT exam was performed using one or more of the following dose reduction techniques: automated exposure control, adjustment of the mA and/or kV according to patient size, and/or use of iterative reconstruction technique. COMPARISON: No relevant prior studies available. FINDINGS: Brain: No hemorrhage or mass effect. Ventricles: No hydrocephalus. Bones/joints: Unremarkable. Soft tissues: Unremarkable. Sinuses: No air fluid level. Mastoid air cells: Clear. IMPRESSION: No acute hemorrhage, hydrocephalus, or mass effect. EXAM: CT Cervical Spine Without Intravenous Contrast CLINICAL HISTORY: ITS.REASON CT Reason: fall TECHNIQUE: Axial computed tomography images of the cervical spine without intravenous contrast. CTDI is 19.4 mGy and DLP is 528.9 mGy-cm. This CT exam was performed using one or more of the following dose reduction techniques: automated exposure control, adjustment of the mA and/or kV according to patient size, and/or use of iterative reconstruction technique. COMPARISON: No relevant prior studies available. FINDINGS: Vertebrae: No acute fracture. Discs/spinal canal/neural foramina: degenerative changes. Soft tissues: No prevertebral swelling. IMPRESSION: No acute fracture or subluxation.
--- NOTE | 2023-09-10 01:00 | XR ---
EXAM: XR Chest, 1 View CLINICAL HISTORY: ITS.REASON XR Reason: Weakness TECHNIQUE: Frontal view of the chest. COMPARISON: No relevant prior studies available. FINDINGS: Lungs: No consolidation or mass. Bibasilar opacities. Pleural space: No acute findings Heart: cardiomegaly. Bones/joints: No acute findings. IMPRESSION: Bibasilar opacities.
[2023-09-10 01:13] LABS: Appearance,Urine Clear (Clear); Bacteria,Urine Rare /hpf; Bilirubin,Urine Negative (Negative); Blood,Urine Large (Negative); Color,Urine Yellow; Glucose,Urine (UA) 3+ (Negative); Hyaline Casts,Urine 7 /lpf (0-2); Ketones,Urine Negative (Negative); Leukocyte Esterase,Urine Moderate (Negative); Nitrite,Urine Negative (Negative); PH, Urine 6.5 (5.0-8.0); Protein,Urine 2+ (Negative); RBC,Urine >182 /hpf (0-5); Specific Gravity,Urine 1.012 (1.001-1.035); Urobilinogen,Urine <2.0 mg/dL (<2.0); WBC,Urine 24 /hpf (0-5)
--- NOTE | 2023-09-10 01:57 | ED ---
General Adult HPI - General Chief complaint: Fall Stated complaint: Weakness, Fall Time Seen by Provider: 09/10/23 00:02 Source: patient, family, EMS, RN notes reviewed, old records reviewed Mode of arrival: EMS Limitations: no limitations - History of Present Illness Initial comments: 83-year-old male presenting for evaluation of fall. Patient's had contacted paramedics after a minor fall at home for lift assist and it was felt that the patient should be evaluated in the emergency department. The patient himself denies injury from the fall. He states he does have some minor neck pain. No significant head trauma. Patient had recent admission for congestive heart failure and had multiple medication changes. He does have an indwelling F oley catheter. No vomiting. No fever. No chest pain. - Related Data Home Medications Medication Instructions Recorded Confirmed allopurinoL [Zyloprim] 300 mg PO DAILY 07/22/16 08/31/23 Aspirin EC [Ecotrin Low Dose] 81 mg PO DAILY 09/20/18 08/31/23 HYDROcodone/APAP 7.5-325MG [[place] 1 tab PO BID 07/10/19 08/31/23 7.5-325] Magnesium Oxide [Magox 400] 400 mg PO HS 08/17/19 08/31/23 Turmeric Root Extract [Turmeric] 500 mg PO BID 08/17/19 08/31/23 Vitamin B Complex 1 cap PO DAILY 08/29/19 08/31/23 Ezetimibe [Zetia] 10 mg PO HS 10/24/21 08/31/23 Albuterol Inhaler [Ventolin Hfa 2 puff INHALATION RT-Q6H PRN 11/28/22 08/31/23 Inhaler] Atorvastatin [Lipitor] 80 mg PO HS 11/28/22 08/31/23 Levothyroxine Sodium [Synthroid] 88 mcg PO DAILY 11/28/22 08/31/23 Tamsulosin [Flomax] 0.4 mg PO BID 11/28/22 08/31/23 Cholecalciferol (Vitamin D3) 75 mcg PO HS 05/19/23 08/31/23 [Vitamin D3 (3000 Iu)] Colchicine [Colcrys] 0.6 mg PO DAILY PRN 05/19/23 08/31/23 sitaGLIPtin [Januvia] 50 mg PO DAILY 05/19/23 08/31/23 Albuterol Nebulized [Ventolin 2.5 mg INHALATION RT-Q6H PRN 08/31/23 08/31/23 Nebulized] Empagliflozin [Jardiance] 10 mg PO DIRECTED 08/31/23 08/31/23 Melatonin 5 mg PO HS PRN 08/31/23 08/31/23 Previous Rx's Medication Instructions Recorded Isosorbide Mononitrate ER [Imdur] 60 mg PO DAILY #30 tab 08/19/19 Nitroglycerin Sl Tabs [Nitrostat] 0.4 mg SUBLINGUAL Q5M PRN #25 tab 09/02/19 Metoprolol Tartrate [Lopressor] 100 mg PO BID 30 Days #120 tab 05/20/23 Acetaminophen Tab [Tylenol] 650 mg PO Q6HR PRN tab 09/06/23 Famotidine [Pepcid] 20 mg PO DAILY #30 tab 09/06/23 Nystatin 100,000 Unit/gm Powd 1 applic TOPICAL BID #1 each 09/06/23 [Mycostatin Powder] Ranolazine [Ranexa] 500 mg PO Q12HR #30 tab 09/06/23 Torsemide [Demadex] 20 mg PO DAILY #30 tab 09/06/23 polyethylene glycoL 3350 [Miralax] 17 gm PO DAILY packet 09/06/23 Allergies Allergy/AdvReac Type Severity Reaction Status Date / Time No Known Allergies Allergy Verified 08/31/23 16:04 Review of Systems ROS Statement: Those systems with pertinent positive or pertinent negative responses have been documented in the HPI. ROS Other: All systems not noted in ROS Statement are negative. 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 Last Myocardial Infarction Date:: 08/18/19 History of Any Multi-Drug Resistant Organisms: MRSA Date of last positivie culture/infection: 07/22/16 MDRO Source:: LOWER LEGS Past Surgical History: Cholecystectomy, Coronary Bypass/CABG, Heart Catheterization, Joint Replacement Additional Past Surgical History / Comment(s): PICC line insertion/removed, bilateral caract removals, COLONOSCOPY, EGD, CANCEROUS SKIN LESIONS REMOVED, TOTAL RIGHT KNEE REPLACEMENT, 06-04-16 QUAD BYPASS Past Anesthesia/Blood Transfusion Reactions: Previous Problems w/ Anesthesia Additional Past Anesthesia/Blood Transfusion Reaction / Comment(s): HAD A HARD TIME COMING OUT OF ANESTHESIA AFTER CHOLECYSTECTOMY Past Psychological History: No Psychological Hx Reported Smoking Status: Former smoker Past Alcohol Use History: None Reported Past Drug Use History: None Reported - Past Family History Father Family Medical History: Vascular Disorder Additional Family Medical History / Comment(s): POOR CIRCULATION-HAD AMPUTATIONS D/T POOR CIRCULATION Mother Family Medical History: Cancer Additional Family Medical History / Comment(s): STOMACH CANCER General Exam General appearance: alert, in no apparent distress Head exam: Present: atraumatic, normocephalic Eye exam: Present: normal appearance, PERRL ENT exam: Present: normal exam Neck exam: Present: normal inspection. Absent: tenderness, meningismus Respiratory exam: Present: normal lung sounds bilaterally. Absent: respiratory distress, wheezes Cardiovascular Exam: Present: regular rate, normal rhythm GI/Abdominal exam: Present: soft. Absent: distended, tenderness Extremities exam: Present: pedal edema Neurological exam: Present: alert, oriented X3, CN II-XII intact. Absent: motor sensory deficit Psychiatric exam: Present: normal affect, normal mood Skin exam: Present: warm, dry, intact Course Vital Signs 09/10/23 09/10/23 09/10/23 00:02 00:41 01:30 Temperature 97.8 F Pulse Rate 70 40 L 73 Respiratory 17 17 19 Rate Blood Pressure 151/53 156/62 174/73 O2 Sat by Pulse 92 L 93 L 90 L Oximetry Medical Decision Making - Medical Decision Making Was pt. sent in by a medical professional or institution (, PA, CREW BOAT OPERATOR, urgent care, hospital, or [facility]...) When possible be specific @ -Paramedics Did you speak to anyone other than the patient for history (EMS, parent, family, police, friend...)? What history was obtained from this source @ -[Patient's Did you review nursing and triage notes (agree or disagree)? Why? @ -[I reviewed and agree with nursing and triage notes] Were old charts reviewed (outside hosp., previous admission, EMS record, old EKG, old radiological studies, urgent care reports/EKG's, [facility] records)? Report findings @ -[No old charts were reviewed] Differential Diagnosis (chest pain, altered mental status, abdominal pain women, abdominal pain men, vaginal bleeding, weakness, fever, dyspnea, syncope, headache, dizziness, GI bleed, back pain, seizure, CVA, palpatations, mental health, musculoskeletal)? @ -Differential Weakness: Hypoglycemia, shock, sepsis, hyponatremia, anemia, infection, [place], ETOH, adverse medicine reaction, overdose, stroke, this is not meant to be an all-inclusive list. EKG interpreted by me (3pts min.). @ -[Sinus rhythm with frequent PVC rate of 73, normal [place] interval, QRS duration 102, QTc 390, no ST segment elevation. X-rays interpreted by me (1pt min.). @Chest x-ray clear, no focal pneumonia, no lanie CHF CT interpreted by me (1pt min.). @ -[CT brain negative for intracranial hemorrhage, CT cervical spine negative for fracture or subluxation U/S interpreted by me (1pt. min.). @ -[None done] What testing was considered but not performed or refused? (CT, X-rays, U/S, labs)? Why? @ -[None] What meds were considered but not given or refused? Why? @ -[None] Did you discuss the management of the patient with other professionals (professionals i.e. , PA, CREW BOAT OPERATOR, lab, RT, psych nurse, social service director, family resource coordinator, teacher, parole or probation officer, clinical case manager)? Give summary @ -[No] Was smoking cessation discussed for >3mins.? @ -[No] Was critical care preformed (if so, how long)? @ -[No] Were there social determinants of health that impacted care today? How? (Homelessness, low income, unemployed, alcoholism, drug addiction, transportation, low edu. Level, literacy, decrease access to med. care, [facility]ci, rehab)? @ -[No] Was there de-escalation of care discussed even if they declined (Discuss DNR or withdrawal of care, Hospice)? DNR status @ -[No] What co-morbidities impacted this encounter? (DM, HTN, Smoking, COPD, CAD, Cancer, CVA, ARF, Chemo, Hep., AIDS, mental health diagnosis, sleep apnea, morbid obesity)? @ -CHF, urinary retention Was patient admitted / discharged? Hospital course, mention meds given and route, prescriptions, significant lab abnormalities, going to OR and other pertinent info. @ -83-year-old male who presents for evaluation after minor fall with weakness. No injury according to patient, paramedics were my assessment. I did repeat laboratory testing on this patient with recent hospital admission. He has a stable hemoglobin at 12. His creatinine is 1.54 which is also stable for this patient. Troponin is negative. Patient offered observation, patient feels well and would prefer discharge at this time. is agreeable. Undiagnosed new problem with uncertain prognosis? @ -[No] Drug Therapy requiring intensive monitoring for toxicity (Heparin, Nitro, Insulin, Cardizem)? @ -[No] Were any procedures done? @ -[No] Diagnosis/symptom? @ -[Fall, weakness Acute, or Chronic, or Acute on Chronic? @ -[Acute Uncomplicated (without systemic symptoms) or Complicated (systemic symptoms)? @ -[default] Side effects of treatment? @ -[No] Exacerbation, Progression, or Severe Exacerbation? @ -[No] Poses a threat to life or bodily function? How? (Chest pain, [place], [place], pneumonia, PE, COPD, DKA, ARF, appy, cholecystitis, CVA, Diverticulitis, Homicidal, Suicidal, threat to staff... and all critical care pts) @ -[Low risk at this time - Lab Data Result diagrams: 09/10/23 00:00 09/10/23 00:00 Lab Results 09/10/23 09/10/23 09/10/23 Range/Units 00:00 00:00 00:00 WBC 11.2 H (3.8-10.6) k/uL RBC 3.52 L (4.30-5.90) m/uL Hgb 12.0 L (13.0-17.5) gm/dL Hct 35.7 L (39.0-53.0) % MCV 101.4 H (80.0-100.0) fL MCH 34.0 (25.0-35.0) pg MCHC 33.5 (31.0-37.0) g/dL RDW 14.6 (11.5-15.5) % Plt Count 244 (150-450) k/uL MPV 8.2 Neutrophils % 73 % Lymphocytes % 13 % Monocytes % 7 % Eosinophils % 4 % Basophils % 1 % Neutrophils # 8.2 H (1.3-7.7) k/uL Lymphocytes # 1.5 (1.0-4.8) k/uL Monocytes # 0.8 (0-1.0) k/uL Eosinophils # 0.5 (0-0.7) k/uL Basophils # 0.1 (0-0.2) k/uL Macrocytosis Slight PT 10.5 (10.0-12.5) sec INR 0.9 (<1.2) APTT 25.2 (22.0-30.0) sec Sodium 136 L (137-145) mmol/L Potassium 4.2 (3.5-5.1) mmol/L Chloride 102 (98-107) mmol/L Carbon Dioxide 27 (22-30) mmol/L Anion Gap 7 mmol/L BUN 40 H (9-20) mg/dL Creatinine 1.54 H (0.66-1.25) mg/dL Est GFR (CKD-EPI)AfAm 48 (>60 ml/min/1.73 sqM) Est GFR (CKD-EPI)NonAf 42 (>60 ml/min/1.73 sqM) Glucose 112 H (74-99) mg/dL Calcium 9.0 (8.4-10.2) mg/dL Magnesium 2.5 H (1.6-2.3) mg/dL Total Bilirubin 0.7 (0.2-1.3) mg/dL AST 24 (17-59) U/L ALT 16 (4-49) U/L Alkaline Phosphatase 90 (38-126) U/L Troponin I (0.000-0.034) ng/mL NT-Pro-B Natriuret Pep 6740 pg/mL Total Protein 5.9 L (6.3-8.2) g/dL Albumin 3.6 (3.5-5.0) g/dL Urine Color Urine Appearance (Clear) Urine pH (5.0-8.0) Ur Specific [place] (1.001-1.035) Urine Protein (Negative) Urine Glucose (UA) (Negative) Urine Ketones (Negative) Urine Blood (Negative) Urine Nitrite (Negative) Urine Bilirubin (Negative) Urine Urobilinogen (<2.0) mg/dL Ur Leukocyte Esterase (Negative) Urine RBC (0-5) /hpf Urine WBC (0-5) /hpf Urine Bacteria (None) /hpf Hyaline Casts (0-2) /lpf 09/10/23 09/10/23 Range/Units 00:00 00:20 WBC (3.8-10.6) k/uL RBC (4.30-5.90) m/uL Hgb (13.0-17.5) gm/dL Hct (39.0-53.0) % MCV (80.0-100.0) fL MCH (25.0-35.0) pg MCHC (31.0-37.0) g/dL RDW (11.5-15.5) % Plt Count (150-450) k/uL MPV Neutrophils % % Lymphocytes % % Monocytes % % Eosinophils % % Basophils % % Neutrophils # (1.3-7.7) k/uL Lymphocytes # (1.0-4.8) k/uL Monocytes # (0-1.0) k/uL Eosinophils # (0-0.7) k/uL Basophils # (0-0.2) k/uL Macrocytosis PT (10.0-12.5) sec INR (<1.2) APTT (22.0-30.0) sec Sodium (137-145) mmol/L Potassium (3.5-5.1) mmol/L Chloride (98-107) mmol/L Carbon Dioxide (22-30) mmol/L Anion Gap mmol/L BUN (9-20) mg/dL Creatinine (0.66-1.25) mg/dL Est GFR (CKD-EPI)AfAm (>60 ml/min/1.73 sqM) Est GFR (CKD-EPI)NonAf (>60 ml/min/1.73 sqM) Glucose (74-99) mg/dL Calcium (8.4-10.2) mg/dL Magnesium (1.6-2.3) mg/dL Total Bilirubin (0.2-1.3) mg/dL AST (17-59) U/L ALT (4-49) U/L Alkaline Phosphatase (38-126) U/L Troponin I <0.012 (0.000-0.034) ng/mL NT-Pro-B Natriuret Pep pg/mL Total Protein (6.3-8.2) g/dL Albumin (3.5-5.0) g/dL Urine Color Yellow Urine Appearance Clear (Clear) Urine pH 6.5 (5.0-8.0) Ur Specific [place] 1.012 (1.001-1.035) Urine Protein 2+ H (Negative) Urine Glucose (UA) 3+ H (Negative) Urine Ketones Negative (Negative) Urine Blood Large H (Negative) Urine Nitrite Negative (Negative) Urine Bilirubin Negative (Negative) Urine Urobilinogen <2.0 (<2.0) mg/dL Ur Leukocyte Esterase Moderate H (Negative) Urine RBC >182 H (0-5) /hpf Urine WBC 24 H (0-5) /hpf Urine Bacteria Rare H (None) /hpf Hyaline Casts 7 H (0-2) /lpf Disposition Clinical Impression: Fall, PVC (premature ventricular contraction) Disposition: HOME SELF-CARE Condition: Fair Instructions (If sedation given, give patient instructions): Fall Prevention for Older Adults (ED) Is patient prescribed a controlled substance at d/c from ED?: No Referrals: Crow Caceres DO [Primary Care Provider] - 1-2 days Time of Disposition: 01:57
[2023-09-10 02:44] VITALS: BP 166/69; PULSE 67; RESP 18
== END 2023-09-10 02:51 | disposition home or self-care (01) ==
LOC: EC 23:59
DX: I49.3 Ventricular premature depolarization (principal); Z04.3 Encounter for examination and observation following other accident; E11.9 Type 2 diabetes mellitus without complications; E78.5 Hyperlipidemia, unspecified; I25.2 Old myocardial infarction; I11.0 Hypertensive heart disease with heart failure; I50.9 Heart failure, unspecified; Z79.84 Long term (current) use of oral hypoglycemic drugs; Z87.891 Personal history of nicotine dependence; Z79.82 Long term (current) use of aspirin; Z79.899 Other long term (current) drug therapy; Z95.1 Presence of aortocoronary bypass graft
CPT/HCPCS: 36415; 70450; 71045; 72125; 80053; 81001; 83735; 83880; 84484; 85025; 85610; 85730; 93005; 99285

== ENCOUNTER 2023-09-10 12:47 | Emergency (ER) | payer MEDICARE ==
[2023-09-10 13:14] VITALS: TEMP 98.3
[2023-09-10 13:34] LABS: Basophils # (A) 0.1 k/uL (0-0.2); Basophils % (A) 1 %; Eosinophils # (A) 0.3 k/uL (0-0.7); Eosinophils % (A) 3 %; HCT 34.3 % (39.0-53.0); HGB 11.3 gm/dL (13.0-17.5); Lymphocytes # (A) 1.5 k/uL (1.0-4.8); Lymphocytes % (A) 15 %; MCH 33.6 pg (25.0-35.0); MCHC 32.9 g/dL (31.0-37.0); MCV 102.2 fL (80.0-100.0); Macrocytosis Slight; Mean Platelet Volume 8.1; Monocytes # (A) 0.6 k/uL (0-1.0); Monocytes % (A) 7 %; Neutrophils # (A) 6.9 k/uL (1.3-7.7); Neutrophils % (A) 72 %; Platelet Count 248 k/uL (150-450); RBC 3.35 m/uL (4.30-5.90); RDW 14.6 % (11.5-15.5); WBC 9.6 k/uL (3.8-10.6)
[2023-09-10 13:41] LABS: Appearance,Urine Clear (Clear); Bacteria,Urine Rare /hpf; Bilirubin,Urine Negative (Negative); Blood,Urine Moderate (Negative); Color,Urine Light Yellow; Glucose,Urine (UA) 3+ (Negative); Hyaline Casts,Urine 1 /lpf (0-2); Ketones,Urine Negative (Negative); Leukocyte Esterase,Urine Small (Negative); Mucus,Urine Rare /hpf; Nitrite,Urine Negative (Negative); PH, Urine 6.5 (5.0-8.0); Protein,Urine 1+ (Negative); RBC,Urine 79 /hpf (0-5); Specific Gravity,Urine 1.011 (1.001-1.035); Urobilinogen,Urine <2.0 mg/dL (<2.0); WBC,Urine 20 /hpf (0-5)
[2023-09-10 13:46] LABS: Partial Thromboplastin Time 23.6 sec (22.0-30.0); Prothrombin Time 10.8 sec (10.0-12.5)
[2023-09-10 13:52] LABS: ALT 17 U/L (4-49); AST 24 U/L (17-59); African American GFR (CKD) 54 (>60 ml/min/1.73 sqM); Albumin 3.6 g/dL (3.5-5.0); Alkaline Phosphatase 100 U/L (38-126); Anion Gap 8 mmol/L; Blood Urea Nitrogen 35 mg/dL (9-20); Calcium 8.7 mg/dL (8.4-10.2); Carbon Dioxide 27 mmol/L (22-30); Chloride 101 mmol/L (98-107); Glucose 112 mg/dL (74-99); Magnesium 2.5 mg/dL (1.6-2.3); Non-African American GFR(CKD) 47 (>60 ml/min/1.73 sqM); Potassium 3.9 mmol/L (3.5-5.1); Sodium 136 mmol/L (137-145); Total Bilirubin 0.7 mg/dL (0.2-1.3)
[2023-09-10 13:57] LABS: NT-Pro-B-Type Natriuretic Pept 7020 pg/mL
--- NOTE | 2023-09-10 14:30 | ED ---
Weakness HPI - General Chief complaint: Weakness Stated complaint: Cardiac, PVC Time Seen by Provider: 09/10/23 12:52 Source: patient, EMS, RN notes reviewed, old records reviewed Mode of arrival: EMS Limitations: no limitations - History of Present Illness Initial comments: This is a 83-year-old male to the ER for evaluation today. Patient presents to day for evaluation of severe weakness but sent in for low heart rate evaluation. Patient was in the ER yesterday after a fall and was feeling basically the same may be a little bit worse today. Patient does have recent inpatient hospitalization about 10 days ago MD Complaint: generalized weakness, lack of energy -: week(s) Location: generalized Severity: moderate Severity scale (1-10): 6 Consistency: constant Improves with: none Worsens with: none Context: recent illness, history of similar Associated Symptoms: confusion - Related Data Home Medications Medication Instructions Recorded Confirmed allopurinoL [Zyloprim] 300 mg PO DAILY 07/22/16 09/10/23 Aspirin EC [Ecotrin Low Dose] 81 mg PO DAILY 09/20/18 09/10/23 HYDROcodone/APAP 7.5-325MG [Miller 1 tab PO BID 07/10/19 09/10/23 7.5-325] Magnesium Oxide [Magox 400] 400 mg PO HS 08/17/19 09/10/23 Turmeric Root Extract [Turmeric] 500 mg PO BID 08/17/19 09/10/23 Vitamin B Complex 1 cap PO DAILY 08/29/19 09/10/23 Ezetimibe [Zetia] 10 mg PO HS 10/24/21 09/10/23 Albuterol Inhaler [Ventolin Hfa 2 puff INHALATION RT-Q6H PRN 11/28/22 09/10/23 Inhaler] Atorvastatin [Lipitor] 80 mg PO HS 11/28/22 09/10/23 Levothyroxine Sodium [Synthroid] 88 mcg PO DAILY 11/28/22 09/10/23 Tamsulosin [Flomax] 0.4 mg PO BID 11/28/22 09/10/23 Cholecalciferol (Vitamin D3) 75 mcg PO HS 05/19/23 09/10/23 [Vitamin D3 (3000 Iu)] Colchicine [Colcrys] 0.6 mg PO DAILY PRN 05/19/23 09/10/23 sitaGLIPtin [Januvia] 50 mg PO DAILY 05/19/23 09/10/23 Albuterol Nebulized [Ventolin 2.5 mg INHALATION RT-Q6H PRN 08/31/23 09/10/23 Nebulized] Empagliflozin [Jardiance] 10 mg PO DAILY 08/31/23 09/10/23 Melatonin 5 mg PO HS PRN 08/31/23 09/10/23 Nitroglycerin Sl Tabs [Nitrostat] 0.4 mg SL Q5M PRN 09/10/23 09/10/23 Ranolazine [Ranexa] 500 mg PO DIRECTED 09/10/23 09/10/23 Previous Rx's Medication Instructions Recorded Isosorbide Mononitrate ER [Imdur] 60 mg PO DAILY #30 tab 08/19/19 Metoprolol Tartrate [Lopressor] 100 mg PO BID 30 Days #120 tab 05/20/23 Acetaminophen Tab [Tylenol] 650 mg PO Q6HR PRN tab 09/06/23 Nystatin 100,000 Unit/gm Powd 1 applic TOPICAL BID #1 each 09/06/23 [Mycostatin Powder] Torsemide [Demadex] 20 mg PO DAILY #30 tab 09/06/23 polyethylene glycoL 3350 [Miralax] 17 gm PO DAILY packet 09/06/23 Allergies Allergy/AdvReac Type Severity Reaction Status Date / Time No Known Allergies Allergy Verified 09/10/23 15:17 Review of Systems ROS Statement: Those systems with pertinent positive or pertinent negative responses have been documented in the HPI. ROS Other: All systems not noted in ROS Statement are negative. 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 Last Myocardial Infarction Date:: 08/18/19 History of Any Multi-Drug Resistant Organisms: MRSA Date of last positivie culture/infection: 07/22/16 MDRO Source:: LOWER LEGS Past Surgical History: Cholecystectomy, Coronary Bypass/CABG, Heart Catheterization, Joint Replacement Additional Past Surgical History / Comment(s): PICC line insertion/removed, bilateral caract removals, COLONOSCOPY, EGD, CANCEROUS SKIN LESIONS REMOVED, TOTAL RIGHT KNEE REPLACEMENT, 06-04-16 QUAD BYPASS Past Anesthesia/Blood Transfusion Reactions: Previous Problems w/ Anesthesia Additional Past Anesthesia/Blood Transfusion Reaction / Comment(s): HAD A HARD TIME COMING OUT OF ANESTHESIA AFTER CHOLECYSTECTOMY Past Psychological History: No Psychological Hx Reported Smoking Status: Former smoker Past Alcohol Use History: None Reported Past Drug Use History: None Reported - Past Family History Father Family Medical History: Vascular Disorder Additional Family Medical History / Comment(s): POOR CIRCULATION-HAD AMPUTATIONS D/T POOR CIRCULATION Mother Family Medical History: Cancer Additional Family Medical History / Comment(s): STOMACH CANCER General Exam Limitations: no limitations General appearance: alert, in no apparent distress, lethargic Head exam: Present: atraumatic, normocephalic, normal inspection Eye exam: Present: normal appearance, PERRL, EOMI. Absent: scleral icterus, conjunctival injection, periorbital swelling ENT exam: Present: normal exam, mucous membranes moist Neck exam: Present: normal inspection. Absent: tenderness, meningismus, lymphadenopathy Respiratory exam: Present: normal lung sounds bilaterally. Absent: respiratory distress, wheezes, rales, rhonchi, stridor Cardiovascular Exam: Present: normal rhythm, bradycardia, normal heart sounds. Absent: systolic murmur, diastolic murmur, rubs, gallop, clicks GI/Abdominal exam: Present: soft, normal bowel sounds. Absent: distended, tenderness, guarding, rebound, rigid Extremities exam: Present: normal inspection, full ROM, normal capillary refill. Absent: tenderness, pedal edema, joint swelling, calf tenderness Back exam: Present: normal inspection Neurological exam: Present: alert, oriented X3, CN II-XII intact Psychiatric exam: Present: normal affect, normal mood Skin exam: Present: warm, dry, intact, normal color. Absent: rash Course Vital Signs 09/10/23 09/10/23 09/10/23 12:52 15:42 16:25 Temperature 98.3 F Pulse Rate 77 64 79 Respiratory 16 18 18 Rate Blood Pressure 145/80 190/80 187/73 O2 Sat by Pulse 96 94 L 97 Oximetry - Reevaluation(s) Reevaluation #1: 09/10/23 14:30 Medical records reviewed Reevaluation #2: Symptoms are improved Reevaluation #3: Patient informed of results and questions answered Reevaluation #4: Was pt. sent in by a medical professional or institution (, PA, VARNISH FILTERER, urgent care, hospital, or group home...) When possible be specific @ -no Did you speak to anyone other than the patient for history (EMS, parent, family, police, friend...)? What history was obtained from this source @ -no Did you review nursing and triage notes (agree or disagree)? Why? @ -agree Are old charts reviewed (outside hosp., previous admission, EMS record, old EKG, old radiological studies, urgent care reports/EKG's, group home records)? Report findings @ -yes Differential Diagnosis (chest pain, altered mental status, abdominal pain women, abdominal pain men, vaginal bleeding, weakness, fever, dyspnea, syncope, headache, dizziness, GI bleed, back pain, seizure, CVA, palpatations, mental health, musculoskeletal)? @ -prior EKG interpreted by me (3pts min.). @ -yes X-rays interpreted by me (1pt min.). @ -yes negative for acute disease CT interpreted by me (1pt min.). @ -no U/S interpreted by me (1pt. min.). @ -no What testing was considered but not performed or refused? (CT, X-rays, U/S, labs)? Why? @ -none What meds were considered but not given or refused? Why? @ -none Did you discuss the management of the patient with other professionals (professionals i.e. , [facility], VARNISH FILTERER, lab, RT, psych nurse, director social, microbiology manager, teacher, first officer, cyanide case hardener)? Give summary @ -no Was smoking cessation discussed for >3mins.? @ -no Was critical care preformed (if so, how long)? @ -no Were there social determinants of health that impacted care today? How? (Homelessness, low income, unemployed, alcoholism, drug addiction, transportat ion, low edu. Level, literacy, decrease access to med. care, prison, rehab)? @ -none Was there de-escalation of care discussed even if they declined (Discuss DNR or withdrawal of care, Hospice)? DNR status @ -no What co-morbidities impacted this encounter? (DM, HTN, Smoking, COPD, CAD, Cancer, CVA, ARF, Chemo, Hep., AIDS, mental health diagnosis, sleep apnea, morbid obesity)? @ -none Was patient admitted / discharged? Hospital course, mention meds given and route, prescriptions, significant lab abnormalities, going to OR and other pertinent info. @ - 83 male to ER for evaluation of severe and significant weakness. Patient is here for severe generalized weakness, severely low heart rate at home and patient presents for bradycardia. Patient w prefers discharge and outpatient cardiology evaluation and treatment Discharge Undiagnosed new problem with uncertain prognosis? @ -no Drug Therapy requiring intensive monitoring for toxicity (Heparin, Nitro, Insulin, Cardizem)? @ -no Were any procedures done? @ -no Diagnosis/symptom? @ -Bradycardia, weakness Acute, or Chronic, or Acute on Chronic? @ -Acute Uncomplicated (without systemic symptoms) or Complicated (systemic symptoms)? @ -Complicated Side effects of treatment? @ -no Exacerbation, Progression, or Severe Exacerbation? @ -exacerbation Poses a threat to life or bodily function? How? (Chest pain, [place], [place], pneumonia, PE, COPD, DKA, ARF, appy, cholecystitis, CVA, Diverticulitis, Homicidal, Suicidal, threat to staff... and all critical care pts) With extremes of age yes Reevaluation #5: Differential Weakness: Hypoglycemia, shock, sepsis, hyponatremia, anemia, infection, [place], ETOH, adverse medicine reaction, overdose, stroke, this is not meant to be an all-inclusive list. EKG Findings - EKG Comments: EKG Findings:: EKG is sinus 73 FL 195 QRS 112 QTc 432 - EKG Results: EKG: interpreted by ERMD Medical Decision Making - Medical Decision Making 83 male to ER for evaluation of severe and significant weakness. Patient is here for severe generalized weakness, severely low heart rate at home and patient presents for bradycardia. Patient will be admitted for cardiology evaluation and treatment - Lab Data Result diagrams: 09/10/23 13:09 09/10/23 13:09 Lab Results 09/10/23 09/10/23 09/10/23 Range/Units 13:09 13:09 13:09 WBC 9.6 (3.8-10.6) k/uL RBC 3.35 L (4.30-5.90) m/uL Hgb 11.3 L (13.0-17.5) gm/dL Hct 34.3 L (39.0-53.0) % MCV 102.2 H (80.0-100.0) fL MCH 33.6 (25.0-35.0) pg MCHC 32.9 (31.0-37.0) g/dL RDW 14.6 (11.5-15.5) % Plt Count 248 (150-450) k/uL MPV 8.1 Neutrophils % 72 % Lymphocytes % 15 % Monocytes % 7 % Eosinophils % 3 % Basophils % 1 % Neutrophils # 6.9 (1.3-7.7) k/uL Lymphocytes # 1.5 (1.0-4.8) k/uL Monocytes # 0.6 (0-1.0) k/uL Eosinophils # 0.3 (0-0.7) k/uL Basophils # 0.1 (0-0.2) k/uL Macrocytosis Slight PT 10.8 (10.0-12.5) sec INR 1.0 (<1.2) APTT 23.6 (22.0-30.0) sec Sodium (137-145) mmol/L Potassium (3.5-5.1) mmol/L Chloride (98-107) mmol/L Carbon Dioxide (22-30) mmol/L Anion Gap mmol/L BUN (9-20) mg/dL Creatinine (0.66-1.25) mg/dL Est GFR (CKD-EPI)AfAm (>60 ml/min/1.73 sqM) Est GFR (CKD-EPI)NonAf (>60 ml/min/1.73 sqM) Glucose (74-99) mg/dL Plasma Lactic Acid Paul (0.7-2.0) mmol/L Calcium (8.4-10.2) mg/dL Phosphorus (2.5-4.5) mg/dL Magnesium (1.6-2.3) mg/dL Total Bilirubin (0.2-1.3) mg/dL AST (17-59) U/L ALT (4-49) U/L Alkaline Phosphatase (38-126) U/L Troponin I (0.000-0.034) ng/mL NT-Pro-B Natriuret Pep pg/mL Total Protein (6.3-8.2) g/dL Albumin (3.5-5.0) g/dL TSH (0.465-4.680) mIU/L Urine Color Light Yellow Urine Appearance Clear (Clear) Urine pH 6.5 (5.0-8.0) Ur Specific [place] 1.011 (1.001-1.035) Urine Protein 1+ H (Negative) Urine Glucose (UA) 3+ H (Negative) Urine Ketones Negative (Negative) Urine Blood Moderate H (Negative) Urine Nitrite Negative (Negative) Urine Bilirubin Negative (Negative) Urine Urobilinogen <2.0 (<2.0) mg/dL Ur Leukocyte Esterase Small H (Negative) Urine RBC 79 H (0-5) /hpf Urine WBC 20 H (0-5) /hpf Urine Bacteria Rare H (None) /hpf Hyaline Casts 1 (0-2) /lpf Urine Mucus Rare H (None) /hpf 09/10/23 09/10/23 09/10/23 Range/Units 13:09 13:09 13:09 WBC (3.8-10.6) k/uL RBC (4.30-5.90) m/uL Hgb (13.0-17.5) gm/dL Hct (39.0-53.0) % MCV (80.0-100.0) fL MCH (25.0-35.0) pg MCHC (31.0-37.0) g/dL RDW (11.5-15.5) % Plt Count (150-450) k/uL MPV Neutrophils % % Lymphocytes % % Monocytes % % Eosinophils % % Basophils % % Neutrophils # (1.3-7.7) k/uL Lymphocytes # (1.0-4.8) k/uL Monocytes # (0-1.0) k/uL Eosinophils # (0-0.7) k/uL Basophils # (0-0.2) k/uL Macrocytosis PT (10.0-12.5) sec INR (<1.2) APTT (22.0-30.0) sec Sodium 136 L (137-145) mmol/L Potassium 3.9 (3.5-5.1) mmol/L Chloride 101 (98-107) mmol/L Carbon Dioxide 27 (22-30) mmol/L Anion Gap 8 mmol/L BUN 35 H (9-20) mg/dL Creatinine 1.40 H (0.66-1.25) mg/dL Est GFR (CKD-EPI)AfAm 54 (>60 ml/min/1.73 sqM) Est GFR (CKD-EPI)NonAf 47 (>60 ml/min/1.73 sqM) Glucose 112 H (74-99) mg/dL Plasma Lactic Acid Paul 1.4 (0.7-2.0) mmol/L Calcium 8.7 (8.4-10.2) mg/dL Phosphorus 4.0 (2.5-4.5) mg/dL Magnesium 2.5 H (1.6-2.3) mg/dL Total Bilirubin 0.7 (0.2-1.3) mg/dL AST 24 (17-59) U/L ALT 17 (4-49) U/L Alkaline Phosphatase 100 (38-126) U/L Troponin I <0.012 (0.000-0.034) ng/mL NT-Pro-B Natriuret Pep 7020 pg/mL Total Protein 6.0 L (6.3-8.2) g/dL Albumin 3.6 (3.5-5.0) g/dL TSH 3.920 (0.465-4.680) mIU/L Urine Color Urine Appearance (Clear) Urine pH (5.0-8.0) Ur Specific [place] (1.001-1.035) Urine Protein (Negative) Urine Glucose (UA) (Negative) Urine Ketones (Negative) Urine Blood (Negative) Urine Nitrite (Negative) Urine Bilirubin (Negative) Urine Urobilinogen (<2.0) mg/dL Ur Leukocyte Esterase (Negative) Urine RBC (0-5) /hpf Urine WBC (0-5) /hpf Urine Bacteria (None) /hpf Hyaline Casts (0-2) /lpf Urine Mucus (None) /hpf - EKG Data -: EKG Interpreted by Ok - Radiology Data Radiology results: report reviewed (Chest x-ray is negative for acute disease), image reviewed Disposition Clinical Impression: Weakness, Bradycardia Disposition: HOME SELF-CARE Condition: Good Instructions (If sedation given, give patient instructions): Bradycardia (ED), Weakness (ED) Is patient prescribed a controlled substance at d/c from ED?: No Referrals: Crow Caceres DO [Primary Care Provider] - 1-2 days Time of Disposition: 15:35
--- NOTE | 2023-09-10 14:43 | XR ---
EXAMINATION TYPE: XR chest 2V DATE OF EXAM: 09/10/2023 2:29 PM CLINICAL INDICATION:Male, 83 years old with history of Weakness; COMPARISON: Chest radiographs from 09/10/2023 TECHNIQUE: XR chest 2V Frontal and lateral views of the chest. FINDINGS: Lungs/Pleura: There is no evidence of pleural effusion, focal consolidation, or pneumothorax. Pulmonary vascularity: Unremarkable. Heart/mediastinum: Cardiomediastinal silhouette is enlarged and stable. Atherosclerotic calcificatio ns are seen in the aorta. Musculoskeletal: No acute osseous pathology. IMPRESSION: Low lung volumes with a generalized hazy appearance which could represent atelectasis versus pulmonar y edema correlate with serum BNP.
[2023-09-10 15:55] VITALS: RESP 18
[2023-09-10 16:26] VITALS: BP 187/73; PULSE 79
== END 2023-09-10 16:26 | disposition home or self-care (01) ==
LOC: EC 12:47
DX: R53.1 Weakness (principal); R00.1 Bradycardia, unspecified; E11.9 Type 2 diabetes mellitus without complications; I10 Essential (primary) hypertension; I25.2 Old myocardial infarction; E78.5 Hyperlipidemia, unspecified; M10.9 Gout, unspecified; Z79.82 Long term (current) use of aspirin; Z79.84 Long term (current) use of oral hypoglycemic drugs; Z79.899 Other long term (current) drug therapy; Z87.891 Personal history of nicotine dependence; Z90.49 Acquired absence of other specified parts of digestive tract; Z95.1 Presence of aortocoronary bypass graft
CPT/HCPCS: 36415; 71046; 80053; 81001; 83605; 83735; 83880; 84100; 84443; 84484; 85025; 85610; 85730; 93005; 99285

== ENCOUNTER 2023-10-15 19:31 | Inpatient (IN) | payer MEDICARE ==
--- NOTE | 2023-10-15 19:51 | ED ---
General Adult HPI - General Source: patient, RN notes reviewed, old records reviewed Mode of arrival: EMS Limitations: no limitations <Steve Rico - Last Filed: 10/15/23 20:51> - General Source: RN notes reviewed, old records reviewed Mode of arrival: EMS Limitations: no limitations <Steve Lux - Last Filed: 10/18/23 19:13> - General Chief complaint: Fall Stated complaint: Fall Time Seen by Provider: 10/15/23 19:35 - History of Present Illness Initial comments: This is an 83-year-old male who states over the last 3 days has been feeling weak. Today he fell over and hit his left elbow. Patient states that initially it hurt but no longer hurts and he has full range of motion. Patient denies hitting his head or neck. Patient denies any chest pain palpitation difficulty breathing shortness of breath. Patient denies abdominal pain. Patient's states he does have blood in the urine. Patient denies any dysuria or knowing that he has hematuria although that his telling him. Patient denies any back pain. Patient [place] any other complaints at this time (Steve Rico) This is an 83-year-old male to the ER today for evaluation of weakness weakness with a syncope versus near syncope event. No significant trauma noted and patient was found to have fever here in the ER (Steve Lux) - Related Data Home Medications Medication Instructions Recorded Confirmed allopurinoL [Zyloprim] 300 mg PO DAILY 07/22/16 10/16/23 Aspirin EC [Ecotrin Low Dose] 81 mg PO DAILY 09/20/18 10/16/23 HYDROcodone/APAP 7.5-325MG [[place] 1 tab PO BID 07/10/19 10/16/23 7.5-325] Magnesium Oxide [Magox 400] 400 mg PO HS 08/17/19 10/16/23 Turmeric Root Extract [Turmeric] 500 mg PO BID 08/17/19 10/16/23 Vitamin B Complex 1 cap PO DAILY 08/29/19 10/16/23 Ezetimibe [Zetia] 10 mg PO HS 10/24/21 10/16/23 Albuterol Inhaler [Ventolin Hfa 2 puff INHALATION RT-Q6H PRN 11/28/22 10/16/23 Inhaler] Atorvastatin [Lipitor] 80 mg PO HS 11/28/22 10/16/23 Levothyroxine Sodium [Synthroid] 88 mcg PO DAILY 11/28/22 10/16/23 Tamsulosin [Flomax] 0.4 mg PO BID 11/28/22 10/16/23 Cholecalciferol (Vitamin D3) 75 mcg PO HS 05/19/23 10/16/23 [Vitamin D3 (3000 Iu)] Colchicine [Colcrys] 0.6 mg PO DAILY PRN 05/19/23 10/16/23 sitaGLIPtin [Januvia] 50 mg PO DAILY 05/19/23 10/16/23 Albuterol Nebulized [Ventolin 2.5 mg INHALATION RT-Q6H PRN 08/31/23 10/16/23 Nebulized] Empagliflozin [Jardiance] 10 mg PO DAILY 08/31/23 10/16/23 Melatonin 5 mg PO HS PRN 08/31/23 10/16/23 Nitroglycerin Sl Tabs [Nitrostat] 0.4 mg SL Q5M PRN 09/10/23 10/16/23 Ranolazine [Ranexa] 500 mg PO BID 09/10/23 10/16/23 Metoprolol Tartrate [Lopressor] 150 mg PO BID 10/16/23 10/16/23 Previous Rx's Medication Instructions Recorded Isosorbide Mononitrate ER [Imdur] 60 mg PO DAILY #30 tab 08/19/19 Acetaminophen Tab [Tylenol] 650 mg PO Q6HR PRN tab 09/06/23 Nystatin 100,000 Unit/gm Powd 1 applic TOPICAL BID #1 each 09/06/23 [Mycostatin Powder] Torsemide [Demadex] 20 mg PO DAILY #30 tab 09/06/23 polyethylene glycoL 3350 [Miralax] 17 gm PO DAILY packet 09/06/23 Allergies Allergy/AdvReac Type Severity Reaction Status Date / Time No Known Allergies Allergy Verified 10/16/23 08:49 Review of Systems ROS Other: All systems not noted in ROS Statement are negative. <Steve Rico - Last Filed: 10/15/23 20:51> ROS Other: All systems not noted in ROS Statement are negative. <Steve Lux - Last Filed: 10/18/23 19:13> ROS Statement: Those systems with pertinent positive or pertinent negative responses have been documented in the HPI. 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 Last Myocardial Infarction Date:: 08/18/19 History of Any Multi-Drug Resistant Organisms: MRSA Date of last positivie culture/infection: 07/22/16 MDRO Source:: LOWER LEGS Past Surgical History: Cholecystectomy, Coronary Bypass/CABG, Heart Catheterization, Joint Replacement Additional Past Surgical History / Comment(s): PICC line insertion/removed, bilateral caract removals, COLONOSCOPY, EGD, CANCEROUS SKIN LESIONS REMOVED, TOTAL RIGHT KNEE REPLACEMENT, 06-04- QUAD BYPASS Past Anesthesia/Blood Transfusion Reactions: Previous Problems w/ Anesthesia Additional Past Anesthesia/Blood Transfusion Reaction / Comment(s): HAD A HARD TIME COMING OUT OF ANESTHESIA AFTER CHOLECYSTECTOMY Past Psychological History: No Psychological Hx Reported Smoking Status: Former smoker Past Alcohol Use History: None Reported Past Drug Use History: None Reported - Past Family History Father Family Medical History: Vascular Disorder Additional Family Medical History / Comment(s): POOR CIRCULATION-HAD AMPUTATIONS D/T POOR CIRCULATION Mother Family Medical History: Cancer Additional Family Medical History / Comment(s): STOMACH CANCER <Steve Rico - Last Filed: 10/15/23 20:51> General Exam Limitations: no limitations <Steve Rico - Last Filed: 10/15/23 20:51> General appearance: alert, in no apparent distress Head exam: Present: atraumatic, normocephalic, normal inspection Eye exam: Present: normal appearance, PERRL, EOMI. Absent: scleral icterus, conjunctival injection, periorbital swelling ENT exam: Present: normal exam, mucous membranes moist Neck exam: Present: normal inspection. Absent: tenderness, meningismus, lymphadenopathy Respiratory exam: Present: normal lung sounds bilaterally. Absent: respiratory distress, wheezes, rales, rhonchi, stridor Cardiovascular Exam: Present: regular rate, normal rhythm, normal heart sounds. Absent: systolic murmur, diastolic murmur, rubs, gallop, clicks GI/Abdominal exam: Present: soft, normal bowel sounds. Absent: distended, tenderness, guarding, rebound, rigid Extremities exam: Present: normal inspection, full ROM, normal capillary refill. Absent: tenderness, pedal edema, joint swelling, calf tenderness Back exam: Present: normal inspection Neurological exam: Present: alert, oriented X3, CN II-XII intact Psychiatric exam: Present: normal affect, normal mood Skin exam: Present: warm, dry, intact, normal color. Absent: rash <Steve Lux - Last Filed: 10/18/23 19:13> - General Exam Comments Initial Comments: GENERAL: Patient is well-developed and well-nourished. Patient is nontoxic and well- hydrated and is in mild distress. ENT: Neck is soft and supple. No significant lymphadenopathy is noted. Oropharynx is clear. Moist mucous membranes. Neck has full range of motion without eliciting any pain. EYES: The sclera were anicteric and conjunctiva were pink and moist. Extraocular movements were intact and pupils were equal round and reactive to light. Eyel ids were unremarkable. PULMONARY: Unlabored respirations. Good breath sounds bilaterally. No audible rales rhonchi or wheezing was noted. CARDIOVASCULAR: There is a regular rate and rhythm without any murmurs gallops or rubs. ABDOMEN: Soft and nontender with normal bowel sounds. SKIN: Skin is clear with no lesions or rashes and otherwise unremarkable. NEUROLOGIC: Patient is alert and oriented x3. Cranial nerves II through XII are grossly intact. Motor and sensory are also intact. Normal speech, volume and content. Symmetrical smile. MUSCULOSKELETAL: Normal extremities with adequate strength and full range of motion. Edema bilaterally LYMPHATICS: No significant lymphadenopathy is noted PSYCHIATRIC: Normal psychiatric evaluation. (Steve Rico) Course <Steve Lux - Last Filed: 10/18/23 19:13> Vital Signs 10/15/23 10/15/23 19:32 23:30 Temperature 101.1 F H Pulse Rate 92 80 Respiratory 20 18 Rate Blood Pressure 183/60 138/52 O2 Sat by Pulse 90 L 96 Oximetry - Reevaluation(s) Reevaluation #1: Medical records reviewed (Steve Lux) Reevaluation #2: Patient symptoms are improving (Steve Lux) Reevaluation #3: Patient informed of results questions answered (Steve Lux) Medical Decision Making - Lab Data Result diagrams: 10/15/23 19:50 10/15/23 19:50 <Steve Rico - Last Filed: 10/15/23 20:51> - Lab Data Result diagrams: 10/18/23 06:25 10/18/23 06:25 - Radiology Data Radiology results: report reviewed (Chest x-ray is negative for acute disease x- ray elbow negative for traumatic injury) <Steve Lux - Last Filed: 10/18/23 19:13> - Medical Decision Making EKG is interpreted by myself read EKG shows a sinus rhythm at 89 bpm AL interval is 279 QRS is 112 QT interval 344 QTc is 391. Patient's EKG shows no ST segment ovation or depression Was pt. sent in by a medical professional or institution (, PA, MEDICAL CLERK, urgent care, hospital, or skilled nursing...) When possible be specific @ -[No] Did you speak to anyone other than the patient for history (EMS, parent, family, police, friend...)? What history was obtained from this source @ -[No] Did you review nursing and triage notes (agree or disagree)? Why? @ -[I reviewed and agree with nursing and triage notes] Were old charts reviewed (outside hosp., previous admission, EMS record, old EKG, old radiological studies, urgent care reports/EKG's, skilled nursing records)? Report findings @ -[No old charts were reviewed] Differential Diagnosis (chest pain, altered mental status, abdominal pain women, abdominal pain men, vaginal bleeding, weakness, fever, dyspnea, syncope, h eadache, dizziness, GI bleed, back pain, seizure, CVA, palpatations, mental health, musculoskeletal)? @ -Differential Seizure: Recurrent seizure disorder, febrile seizure, alcohol withdrawal, stimulants, meningitis, encephalitis, intercranial hemorrhage, intracranial tumor, stroke, eclampsia, thyrotoxicosis, hypocalcemia, hyponatremia, hypernatremia, hypomagnesemia, psychogenic, this is not meant to be an all-inclusive list. EKG interpreted by me (3pts min.). @ -[As above] X-rays interpreted by me (1pt min.). @ -X-ray of the chest shows no acute normality. X-ray of the elbow shows no acute abnormality. CT interpreted by me (1pt min.). @ -[None done] U/S interpreted by me (1pt. min.). @ -[None done] What testing was considered but not performed or refused? (CT, X-rays, U/S, labs)? Why? @ -[None] What meds were considered but not given or refused? Why? @ -[None] Did you discuss the management of the patient with other professionals (professionals i.e. Dr., PA, MEDICAL CLERK, lab, RT, psych nurse, health care social worker, shear grinder operator helper, teacher, fire information officer, field nurse case manager)? Give summary @ -[No] Was smoking cessation discussed for >3mins.? @ -[No] Was critical care preformed (if so, how long)? @ -[No] Were there social determinants of health that impacted care today? How? (Homelessness, low income, unemployed, alcoholism, drug addiction, transportation, low edu. Level, literacy, decrease access to med. care, longterm, rehab)? @ -[No] Was there de-escalation of care discussed even if they declined (Discuss DNR or withdrawal of care, Hospice)? DNR status @ -[No] What co-morbidities impacted this encounter? (DM, HTN, Smoking, COPD, CAD, Cancer, CVA, ARF, Chemo, Hep., AIDS, mental health diagnosis, sleep apnea, morbid obesity)? @ -[None] Was patient admitted / discharged? Hospital course, mention meds given and route, prescriptions, significant lab abnormalities, going to OR and other pertinent info. @ -Patient was given 2 g of Rocephin it was thought that he probably had a urinary tract infection he had a high fever high white count. Dr. Lux will be taking over the care of this patient at 9:00 (Steve Rico) 83-year-old male will be admitted for fever with weakness. Patient does have urinary tract infection, patient placed on IV antibiotics-patient presented for fever weakness and syncope versus near syncope event. (Steve Lux) - Lab Data Lab Results 10/15/23 10/15/23 10/15/23 Range/Units 19:50 19:50 19:50 WBC 18.6 H (3.8-10.6) k/uL RBC 3.84 L (4.30-5.90) m/uL Hgb 12.5 L (13.0-17.5) gm/dL Hct 39.7 (39.0-53.0) % MCV 103.5 H (80.0-100.0) fL MCH 32.7 (25.0-35.0) pg MCHC 31.6 (31.0-37.0) g/dL RDW 14.9 (11.5-15.5) % Plt Count 220 (150-450) k/uL MPV 7.7 Neutrophils % 90 % Lymphocytes % 3 % Monocytes % 4 % Eosinophils % 2 % Basophils % 0 % Neutrophils # 16.8 H (1.3-7.7) k/uL Lymphocytes # 0.6 L (1.0-4.8) k/uL Monocytes # 0.7 (0-1.0) k/uL Eosinophils # 0.3 (0-0.7) k/uL Basophils # 0.1 (0-0.2) k/uL Macrocytosis Slight PT 10.6 (10.0-12.5) sec INR 1.0 (<1.2) APTT 26.1 (22.0-30.0) sec Sodium (137-145) mmol/L Potassium (3.5-5.1) mmol/L Chloride (98-107) mmol/L Carbon Dioxide (22-30) mmol/L Anion Gap mmol/L BUN (9-20) mg/dL Creatinine (0.66-1.25) mg/dL Est GFR (CKD-EPI)AfAm (>60 ml/min/1.73 sqM) Est GFR (CKD-EPI)NonAf (>60 ml/min/1.73 sqM) Glucose (74-99) mg/dL Plasma Lactic Acid Paul (0.7-2.0) mmol/L Calcium (8.4-10.2) mg/dL Magnesium (1.6-2.3) mg/dL Total Bilirubin (0.2-1.3) mg/dL AST (17-59) U/L ALT (4-49) U/L Alkaline Phosphatase (38-126) U/L Troponin I (0.000-0.034) ng/mL Total Protein (6.3-8.2) g/dL Albumin (3.5-5.0) g/dL Urine Color Yellow Urine Appearance Cloudy (Clear) Urine pH 6.0 (5.0-8.0) Ur Specific [place] 1.016 (1.001-1.035) Urine Protein 2+ H (Negative) Urine Glucose (UA) 4+ H (Negative) Urine Ketones Negative (Negative) Urine Blood Small H (Negative) Urine Nitrite Positive (Negative) Urine Bilirubin Negative (Negative) Urine Urobilinogen <2.0 (<2.0) mg/dL Ur Leukocyte Esterase Large H (Negative) Urine RBC 2 (0-5) /hpf Urine WBC >182 H (0-5) /hpf Urine WBC Clumps Many H (None) /hpf Urine Bacteria Many H (None) /hpf Urine Mucus Few H (None) /hpf Influenza Type A (PCR) (Not Detectd) Influenza Type B (PCR) (Not Detectd) RSV (PCR) (Not Detectd) SARS-CoV-2 (PCR) (Not Detectd) 10/15/23 10/15/23 10/15/23 Range/Units 19:50 19:50 19:50 WBC (3.8-10.6) k/uL RBC (4.30-5.90) m/uL Hgb (13.0-17.5) gm/dL Hct (39.0-53.0) % MCV (80.0-100.0) fL MCH (25.0-35.0) pg MCHC (31.0-37.0) g/dL RDW (11.5-15.5) % Plt Count (150-450) k/uL MPV Neutrophils % % Lymphocytes % % Monocytes % % Eosinophils % % Basophils % % Neutrophils # (1.3-7.7) k/uL Lymphocytes # (1.0-4.8) k/uL Monocytes # (0-1.0) k/uL Eosinophils # (0-0.7) k/uL Basophils # (0-0.2) k/uL Macrocytosis PT (10.0-12.5) sec INR (<1.2) APTT (22.0-30.0) sec Sodium 137 (137-145) mmol/L Potassium 3.9 (3.5-5.1) mmol/L Chloride 99 (98-107) mmol/L Carbon Dioxide 25 (22-30) mmol/L Anion Gap 13 mmol/L BUN 41 H (9-20) mg/dL Creatinine 1.60 H (0.66-1.25) mg/dL Est GFR (CKD-EPI)AfAm 46 (>60 ml/min/1.73 sqM) Est GFR (CKD-EPI)NonAf 40 (>60 ml/min/1.73 sqM) Glucose 138 H (74-99) mg/dL Plasma Lactic Acid Paul 1.4 (0.7-2.0) mmol/L Calcium 9.4 (8.4-10.2) mg/dL Magnesium 2.2 (1.6-2.3) mg/dL Total Bilirubin 1.2 (0.2-1.3) mg/dL AST 25 (17-59) U/L ALT 16 (4-49) U/L Alkaline Phosphatase 105 (38-126) U/L Troponin I 0.015 (0.000-0.034) ng/mL Total Protein 6.9 (6.3-8.2) g/dL Albumin 4.2 (3.5-5.0) g/dL Urine Color Urine Appearance (Clear) Urine pH (5.0-8.0) Ur Specific [place] (1.001-1.035) Urine Protein (Negative) Urine Glucose (UA) (Negative) Urine Ketones (Negative) Urine Blood (Negative) Urine Nitrite (Negative) Urine Bilirubin (Negative) Urine Urobilinogen (<2.0) mg/dL Ur Leukocyte Esterase (Negative) Urine RBC (0-5) /hpf Urine WBC (0-5) /hpf Urine WBC Clumps (None) /hpf Urine Bacteria (None) /hpf Urine Mucus (None) /hpf Influenza Type A (PCR) (Not Detectd) Influenza Type B (PCR) (Not Detectd) RSV (PCR) (Not Detectd) SARS-CoV-2 (PCR) (Not Detectd) 10/15/23 Range/Units 19:50 WBC (3.8-10.6) k/uL RBC (4.30-5.90) m/uL Hgb (13.0-17.5) gm/dL Hct (39.0-53.0) % MCV (80.0-100.0) fL MCH (25.0-35.0) pg MCHC (31.0-37.0) g/dL RDW (11.5-15.5) % Plt Count (150-450) k/uL MPV Neutrophils % % Lymphocytes % % Monocytes % % Eosinophils % % Basophils % % Neutrophils # (1.3-7.7) k/uL Lymphocytes # (1.0-4.8) k/uL Monocytes # (0-1.0) k/uL Eosinophils # (0-0.7) k/uL Basophils # (0-0.2) k/uL Macrocytosis PT (10.0-12.5) sec INR (<1.2) APTT (22.0-30.0) sec Sodium (137-145) mmol/L Potassium (3.5-5.1) mmol/L Chloride (98-107) mmol/L Carbon Dioxide (22-30) mmol/L Anion Gap mmol/L BUN (9-20) mg/dL Creatinine (0.66-1.25) mg/dL Est GFR (CKD-EPI)AfAm (>60 ml/min/1.73 sqM) Est GFR (CKD-EPI)NonAf (>60 ml/min/1.73 sqM) Glucose (74-99) mg/dL Plasma Lactic Acid Paul (0.7-2.0) mmol/L Calcium (8.4-10.2) mg/dL Magnesium (1.6-2.3) mg/dL Total Bilirubin (0.2-1.3) mg/dL AST (17-59) U/L ALT (4-49) U/L Alkaline Phosphatase (38-126) U/L Troponin I (0.000-0.034) ng/mL Total Protein (6.3-8.2) g/dL Albumin (3.5-5.0) g/dL Urine Color Urine Appearance (Clear) Urine pH (5.0-8.0) Ur Specific [place] (1.001-1.035) Urine Protein (Negative) Urine Glucose (UA) (Negative) Urine Ketones (Negative) Urine Blood (Negative) Urine Nitrite (Negative) Urine Bilirubin (Negative) Urine Urobilinogen (<2.0) mg/dL Ur Leukocyte Esterase (Negative) Urine RBC (0-5) /hpf Urine WBC (0-5) /hpf Urine WBC Clumps (None) /hpf Urine Bacteria (None) /hpf Urine Mucus (None) /hpf Influenza Type A (PCR) Not Detected (Not Detectd) Influenza Type B (PCR) Not Detected (Not Detectd) RSV (PCR) Not Detected (Not Detectd) SARS-CoV-2 (PCR) Not Detected (Not Detectd) Disposition <Steve Rico - Last Filed: 10/15/23 20:51> Is patient prescribed a controlled substance at d/c from ED?: No Time of Disposition: 22:35 <Steve Lux - Last Filed: 10/18/23 19:13> Clinical Impression: Fall, Pre-syncope, Dyspnea, Fever, UTI (urinary tract infection), Syncope Disposition: ADMITTED IP TO THIS HOSP Condition: Fair
[2023-10-15 20:02] LABS: Basophils # (A) 0.1 k/uL (0-0.2); Basophils % (A) 0 %; Eosinophils # (A) 0.3 k/uL (0-0.7); Eosinophils % (A) 2 %; HCT 39.7 % (39.0-53.0); HGB 12.5 gm/dL (13.0-17.5); Lymphocytes # (A) 0.6 k/uL (1.0-4.8); Lymphocytes % (A) 3 %; MCH 32.7 pg (25.0-35.0); MCHC 31.6 g/dL (31.0-37.0); MCV 103.5 fL (80.0-100.0); Macrocytosis Slight; Mean Platelet Volume 7.7; Monocytes # (A) 0.7 k/uL (0-1.0); Monocytes % (A) 4 %; Neutrophils # (A) 16.8 k/uL (1.3-7.7); Neutrophils % (A) 90 %; Platelet Count 220 k/uL (150-450); RBC 3.84 m/uL (4.30-5.90); RDW 14.9 % (11.5-15.5); WBC 18.6 k/uL (3.8-10.6)
[2023-10-15 20:11] LABS: Partial Thromboplastin Time 26.1 sec (22.0-30.0); Prothrombin Time 10.6 sec (10.0-12.5)
[2023-10-15 20:26] LABS: ALT 16 U/L (4-49); AST 25 U/L (17-59); African American GFR (CKD) 46 (>60 ml/min/1.73 sqM); Albumin 4.2 g/dL (3.5-5.0); Alkaline Phosphatase 105 U/L (38-126); Anion Gap 13 mmol/L; Blood Urea Nitrogen 41 mg/dL (9-20); Calcium 9.4 mg/dL (8.4-10.2); Carbon Dioxide 25 mmol/L (22-30); Chloride 99 mmol/L (98-107); Glucose 138 mg/dL (74-99); Magnesium 2.2 mg/dL (1.6-2.3); Non-African American GFR(CKD) 40 (>60 ml/min/1.73 sqM); Potassium 3.9 mmol/L (3.5-5.1); Sodium 137 mmol/L (137-145); Total Bilirubin 1.2 mg/dL (0.2-1.3); Total Protein 6.9 g/dL (6.3-8.2)
[2023-10-15] MEDS: ACETAMINOPHEN TAB 500 MG TAB PO STA (21:02)
[2023-10-15] MEDS: cefTRIAXone IN SWFI 1,000 MG/10 ML SYRINGE IVP STA ×2 (21:03→21:05)
[2023-10-15] MEDS: IBUPROFEN 600 MG TAB PO STA (21:03)
[2023-10-15 21:12] LABS: Appearance,Urine Cloudy (Clear); Bacteria,Urine Many /hpf; Bilirubin,Urine Negative (Negative); Blood,Urine Small (Negative); Color,Urine Yellow; Glucose,Urine (UA) 4+ (Negative); Ketones,Urine Negative (Negative); Leukocyte Esterase,Urine Large (Negative); Mucus,Urine Few /hpf; Nitrite,Urine Positive (Negative); Protein,Urine 2+ (Negative); RBC,Urine 2 /hpf (0-5); Specific Gravity,Urine 1.016 (1.001-1.035); Urobilinogen,Urine <2.0 mg/dL (<2.0); WBC,Urine >182 /hpf (0-5)
--- NOTE | 2023-10-15 22:02 | XR ---
EXAMINATION TYPE: XR chest 2V DATE OF EXAM: 10/15/2023 8:40 PM CLINICAL INDICATION:Male, 83 years old with history of Weakness; [facility] COMPARISON: 09/10/2023 and older studies TECHNIQUE: XR chest 2V. Frontal and lateral views of the chest.. FINDINGS: Heart is enlarged. Partially calcified, mildly tortuous aorta. There is mild pulmonary vascular congestion and interstitial opacities similar to before suggesting m ild congestion. Lung volumes are somewhat low with bibasilar mild atelectasis. No sizable pleural effusion or pneumothorax is seen. On the right, there is appearance of an ovoid nodular density projected over the mid to lower lung zo ne not clearly seen before. Mild degenerative changes. No acute osseous abnormalities. Multiple sternotomy wires and sternal fixation devices with clips, likely from prior CABG. IMPRESSION: 1. Cardiomegaly with mild congestive changes and low lung volumes. Correlate for CHF. 2. Nodular density on the right, concerning for possible pulmonary nodule. Recommend further evaluat ion with outpatient CT in the near future.
--- NOTE | 2023-10-15 22:05 | XR ---
EXAMINATION TYPE: XR elbow complete LT DATE OF EXAM: 10/15/2023 8:45 PM CLINICAL INDICATION:Male, 83 years old with history of Fall; [facility] COMPARISON: TECHNIQUE: The left elbow was examined in AP, lateral, and oblique projections. FINDINGS: Osseous mineralization is slightly diminished. No evidence of destructive bone lesion or periostitis. No acute fracture or dislocation. There are mild degenerative changes. There is a moderate-sized ent hesopathic spur at the triceps insertion. Moderate arterial vascular calcifications. IV cannula in the antecubital fossa. No unexpected radiopa que foreign body is seen. IMPRESSION: No evidence of acute fracture or dislocation.
[2023-10-15] MEDS ORDERED: NALOXONE 0.4 MG/ML 1 ML VIAL IV PRN (22:33)
[2023-10-15] MEDS ORDERED: ACETAMINOPHEN TAB 325 MG TAB PO PRN (22:33)
[2023-10-16] MEDS: SODIUM CHLORIDE 0.9% 1,000 ML IV SCH (00:58)
[2023-10-16] MEDS ORDERED: SODIUM CHLORIDE 0.9% 1,000 ML IV SCH (06:30)
[2023-10-16] MEDS ORDERED: DEXTROSE 50% SYRINGE 50 ML IVP PRN ×2 (06:30)
[2023-10-16 07:47] LABS: Basophils # (A) 0.1 k/uL (0-0.2); Basophils % (A) 0 %; Eosinophils # (A) 0.3 k/uL (0-0.7); Eosinophils % (A) 2 %; HCT 37.9 % (39.0-53.0); HGB 11.8 gm/dL (13.0-17.5); Lymphocytes # (A) 0.9 k/uL (1.0-4.8); Lymphocytes % (A) 6 %; MCHC 31.3 g/dL (31.0-37.0); MCV 105.5 fL (80.0-100.0); Macrocytosis Moderate; Mean Platelet Volume 8.2; Monocytes % (A) 7 %; Neutrophils # (A) 12.3 k/uL (1.3-7.7); Neutrophils % (A) 84 %; Platelet Count 205 k/uL (150-450); RBC 3.59 m/uL (4.30-5.90); RDW 14.9 % (11.5-15.5); WBC 14.6 k/uL (3.8-10.6)
[2023-10-16 07:59] LABS: ALT 15 U/L (4-49); AST 24 U/L (17-59); African American GFR (CKD) 48 (>60 ml/min/1.73 sqM); Albumin 3.4 g/dL (3.5-5.0); Alkaline Phosphatase 83 U/L (38-126); Anion Gap 10 mmol/L; Blood Urea Nitrogen 43 mg/dL (9-20); Calcium 8.9 mg/dL (8.4-10.2); Carbon Dioxide 23 mmol/L (22-30); Chloride 103 mmol/L (98-107); Glucose 106 mg/dL (74-99); Magnesium 2.3 mg/dL (1.6-2.3); Non-African American GFR(CKD) 42 (>60 ml/min/1.73 sqM); Phosphorus 3.9 mg/dL (2.5-4.5); Potassium 3.6 mmol/L (3.5-5.1); Sodium 136 mmol/L (137-145); Total Bilirubin 0.7 mg/dL (0.2-1.3); Total Protein 5.8 g/dL (6.3-8.2)
[2023-10-16] MEDS: INSULIN ASPART (NovoLOG) 100 UNIT/ML VIAL SQ SCH (08:13)
--- NOTE | 2023-10-16 08:56 | P.HPIM ---
History of Present Illness This is a pleasant 83 years old male with multiple medical problems as below Patient presents because there is a blood in his urine, however he denies dysuria or urgency. No suprapubic or flank pain. No nausea vomiting. Patient denies chest pain or dyspnea. No diarrhea abdominal pain or vomiting No headache dizziness weakness numbness. No fever or chills. Patient denies smoking alcohol or illicit drugs. Bladder scan was checked and was low Patient vitals checked and he is currently hemodynamically stable however he has a fever on admission 101.1. His labs show a leukocytosis with 18.6, hemoglobin 12.6, creatinine is slightly elevated at 1.6 which is close to baseline 1.0-1.6. Liver enzymes not elevated, INR is 1.0. Troponin is -0.15. Urine analysis is highly suspicious of infection Influenza A and type B, RSV, SARS (coronavirus) are and detected Chest x-ray showing cardiomegaly with mild vascular congestion also has right pulmonary nodule which require CAT scan as an outpatient, patient informed with risk of cancer explained for him and he verbalized understanding and acceptance EKG showing normal sinus rhythm at [address]-T changes and QTc 391 Review of Systems Review of systems CONSTITUTIONAL: No fever, no malaise, no fatigue. HEENT: No recent visual problems or hearing problems. Denied any sore throat. CARDIOVASCULAR: No orthopnea, PND, no palpitations, no syncope. PULMONARY: No shortness of breath, no cough, no hemoptysis. GASTROINTESTINAL: No diarrhea, no nausea, no vomiting, no abdominal pain. Normoactive bowel sounds. NEUROLOGICAL: No headaches, no weakness, no numbness. HEMATOLOGICAL: Denies any bleeding or petechiae. GENITOURINARY: Denies any burning micturition, frequency, or urgency. MUSCULOSKELETAL/RHEUMATOLOGICAL: Denies any joint pain, swelling, or any muscle pain. ENDOCRINE: Denies any polyuria or polydipsia. Past Medical History Past Medical History: Cancer, Diabetes Mellitus, Hyperlipidemia, Hypertension, Myocardial Infarction ([place]) Additional Past Medical History / Comment(s): SKIN CANCER , GOUT CHRONIC BACK Pain,SKIN LESIONS , 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 Last Myocardial Infarction Date:: 08/18/19 History of Any Multi-Drug Resistant Organisms: MRSA Date of last positivie culture/infection: 07/22/16 MDRO Source:: LOWER LEGS Past Surgical History: Cholecystectomy, Coronary Bypass/CABG, Heart Catheterization, Joint Replacement Additional Past Surgical History / Comment(s): PICC line insertion/removed, bilateral caract removals, COLONOSCOPY, EGD, CANCEROUS SKIN LESIONS REMOVED, TOTAL RIGHT KNEE REPLACEMENT, 06-04-16 QUAD BYPASS Past Anesthesia/Blood Transfusion Reactions: Previous Problems w/ Anesthesia Additional Past Anesthesia/Blood Transfusion Reaction / Comment(s): HAD A HARD TIME COMING OUT OF ANESTHESIA AFTER CHOLECYSTECTOMY Past Psychological History: No Psychological Hx Reported Additional Psychological History / Comment(s): Was in the [employer] and was in the [employer]. Smoking Status: Former smoker Past Alcohol Use History: None Reported Additional Past Alcohol Use History / Comment(s): Pt quit smoking in 1982, STARTED SMOKING AT AGE 18 SMOKED 1 PPD. Past Drug Use History: None Reported - Past Family History Father Family Medical History: Vascular Disorder Additional Family Medical History / Comment(s): POOR CIRCULATION-HAD AMPUTATIONS D/T POOR CIRCULATION Mother Family Medical History: Cancer Additional Family Medical History / Comment(s): STOMACH CANCER Medications and Allergies Home Medications Medication Instructions Recorded Confirmed Type allopurinoL [Zyloprim] 300 mg PO DAILY 07/22/16 09/10/23 History Aspirin EC [Ecotrin Low Dose] 81 mg PO DAILY 09/20/18 09/10/23 History HYDROcodone/APAP 7.5-325MG [[place] 1 tab PO BID 07/10/19 09/10/23 History 7.5-325] Magnesium Oxide [Magox 400] 400 mg PO HS 08/17/19 09/10/23 History Turmeric Root Extract [Turmeric] 500 mg PO BID 08/17/19 09/10/23 History Isosorbide Mononitrate ER [Imdur] 60 mg PO DAILY #30 tab 08/19/19 09/10/23 Rx Vitamin B Complex 1 cap PO DAILY 08/29/19 09/10/23 History Ezetimibe [Zetia] 10 mg PO HS 10/24/21 09/10/23 History Albuterol Inhaler [Ventolin Hfa 2 puff INHALATION RT-Q6H PRN 11/28/22 09/10/23 History Inhaler] Atorvastatin [Lipitor] 80 mg PO HS 11/28/22 09/10/23 History Levothyroxine Sodium [Synthroid] 88 mcg PO DAILY 11/28/22 09/10/23 History Tamsulosin [Flomax] 0.4 mg PO BID 11/28/22 09/10/23 History Cholecalciferol (Vitamin D3) 75 mcg PO HS 05/19/23 09/10/23 History [Vitamin D3 (3000 Iu)] Colchicine [Colcrys] 0.6 mg PO DAILY PRN 05/19/23 09/10/23 History sitaGLIPtin [Januvia] 50 mg PO DAILY 05/19/23 09/10/23 History Metoprolol Tartrate [Lopressor] 100 mg PO BID 30 Days #120 tab 05/20/23 09/10/23 Rx Albuterol Nebulized [Ventolin 2.5 mg INHALATION RT-Q6H PRN 08/31/23 09/10/23 History Nebulized] Empagliflozin [Jardiance] 10 mg PO DAILY 08/31/23 09/10/23 History Melatonin 5 mg PO HS PRN 08/31/23 09/10/23 History Acetaminophen Tab [Tylenol] 650 mg PO Q6HR PRN tab 09/06/23 09/10/23 Rx Nystatin 100,000 Unit/gm Powd 1 applic TOPICAL BID #1 each 09/06/23 09/10/23 Rx [Mycostatin Powder] Torsemide [Demadex] 20 mg PO DAILY #30 tab 09/06/23 09/10/23 Rx polyethylene glycoL 3350 [Miralax] 17 gm PO DAILY packet 09/06/23 09/10/23 Rx Nitroglycerin Sl Tabs [Nitrostat] 0.4 mg SL Q5M PRN 09/10/23 09/10/23 History Ranolazine [Ranexa] 500 mg PO DIRECTED 09/10/23 09/10/23 History Allergies Allergy/AdvReac Type Severity Reaction Status Date / Time No Known Allergies Allergy Verified 10/16/23 08:49 Physical Exam Vitals: Vital Signs Temp Pulse Pulse Resp BP BP Pulse Ox 10/16/23 01:32 98.4 F 54 L 17 132/68 99 10/15/23 23:30 80 18 138/52 96 10/15/23 19:32 101.1 F H 92 20 183/60 90 L Intake and Output 10/15/23 10/15/23 10/16/23 14:59 22:59 06:59 Output Total 350 Balance -350 Output: Urine 350 Other: Voiding Method Diaper Weight 132.812 kg 132.812 kg -GENERAL: The patient is alert and oriented x3, not in any acute distress. Well developed, well nourished. Obese HEENT: Pupils are round and equally reacting to light. EOMI. No scleral icterus. No conjunctival pallor. Normocephalic, atraumatic. No pharyngeal erythema. No thyromegaly. CARDIOVASCULAR: S1 and S2 present. No murmurs, rubs, or gallops. PULMONARY: Chest is clear to auscultation, no wheezing , no crackles. ABDOMEN: Soft, nontender, nondistended, normoactive bowel sounds. No palpable organomegaly. MUSCULOSKELETAL: No joint swelling or deformity. EXTREMITIES: No cyanosis, clubbing, or pedal edema. NEUROLOGICAL: Gross neurological examination did not reveal any focal deficits. SKIN: No rashes. no petechiae. Results CBC & Chem 7: 10/16/23 07:11 10/16/23 07:11 Labs: Abnormal Lab Results - Last 24 Hours (Table) 10/15/23 10/15/23 10/15/23 Range/Units 19:50 19:50 19:50 WBC 18.6 H (3.8-10.6) k/uL RBC 3.84 L (4.30-5.90) m/uL Hgb 12.5 L (13.0-17.5) gm/dL MCV 103.5 H (80.0-100.0) fL Neutrophils # 16.8 H (1.3-7.7) k/uL Lymphocytes # 0.6 L (1.0-4.8) k/uL BUN 41 H (9-20) mg/dL Creatinine 1.60 H (0.66-1.25) mg/dL Glucose 138 H (74-99) mg/dL Urine Protein 2+ H (Negative) Urine Glucose (UA) 4+ H (Negative) Urine Blood Small H (Negative) Ur Leukocyte Esterase Large H (Negative) Urine WBC >182 H (0-5) /hpf Urine WBC Clumps Many H (None) /hpf Urine Bacteria Many H (None) /hpf Urine Mucus Few H (None) /hpf Assessment and Plan Assessment: Acute urinary tract infection Hematuria secondary to above CKD stage III with possible some elements of mild acute kidney injury Sepsis with fever and leukocytosis Obesity My diabetes mellitus Hypertension Hyperlipidemia History of lymphoma s/p chemotherapy in 2019 Coronary artery disease status post stent and CABG He was started on ceftriaxone and normal saline 30 mL/h Plan: Continue with ceftriaxone Follow-up urine culture Lower normal saline rate to 75 mL/h, monitor for signs of fluid overload Labs and medication were reviewed.. Continue same treatment. Continue with symptomatic treatment. Resume home medication. Monitor lytes and vitals. DVT and GI prophylaxis. Further recommendations depends on the clinical course of the patient DVT prophylaxis: Subcutaneous heparin GI Prophylaxis: Pepcid PT/OT: Pending Prognosis is guarded
[2023-10-16 11:34] LABS: Glucose,Whole Blood 126 mg/dL (70-110)
[2023-10-16] MEDS ORDERED: NITROGLYCERIN SL TABS 0.4 MG TAB SUBLINGUAL PRN (12:47)
[2023-10-16] MEDS ORDERED: MELATONIN 5 MG TABLET PO PRN (12:47)
[2023-10-16] MEDS ORDERED: ALBUTEROL NEBULIZED 2.5 MG/3 ML INHALATION PRN ×2 (12:47)
[2023-10-16] MEDS ORDERED: COLCHICINE 0.6 MG EACH PO PRN (12:47)
[2023-10-16] MEDS: NYSTATIN 100,000 UNIT/GM POWD 15 GM TOPICAL SCH (13:07)
[2023-10-16] MEDS: LEVOTHYROXINE 88 MCG TAB PO SCH (13:07)
[2023-10-16] MEDS: TAMSULOSIN 0.4 MG CAP.ER.24H PO SCH (13:50)
[2023-10-16] MEDS: METOPROLOL TARTRATE 50 MG TAB PO SCH (13:50)
[2023-10-16] MEDS: HYDROcodone/APAP 7.5-325MG 1 EACH TAB PO PRN (13:51)
[2023-10-16 16:21] LABS: Glucose,Whole Blood 123 mg/dL (70-110)
[2023-10-16] MEDS: NON FORMULARY DRUG (Vitamin B Complex [Vitamin B Complex] 1 EACH Capsule) PO SCH (17:30)
[2023-10-16] MEDS: polyethylene glycoL 3350 17 GM POWD.PACK PO SCH ×2 (17:30→21:10)
[2023-10-16 20:46] LABS: Glucose,Whole Blood 119 mg/dL (70-110)
[2023-10-16] MEDS ORDERED: NON FORMULARY DRUG (Turmeric Root Extract [Turmeric] 500 MG Capsule) PO SCH (21:00)
[2023-10-16] MEDS: MAGNESIUM OXIDE 400 MG TAB PO SCH (21:17)
[2023-10-16] MEDS: CHOLECALCIFEROL 25 MCG (1000 IU) TABLET PO SCH (21:17)
[2023-10-16] MEDS: EZETIMIBE 10 MG TAB PO SCH (21:18)
[2023-10-16] MEDS: ATORVASTATIN 80 MG TAB PO SCH (21:18)
[2023-10-16] MEDS: RANOLAZINE 500 MG TAB.ER.12H PO SCH (21:18)
[2023-10-17] MEDS: ONDANSETRON 4 MG/2 ML VIAL IVP PRN (00:58)
[2023-10-17 06:02] LABS: Glucose,Whole Blood 110 mg/dL (70-110)
[2023-10-17] MEDS: DAPAGLIFLOZIN PROPANEDIOL 5 MG TABLET PO SCH (08:46)
[2023-10-17] MEDS: allopurinoL 300 MG TAB PO SCH (08:47)
[2023-10-17] MEDS: ISOSORBIDE MONONITRATE ER 60 MG TAB.ER.24H PO SCH (08:48)
[2023-10-17] MEDS: LINAGLIPTIN 5 MG TABLET PO SCH (08:48)
[2023-10-17 10:47] LABS: BUN/Creat Ratio 20.47 Ratio (12.00-20.00); Blood Urea Nitrogen 38.9 mg/dL (9.0-27.0); Calcium 8.9 mg/dL (8.7-10.3); Carbon Dioxide 21.9 mmol/L (21.6-31.8); Chloride 98 mmol/L (96-109); Glucose 116 mg/dL (70-110); Potassium 3.9 mmol/L (3.5-5.5); Sodium 136 mmol/L (135-145)
[2023-10-17 11:11] LABS: Basophils # (A) 0.06 X 10*3/uL (0.00-0.10); Basophils % (A) 0.3 %; Eosinophils # (A) 0.31 X 10*3/uL (0.04-0.35); Eosinophils % (A) 1.7 %; HCT 36.2 % (39.6-50.0); HGB 11.6 g/dL (13.0-17.0); Lymphocytes # (A) 1.45 X 10*3/uL (0.90-5.00); Lymphocytes % (A) 8.1 %; MCH 33.5 pg (27.0-32.0); MCV 104.6 FL (80.0-97.0); Monocytes # (A) 1.55 X 10*3/uL (0.20-1.00); Monocytes % (A) 8.7 %; NRBC Per 100 WBC 0 X 10*3/uL (0.00-0.01); Neutrophils % (A) 80.2 %; Platelet Count 226 X 10*3/uL (140-440); RBC 3.46 X 10*6/uL (4.40-5.60); RDW 15.3 % (11.5-14.5); WBC 17.84 X 10*3/uL (4.50-10.00)
[2023-10-17 11:25] LABS: Glucose,Whole Blood 121 mg/dL (70-110)
[2023-10-17] MEDS: IBUPROFEN 400 MG TAB PO PRN (13:16)
--- NOTE | 2023-10-17 13:17 | P.PN ---
Subjective Progress Note Date: 10/17/23 This is a pleasant 83 years old male with multiple medical problems as below Patient presents because there is a blood in his urine, however he denies dysuria or urgency. No suprapubic or flank pain. No nausea vomiting. Patient denies chest pain or dyspnea. No diarrhea abdominal pain or vomiting No headache dizziness weakness numbness. No fever or chills. Patient denies smoking alcohol or illicit drugs. Bladder scan was checked and was low Patient vitals checked and he is currently hemodynamically stable however he has a fever on admission 101.1. His labs show a leukocytosis with 18.6, hemoglobin 12.6, creatinine is slightly elevated at 1.6 which is close to baseline 1.0-1.6. Liver enzymes not elevated, INR is 1.0. Troponin is -0.15. Urine analysis is highly suspicious of infection Influenza A and type B, RSV, SARS (coronavirus) are and detected Chest x-ray showing cardiomegaly with mild vascular congestion also has right pulmonary nodule which require CAT scan as an outpatient, patient informed with risk of cancer explained for him and he verbalized understanding and acceptance EKG showing normal sinus rhythm at [address]-T changes and QTc 391 REVIEW OF SYSTEMS: CONSTITUTIONAL: No fever, no malaise,. CARDIOVASCULAR: No chest pain, no palpitations, no syncope. PULMONARY: No shortness of breath, no cough, GASTROINTESTINAL: No diarrhea, no nausea, no vomiting, no abdominal pain. NEUROLOGICAL: No headaches, no weakness, 4/5. Patient seen and examined. Complaining of pain in his buttocks. Denies any fever or chills. PHYSICAL EXAMINATION: GENERAL: The patient is alert and oriented x3, not in any acute distress. Well developed, well nourished. HEENT: Pupils are round and equally reacting to light. EOMI. No scleral icterus. No conjunctival pallor. Normocephalic, atraumatic. No pharyngeal erythema. No thyromegaly. CARDIOVASCULAR: S1 and S2 present. No murmurs, rubs, or gallops. PULMONARY: Chest is clear to auscultation, no wheezing or crackles. ABDOMEN: Soft, nontender, nondistended, normoactive bowel sounds. No palpable organomegaly. MUSCULOSKELETAL: No joint swelling or deformity. EXTREMITIES: No cyanosis, clubbing, or pedal edema. NEUROLOGICAL: Gross neurological examination did not reveal any focal deficits. SKIN: No rashes. Assessment and plan Acute urinary tract infection Hematuria secondary to above CKD stage III with possible some elements of mild acute kidney injury Sepsis with fever and leukocytosis Obesity diabetes mellitus Hypertension Hyperlipidemia History of lymphoma s/p chemotherapy in 2019 Coronary artery disease status post stent and CABG Monitor vital signs Monitor CBC Monitor CMP Continue telemetry monitoring Encourage use of incentive spirometer Follow-up on blood cultures -follow urine culture continue IV Rocephin -continue IV fluids continue home meds ID consulted Labs and medication were reviewed.. Continue same treatment. Continue with symptomatic treatment. Resume home medication. Monitor labs and vitals. DVT and GI prophylaxis. Further recommendations as per clinical course of the patient Dictation was produced using [employer] dictation software. please excuse any grammatical, word or spelling errors. Objective - Vital Signs Vital signs: Vital Signs Temp 98.5 F 10/17/23 06:58 Pulse 71 10/17/23 07:10 Resp 17 10/17/23 07:10 BP 144/70 10/17/23 06:58 Pulse Ox 91 L 10/17/23 06:58 FiO2 Intake & Output 10/16/23 10/17/23 10/17/23 18:59 06:59 18:59 Output Total 325 Balance -325 Output: Urine 325 Other: Voiding Method Diaper Urinal Urinal # Voids 6 # Bowel Movements 0 - Labs CBC & Chem 7: 10/17/23 07:12 10/17/23 07:12 Labs: Abnormal Lab Results - Last 24 Hours (Table) 10/16/23 10/16/23 10/16/23 Range/Units 07:11 07:12 11:33 POC Glucose (mg/dL) 126 H (70-110) mg/dL Hemoglobin A1c 6.1 H (<=6.0) % Folate 37.90 H (4.40-31.00) ng/mL 10/16/23 10/16/23 Range/Units 16:20 20:40 POC Glucose (mg/dL) 123 H 119 H (70-110) mg/dL Hemoglobin A1c (<=6.0) % Folate (4.40-31.00) ng/mL Microbiology - Last 24 Hours (Table) 10/15/23 20:20 Blood Culture - Preliminary Blood 10/15/23 20:05 Blood Culture - Preliminary Blood
[2023-10-17 16:34] LABS: Glucose,Whole Blood 124 mg/dL (70-110)
[2023-10-17 20:42] LABS: Glucose,Whole Blood 142 mg/dL (70-110)
--- NOTE | 2023-10-17 21:55 | P.CONS ---
History of Present Illness - Reason for Consult Consult date: 10/17/23 UTI, sepsis Requesting physician: Frederick Mcfarlane - Chief Complaint Generalized weakness x few days - History of Present Illness Patient is a 83-year-old male with a past medical history significant for diabetes mellitus hypertension hyperlipidemia NV history of skin cancer lymphoma presenting to the hospital 2 days ago for evaluation of generalized weakness apparently patient symptom has been getting worse for a day or 2 before patient was brought to the hospital and on the day of admission the patient sat on the toilet and was unable to get up EMS was called and who brought the patient to the hospital and the patient noticed no blood in the toilet mostly from urination as he did not have any bowel movement patient was complaining of significantly of urination and some burning but no suprapubic or flank pain denies having any nausea or vomiting and no diarrhea on arrival to the ER the patient did have a fever of 101.1 F patient was not tachycardic hypotensive or hypoxic and no need for supplemental oxygen patient did have vital of 18.6, white count is still high at 17.8 BUN and creatinine has been elevated urine was positive influenza RSV COVID testing negative patient did have a chest x-ray cardiomegaly with mild congestive changes nodular density on the right concerning for possible pulmonary nodule patient has been treated with Rocephin infectious disease was consulted today for further management of antibiotic therapy Review of Systems Positive point and negatives has been mentioned in the HPI, complete review of systems was performed and all other systems are negative Past Medical History Past Medical History: Cancer, Diabetes Mellitus, Hyperlipidemia, Hypertension, Myocardial Infarction ([place]) Additional Past Medical History / Comment(s): SKIN CANCER , GOUT CHRONIC BACK Pain,SKIN LESIONS , 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 Last Myocardial Infarction Date:: 08/18/19 History of Any Multi-Drug Resistant Organisms: MRSA Year Discovered:: 07/22/16 MDRO Source:: LOWER LEGS Past Surgical History: Cholecystectomy, Coronary Bypass/CABG, Heart Catheterizat ion, Joint Replacement Additional Past Surgical History / Comment(s): PICC line insertion/removed, bilateral caract removals, COLONOSCOPY, EGD, CANCEROUS SKIN LESIONS REMOVED, TOTAL RIGHT KNEE REPLACEMENT, 06-04-16 QUAD BYPASS Past Anesthesia/Blood Transfusion Reactions: Previous Problems w/ Anesthesia Additional Past Anesthesia/Blood Transfusion Reaction / Comm: HAD A HARD TIME COMING OUT OF ANESTHESIA AFTER CHOLECYSTECTOMY Past Psychological History: No Psychological Hx Reported Additional Psychological History / Comment(s): 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 Smoking Status: Former smoker Past Alcohol Use History: None Reported Additional Past Alcohol Use History / Comment(s): Pt quit smoking in 1982, STARTED SMOKING AT AGE 18 SMOKED 1 PPD. Past Drug Use History: None Reported - Past Family History Father Family Medical History: Vascular Disorder Additional Family Medical History / Comment(s): POOR CIRCULATION-HAD AMPUTATIONS D/T POOR CIRCULATION Mother Family Medical History: Cancer Additional Family Medical History / Comment(s): STOMACH CANCER Medications and Allergies Home Medications Medication Instructions Recorded Confirmed Type allopurinoL [Zyloprim] 300 mg PO DAILY 07/22/16 10/16/23 History Aspirin EC [Ecotrin Low Dose] 81 mg PO DAILY 09/20/18 10/16/23 History HYDROcodone/APAP 7.5-325MG [[place] 1 tab PO BID 07/10/19 10/16/23 History 7.5-325] Magnesium Oxide [Magox 400] 400 mg PO HS 08/17/19 10/16/23 History Turmeric Root Extract [Turmeric] 500 mg PO BID 08/17/19 10/16/23 History Isosorbide Mononitrate ER [Imdur] 60 mg PO DAILY #30 tab 08/19/19 10/16/23 Rx Vitamin B Complex 1 cap PO DAILY 08/29/19 10/16/23 History Ezetimibe [Zetia] 10 mg PO HS 10/24/21 10/16/23 History Albuterol Inhaler [Ventolin Hfa 2 puff INHALATION RT-Q6H PRN 11/28/22 10/16/23 History Inhaler] Atorvastatin [Lipitor] 80 mg PO HS 11/28/22 10/16/23 History Levothyroxine Sodium [Synthroid] 88 mcg PO DAILY 11/28/22 10/16/23 History Tamsulosin [Flomax] 0.4 mg PO BID 11/28/22 10/16/23 History Cholecalciferol (Vitamin D3) 75 mcg PO HS 05/19/23 10/16/23 History [Vitamin D3 (3000 Iu)] Colchicine [Colcrys] 0.6 mg PO DAILY PRN 05/19/23 10/16/23 History sitaGLIPtin [Januvia] 50 mg PO DAILY 05/19/23 10/16/23 History Albuterol Nebulized [Ventolin 2.5 mg INHALATION RT-Q6H PRN 08/31/23 10/16/23 History Nebulized] Empagliflozin [Jardiance] 10 mg PO DAILY 08/31/23 10/16/23 History Melatonin 5 mg PO HS PRN 08/31/23 10/16/23 History Acetaminophen Tab [Tylenol] 650 mg PO Q6HR PRN tab 09/06/23 10/16/23 Rx Nystatin 100,000 Unit/gm Powd 1 applic TOPICAL BID #1 each 09/06/23 10/16/23 Rx [Mycostatin Powder] Torsemide [Demadex] 20 mg PO DAILY #30 tab 09/06/23 10/16/23 Rx polyethylene glycoL 3350 [Miralax] 17 gm PO DAILY packet 09/06/23 10/16/23 Rx Nitroglycerin Sl Tabs [Nitrostat] 0.4 mg SL Q5M PRN 09/10/23 10/16/23 History Ranolazine [Ranexa] 500 mg PO BID 09/10/23 10/16/23 History Metoprolol Tartrate [Lopressor] 50 mg PO BID #60 tab 10/20/23 Rx cefUROXime axetiL [Cefuroxime] 500 mg PO BID 5 Days #10 tab 10/20/23 Rx Allergies Allergy/AdvReac Type Severity Reaction Status Date / Time No Known Allergies Allergy Verified 10/16/23 08:49 Physical Exam Vitals: Vital Signs Temp Pulse Pulse Resp BP BP Pulse Ox 10/17/23 07:10 71 17 10/17/23 06:58 98.5 F 45 L 17 144/70 91 L 10/17/23 01:28 98.2 F 71 18 113/50 91 L 10/16/23 20:14 97.8 F 71 18 133/54 97 10/16/23 19:20 58 L 17 10/16/23 16:53 97.5 F L 58 L 17 114/55 98 10/16/23 13:35 97.9 F 72 18 165/51 98 Intake and Output 10/16/23 10/17/23 10/17/23 22:59 06:59 14:59 Output Total 325 Balance -325 Output: Urine 325 Other: Voiding Method Urinal Urinal # Voids 6 # Bowel Movements 0 GENERAL DESCRIPTION: Elderly male up in the chair, no distress. No tachypnea or accessory muscle of respiration use. HEENT: Shows Pallor , no scleral icterus. Oral mucous membrane is dry. No pharyngeal erythema or thrush NECK: Trachea central, no thyromegaly. LUNGS: Unlabored breathing. Clear to auscultation anteriorly HEART: S1, S2, regular rate and rhythm. No loud murmur ABDOMEN: Soft, no tenderness , EXTREMITIES: Diffuse swelling to the leg but no redness SKIN: No rash, no masses palpable. NEUROLOGICAL: The patient is awake, alert, oriented x3, mood and affect normal. Results CBC & Chem 7: 10/19/23 05:23 10/19/23 05:23 Labs: Abnormal Lab Results - Last 24 Hours (Table) 10/16/23 10/16/23 10/16/23 Range/Units 07:12 16:20 20:40 WBC (4.50-10.00) X 10*3/uL RBC (4.40-5.60) X 10*6/uL Hgb (13.0-17.0) g/dL Hct (39.6-50.0) % MCV (80.0-97.0) FL MCH (27.0-32.0) pg RDW (11.5-14.5) % Immature Gran # (0.00-0.04) X 10*3/uL Neutrophils # (1.80-7.70) X 10*3/uL Monocytes # (0.20-1.00) X 10*3/uL Anion Gap (4.00-12.00) mmol/L BUN (9.0-27.0) mg/dL Creatinine (0.6-1.5) mg/dL Est GFR (CKD-EPI) (>=60) BUN/Creatinine Ratio (12.00-20.00) Ratio Glucose (70-110) mg/dL POC Glucose (mg/dL) 123 H 119 H (70-110) mg/dL Folate 37.90 H (4.40-31.00) ng/mL 10/17/23 10/17/23 10/17/23 Range/Units 07:12 07:12 11:23 WBC 17.84 H (4.50-10.00) X 10*3/uL RBC 3.46 L (4.40-5.60) X 10*6/uL Hgb 11.6 L (13.0-17.0) g/dL Hct 36.2 L (39.6-50.0) % MCV 104.6 H (80.0-97.0) FL MCH 33.5 H (27.0-32.0) pg RDW 15.3 H (11.5-14.5) % Immature Gran # 0.17 H (0.00-0.04) X 10*3/uL Neutrophils # 14.30 H (1.80-7.70) X 10*3/uL Monocytes # 1.55 H (0.20-1.00) X 10*3/uL Anion Gap 16.10 H (4.00-12.00) mmol/L BUN 38.9 H (9.0-27.0) mg/dL Creatinine 1.9 H (0.6-1.5) mg/dL Est GFR (CKD-EPI) 35 L (>=60) BUN/Creatinine Ratio 20.47 H (12.00-20.00) Ratio Glucose 116 H (70-110) mg/dL POC Glucose (mg/dL) 121 H (70-110) mg/dL Folate (4.40-31.00) ng/mL Microbiology - Last 24 Hours (Table) 10/15/23 20:20 Blood Culture - Preliminary Blood 10/15/23 20:05 Blood Culture - Preliminary Blood Assessment and Plan (1) UTI (urinary tract infection) Status: Acute Code(s): N39.0 - URINARY TRACT INFECTION, SITE NOT SPECIFIED SNOMED Code(s): 78314694 Plan: 1patient presented to hospital with sepsis in this patient who did have fever elevated white count source likely UTI as patient noted to have significantly positive UA also with elevated BUN and creatinine concern for possible complicated UTI 2-we will obtain a urine cultures as not has been done on admission though results may be affected as the patient is on antibiotics currently 3-check ultrasound of the kidney bladder area 4-for now continue with Rocephin 2 g daily We will follow on clinical condition and cultures to further adjust medication if needed Thank you for this consultation we will follow the patient along with you Dictation was produced using [employer] dictation software. please excuse any grammatical, word or spelling errors. Time with Patient: Greater than 30
[2023-10-18 05:57] LABS: Glucose,Whole Blood 110 mg/dL (70-110)
[2023-10-18] MEDS: METOPROLOL TARTRATE 50 MG TAB PO SCH (08:13)
[2023-10-18] MEDS ORDERED: METOPROLOL TARTRATE 50 MG TAB PO SCH (09:00)
--- NOTE | 2023-10-18 09:06 | US ---
EXAMINATION TYPE: US kidneys/renal and bladder DATE OF EXAM: 10/18/2023 COMPARISON: US CLINICAL INDICATION: Male, 83 years old with history of uti and bacteremia; UTI EXAM MEASUREMENTS: Right Kidney: 12.2 x 5.4 x 6.1 cm Left Kidney: 12.1 x 5.9 x 5.6 cm Morbidly obese pt who is not easily mobile and unable to tolerate probe pressure- limited views Right Kidney: Limited views show no hydro Left Kidney: Limited views show no hydro Bladder: wnl Bilateral Jets seen: No There is no evidence for hydronephrosis at this point in time. No nephrolithiasis is seen. No nadia s are identified. The urinary bladder is anechoic. IMPRESSION: Limited study. Gross abnormality not appreciated with certainty.
[2023-10-18 09:45] LABS: Basophils # (A) 0.07 X 10*3/uL (0.00-0.10); Basophils % (A) 0.7 %; Eosinophils # (A) 0.44 X 10*3/uL (0.04-0.35); Eosinophils % (A) 4.1 %; HCT 35.5 % (39.6-50.0); HGB 11.5 g/dL (13.0-17.0); Lymphocytes % (A) 11.2 %; MCH 33.4 pg (27.0-32.0); MCHC 32.4 g/dL (32.0-37.0); MCV 103.2 FL (80.0-97.0); Mean Platelet Volume 10.4 FL (9.5-12.2); Monocytes # (A) 0.83 X 10*3/uL (0.20-1.00); Monocytes % (A) 7.8 %; NRBC Per 100 WBC 0 X 10*3/uL (0.00-0.01); Neutrophils # (A) 7.93 X 10*3/uL (1.80-7.70); Neutrophils % (A) 74.3 %; Platelet Count 245 X 10*3/uL (140-440); RBC 3.44 X 10*6/uL (4.40-5.60); WBC 10.67 X 10*3/uL (4.50-10.00)
[2023-10-18 09:52] LABS: ALT 24 U/L (10-49); AST 28 U/L (14-35); Albumin 3.5 g/dL (3.8-4.9); Albumin/Globulin Ratio 1.75 Ratio (1.60-3.17); Alkaline Phosphatase 92 U/L (41-126); BUN/Creat Ratio 23.58 Ratio (12.00-20.00); Blood Urea Nitrogen 44.8 mg/dL (9.0-27.0); Calcium 8.5 mg/dL (8.7-10.3); Carbon Dioxide 24.2 mmol/L (21.6-31.8); Chloride 102 mmol/L (96-109); Glucose 108 mg/dL (70-110); Potassium 3.7 mmol/L (3.5-5.5); Sodium 139 mmol/L (135-145); Total Bilirubin 0.2 mg/dL (0.3-1.2); Total Protein 5.5 g/dL (6.2-8.2)
[2023-10-18 11:35] LABS: Glucose,Whole Blood 152 mg/dL (70-110)
--- NOTE | 2023-10-18 12:51 | P.PN ---
Subjective Progress Note Date: 10/18/23 This is a pleasant 83 years old male with multiple medical problems as below Patient presents because there is a blood in his urine, however he denies dysuria or urgency. No suprapubic or flank pain. No nausea vomiting. Patient denies chest pain or dyspnea. No diarrhea abdominal pain or vomiting No headache dizziness weakness numbness. No fever or chills. Patient denies smoking alcohol or illicit drugs. Bladder scan was checked and was low Patient vitals checked and he is currently hemodynamically stable however he has a fever on admission 101.1. His labs show a leukocytosis with 18.6, hemoglobin 12.6, creatinine is slightly elevated at 1.6 which is close to baseline 1.0-1.6. Liver enzymes not elevated, INR is 1.0. Troponin is -0.15. Urine analysis is highly suspicious of infection Influenza A and type B, RSV, SARS (coronavirus) are and detected Chest x-ray showing cardiomegaly with mild vascular congestion also has right pulmonary nodule which require CAT scan as an outpatient, patient informed with risk of cancer explained for him and he verbalized understanding and acceptance EKG showing normal sinus rhythm at [address]-T changes and QTc 391 REVIEW OF SYSTEMS: CONSTITUTIONAL: No fever, no malaise,. CARDIOVASCULAR: No chest pain, no palpitations, no syncope. PULMONARY: No shortness of breath, no cough, GASTROINTESTINAL: No diarrhea, no nausea, no vomiting, no abdominal pain. NEUROLOGICAL: No headaches, no weakness, 4/5. Patient seen and examined. Complaining of pain in his buttocks. Denies any fever or chills. /6. Patient seen and examined. Vital signs on this morning showed temperature 98.1, heart rate 54, blood pressure 128/67, patient was bradycardic heart rate dipping into mid 40s yesterday, dose of Lopressor was decreased to 50 mg twice a day. Blood work done this morning showed WBC 10.67, hemoglobin 9.5, platelet count 245, sodium 139, potassium 3.7 BUN 44, creatinine 1.9 PHYSICAL EXAMINATION: GENERAL: The patient is alert and oriented x3, not in any acute distress. Well developed, well nourished. HEENT: Pupils are round and equally reacting to light. EOMI. No scleral icterus. No conjunctival pallor. Normocephalic, atraumatic. No pharyngeal erythema. No thyromegaly. CARDIOVASCULAR: S1 and S2 present. No murmurs, rubs, or gallops. PULMONARY: Chest is clear to auscultation, no wheezing or crackles. ABDOMEN: Soft, nontender, nondistended, normoactive bowel sounds. No palpable organomegaly. MUSCULOSKELETAL: No joint swelling or deformity. EXTREMITIES: No cyanosis, clubbing, or pedal edema. NEUROLOGICAL: Gross neurological examination did not reveal any focal deficits. SKIN: No rashes. Assessment and plan Acute urinary tract infection Hematuria secondary to above CKD stage III with possible some elements of mild acute kidney injury Sepsis with fever and leukocytosis Obesity diabetes mellitus Hypertension Hyperlipidemia History of lymphoma s/p chemotherapy in 2019 Coronary artery disease status post stent and CABG Monitor vital signs Monitor CBC Monitor CMP Continue telemetry monitoring Encourage use of incentive spirometer Follow-up on blood cultures Because of heart rate dipping into 40s, dose of Lopressor was decreased from 150 mg twice a day to 50 mg twice a day, heart rate is improved now. -follow urine culture continue IV Rocephin Continue Synthroid Continue Lipitor, Farxiga, Zetia continue home meds ID consulted Labs and medication were reviewed.. Continue same treatment. Continue with symptomatic treatment. Resume home medication. Monitor labs and vitals. DVT and GI prophylaxis. Further recommendations as per clinical course of the patient Dictation was produced using [employer] dictation software. please excuse any grammatical, word or spelling errors. Objective - Vital Signs Vital signs: Vital Signs Temp 98.1 F 10/18/23 07:34 Pulse 54 L 10/18/23 07:34 Resp 18 10/18/23 07:34 BP 128/67 10/18/23 07:34 Pulse Ox 95 10/18/23 07:34 FiO2 Intake & Output 10/17/23 10/18/23 10/18/23 18:59 06:59 18:59 Intake Total 1000 950 Output Total 425 450 Balance 575 500 Intake: Intake, IV Titration 600 Amount Sodium Chloride 0.9% 1, 600 000 ml @ 75 mls/hr IV . [id number] JONY Rx#:[id number] Oral 400 950 Output: Urine 425 450 Uretheral (Bosch) 425 Other: Voiding Method Urinal Urinal # Voids 1 - Labs CBC & Chem 7: 10/18/23 06:25 10/18/23 06:25 Labs: Abnormal Lab Results - Last 24 Hours (Table) 10/17/23 10/17/23 10/17/23 Range/Units 07:12 07:12 11:23 WBC 17.84 H (4.50-10.00) X 10*3/uL RBC 3.46 L (4.40-5.60) X 10*6/uL Hgb 11.6 L (13.0-17.0) g/dL Hct 36.2 L (39.6-50.0) % MCV 104.6 H (80.0-97.0) FL MCH 33.5 H (27.0-32.0) pg RDW 15.3 H (11.5-14.5) % Immature Gran # 0.17 H (0.00-0.04) X 10*3/uL Neutrophils # 14.30 H (1.80-7.70) X 10*3/uL Monocytes # 1.55 H (0.20-1.00) X 10*3/uL Anion Gap 16.10 H (4.00-12.00) mmol/L BUN 38.9 H (9.0-27.0) mg/dL Creatinine 1.9 H (0.6-1.5) mg/dL Est GFR (CKD-EPI) 35 L (>=60) BUN/Creatinine Ratio 20.47 H (12.00-20.00) Ratio Glucose 116 H (70-110) mg/dL POC Glucose (mg/dL) 121 H (70-110) mg/dL 10/17/23 10/17/23 Range/Units 16:32 20:41 WBC (4.50-10.00) X 10*3/uL RBC (4.40-5.60) X 10*6/uL Hgb (13.0-17.0) g/dL Hct (39.6-50.0) % MCV (80.0-97.0) FL MCH (27.0-32.0) pg RDW (11.5-14.5) % Immature Gran # (0.00-0.04) X 10*3/uL Neutrophils # (1.80-7.70) X 10*3/uL Monocytes # (0.20-1.00) X 10*3/uL Anion Gap (4.00-12.00) mmol/L BUN (9.0-27.0) mg/dL Creatinine (0.6-1.5) mg/dL Est GFR (CKD-EPI) (>=60) BUN/Creatinine Ratio (12.00-20.00) Ratio Glucose (70-110) mg/dL POC Glucose (mg/dL) 124 H 142 H (70-110) mg/dL Microbiology - Last 24 Hours (Table) 10/15/23 20:20 Blood Culture - Preliminary Blood 10/15/23 20:05 Blood Culture - Preliminary Blood
--- NOTE | 2023-10-18 14:50 | P.PN ---
Subjective Progress Note Date: 10/18/23 Principal diagnosis: Is in for follow-up is a urinary tract infection Patient is a 83-year-old male with a past medical history significant for diabetes mellitus hypertension hyperlipidemia MS history of skin cancer lymphoma presenting to the hospital for evaluation generalized weakness patient did have a fever positive UA urinary symptoms concerning for symptomatic UTI. On today's visit that is 10/18/2023, the patient did have resolution of his fever and is afebrile today, the patient is on room air and breathing comfortably, the Pt denies having any chest pain or cough, the patient denies having any abdominal pain no vomiting or any diarrhea, mention feeling slightly better. Patient white count is 10.67, creatinine is 1.9 ultrasound did not show any hydronephrosis or stone blood cultures pending Objective - Vital Signs Vital signs: Vital Signs Temp 98.1 F 10/18/23 13:56 Pulse 42 L 10/18/23 13:56 Resp 17 10/18/23 13:56 BP 116/69 10/18/23 13:56 Pulse Ox 93 L 10/18/23 13:56 FiO2 Intake & Output 10/17/23 10/18/23 10/18/23 18:59 06:59 18:59 Intake Total 1000 950 Output Total 425 450 Balance 575 500 Intake: Intake, IV Titration 600 Amount Sodium Chloride 0.9% 1, 600 000 ml @ 75 mls/hr IV . [id number] [facility] Rx#:[id number] Oral 400 950 Output: Urine 425 450 Uretheral (Bosch) 425 Other: Voiding Method Urinal Urinal # Voids 1 - Exam GENERAL DESCRIPTION: An elderly male up in the chair in no distress RESPIRATORY SYSTEM: Unlabored breathing , decreased breath sounds at bases HEART: S1 S2 regular rate and rhythm , ABDOMEN: Soft , no tenderness EXTREMITIES: No edema feet - Labs CBC & Chem 7: 10/18/23 06:25 10/18/23 06:25 Labs: Abnormal Lab Results - Last 24 Hours (Table) 10/17/23 10/17/23 10/18/23 Range/Units 16:32 20:41 06:25 WBC 10.67 H (4.50-10.00) X 10*3/uL RBC 3.44 L (4.40-5.60) X 10*6/uL Hgb 11.5 L (13.0-17.0) g/dL Hct 35.5 L (39.6-50.0) % MCV 103.2 H (80.0-97.0) FL MCH 33.4 H (27.0-32.0) pg RDW 15.0 H (11.5-14.5) % Immature Gran # 0.20 H (0.00-0.04) X 10*3/uL Neutrophils # 7.93 H (1.80-7.70) X 10*3/uL Eosinophils # 0.44 H (0.04-0.35) X 10*3/uL Anion Gap (4.00-12.00) mmol/L BUN (9.0-27.0) mg/dL Creatinine (0.6-1.5) mg/dL Est GFR (CKD-EPI) (>=60) BUN/Creatinine Ratio (12.00-20.00) Ratio POC Glucose (mg/dL) 124 H 142 H (70-110) mg/dL Calcium (8.7-10.3) mg/dL Total Bilirubin (0.3-1.2) mg/dL Total Protein (6.2-8.2) g/dL Albumin (3.8-4.9) g/dL 10/18/23 10/18/23 Range/Units 06:25 11:33 WBC (4.50-10.00) X 10*3/uL RBC (4.40-5.60) X 10*6/uL Hgb (13.0-17.0) g/dL Hct (39.6-50.0) % MCV (80.0-97.0) FL MCH (27.0-32.0) pg RDW (11.5-14.5) % Immature Gran # (0.00-0.04) X 10*3/uL Neutrophils # (1.80-7.70) X 10*3/uL Eosinophils # (0.04-0.35) X 10*3/uL Anion Gap 12.80 H (4.00-12.00) mmol/L BUN 44.8 H (9.0-27.0) mg/dL Creatinine 1.9 H (0.6-1.5) mg/dL Est GFR (CKD-EPI) 35 L (>=60) BUN/Creatinine Ratio 23.58 H (12.00-20.00) Ratio POC Glucose (mg/dL) 152 H (70-110) mg/dL Calcium 8.5 L (8.7-10.3) mg/dL Total Bilirubin 0.2 L (0.3-1.2) mg/dL Total Protein 5.5 L (6.2-8.2) g/dL Albumin 3.5 L (3.8-4.9) g/dL Microbiology - Last 24 Hours (Table) 10/15/23 20:05 Blood Culture - Preliminary Blood 10/15/23 20:20 Blood Culture - Preliminary Blood Assessment and Plan (1) UTI (urinary tract infection) Current Visit: Yes Status: Acute Code(s): N39.0 - URINARY TRACT INFECTION, SITE NOT SPECIFIED SNOMED Code(s): 45799223 Plan: 1patient presented to hospital with sepsis in this patient who did have fever elevated white count source likely UTI as patient noted to have significantly positive UA also with elevated BUN and creatinine concern for possible complicated UTI 2-we will obtain a urine cultures as not has been done on admission though results may be affected as the patient is on antibiotics currently 3-ultrasound of the kidney bladder area did not show any structural abnormality 4-patient to continue with Rocephin 2 g daily while waiting for the culture to finalize Dictation was produced using [employer] dictation software. please excuse any grammatical, word or spelling errors.
[2023-10-18 16:44] LABS: Glucose,Whole Blood 124 mg/dL (70-110)
[2023-10-18 21:11] LABS: Glucose,Whole Blood 130 mg/dL (70-110)
[2023-10-19 06:50] LABS: Glucose,Whole Blood 122 mg/dL (70-110)
[2023-10-19 07:50] VITALS: RESP 18
[2023-10-19 09:52] LABS: HGB 10.9 g/dL (13.0-17.0); MCHC 32.1 g/dL (32.0-37.0); Mean Platelet Volume 10.5 FL (9.5-12.2); NRBC Per 100 WBC 0 X 10*3/uL (0.00-0.01); Platelet Count 266 X 10*3/uL (140-440); RDW 15.1 % (11.5-14.5); WBC 11.52 X 10*3/uL (4.50-10.00)
[2023-10-19 09:55] LABS: ALT 30 U/L (10-49); AST 32 U/L (14-35); Albumin 3.6 g/dL (3.8-4.9); Albumin/Globulin Ratio 1.71 Ratio (1.60-3.17); Alkaline Phosphatase 94 U/L (41-126); Blood Urea Nitrogen 40.5 mg/dL (9.0-27.0); Calcium 8.9 mg/dL (8.7-10.3); Carbon Dioxide 23.7 mmol/L (21.6-31.8); Chloride 102 mmol/L (96-109); Globulin 2.1 g/dL (1.6-3.3); Glucose 108 mg/dL (70-110); Potassium 4.4 mmol/L (3.5-5.5); Sodium 136 mmol/L (135-145); Total Bilirubin 0.3 mg/dL (0.3-1.2); Total Protein 5.7 g/dL (6.2-8.2)
--- NOTE | 2023-10-19 12:27 | P.PN ---
Subjective Progress Note Date: 10/19/23 This is a pleasant 83 years old male with multiple medical problems as below Patient presents because there is a blood in his urine, however he denies dysuria or urgency. No suprapubic or flank pain. No nausea vomiting. Patient denies chest pain or dyspnea. No diarrhea abdominal pain or vomiting No headache dizziness weakness numbness. No fever or chills. Patient denies smoking alcohol or illicit drugs. Bladder scan was checked and was low Patient vitals checked and he is currently hemodynamically stable however he has a fever on admission 101.1. His labs show a leukocytosis with 18.6, hemoglobin 12.6, creatinine is slightly elevated at 1.6 which is close to baseline 1.0-1.6. Liver enzymes not elevated, INR is 1.0. Troponin is -0.15. Urine analysis is highly suspicious of infection Influenza A and type B, RSV, SARS (coronavirus) are and detected Chest x-ray showing cardiomegaly with mild vascular congestion also has right pulmonary nodule which require CAT scan as an outpatient, patient informed with risk of cancer explained for him and he verbalized understanding and acceptance EKG showing normal sinus rhythm at [address]-T changes and QTc 391 REVIEW OF SYSTEMS: CONSTITUTIONAL: No fever, no malaise,. CARDIOVASCULAR: No chest pain, no palpitations, no syncope. PULMONARY: No shortness of breath, no cough, GASTROINTESTINAL: No diarrhea, no nausea, no vomiting, no abdominal pain. NEUROLOGICAL: No headaches, no weakness, /5. Patient seen and examined. Complaining of pain in his buttocks. Denies any fever or chills. 10/17. Patient seen and examined. Vital signs on this morning showed temperature 98.1, heart rate 54, blood pressure 128/67, patient was bradycardic heart rate dipping into mid 40s yesterday, dose of Lopressor was decreased to 50 mg twice a day. Blood work done this morning showed WBC 10.67, hemoglobin 9.5, platelet count 245, sodium 139, potassium 3.7 BUN 44, creatinine 1.9 10/18. Patient seen and examined. Denies any lightheadedness or dizziness. Vital signs stable PHYSICAL EXAMINATION: GENERAL: The patient is alert and oriented x3, not in any acute distress. Well developed, well nourished. HEENT: Pupils are round and equally reacting to light. EOMI. No scleral icterus. No conjunctival pallor. Normocephalic, atraumatic. No pharyngeal erythema. No thyromegaly. CARDIOVASCULAR: S1 and S2 present. No murmurs, rubs, or gallops. PULMONARY: Chest is clear to auscultation, no wheezing or crackles. ABDOMEN: Soft, nontender, nondistended, normoactive bowel sounds. No palpable organomegaly. MUSCULOSKELETAL: No joint swelling or deformity. EXTREMITIES: No cyanosis, clubbing, or pedal edema. NEUROLOGICAL: Gross neurological examination did not reveal any focal deficits. SKIN: No rashes. Assessment and plan Acute urinary tract infection Hematuria secondary to above CKD stage III with possible some elements of mild acute kidney injury Sepsis with fever and leukocytosis Obesity diabetes mellitus Hypertension Hyperlipidemia History of lymphoma s/p chemotherapy in 2019 Coronary artery disease status post stent and CABG Monitor vital signs Monitor CBC Monitor CMP Continue telemetry monitoring Encourage use of incentive spirometer Follow-up on blood cultures Continue Lopressor -follow urine culture continue IV Rocephin Continue Synthroid Continue Lipitor, Farxiga, Zetia continue home meds ID consulted Labs and medication were reviewed.. Continue same treatment. Continue with symptomatic treatment. Resume home medication. Monitor labs and vitals. DVT and GI prophylaxis. Further recommendations as per clinical course of the patient Dictation was produced using [employer] dictation software. please excuse any grammatical, word or spelling errors. Objective - Vital Signs Vital signs: Vital Signs Temp 98.1 F 10/19/23 07:37 Pulse 61 10/19/23 07:37 Resp 18 10/19/23 07:37 BP 143/51 10/19/23 07:37 Pulse Ox 94 L 10/19/23 07:37 FiO2 Intake & Output 10/18/23 10/19/23 10/19/23 18:59 06:59 18:59 Other: Voiding Method Urinal Urinal # Voids 3 10 - Labs CBC & Chem 7: 10/19/23 05:23 10/19/23 05:23 Labs: Abnormal Lab Results - Last 24 Hours (Table) 10/18/23 10/18/23 10/18/23 Range/Units 06:25 06:25 11:33 WBC 10.67 H (4.50-10.00) X 10*3/uL RBC 3.44 L (4.40-5.60) X 10*6/uL Hgb 11.5 L (13.0-17.0) g/dL Hct 35.5 L (39.6-50.0) % MCV 103.2 H (80.0-97.0) FL MCH 33.4 H (27.0-32.0) pg RDW 15.0 H (11.5-14.5) % Immature Gran # 0.20 H (0.00-0.04) X 10*3/uL Neutrophils # 7.93 H (1.80-7.70) X 10*3/uL Eosinophils # 0.44 H (0.04-0.35) X 10*3/uL Anion Gap 12.80 H (4.00-12.00) mmol/L BUN 44.8 H (9.0-27.0) mg/dL Creatinine 1.9 H (0.6-1.5) mg/dL Est GFR (CKD-EPI) 35 L (>=60) BUN/Creatinine Ratio 23.58 H (12.00-20.00) Ratio POC Glucose (mg/dL) 152 H (70-110) mg/dL Calcium 8.5 L (8.7-10.3) mg/dL Total Bilirubin 0.2 L (0.3-1.2) mg/dL Total Protein 5.5 L (6.2-8.2) g/dL Albumin 3.5 L (3.8-4.9) g/dL 10/18/23 10/18/23 10/19/23 Range/Units 16:42 21:10 06:49 WBC (4.50-10.00) X 10*3/uL RBC (4.40-5.60) X 10*6/uL Hgb (13.0-17.0) g/dL Hct (39.6-50.0) % MCV (80.0-97.0) FL MCH (27.0-32.0) pg RDW (11.5-14.5) % Immature Gran # (0.00-0.04) X 10*3/uL Neutrophils # (1.80-7.70) X 10*3/uL Eosinophils # (0.04-0.35) X 10*3/uL Anion Gap (4.00-12.00) mmol/L BUN (9.0-27.0) mg/dL Creatinine (0.6-1.5) mg/dL Est GFR (CKD-EPI) (>=60) BUN/Creatinine Ratio (12.00-20.00) Ratio POC Glucose (mg/dL) 124 H 130 H 122 H (70-110) mg/dL Calcium (8.7-10.3) mg/dL Total Bilirubin (0.3-1.2) mg/dL Total Protein (6.2-8.2) g/dL Albumin (3.8-4.9) g/dL Microbiology - Last 24 Hours (Table) 10/18/23 02:28 Urine Culture - Final Urine,Voided 10/15/23 20:20 Blood Culture - Preliminary Blood 10/15/23 20:05 Blood Culture Gram Stain - Preliminary Blood Blood Culture - Preliminary
--- NOTE | 2023-10-19 14:58 | P.PN ---
Subjective Progress Note Date: 10/19/23 Principal diagnosis: Is in for follow-up is a urinary tract infection Patient is a 83-year-old male with a past medical history significant for diabetes mellitus hypertension hyperlipidemia PR history of skin cancer lymphoma presenting to the hospital for evaluation generalized weakness patient did have a fever positive UA urinary symptoms concerning for symptomatic UTI. On today's visit that is 10/19/2023, Patient is afebrile patient is currently on room air and denies having any shortness of breath, the patient denies any chest pain or cough, the patient denies any nausea vomiting did not have any abdominal pain and no diarrhea, feeling better. Patient white count of 11.52, creatinine is 1.5 blood urine culture has been negative Objective - Vital Signs Vital signs: Vital Signs Temp 98.1 F 10/19/23 14:39 Pulse 68 10/19/23 14:39 Resp 18 10/19/23 14:39 BP 138/73 10/19/23 14:39 Pulse Ox 97 10/19/23 14:39 FiO2 Intake & Output 10/18/23 10/19/23 10/19/23 18:59 06:59 18:59 Other: Voiding Method Urinal Urinal # Voids 3 10 - Exam GENERAL DESCRIPTION: An elderly male up in the chair in no distress RESPIRATORY SYSTEM: Unlabored breathing , decreased breath sounds at bases HEART: S1 S2 regular rate and rhythm , ABDOMEN: Soft , no tenderness EXTREMITIES: No edema feet - Labs CBC & Chem 7: 10/19/23 05:23 10/19/23 05:23 Labs: Abnormal Lab Results - Last 24 Hours (Table) 10/18/23 10/18/23 10/19/23 Range/Units 16:42 21:10 05:23 WBC 11.52 H (4.50-10.00) X 10*3/uL RBC 3.30 L (4.40-5.60) X 10*6/uL Hgb 10.9 L (13.0-17.0) g/dL Hct 34.0 L (39.6-50.0) % MCV 103.0 H (80.0-97.0) FL MCH 33.0 H (27.0-32.0) pg RDW 15.1 H (11.5-14.5) % BUN (9.0-27.0) mg/dL Est GFR (CKD-EPI) (>=60) BUN/Creatinine Ratio (12.00-20.00) Ratio POC Glucose (mg/dL) 124 H 130 H (70-110) mg/dL Total Protein (6.2-8.2) g/dL Albumin (3.8-4.9) g/dL 10/19/23 10/19/23 Range/Units 05:23 06:49 WBC (4.50-10.00) X 10*3/uL RBC (4.40-5.60) X 10*6/uL Hgb (13.0-17.0) g/dL Hct (39.6-50.0) % MCV (80.0-97.0) FL MCH (27.0-32.0) pg RDW (11.5-14.5) % BUN 40.5 H (9.0-27.0) mg/dL Est GFR (CKD-EPI) 46 L (>=60) BUN/Creatinine Ratio 27.00 H (12.00-20.00) Ratio POC Glucose (mg/dL) 122 H (70-110) mg/dL Total Protein 5.7 L (6.2-8.2) g/dL Albumin 3.6 L (3.8-4.9) g/dL Microbiology - Last 24 Hours (Table) 10/18/23 02:28 Urine Culture - Final Urine,Voided 10/15/23 20:20 Blood Culture - Preliminary Blood 10/15/23 20:05 Blood Culture Gram Stain - Preliminary Blood Blood Culture - Preliminary Assessment and Plan (1) UTI (urinary tract infection) Current Visit: Yes Status: Acute Code(s): N39.0 - URINARY TRACT INFECTION, SITE NOT SPECIFIED SNOMED Code(s): 72035606 Plan: 1patient presented to hospital with sepsis in this patient who did have fever elevated white count source likely UTI as patient noted to have significantly positive UA also with elevated BUN and creatinine concern for possible complicated UTI 2-we will obtain a urine cultures as not has been done on admission though results may be affected as the patient is on antibiotics currently 3-ultrasound of the kidney bladder area did not show any structural abnormality 4-patient seem to have shown clinical improvement on Rocephin which will be continued finishing therapy with Ceftin discussed with admitting team Dictation was produced using [employer] dictation software. please excuse any grammatical, word or spelling errors. Time with Patient: Less than 30
[2023-10-19 19:26] LABS: Glucose,Whole Blood 134 mg/dL (70-110)
[2023-10-20 06:11] LABS: Glucose,Whole Blood 107 mg/dL (70-110)
[2023-10-20 08:44] VITALS: BP 128/70; TEMP 98.6
[2023-10-20 10:54] VITALS: PULSE 45
--- NOTE | 2023-10-20 11:57 | P.DS ---
Providers Date of admission: 10/15/23 22:33 Expected date of discharge: 10/20/23 Attending physician: Ludwig Le Consults: 10/17/23 09:54 Consult Physician Routine Consulting Provider: Chano Zamora Consult Reason/Comments: UTI, sepsis Do you want consulting provider notified?: Yes Primary care physician: Crow Caceres [facility] Course: Discharge diagnoses; Acute urinary tract infection Hematuria secondary to above CKD stage III with possible some elements of mild acute kidney injury Sepsis with fever and leukocytosis Obesity diabetes mellitus Hypertension Hyperlipidemia History of lymphoma s/p chemotherapy in 2019 Coronary artery disease status post stent and CABG Hospital course; This is a pleasant 83 years old male with multiple medical problems as below Patient presents because there is a blood in his urine, however he denies dysuria or urgency. No suprapubic or flank pain. No nausea vomiting. Patient denies chest pain or dyspnea. No diarrhea abdominal pain or vomiting No headache dizziness weakness numbness. No fever or chills. Patient denies smoking alcohol or illicit drugs. Bladder scan was checked and was low Patient vitals checked and he is currently hemodynamically stable however he has a fever on admission 101.1. His labs show a leukocytosis with 18.6, hemoglobin 12.6, creatinine is slightly elevated at 1.6 which is close to baseline 1.0-1.6. Liver enzymes not elevated, INR is 1.0. Troponin is -0.15. Urine analysis is highly suspicious of infection Influenza A and type B, RSV, SARS (coronavirus) are and detected Chest x-ray showing cardiomegaly with mild vascular congestion also has right pulmonary nodule which require CAT scan as an outpatient, patient informed with risk of cancer explained for him and he verbalized understanding and acceptance EKG showing normal sinus rhythm at [address]-T changes and QTc 391 REVIEW OF SYSTEMS: CONSTITUTIONAL: No fever, no malaise,. CARDIOVASCULAR: No chest pain, no palpitations, no syncope. PULMONARY: No shortness of breath, no cough, GASTROINTESTINAL: No diarrhea, no nausea, no vomiting, no abdominal pain. NEUROLOGICAL: No headaches, no weakness, 4/5. Patient seen and examined. Complaining of pain in his buttocks. Denies any fever or chills. /6. Patient seen and examined. Vital signs on this morning showed temperature 98.1, heart rate 54, blood pressure 128/67, patient was bradycardic heart rate dipping into mid 40s yesterday, dose of Lopressor was decreased to 50 mg twice a day. Blood work done this morning showed WBC 10.67, hemoglobin 9.5, platelet count 245, sodium 139, potassium 3.7 BUN 44, creatinine 1.9 10/18. Patient seen and examined. Denies any lightheadedness or dizziness. Vital signs stable 10/19. Patient seen and examined. Discussed with ID, being discharged on Ceftin for 5 more days. Outpatient follow-up with PCP PHYSICAL EXAMINATION: GENERAL: The patient is alert and oriented x3, not in any acute distress. Well developed, well nourished. HEENT: Pupils are round and equally reacting to light. EOMI. No scleral icterus. No conjunctival pallor. Normocephalic, atraumatic. No pharyngeal erythema. No thyromegaly. CARDIOVASCULAR: S1 and S2 present. No murmurs, rubs, or gallops. PULMONARY: Chest is clear to auscultation, no wheezing or crackles. ABDOMEN: Soft, nontender, nondistended, normoactive bowel sounds. No palpable organomegaly. MUSCULOSKELETAL: No joint swelling or deformity. EXTREMITIES: No cyanosis, clubbing, or pedal edema. NEUROLOGICAL: Gross neurological examination did not reveal any focal deficits. SKIN: No rashes. Dictation was produced using [employer] dictation software. please excuse any grammatical, word or spelling errors. Patient Condition at Discharge: Fair Plan - Discharge Summary New Discharge Prescriptions: New cefUROXime axetiL [Cefuroxime] 500 mg PO BID 5 Days #10 tab Metoprolol Tartrate [Lopressor] 50 mg PO BID #60 tab Continue allopurinoL [Zyloprim] 300 mg PO DAILY Aspirin EC [Ecotrin Low Dose] 81 mg PO DAILY HYDROcodone/APAP 7.5-325MG [[place] 7.5-325] 1 tab PO BID Turmeric Root Extract [Turmeric] 500 mg PO BID Magnesium Oxide [Magox 400] 400 mg PO HS Isosorbide Mononitrate ER [Imdur] 60 mg PO DAILY #30 tab Vitamin B Complex 1 cap PO DAILY Ezetimibe [Zetia] 10 mg PO HS Albuterol Inhaler [Ventolin Hfa Inhaler] 2 puff INHALATION RT-Q6H PRN PRN Reason: Shortness Of Breath Tamsulosin [Flomax] 0.4 mg PO BID Colchicine [Colcrys] 0.6 mg PO DAILY PRN PRN Reason: Gout Cholecalciferol (Vitamin D3) [Vitamin D3 (3000 Iu)] 75 mcg PO HS Melatonin 5 mg PO HS PRN PRN Reason: Insomnia Torsemide [Demadex] 20 mg PO DAILY #30 tab Levothyroxine Sodium [Synthroid] 88 mcg PO DAILY Atorvastatin [Lipitor] 80 mg PO HS sitaGLIPtin [Januvia] 50 mg PO DAILY Empagliflozin [Jardiance] 10 mg PO DAILY Albuterol Nebulized [Ventolin Nebulized] 2.5 mg INHALATION RT-Q6H PRN PRN Reason: Shortness Of Breath polyethylene glycoL 3350 [Miralax] 17 gm PO DAILY packet Nystatin 100,000 Unit/gm Powd [Mycostatin Powder] 1 applic TOPICAL BID #1 each Acetaminophen Tab [Tylenol] 650 mg PO Q6HR PRN tab PRN Reason: Fever And/ Or Pain Ranolazine [Ranexa] 500 mg PO BID Nitroglycerin Sl Tabs [Nitrostat] 0.4 mg SL Q5M PRN PRN Reason: Chest Pain Discontinued Metoprolol Tartrate [Lopressor] 150 mg PO BID Discharge Medication List allopurinoL [Zyloprim] 300 mg PO DAILY 07/22/16 [History] Aspirin EC [Ecotrin Low Dose] 81 mg PO DAILY 09/20/18 [History] HYDROcodone/APAP 7.5-325MG [[place] 7.5-325] 1 tab PO BID 07/10/19 [History] Magnesium Oxide [Magox 400] 400 mg PO HS 08/17/19 [History] Turmeric Root Extract [Turmeric] 500 mg PO BID 08/17/19 [History] Isosorbide Mononitrate ER [Imdur] 60 mg PO DAILY #30 tab 08/19/19 [Rx] Vitamin B Complex 1 cap PO DAILY 08/29/19 [History] Ezetimibe [Zetia] 10 mg PO HS 10/24/21 [History] Albuterol Inhaler [Ventolin Hfa Inhaler] 2 puff INHALATION RT-Q6H PRN 11/28/22 [History] Atorvastatin [Lipitor] 80 mg PO HS 11/28/22 [History] Levothyroxine Sodium [Synthroid] 88 mcg PO DAILY 11/28/22 [History] Tamsulosin [Flomax] 0.4 mg PO BID 11/28/22 [History] Cholecalciferol (Vitamin D3) [Vitamin D3 (3000 Iu)] 75 mcg PO HS 05/19/23 [History] Colchicine [Colcrys] 0.6 mg PO DAILY PRN 05/19/23 [History] sitaGLIPtin [Januvia] 50 mg PO DAILY 05/19/23 [History] Albuterol Nebulized [Ventolin Nebulized] 2.5 mg INHALATION RT-Q6H PRN 08/31/23 [History] Empagliflozin [Jardiance] 10 mg PO DAILY 08/31/23 [History] Melatonin 5 mg PO HS PRN 08/31/23 [History] Acetaminophen Tab [Tylenol] 650 mg PO Q6HR PRN tab 09/06/23 [Rx] Nystatin 100,000 Unit/gm Powd [Mycostatin Powder] 1 applic TOPICAL BID #1 each 09/06/23 [Rx] Torsemide [Demadex] 20 mg PO DAILY #30 tab 09/06/23 [Rx] polyethylene glycoL 3350 [Miralax] 17 gm PO DAILY packet 09/06/23 [Rx] Nitroglycerin Sl Tabs [Nitrostat] 0.4 mg SL Q5M PRN 09/10/23 [History] Ranolazine [Ranexa] 500 mg PO BID 09/10/23 [History] Metoprolol Tartrate [Lopressor] 50 mg PO BID #60 tab 10/20/23 [Rx] cefUROXime axetiL [Cefuroxime] 500 mg PO BID 5 Days #10 tab 10/20/23 [Rx] Follow up Appointment(s)/Referral(s): Crow Caceres DO [Primary Care Provider] - 1-2 days [facility] [NON-STAFF] - 1-2 Days ([facility] will call you to schedule your in home visits. ) Discharge Disposition: HOME WITH HOME HEALTH SERVICES
--- NOTE | 2023-10-21 13:21 | P.PN ---
Subjective Progress Note Date: 10/20/23 Principal diagnosis: Is in for follow-up is a urinary tract infection Patient is a 83-year-old male with a past medical history significant for diabetes mellitus hypertension hyperlipidemia PR history of skin cancer lymphoma presenting to the hospital for evaluation generalized weakness patient did have a fever positive UA urinary symptoms concerning for symptomatic UTI. On today's visit that is 10/20/2023, patient has been afebrile, patient is breathing comfortably and is currently on room air, patient denies having any significant cough no chest pain shortness of breath, patient denies nausea vomiting or diarrhea and no abdominal pain, feeling better wants to go home Patient did not have any new labs today, 1 set of blood and urine culture has been negative, 1 set of blood culture with anaerobic gram-positive bacilli Objective - Vital Signs Vital signs: Vital Signs Temp 98.6 F 10/20/23 07:37 Pulse 45 L 10/20/23 10:29 Resp 18 10/20/23 10:29 BP 128/70 10/20/23 07:37 Pulse Ox 94 L 10/20/23 07:37 FiO2 Intake & Output 10/19/23 10/20/23 10/20/23 18:59 06:59 18:59 Intake Total 550 Balance 550 Intake: Oral 550 Other: Voiding Method Urinal Urinal # Voids 3 6 1 - Exam GENERAL DESCRIPTION: An elderly male up in the chair in no distress RESPIRATORY SYSTEM: Unlabored breathing , decreased breath sounds at bases HEART: S1 S2 regular rate and rhythm , ABDOMEN: Soft , no tenderness EXTREMITIES: No edema feet - Labs CBC & Chem 7: 10/19/23 05:23 10/19/23 05:23 Labs: Abnormal Lab Results - Last 24 Hours (Table) 10/19/23 Range/Units 19:24 POC Glucose (mg/dL) 134 H (70-110) mg/dL Microbiology - Last 24 Hours (Table) 10/15/23 20:05 Blood Culture Gram Stain - Preliminary Blood Blood Culture - Preliminary Anaerobic Gm Positive Bacill 10/18/23 02:28 Urine Culture - Final Urine,Voided Assessment and Plan (1) UTI (urinary tract infection) Status: Acute Code(s): N39.0 - URINARY TRACT INFECTION, SITE NOT SPECIFIED SNOMED Code(s): 32131552 (2) Positive blood culture Status: Acute Code(s): R78.81 - BACTEREMIA SNOMED Code(s): 790903326 Plan: 1patient presented to hospital with sepsis in this patient who did have fever elevated white count source likely UTI as patient noted to have significantly positive UA also with elevated BUN and creatinine concern for possible complicated UTI 2-we will obtain a urine cultures as not has been done on admission though results may be affected as the patient is on antibiotics currently 3-ultrasound of the kidney bladder area did not show any structural abnormality 4-patient did have 1 positive blood culture with a little gram-positive bacilli possible contamination is only 1 set and the patient seem to have shown improvement without getting treatment for it keeping in mind improvement on Rocephin consider short course of oral Ceftin on discharge this was discussed with admitting team Dictation was produced using [employer] dictation software. please excuse any grammatical, word or spelling errors. Time with Patient: Less than 30
== END 2023-10-20 12:05 | disposition home health service (06) | DRG 872 ==
LOC: EC 19:31 → 5NMEDONC 22:33 → 4SSUR 23:24
PROVIDERS: ADMIT Hospitalist; ATTEND Hospitalist
PROC: 05HD33Z Insertion of Infusion Device into Right Cephalic Vein, Percutaneous Approach (ICD-10-PCS; principal; 2023-10-17 17:40)
DX: A41.89 Other specified sepsis (principal); N39.0 Urinary tract infection, site not specified; N17.9 Acute kidney failure, unspecified; W19.XXXA Unspecified fall, initial encounter; N18.30 Chronic kidney disease, stage 3 unspecified; I12.9 Hypertensive chronic kidney disease with stage 1 through stage 4 chronic kidney disease, or unspecified chronic kidney disease; E11.22 Type 2 diabetes mellitus with diabetic chronic kidney disease; E78.5 Hyperlipidemia, unspecified; E66.9 Obesity, unspecified; Z92.21 Personal history of antineoplastic chemotherapy; I25.10 Atherosclerotic heart disease of native coronary artery without angina pectoris; R00.1 Bradycardia, unspecified; Z95.5 Presence of coronary angioplasty implant and graft; R31.9 Hematuria, unspecified; I25.2 Old myocardial infarction; M10.9 Gout, unspecified; E11.9 Type 2 diabetes mellitus without complications; M1A.9XX0 Chronic gout, unspecified, without tophus (tophi); Z79.84 Long term (current) use of oral hypoglycemic drugs; Z79.82 Long term (current) use of aspirin; Z79.890 Hormone replacement therapy; Z79.899 Other long term (current) drug therapy; Z85.72 Personal history of non-Hodgkin lymphomas; Z85.828 Personal history of other malignant neoplasm of skin; Z95.1 Presence of aortocoronary bypass graft; Z96.651 Presence of right artificial knee joint; Z98.42 Cataract extraction status, left eye; Z98.41 Cataract extraction status, right eye; Z90.49 Acquired absence of other specified parts of digestive tract; Z86.14 Personal history of Methicillin resistant Staphylococcus aureus infection
CPT/HCPCS: 36410; 36415; 71046; 76770; 76937; 80048; 80053; 81001; 82607; 82746; 83036; 83605; 83735; 84100; 84484; 85025; 85027; 85610; 85730; 87040; 87086; 87636; 93005; 94760; 96374; 99285

== ENCOUNTER → 2023-11-26 | Outpatient (CLI) | payer MEDICARE ==
[2023-11-26 11:54] LABS: African American GFR (CKD) 51 (>60 ml/min/1.73 sqM); Blood Urea Nitrogen 30 mg/dL (9-20); Non-African American GFR(CKD) 44 (>60 ml/min/1.73 sqM)
--- NOTE | 2023-11-26 16:01 | CT ---
EXAMINATION TYPE: CT ChestAbdPelvis w con DATE OF EXAM: 11/26/2023 COMPARISON: CTA chest 05/19/2023 HISTORY: Diffuse large B cell lymphoma, lung nodule, mesenteric mass, follow up. CT DLP: 1871 mGycm CONTRAST: CT scan of the chest, abdomen and pelvis is performed with Oral Contrast and with IV Contrast, patien t injected with 80 mL of Isovue 300. CT Chest: LUNGS: Right upper lobe pulmonary nodule with irregular margins appears slightly larger in size and c urrently measures 1.5 cm versus 1.1 cm previously. There is also a new pleural-based irregular nodule left upper lobe anteriorly on image 27 measuring 2.1 cm. Additional nodule identified left upper lob e medially abutting the mediastinum measuring 1.2 cm versus 1.2 cm previously. This could reflect pos toperative changes prior median sternotomy. No focal consolidation. No pleural effusion. MEDIASTINUM: Thoracic aorta is of normal caliber. The heart is not enlarged. AP window adenopathy m easuring 1.2 cm unchanged. HILAR STRUCTURES: No evidence for mass. No hilar adenopathy is appreciated. OTHER: No significant abnormality. CONTRAST CT ABDOMEN AND PELVIS FINDINGS: LIVER/GB: The gallbladder is surgically absent. No space occupying hepatic lesion. Biliary tree is of normal caliber. PANCREAS: No inflammation. No distinct mass. SPLEEN: No splenic enlargement. No lesion seen. ADRENALS: No nodule. No thickening. KIDNEYS/BLADDER: No hydronephrosis. No nephrolithiasis. No disctinct renal mass. BOWEL: Normal appendix. Normal bowel caliber. No inflammation. GENITAL ORGANS: Moderate prostate gland enlargement. LYMPH NODES: No greater than 1cm abdominal or pelvic lymph nodes are appreciated. AORTA: No significant abnormality. OSSEOUS STRUCTURES: No significant abnormality is seen. OTHER: [place] anterior abdominal wall hernia to the right Supraumbilical region contains 2 segments of small bowel without obstructive change. IMPRESSION: 1. Right upper lobe pulmonary nodule is slightly larger in size. There is pleural based irregular pul monary nodule left upper lobe as well as nodular density abutting the mediastinum and left upper lobe . Malignancy is not excluded and correlation with PET CT is advised. 2. Stable AP window adenopathy.
== END | disposition home or self-care (01) ==
LOC: RADCTMAIN 10:36
PROVIDERS: ATTEND Internal Medicine Hematology & Oncology
DX: C08.9 Malignant neoplasm of major salivary gland, unspecified (principal); C83.33 Diffuse large B-cell lymphoma, intra-abdominal lymph nodes; C83.39 Diffuse large B-cell lymphoma, extranodal and solid organ sites; B02.9 Zoster without complications; Z71.3 Dietary counseling and surveillance
CPT/HCPCS: 82565; 84520; 71260; 74177; 36415; Q9967

== ENCOUNTER → 2024-03-29 | Outpatient (CLI) | payer MEDICARE ==
--- NOTE | 2024-03-29 12:27 | CT ---
EXAMINATION TYPE: CT chest wo con DATE OF EXAM: 03/29/2024 COMPARISON: 11/26/2023 HISTORY: 83-year-old male C83.33 Diffuse large B-cell lymphoma, pulmonary nodules TECHNIQUE: Contiguous axial scanning of the chest without IV contrast. Coronal/sagittal reconstructio ns performed. CT DLP: 660.90mGycm. Automatic exposure control utilized for a dose reduction. FINDINGS: Median sternotomy wires are present at post CABG changes. Heart mildly enlarged without pericardial effusion. 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 Moderate atherosclerotic arch calcifications with conventional a [facility] vessel branching anatomy. Large caliber main right and left pulmonary arteries are 2.9 cm suggests underlying pulmonary arteria l hypertension. New trace left pleural effusion with patchy dependent atelectasis. Subpleural mass anterior left midlung measures 4.4 cm (2.8 cm, previously). Left AP window soft tissue nodule measures 2.3 cm versus 1.2 cm, previously. Subpleural nodule anteromedial left mid lung measures 1.5 cm, unchanged. Subpleural nodule anteromedial left upper lobe measures 1.8 cm versus 1.2 cm, previously. Nodule posterior costophrenic angle on the left measures 1.7 cm and is new. Nodule 1.4 cm posterior right costophrenic angle is also new. 2.4 cm nodule anterior right midlung is larger compared to 1.5 cm previously. Background mild emphysematous change. Visualized upper abdomen shows cholecystectomy clips. Indeterminate medial left renal lesion measurin g 2.6 cm, unchanged from 11/26/2023. Either a solid mass versus complicated cyst. Bones: Extensive changes of DISH throughout. IMPRESSION: 1. Mild cardiomegaly and post-CABG changes. COPD with mild emphysema. Pulmonary arterial hypertension . 2. Enlarging subpleural and pulmonary opacities, largest anterior left midlung currently 4.4 cm versu s 2.8 cm, previously. A couple nodules at the lung bases are new measuring up to 1.7 cm. AP window no de larger at 2.3 cm versus 1.2 cm, previously. 3. Indeterminate medial left kidney lesion measuring 2.6 cm unchanged from 11/26/2023. Attention on fo llow-up. A complicated cyst or other benign etiology is favored at this time. [facility], Workstation: [email or web address], 03/29/2024 12:24 PM
== END | disposition home or self-care (01) ==
LOC: RADCTMAIN 11:12
PROVIDERS: ATTEND Internal Medicine Hematology & Oncology
DX: C83.33 Diffuse large B-cell lymphoma, intra-abdominal lymph nodes
CPT/HCPCS: 71250

== ENCOUNTER 2024-05-22 03:04 | Emergency (ER) | payer MEDICARE ==
[2024-05-22 03:26] VITALS: RESP 18; TEMP 98.1
[2024-05-22 04:14] LABS: Basophils % (A) 0 %; Eosinophils # (A) 0.3 k/uL (0-0.7); Eosinophils % (A) 3 %; HCT 36.8 % (39.0-53.0); HGB 12.2 gm/dL (13.0-17.5); Lymphocytes # (A) 1.3 k/uL (1.0-4.8); Lymphocytes % (A) 12 %; MCH 34.2 pg (25.0-35.0); MCHC 33.1 g/dL (31.0-37.0); MCV 103.5 fL (80.0-100.0); Macrocytosis Moderate; Mean Platelet Volume 7.3; Monocytes # (A) 0.5 k/uL (0-1.0); Monocytes % (A) 5 %; Neutrophils # (A) 8.3 k/uL (1.3-7.7); Neutrophils % (A) 78 %; Platelet Count 228 k/uL (150-450); RBC 3.56 m/uL (4.30-5.90); RDW 15.2 % (11.5-15.5); WBC 10.6 k/uL (3.8-10.6)
[2024-05-22 04:27] LABS: ALT 13 U/L (4-49); African American GFR (CKD) 48 (>60 ml/min/1.73 sqM); Anion Gap 6 mmol/L; Blood Urea Nitrogen 40 mg/dL (9-20); Calcium 9.1 mg/dL (8.4-10.2); Carbon Dioxide 26 mmol/L (22-30); Chloride 102 mmol/L (98-107); Creatine Kinase 89 U/L (55-170); Glucose 111 mg/dL (74-99); Non-African American GFR(CKD) 42 (>60 ml/min/1.73 sqM); Sodium 134 mmol/L (137-145); Total Bilirubin 0.9 mg/dL (0.2-1.3); Total Protein 6.3 g/dL (6.3-8.2)
--- NOTE | 2024-05-22 04:31 | ED ---
Neuro HPI - General Chief Complaint: Neuro Symptoms/Deficit Stated Complaint: L Arm Weakness Time Seen by Provider: 05/22/24 04:28 Source: patient, EMS Mode of arrival: EMS Limitations: no limitations - History of Present Illness Is the patient presenting with stroke symptoms?: Yes Last Known Well Date: 05/21/24 Last Known Well Time: 23:00 -: hour(s) Initial Comments: Patient is an 84-year-old man who is in the emergency department to have evaluation of left arm numbness and weakness. The patient had fallen asleep a little before . He was sleeping in the chair. The patient woke and states that his arm was feeling weak and numb. He denies associated symptoms. Location: left arm History of same: No Place: home Severity: moderate Quality: weak, numb Improves With: none Worsens With: none Context: sudden onset Associated Symptoms: denies other symptoms Treatments Prior to Arrival: none - Related Data Home Medications: Home Medications Medication Instructions Recorded Confirmed allopurinoL [Zyloprim] 300 mg PO DAILY 07/22/16 11/28/23 Aspirin EC [Ecotrin Low Dose] 81 mg PO DAILY 09/20/18 11/28/23 HYDROcodone/APAP 7.5-325MG [[place] 1 tab PO BID 07/10/19 11/28/23 7.5-325] Magnesium Oxide [Magox 400] 400 mg PO HS 08/17/19 11/28/23 Turmeric Root Extract [Turmeric] 500 mg PO BID 08/17/19 11/28/23 Vitamin B Complex 1 cap PO DAILY 08/29/19 11/28/23 Ezetimibe [Zetia] 10 mg PO HS 10/24/21 11/28/23 Albuterol Inhaler [Ventolin Hfa 2 puff INHALATION RT-Q6H PRN 11/28/22 11/28/23 Inhaler] Atorvastatin [Lipitor] 80 mg PO HS 11/28/22 11/28/23 Levothyroxine Sodium [Synthroid] 88 mcg PO DAILY 11/28/22 11/28/23 Tamsulosin [Flomax] 0.4 mg PO BID 11/28/22 11/28/23 Cholecalciferol (Vitamin D3) 75 mcg PO HS 05/19/23 11/28/23 [Vitamin D3 (3000 Iu)] Colchicine [Colcrys] 0.6 mg PO DAILY PRN 05/19/23 11/28/23 Albuterol Nebulized [Ventolin 2.5 mg INHALATION RT-Q6H PRN 08/31/23 11/28/23 Nebulized] Melatonin 5 mg PO HS PRN 08/31/23 11/28/23 Nitroglycerin Sl Tabs [Nitrostat] 0.4 mg SL Q5M PRN 09/10/23 11/28/23 Ranolazine [Ranexa] 500 mg PO BID 09/10/23 11/28/23 Silver Sulfadiazine [Silver 1 applic TOPICAL BID 11/28/23 11/28/23 Sulfadiazine 1%] sitaGLIPtin [Januvia] 50 mg PO DAILY 11/28/23 11/28/23 Previous Rx's Medication Instructions Recorded Isosorbide Mononitrate ER [Imdur] 60 mg PO DAILY #30 tab 08/19/19 Acetaminophen Tab [Tylenol] 650 mg PO Q6HR PRN tab 09/06/23 Nystatin 100,000 Unit/gm Powd 1 applic TOPICAL BID #1 each 09/06/23 [Mycostatin Powder] Torsemide [Demadex] 20 mg PO DAILY #30 tab 09/06/23 polyethylene glycoL 3350 [Miralax] 17 gm PO DAILY packet 09/06/23 Metoprolol Tartrate [Lopressor] 50 mg PO BID #60 tab 10/20/23 Allergies/Adverse Reactions: Allergies Allergy/AdvReac Type Severity Reaction Status Date / Time No Known Allergies Allergy Verified 05/22/24 03:24 Review of Systems ROS Statement: Those systems with pertinent positive or pertinent negative responses have been documented in the HPI. ROS Other: All systems not noted in ROS Statement are negative. Constitutional: Denies: fever Eyes: Denies: vision change Respiratory: Denies: cough, dyspnea Cardiovascular: Reports: chest pain, palpitations. Denies: edema Gastrointestinal: Denies: abdominal pain, nausea, vomiting Genitourinary: Denies: dysuria, hematuria Musculoskeletal: Denies: back pain Skin: Denies: rash Neurological: Denies: headache, weakness, numbness General Exam Limitations: no limitations General appearance: alert, in no apparent distress Head exam: Present: atraumatic, normocephalic Eye exam: Present: normal appearance. Absent: scleral icterus, conjunctival injection ENT exam: Present: normal oropharynx Neck exam: Present: normal inspection, full ROM Respiratory exam: Present: normal lung sounds bilaterally. Absent: respiratory distress, wheezes, rales, rhonchi, stridor, accessory muscle use Cardiovascular Exam: Present: regular rate, normal rhythm, systolic murmur. Absent: diastolic murmur, rubs, gallop GI/Abdominal exam: Present: soft. Absent: distended, tenderness, guarding, rebound, rigid Extremities exam: Present: normal inspection, normal capillary refill. Absent: pedal edema, calf tenderness Back exam: Present: normal inspection. Absent: CVA tenderness (R), CVA tenderness (L) Neurological exam: Present: alert, oriented X3, CN II-XII intact, motor sensory deficit Skin exam: Present: warm, dry, intact, normal color. Absent: rash Stroke MDM - Lab Data Result diagrams: 05/22/24 04:06 05/22/24 04:06 Lab Results 05/22/24 05/22/24 05/22/24 Range/Units 04:06 04:06 04:06 WBC 10.6 (3.8-10.6) k/uL RBC 3.56 L (4.30-5.90) m/uL Hgb 12.2 L (13.0-17.5) gm/dL Hct 36.8 L (39.0-53.0) % MCV 103.5 H (80.0-100.0) fL MCH 34.2 (25.0-35.0) pg MCHC 33.1 (31.0-37.0) g/dL RDW 15.2 (11.5-15.5) % Plt Count 228 (150-450) k/uL MPV 7.3 Neutrophils % 78 % Lymphocytes % 12 % Monocytes % 5 % Eosinophils % 3 % Basophils % 0 % Neutrophils # 8.3 H (1.3-7.7) k/uL Lymphocytes # 1.3 (1.0-4.8) k/uL Monocytes # 0.5 (0-1.0) k/uL Eosinophils # 0.3 (0-0.7) k/uL Basophils # 0.0 (0-0.2) k/uL Macrocytosis Moderate PT 11.0 (10.0-12.5) sec INR 1.0 (<1.2) APTT 25.0 (22.0-30.0) sec Sodium 134 L (137-145) mmol/L Potassium 4.1 (3.5-5.1) mmol/L Chloride 102 (98-107) mmol/L Carbon Dioxide 26 (22-30) mmol/L Anion Gap 6 mmol/L BUN 40 H (9-20) mg/dL Creatinine 1.53 H (0.66-1.25) mg/dL Est GFR (CKD-EPI)AfAm 48 (>60 ml/min/1.73 sqM) Est GFR (CKD-EPI)NonAf 42 (>60 ml/min/1.73 sqM) Glucose 111 H (74-99) mg/dL POC Glucose (mg/dL) (70-110) mg/dL POC Glu Seam Taper Machine ID Calcium 9.1 (8.4-10.2) mg/dL Total Bilirubin 0.9 (0.2-1.3) mg/dL AST 28 (17-59) U/L ALT 13 (4-49) U/L Alkaline Phosphatase 86 (38-126) U/L Creatine Kinase 89 (55-170) U/L Troponin I (0.000-0.034) ng/mL Total Protein 6.3 (6.3-8.2) g/dL Albumin 4.0 (3.5-5.0) g/dL 05/22/24 05/22/24 Range/Units 04:06 04:49 WBC (3.8-10.6) k/uL RBC (4.30-5.90) m/uL Hgb (13.0-17.5) gm/dL Hct (39.0-53.0) % MCV (80.0-100.0) fL MCH (25.0-35.0) pg MCHC (31.0-37.0) g/dL RDW (11.5-15.5) % Plt Count (150-450) k/uL MPV Neutrophils % % Lymphocytes % % Monocytes % % Eosinophils % % Basophils % % Neutrophils # (1.3-7.7) k/uL Lymphocytes # (1.0-4.8) k/uL Monocytes # (0-1.0) k/uL Eosinophils # (0-0.7) k/uL Basophils # (0-0.2) k/uL Macrocytosis PT (10.0-12.5) sec INR (<1.2) APTT (22.0-30.0) sec Sodium (137-145) mmol/L Potassium (3.5-5.1) mmol/L Chloride (98-107) mmol/L Carbon Dioxide (22-30) mmol/L Anion Gap mmol/L BUN (9-20) mg/dL Creatinine (0.66-1.25) mg/dL Est GFR (CKD-EPI)AfAm (>60 ml/min/1.73 sqM) Est GFR (CKD-EPI)NonAf (>60 ml/min/1.73 sqM) Glucose (74-99) mg/dL POC Glucose (mg/dL) 125 H (70-110) mg/dL POC Glu Seam Taper Machine NADER [place] Calcium (8.4-10.2) mg/dL Total Bilirubin (0.2-1.3) mg/dL AST (17-59) U/L ALT (4-49) U/L Alkaline Phosphatase (38-126) U/L Creatine Kinase (55-170) U/L Troponin I <0.012 (0.000-0.034) ng/mL Total Protein (6.3-8.2) g/dL Albumin (3.5-5.0) g/dL - Medical Decision Making This patient is an 84-year-old man who presents to evaluation of left upper extremity weakness and paresthesias. The patient's exam does reveal some subjective weakness versus contralateral. The patient did have CT scan here as well as lab workup. He was feeling better at the completion of the studies. When I reviewed the information with him I did recommend admission to have neurology evaluation but at this point the patient is feeling better and would like to go home. He does have a number of follow-ups scheduled to address his suspected lung malignancies and at this point will defer to patient's wishes. The patient had chest x-ray that I interpreted showing right lung density c oncerning for malignancy. No acute infiltrate or pneumothorax. The patient had CT scan of the brain that I interpreted as negative for acute bony injury, negative for acute intracranial hemorrhage or mass effect Was pt. sent in by a medical professional or institution (, PA, AGRI BUSINESS AGENT, urgent care, hospital, or group home...) When possible be specific @ -[No] Did you speak to anyone other than the patient for history (EMS, parent, family, police, friend...)? What history was obtained from this source @ -[The patient's did contribute to the history Did you review nursing and triage notes (agree or disagree)? Why? @ -[I reviewed and agree with nursing and triage notes] Were old charts reviewed (outside hosp., previous admission, EMS record, old EKG, old radiological studies, urgent care reports/EKG's, group home records)? Report findings @ -[No old charts were reviewed] Differential Diagnosis (chest pain, altered mental status, abdominal pain women, abdominal pain men, vaginal bleeding, weakness, fever, dyspnea, syncope, headache, dizziness, GI bleed, back pain, seizure, CVA, palpatations, mental health, musculoskeletal)? @ -[Differential CVA Ischemic stroke, hemorrhagic stroke, brain tumor, atypical migraine, Wernicke's encephalopathy, seizure, multiple sclerosis, meningitis, encephalitis, hypoglycemia, Guillain-Garcia, electrolytes disturbance, myasthenia gravis.... This is not meant to be an all-inclusive list EKG interpreted by me (3pts min.). @ -[I interpreted as above] X-rays interpreted by me (1pt min.). @ -[Interpreted as above CT interpreted by me (1pt min.). @ -[I interpreted as above U/S interpreted by me (1pt. min.). @ -[None done] What testing was considered but not performed or refused? (CT, X-rays, U/S, labs)? Why? @ -[None] What meds were considered but not given or refused? Why? @ -[None] Did you discuss the management of the patient with other professionals (professionals i.e. BIANCA Goldman, AGRI BUSINESS AGENT, lab, RT, psych nurse, social work program coordinator, lacquer spray booth operator, teacher, special officer automat, case management rn)? Give summary @ -[Case was discussed with the stroke team and their treatment recommendations were incorporated Was smoking cessation discussed for >3mins.? @ -[No] Was critical care preformed (if so, how long)? @ -[Yes, 30 minutes Were there social determinants of health that impacted care today? How? (Homelessness, low income, unemployed, alcoholism, drug addiction, transportation, low edu. Level, literacy, decrease access to med. care, longterm, re hab)? @ -[No] Was there de-escalation of care discussed even if they declined (Discuss DNR or withdrawal of care, Hospice)? DNR status @ -[No] What co-morbidities impacted this encounter? (DM, HTN, Smoking, COPD, CAD, Cancer, CVA, ARF, Chemo, Hep., AIDS, mental health diagnosis, sleep apnea, morbi d obesity)? @ -[Hypertension. Probable lung cancer Was patient admitted / discharged? Hospital course, mention meds given and route, prescriptions, significant lab abnormalities, going to OR and other pertinent info. @ -[See the above Undiagnosed new problem with uncertain prognosis? @ -[No] Drug Therapy requiring intensive monitoring for toxicity (Heparin, Nitro, Insulin, Cardizem)? @ -[No] Were any procedures done? @ -[No] Diagnosis/symptom? @ -[Left arm weakness. Suspected peripheral neuropathy Suspected lung malignancy Acute, or Chronic, or Acute on Chronic? @ -[Acute Uncomplicated (without systemic symptoms) or Complicated (systemic symptoms)? @ -[Uncomplicated Side effects of treatment? @ -[No] Exacerbation, Progression, or Severe Exacerbation? @ -[No] Poses a threat to life or bodily function? How? (Chest pain, [place], [place], pneumonia, PE, COPD, DKA, ARF, appy, cholecystitis, CVA, Diverticulitis, Homicidal, Suicidal, threat to staff... 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 Last Myocardial Infarction Date:: 08/18/19 History of Any Multi-Drug Resistant Organisms: MRSA Date of last positivie culture/infection: 07/22/16 MDRO Source:: LOWER LEGS Past Surgical History: Cholecystectomy, Coronary Bypass/CABG, Heart Catheterization, Joint Replacement Additional Past Surgical History / Comment(s): PICC line insertion/removed, bilateral caract removals, COLONOSCOPY, EGD, CANCEROUS SKIN LESIONS REMOVED, TOTAL RIGHT KNEE REPLACEMENT, 06-04-16 QUAD BYPASS Past Anesthesia/Blood Transfusion Reactions: Previous Problems w/ Anesthesia Additional Past Anesthesia/Blood Transfusion Reaction / Comment(s): HAD A HARD TIME COMING OUT OF ANESTHESIA AFTER CHOLECYSTECTOMY Past Psychological History: No Psychological Hx Reported Smoking Status: Former smoker Past Alcohol Use History: None Reported Past Drug Use History: None Reported - Past Family History Father Family Medical History: Vascular Disorder Additional Family Medical History / Comment(s): POOR CIRCULATION-HAD AMPUTATIONS D/T POOR CIRCULATION Mother Family Medical History: Cancer Additional Family Medical History / Comment(s): STOMACH CANCER Course Vital Signs 05/22/24 05/22/24 05/22/24 03:24 04:53 06:38 Temperature 98.1 F Pulse Rate 70 70 80 Respiratory 18 18 18 Rate Blood Pressure 120/75 163/70 143/66 O2 Sat by Pulse 94 L 95 92 L Oximetry Critical Care Time Critical Care Time: Yes (30 minutes) Disposition Clinical Impression: Paresthesia and pain of left extremity Narrative: Suspected peripheral nerve palsy Disposition: LEFT AGAINST MEDICAL ADVICE Condition: Fair Instructions (If sedation given, give patient instructions): Radial Nerve Palsy (ED) Is patient prescribed a controlled substance at d/c from ED?: No Referrals: Crow Caceres DO [Primary Care Provider] - 1-2 days Abbey Tolliver MD [REFERRING] - 1-2 days
[2024-05-22 04:43] LABS: AST 28 U/L (17-59); Alkaline Phosphatase 86 U/L (38-126); Potassium 4.1 mmol/L (3.5-5.1)
[2024-05-22 04:50] LABS: Glucose,Whole Blood 125 mg/dL (70-110)
--- NOTE | 2024-05-22 05:06 | CT ---
EXAM: CT Angiography Head With Intravenous Contrast CLINICAL HISTORY: Neuro deficit, acute, stroke suspected TECHNIQUE: Axial computed tomographic angiography images of the head with intravenous contrast. CTDI is 23.3 mGy and DLP is 338.05 mGy-cm. This CT exam was performed using one or more of the following dose reduction techniques: automated exposure control, adjustment of the mA and/or kV according to patient size, and/or use of iterative reconstruction technique. MIP reconstructed images were created and reviewed. COMPARISON: Precontrast examination performed earlier FINDINGS: Limitations: Prominent calcification noted involving the right cavernous segment limits detailed evaluation. No occlusion or definite critical stenosis. The petrous and supraclinoid segments are patent. Right internal carotid artery: No acute findings. Intracranial segment is patent with no significant stenosis. No aneurysm. Right anterior cerebral artery: Unremarkable. No occlusion or significant stenosis. No aneurysm. Right middle cerebral artery: Unremarkable. No occlusion or significant stenosis. No aneurysm. Right posterior cerebral artery: Unremarkable. No occlusion or significant stenosis. No aneurysm. Right vertebral artery: Unremarkable as visualized. Left internal carotid artery: Extensive knee are concentric calcification involving the left cavernous and supraclinoid internal carotid artery slightly limits evaluation. No occlusion or obvious critical stenosis. The petrous segment is patent. No aneurysm. Left anterior cerebral artery: Unremarkable. No occlusion or significant stenosis. No aneurysm. Left middle cerebral artery: Unremarkable. No occlusion or significant stenosis. No aneurysm. Left posterior cerebral artery: Unremarkable. No occlusion or significant stenosis. No aneurysm. Left vertebral artery: Unremarkable as visualized. Basilar artery: Unremarkable. No occlusion or significant stenosis. No aneurysm. Brain: No abnormal parenchymal enhancement. IMPRESSION: Prominent atherosclerotic calcification of both cavernous internal carotid arteries without obvious stenosis or occlusion. Otherwise negative intracranial CTA examination. EXAM: CT Angiography Neck With Intravenous Contrast CLINICAL HISTORY: Neuro deficit, acute, stroke suspected TECHNIQUE: Routine carotid CT angiography protocol was performed with intravenous contrast. NASCET criteria using the distal ICAs for comparison were used for evaluation of stenoses. CTDI is 23.3 mGy and DLP is 338.08 mGy-cm. This CT exam was performed using one or more of the following dose reduction techniques: automated exposure control, adjustment of the mA and/or kV according to patient size, and/or use of iterative reconstruction technique. MIP reconstructed images were created and reviewed. COMPARISON: None. FINDINGS: VASCULATURE: Right common carotid artery: The right common carotid artery is patent with atherosclerotic calcification. No occlusion or significant stenosis. No dissection. Right internal carotid artery: There is extensive calcification. The proximal right internal carotid artery, extending to the carotid bifurcation. No significant stenosis by NASCET criteria. The mid to distal right internal carotid artery is patent. No dissection. Right external carotid artery: Unremarkable. No occlusion. Right vertebral artery: Unremarkable. No occlusion or significant stenosis. No dissection. Left common carotid artery: Left common carotid artery is patent without cirrhotic calcification. No occlusion or significant stenosis. No dissection. Left internal carotid artery: Prominent atherosclerotic calcification of the left internal carotid artery, extending to the carotid bifurcation. There is moderate, proximally 50% luminal stenosis by NASCET criteria. The mid to distal left internal carotid artery is patent. No dissection. Left external carotid artery: Unremarkable. No occlusion. Left vertebral artery: Unremarkable. No occlusion or significant stenosis. No dissection. Brachiocephalic and subclavian arteries: The proximal great vessels are calcified but demonstrate no ostial stenosis or occlusion. Aorta: Atherosclerotic calcification of the aortic arch which is only partially included. No dissection or aneurysm. NECK: Bones/joints: Unremarkable. No acute fracture. Soft tissues: Unremarkable. Submandibular/parotid glands: Postsurgical changes noted involving the right submandibular and superior cervical region. Lung apices: There is a spiculated mass, incompletely included along the medial aspect of the left upper lobe adjacent to the pleural surface measuring 2.3 x 1.9 cm. CAROTID STENOSIS REFERENCE USING NASCET CRITERIA: % ICA stenosis = (1 - narrowest ICA diameter/diameter of distal cervical ICA) x 100. Mild - <50% stenosis. Moderate - 50-69% stenosis. Severe - 70-94% stenosis. Near occlusion - 95-99% stenosis. Occluded - 100% stenosis. IMPRESSION: 1. Prominent atherosclerotic calcification of the left internal carotid artery, extending to the carotid bifurcation. There is moderate, proximally 50% luminal stenosis by NASCET criteria. The mid to distal left internal carotid artery is patent. The left common carotid arteries patent. 2. The right common carotid and internal carotid artery demonstrate atherosclerotic changes without significant stenosis or occlusion. 3. The vertebral arteries are patent bilaterally. 4. There is a spiculated mass, incompletely included along the medial aspect of the left upper lobe adjacent to the pleural surface measuring 2. 3 x 1.9 cm. Detailed evaluation limited. 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
--- NOTE | 2024-05-22 05:08 | CT ---
EXAM: CT Head Without Intravenous Contrast CLINICAL HISTORY: Neuro deficit, acute, stroke suspected TECHNIQUE: Axial computed tomography images of the head/brain without intravenous contrast. CTDI is 48.9 mGy and DLP is 1164.8 mGy-cm. This CT exam was performed using one or more of the following dose reduction techniques: automated exposure control, adjustment of the mA and/or kV according to patient size, and/or use of iterative reconstruction technique. COMPARISON: CT head without contrast dated 09/10/2023 FINDINGS: Brain: There are a few areas of decreased attenuation in the deep cerebral white matter consistent with mild small vessel ischemic/degenerative changes. The cerebral and cerebellar sulci are mildly prominent consistent with mild brain atrophy. No hemorrhage. No mass effect. Ventricles: No midline shift. No effacement of the ventricles or significant alteration of the ventricular size. Bones/joints: Unremarkable. No acute fracture. Soft tissues: Unremarkable. Vasculature: Atherosclerotic disease. Stable atherosclerotic calcification of the internal carotid arteries. Similar superficial arterial calcification noted about the scalp. Sinuses: Unremarkable as visualized. No acute sinusitis. Mastoid air cells: Unremarkable as visualized. No mastoid effusion. IMPRESSION: No acute intracranial process or significant alteration from the prior examination.
--- NOTE | 2024-05-22 06:31 | XR ---
EXAMINATION TYPE: XR chest 1V portable DATE OF EXAM: 05/22/2024 COMPARISON: 10/15/2023 HISTORY: Chest pain TECHNIQUE: Single frontal view of the chest is obtained. FINDINGS: There is been prior open heart surgery. There is increasing focal opacity in the right lower lung zone which previously measured approximatel y 2.4 cm and now measures approximately 5.4 cm. In addition a small right pleural effusion has develo ped in the interval. The findings are highly suspicious for neoplasm and CT chest is recommended for further evaluation. Left lung is clear. There is no pneumothorax. There is possible bilateral chronic rotator cuff tears. No focal osseous abnormalities. IMPRESSION: Findings suspicious for neoplasm in the right lower lung zone as described above. Further workup is w arranted including CT chest and possibly PET scan. IMPRESSION: No acute process. [facility], , 05/22/2024 6:29 AM
[2024-05-22 06:40] VITALS: BP 143/66; PULSE 80
== END 2024-05-22 06:40 | disposition left against medical advice (07) ==
LOC: EC 03:04
DX: R20.2 Paresthesia of skin (principal); Z87.891 Personal history of nicotine dependence; Z53.29 Procedure and treatment not carried out because of patient's decision for other reasons
CPT/HCPCS: 36415; 93005; 80053; 82550; 84484; 85025; 85610; 85730; 71045; 70496; 70450; 70498; 99285; Q9967